=== PATIENT | female | born 1955 | race Caucasian/White ===

== ENCOUNTER 2023-03-16 15:34 | Outpatient (OUT) | payer BC, SELFPAY ==
--- NOTE | 2023-03-16 | MM_ITS ---
Patient: JESS BACON Exam Date: 03/16/2023 : 1955 Gender:F Ordering : MRS. MELODY SHEA . Admission #: [id number] Family : Order #: [id number] CLICK HERE TO VIEW EXAM RADIOLOGY REPORT PROCEDURE: MM TOMOSYNTHESIS SCREENING BI COMPARISON: MG MAMM SCREEN QUEENIE W CAD, 06/06/2019. MG MAMM SCREEN QUEENIE W CAD, 01/04/2018. MG MAMM QUEENIE SCRN W CAD DIG, 07/02/2009. MG MAMM QUEENIE SCRN W CAD DIG, 04/07/2004. INDICATIONS: Screening mamm Calculator Name NCI Breast Cancer Risk Assessment Tool 5 Year Breast Cancer Risk 2.50% Lifetime Breast Cancer Risk 8.50% Personal Breast Cancer No Personal Ovarian Cancer No Treatments None Family Cancers None LOCATION: [facility] BREAST COMPOSITION: Extremely dense, which lowers the sensitivity of mammography. FINDINGS: DIAGNOSTIC CATEGORY 1--NEGATIVE. RIGHT BREAST: No significant suspicious finding. No significant change has occurred. LEFT BREAST: No significant suspicious finding. No significant change has occurred. RECOMMENDATIONS: ROUTINE MAMMOGRAM AND CLINICAL EVALUATION IN 12 MONTHS. PLEASE NOTE: A NORMAL MAMMOGRAM DOES NOT EXCLUDE THE POSSIBILITY OF BREAST CANCER. A CLINICALLY SUSPICIOUS PALPABLE LUMP SHOULD BE BIOPSIED. Dictated by: Ludin Aleman M.D. on 03/17/2023 at 12:59 Approved by: Ludin Aleman M.D. on 03/17/2023 at 13:01
== END 2023-03-16 15:35 | disposition home or self-care (01) ==
LOC: MAMMO 15:39
PROVIDERS: PCP Nurse Practitioner; Visit Provider Nurse Practitioner
DX: Z12.31 Encounter for screening mammogram for malignant neoplasm of breast (principal)
CPT/HCPCS: 77063; 77067

== ENCOUNTER 2023-05-07 09:55 | Outpatient (OUT) | payer MEDICARE, SELFPAY ==
--- NOTE | 2023-05-07 10:04 | XR_ITS ---
The [address] [address] Patient Name: JESS BACON MRN: [id number] date: 1955 Sex: F Assigned Patient Location: [facility] Current Patient Location: [facility] Accession/Order Number: [id number] Exam Date: 05/07/2023 10:10 Report Date: 05/07/2023 11:11 At the request of: MELODY SHEA Procedure: XR DEXA axial skeleton DEXA bone density study CLINICAL: 67 years Female. Evaluate bone mineral density. The bone density study was assessed by dual-energy x-ray absorptiometry. Areas examined in AP projection. The test results are expressed in T-Score, which is used for diagnosis for osteoporosis, and reflects the standard deviations from the mean peak bone mineral density in young adults. Additional information regarding the Z-Score reflects the standard deviations from the mean peak bone mineral density for age- and gender-matched subjects. Lumbar Spine (L1-L4): BMD (gm/cm2): 0.911 T-Score: -2.2 Left Hip (total): BMD (gm/cm2): 0.766 T-Score: -1.9 Left Hip (Neck): BMD (gm/cm2): 0.685 T-Score: -2.5 Right Hip (Total): BMD (gm/cm2): 0.749 T-Score: -2.1 Right Hip (Neck): BMD (gm/cm2): 0.700 T-Score: -2.4 XR/XR DEXA axial skeleton IMPRESSION: 1. Bone mineral density by WHO criteria: Osteoporosis. Fracture risk high. REFERENCE: In postmenopausal women and males 50 or over, comparison of the measured bone mineral density with the average value in young normal subjects (the T-Score) has been found to be useful in assessing fracture risk. Fracture risk approximately doubles for each 1.0 standard deviation (SD) that the individuals hip or spine bone mineral density is below the average value of young normal subjects. The World Health Organization (WHO) has provided the following definitions: 1. Normal: T-Score within one standard deviation of young adult mean value (T-Score at or above -1.0). 2. Osteopenia (low bone mass): T-Score more than one standard deviation below the young adult mean but less than 2.5 standard deviations below the young adult mean (T-Score between -1.0 and -2.5). 3. Osteoporosis: T-Score at or more than 2.5 standard deviations below the young adult mean (T-Score at or less than -2.5). 4. Severe Osteoporosis (established osteoporosis): T-Score more than 2.5 standard deviations below young adult and one or more fragility fracture (T-Score less than -2.5 plus fragility fractures). Electronically authenticated by: ALEJANDRO ELMON Date: 05/07/2023 11:11
== END 2023-05-07 09:56 | disposition home or self-care (01) ==
LOC: RAD 09:55
PROVIDERS: PCP Nurse Practitioner; Visit Provider Nurse Practitioner
DX: E28.39 Other primary ovarian failure (principal); M81.0 Age-related osteoporosis without current pathological fracture
CPT/HCPCS: 77080

== ENCOUNTER 2024-03-25 10:15 | Emergency (ER) | payer OTHER, BC, SELFPAY ==
[2024-03-25] VITALS (60 sets, daily range): BP systolic 100–135; BP diastolic 65–81; PULSE 62–96; TEMP 37; O2SAT 91–100; BMI 28.3
--- NOTE | 2024-03-25 10:33 | ECG_ITS ---
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
--- NOTE | 2024-03-25 10:42 | ED_ITS ---
HPI - Abdominal Pain General Chief Complaint: Abdominal Pain Stated Complaint: ABDOMINAL PAIN, DIARRHEA, VOMITING Time Seen by Provider: 03/25/24 10:28 Source: patient Limitations: no limitations History of Present Illness HPI narrative: The patient is coming to us with a 3 days history of generalized abdominal cramping associated with diarrhea, also nausea and vomiting, she mentioned that it all started when she started vomiting, she mentioned that she did not eat or drink anything since because of the nausea The patient denies any blood in stool or blood in vomiting She denies any chest pain sweating , although she did have some subjective fever at home Related Data Home Medications ?Medication ?Instructions ?Recorded ?Confirmed oxybutynin chloride 10 mg 10 mg PO DAILY 03/25/24 03/25/24 tablet,extended release 24 hr Allergies Allergy/AdvReac Type Severity Reaction Status Date / Time No Known Drug Allergies Allergy Verified 03/25/24 10:18 Review of Systems ROS Status of ROS 10 or more systems reviewed and unremark able except as noted in history and below Exam Narrative Exam Narrative: Nurses notes and vital signs reviewed and patient is not hypoxic. General: Well-appearing and in no apparent distress. Skin: Warm, dry, no pallor noted. No rash. Head: Normocephalic, atraumatic. Neck: Supple, non-tender. Eye: Pupils are equal, round and EOMI. No scleral icterus. Ears, Nose, Mouth, and Throat: TM are clear, no nasal mucosal hypertrophy. Oral mucosa is moist, no posterior oropharynx erythema, uvula is mid-line Cardiovascular: Regular Rate and Rhythm without murmur, gallop or rub. Respiratory: No accessory muscle use or respiratory distress. Lungs are clear to auscultation, no wheezing, rales or rhonchi Chest Wall: no tenderness Back: No midline thoracic or lumbar vertebral tenderness. No CVA tenderness Musculoskeletal: normal ROM, no calf or popliteal tenderness, no lower ex tremity edema/swelling GI: Abdomen is soft, non-distended. Normal bowel sounds. No masses appreciated. Epigastric discomfort mild, no rebound, guarding, or rigidity noted. Neurological: A&O x4. No cranial nerve dysfunction observed. No truncal ataxia. Moves all extremities. Sensation intact. Psychiatric: Cooperative and interactive. Normal mood and affect. Constitutional Vital Signs, click to edit/add: Last Vital Signs Temp 98.6 F 03/25/24 10:18 Pulse 70 03/25/24 19:00 Resp 25 H 03/25/24 19:00 BP 130/71 03/25/24 14:41 Pulse Ox 99 03/25/24 19:00 O2 Del Method Room Air 03/25/24 12:33 Course Vital Signs Vital signs: Vital Signs Temperature 98.6 F 03/25/24 10:18 Pulse Rate 88 03/25/24 10:18 Respiratory Rate 18 03/25/24 10:18 Blood Pressure 135/78 03/25/24 10:18 Pulse Oximetry 98 03/25/24 10:18 Temperature 98.6 F 03/25/24 10:18 Pulse Rate 70 03/25/24 19:00 Respiratory Rate 25 H 03/25/24 19:00 Blood Pressure 130/71 03/25/24 14:41 Pulse Oximetry 99 03/25/24 19:00 Oxygen Delivery Method Room Air 03/25/24 12:33 MDM - Abdominal Pain MDM Narrative Medical decision making narrative: The patient EKG in the ER showing sinus rhythm with a heart rate of [address] elevation but there is multiple T wave inversion that are nonspecific in multiple leads The patient T wave inversion Was in lead to 3 and aVF as well as V4 V5 and V6 The patient CBC and chemistry showed no acute significant pathology except for mild leukocytosis and she also had a troponin that is around 6000 The patient had no chest pain at any time her nausea responded to Zofran in the ER The patient had a CAT scan without contrast showing no acute pathology The patient was provided with aspirin 324 mg p.o. The patient case was discussed with in cardiology service plan initia lly was to admit the patient to our facility but I spoke with the hospitalist and called and Dr. Rutherford expressed that the right now the patient preferably will be better to be transferred to cardiology equipped facility and Dr. Stiles agree Patient was accepted by Dr. Cancino awaiting to be transferred Lab Data Labs: Lab Results 03/25/24 03/25/24 03/25/24 Range/Units 10:30 11:30 14:07 WBC 12.6 H (4.0-11.0) 10^3/uL RBC 5.46 H (4.20-5.40) 10^6/uL Hgb 15.8 (12.0-16.0) g/dL Hct 48.8 H (36.0-48.0) % MCV 89.4 (81.0-99.0) fL MCH 28.9 (26.7-34.0) pg MCHC 32.4 (29.9-35.2) g/dL RDW 13.8 (11.0-15.0) % Plt Count 273 (150-450) 10^3/uL MPV 9.7 (9.5-13.5) fL Neut % (Auto) 75.5 H (43.0-75.0) % Lymph % (Auto) 16.6 L (20.5-60.0) % [place] % (Auto) 6.2 (1.7-12.0) % Eos % (Auto) 1.2 (0.9-7.0) % Baso % (Auto) 0.3 (0.2-2.0) % Neut # (Auto) 9.5 H (1.4-6.5) 10^3/uL Lymph # (Auto) 2.1 (1.2-3.8) 10^3/uL [place] # (Auto) 0.8 (0.3-0.8) 10^3/uL Eos # (Auto) 0.2 (0.0-0.7) 10^3/uL Baso # (Auto) 0.0 (0.0-0.1) 10^3/uL Abs Immat Gran (auto) 0.03 (0.00-0.03) 10^3/uL Imm/Tot Granulo (auto) 0.2 (0.0-0.5) % Sodium 140 (136-145) mmol/L Potassium 3.3 L (3.5-5.1) mmol/L Chloride 104 (98-107) mmol/L Carbon Dioxide 28.6 (21.0-32.0) mmol/L Anion Gap 10.7 BUN 12.0 (7.0-18.0) mg/dL Creatinine 0.84 (0.55-1.02) mg/dL Est GFR ( Amer) >60 (>=60) Est GFR (Non-Af Amer) >60 (>=60) BUN/Creatinine Ratio 14.3 Glucose 115 H (74-106) mg/dL Calcium 9.1 (8.5-10.1) mg/dL Magnesium 2.0 (1.8-2.4) mg/dL Total Bilirubin 0.8 (0.2-1.0) mg/dL AST 50 H (15-37) U/L ALT 34 (14-59) U/L Alkaline Phosphatase 49 (46-116) U/L Troponin I High Sens 6445.3 H* 5862.4 H* 5673.2 H* (4.0-51.3) pg/mL Total Protein 7.2 (6.4-8.2) g/dL Albumin 3.7 (3.4-5.0) g/dL Globulin 3.5 g/dL Albumin/Globulin Ratio 1.1 Lipase 34.0 (16.0-77.0) U/L Discharge Plan Discharge Chief Complaint: Abdominal Pain Clinical Impression: Non-ST elevation AL (NSTEMI), Intractable nausea and vomiting Time of Disposition Decision: 14:34 Prescriptions / Home Meds: No Action oxybutynin chloride 10 mg tablet extended release 24hr 10 mg PO DAILY Print Language: Guyanese Referrals: MELODY SHEA [Primary Care Provider] - 1 week
[2024-03-25 10:43] LABS: Basophils Percent Auto 0.3 % (0.2-2.0); Eosinophils Absolute Auto 0.2 10^3/uL (0.0-0.7); Eosinophils Percent Auto 1.2 % (0.9-7.0); Hematocrit 48.8 % (36.0-48.0); Hemoglobin 15.8 g/dL (12.0-16.0); Immature Granulocytes Abs Auto 0.03 10^3/uL (0.00-0.03); Immature Granulocytes Pct Auto 0.2 % (0.0-0.5); Lymphocytes Absolute Auto 2.1 10^3/uL (1.2-3.8); Lymphocytes Percent Auto 16.6 % (20.5-60.0); Mean Corpuscular HGB Conc 32.4 g/dL (29.9-35.2); Mean Corpuscular Hemoglobin 28.9 pg (26.7-34.0); Mean Corpuscular Volume 89.4 fL (81.0-99.0); Mean Platelet Volume 9.7 fL (9.5-13.5); Monocytes Absolute Auto 0.8 10^3/uL (0.3-0.8); Monocytes Percent Auto 6.2 % (1.7-12.0); Neutrophils Absolute Auto 9.5 10^3/uL (1.4-6.5); Neutrophils Percent Auto 75.5 % (43.0-75.0); Platelet Count 273 10^3/uL (150-450); Red Blood Count 5.46 10^6/uL (4.20-5.40); Red Cell Distribution Width 13.8 % (11.0-15.0); White Blood Count 12.6 10^3/uL (4.0-11.0)
[2024-03-25] MEDS: FAMOTIDINE/PF 20 MG/2 ML VIAL IV (10:44)
[2024-03-25] MEDS: ONDANSETRON PF 4 MG/2 ML VIAL IV (10:44)
[2024-03-25] MEDS: 0.9 % SODIUM CHLORIDE 1,000 ML 1000 ML IV (10:44)
[2024-03-25] MEDS: KETOROLAC TROMETHAMINE 30 MG/ML VIAL 15 MG IVP (10:44)
[2024-03-25 10:56] LABS: Alanine Aminotransferase 34 U/L (14-59); Albumin Globulin Ratio 1.1; Albumin Level 3.7 g/dL (3.4-5.0); Alkaline Phosphatase 49 U/L (46-116); Anion Gap 10.7; Aspartate Amino Transferase 50 U/L (15-37); BUN Creatinine Ratio 14.3; Bilirubin Total 0.8 mg/dL (0.2-1.0); Calcium 9.1 mg/dL (8.5-10.1); Carbon Dioxide 28.6 mmol/L (21.0-32.0); Chloride 104 mmol/L (98-107); Estimated GFR (African America >60 (>=60); Estimated GFR (Non-African Ame >60 (>=60); Globulin 3.5 g/dL; Glucose 115 mg/dL (74-106); Potassium 3.3 mmol/L (3.5-5.1); Sodium 140 mmol/L (136-145); Total Protein 7.2 g/dL (6.4-8.2)
[2024-03-25 10:59] LABS: Troponin I High Sensitivity 6445.3 pg/mL (4.0-51.3)
--- NOTE | 2024-03-25 11:24 | XR_ITS ---
The [address] [address] Patient Name: JESS BACON MRN: [id number] date: 1955 Sex: F Assigned Patient Location: ER Current Patient Location: ER Accession/Order Number: [id number] Exam Date: 03/25/2024 11:50 Report Date: 03/25/2024 12:17 At the request of: ELINOR RODRIGUEZ Procedure: XR chest 1V EXAM: XR chest 1V HISTORY: . pain epigastric COMPARISON: None. TECHNIQUE: Single view of the chest FINDINGS: Heart and vascularity are unremarkable. Lungs are free of focal infiltrates. EKG leads overlie the chest. XR/XR chest 1V IMPRESSION: No acute heart or lung disease identified. Electronically authenticated by: ISA SUTTON Date: 03/25/2024 12:17
[2024-03-25 11:55] LABS: Troponin I High Sensitivity 5862.4 pg/mL (4.0-51.3)
--- NOTE | 2024-03-25 12:52 | CT_ITS ---
[place] [id number] Patient Name: JESS BACON MRN: [id number] date: 1955 Sex: F Assigned Patient Location: ER Current Patient Location: ER Accession/Order Number: [id number] Exam Date: 03/25/2024 13:00 Report Date: 03/25/2024 14:13 At the request of: ELINOR RODRIGUEZ Procedure: CT abdomen pelvis wo con EXAMINATION: CT abdomen pelvis wo con, 03/25/2024 1:00 PM EDT HISTORY: abd pain COMPARISON: 05/04/2020 TECHNIQUE: CT scan of the abdomen and pelvis was performed without IV contrast. CT dose reduction technique was used, including Automated Exposure Control. FINDINGS: LOWER CHEST: The visualized lungs are clear. LIVER: Unremarkable. GALLBLADDER AND BILIARY SYSTEM: Status post cholecystectomy. The common bile duct measures up to 8 mm. No significant intrahepatic biliary ductal dilatation. SPLEEN: Unremarkable. PANCREAS: Unremarkable. ADRENAL GLANDS: Unremarkable. KIDNEYS AND URETERS: No nephrolithiasis or hydronephrosis. Bilateral parapelvic cysts noted. There is a fat-containing lesion in the lower pole the right kidney measuring 6 mm compatible with an angiomyolipoma. BLADDER: Unremarkable. GASTROINTESTINAL TRACT: Sigmoid diverticulosis without evidence of diverticulitis. No evidence of bowel obstruction. Status post appendectomy. VASCULATURE: The abdominal aorta is normal in caliber. RETROPERITONEUM: No lymphadenopathy. PERITONEUM/MESENTERY: No abdominal ascites. No free air. PELVIS: Small amount of free fluid in the pelvis. No lymphadenopathy. BODY WALL: Tiny fat-containing umbilical hernia. BONES: No acute abnormality. CT/CT abdomen pelvis wo con IMPRESSION: 1. No acute process in the abdomen or pelvis. 2. Small amount of free fluid in the pelvis. 3. Sigmoid diverticulosis without evidence of diverticulitis. Electronically authenticated by: TIFFANIE MARI Date: 03/25/2024 14:13
[2024-03-25] MEDS: ASPIRIN 81 MG TAB.CHEW 324 MG PO (12:55)
[2024-03-25 14:30] LABS: Troponin I High Sensitivity 5673.2 pg/mL (4.0-51.3)
--- NOTE | 2024-03-25 14:45 | ECG_ITS ---
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
== END 2024-03-25 20:42 | disposition short-term general hospital (02) ==
PROVIDERS: Emergency Provider Emergency Medicine; PCP Nurse Practitioner
DX: I21.4 Non-ST elevation (NSTEMI) myocardial infarction (principal); R11.2 Nausea with vomiting, unspecified
CPT/HCPCS: 36415; 71045; 74176; 80053; 83690; 83735; 84484; 85025; 93005; 96361; 96374; 96375; 99285; J1885; J2405

== ENCOUNTER 2024-05-25 14:53 | Outpatient (OUT) | payer OTHER, BC, SELFPAY ==
--- NOTE | 2024-05-25 | XR_ITS ---
The [address] [address] Patient Name: JESS BACON MRN: [id number] date: 1955 Sex: F Assigned Patient Location: Current Patient Location: Accession/Order Number: [id number] Exam Date: 05/25/2024 14:56 Report Date: 05/26/2024 12:51 At the request of: IRA DUMONT Procedure: XR foot RT min 3V PROCEDURE: XR foot RT min 3V COMPARISON: None. HISTORY: RIGHT FOOT PAIN FINDINGS: BONES:No acute fracture or dislocation. Mild enthesopathic spurring of the calcaneus at the Achilles and plantar insertions. Mild to moderate degenerative change first metatarsal-phalangeal joint SOFT TISSUES:Negative. No visible soft tissue swelling. EFFUSION:None visible. OTHER: Negative. XR/XR foot RT min 3V IMPRESSION: Degenerative changes Electronically authenticated by: ISA RIOS Date: 05/26/2024 12:51
== END 2024-05-25 14:54 | disposition home or self-care (01) ==
LOC: EC 14:55
PROVIDERS: PCP Nurse Practitioner; Visit Provider Physician Assistant
DX: M79.671 Pain in right foot (principal)
CPT/HCPCS: 73630

== ENCOUNTER 2024-05-31 11:50 | Outpatient (OUT) | payer OTHER, BC, SELFPAY ==
--- NOTE | 2024-05-31 12:00 | XR_ITS ---
The [place] [id number] Patient Name: JESS BACON MRN: [id number] date: 1955 Sex: F Assigned Patient Location: [facility] Current Patient Location: Accession/Order Number: [id number] Exam Date: 05/31/2024 12:03 Report Date: 06/02/2024 06:23 At the request of: MELODY SHEA Procedure: XR hip RT min 2V PROCEDURE: XR hip RT min 2V HISTORY: Fall, Severe Right Low Back Pain, Right Hip Pain COMPARISON: None. FINDINGS: BONES:No fracture, acute abnormality, or significant arthropathy. SOFT TISSUES:No visible soft tissue swelling. EFFUSION:None visible. OTHER: Negative. XR/XR hip RT min 2V IMPRESSION: 1. No acute bone abnormality or significant degenerative joint disease. Electronically authenticated by: JOSE FRANCISCO MURCIA Date: 06/02/2024 06:23
--- OUTSIDE RECORDS SUMMARY | 2024-05-31 12:12 | XMS_ITS | CCD ---
Author Organization [facility] Care Team Providers Care Lifeguard Name Role Phone ABIOLA, DR GINA Berg Primary Care Unavailable PAY, DR ROBLES Admitting Unavailable PAY, DR ROBLES Attending Unavailable IVETTE RICHMOND Consulting Unavailable Millie Gonzalez Primary Care Physician [phone] LAUREANO AMARAL Referring Unavailable LAUREANO AMARAL Attending Unavailable LAUREANO AMARAL Referring Unavailable LARISSA SUTTON Attending Unavailable LARISSA SUTTON Referring Unavailable CANCINO, MAXIMINO CHUL Referring Unavailable MARY GARCIA Referring Unavailabl e CANCINO, MAXIMINO CHUL Referring Unavailable HORANI, SUDHIR Admitting Unavailable HOLGUIN, GISELA Attending Unavailable DIAB, VANNA Referring Unavailable ALGHOTHLEXI MOHAMAD Attending Unavailable MARY GARCIA Referring Unavailabl e MARY GARCIA Referring Unavailabl e CARLOS العراقي Attending Provider MD Luisito Roth Primary Care Provider Zoila العراقي Attending Unavailable Zoila لاعراقي Admitting Unavailable Luisito Roth Primary Care Unavailable Millie Gonzalez Attending Unavailable Luisito Roth Attending Unavailable CarlosMillie Attending Unavailable CarlosMillie Attending Unavailable CarlosMillie Attending Unavailable CarlosMillie Attending Unavailable CarlosMillie Attending Unavailable Luisito Roth Admitting Unavailable PHILLIP NUNEZ Attending Unavailable CarlosMillie Attending Unavailable CarlosMillie Attending Unavailable CarlosMillie Attending Unavailable CarlosMillie Attending Unavailable CarlosMillie Attending Unavailable CarlosMillie Attending Unavailable Allergies Allergy Classification Reported Allergen(s) Allergy Type Date of Onset Reaction(s) Facility (1 source) No Known Medication Allergies; Translations: [No Known Medication Allergies] Propensity to adverse reactions (disorder) [facility] Repository Medications Current Medications Medication Drug Class(es) Dates Sig (Normalized) Sig (Original) aspirin 81 mg delayed release oral tablet (1 source) Platelet Aggregation Inhibitor, Nonsteroidal Anti-inflammatory Drug Start: 4 take 81 mg by mouth once daily Aspirin Active 81 MG PO Daily May 27, 2024 12:00am azithromycin 500 mg oral tablet (1 source) Macrolide Antimicrobial Start: 4 End: 4 take 1 tablet by mouth once daily Zithromax 500 mg oral tablet 500 mg = 1 tab(s), Oral, Daily, X 5 day(s), # 5 tab(s), Refills(s) 0, Pharmacy: [id number], 158, cm, 10/29/23 13:27:00 EST, Height/Length Dosing, 53, kg, 10/29/23 13:27:00 EST, Weight Dosing Start Date: 10/29/23 Stop Date: 11/03/23 Status: Ordered Cholecalciferol (1 source) Vitamin D Start: 1 take 100 ug by mouth once daily Cholecalciferol (Vitamin D3) Active 100 MCG PO Daily January 20, 2021 12:00am Compression stockings (1 source) Start: 3 Compression stockings Compression stockings, See Instructions, 1 EA, 0, wear stocking when on your feet > 8 hours per day, Supply Start Date: 06/30/23 Status: Ordered lidocaine 0.05 mg/mg medicated patch (1 source) Antiarrhythmic, Amide Local Anesthetic Start: 4 apply 1 dose topically once daily Lidocaine Active 1 PATCH TOPICAL Daily 20 06May 27, 2024 12:00am leave on most painful area for up to 12 hrs meloxicam 15 mg oral tablet (1 source) Nonsteroidal Anti-inflammatory Drug Start: 4 Meloxicam Active MG PO May 27, 2024 12:00am methylPREDNISolone (2 sources) Corticosteroid Start: 4 Methylprednisolone Active MG PO May 27, 2024 12:00am Start: 10-25-2023 End: 02-01-2024 take 1 tablet by mouth once Methylprednisolone (Medrol (Marco Antonio)) 4 mg tablets,dose pack Discontinued 0 PO per package directions October 25, 2023 1:00am February 01, 2024 9:33am PO PER PKG DIR for 6 days 24 hr oxybutynin chloride 10 mg extended release oral tablet (1 source) Cholinergic Muscarinic Antagonist Start: 05-27-2024 Oxybutynin Chloride Active MG PO May 27, 2024 12:00am Vitamin D3 1999 intl units oral Tab (1 source) Start: 11-30-2022 take 1 tablet by mouth once daily Vitamin D3 2000 intl units oral Tab 50 mcg, Oral, Daily, tab(s), Refills(s) 0 Start Date: 11/30/22 Status: Ordered Completed/Discontinued Medications Medication Drug Class(es) Dates Sig (Normalized) Sig (Original) amoxicillin 500 mg oral capsule (1 source) Penicillin-class Antibacterial Start: 02-01-2024 End: 05-27-2024 take 500 mg by mouth twice daily Amoxicillin Discontinued 500 MG PO Twice daily 25 06February 01, 2024 12:00am May 27, 2024 2:06pm benzonatate 200 mg oral capsule (1 source) Non-narcotic Antitussive Start: 10-25-2023 End: 02-01-2024 Benzonatate Discontinued 200 MG PO 2-3 TIMES PER DAY October 25, 2023 1:00am February 01, 2024 9:33am cephalexin 500 mg oral capsule (1 source) Cephalosporin Antibacterial Start: 10-25-2023 End: 02-01-2024 Cephalexin Discontinued MG PO October 25, 2023 1:00am February 01, 2024 9:33am escitalopram 5 mg oral tablet (3 sources) Serotonin Reuptake Inhibitor Start: 02-01-2024 End: 05-27-2024 take 5 mg by mouth once daily Escitalopram Oxalate Discontinued 5 MG PO Daily February 01, 2024 9:37am May 27, 2024 2:07pm Start: 10-25-2023 End: 02-01-2024 Escitalopram Oxalate Discont inued MG PO October 25, 2023 1:00am February 01, 2024 9:37am Start: 05-25-2023 take 1 tablet by phillip once daily escitalopram 5 mg oral tablet 5 mg = 1 tab(s), Oral, Daily, # 90 tab(s), Refills(s) 3, Pharmacy: [id number], 157, cm, 05/25/23 15:27:00 EDT, Height/Length Dosing, 55.1, kg, 05/25/23 15:27:00 EDT, Weight Dosing Start Date: 05/25/23 Status: Ordered Problems Problem Classification Problem Date Documented Date Episodic/Chronic Acute bronchitis (2 sources) Acute bronchitis; Translations: [Acute bronchitis, unspecified] Onset: 10-29-2023 Episodic Acute myocardial infarction (2 sources) Non-ST elevation (NSTEMI) myocardial infarction; Translations: [Non-ST elevation (NSTEMI) myocardial infarction] Onset: 03-25-2024 Chronic Anxiety disorders (3 sources) Anxiety disorder; Translations: [Anxiety disorder, unspecified] Onset: 03-25-2024 11-27-2022 Chronic Chronic obstructive pulmonary disease and bronchiectasis (1 source) Bronchitis; Translations: [Bronchitis, not specified as acute or chronic] 02-01-2024 Episodic E Codes: Fall (2 sources) Fall; Translations: [Unspecified fall, initial encounter] Onset: 05-27-2024 05-27-2024 Episodic Immunizations and screening for infectious disease (1 source) Contact with and (suspected) exposure to other viral communicable diseases; Translations: [Contact with or exposure to other viral diseases] 02-01-2024 Episodic Mycoses (1 source) Onychomycosis 11-27-2022 Episodic Noninfectious gastroenteritis (2 sources) Noninfective gastroenteritis and colitis, unspecified; Translations: [Noninfective gastroenteritis and colitis, unspecified] Onset: 03-25-2024 Episodic Nutritional deficiencies (1 source) Vitamin D deficiency; Translations: [Vitamin D deficiency, unspecified] 02-01-2024 Chronic Other circulatory disease (4 sources) Hemorrhage, not elsewhere classified; Translations: [HEMORRHAGE NOT ELSEWHERE CLASSIFIED] Onset: 07-17-2022 Episodic Other connective tissue disease (1 source) Dupuytren's contracture 11-27-2022 Episodic Other connective tissue disease (1 source) Triggering of digit 09-30-2023 Episodic Other nervous system disorders (1 source) 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 Chronic Other nervous system disorders (1 source) Neuropathy of lower limb 06-30-2023 Chronic Other non-traumatic joint disorders (1 source) Pain in elbow 06-30-2023 Episodic Other screening for suspected conditions (not mental disorders or infectious disease) (3 sources) Abnormal result of other cardiovascular function study; Translations: [Patient encounter status] Onset: 03-25-2024 Episodic Other skin disorders (1 source) Ingrowing great toenail 09-30-2023 Episodic Other upper respiratory infections (4 sources) Acute frontal sinusitis, unspecified; Translations: [Acute frontal sinusitis] Onset: 10-29-2023 Episodic Otitis media and related conditions (1 source) Acute bilateral otitis media ; Translations: [Otitis media, unspecified, bilateral] 02-01-2024 Episodic Residual codes; unclassified (2 sources) Other specified postprocedural states; Translations: [Other specified postprocedural states] Onset: 03-25-2024 Episodic Spondylosis; intervertebral disc disorders; other back problems (2 sources) Lumbosacral spondylosis; Translations: [Spondylosis] 11-27-2022 Chronic Spondylosis; intervertebral disc disorders; other back problems (2 sources) Low back pain; Translations: [Low back pain] 05-27-2024 Episodic Syncope (1 source) Syncope 11-27-2022 Episodic Unclassified (2 sources) Patient encounter status 03-03-2023 Results Test Name Value Interpretation Reference Range Facil ity Ambulatory Visit Summaryon 0 05-29-2024 Ambulatory Visit Summary Ambulatory Visit Summary JESS BACON Sola :1955 Visit Date:05/29/2024 Ambulatory Visit Instructions Your Diagnosis BMI 21.0-21.9, adult Nonsmoker Your Care Team Attending Physician - Millie Florentino Primary Care Physician - Millie Florentino This Is Your Medications List Misc Prescription (Compression stockings) aspirin cholecalciferol (Vitamin D3 2000 intl units oral Tab) meloxicam (meloxicam 15 mg Tab) oxybutynin (oxybutynin 10 mg ER Tab) Procedures Performed Appendectomy, Cholecystectomy, Colonoscopy, D (dilation) and C (curettage) of uterus, Partial hysterectomy. Discharge Vitals Temperature (Temporal Artery) 36.5 ?C Heart Rate (Peripheral) 62 Respiratory Rate 16 Blood Pressure 130/72 Height 158 cm Height 62 in Weight 52.5 kg Weight 115.5 lb BMI 21.03 What to do next Scheduled Follow-Up Appointments 2023 2:30 PM EDT With: Where: [address] [address]- 2023 3:00 PM EDT With: Millie Florentino Where: [address] [address]- Medications What How Much When Why Instructions Unchanged aspirin 81 Milligram By Mouth Every day Unchanged cholecalciferol (Vitamin D3 2000 intl units oral Tab) 50 Microgram By Mouth Every day Unchanged meloxicam (meloxicam 15 mg Tab) See instructions Take 1 tablet by mouth once daily Unchanged Misc Prescription (Compression stockings) See instructions BMI 22.0-22.9, adult Non-smoker wear stocking when on your feet > 8 hours per day Unchanged oxybutynin (oxybutynin 10 mg ER Tab) See instructions Take 1 tablet by mouth once daily Allergies No Known Medication Allergies Problems Ongoing - Any problem that you are currently receiving treatment for. Acute bronchitis Acute frontal sinusitis Anxiety disorder Breast cancer screening by mammogram Cerumen impaction Dupuytrens contracture Fluid level behind tympanic membrane of both ears Foot pain, right Gastritis History of non-ST elevation myocardial infarction (NSTEMI) Hospital discharge follow-up Ingrown right big toenail Lower extremity neuropathy Onychomycosis Osteoarthritis of lumbosacral spine Radiculopathy Right elbow pain Sore throat Spondylosis Syncope Trigger ring finger of right hand Wellness examination Historical - Any problem that you are no longer receiving treatment for. NSTEMI (non-ST elevated myocardial infarction) Patient Survey You may receive a survey via text or e-mail asking about your office visit. Please share your experience with us by completing your survey. We appreciate your feedback and thank you for choosing us for your care. Normal [facility] Family Medicine Office/Clini c Noteon 05-29-2024 Family Medicine Office/Clinic Note Family Medicine Office/Clinic Note Chief Complaint Pain following fall HPI Staff Pt presents today after a fall on Wednesday Onset: Wednesday Location:above Rt hip/Rt side Characteristics:_deni es bruising Aggravated by: walking, sitting, standing Relieved by: Tylenol History of Present Illness pt had a fall 2 days and landed on corner of coffee table. went to urgent care. x rays were negative Review of Systems PHQ Score Initial Depression Screen Score: 0 SCORE Physical Exam Vitals & Measurements T: 36.5 ?C(Temporal Artery) HR: 62(Peripheral) RR: 16 BP: 130/72 SpO2: 98% HT: 62 in HT: 158 cm WT: 52.5 kg WT: 115.5 lb BMI: 21.03 General: alert, no acute distress ENMT: oral mucosa moist, no pharyngeal erythema or exudate Cardiovascular: regular rate and rhythm, normal peripheral perfusion Respiratory: Lungs CTA, respirations non labored Extremities: no deformity, no trauma Neurological: oriented x 4, LOC appropriate for age, CN II-XII intact, motor strength equal & normal bilaterally, speech normal tenderness and bruising of right lower back Assessment/Plan 1. History of recent fall (Z91.81: History of falling) pt was trying to clean ceiling fan and fell and landed on corner of coffee table. Ordered: tramadol, 50 mg = 1 tab(s), Oral, q12hr, PRN for pain, # 30 tab(s), Refills(s) 0, Pharmacy: [facility], 158, cm, 05/29/24 13:41:00 EDT, Height/Length Dosing, 52.5, kg, 05/29/24 13:41:00 EDT, Weight Dosing 2. Right low back pain (M54.50: Low back pain, unspecified) pt fell and landed on right lower back Ordered: tramadol, 50 mg = 1 tab(s), Oral, q12hr, PRN for pain, # 30 tab(s), Refills(s) 0, Pharmacy: [facility], 158, cm, 05/29/24 13:41:00 EDT, Height/Length Dosing, 52.5, kg, 05/29/24 13:41:00 EDT, Weight Dosing 3. BMI 21.0-21.9, adult (Z68.21: Body mass index [BMI] 21.0-21.9, adult) BMI education Ordered: tramadol, 50 mg = 1 tab(s), Oral, q12hr, PRN for pain, # 30 tab(s), Refills(s) 0, Pharmacy: [facility], 158, cm, 05/29/24 13:41:00 EDT, Height/Length Dosing, 52.5, kg, 05/29/24 13:41:00 EDT, Weight Dosing Body Mass Index (BMI) documented 3008F Current tobacco non-user 1036F Depression Screening Negative 3352F Discharge medications reconciled with current medications in outpatient record 1111F Medication list documented in medical record 1159F Patient screen for fall risk: no falls in last year or 1 fall with no injury in last year 1101F Review of all meds by a prescribing practitioner or clinical pharmacist documented in EHR 1160F 4. Nonsmoker (Z78.9: Other specified health status) continue not smoking Ordered: tramadol, 50 mg = 1 tab(s), Oral, q12hr, PRN for pain, # 30 tab(s), Refills(s) 0, Pharmacy: [facility], 158, cm, 05/29/24 13:41:00 EDT, Height/Length Dosing, 52.5, kg, 05/29/24 13:41:00 EDT, Weight Dosing Follow-up No qualifying data available Problem List/Past Medical History Ongoing Acute bronchitis Acute frontal sinusitis Anxiety disorder Breast cancer screening by mammogram Cerumen impaction Dupuytrens contracture Fluid level behind tympanic membrane of both ears Foot pain, right Gastritis History of non-ST elevation myocardial infarction (NSTEMI) History of recent fall Hospital discharge follow-up Ingrown right big toenail Lower extremity neuropathy Onychomycosis Osteoarthritis of lumbosacral spine Radiculopathy Right elbow pain Right low back pain Sore throat Spondylosis Syncope Trigger ring finger of right hand Wellness examination Historical NSTEMI (non-ST elevated myocardial infarction) Procedure/Surgical History Appendectomy, Cholecystectomy, Colonoscopy, D (dilation) and C (curettage) of uterus, Partial hysterectomy. Medications aspirin, 81 mg, Oral, Daily Compression stockings, See Instructions meloxicam 15 mg Tab, See Instructions oxybutynin 10 mg ER Tab, See Instructions, 3 refills traMADOL 50 mg Tab, 50 mg= 1 tab(s), Oral, q12hr, PRN Vitamin D3 2000 intl units oral Tab, 50 mcg, Oral, Daily Allergies No Known Medication Allergies Social History Alcohol - Denies Alcohol Use, 11/30/2022 Household alcohol concerns: No., 04/23/2023 Substance Abuse - Denies Substance Abuse, 11/30/2022 Household substance abuse concerns: No., 11/30/2022 Tobacco - Denies Tobacco Use, 11/30/2022 Never (less than 100 in lifetime) Tobacco Use:. Never Smokeless Tobacco Use:. Cigarettes, Household tobacco concerns: No. Yes, 05/29/2024 Family History Emphysema: Father. Schizoaffective disorder: Mother. Immunizations Vaccine Date Status Comments influenza virus vaccine, inactivated - Not Given Patient Refuses SARS-CoV-2 mRNA (tozinameran 5y-11y) vac - Not Given Patient Refuses Normal [facility] Comment on above: Result Comment: Elec tronically Signed By: Carlos BARRON, Millie Gallagher\.br\Date and Time Signed: 05/29/24 14:13 EDT Provider Letteron 05-29-2024 Provider Letter Provider Letter May 29, 2024 JESS [address]ON [address] [place] [address] : 1955 To Whom It May Concern, Please excuse above patient from work due to medical Date of Illness: From: _ 05-29-24 To: _ 05-30-24 May Return to Work On: 05-31-24 Restrictions: _ Comments: _ Sincerely, Normal [facility] XR lumbar spine min 4V*on XR lumbar spine min 4V* [facility] [address] [place] [id number] XRay Report Signed Patient: Jess Bacon MR#: [id number] 6 : 1955 Acct:[id number] Age/Sex: 68 / F ADM Date: 05/27/24 Loc: XDUCLY Room: Type: [facility] Attending Dr: 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 Pain mid lumbar. COMPARISON: None FINDINGS: Bones are grossly demineralized limiting evaluation for fracture. Vertebral body heights appear maintained. Scattered endplate and facet joint degenerative changes with mild disc space narrowing L5-S1. SI joints demonstrate degenerative change. XR/XR lumbar spine min 4V* IMPRESSION: DEGENERATIVE CHANGES INVOLVING THE LUMBAR SPINE WITHOUT DEFINITIVE ACUTE BONY PROCESS. Impression dictated by: Eleuterio Marinelli Jr., D.O.05/27/2024 2:47 PM Dictation Location: [facility] Transcribed By: [facility] 05/27/24 1447 Dictated By: Eleuterio Marinelli Jr, DO 05/27/24 1446 Signed By: 05/27/24 1447 Normal [facility] Ambulatory Visit Summaryon 0 05-12-2024 Ambulatory Visit Summary Ambulatory Visit Summary JESS BACON :1955 Visit Date:05/12/2024 Ambulatory Visit Instructions Your Diagnosis Foot pain, right Non-smoker BMI 20.0-20.9, adult Your Care Team Attending Physician - Millie Florentino Primary Care Physician - Millie Florentino This Is Your Medications List Misc Prescription (Compression stockings) aspirin carbamide peroxide otic (Debrox) cholecalciferol (Vitamin D3 2000 intl units oral Tab) meloxicam (meloxicam 15 mg Tab) methylPREDNISolone (Medrol 4 mg Tab) oxybutynin (oxybutynin 10 mg ER Tab) polyethylene glycol 3350 (MiraLax) Procedures Performed Appendectomy, Cholecystectomy, Colonoscopy, D (dilation) and C (curettage) of uterus, Partial hysterectomy. Discharge Vitals Temperature (Temporal Artery) 36.5 ?C Heart Rate (Peripheral) 70 Respiratory Rate 16 Blood Pressure 110/68 Height 158.0 cm Height 62 in Weight 52.3 kg Weight 115.06 lb BMI 20.95 What to do next Scheduled Follow-Up Appointments 2023 2:30 PM EDT With: Where: [address] [address] 2023 3:00 PM EDT With: Millie Florentino Where: [address] [address]- Someone Will Contact You Regarding These Appointments [facility] External Ambulatory Referral, Podiatry, Dr. NairKy, 05/12/24 10:37:00 EDT, Foot pain, right Non-smoker BMI 20.0-20.9, adult Medications What How Much When Why Instructions New meloxicam (meloxicam 15 mg Tab) 1 Tablets By Mouth Every day Foot pain, right Non-smoker BMI 20.0-20.9, adult Pickup at [facility] 142 New methylPREDNISolone (Medrol 4 mg Tab) 1 Packets By Mouth As Directed Foot pain, right Non-smoker BMI 20.0-20.9, adult Duration: 6 Days as directed on package labeling Pickup at [facility] 142 Unchanged aspirin 81 Milligram By Mouth Every day Unchanged carbamide peroxide otic (Debrox) See instructions 5 drop(s) Unchanged cholecalciferol (Vitamin D3 2000 intl units oral Tab) 50 Microgram By Mouth Every day Unchanged Misc Prescription (Compression stockings) See instructions BMI 22.0-22.9, adult Non-smoker wear stocking when on your feet > 8 hours per day Unchanged oxybutynin (oxybutynin 10 mg ER Tab) See instructions Take 1 tablet by mouth once daily Unchanged polyethylene glycol 3350 (MiraLax) 17 Gram By Mouth Every day Pharmacy Information [facility]: [address] [place], [place] [id number] [phone] Allergies No Known Medication Allergies Problems Ongoing - Any problem that you are currently receiving treatment for. Acute bronchitis Acute frontal sinusitis Anxiety disorder Breast cancer screening by mammogram Cerumen impaction Dupuytrens contracture Fluid level behind tympanic membrane of both ears Foot pain, right Gastritis History of non-ST elevation myocardial infarction (NSTEMI) Hospital discharge follow-up Ingrown right big toenail Lower extremity neuropathy Onychomycosis Osteoarthritis of lumbosacral spine Radiculopathy Right elbow pain Sore throat Spondylosis Syncope Trigger ring finger of right hand Wellness examination Historical - Any problem that you are no longer receiving treatment for. NSTEMI (non-ST elevated myocardial infarction) Patient Survey You may receive a survey via text or e-mail asking about your office visit. Please share your experience with us by completing your survey. We appreciate your feedback and thank you for choosing us for your care. Normal [facility] Family Medicine Office/Clini c Noteon 05-12-2024 Family Medicine Office/Clinic Note Family Medicine Office/Clinic Note HPI Staff Jess is a 68 year old female presenting with Onset: started a April just getting worse Location: right foot Duration: Characteristics:_ swelling Aggravated by: walking on it, and stand all day at work Relieved by: Aspecream helped a little bit Timing:best in the morning Associated Symptoms:_ no History of Present Illness pt presents for foot pain on bottom of foot. denies injury Review of Systems PHQ Score Initial Depression Screen Score: 0 SCORE Physical Exam Vitals & Measurements T: 36.5 ?C(Temporal Artery) HR: 70(Peripheral) RR: 16 BP: 110/68 SpO2: 99% HT: 62 in HT: 158.0 cm WT: 52.3 kg WT: 115.06 lb BMI: 20.95 General: alert, no acute distress ENMT: oral mucosa moist, no pharyngeal erythema or exudate Cardiovascular: regular rate and rhythm, normal peripheral perfusion Respiratory: Lungs CTA, respirations non labored Extremities: no deformity, no trauma Neurological: oriented x 4, LOC appropriate for age, CN II-XII intact, motor strength equal & normal bilaterally, speech normal tenderness along ball of foot Assessment/Plan 1. Foot pain, right (M79.671: Pain in right foot) pt presents today c/o right foot pain at ball of foot. pain started the beginning of April. but is worsening. especially when she is on her feet all day at work. will send referral to Dr. Schultz for further evaluation. medrol dose pack and meloxicam sent to pharmacy. RTC as needed Ordered: meloxicam, 15 mg = 1 tab(s), Oral, Daily, # 30 tab(s), Refills(s) 0, Pharmacy: [facility], 158, cm, 05/12/24 10:25:00 EDT, Height/Length Dosing, 52.3, kg, 05/12/24 10:25:00 EDT, Weight Dosing methylPREDNISolone, = 1 packet(s), Oral, As Directed, as directed on package labeling, X 6 day(s), # 21 tab(s), Refills(s) 0, Pharmacy: [facility], 158, cm, 05/12/24 10:25:00 EDT, Height/Length Dosing, 52.3, kg, 05/12/24 10:25:00 EDT, Weight Dosing [facility] External Ambulatory Referral 2. Non-smoker (Z78.9: Other specified health status) continue not smoking Ordered: meloxicam, 15 mg = 1 tab(s), Oral, Daily, # 30 tab(s), Refills(s) 0, Pharmacy: [facility], 158, cm, 05/12/24 10:25:00 EDT, Height/Length Dosing, 52.3, kg, 05/12/24 10:25:00 EDT, Weight Dosing methylPREDNISolone, = 1 packet(s), Oral, As Directed, as directed on package labeling, X 6 day(s), # 21 tab(s), Refills(s) 0, Pharmacy: [facility], 158, cm, 05/12/24 10:25:00 EDT, Height/Length Dosing, 52.3, kg, 05/12/24 10:25:00 EDT, Weight Dosing Body Mass Index (BMI) documented 3008F Current tobacco non-user 1036F Depression Screening Negative 3352F [facility] External Ambulatory Referral Influenza immunization status assessed 1030F Medication list documented in medical record 1159F Most recent diastolic blood pressure <80 mm Hg 3078F Patient screen for fall risk: no falls in last year or 1 fall with no injury in last year 1101F Review of all meds by a prescribing practitioner or clinical pharmacist documented in EHR 1160F Systolic BP <130 mm Hg (Most Recent) 3074F 3. BMI 20.0-20.9, adult (Z68.20: Body mass index [BMI] 20.0-20.9, adult) BMI education given Ordered: meloxicam, 15 mg = 1 tab(s), Oral, Daily, # 30 tab(s), Refills(s) 0, Pharmacy: [facility], 158, cm, 05/12/24 10:25:00 EDT, Height/Length Dosing, 52.3, kg, 05/12/24 10:25:00 EDT, Weight Dosing methylPREDNISolone, = 1 packet(s), Oral, As Directed, as directed on package labeling, X 6 day(s), # 21 tab(s), Refills(s) 0, Pharmacy: [facility], 158, cm, 05/12/24 10:25:00 EDT, Height/Length Dosing, 52.3, kg, 05/12/24 10:25:00 EDT, Weight Dosing Body Mass Index (BMI) documented 3008F Current tobacco non-user 1036F Depression Screening Negative 3352F [facility] External Ambulatory Referral Influenza immunization status assessed 1030F Medication list documented in medical record 1159F Most recent diastolic blood pressure <80 mm Hg 3078F Patient screen for fall risk: no falls in last year or 1 fall with no injury in last year 1101F Review of all meds by a prescribing practitioner or clinical pharmacist documented in EHR 1160F Systolic BP <130 mm Hg (Most Recent) 3074F Follow-up No qualifying data available Problem List/Past Medical History Ongoing Acute bronchitis Acute frontal sinusitis Anxiety disorder Breast cancer screening by mammogram Cerumen impaction Dupuytrens contracture Fluid level behind tympanic membrane of both ears Foot pain, right Gastritis History of non-ST elevation myocardial infarction (NSTEMI) Hospital discharge follow-up Ingrown right big toenail Lower extremity neuropathy Onychomycosis Osteoarthritis of lumbosacral spine Radiculopathy Right elbow pain Sore throat Spondylosis Syncope Trigger ring finger of right hand Wellness examination Historical NSTEMI (non-ST elevated myocardial infarction) Procedure/Surgical History Appendectomy, Cholecystecto (more content not included)... Normal [facility] Comment on above: Result Comment: Elec tronically Signed By: Millie Florentino\.br\Date and Time Signed: 05/12/24 10:43 EDT Follow-Upon 04-21-2024 Follow-Up [id number] Jess Bacon 1955 F Date Provider Department Center 04/21/2024 [id number] POLO CARD [facility] No family history on file Level of Service:32396 IN OFFICE/OUTPATIENT ESTABLISHED LOW MDM 20 MIN Reason for Visit and Comments: Follow-up [457952] - [facility] Follow up Concerns: No further cardiac concerns/symptoms. Normal [facility] Population Health 04-13-20 [facility] Population Health Case Information Case Priority: None Programs: -- Referral Source: Talent Buyer Referral Reason: Care coordination Case Type: Transition Care Management Risk Score: -- Case Status: Enrolled (March 31, 2024) Date Assigned: March 31, 2024 Assigned By: Michael Murray Date Enrolled: March 31, 2024 Assigned Primary Personnel: Michael Murray Assigned Secondary Personnel: -- Case Physician: Luisito Roth MD Problems Ongoing Acute bronchitis Acute frontal sinusitis Anxiety disorder Breast cancer screening by mammogram Cerumen impaction Dupuytrens contracture Fluid level behind tympanic membrane of both ears Gastritis Hospital discharge follow-up Ingrown right big toenail Lower extremity neuropathy NSTEMI (non-ST elevated myocardial infarction) Onychomycosis Osteoarthritis of lumbosacral spine Radiculopathy Right elbow pain Sore throat Spondylosis Syncope Trigger finger of right hand Trigger ring finger of right hand Wellness examination Historical No qualifying data Procedure/Surgical History Appendectomy, Cholecystectomy, Colonoscopy, D (dilation) and C (curettage) of uterus, Partial hysterectomy. Home Medications aspirin, 81 mg, Oral, Daily Compression stockings, See Instructions Debrox, See Instructions MiraLax, 17 gm, Oral, Daily oxybutynin 10 mg ER Tab, See Instructions Vitamin D3 2000 intl units oral Tab, 50 mcg, Oral, Daily Allergies No Known Medication Allergies Social History Alcohol - Denies Alcohol Use, 11/30/2022 Household alcohol concerns: No., 04/23/2023 Substance Abuse - Denies Substance Abuse, 11/30/2022 Household substance abuse concerns: No., 11/30/2022 Tobacco - Denies Tobacco Use, 11/30/2022 Never (less than 100 in lifetime) Tobacco Use:. Never Smokeless Tobacco Use:. Household tobacco concerns: No., 04/06/2024 Family History Emphysema: Father. Schizoaffective disorder: Mother. Screenings and Assessments 03/31/24 09:55:00 Result Name Value Comment Phone Call Monitoring Consent Agreed to continue call Phone Verification Patient Information Full name, street address and date of verified CM Program Enrollment Provides verbal consent for enrollment Goals and Interventions Care Plan Progress Note TCM#2- Spoke with patient states she is 'good.' Patient states 'I'm' having no problems.' Patient denies CP, SOB, lightheadedness/dizzi ness. Patient is sleeping good. States she is eating and drinking good. Denies any bowel issues. Patient notes oxybutynin is working because she has not had any bladder spams. She is requesting a refills on RX with refills (CN to propose to PCP upon return). Patient just filled RX but has been having to call monthly for refill. Patient has cardio follow up tomorrow at [facility] with [facility]. Patient denies any further questions or concerns. Communication Events Date: April 13, 2024 Method: Phone call Type: Outbound Duration (min): 4 Outcome: Case discussion Contact Type: educational technology coordinator Contact Name: Michael Murray Notes: TCM#2- see tcm note. Created By: Michael Murray Date: March 31, 2024 Method: Phone call Type: Outbound Duration (min): 15 Outcome: Case discussion Contact Type: educational technology coordinator Contact Name: Michael Murray Notes: TCM#1- see tcm note. Created By: iMchael Murray [facility] Ambulatory Visit Summaryon 0 04-06-2024 Ambulatory Visit Summary Ambulatory Visit Summary JESS BACON :1955 Visit Date:04/06/2024 Ambulatory Visit Instructions Your Diagnosis Hospital discharge follow-up Gastritis NSTEMI (non-ST elevated myocardial infarction) Nonsmoker Your Care Team Attending Physician - Luisito Roth MD Primary Care Physician - Millie Florentino This Is Your Medications List Contact prescribing physician if questions or concerns Misc Prescription (Compression stockings) aspirin carbamide peroxide otic (Debrox) cholecalciferol (Vitamin D3 2000 intl units oral Tab) oxybutynin (oxybutynin 10 mg ER Tab) polyethylene glycol 3350 (MiraLax) Procedures Performed Appendectomy, Cholecystectomy, Colonoscopy, D (dilation) and C (curettage) of uterus, Partial hysterectomy. Discharge Vitals Temperature (Temporal Artery) 37.7 ?C Heart Rate (Peripheral) 74 Respiratory Rate 16 Blood Pressure 120/78 Height 158 cm Height 62 in Weight 54.1 kg Weight 119.02 lb BMI 21.67 What to do next Scheduled Follow-Up Appointments Wednesday 3:00 PM EDT Where: [address] [address]23 1:00 PM EDT Where: [address] [address]- Medications What How Much When Why Instructions Unchanged aspirin 81 Milligram By Mouth Every day Contact prescribing physician if questions or concerns Unchanged carbamide peroxide otic (Debrox) See instructions 5 drop(s) Contact prescribing physician if questions or concerns Unchanged cholecalciferol (Vitamin D3 2000 intl units oral Tab) 50 Microgram By Mouth Every day Contact prescribing physician if questions or concerns Unchanged Misc Prescription (Compression stockings) See instructions BMI 22.0-22.9, adult Non-smoker wear stocking when on your feet > 8 hours per day Contact prescribing physician if questions or concerns Unchanged oxybutynin (oxybutynin 10 mg ER Tab) 1 Tablets By Mouth Every day Contact prescribing physician if questions or concerns Unchanged polyethylene glycol 3350 (MiraLax) 17 Gram By Mouth Every day Contact prescribing physician if questions or concerns Allergies No Known Medication Allergies Problems Ongoing - Any problem that you are currently receiving treatment for. Acute bronchitis Acute frontal sinusitis Anxiety disorder Breast cancer screening by mammogram Cerumen impaction Dupuytrens contracture Fluid level behind tympanic membrane of both ears Gastritis Hospital discharge follow-up Ingrown right big toenail Lower extremity neuropathy NSTEMI (non-ST elevated myocardial infarction) Onychomycosis Osteoarthritis of lumbosacral spine Radiculopathy Right elbow pain Sore throat Spondylosis Syncope Trigger finger of right hand Trigger ring finger of right hand Wellness examination Patient Survey You may receive a survey via text or e-mail asking about your office visit. Please share your experience with us by completing your survey. We appreciate your feedback and thank you for choosing us for your care. Education Materials Gastritis, Adult Gastritis is inflammation of the stomach. There are two kinds of gastritis: ? Acute gastritis. This kind develops suddenly. ? Chronic gastritis. This kind is much more common. It develops slowly and lasts for a long time. Gastritis happens when the lining of the stomach becomes weak or gets damaged. Without treatment, gastritis can lead to stomach bleeding and ulcers. What are the causes? This condition may be caused by: ? An infection. ? Drinking too much alcohol. ? Certain medicines. These include steroids, antibiotics, and some vhnq-ryz-onkzgzq medicines, such as aspirin or ibuprofen. ? Having too much acid in the stomach. ? Having a disease of the stomach. Other causes may include: ? An allergic reaction. ? Some cancer treatments (radiation). ? Smoking cigarettes or the use of products that contain nicotine or tobacco. In some cases, the cause of this condition is not known. What increases the risk? ? Having a disease of the intestines. ? Having a disease in which the body's immune system attacks the body (autoimmune disease), such as Crohn's disease. ? Using aspirin or ibuprofen and other NSAIDs to treat other conditions, such as heart disease or chronic pain. ? Stress. What are the signs or symptoms? Symptoms of this condition include: ? Pain or a burning sensation in the upper abdomen. ? Nausea. ? Vomiting. ? An uncomfortable feeling of fullness after eating. ? Weight loss. ? Bad breath. ? Blood in your vomit or stool (feces). In some cases, there are no symptoms. How is this diagnosed? This condition may be diagnosed based on your medical histor (more content not included)... Normal [facility] Family Medicine Office/Clini c Noteon 04-06-2024 Family Medicine Office/Clinic Note Family Medicine Office/Clinic Note HPI Staff Jess is a 68 year old female presenting for [facility] hospital follow up Patient of Millie Gonzalez, no open hours on Millie's schedule and she had to have this f/u Brought log of bp readings with her TCM: Hospital: [facility] Admission date: 03/25/24 Discharge date: 03/30/24 Symptoms the patient presented with: abd pain, N&V, diarrhea Dx non ST PA, type II demand ischemia, GE, overactive bladder Current concerns: feeling okay no concerns. Discharge paperwork shows metoprolol but never got a rx for it History of Present Illness Here for hospital follow up. - ER for N/V and Gastritis - Found to have an NSTEMI type 2. - Improved and discharged home. Review of Systems PHQ Score Initial Depression Screen Score: 1 SCORE Physical Exam Vitals & Measurements T: 37.7 ?C(Temporal Artery) HR: 74(Peripheral) RR: 16 BP: 120/78 SpO2: 97% HT: 62 in HT: 158 cm WT: 54.1 kg WT: 119.02 lb BMI: 21.67 General: alert, no acute distress ENMT: oral mucosa moist, Cardiovascular: regular rate and rhythm, normal peripheral perfusion Respiratory: Lungs CTA, respirations non labored Extremities: no deformity, no trauma Neurological: oriented x 4, LOC appropriate for age, CN II-XII intact, motor strength equal & normal bilaterally, speech normal Abdomen: Soft, Nontender, Non-distended, + BS Assessment/Plan 1. Hospital discharge follow-up (Z09: Encounter for follow-up examination after completed treatment for conditions other than malignant neoplasm) Review TCM. Discharge summary reviewed. No issues at this time. Patient follows up with cardiology next week. Ordered: Body Mass Index (BMI) documented 3008F Current tobacco non-user 1036F Depression Screening Negative 3352F Most recent diastolic blood pressure <80 mm Hg 3078F Patient screen for fall risk: no falls in last year or 1 fall with no injury in last year 1101F Systolic BP <130 mm Hg (Most Recent) 3074F 2. Gastritis (K29.70: Gastritis, unspecified, without bleeding) Resolved at this time. Ordered: Body Mass Index (BMI) documented 3008F Current tobacco non-user 1036F Depression Screening Negative 3352F Most recent diastolic blood pressure <80 mm Hg 3078F Patient screen for fall risk: no falls in last year or 1 fall with no injury in last year 1101F Systolic BP <130 mm Hg (Most Recent) 3074F 3. NSTEMI (non-ST elevated myocardial infarction) (I21.4: Non-ST elevation (NSTEMI) myocardial infarction) Will hold beta-raoul at this time given an NSTEMI type II. Patient is a follow-up with cardiology. No chest pain at this time. Recommend stress test. Ordered: Body Mass Index (BMI) documented 3008F Current tobacco non-user 1036F Depression Screening Negative 3352F Most recent diastolic blood pressure <80 mm Hg 3078F Patient screen for fall risk: no falls in last year or 1 fall with no injury in last year 1101F Systolic BP <130 mm Hg (Most Recent) 3074F 4. Nonsmoker (Z78.9: Other specified health status) Please continue not to smoke. Ordered: Body Mass Index (BMI) documented 3008F Current tobacco non-user 1036F Depression Screening Negative 3352F Most recent diastolic blood pressure <80 mm Hg 3078F Patient screen for fall risk: no falls in last year or 1 fall with no injury in last year 1101F Systolic BP <130 mm Hg (Most Recent) 3074F Follow-up No qualifying data available Patient Education Gastritis, Adult Problem List/Past Medical History Ongoing Acute bronchitis Acute frontal sinusitis Anxiety disorder Breast cancer screening by mammogram Cerumen impaction Dupuytrens contracture Fluid level behind tympanic membrane of both ears Gastritis Hospital discharge follow-up Ingrown right big toenail Lower extremity neuropathy NSTEMI (non-ST elevated myocardial infarction) Onychomycosis Osteoarthritis of lumbosacral spine Radiculopathy Right elbow pain Sore throat Spondylosis Syncope Trigger finger of right hand Trigger ring finger of right hand Wellness examination Historical No qualifying data Procedure/Surgical History Appendectomy, Cholecystectomy, Colonoscopy, D (dilation) and C (curettage) of uterus, Partial hysterectomy. Medications aspirin, 81 mg, Oral, Daily Compression stockings, See Instructions Debrox, See Instructions MiraLax, 17 gm, Oral, Daily oxybutynin 10 mg ER Tab, 10 mg= 1 tab(s), Oral, Daily Vitamin D3 2000 intl units oral Tab, 50 mcg, Oral, Daily Allergies No Known Medication Allergies Social History Alcohol - Denies Alcohol Use, 11/30/2022 Household alcohol concerns: No., 04/23/2023 Substance Abuse - Denies Substance Abuse, 11/30/2022 Household substance abuse concerns: No., 11/30/2022 Tobacco - Denies Tobacco Use, 11/30/2022 Never (less than 100 in lifetime) Tobacco Use:. Never Smokeless Tobacco Use:. Household tobacco concerns: No., 04/06/2024 Family History Emphysema: Father. Schizoaffective disorder (more content not included)... Normal [facility] Comment on above: Result Comment: Elec tronically Signed By: Luisito Roth MD\.br\Date and Time Signed: 04/06/24 14:53 EDT 36on 04-04-2024 36 Janitor And Cleaner spoke with patient regarding a [facility] hospital follow up appointment for abd pain and nausea and vomiting. Patient stated she would like to follow up with her PCP. Normal [facility] 36on 03-31-2024 36 Post Discharge Call Good morning, I am Geovanna Ram RN a lead nurse from [facility]. I am calling you to follow up on your stay with us and make sure all of your questions have been answered. You will be receiving a survey either electronic or via mail and we always aim to receive 9???s and 10???s. If there is any reason you feel as though you cannot give us these scores please indicate that now. Patient did not answer- left message at 1132 on 03/31/2024 Patient Name Jess Bacon Date 03/31/24 [facility] Population [facility] 03-31-20 [facility] Case Information Case Priority: None Programs: -- Referral Source: Talent Buyer Referral Reason: Care coordination Case Type: Transition Care Management Risk Score: -- Case Status: Enrolled (March 31, 2024) Date Assigned: March 31, 2024 Assigned By: Michael Murray Date Enrolled: March 31, 2024 Assigned Primary Personnel: Michael Murray Assigned Secondary Personnel: -- Case Physician: Luiisto Roth MD Problems Ongoing Acute bronchitis Acute frontal sinusitis Anxiety disorder Breast cancer screening by mammogram Cerumen impaction Dupuytrens contracture Fluid level behind tympanic membrane of both ears Ingrown right big toenail Lower extremity neuropathy Onychomycosis Osteoarthritis of lumbosacral spine Radiculopathy Right elbow pain Sore throat Spondylosis Syncope Trigger finger of right hand Trigger ring finger of right hand Wellness examination Historical No qualifying data Procedure/Surgical History Appendectomy, Cholecystectomy, Colonoscopy, D (dilation) and C (curettage) of uterus, Partial hysterectomy. Home Medications aspirin, 81 mg, Oral, Daily Compression stockings, See Instructions Debrox, See Instructions MiraLax, 17 gm, Oral, Daily oxybutynin 10 mg ER Tab, 10 mg= 1 tab(s), Oral, Daily Vitamin D3 2000 intl units oral Tab, 50 mcg, Oral, Daily Allergies No Known Medication Allergies Social History Alcohol - Denies Alcohol Use, 11/30/2022 Household alcohol concerns: No., 04/23/2023 Substance Abuse - Denies Substance Abuse, 11/30/2022 Household substance abuse concerns: No., 11/30/2022 Tobacco - Denies Tobacco Use, 11/30/2022 Never (less than 100 in lifetime) Tobacco Use:. Never Smokeless Tobacco Use:. Household tobacco concerns: No., 03/17/2024 Family History Emphysema: Father. Schizoaffective disorder: Mother. Screenings and Assessments 03/31/24 09:55:00 Result Name Value Comment Phone Call Monitoring Consent Agreed to continue call Phone Verification Patient Information Full name, street address and date of verified CM Program Enrollment Provides verbal consent for enrollment Goals and Interventions Care Plan Progress Note Admit Date: [facility] Date of Discharge: 03/30/24 Follow-up appointment scheduled? yes, Dr. Roth [facility] 04/06/24 at 1500 Did you understand your discharge instructions? yes Are you able to follow them? yes Did you receive new medications? per pt was instructed to take ASA 81 mg QD OTC Have you filled the Rx's? n/a Are you taking them as prescribed? yes Are you having difficulty eating or swallowing your pills? no Are you having any stomach upset, diarrhea or constipation? upset, 'just feels like I have to poop' How are you sleeping? good Are you having any pain? no Do you have everything you need at home to care for yourself? yes Do you have Home Health? no Called patient for initial Transitional Care Management Program call. Readmission risk is unavailable. Reviewed d/c instructions and dx of NSTEMI, type II demand ischemia, gastroenteritis, overactive bladder. Patient was transferred from [facility] to [facility] on 03/25/24, she presented with abdominal cramping, elevated trops. Patient had echo and stress test preformed 03/27-03/28 followed by heart cath on 03/29/24. Patient reports she was instructed to take ASA 81 mg daily, no other medication changes were made. Medications reconciled with patient list, EHR, and d/c summary. Reviewed purpose and side effects of ASA with patient. Patient states she is feeling 'good.' Patient denies any lightheadedness/dizzi ness. Denies any CP or SOB. Patient reports left radial access site has some bruising. Denies any pain, discomfort, or lump to LRA site. Patient denies any N/V. Reports stomach is 'upset, feels like I have to poop.' Patient had BM this am, 'mushy.' Patient states she is eating well and drinking plenty of fluids. We discussed trying a bland diet for the next week or so and avoiding foods like whole grain, nuts, seeds, raw fruits. Patient denies any urinary issues. States she has been taking oxybutynin for a few weeks now and it seems to be working, no spasms reported. Patient returns to work on Wednesday04/03/24. 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 Patient of Ronald Gonzalez scheduled for TCM follow up with Dr. Roth d/t scheduling conflicts. 04/06/24 at 1500 and to bring medications, cardio f/u 04/14/24, Dr. Polo [facility]. CN explained TCM program and gave CN contact number. Communication Events Date: March 31, 2024 Method: Phone call Type: Outbound Duration (min): 15 Outcome: Case discussion Contact Type: educational technology coordinator Contact Name: Michael Murray Notes: TCM#1- see tcm note. Created By: Michael Murray [facility] Telephoneon 03-31-2024 Telephone [phone] Jess Bacon 1955 F Date Provider Department Center 03/31/2024 1600-GEOVANNA RAM [facility] No family history on file Reason for Visit and Comments: Hospital Follow-up [832] Normal [facility] 30on 03-30-2024 30 The patient is Moderately Stable - Low risk of patient condition declining or worsening The patient's goals for the shift include discharge The clinical goals for the shift include stable vs Problem: Neurosensory - Adult Goal: Absence of seizures Outcome: Progressing Flowsheets (Taken 03/30/2024 0805) Absence of seizures: Monitor for seizure activity. If seizure occurs, document type and location of movements and any associated apnea If seizure occurs, turn head to side and suction secretions as needed Administer anticonvulsants as ordered Support airway/breathing, administer oxygen as needed Problem: Neurosensory - Adult Goal: Achieves stable or improved neurological status Outcome: Progressing Flowsheets (Taken 03/30/2024804) Achieves stable or improved neurological status: Assess for and report changes in neurological status Initiate measures to prevent increased intracranial pressure Monitor temperature, glucose, and sodium. Initiate appropriate interventions as ordered Maintain blood pressure and fluid volume within ordered parameters to optimize cerebral perfusion and minimize risk of hemorrhage Goal: Absence of seizures Outcome: Progressing Flowsheets (Taken 03/30/2024804) Absence of seizures: Monitor for seizure activity. If seizure occurs, document type and location of movements and any associated apnea If seizure occurs, turn head to side and suction secretions as needed Administer anticonvulsants as ordered Support airway/breathing, administer oxygen as needed Goal: Remains free of injury related to seizures activity Outcome: Progressing Flowsheets (Taken 03/30/2024804) Remains free of injury related to seizure activity: Maintain airway, patient safety and administer oxygen as ordered Monitor patient for seizure activity, document and report duration and description of seizure to Licensed Independent Practitioner If seizure occurs, turn patient to side and suction secretions as needed Seizure pads on all 4 side rails Instruct patient/family to notify RN of any seizure activity Instruct patient/family to call for assistance with activity based on assessment Reorient patient post seizure Goal: Achieves maximal functionality and self care Outcome: Progressing Flowsheets (Taken 03/30/2024804) Achieves maximal functionality and self care: Monitor swallowing and airway patency with patient fatigue and changes in neurological status Encourage and assist patient to increase activity and self care with guidance from physical therapy/occupational therapy Encourage visually impaired, hearing impaired and aphasic patients to use assistive/communicati on devices Problem: Neurosensory - Adult Goal: Remains free of injury related to seizures activity Outcome: Progressing Flowsheets (Taken 03/30/2024804) Remains free of injury related to seizure activity: Maintain airway, patient safety and administer oxygen as ordered Monitor patient for seizure activity, document and report duration and description of seizure to Licensed Independent Practitioner If seizure occurs, turn patient to side and suction secretions as needed Seizure pads on all 4 side rails Instruct patient/family to notify RN of any seizure activity Instruct patient/family to call for assistance with activity based on assessment Reorient patient post seizure Problem: Neurosensory - Adult Goal: Achieves maximal functionality and self care Outcome: Progressing Flowsheets (Taken 03/30/2024804) Achieves maximal functionality and self care: Monitor swallowing and airway patency with patient fatigue and changes in neurological status Encourage and assist patient to increase activity and self care with guidance from physical therapy/occupational therapy Encourage visually impaired, hearing impaired and aphasic patients to use assistive/communicati on devices Problem: Respiratory - Adult Goal: Achieves optimal ventilation and oxygenation Outcome: Progressing Flowsheets (Taken 03/30/2024804) Achieves optimal ventilation and oxygenation: Assess for changes in respiratory status Assess for changes in mentation and behavior Position to facilitate oxygenation and minimize respiratory effort Initiate smoking cessation protocol as indicated Oxygen supplementation based on oxygen saturation or arterial blood gases Encourage broncho-pulmonary hygiene including cough, deep breathe, incentive spirometry Assess the need for suctioning and aspirate as needed Assess and instruct to report shortness of breath or any respiratory difficulty Respiratory therapy support as indicated Problem: Cardiovascular - Adult Goal: Maintains optimal cardiac output and hemodynamic stability Outcome: Progressing Flowsheets (Taken 03/30/2024804) Maintains optimal cardiac output and hemodynamic stability: Monitor blood pressure and heart rate Monitor urine output and notify Licensed In (more content not included)... Normal [facility] CBCon 03-30-2024 Erythrocyte distribution width (RBC) [Ratio] 13.7 % Normal 11.5-15.0 [facility] Comment on above: Performed By: #### L [id number] ####[facility] ([facility] [place] [address] ERYTHROCYTE MEAN CORPUSCULAR HEMOGLOBIN CONCENTRATION (G/DL) BY AUTOMATED 33.0 g/dL Normal 32.0-35.0 [facility] Comment on above: Performed By: #### L [id number] ####[facility] ([employer])[address] [place] [address] Hematocrit (Bld) [Volume fraction] 42.4 % Normal 36.0-48.0 [facility] Comment on above: Performed By: #### L [id number] ####[facility] ([employer])[address] [place] [address] Hemoglobin (Bld) [Mass/Vol] 14.0 g/dL Normal 12.0-15.0 [facility] Comment on above: Performed By: #### L [id number] ####[facility] ([facility] [place] [id number] MCH (RBC) [Entitic mass] 28.6 pg Normal 27.0-33.0 [facility] Comment on above: Performed By: #### L [id number] ####[facility] ([facility] [place] [id number] MCV (RBC) [Entitic vol] 86.7 fL Normal 82.0-98.0 [facility] Comment on above: Performed By: #### L [id number] ####[facility] ([facility] [place] [id number] PLATELETS (10*3/UL) IN BLOOD AUTOMATED COUNT 188 10*3/uL Normal 150-400 [facility] Comment on above: Performed By: #### L [id number] ####[facility] ([facility] [place] [id number] RBC (Bld) [#/Vol] 4.89 10*6/uL Normal 3.80-5.00 [facility] Comment on above: Performed By: #### L [id number] ####[facility] ([facility])[address] [place] [id number] WBC (Bld) [#/Vol] 6.22 10*3/uL Normal 4.00-10.60 [facility] Comment on above: Performed By: #### L [id number] ####[facility] ([facility])[address] [place] [address] COMPREHENSIVE METABOLIC PANE Mynor 03-30-2024 Albumin [Mass/Vol] 3.8 g/dL Normal 3.5-5.7 [facility] Comment on above: Performed By: #### L [id number] ####[facility] ([facility])[address] [place] [id number] ALP [Catalytic activity/Vol] 36 U/L Normal 34-104 [facility] Comment on above: Performed By: #### L [id number] ####[facility] ([facility])[address] [place] [address] ALT [Catalytic activity/Vol] 45 U/L Normal 7-52 [facility] Comment on above: Performed By: #### L [id number] ####[facility] ([facility])[address] [place] [address] Anion gap [Moles/Vol] 9 mmol/L Normal 7-20 [facility] Comment on above: Performed By: #### L [id number] ####[facility] ([facility] [place] [address] AST [Catalytic activity/Vol] 49 U/L High 13-39 [facility] Comment on above: Performed By: #### L [id number] ####[facility] ([facility] [place] [address] Bilirubin [Mass/Vol] 0.6 mg/dL Normal 0.3-1.0 [facility] Comment on above: Performed By: #### L [id number] ####[facility] ([facility])[address] [place] [address] Calcium [Mass/Vol] 9.0 mg/dL Normal 8.6-10.3 [facility] Comment on above: Performed By: #### L [id number] ####[facility] ([facility])[address] [place] [address] Chloride [Moles/Vol] 103 mmol/L Normal 98-107 [facility] Comment on above: Performed By: #### L [id number] ####[facility] ([facility])[address] [place] [address] CO2 [Moles/Vol] 30 mmol/L Normal 21-31 [facility] Comment on above: Performed By: #### L [id number] ####[facility] ([facility])[address] [place] [address] Creatinine [Mass/Vol] 0.65 mg/dL Normal 0.60-1.20 [facility] Comment on above: Performed By: #### L [id number] ####[facility] ([facility] [place] [address] GLOMERULAR FILTRATION RATE ML/MIN/1.73 SQ M.PREDICTED 95.8 mL/min/1.73m*2 Normal >60.0 [facility] Comment on above: Result Comment: The [facility]???s estimated glomerular filtration rate (eGFR) will no longer include consideration of race in its calculation. The National Kidney Foundation???s eGFR Task Force developed new recommendations for the estimation of the glomerular filtration rate in the [place] They recommend immediate implementation of the new equation refit without the race variable in all laboratories because the calculation does not include race. In addition to not including race in the calculation and reporting, it included diversity in its development, and has acceptable performance characteristics and potential consequences that do not disproportionately affect any one group of individuals. Performed By: #### L [id number] ####[facility] ([facility] [place] [address] Glucose [Mass/Vol] 91 mg/dL Normal 70-100 [facility] Comment on above: Performed By: #### L [id number] ####[facility] ([facility] [place] [address] Potassium [Moles/Vol] 4.3 mmol/L Normal 3.5-5.1 [facility] Comment on above: Performed By: #### L [id number] ####[facility] ([facility] [place] [address] Protein [Mass/Vol] 6.1 g/dL Normal 6.0-8.3 [facility] Comment on above: Performed By: #### L [id number] ####[facility] ([facility] [place] [address] Sodium [Moles/Vol] 138 mmol/L Normal 136-145 [facility] Comment on above: Performed By: #### L [id number] ####[facility] ([facility] [place] [address] Urea nitrogen [Mass/Vol] 18 mg/dL Normal 03-30 [facility] Comment on above: Performed By: #### L [id number] ####[facility] ([facility])[address] [place] [address] UREA NITROGEN/CREATINI NE (MASS RATIO) IN SER/PLAS 27.[address] [facility] Comment on above: Performed By: #### L [id number] ####[facility] ([facility])[address] [place] [address] 30on 03-29-2024 30 Problem: Pain - Adul t Goal: Verbalizes/displays adequate comfort level or baseline comfort level Outcome: Progressing Flowsheets (Taken 03/29/20242326) Verbalizes/displays adequate comfort level or baseline comfort level: Encourage patient to monitor pain and request assistance Assess pain using appropriate pain scale Administer analgesics based on type and severity of pain and evaluate response Implement non-pharmacological measures as appropriate and evaluate response Consider cultural and social influences on pain and pain management Notify Licensed Independent Practitioner if interventions unsuccessful or patient reports new pain Problem: Safety - Adult Goal: Free from fall injury Outcome: Progressing Flowsheets (Taken 03/29/20242326) Free from fall injury: Assess patient frequently for physical needs Identify cognitive and physical deficits and behaviors that affect risk of falls [place] fall precautions as indicated by assessment Educate patient/family on patient safety, including physical limitations Instruct patient to call for assistance with activity based on assessment Modify environment to reduce risk of injury Consider OT/PT consult to assist with strengthening/mobilit y Problem: Discharge Planning Goal: Discharge to home or other facility with appropriate resources Outcome: Progressing Flowsheets (Taken 03/29/20242326) Discharge to home or other facility with appropriate resources: Arrange for needed discharge resources and transportation as appropriate Arrange for interpreters to assist at discharge as needed Identify barriers to discharge with patient and caregiver Identify discharge learning needs (meds, wound care, etc) Refer to discharge planning if patient needs post-hospital services based on physician order or complex needs related to functional status, cognitive ability or social support system Problem: Chronic Conditions and Co-morbidities Goal: Patient's chronic conditions and co-morbidity symptoms are monitored and maintained or improved Outcome: Progressing Flowsheets (Taken 03/29/20242326) Care Plan - Patient's Chronic Conditions and Co-Morbidity Symptoms are Monitored and Maintained or Improved: Monitor and assess patient's chronic conditions and comorbid symptoms for stability, deterioration, or improvement Collaborate with multidisciplinary team to address chronic and comorbid conditions and prevent exacerbation or deterioration Update acute care plan with appropriate goals if chronic or comorbid symptoms are exacerbated and prevent overall improvement and discharge Normal [facility] 30 Daily Case Managemen t Update Multidisciplinary rounds have been completed. Barriers to Discharge: Pending clinical course and improvement in clinical condition. Patient underwent cardiac catheterization today; pending results and Cardiology recommendations. Discharge plan is home when medically ready. Diet: Dietary Orders (From admission, onward) Start Ordered 03/29/24 1603 Regular Diet Heart Healthy/HTN, CABG,Stroke, (2gNA, low fat, low cholesterol) Diet effective now Question Answer Comment Room Service? Yes Fat restriction: Heart Healthy/HTN, CABG,Stroke, (2gNA, low fat, low cholesterol) 03/29/24 1602 Physician Expected Discharge Date: 03/30/2024 Discharge Delays: PT Six Click Score: 24 OT Six Click Score: 24 PT Recommendations: Home OT Recommendations: Home New Consults: Normal [facility] 30 The patient is Moderately Stable - Low risk of patient condition declining or worsening The patient's goals for the shift include comfort/rest The clinical goals for the shift include stable vital signs Problem: Neurosensory - Adult Goal: Achieves stable or improved neurological status Outcome: Progressing Flowsheets (Taken 03/29/2024 075) Achieves stable or improved neurological status: Assess for and report changes in neurological status Maintain blood pressure and fluid volume within ordered parameters to optimize cerebral perfusion and minimize risk of hemorrhage Initiate measures to prevent increased intracranial pressure Monitor temperature, glucose, and sodium. Initiate appropriate interventions as ordered Goal: Absence of seizures Outcome: Progressing Flowsheets (Taken 03/29/2024 075) Absence of seizures: Monitor for seizure activity. If seizure occurs, document type and location of movements and any associated apnea If seizure occurs, turn head to side and suction secretions as needed Administer anticonvulsants as ordered Support airway/breathing, administer oxygen as needed Goal: Remains free of injury related to seizures activity Outcome: Progressing Flowsheets (Taken 03/29/2024 075) Remains free of injury related to seizure activity: Maintain airway, patient safety and administer oxygen as ordered Monitor patient for seizure activity, document and report duration and description of seizure to Licensed Independent Practitioner If seizure occurs, turn patient to side and suction secretions as needed Reorient patient post seizure Seizure pads on all 4 side rails Instruct patient/family to call for assistance with activity based on assessment Instruct patient/family to notify RN of any seizure activity Goal: Achieves maximal functionality and self care Outcome: Progressing Flowsheets (Taken 03/29/2024753) Achieves maximal functionality and self care: Monitor swallowing and airway patency with patient fatigue and changes in neurological status Encourage and assist patient to increase activity and self care with guidance from physical therapy/occupational therapy Encourage visually impaired, hearing impaired and aphasic patients to use assistive/communicati on devices Problem: Respiratory - Adult Goal: Achieves optimal ventilation and oxygenation Outcome: Progressing Flowsheets (Taken 03/29/2024753) Achieves optimal ventilation and oxygenation: Assess for changes in respiratory status Assess for changes in mentation and behavior Position to facilitate oxygenation and minimize respiratory effort Oxygen supplementation based on oxygen saturation or arterial blood gases Initiate smoking cessation protocol as indicated Assess the need for suctioning and aspirate as needed Assess and instruct to report shortness of breath or any respiratory difficulty Respiratory therapy support as indicated Encourage broncho-pulmonary hygiene including cough, deep breathe, incentive spirometry Problem: Cardiovascular - Adult Goal: Maintains optimal cardiac output and hemodynamic stability Outcome: Progressing Flowsheets (Taken 03/29/2024753) Maintains optimal cardiac output and hemodynamic stability: Monitor blood pressure and heart rate Monitor urine output and notify Licensed Independent Practitioner for values outside of normal range Assess for signs of decreased cardiac output Administer fluid and/or volume expanders as ordered Administer vasoactive medications as ordered Goal: Absence of cardiac dysrhythmias or at baseline Outcome: Progressing Flowsheets (Taken 03/29/2024753) Absence of cardiac dysrhythmias or at baseline: Monitor cardiac rate and rhythm Assess for signs of decreased cardiac output Administer antiarrhythmia medication and electrolyte replacement as ordered Problem: Skin/Tissue Integrity - Adult Goal: Skin integrity remains intact Outcome: Progressing Flowsheets (Taken 03/29/2024753) Skin integrity remains intact: Monitor for areas of redness and/or skin breakdown Assess vascular access sites hourly Change oxygen saturation probe site as needed If on nasal continuous positive airway pressure, respiratory therapy assesses nares and determine need for appliance change or resting period as needed Goal: Incisions, wounds, or drain sites healing without S/S of infection Outcome: Progressing Flowsheets (Taken 03/29/2024753) Incisions, wounds, or drain sites healing without sign and symptoms of infection: TWICE DAILY: Assess and document skin integrity Goal: Oral mucous membranes remain intact Outcome: Progressing Flowsheets (Taken 03/29/2024753) Oral mucous membranes remain intact: Assess oral mucosa and hygiene practices Implement preventative oral hygiene regimen Implement oral medicated treatments as ordered Problem: Musculoskeletal - Adult Goal: Return mobility to safest level of function Outc (more content not included)... Normal [facility] CBCon 03-29-2024 Erythrocyte distribution width (RBC) [Ratio] 13.6 % Normal 11.5-15.0 [facility] Comment on above: Performed By: #### L [id number] ####[facility] ([facility] [place] [address] ERYTHROCYTE MEAN CORPUSCULAR HEMOGLOBIN CONCENTRATION (G/DL) BY AUTOMATED 32.5 g/dL Normal 32.0-35.0 [facility] Comment on above: Performed By: #### L [id number] ####[facility] ([facility])[address] [place] [address] Hematocrit (Bld) [Volume fraction] 42.8 % Normal 36.0-48.0 [facility] Comment on above: Performed By: #### L [id number] ####[facility] ([facility])[address] [place] [address] Hemoglobin (Bld) [Mass/Vol] 13.9 g/dL Normal 12.0-15.0 [facility] Comment on above: Performed By: #### L [id number] ####[facility] ([facility])[address] [place] [address] MCH (RBC) [Entitic mass] 29.0 pg Normal 27.0-33.0 [facility] Comment on above: Performed By: #### L [id number] ####[facility] ([facility])[address] [place] [address] MCV (RBC) [Entitic vol] 89.4 fL Normal 82.0-98.0 [facility] Comment on above: Performed By: #### L [id number] ####[facility] ([facility] [place] [address] PLATELETS (10*3/UL) IN BLOOD AUTOMATED COUNT 182 10*3/uL Normal 150-400 [facility] Comment on above: Performed By: #### L [id number] ####[facility] ([facility] [place] [address] RBC (Bld) [#/Vol] 4.79 10*6/uL Normal 3.80-5.00 [facility] Comment on above: Performed By: #### L [id number] ####[facility] ([facility] [place] [address] WBC (Bld) [#/Vol] 5.41 10*3/uL Normal 4.00-10.60 [facility] Comment on above: Performed By: #### L [id number] ####[facility] ([facility] [place] [address] COMPREHENSIVE METABOLIC PANE Mynor 03-29-2024 Albumin [Mass/Vol] 3.7 g/dL Normal 3.5-5.7 [facility] Comment on above: Performed By: #### L [id number] ####[facility] ([facility] [place] [address] ALP [Catalytic activity/Vol] 34 U/L Normal 34-104 [facility] Comment on above: Performed By: #### L [id number] ####[facility] ([facility] [place] [address] ALT [Catalytic activity/Vol] 24 U/L Normal 7-52 [facility] Comment on above: Performed By: #### L [id number] ####[facility] ([facility] [place] [address] Anion gap [Moles/Vol] 10 mmol/L Normal 7-20 [facility] Comment on above: Performed By: #### L [id number] ####[facility] ([facility] [place] [address] AST [Catalytic activity/Vol] 31 U/L Normal 13-39 [facility] Comment on above: Performed By: #### L [id number] ####[facility] ([facility] [place] [address] Bilirubin [Mass/Vol] 0.7 mg/dL Normal 0.3-1.0 [facility] Comment on above: Performed By: #### L [id number] ####[facility] ([facility] [place] [address] Calcium [Mass/Vol] 9.1 mg/dL Normal 8.6-10.3 [facility] Comment on above: Performed By: #### L [id number] ####[facility] ([facility] [place] [address] Chloride [Moles/Vol] 105 mmol/L Normal 98-107 [facility] Comment on above: Performed By: #### L [id number] ####[facility] ([facility] [place] [address] CO2 [Moles/Vol] 30 mmol/L Normal 21-31 [facility] Comment on above: Performed By: #### L [id number] ####[facility] ([facility] [place] [address] Creatinine [Mass/Vol] 0.76 mg/dL Normal 0.60-1.20 [facility] Comment on above: Performed By: #### L [id number] ####[facility] ([facility] [place] [address] GLOMERULAR FILTRATION RATE ML/MIN/1.73 SQ M.PREDICTED 85.3 mL/min/1.73m*2 Normal >60.0 [facility] Comment on above: Result Comment: The [facility]???s estimated glomerular filtration rate (eGFR) will no longer include consideration of race in its calculation. The National Kidney Foundation???s eGFR Task Force developed new recommendations for the estimation of the glomerular filtration rate in the [place] They recommend immediate implementation of the new equation refit without the race variable in all laboratories because the calculation does not include race. In addition to not including race in the calculation and reporting, it included diversity in its development, and has acceptable performance characteristics and potential consequences that do not disproportionately affect any one group of individuals. Performed By: #### L [id number] ####[facility] ([facility] [place] [address] Glucose [Mass/Vol] 100 mg/dL Normal 70-[facility] [facility] Comment on above: Performed By: #### L [id number] ####[facility] ([facility] [place] [address] Potassium [Moles/Vol] 4.8 mmol/L Normal 3.5-5.1 [facility] Comment on above: Performed By: #### L [id number] ####[facility] ([facility] [place] [address] Protein [Mass/Vol] 6.0 g/dL Normal 6.0-8.3 [facility] Comment on above: Performed By: #### L [id number] ####[facility] ([facility] [place] [address] Sodium [Moles/Vol] 140 mmol/L Normal 136-145 [facility] Comment on above: Performed By: #### L [id number] ####[facility] ([facility] [place] [address] Urea nitrogen [Mass/Vol] 16 mg/dL Normal 7-25 [facility] Comment on above: Performed By: #### L [id number] ####[facility] ([facility] [place] [address] UREA NITROGEN/CREATINI NE (MASS RATIO) IN SER/PLAS 21.[address] [facility] Comment on above: Performed By: #### L [id number] ####[facility] ([facility] [place] [address] HPon 03-29-2024 HP H&P reviewed. The patient was examined and there are no changes to the H&P. Jess Bacon is a 68 y.o. female with no known past medical history, no medications at home presented to the hospital due to elevated troponin the patient initially went to [facility] due to symptoms of abdominal pain, nausea vomiting diarrhea up to 8 times a day, watery consistency, referred to [facility] for NSTEMI. Lexiscan Myocardial Perfusion Stress Tests is positive at the inferolateral section. Patient will undergo diagnostic CORS. [facility] 30on 03-28-2024 30 The patient is Moderately Stable - Low risk of patient condition declining or worsening The patient's goals for the shift include comfort, rest The clinical goals for the shift include stable vitals, comfort [facility] 30 Daily Case Managemen t Update Multidisciplinary rounds have been completed. Barriers to Discharge: Pending clinical course and improvement in clinical condition. Patient underwent stress test and needs a cardiac catheterization per Recommendations. Discharge plan is home when medically ready. Diet: Dietary Orders (From admission, onward) Start Ordered 03/29/24 0001 Diet NPO Diet effective midnight Comments: No exceptions Question: Reason for NPO: Answer: Operation/Procedure 03/28/24 1329 03/28/24 1337 Regular Diet Heart Healthy/HTN, CABG,Stroke, (2gNA, low fat, low cholesterol) Diet effective now Question Answer Comment Room Service? Yes Fat restriction: Heart Healthy/HTN, CABG,Stroke, (2gNA, low fat, low cholesterol) 03/28/24 1336 Physician Expected Discharge Date: 03/29/2024 Discharge Delays: PT Six Click Score: 24 OT Six Click Score: 24 PT Recommendations: Home OT Recommendations: Home New Consults: [facility] 30 The patient is Moderately Stable - Low risk of patient condition declining or worsening The patient's goals for the shift include stress test The clinical goals for the shift include stable vss Problem: Neurosensory - Adult Goal: Achieves stable or improved neurological status Outcome: Progressing Flowsheets (Taken 03/28/2024 0747) Achieves stable or improved neurological status: Assess for and report changes in neurological status Initiate measures to prevent increased intracranial pressure Maintain blood pressure and fluid volume within ordered parameters to optimize cerebral perfusion and minimize risk of hemorrhage Monitor temperature, glucose, and sodium. Initiate appropriate interventions as ordered Problem: Neurosensory - Adult Goal: Absence of seizures Outcome: Progressing Flowsheets (Taken 03/28/2024746) Absence of seizures: Monitor for seizure activity. If seizure occurs, document type and location of movements and any associated apnea If seizure occurs, turn head to side and suction secretions as needed Administer anticonvulsants as ordered Support airway/breathing, administer oxygen as needed Problem: Neurosensory - Adult Goal: Remains free of injury related to seizures activity Outcome: Progressing Flowsheets (Taken 03/28/2024746) Remains free of injury related to seizure activity: Maintain airway, patient safety and administer oxygen as ordered Monitor patient for seizure activity, document and report duration and description of seizure to Licensed Independent Practitioner If seizure occurs, turn patient to side and suction secretions as needed Reorient patient post seizure Seizure pads on all 4 side rails Instruct patient/family to notify RN of any seizure activity Instruct patient/family to call for assistance with activity based on assessment Problem: Neurosensory - Adult Goal: Achieves maximal functionality and self care Outcome: Progressing Flowsheets (Taken 03/28/2024746) Achieves maximal functionality and self care: Monitor swallowing and airway patency with patient fatigue and changes in neurological status Encourage and assist patient to increase activity and self care with guidance from physical therapy/occupational therapy Encourage visually impaired, hearing impaired and aphasic patients to use assistive/communicati on devices Problem: Respiratory - Adult Goal: Achieves optimal ventilation and oxygenation Outcome: Progressing Flowsheets (Taken 03/28/2024746) Achieves optimal ventilation and oxygenation: Assess for changes in respiratory status Assess for changes in mentation and behavior Position to facilitate oxygenation and minimize respiratory effort Oxygen supplementation based on oxygen saturation or arterial blood gases Initiate smoking cessation protocol as indicated Encourage broncho-pulmonary hygiene including cough, deep breathe, incentive spirometry Assess the need for suctioning and aspirate as needed Assess and instruct to report shortness of breath or any respiratory difficulty Respiratory therapy support as indicated Normal [facility] CBCon 03-28-2024 Erythrocyte distribution width (RBC) [Ratio] 13.7 % Normal 11.5-15.0 [facility] Comment on above: Performed By: #### L [id number] ####[facility] ([facility])[address] [place] [address] ERYTHROCYTE MEAN CORPUSCULAR HEMOGLOBIN CONCENTRATION (G/DL) BY AUTOMATED 32.3 g/dL Normal 32.0-35.0 [facility] Comment on above: Performed By: #### L [id number] ####[facility] ([facility] [place] [id number] Hematocrit (Bld) [Volume fraction] 40.3 % Normal 36.0-48.0 [facility] Comment on above: Performed By: #### L [id number] ####[facility] ([facility] [place] [id number] Hemoglobin (Bld) [Mass/Vol] 13.0 g/dL Normal 12.0-15.0 [facility] Comment on above: Performed By: #### L [id number] ####[facility] ([facility] [place] [id number] MCH (RBC) [Entitic mass] 28.8 pg Normal 27.0-33.0 [facility] Comment on above: Performed By: #### L [id number] ####[facility] ([facility] [place] [id number] MCV (RBC) [Entitic vol] 89.2 fL Normal 82.0-98.0 [facility] Comment on above: Performed By: #### L [id number] ####[facility] ([facility] [place] [id number] PLATELETS (10*3/UL) IN BLOOD AUTOMATED COUNT 179 10*3/uL Normal 150-400 [facility] Comment on above: Performed By: #### L [id number] ####[facility] ([facility] [place] [id number] RBC (Bld) [#/Vol] 4.52 10*6/uL Normal 3.80-5.00 [facility] Comment on above: Performed By: #### L [id number] ####[facility] ([facility] [place] [id number] WBC (Bld) [#/Vol] 6.25 10*3/uL Normal 4.00-10.60 [facility] Comment on above: Performed By: #### L [id number] ####[facility] ([facility])[address] [place] [address] COMPREHENSIVE METABOLIC PANE Mynor 03-28-2024 Albumin [Mass/Vol] 3.5 g/dL Normal 3.5-5.7 [facility] Comment on above: Performed By: #### L [id number] ####[facility] [place] [address] ALP [Catalytic activity/Vol] 32 U/L Low 34-104 [facility] Comment on above: Performed By: #### L [id number] ####[facility] [place] [address] ALT [Catalytic activity/Vol] 13 U/L Normal 7-52 [facility] Comment on above: Performed By: #### L [id number] ####[facility] [place] [address] Anion gap [Moles/Vol] 9 mmol/L Normal 7-20 [facility] Comment on above: Performed By: #### L [id number] ####[facility] [place] [address] AST [Catalytic activity/Vol] 16 U/L Normal 13-39 [facility] Comment on above: Performed By: #### L [id number] ####[facility] [place] [address] Bilirubin [Mass/Vol] 0.6 mg/dL Normal 0.3-1.0 [facility] Comment on above: Performed By: #### L [id number] ####[facility] [place] [address] Calcium [Mass/Vol] 8.7 mg/dL Normal 8.6-10.3 [facility] Comment on above: Performed By: #### L [id number] ####[facility] ([facility])[address] [place] [address] Chloride [Moles/Vol] 106 mmol/L Normal 98-107 [facility] Comment on above: Performed By: #### L [id number] ####[facility])[address] [place] [address] CO2 [Moles/Vol] 29 mmol/L Normal 21-31 [facility] Comment on above: Performed By: #### L [id number] ####[facility] [place] [address] Creatinine [Mass/Vol] 0.71 mg/dL Normal 0.60-1.20 [facility] Comment on above: Performed By: #### L [id number] ####[facility] [place] [address] GLOMERULAR FILTRATION RATE ML/MIN/1.73 SQ M.PREDICTED 92.6 mL/min/1.73m*2 Normal >60.0 [facility] Comment on above: Result Comment: The [facility]???s estimated glomerular filtration rate (eGFR) will no longer include consideration of race in its calculation. The National Kidney Foundation???s eGFR Task Force developed new recommendations for the estimation of the glomerular filtration rate in the [place] They recommend immediate implementation of the new equation refit without the race variable in all laboratories because the calculation does not include race. In addition to not including race in the calculation and reporting, it included diversity in its development, and has acceptable performance characteristics and potential consequences that do not disproportionately affect any one group of individuals. Performed By: #### L [id number] ####[facility] [place] [address] Glucose [Mass/Vol] 92 mg/dL Normal 70-100 [facility] Comment on above: Performed By: #### L [id number] ####[facility] [place] [address] Potassium [Moles/Vol] 4.3 mmol/L Normal 3.5-5.1 [facility] Comment on above: Performed By: #### L [id number] ####[facility] ([facility])[address] [place] [address] Protein [Mass/Vol] 5.6 g/dL Low 6.0-8.3 [facility] Comment on above: Performed By: #### L [id number] ####[facility] ([facility] [place] [address] Sodium [Moles/Vol] 140 mmol/L Normal 136-145 [facility] Comment on above: Performed By: #### L [id number] ####[facility] ([facility] [place] [address] Urea nitrogen [Mass/Vol] 17 mg/dL Normal 7-25 [facility] Comment on above: Performed By: #### L [id number] ####[facility] ([facility] [place] [address] UREA NITROGEN/CREATINI NE (MASS RATIO) IN SER/PLAS 23.[address] [facility] Comment on above: Performed By: #### L [id number] ####[facility] ([facility] [place] [address] Prep for Procedureon 024 Prep for Procedure [id number] Jess Bacon 1955 F Date Provider Department Center 03/28/2024 [facility] No family history on file Normal [facility] TROPONIN Ion 03-28-2024 Troponin I.cardiac [Mass/Vol] 0.62 ng/mL Critically high 0.00-0.04 [facility] Comment on above: Result Comment: M-IN EVIOUS CRITICAL RESULT Previous result verified on 03/28/2024 0018 on specimen/case [id number] called with component Troponin I for procedure Troponin I with value 0.99 ng/mL. Performed By: #### L [id number] ####[facility] ([facility] [place] [address] 30on 03-27-2024 30 Daily Case Managemen t Update Multidisciplinary rounds have been completed. Barriers to Discharge et per Progress Note/s: Original DA from [facility] on 03-25 for NSTEMI. Hep gtt. TTE today et Stress Test tomorrow. PT OT recs Home. From Home. Diet: Dietary Orders (From admission, onward) Start Ordered 03/27/24 0001 Diet NPO Diet effective midnight Comments: Sips with medications Question: Reason for NPO: Answer: Operation/Procedure 03/26/24 1323 Physician Expected Discharge Date: 03/28/2024 Discharge Delays: PT Six Click Score: 24 OT Six Click Score: PT Recommendations: OT Recommendations: New Consults: Therapy Orders (From admission, onward) Start Ordered 03/27/24 1500 PT eval and treat Until therapy completed Question: Reason for PT? Answer: discharge recommendations 03/26/24 1654 03/26/24 1655 OT eval and treat Until therapy completed Question: Reason for OT? Answer: discharge recommendations 03/26/[address] [facility] 30 The patient is Moderately Stable - Low risk of patient condition declining or worsening The patient's goals for the shift include complete testing The clinical goals for the shift include vss Over the shift, the patient did not make progress toward the following goals. Barriers to progression include . Recommendations to address these barriers include . Normal [facility] ANTI-XA (HEPARIN LEVEL)on HEPARIN UNFRACTIONATED (U/ML) IN PPP BY CHROMOGENIC METHOD 0.37 IU/mL Normal 0.3-0.7 [facility] Comment on above: Order Comment: Check anti-Xa level every 6 hours while on heparin infusion, or per protocol. Result Comment: Cassi roxaban and Apixaban will interfere with the anti Xa assay used to monitor UFH and LMWH. Performed By: #### L [id number] #### [facility] ([facility] [address] [place] [address] CBCon 03-27-2024 Erythrocyte distribution width (RBC) [Ratio] 13.7 % Normal 11.5-15.0 [facility] Comment on above: Performed By: #### L [id number] #### [facility] ([facility] [address] [place] [address] ERYTHROCYTE MEAN CORPUSCULAR HEMOGLOBIN CONCENTRATION (G/DL) BY AUTOMATED 32.4 g/dL Normal 32.0-35.0 [facility] Comment on above: Performed By: #### L [id number] #### [facility] ([facility] [address] [place] [id number] Hematocrit (Bld) [Volume fraction] 41.0 % Normal 36.0-48.0 [facility] Comment on above: Performed By: #### L [id number] #### [facility] ([facility] [address] [place] [id number] Hemoglobin (Bld) [Mass/Vol] 13.3 g/dL Normal 12.0-15.0 [facility] Comment on above: Performed By: #### L [id number] #### [facility] ([facility] [address] [place] [id number] MCH (RBC) [Entitic mass] 28.5 pg Normal 27.0-33.0 [facility] Comment on above: Performed By: #### L [id number] #### [facility] ([facility] [address] [place] [id number] MCV (RBC) [Entitic vol] 88.0 fL Normal 82.0-98.0 [facility] Comment on above: Performed By: #### L [id number] #### [facility] ([facility] [address] [place] [id number] PLATELETS (10*3/UL) IN BLOOD AUTOMATED COUNT 182 10*3/uL Normal 150-400 [facility] Comment on above: Performed By: #### L [id number] #### [facility] ([facility] [address] [place] [id number] RBC (Bld) [#/Vol] 4.66 10*6/uL Normal 3.80-5.00 [facility] Comment on above: Performed By: #### L [id number] #### [facility] ([facility] [address] [place] [id number] WBC (Bld) [#/Vol] 5.82 10*3/uL Normal 4.00-10.60 [facility] Comment on above: Performed By: #### L [id number] #### [facility] ([facility]) [address] [place] [address] COMPREHENSIVE METABOLIC PANE Mynor 03-27-2024 Albumin [Mass/Vol] 3.4 g/dL Low 3.5-5.7 [facility] Comment on above: Performed By: #### L [id number] #### [facility] [address] [place] [address] ALP [Catalytic activity/Vol] 33 U/L Low 34-104 [facility] Comment on above: Performed By: #### L [id number] #### [facility] [address] [place] [address] ALT [Catalytic activity/Vol] 13 U/L Normal 7-52 [facility] Comment on above: Performed By: #### L [id number] #### [facility] [address] [place] [address] Anion gap [Moles/Vol] 11 mmol/L Normal 7-20 [facility] Comment on above: Performed By: #### L [id number] #### [facility] [address] [place] [address] AST [Catalytic activity/Vol] 18 U/L Normal 13-39 [facility] Comment on above: Performed By: #### L [id number] #### [facility] [address] [place] [address] Bilirubin [Mass/Vol] 0.4 mg/dL Normal 0.3-1.0 [facility] Comment on above: Performed By: #### L [id number] #### [facility] [address] [place] [address] Calcium [Mass/Vol] 8.6 mg/dL Normal 8.6-10.3 [facility] Comment on above: Performed By: #### L [id number] #### [facility] [address] [place] [address] Chloride [Moles/Vol] 107 mmol/L Normal 98-107 [facility] Comment on above: Performed By: #### L [id number] #### [facility] ([facility] [address] [place] [address] CO2 [Moles/Vol] 28 mmol/L Normal 21-31 [facility] Comment on above: Performed By: #### L [id number] #### [facility] ([facility] [address] [place] [address] Creatinine [Mass/Vol] 0.69 mg/dL Normal 0.60-1.20 [facility] Comment on above: Performed By: #### L [id number] #### [facility] ([facility] [address] [place] [address] GLOMERULAR FILTRATION RATE ML/MIN/1.73 SQ M.PREDICTED 94.5 mL/min/1.73m*2 Normal >60.0 [facility] Comment on above: Result Comment: The [facility]???s estimated glomerular filtration rate (eGFR) will no longer include consideration of race in its calculation. The National Kidney Foundation???s eGFR Task Force developed new recommendations for the estimation of the glomerular filtration rate in the [place] They recommend immediate implementation of the new equation refit without the race variable in all laboratories because the calculation does not include race. In addition to not including race in the calculation and reporting, it included diversity in its development, and has acceptable performance characteristics and potential consequences that do not disproportionately affect any one group of individuals. Performed By: #### L [id number] #### [facility] ([facility] [address] [place] [address] Glucose [Mass/Vol] 92 mg/dL Normal 70-100 [facility] Comment on above: Performed By: #### L [id number] #### [facility] ([facility] [address] [facility] [place] [address] Potassium [Moles/Vol] 4.2 mmol/L Normal 3.5-5.1 [facility] Comment on above: Performed By: #### L [id number] #### [facility] ([facility] [address] [place] [address] Protein [Mass/Vol] 5.4 g/dL Low 6.0-8.3 [facility] Comment on above: Performed By: #### L [id number] #### [facility] [address] [facility] [place] [address] Sodium [Moles/Vol] 142 mmol/L Normal 136-145 [facility] Comment on above: Performed By: #### L [id number] #### [facility] [address] [facility] [place] [address] Urea nitrogen [Mass/Vol] 16 mg/dL Normal 7-25 [facility] Comment on above: Performed By: #### L [id number] #### [facility] [address] [place] [address] UREA NITROGEN/CREATINI NE (MASS RATIO) IN SER/PLAS 23.[address] [facility] Comment on above: Performed By: #### L [id number] #### [facility] [address] [place] [address] CONSULTon 03-27-2024 CONSULT - Attestation signed by Dejan Lewis MD at 03/31/2024 8:59 AM The patient was discharged home before I was able to see her. She will be followed up in the GI clinic as an outpatient. Initial Gastroenterology/Hepa tology Consultation Note IDENTIFYING DATA PATIENT: Jess Bacon ADMIT DATE: 03/25/2024 TIME OF EVALUATION: 03/27/2024 2:35 PM Reason for Consult: Postprandial abdominal pain Admitting Physician: Maximino Cancino MD HISTORY OF PRESENT ILLNESS Jess Bacon is a 68 y.o. female with no significant PMHx. She initially presented to [facility] with abdominal pain, nausea/vomiting, and diarrhea, found to be dehydrated and resuscitated with IV fluids. Patient subsequently was found to have elevated troponin, therefore was transferred to [facility] due to concern for NSTEMI. GI was consulted for postprandial abdominal pain with nausea. Patient states that starting last she began to experience nausea with non-bloody emesis and multiple episodes of loose, watery stools. Following this, she began to have postprandial periumbilical abdominal pain as well without notable triggers. Patient states that since hospital presentation, her symptoms have resolved. She is tolerating a regular diet without nausea, vomiting, abdominal pain. Bowel movements are becoming less frequent and more formed. Denies unintentional weight loss, heartburn, regurgitation, dysphagia, melena, hematochezia. Denies smoking and EtOH use. No prior EGD. GI HISTORY SUMMARY TABLE Last EGD Last colonoscopy Primary GI physician PAST MEDICAL, SURGICAL, FAMILY, and SOCIAL HISTORY Past Medical History: History reviewed. No pertinent past medical history. Past Surgical History: History reviewed. No pertinent surgical history. Family History: No family history on file. Social History: Social History Tobacco Use Smoking status: Never Smokeless tobacco: Never Allergies: No Known Allergies MEDICATIONS Home Medications: Prior to Admission medications Medication Sig Start Date End Date Taking? Authorizing Provider oxybutynin XL (Ditropan-XL) 10 mg 24 hr tablet Take 10 mg by mouth in the morning. 02/10/24 Yes Historical Provider, carbamide peroxide (Debrox) 6.5 % otic solution Administer 5 drops into each ear in the morning. Historical Provider, cholecalciferol, vitamin D3, (Vitamin D3) 50 mcg (2,000 unit) capsule Take 3 capsules by mouth in the morning. Historical Provider, Current Medications: aspirin, 81 mg, oral, Daily atorvastatin, 40 mg, oral, Nightly oxybutynin XL, 10 mg, oral, Daily pantoprazole, 40 mg, oral, Daily sulfur hexafluoride microsphr, 2 mL, intravenous, Once in imaging PRNs: acetaminophen, 650 mg, q6h PRN hydrOXYzine pamoate, 25 mg, TID PRN melatonin, 5 mg, Nightly PRN ondansetron ODT, 4 mg, q8h PRN Or ondansetron, 4 mg, q6h PRN sennosides-docusate sodium, 1 tablet, Daily PRN REVIEW OF SYSTEMS See HPI, otherwise ROS negative as below CONSTITUTIONAL: negative HEENT: negative RESPIRATORY: negative CARDIOVASCULAR: negative GASTROINTESTINAL: as in HPI GENITOURINARY: negative INTEGUMENT/BREAST: negative HEMATOLOGIC/LYMPHATIC : negative ALLERGIC/IMMUNOLOGIC: negative ENDOCRINE: negative MUSCULOSKELETAL: negative NEUROLOGICAL: negative BEHAVIOR/PSYCH: negative OBJECTIVE DATA Vitals: BP 108/58 (BP Location: Right arm, Patient Position: Lying) Pulse 67 Temp 36.8 ???C (98.2 ???F) (Temporal) Resp 13 Ht 1.549 m (5' 1 ) Wt 53.3 kg (117 lb 6.4 oz) SpO2 96% BMI 22.18 kg/m??? GEN: Alert and oriented x3, NAD CV: Regular rate and rhythm PULM: Breathing comfortably ABD: Soft, non-tender, non-distended NEURO: Moves all visualized extremities spontaneously LABS AND IMAGING CBC: Results from last 7 days Lab Units 03/27/24 0535 03/26/24 0511 03/25/24 2311 WBC AUTO 10*3/uL 5.82 7.11 8.24 RBC AUTO 10*6/uL 4.66 4.66 4.86 HEMOGLOBIN g/dL 13.3 13.5 14.2 HEMATOCRIT % 41.0 40.8 44.6 MCV fL 88.0 87.6 91.8 RDW % 13.7 13.8 13.8 PLATELETS AUTO 10*3/uL 182 179 201 PT/INR Results from last 7 days Lab Units 03/25/24 2311 PROTIME Seconds 14.3 INR 1.11* BMP: Results from last 7 days Lab Units 03/27/24 0535 03/25/24 2311 SODIUM mmol/L 142 139 POTASSIUM mmol/L 4.2 3.8 CHLORIDE mmol/L 107 107 BUN mg/dL 16 12 CREATININE mg/dL 0.69 0.68 EGFR mL/min/1.73m*2 94.5 94.8 GLUCOSE mg/dL 92 105* LFTs: Results from last 7 days Lab Units 03/27/24 0535 03/25/24 2311 BILIRUBIN TOTAL mg/dL 0.4 0.8 BILIRUBIN DIRECT mg/dL -- 0.1 ALK PHOS U/L 33* 35 AST U/L 18 32 ALT U/L 13 21 ALBUMIN g/dL 3.4* 3.8 TOTAL PROTEIN g/dL 5.4* 6.1 B12/Folate/Iron studies: No results found for: [id number] , FOLATE , IRON , TIBC , UIBC , IRON (more content not included)... Normal [facility] TROPONIN Ion 03-27-2024 Troponin I.cardiac [Mass/Vol] 0.99 ng/mL Critically high 0.00-0.04 [facility] Comment on above: Result Comment: M-IN EVIOUS CRITICAL RESULT Previous result verified on 03/27/2024 1708 on specimen/case [id number] called with component Troponin I for procedure Troponin I with value 0.83 ng/mL. Performed By: #### L [id number] ####[facility] ([facility] [place] [address] Troponin I.cardiac [Mass/Vol] 0.83 ng/mL Critically high 0.00-0.04 [facility] Comment on above: Result Comment: M-IN EVIOUS CRITICAL RESULT Previous result verified on 03/27/2024 0148 on specimen/case [id number] called with component Troponin I for procedure Troponin I with value 2.59 ng/mL. Performed By: #### L [id number] #### [facility] ([facility]) [address] [place] [address] Troponin I.cardiac [Mass/Vol] 2.59 ng/mL Critically high 0.00-0.04 [facility] Comment on above: Result Comment: M-IN EVIOUS CRITICAL RESULT Previous result verified on 03/26/2024 1931 on specimen/case [id number] called with component Troponin I for procedure Troponin I with value 2.44 ng/mL. Performed By: #### L [id number] #### [facility] ([facility] [address] [place] [address] 30on 03-26-2024 30 The patient is Moderately Stable - Low risk of patient condition declining or worsening The patient's goals for the shift include feel better The clinical goals for the shift include stable vitals Over the shift, the patient did not make progress toward the following goals. Barriers to progression include . Recommendations to address these barriers include . Normal [facility] 30 The patient is Moderately Stable - Low risk of patient condition declining or worsening The patient's goals for the shift include comfort The clinical goals for the shift include stable vitals Normal [facility] ANTI-XA (HEPARIN LEVEL)on HEPARIN UNFRACTIONATED (U/ML) IN PPP BY CHROMOGENIC METHOD 0.52 IU/mL Normal 0.3-0.7 [facility] Comment on above: Order Comment: Check anti-Xa level every 6 hours while on heparin infusion, or per protocol. Result Comment: [place] roxaban and Apixaban will interfere with the anti Xa assay used to monitor UFH and LMWH. Performed By: #### L [id number] #### [facility] ([facility] [address] [place] [address] HEPARIN UNFRACTIONATED (U/ML) IN PPP BY CHROMOGENIC METHOD 0.65 IU/mL Normal 0.3-0.7 [facility] Comment on above: Order Comment: Check anti-Xa level every 6 hours while on heparin infusion, or per protocol. Result Comment: [place] roxaban and Apixaban will interfere with the anti Xa assay used to monitor UFH and LMWH. Performed By: #### L [id number] #### [facility] [address] [place] [address] HEPARIN UNFRACTIONATED (U/ML) IN PPP BY CHROMOGENIC METHOD 0.80 IU/mL High 0.3-0.7 [facility] Comment on above: Order Comment: Check anti-Xa level every 6 hours while on heparin infusion, or per protocol. Result Comment: [place] roxaban and Apixaban will interfere with the anti Xa assay used to monitor UFH and LMWH. Performed By: #### L [id number] #### [facility] ([facility] [address] [place] [address] CBCon 03-26-2024 Erythrocyte distribution width (RBC) [Ratio] 13.8 % Normal 11.5-15.0 [facility] Comment on above: Performed By: #### L [id number] #### [facility] ([facility] [address] [place] [address] ERYTHROCYTE MEAN CORPUSCULAR HEMOGLOBIN CONCENTRATION (G/DL) BY AUTOMATED 33.1 g/dL Normal 32.0-35.0 [facility] Comment on above: Performed By: #### L [id number] #### [facility] ([facility] [address] [place] [address] Hematocrit (Bld) [Volume fraction] 40.8 % Normal 36.0-48.0 [facility] Comment on above: Performed By: #### L [id number] #### [facility] ([facility] [address] [place] [address] Hemoglobin (Bld) [Mass/Vol] 13.5 g/dL Normal 12.0-15.0 [facility] Comment on above: Performed By: #### L [id number] #### [facility] ([facility] [address] [place] [address] MCH (RBC) [Entitic mass] 29.0 pg Normal 27.0-33.0 [facility] Comment on above: Performed By: #### L [id number] #### [facility] ([facility] [address] [place] [address] MCV (RBC) [Entitic vol] 87.6 fL Normal 82.0-98.0 [facility] Comment on above: Performed By: #### L [id number] #### [facility] ([facility] [address] [place] [address] PLATELETS (10*3/UL) IN BLOOD AUTOMATED COUNT 179 10*3/uL Normal 150-400 [facility] Comment on above: Performed By: #### L [id number] #### [facility] ([facility] [address] [place] [address] RBC (Bld) [#/Vol] 4.66 10*6/uL Normal 3.80-5.00 [facility] Comment on above: Performed By: #### L [id number] #### [facility] ([facility] [address] [place] [address] WBC (Bld) [#/Vol] 7.11 10*3/uL Normal 4.00-10.60 [facility] Comment on above: Performed By: #### L [id number] #### [facility] ([facility] [address] [place] [address] CONSULTon 03-26-2024 CONSULT - Attestation signed by Anderson Stiles MD at 03/27/2024 10:42 AM By using the attestations below, the signing clinician agrees that I have read and verify that the documentation has been personally reviewed by me and ensure that the documentation accurately reflects the encounter. GC: I personally saw this patient on the day of the encounter, performed the solares portion(s) of the service and participated in the management and confirm the resident's documentation. Please note there may be an additional personal documentation from me. Pt has RF and inlight of elevated troponin, can offer non invasive CAD eval. Cardiology Consult Note Reason for Consult: NSTEMI, known pt HPI: Jess Bacon is a 68 y.o. female with no known past medical history, no medications at home presented to the hospital due to elevated troponin the patient initially went to [facility] due to symptoms of abdominal pain, nausea vomiting diarrhea up to 8 times a day, watery consistency, she was dehydrated treated with IV fluids, troponin was checked found to be elevated so she was transferred here to rule out NSTEMI patient denies any chest pain shortness of breath orthopnea PND's no history of diabetes or hypertension no history of premature coronary artery disease today she is chest pain-free she still has mid abdominal pain with tenderness, EKG showed no acute ST wave changes concerning for acute coronary syndrome Cardiology ROS: negative except for the above Past Medical History She has no past medical history on file. Surgical History She has no past surgical history on file. Social History She reports that she has never smoked. She has never used smokeless tobacco. No history on file for alcohol use and drug use. Family History No family history on file. Allergies Patient has no known allergies. Medications Medications Prior to Admission Medication Sig Dispense Refill Last Dose oxybutynin XL (Ditropan-XL) 10 mg 24 hr tablet Take 10 mg by mouth in the morning. carbamide peroxide (Debrox) 6.5 % otic solution Administer 5 drops into each ear in the morning. cholecalciferol, vitamin D3, (Vitamin D3) 50 mcg (2,000 unit) capsule Take 3 capsules by mouth in the morning. Last Recorded Vitals Patient Vitals for the past 24 hrs: BP Temp Temp src Pulse Resp SpO2 Height Weight 03/26/24 1200 106/67 37 ???C (98.6 ???F) [facility] 73 17 100 % -- -- 03/26/24 0800 103/51 36.9 ???C (98.4 ???F) [facility] 68 14 97 % -- -- 03/26/24 0400 111/72 -- -- 62 13 97 % -- -- 03/26/24 0017 116/53 -- -- 66 19 100 % -- -- 03/25/24 2200 -- -- -- -- -- -- 1.549 m (5' 1 ) 52.8 kg (116 lb 6.4 oz) 03/25/24 2145 117/61 36.1 ???C (96.9 ???F) Temporal 65 13 100 % -- -- Physical Examination: GENERAL: AOx3, in no acute distress. HEAD: Atraumatic, normocephalic. EYES: AMY, EOMI. NECK: No JVD present. CARDIAC: RRR. No murmur, rubs, or gallops. RESPIRATORY: CTAB, no increased effort of breathing. ABDOMEN: Soft, nontender, nondistended. EXTREMITIES: No lower extremity edema, peripheral pulses are 2+ bilaterally. NEURO: No focal deficits Relevant Lab Results @LABRESULTS@ Encounter Date: 03/25/24 ECG 12 lead Result Value Ventricular Rate 67 Atrial Rate 67 IN Interval 142 QRS DURATION 70 QT Interval 448 QTC CALCULATION(BAZETT) 473 P [place] 83 R-[place] -5 T Wave [place] -22 Impression Normal sinus rhythm Possible Inferior infarct (cited on or before 25-MAR-2024) Abnormal ECG When compared with ECG of 25-MAR-2024 23:28, (unconfirmed) Nonspecific T wave abnormality has replaced inverted T waves in Inferior lead Nonspecific T wave abnormality has replaced inverted T waves in Lateral Lab Results Component Value Date TROPONINI 3.34 (HH) 03/26/2024 No echocardiogram results found for the past 12 months No nuclear medicine results found for the past 12 months Relevant Imaging Results ECG 12 lead Normal sinus rhythm Possible Inferior infarct (cited on or before 25-MAR-2024) Abnormal ECG When compared with ECG of 25-MAR-2024 23:28, (unconfirmed) Nonspecific T wave abnormality has replaced inverted T waves in Inferior lead Nonspecific T wave abnormality has replaced inverted T waves in Lateral Assessment: elevated troponin peak at 3.5, most likely in the setting of demand ischemia cannot rule out type I NSTEMI volume depletion/dehydration in the setting of suspected gastroenteritis Plan: continue aspirin, atorvastatin and heparin for presumed coronary artery disease plan for echocardiogram treadmill exercise stress test tomorrow cardiology will follow along Sudhir Gayle MD [employer] [facility] - PGY4 [facility] Normal [facility] HEMOGLOBIN A1Con 03-26-2024 Glucose [Mass/Vol] 123 mg/dL Normal [facility] Comment on above: Performed By: #### L [id number] #### [facility] ([facility]) [address] [place] [address] HbA1c (Bld) [Mass fraction] 5.9 % Normal 4.0-6.0 [facility] Comment on above: Performed By: #### L [id number] #### [facility] ([facility]) [address] [place] [address] HPon 03-26-2024 HP - Attestation signed by Anderson Stiles MD at 03/27/2024 10:42 AM By using the attestations below, the signing clinician agrees that I have read and verify that the documentation has been personally reviewed by me and ensure that the documentation accurately reflects the encounter. GC: I personally saw this patient on the day of the encounter, performed the solares portion(s) of the service and participated in the management and confirm the resident's documentation. Please note there may be an additional personal documentation from me. Pt has RF and inlight of elevated troponin, can offer non invasive CAD eval. Cardiology Consult Note Reason for Consult: NSTEMI, known pt HPI: Jess Bacno is a 68 y.o. female with no known past medical history, no medications at home presented to the hospital due to elevated troponin the patient initially went to [facility] due to symptoms of abdominal pain, nausea vomiting diarrhea up to 8 times a day, watery consistency, she was dehydrated treated with IV fluids, troponin was checked found to be elevated so she was transferred here to rule out NSTEMI patient denies any chest pain shortness of breath orthopnea PND's no history of diabetes or hypertension no history of premature coronary artery disease today she is chest pain-free she still has mid abdominal pain with tenderness, EKG showed no acute ST wave changes concerning for acute coronary syndrome Cardiology ROS: negative except for the above Past Medical History She has no past medical history on file. Surgical History She has no past surgical history on file. Social History She reports that she has never smoked. She has never used smokeless tobacco. No history on file for alcohol use and drug use. Family History No family history on file. Allergies Patient has no known allergies. Medications Medications Prior to Admission Medication Sig Dispense Refill Last Dose oxybutynin XL (Ditropan-XL) 10 mg 24 hr tablet Take 10 mg by mouth in the morning. carbamide peroxide (Debrox) 6.5 % otic solution Administer 5 drops into each ear in the morning. cholecalciferol, vitamin D3, (Vitamin D3) 50 mcg (2,000 unit) capsule Take 3 capsules by mouth in the morning. Last Recorded Vitals Patient Vitals for the past 24 hrs: BP Temp Temp src Pulse Resp SpO2 Height Weight 03/26/24 1200 106/67 37 ???C (98.6 ???F) Temporal 73 17 100 % -- -- 03/26/24 0800 103/51 36.9 ???C (98.4 ???F) Temporal 68 14 97 % -- -- 03/26/24 0400 111/72 -- -- 62 13 97 % -- -- 03/26/24 0017 116/53 -- -- 66 19 100 % -- -- 03/25/24 2200 -- -- -- -- -- -- 1.549 m (5' 1 ) 52.8 kg (116 lb 6.4 oz) 03/25/24 2145 117/61 36.1 ???C (96.9 ???F) Temporal 65 13 100 % -- -- Physical Examination: GENERAL: AOx3, in no acute distress. HEAD: Atraumatic, normocephalic. EYES: AMY, EOMI. NECK: No JVD present. CARDIAC: RRR. No murmur, rubs, or gallops. RESPIRATORY: CTAB, no increased effort of breathing. ABDOMEN: Soft, nontender, nondistended. EXTREMITIES: No lower extremity edema, peripheral pulses are 2+ bilaterally. NEURO: No focal deficits Relevant Lab Results @LABRESULTS@ Encounter Date: 03/25/24 ECG 12 lead Result Value Ventricular Rate 67 Atrial Rate 67 IN Interval 142 QRS DURATION 70 QT Interval 448 QTC CALCULATION(BAZETT) 473 P [place] 83 R-[place] -5 T Wave [place] -22 Impression Normal sinus rhythm Possible Inferior infarct (cited on or before 25-MAR-2024) Abnormal ECG When compared with ECG of 25-MAR-2024 23:28, (unconfirmed) Nonspecific T wave abnormality has replaced inverted T waves in Inferior lead Nonspecific T wave abnormality has replaced inverted T waves in Lateral Lab Results Component Value Date TROPONINI 3.34 (HH) 03/26/2024 No echocardiogram results found for the past 12 months No nuclear medicine results found for the past 12 months Relevant Imaging Results ECG 12 lead Normal sinus rhythm Possible Inferior infarct (cited on or before 25-MAR-2024) Abnormal ECG When compared with ECG of 25-MAR-2024 23:28, (unconfirmed) Nonspecific T wave abnormality has replaced inverted T waves in Inferior lead Nonspecific T wave abnormality has replaced inverted T waves in Lateral Assessment: elevated troponin peak at 3.5, most likely in the setting of demand ischemia cannot rule out type I NSTEMI volume depletion/dehydration in the setting of suspected gastroenteritis Plan: continue aspirin, atorvastatin and heparin for presumed coronary artery disease plan for echocardiogram treadmill exercise stress test tomorrow cardiology will follow along Sudhir Gayle MD [employer] - PGY4 [facility] Normal [facility] LIPID PANELon 03-26-2024 CHOL/HDL 4.0 mg/dL Normal [facility] Comment on above: Performed By: #### L [id number] ####[facility] ([employer])[address] [place] [address] Cholesterol [Mass/Vol] 135 mg/dL Normal 120-200 [facility] Comment on above: Performed By: #### L [id number] ####[facility] ([employer])[address] [place] [address] Magnesium [Mass/Vol] 55 mg/dL Normal 40-149 [facility] Comment on above: Result Comment: TRIG LYCERIDE REFERENCE RANGE: 20 YEARS AND OLDER CARDIOVASCULAR RISK LESS THAN 150 mg/dL LOW RISK 150 TO 199 mg/dL BORDERLINE RISK 200 mg/dL AND GREATER HIGH RISK Performed By: #### L [id number] ####[facility] ([facility] [place] [address] Magnesium [Mass/Vol] 90 mg/dL Normal 0-160 [facility] Comment on above: Performed By: #### L [id number] ####[facility] ([facility] [place] [address] Magnesium [Mass/Vol] 34 mg/dL Normal 23-92 [facility] Comment on above: Performed By: #### L [id number] ####[facility] ([facility] [place] [address] NON HDL CHOL. (LDL+VLDL) [address] [facility] Comment on above: Performed By: #### L [id number] ####[facility] ([facility] [place] [address] TOTAL VLDL-C 11 mg/dL Normal 0-40 [facility] Comment on above: Performed By: #### L [id number] ####[facility] ([facility] [place] [address] TROPONIN Ion 03-26-2024 Troponin I.cardiac [Mass/Vol] 2.44 ng/mL Critically high 0.00-0.04 [facility] Comment on above: Result Comment: M-IN EVIOUS CRITICAL RESULT Previous result verified on 03/26/202451 on specimen/case [id number] called with component Troponin I for procedure Troponin I with value 2.77 ng/mL. Performed By: #### L [id number] #### [facility] ([facility] [address] [place] [address] Troponin I.cardiac [Mass/Vol] 2.07 ng/mL Critically high 0.00-0.04 [facility] Comment on above: Result Comment: M-IN EVIOUS CRITICAL RESULT Previous result verified on 03/26/202451 on specimen/case [id number] called with component Troponin I for procedure Troponin I with value 2.77 ng/mL. Performed By: #### L [id number] ####[facility] ([facility] [place] [address] Troponin I.cardiac [Mass/Vol] 3.34 ng/mL Critically high 0.00-0.04 [facility] Comment on above: Result Comment: M-IN EVIOUS CRITICAL RESULT Previous result verified on 03/26/2024 0052 on specimen/case 24H- called with component Troponin I for procedure Troponin I with value 2.77 ng/mL. Performed By: #### L [id number] #### [facility] ([facility] [address] [place] [address] URINALYSISon 03-26-2024 BILIRUBIN, TOTAL PRESENCE IN URINE Negative Normal Negative [facility] Comment on above: Performed By: #### L [id number] #### [facility] ([facility] [address] [place] [address] Clarity (U) Slightly Cloudy Abnormal Clear [facility] Comment on above: Performed By: #### L [id number] #### [facility] ([facility] [address] [place] [address] Color (U) Yellow Normal Yellow [facility] Comment on above: Performed By: #### L [id number] #### [facility] ([facility] [address] [place] [address] Glucose (U) [Mass/Vol] Negative Normal Negative [facility] Comment on above: Performed By: #### L [id number] #### [facility] ([facility] [address] [place] [address] HEMOGLOBIN PRESENCE IN URINE Negative Normal Negative [facility] Comment on above: Performed By: #### L [id number] #### [facility] [facility] ([facility] [address] [facility] [address] Ketones Ql (U) 20 mg/dL Abnormal Negative [facility] Comment on above: Performed By: #### L [id number] #### [facility] ([facility])) [address] [place] [address] LEUKOCYTE ESTERASE PRESENCE IN URINE BY TEST STRIP Large Abnormal Negative [facility] Comment on above: Performed By: #### L [id number] #### [facility] ([facility]) [address] [place] [address] NITRITE PRESENCE IN URINE Negative Normal Negative [facility] Comment on above: Performed By: #### L [id number] #### [facility] [address] [place] [address] pH (U) 5.0 [pH] Normal 5.0-8.0 [facility] Comment on above: Performed By: #### L [id number] #### [facility] [address] [place] [address] Protein (U) [Mass/Vol] Negative Normal Negative [facility] Comment on above: Performed By: #### L [id number] #### [facility] [address] [place] [address] Specific gravity (U) [Rel density] 1.025 High 1.015-1.020 [facility] Comment on above: Performed By: #### L [id number] #### [facility] ([facility]) [address] [place] [address] URINALYSIS MICROSCOPICon CASTS IN URINE Normal [facility] Comment on above: Performed By: #### L [id number] #### [facility] [address] [place] [address] CRYSTALS IN URINE Normal [facility] Comment on above: Performed By: #### L [id number] #### [facility] [address] [place] [address] MUCUS (#/HPF) IN URINE SEDIMENT Moderate Abnormal None Seen, Occasional, Few [facility] Comment on above: Performed By: #### L [id number] #### [facility] [address] [place] [address] RBC (#/HPF) IN URINE SEDIMENT 0-[address] [facility] Comment on above: Performed By: #### L [id number] #### [facility] ([facility] [address] [place] [address] SQUAMOUS EPITHELIAL CELLS (#/HPF) IN URINE SEDIMENT Many Abnormal None Seen, Occasional [facility] Comment on above: Performed By: #### L [id number] #### [facility] ([facility])) [address] [place] [address] WBC (LEUKOCYTE) (#/HPF) IN URINE SEDIMENT 21-[address] [facility] Comment on above: Performed By: #### L [id number] #### [facility] ([facility])) [address] [place] [address] APTTon 03-25-2024 ACTIVATED PARTIAL THROMBOPLASTIN TIME IN PPP BY COAGULATION ASSAY 24.4 Seconds Low 25.0-35.0 [facility] Comment on above: Order Comment: Basel ine aPTT before initiating heparin infusion. Result Comment: Clin ical significance of the APTT is questionable in the presence of heparin. Performed By: #### L [id number] ####[facility] ([facility]))[address] [address] B-TYPE NATRIURETIC PEPTIDEon 03-25-2024 Natriuretic peptide B (Bld) [Mass/Vol] 267 pg/mL High 0-100 [facility] Comment on above: Performed By: #### L [id number] ####[facility] ([facility]))[address] [place] [address] BASIC METABOLIC PANELon 03-07 Anion gap [Moles/Vol] 12 mmol/L Normal 7-20 [facility] Comment on above: Performed By: #### L [id number] ####[facility] ([facility]))[address] [address] Calcium [Mass/Vol] 8.6 mg/dL Normal 8.6-10.3 [facility] Comment on above: Performed By: #### L [id number] ####[facility] ([facility]))[address] [place] [address] Chloride [Moles/Vol] 107 mmol/L Normal 98-107 [facility] Comment on above: Performed By: #### L [id number] ####[facility] ([facility])[address] [place] [address] CO2 [Moles/Vol] 24 mmol/L Normal 21-31 [facility] Comment on above: Performed By: #### L [id number] ####[facility] ([facility])[address] [place] [address] Creatinine [Mass/Vol] 0.68 mg/dL Normal 0.60-1.20 [facility] Comment on above: Performed By: #### L [id number] ####[facility] ([facility])[address] [place] [address] GLOMERULAR FILTRATION RATE ML/MIN/1.73 SQ M.PREDICTED 94.8 mL/min/1.73m*2 Normal >60.0 [facility] Comment on above: Result Comment: The [facility]???s estimated glomerular filtration rate (eGFR) will no longer include consideration of race in its calculation. The National Kidney Foundation???s eGFR Task Force developed new recommendations for the estimation of the glomerular filtration rate in the [place] They recommend immediate implementation of the new equation refit without the race variable in all laboratories because the calculation does not include race. In addition to not including race in the calculation and reporting, it included diversity in its development, and has acceptable performance characteristics and potential consequences that do not disproportionately affect any one group of individuals. Performed By: #### L [id number] ####[facility] ([facility])[address] [place] [address] Glucose [Mass/Vol] 105 mg/dL High 70-100 [facility] Comment on above: Performed By: #### L [id number] ####[facility] ([facility])[address] [place] [address] Potassium [Moles/Vol] 3.8 mmol/L Normal 3.5-5.1 [facility] Comment on above: Performed By: #### L [id number] ####[facility] ([facility])[address] [place] [address] Sodium [Moles/Vol] 139 mmol/L Normal 136-145 [facility] Comment on above: Performed By: #### L [id number] ####[facility] ([facility]))[address] [place] [address] Urea nitrogen [Mass/Vol] 12 mg/dL Normal 7-25 [facility] Comment on above: Performed By: #### L [id number] ####[facility] ([facility]))[address] [place] [address] UREA NITROGEN/CREATINI NE (MASS RATIO) IN SER/PLAS 17.[address] [facility] Comment on above: Performed By: #### L [id number] ####[facility] ([facility]))[address] [place] [address] CBC WITH AUTO DIFFERENTIALon 03-25-2024 Basophils (Bld) [#/Vol] 0.05 10*3/uL Normal 0.00-0.20 [facility] Comment on above: Performed By: #### L [id number] ####[facility] ([facility]))[address] [place] [address] Basophils/100 WBC (Bld) 0.6 % Normal 0.0-1.0 [facility] Comment on above: Performed By: #### L [id number] ####[facility] ([facility]))[address] [place] [address] Eosinophils (Bld) [#/Vol] 0.15 10*3/uL Normal 0.00-0.50 [facility] Comment on above: Performed By: #### L [id number] ####[facility] ([facility]))[address] [place] [address] Eosinophils/100 WBC (Bld) 1.8 % Normal 0.0-6.0 [facility] Comment on above: Performed By: #### L [id number] ####[facility] ([facility]))[address] [place] [address] Erythrocyte distribution width (RBC) [Ratio] 13.8 % Normal 11.5-15.0 [facility] Comment on above: Performed By: #### L [id number] ####[facility] ([facility])[address] [place] [address] ERYTHROCYTE MEAN CORPUSCULAR HEMOGLOBIN CONCENTRATION (G/DL) BY AUTOMATED 31.8 g/dL Low 32.0-35.0 [facility] Comment on above: Performed By: #### L [id number] ####[facility] ([facility])[address] [place] [address] Hematocrit (Bld) [Volume fraction] 44.6 % Normal 36.0-48.0 [facility] Comment on above: Performed By: #### L [id number] ####[facility] ([facility])[address] [place] [address] Hemoglobin (Bld) [Mass/Vol] 14.2 g/dL Normal 12.0-15.0 [facility] Comment on above: Performed By: #### L [id number] ####[facility] ([facility])[address] [place] [address] Immature granulocytes (Bld) [#/Vol] 0.03 10*3/uL Normal 0.00-0.20 [facility] Comment on above: Performed By: #### L [id number] ####[facility] ([facility])[address] [place] [address] Immature granulocytes/100 WBC (Bld) 0.4 % Normal 0.0-1.0 [facility] Comment on above: Performed By: #### L [id number] ####[facility] ([facility])[address] [place] [address] Lymphocytes (Bld) [#/Vol] 1.52 10*3/uL Normal 1.20-4.00 [facility] Comment on above: Performed By: #### L [id number] ####[facility] ([facility])[address] [place] [address] Lymphocytes/100 WBC (Bld) 18.4 % Low 20.0-45.0 [facility] Comment on above: Performed By: #### L [id number] ####[facility] ([facility])[address] [place] [address] MCH (RBC) [Entitic mass] 29.2 pg Normal 27.0-33.0 [facility] Comment on above: Performed By: #### L [id number] ####[facility] ([facility])[address] [place] [address] MCV (RBC) [Entitic vol] 91.8 fL Normal 82.0-98.0 [facility] Comment on above: Performed By: #### L [id number] ####[facility] ([facility])[address] [place] [address] Monocytes (Bld) [#/Vol] 0.58 10*3/uL Normal 0.10-1.00 [facility] Comment on above: Performed By: #### L [id number] ####[facility] ([facility])[address] [place] [address] Monocytes/100 WBC (Bld) 7.0 % Normal 5.0-12.0 [facility] Comment on above: Performed By: #### L [id number] ####[facility] ([facility])[address] [place] [address] Neutrophils (Bld) [#/Vol] 5.91 10*3/uL Normal 1.60-7.60 [facility] Comment on above: Performed By: #### L [id number] ####[facility] ([facility])[address] [place] [address] Neutrophils/100 WBC (Bld) 71.8 % Normal 40.0-72.0 [facility] Comment on above: Performed By: #### L [id number] ####[facility] ([facility])[address] [place] [address] NRBC (PER 100 WBCS) BY AUTOMATED COUNT 0.0 % Normal 0 [facility] Comment on above: Performed By: #### L [id number] ####[facility] (BEAKER)[address] [place] [address] PLATELETS (10*3/UL) IN BLOOD AUTOMATED COUNT 201 10*3/uL Normal 150-400 [facility] Comment on above: Performed By: #### L [id number] ####[facility] ([facility]))[address] [place] [address] RBC (Bld) [#/Vol] 4.86 10*6/uL Normal 3.80-5.00 [facility] Comment on above: Performed By: #### L [id number] ####[facility] ([facility]))[address] [place] [address] WBC (Bld) [#/Vol] 8.24 10*3/uL Normal 4.00-10.60 [facility] Comment on above: Performed By: #### L [id number] ####[facility] ([facility]))[address] [place] [address] HEPATIC FUNCTION PANELon Albumin [Mass/Vol] 3.8 g/dL Normal 3.5-5.7 [facility] Comment on above: Performed By: #### L [id number] #### [facility] ([facility])) [address] [place] [address] ALP [Catalytic activity/Vol] 35 U/L Normal 34-104 [facility] Comment on above: Performed By: #### L [id number] #### [facility] ([facility])) [address] [place] [address] ALT [Catalytic activity/Vol] 21 U/L Normal 7-52 [facility] Comment on above: Performed By: #### L [id number] #### [facility] ([facility])) [address] [place] [address] AST [Catalytic activity/Vol] 32 U/L Normal 13-39 [facility] Comment on above: Performed By: #### L [id number] #### [facility] ([facility])) [address] [place] [address] Bilirubin [Mass/Vol] 0.8 mg/dL Normal 0.3-1.0 [facility] Comment on above: Performed By: #### L [id number] #### [facility] ([facility])) [address] [place] [address] Magnesium [Mass/Vol] 0.1 mg/dL Normal 0-0.2 [facility] Comment on above: Performed By: #### L [id number] #### [facility] ([facility])) [address] [place] [address] Protein [Mass/Vol] 6.1 g/dL Normal 6.0-8.3 [facility] Comment on above: Performed By: #### L [id number] #### [facility] ([facility])) [address] [place] [address] MAGNESIUMon 03-25-2024 Magnesium [Mass/Vol] 2.0 mg/dL Normal 1.9-2.7 [facility] Comment on above: Performed By: #### L [id number] ####[facility] ([facility]))[address] [address] PHOSPHORUSon 03-25-2024 Magnesium [Mass/Vol] 3.1 mg/dL Normal 2.5-5.0 [facility] Comment on above: Performed By: #### L [id number] ####[facility] ([facility]))[address] [place] [address] PROTIME-INRon 03-25-2024 INR IN PPP BY COAGULATION ASSAY 1.11 High 0.90-1.10 [facility] Comment on above: Result Comment: ACCC P RECOMMENDED INR FOR WARFARIN THERAPY CONDITION INR PROPHYLAXIS OF VENOUS THROMBOSIS 2-3 (HIGH-RISK SURGERY) TREATMENT OF VENOUS THROMBOSIS 2-3 TREATMENT OF PULMONARY EMBOLISM 2-3 PREVENTION OF SYSTEMIC EMBOLISM: 2-3 ACUTE MYOCARDIAL INFARCTION TISSUE HEART VALVES VALVULAR HEART DISEASE ATRIAL FIBRILLATION RECURRENT SYSTEMIC EMBOLISM MECHANICAL HEART VALVE 2.5-3.5 FROM: ORAL ANTICOAGULANTS. MECHANISM OF ACTION, CLINICAL EFFECTIVENESS, AND OPTIMAL THERAPEUTIC RANGE. CHEST 1995;108:231S-246S. Performed By: #### L [id number] ####[facility] ([facility]))[address] [place] [address] PROTHROMBIN TIME (PT) IN PPP BY COAGULATION ASSAY 14.3 Seconds Normal 12.3-14.8 [facility] Comment on above: Performed By: #### L [id number] ####[facility] ([facility]))[address] [place] [address] TROPONIN Ion 03-25-2024 Troponin I.cardiac [Mass/Vol] 2.77 ng/mL Critically high 0.00-0.04 [facility] Comment on above: Result Comment: SANDY MARTINEZ INITIAL CRITICAL HIGH; RESPUN AND RETESTED Performed By: #### L [id number] #### [facility] ([facility])) [address] [place] [address] Family Medicine Office/Clini c Noteon 03-17-2024 Family Medicine Office/Clinic Note Family Medicine Office/Clinic Note HPI Staff Jess is a 68 year old presenting with right ear pain RADHA 02/08/24 fluid tympanic membrane gave Kenalog onset: 1 month ago Fevers: no Sinus congestion: yes Sneezing: yes Ear pain: no Ear itching, popping, fullness, ringing, muffled hearing: fullness left ear Ear drainage: no Swollen nodes: Sore throat: no Ear pain worse with chewing: no Itching: no Difficulty hearing: unable to hear out of left ear Pt states she took Sudafed and Zyrtec for only 10 days she said she felt better while taking it. History of Present Illness pt presents today her right ear is blocked can not hear out of it Review of Systems PHQ Score Initial Depression Screen Score: 0 SCORE Physical Exam Vitals & Measurements T: 37.5 ?C(Tympanic) HR: 72(Peripheral) RR: 16 BP: 120/62 SpO2: 96% HT: 62 in HT: 158.0 cm WT: 54.6 kg WT: 120.12 lb BMI: 21.87 General: alert, no acute distress ENMT: oral mucosa moist, no pharyngeal erythema or exudate Cardiovascular: regular rate and rhythm, normal peripheral perfusion Respiratory: Lungs CTA, respirations non labored Extremities: no deformity, no trauma Neurological: oriented x 4, LOC appropriate for age, CN II-XII intact, motor strength equal & normal bilaterally, speech normal Assessment/Plan 1. Cerumen impaction (H61.20: Impacted cerumen, unspecified ear) QUEENIE ear canals are impacted with was. pt to use debrox drops and return for ear irrigation. 2. BMI 21.0-21.9, adult (Z68.21: Body mass index [BMI] 21.0-21.9, adult) ZBMI education given 3. Non-smoker (Z78.9: Other specified health status) continue not smoking Follow-up No qualifying data available Problem List/Past Medical History Ongoing Acute bronchitis Acute frontal sinusitis Anxiety disorder Breast cancer screening by mammogram Cerumen impaction Dupuytrens contracture Fluid level behind tympanic membrane of both ears Ingrown right big toenail Lower extremity neuropathy Onychomycosis Osteoarthritis of lumbosacral spine Radiculopathy Right elbow pain Sore throat Spondylosis Syncope Trigger finger of right hand Trigger ring finger of right hand Wellness examination Historical No qualifying data Procedure/Surgical History Appendectomy, Cholecystectomy, Colonoscopy, D (dilation) and C (curettage) of uterus, Partial hysterectomy. Medications Compression stockings, See Instructions escitalopram 5 mg oral tablet, 5 mg= 1 tab(s), Oral, Daily, 3 refills oxybutynin 10 mg ER Tab, 10 mg= 1 tab(s), Oral, Daily Vitamin D3 2000 intl units oral Tab, 50 mcg, Oral, Daily Allergies No Known Medication Allergies Social History Alcohol - Denies Alcohol Use, 11/30/2022 Household alcohol concerns: No., 04/23/2023 Substance Abuse - Denies Substance Abuse, 11/30/2022 Household substance abuse concerns: No., 11/30/2022 Tobacco - Denies Tobacco Use, 11/30/2022 Never (less than 100 in lifetime) Tobacco Use:. Never Smokeless Tobacco Use:. Household tobacco concerns: No., 03/17/2024 Family History Emphysema: Father. Schizoaffective disorder: Mother. Immunizations Vaccine Date Status Comments influenza virus vaccine, inactivated - Not Given Patient Refuses SARS-CoV-2 mRNA (tozinameran 5y-11y) vac - Not Given Patient Refuses Normal [facility] Comment on above: Result Comment: Elec tronically Signed By: Millie Florentino\.br\Date and Time Signed: 03/17/24 15:22 EDT Cons[place] 02-09-2024 Consent [id number] [id number] Normal [facility] Ambulatory Visit Summaryon 0 02-08-2024 Ambulatory Visit Summary ARLEEN, JESS Selby :1955 Visit Date:02/08/2024 Ambulatory Visit Instructions Your Diagnosis Fluid level behind tympanic membrane of both ears BMI 22.0-22.9, adult Non-smoker Your Care Team Attending Physician - Millie Florentino Primary Care Physician - Millie Florentino This Is Your Medications List Misc Prescription (Compression stockings) amoxicillin (amoxicillin 500 mg Cap) cholecalciferol (Vitamin D3 2000 intl units oral Tab) escitalopram (escitalopram 5 mg oral tablet) Procedures Performed Appendectomy, Cholecystectomy, Colonoscopy, D (dilation) and C (curettage) of uterus, Partial hysterectomy. Discharge Vitals Temperature (Tympanic) 36.4 ?C Heart Rate (Peripheral) 86 Respiratory Rate 18 Blood Pressure 126/62 Height 158.0 cm Height 62 in Weight 56.1 kg Weight 123.42 lb BMI 22.47 What to do next Scheduled Follow-Up Appointments 2023 1:00 PM EDT Where: [facility] [place] Normal [facility] Family Medicine Office/Clini c Noteon 02-08-2024 Family Medicine Office/Clinic Note HPI Staff Jess is a 68 year old female presenting for Pt went to urgent care in [place] 01/31 started on Amoxcillin Onset: 9 days Sinus congestion: yes Sneezing: yes Ear pain: no Ear itching, popping, fullness, ringing, muffled hearing: right ear plugged Ear drainage: no Swollen nodes: no Sore throat: no Ear pain worse with chewing: Itching: no Post nasal drainage: yes c Dry cough: yes Difficulty hearing: yes out of right ear History of Present Illness pt presents today with c/o right ear being plugged up. Review of Systems PHQ Score Initial Depression Screen Score: 0 SCORE Physical Exam Vitals & Measurements T: 36.4 ?C(Tympanic) HR: 86(Peripheral) RR: 18 BP: 126/62 SpO2: 96% HT: 62 in HT: 158.0 cm WT: 56.1 kg WT: 123.42 lb BMI: 22.47 General: alert, no acute distress ENMT: oral mucosa moist, no pharyngeal erythema or exudate, QUEENIE TM full of clear fluid Cardiovascular: regular rate and rhythm, normal peripheral perfusion Respiratory: Lungs CTA, respirations non labored Extremities: no deformity, no trauma Neurological: oriented x 4, LOC appropriate for age, CN II-XII intact, motor strength equal & normal bilaterally, speech normal Assessment/Plan 1. Fluid level behind tympanic membrane of both ears (H65.93: Unspecified nonsuppurative otitis media, bilateral) QUEENIE TM full of clear fluid, will give her 40 of kenalog in office today. pt encouraged to get sudafed or take zyrtec as well for 2 weeks. all questoins answered. RTC as needed 2. BMI 22.0-22.9, adult (Z68.22: Body mass index [BMI] 22.0-22.9, adult) BMI education complete 3. Non-smoker (Z78.9: Other specified health status) continue not smoking Follow-up No qualifying data available Problem List/Past Medical History Ongoing Acute bronchitis Acute frontal sinusitis Anxiety disorder Breast cancer screening by mammogram Dupuytrens contracture Fluid level behind tympanic membrane of both ears Ingrown right big toenail Lower extremity neuropathy Onychomycosis Osteoarthritis of lumbosacral spine Radiculopathy Right elbow pain Sore throat Spondylosis Syncope Trigger finger of right hand Trigger ring finger of right hand Wellness examination Historical No qualifying data Procedure/Surgical History Appendectomy, Cholecystectomy, Colonoscopy, D (dilation) and C (curettage) of uterus, Partial hysterectomy. Medications amoxicillin 500 mg Cap, 500 mg= 1 cap(s), Oral Compression stockings, See Instructions escitalopram 5 mg oral tablet, 5 mg= 1 tab(s), Oral, Daily, 3 refills Vitamin D3 2000 intl units oral Tab, 50 mcg, Oral, Daily Allergies No Known Medication Allergies Social History Alcohol - Denies Alcohol Use, 11/30/2022 Household alcohol concerns: No., 04/23/2023 Substance Abuse - Denies Substance Abuse, 11/30/2022 Household substance abuse concerns: No., 11/30/2022 Tobacco - Denies Tobacco Use, 11/30/2022 Never (less than 100 in lifetime) Tobacco Use:. Never Smokeless Tobacco Use:. Household tobacco concerns: No., 02/08/2024 Family History Emphysema: Father. Schizoaffective disorder: Mother. Immunizations Vaccine Date Status Comments influenza virus vaccine, inactivated - Not Given Patient Refuses SARS-CoV-2 mRNA (tozinameran 5y-11y) vac - Not Given Patient Refuses Normal [facility] Comment on above: Result Comment: Elec tronically Signed By: Millie Florentino\.br\Date and Time Signed: 02/08/24 15:31 EDT Consultation Noteon 02-01-20 Consultation Note [id number]. [id number] [facility] Formson 02-01-2024 Forms [id number] .00TIFF [facility] Physician Referralon 024 Physician Referral [id number] .[id number] [facility] Ambulatory Visit Summaryon 0 12-17-2023 Ambulatory Visit Summary ARLEENJESS KAISER Sola :1955 Visit Date:12/17/2023 Ambulatory Visit Instructions Your Diagnosis Trigger finger of right hand Body mass index [BMI] 22.0-22.9, adult Your Care Team Attending Physician - Millie Florentino Primary Care Physician - Millie Florentino This Is Your Medications List Misc Prescription (Compression stockings) cholecalciferol (Vitamin D3 2000 intl units oral Tab) escitalopram (escitalopram 5 mg oral tablet) Procedures Performed Appendectomy, Cholecystectomy, Colonoscopy, D (dilation) and C (curettage) of uterus, Partial hysterectomy. Discharge Vitals Heart Rate (Peripheral) 68 Blood Pressure 142/68 Height 158 cm Height 62 in Weight 55.9 kg Weight 122.98 lb BMI 22.39 What to do next Scheduled Follow-Up Appointments 2023 1:00 PM EDT Where: [facility] [place] Normal [facility] Medicine Office/Clini c Noteon 12-17-2023 Family Medicine Office/Clinic Note Chief Complaint finger on right hand tucking under hand HPI Staff Patient presents for right hand issues. Fingers going under hand. Patient previously has had a trigger finger on left hand and feels the one on the right is the same thing. History of Present Illness pt presents today for trigger finger of right ring finger Review of Systems PHQ Score Initial Depression Screen Score: 0 SCORE Physical Exam Vitals & Measurements HR: 68(Peripheral) BP: 142/68 SpO2: 98% HT: 62 in HT: 158 cm WT: 55.9 kg WT: 122.98 lb BMI: 22.39 General: alert, no acute distress ENMT: oral mucosa moist, no pharyngeal erythema or exudate Cardiovascular: regular rate and rhythm, normal peripheral perfusion Respiratory: Lungs CTA, respirations non labored Extremities: no deformity, no trauma Neurological: oriented x 4, LOC appropriate for age, CN II-XII intact, motor strength equal & normal bilaterally, speech normal Assessment/Plan 1. Trigger finger of right hand (M65.30: Trigger finger, unspecified finger) pt c/o worsening trigger finger of right ring finger. she previously had same finger on left on surgically fixed in [place]. but she does not want to go back to [place]. will refer to Dr. Dickerson in [place]. RTC 3 months. note provided to work no more than 8 hours per day and no vibrating tools Ordered: [facility] External Ambulatory Referral Body mass index [BMI] 22.0-22.9, adult (Z68.22: Body mass index [BMI] 22.0-22.9, adult) BMI education complete Ordered: Body Mass Index (BMI) documented 3008F Current tobacco non-user 1036F Depression Screening Negative 3352F Medication list documented in medical record 1159F Patient screen for fall risk: no falls in last year or 1 fall with no injury in last year 1101F Follow-up No qualifying data available Problem List/Past Medical History Ongoing Acute bronchitis Acute frontal sinusitis Anxiety disorder Breast cancer screening by mammogram Dupuytrens contracture Ingrown right big toenail Lower extremity neuropathy Onychomycosis Osteoarthritis of lumbosacral spine Radiculopathy Right elbow pain Sore throat Spondylosis Syncope Trigger finger of right hand Trigger ring finger of right hand Wellness examination Historical No qualifying data Procedure/Surgical History Appendectomy, Cholecystectomy, Colonoscopy, D (dilation) and C (curettage) of uterus, Partial hysterectomy. Medications Compression stockings, See Instructions escitalopram 5 mg oral tablet, 5 mg= 1 tab(s), Oral, Daily, 3 refills Vitamin D3 2000 intl units oral Tab, 50 mcg, Oral, Daily Allergies No Known Medication Allergies Social History Alcohol - Denies Alcohol Use, 11/30/2022 Household alcohol concerns: No., 04/23/2023 Substance Abuse - Denies Substance Abuse, 11/30/2022 Household substance abuse concerns: No., 11/30/2022 Tobacco - Denies Tobacco Use, 11/30/2022 Never (less than 100 in lifetime) Tobacco Use:. Never Smokeless Tobacco Use:. Household tobacco concerns: No., 12/17/2023 Family History Emphysema: Father. Schizoaffective disorder: Mother. Immunizations Vaccine Date Status Comments influenza virus vaccine, inactivated - Not Given Patient Refuses SARS-CoV-2 mRNA (domitila 5y-11y) vac - Not Given Patient Refuses Normal [facility] Comment on above: Result Comment: Elec tronically Signed By: Millie Florentino\.br\Date and Time Signed: 12/17/23 15:12 EDT Provider Letteron 12-17-2023 Provider Letter December 17, 2023 JESS BACON [address] [place] [id number] : 1955 To Whom It May Concern, Jess may work no more than 8 hours per day. Please continue to not use vibrating hand tools. This will continue through December, January, and February 2024. If you have any questions please do not hesitate to contact my office. Date of Illness: From: December 2023 To: February 2024 Sincerely, JAH Jon [facility] [address] [address] [facility] Consultation Noteon 11-10-19 Consultation Note [id number] .[id number] [facility] Family Medicine Office/Clini c Noteon 10-31-2023 Family Medicine Office/Clinic Note Chief Complaint diagnosed with bronchitis 10/25- not feeling better HPI Staff 67 year old female presents with bronchitis that is worsening, pain in ribs when coughing was seen at [facility] 10/25 and was diagnosed with bronchitis was given steroids- has 2 more days but does not feel any better History of Present Illness Reviewed and agree with above documented HPI by medical claims specialist. Portions of this record may have been created with voice recognition artificial intelligence software, specifically Reble, Moolta and or Still[employer]ure. Substitutions may have occurred due to the inherent limitations of voice recognition and artificial intelligence software. Patient is a 67-year-old female who presents to convenient care, for sinus congestion, sore throat, and a nonproductive cough. Patient states symptom has been going on for over 2-1/2 weeks, states this past Wednesday she was seen at an urgent care in [facility], states she was diagnosed with bronchitis was given steroids and Medrol Dosepak, states she been taking them, past 2 days still not feeling better she continues with sinus congestion, now she is having sinus headache, the cough continues to be nonproductive, constant not worsening at night, states she has a history of sinus infections, it has been a while since her last episode of bronchitis, states she does not smoke, vape, or has a history of asthma or pneumonia. Patient states she been eating and drinking, has her sense of taste and smell intact, some discomfort swallowing, states she is not concerned about being exposed to COVID-19 or influenza. Patient denies any worsening headache, dizziness, nausea or vomiting, difficulty swallowing, productive cough or any cough, chest pain, dyspnea exertion, or weakness. Review of Systems PHQ Score Initial Depression Screen Score: 0 SCORE Physical Exam Vitals & Measurements T: 36.6 ?C(Oral) HR: 77(Peripheral) BP: 120/80 SpO2: 96% HT: 62 in HT: 158 cm WT: 53 kg WT: 116.6 lb BMI: 21.23 General: Well developed, well nourished, in no acute distress. Patient does appear ill but not septic. No respiratory disorders noted. Patient answers questions appropriately and in complete sentences, follows commands appropriately. Facial droop, slurred speech, difficulty swallowing is noted. Head: Normocephalic/atrauma tic. Bilateral frontal sinus tenderness and pressure with palpation. No maxillary sinus tenderness. No facial swelling or cellulitis. Eyes: Pupils equal, round, and reactive to light. Conjunctivae and sclerae normal, Ears: Bilateral TMs are bulging without any signs otitis media otitis externa. Hearing is intact. Nose: No deformity, discharge, inflammation, or lesions Mouth: Mucous membranes moist. Normal oropharynx, and posterior pharynx with erythema and without exudates or lesions. No trismus. No difficulty swallowing. Neck: Neck supple. No masses or palpable cervical nodes. Trachea midline. Lungs: Normal respiratory effort and clear to auscultation throughout, no wheezing, rales, crackles, rhonchi, or decreased breath sounds. Cardio: regular rate and rhythm, no murmur. No chest wall tenderness. Abdomen: Soft, nondistended, nontender, normal bowel sounds in all 4 quadrants. No pain with deep palpation, left or right CVA tenderness, suprapubic pain, or lumbar back pain. Extremity: Patient is able to move all 4 extremities equally without pain or weakness. Neurologic: Grossly normal Skin: No rashes, ulcerations, or suspicious lesions Lymph Nodes: no lad Mental Status: alert, active Assessment/Plan Patient prefer no swabs, breathing treatment, chest imaging done at this time. 67-year-old female presents to [facility] care, for acute frontal sinusitis and acute bronchitis, history of sinus infections and bronchitis, close to 3 weeks ago, has been taking tynr-jfs-vtszpha medication without any relief, did appear ill but not septic, no respiratory distress or difficulty swallowing is noted. He was given a prescription of Zithromax, prefer no prescription for cough or prednisone at this time. Patient was instructed take rfrr-dgn-snvdncv ibuprofen Tylenol as needed for body aches, fevers, headaches. Drink plenty water stay hydrated. Given a work excuse note. Follow-up with primary care provider. 1. Acute frontal sinusitis (J01.10: Acute frontal sinusitis, unspecified) See above 2. Acute bronchitis (J20.9: Acute bronchitis, unspecified) See above Follow-up With When Contact Information Carlos BARRON, Millie Gallagher, JO, MED Additional Instructions: Patient Education Acute Bronchitis, Adult, Dnww-qa-Bmef Sinus Infection, Adult, Jpqs-ae-Djac Problem List/Past Medical History Ongoing Acute bronchitis Acute frontal sinusitis Anxiety disorder Breast cancer screening by mammogram Dupuytrens contracture Ingrown right big toenail Lower extremity neuropathy Onychomycosis Osteoarthritis of lumbosacral spine Radiculopathy Right elbow pain Sore t (more content not included)... Normal [facility] Comment on above: Result Comment: Elec tronically Signed By: MAYRA YU, PHILLIP\.br\Date and Time Signed: 10/31/23 14:12 EST Patient Educationon 10-31-19 Patient Education Infectious Disease Sinus Infection, Adult A sinus infection is soreness and swelling (inflammation) of your sinuses. Sinuses are hollow spaces in the bones around your face. They are located: ? Around your eyes. ? In the middle of your forehead. ? Behind your nose. ? In your cheekbones. Your sinuses and nasal passages are lined with a fluid called mucus. Mucus drains out of your sinuses. Swelling can trap mucus in your sinuses. This lets germs (bacteria, virus, or fungus) grow, which leads to infection. Most of the time, this condition is caused by a virus. What are the causes? ? Allergies. ? Asthma. ? Germs. ? Things that block your nose or sinuses. ? Growths in the nose (nasal polyps). ? Chemicals or irritants in the air. ? A fungus. This is rare. What increases the risk? ? Having a weak body defense system (immune system). ? Doing a lot of swimming or diving. ? Using nasal sprays too much. ? Smoking. What are the signs or symptoms? The main symptoms of this condition are pain and a feeling of pressure around the sinuses. Other symptoms include: ? Stuffy nose (congestion). This may make it hard to breathe through your nose. ? Runny nose (drainage). ? Soreness, swelling, and warmth in the sinuses. ? A cough that may get worse at night. ? Being unable to smell and taste. ? Mucus that collects in the throat or the back of the nose (postnasal drip). This may cause a sore throat or bad breath. ? Being very tired (fatigued). ? A fever. How is this diagnosed? ? Your symptoms. ? Your medical history. ? A physical exam. ? Tests to find out if your condition is short-term (acute) or long-term (chronic). Your doctor may: ? Check your nose for growths (polyps). ? Check your sinuses using a tool that has a light on one end (endoscope). ? Check for allergies or germs. ? Do imaging tests, such as an MRI or CT scan. How is this treated? Treatment for this condition depends on the cause and whether it is short-term or long-term. ? If caused by a virus, your symptoms should go away on their own within 10 days. You may be given medicines to relieve symptoms. They include: ? Medicines that shrink swollen tissue in the nose. ? A spray that treats swelling of the nostrils. ? Rinses that help get rid of thick mucus in your nose (nasal saline washes). ? Medicines that treat allergies (antihistamines). ? Szod-quz-usoqtpy pain relievers. ? If caused by bacteria, your doctor may wait to see if you will get better without treatment. You may be given antibiotic medicine if you have: ? A very bad infection. ? A weak body defense system. ? If caused by growths in the nose, surgery may be needed. Follow these instructions at home: Medicines ? Take, use, or apply hwrz-mjk-wtywwbu and prescription medicines only as told by your doctor. These may include nasal sprays. ? If you were prescribed an antibiotic medicine, take it as told by your doctor. Do not stop taking it even if you start to feel better. Hydrate and humidify ? Drink enough water to keep your pee (urine) pale yellow. ? Use a cool mist humidifier to keep the humidity level in your home above 50%. ? Breathe in steam for 10?15 minutes, 3?4 times a day, or as told by your doctor. You can do this in the bathroom while a hot shower is running. ? Try not to spend time in cool or dry air. Rest ? Rest as much as you can. ? Sleep with your head raised (elevated). ? Make sure you get enough sleep each night. General instructions ? Put a warm, moist washcloth on your face 3?4 times a day, or as often as told by your doctor. ? Use nasal saline washes as often as told by your doctor. ? Wash your hands often with soap and water. If you cannot use soap and water, use hand cigarette carton sealer. ? Do not smoke. Avoid being around people who are smoking (secondhand smoke). ? Keep all follow-up visits. Contact a doctor if: ? You have a fever. ? Your symptoms get worse. ? Your symptoms do not get better within 10 days. Get help right away if: ? You have a very bad headache. ? You cannot stop vomiting. ? You have very bad pain or swelling around your face or eyes. ? You have trouble seeing. ? You feel confused. ? Your neck is stiff. ? You have trouble breathing. These symptoms may be an emergency. Get help right away. Call 911. ? Do not wait to see if the symptoms will go away. ? Do not drive yourself to the hospital. Summary ? A sinus infection is swelling of your sinuses. Sinuses are hollow spaces in the bones around your face. ? This condition is caused by tissues in your nose that become inflamed or swollen. This traps germs. These can lead to infection. ? If you were prescribed an antibiotic medicine, take it as told by your doctor. Do not stop taking it even if you start to feel better. ? Keep all follow-up visits (more content not included)... Normal [facility] Patient Letter FTon 2023 Patient Letter [facility] [address] [place] [address] October 29, 2023 JESS BACON [address] [place] [id number] : 1955 Please excuse JESS BACON from work . Date and/or Time of Absence: From: 10/29/23 May return to work on: 11/01/23 Restrictions: None Comments: Please excuse due to an acute illness. Provider Signature: Phillip Nunez PA-C [address] [place] [address] [place] [address] [facility] Ambulatory Visit Summaryon 0 09-30-2023 Ambulatory Visit Summary JERAMIE BACONOMI Sola :1955 Visit Date:09/30/2023 Ambulatory Visit Instructions Your Diagnosis Trigger ring finger of right hand Ingrown right big toenail BMI 22.0-22.9, adult Non-smoker Your Care Team Attending Physician - Millie Florentino Primary Care Physician - Millie Florentino This Is Your Medications List Misc Prescription (Compression stockings) cholecalciferol (Vitamin D3 2000 intl units oral Tab) escitalopram (escitalopram 5 mg oral tablet) meloxicam (meloxicam 7.5 mg Tab) methylPREDNISolone (Medrol 4 mg Tab) polyethylene glycol 3350 (ClearLax) Procedures Performed Appendectomy, Cholecystectomy, Colonoscopy, D (dilation) and C (curettage) of uterus, Partial hysterectomy. Discharge Vitals Heart Rate (Peripheral) 68 Respiratory Rate 18 Blood Pressure 116/74 Height 158.0 cm Height 62 in Weight 55.1 kg Weight 121.22 lb BMI 22.07 What to do next Scheduled Follow-Up Appointments 2023 1:00 PM EDT Where: [facility] Family Medicine [place] Normal [facility] Family Medicine Office/Clini c Noteon 09-30-2023 Family Medicine Office/Clinic Note HPI Staff Jess is a 67 year old female presenting for 3 month follow up Pain characteristics: Pain location: Right elbow with Radiculopathy ([facility] 06/30/23 Medrol dose pack ordered) Intensity: 0 pt states right elbow pain has went away Onset: 1 month Right hand ring finger is becoming tight and finger is staying down and she will pull it back up. States is is slowly getting worse. pt has had this happen to her left hand ring finger and had surgery. pt states she does have Raynaud's and was told she probably shouldn't of had the surgery. Pt doesn't have to have surgery on finger. Pt states stopped taking Escitalopram 2 weeks ago History of Present Illness pt presents today for follow up on right elbow pain. elbow is better. but she has trigger finger of right ring finger. and has an ingrown toenail on right big toe. Review of Systems PHQ Score Initial Depression Screen Score: 0 SCORE ROS - Provider Constitutional: no fever, no chills, no sweats, no fatigue Respiratory: no shortness of breath, no cough, no orthopnea, no wheezing. Cardiovascular: no chest pain, no palpitations, no edema. Neurologic: no headache, no dizziness, no numbness, no weakness. trigger finger pain right ring finger, right big toe nail ingrown Physical Exam Vitals & Measurements HR: 68(Peripheral) RR: 18 BP: 116/74 SpO2: 99% HT: 62 in HT: 158.0 cm WT: 55.1 kg WT: 121.22 lb BMI: 22.07 General: alert, no acute distress ENMT: oral mucosa moist, no pharyngeal erythema or exudate Cardiovascular: regular rate and rhythm, normal peripheral perfusion Respiratory: Lungs CTA, respirations non labored Extremities: no deformity, no trauma Neurological: oriented x 4, LOC appropriate for age, CN II-XII intact, motor strength equal & normal bilaterally, speech normal trigger finger right ring finger, right big toenail ingrown. not infected Assessment/Plan 1. Trigger ring finger of right hand (M65.341: Trigger finger, right ring finger) right trigger finger of ring finger. pt had surgery on left ring finger for the same thing and is no interested in referral to ortho. will order meloxicam and medrol dose pack. all questions answered. Note provided for work for not using vibrating tools. RTC as needed Ordered: meloxicam, 7.5 mg = 1 tab(s), Oral, Daily, # 30 tab(s), Refills(s) 0, Pharmacy: [facility], 158, cm, 09/30/23 11:26:00 EST, Height/Length Dosing, 55.1, kg, 09/30/23 11:26:00 EST, Weight Dosing methylPREDNISolone, = 1 packet(s), Oral, As Directed, as directed on package labeling, X 6 day(s), # 21 tab(s), Refills(s) 0, Pharmacy: [facility] 1429, 158, cm, 09/30/23 11:26:00 EST, Height/Length Dosing, 55.1, kg, 09/30/23 11:26:00 EST, Weight Dosing 2. Ingrown right big toenail (L60.0: Ingrowing nail) right big toe nail ingrown. will refer to Dr. Schultz Ordered: [facility] External Ambulatory Referral 3. BMI 22.0-22.9, adult (Z68.22: Body mass index [BMI] 22.0-22.9, adult) BMI education complete Ordered: meloxicam, 7.5 mg = 1 tab(s), Oral, Daily, # 30 tab(s), Refills(s) 0, Pharmacy: [facility] 1429, 158, cm, 09/30/23 11:26:00 EST, Height/Length Dosing, 55.1, kg, 09/30/23 11:26:00 EST, Weight Dosing methylPREDNISolone, = 1 packet(s), Oral, As Directed, as directed on package labeling, X 6 day(s), # 21 tab(s), Refills(s) 0, Pharmacy: [facility] 1429, 158, cm, 09/30/23 11:26:00 EST, Height/Length Dosing, 55.1, kg, 09/30/23 11:26:00 EST, Weight Dosing 4. Non-smoker (Z78.9: Other specified health status) continue not smoking Ordered: meloxicam, 7.5 mg = 1 tab(s), Oral, Daily, # 30 tab(s), Refills(s) 0, Pharmacy: [facility] 1429, 158, cm, 09/30/23 11:26:00 EST, Height/Length Dosing, 55.1, kg, 09/30/23 11:26:00 EST, Weight Dosing methylPREDNISolone, = 1 packet(s), Oral, As Directed, as directed on package labeling, X 6 day(s), # 21 tab(s), Refills(s) 0, Pharmacy: [facility] 1429, 158, cm, 09/30/23 11:26:00 EST, Height/Length Dosing, 55.1, kg, 09/30/23 11:26:00 EST, Weight Dosing Orders: escitalopram, 10 mg = 1 tab(s), Oral, Daily, X 90 day(s), # 90 tab(s), Refills(s) 3, Pharmacy: [facility] #[id number], 157, cm, 04/23/23 13:50:00 EDT, Height/Length Dosing, 53.2, kg, 04/23/23 13:50:00 EDT, Weight Dosing Follow-up No qualifying data available Problem List/Past Medical History Ongoing Anxiety disorder Breast cancer screening by mammogram Dupuytrens contracture Ingrown right big toenail Lower extremity neuropathy Onychomycosis Osteoarthritis of lumbosacral spine Radiculopathy Right elbow pain Sore throat Spondylosis Syncope Trigger ring finger of right hand Wellness examination Historical No qualifying data Procedure/Surgical History Appendectomy, Cholecystectomy, Colonoscopy, D (dilation) and C (curettage) of uterus, Partial hysterectomy. Medications ClearLax Compression stockings, See Instructions escitalopram 5 mg oral tablet, 5 mg= 1 tab(s), Oral, Daily, 3 refills, Not (more content not included)... Normal [facility] Comment on above: Result Comment: Elec tronically Signed By: Millie Florentino\.br\Date and Time Signed: 09/30/23 11:46 EST Physician Referralon 024 Physician Referral [id number] .[id number] [facility] Provider Letteron 09-30-2023 Provider Letter September 30, 2023 JESS BACON [address] [place] [id number] : 1955 To Whom It May Concern, Jess may work 3 days a week, 8 hour days per week. Please continue to not use vibrating hand tools. This will continue through September, October, and November 2023. If you have any questions please do not hesitate to contact my office. Date of Illness: From: _ September 2023 To: _November 2023 May Return to Work On: Restrictions: _ See Above Comments: _ Sincerely, [address] [address] [facility] Ambulatory Visit Summaryon 1 Ambulatory Visit Summary JESS BACON :1955 Visit Date:06/30/2023 Ambulatory Visit Instructions Your Diagnosis BMI 22.0-22.9, adult Non-smoker Your Care Team Attending Physician - Millie Florentino Primary Care Physician - Millie Florentino This Is Your Medications List Misc Prescription (Compression stockings) cholecalciferol (Vitamin D3 2000 intl units oral Tab) escitalopram (escitalopram 10 mg Tab) escitalopram (escitalopram 5 mg oral tablet) polyethylene glycol 3350 (ClearLax) Procedures Performed Appendectomy, Cholecystectomy, Colonoscopy, D (dilation) and C (curettage) of uterus, Partial hysterectomy. Discharge Vitals Heart Rate (Peripheral) 68 Respiratory Rate 18 Blood Pressure 116/84 Height 158 cm Height 62 in Weight 55.7 kg Weight 122.54 lb BMI 22.31 What to do next Scheduled Follow-Up Appointments Wednesday 3:20 PM EST With: Millie Florentino Where: [place] [phone] \.br\ Medications\.br\ What How Much When Why Instructions\.br\ New Misc Prescription (Compression stockings) See instructions BMI 22.0-22.9, adult Non-smoker wear stocking when on your feet > 8 hours per day Printed Prescription\.br\ Unchanged cholecalciferol (Vitamin D3 2000 intl units oral Tab) 50 Microgram By Mouth Every day\.br\ Unchanged escitalopram (escitalopram 10 mg Tab) 1 Tablets By Mouth Every day Anxiety disorder BMI 21.0-21.9, adult Duration: 90 Days\.br\ Unchanged escitalopram (escitalopram 5 mg oral tablet) 1 Tablets By Mouth Every day Anxiety disorder Sore throat Non-smoker BMI 21.0-21.9, adult\.br\ Unchanged polyethylene glycol 3350 (ClearLax)\.br\ Allergies\.br\ No Known Medication Allergies\.br\ Problems\.br\ Ongoing - Any problem that you are currently receiving treatment for.\.br\ Anxiety disorder\.br\ Breast cancer screening by mammogram\.br\ Dupuytrens contracture\.br\ Onychomycosis\.br\ Osteoarthritis of lumbosacral spine\.br\ Radiculopathy\.br\ Sore throat\.br\ Spondylosis\.br\ Syncope\.br\ Wellness examination\.br\ Patient Survey\.br\ You may receive a survey via text or e-mail asking about your office visit. Please share your experience with us by completing your survey. We appreciate your feedback and thank you for choosing us for your care.\.br\ \.br\ [facility] Family Medicine Office/Clini c Noteon 06-30-2023 Family Medicine Office/Clinic Note HPI Staff Jess is a 67 year old female presenting for visit Pt is on an 8 hour work restriction and work is switching to 12 hours shifts and needs clearance. Pt states she needs clearance to be able to work the 12 hours shifts or she was told that she needs to find a new job. she would like to discuss if working the 12 hours is a good idea if so she does want it to state she can't operate vibrating tools Onset: 1 month right elbow has been bothering her hurts worse when over using arm. History of Present Illness pt presents today to discuss going back to working 12 hour shifts. also having right elbow pain Review of Systems PHQ Score Initial Depression Screen Score: 0 ROS - Provider Constitutional: no fever, no chills, no sweats, no fatigue Respiratory: no shortness of breath, no cough, no orthopnea, no wheezing. Cardiovascular: no chest pain, no palpitations, no edema. Neurologic: no headache, no dizziness, no numbness, no weakness. leg pain, back pain, right elbow pain Physical Exam Vitals & Measurements HR: 68(Peripheral) RR: 18 BP: 116/84 SpO2: 96% HT: 62 in HT: 158 cm WT: 55.7 kg WT: 122.54 lb BMI: 22.31 General: alert, no acute distress ENMT: oral mucosa moist, no pharyngeal erythema or exudate Cardiovascular: regular rate and rhythm, normal peripheral perfusion Respiratory: Lungs CTA, respirations non labored Extremities: no deformity, no trauma Neurological: oriented x 4, LOC appropriate for age, CN II-XII intact, motor strength equal & normal bilaterally, speech normal Assessment/Plan 1. Right elbow pain (M25.521: Pain in right elbow) pt c/o right elbow pain for a few weeks. will send medrol dose pack. RTC 3 months 2. Radiculopathy (M54.10: Radiculopathy, site unspecified) pt continues having back and lower leg pain. order for compression stockings provided pt to wear them when working 3. Lower extremity neuropathy (G57.90: Unspecified mononeuropathy of unspecified lower limb) pt has lower leg pain especially after being on her feet for too long. pt is being forced to work 12 hour shift. note provided to allow her to work 12 hours as long as the 12 hour shifts are not back to back. she also should not use vibrating equipment. 4. BMI 22.0-22.9, adult (Z68.22: Body mass index [BMI] 22.0-22.9, adult) BMI eduction complete Ordered: methylPREDNISolone, = 1 packet(s), Oral, As Directed, as directed on package labeling, X 6 day(s), # 21 tab(s), Refills(s) 0 Misc Prescription, Compression stockings, See Instructions, 1 EA, 0, wear stocking when on your feet > 8 hours per day, Supply 5. Non-smoker (Z78.9: Other specified health status) continue not smoking Ordered: methylPREDNISolone, = 1 packet(s), Oral, As Directed, as directed on package labeling, X 6 day(s), # 21 tab(s), Refills(s) 0 Misc Prescription, Compression stockings, See Instructions, 1 EA, 0, wear stocking when on your feet > 8 hours per day, Supply Follow-up No qualifying data available Problem List/Past Medical History Ongoing Anxiety disorder Breast cancer screening by mammogram Dupuytrens contracture Lower extremity neuropathy Onychomycosis Osteoarthritis of lumbosacral spine Radiculopathy Right elbow pain Sore throat Spondylosis Syncope Wellness examination Historical No qualifying data Procedure/Surgical History Appendectomy, Cholecystectomy, Colonoscopy, D (dilation) and C (curettage) of uterus, Partial hysterectomy. Medications ClearLax Compression stockings, See Instructions escitalopram 10 mg Tab, 10 mg= 1 tab(s), Oral, Daily, 3 refills escitalopram 5 mg oral tablet, 5 mg= 1 tab(s), Oral, Daily, 3 refills Medrol 4 mg Tab, 1 packet(s), Oral, As Directed Vitamin D3 2000 intl units oral Tab, 50 mcg, Oral, Daily Allergies No Known Medication Allergies Social History Alcohol - Denies Alcohol Use, 11/30/2022 Household alcohol concerns: No., 04/23/2023 Substance Abuse - Denies Substance Abuse, 11/30/2022 Household substance abuse concerns: No., 11/30/2022 Tobacco - Denies Tobacco Use, 11/30/2022 Never (less than 100 in lifetime) Tobacco Use:. Never Smokeless Tobacco Use:. Household tobacco concerns: No., 06/30/2023 Family History Emphysema: Father. Schizoaffective disorder: Mother. Immunizations Vaccine Date Status Comments influenza virus vaccine, inactivated - Not Given Patient Refuses SARS-CoV-2 mRNA (tocandyeran 5y-11y) vac - Not Given Patient Refuses [facility] Comment on above: Result Comment: Elec tronically Signed By: Millie Florentino\.br\Date and Time Signed: 06/30/23 15:13 EDT Provider Letteron 06-30-2023 Provider Letter [address] [place] [id number] June 30, 2023 JESS BACON [address] [place] [id number] : 1955 To Whom It May Concern, Jess may work two 12 hour shifts per week. As long as the 12 hour shifts are not back to back. Please continue to not use vibrating hand tools. This will continue through June, July, and August. If you have any questions please do not hesitate to let me know. Sincerely, JAH Houser [facility] Vital Signs Date Time Vital Sign Value Performing Clinician Facility 05-27-2024 14:05-0400 Body height 156.21 cm MD Luisito Roth Work Phone: [facility] 05-27-2024 14:05-0400 Body mass index (BMI) [Ratio] 21.4 kg/m2 MD Luisito Roth Work Phone: [facility] 05-27-2024 14:05-0400 Body temperature 98.2 [degF] MD Luisito Roth Work Phone: [facility] 05-27-2024 14:05-0400 Body weight 52.16 kg MD Luisito Roth Work Phone: [facility] 05-27-2024 14:05-0400 Diastolic blood pressure 69 mm[Hg] MD Luisito Roth Work Phone: [facility] 05-27-2024 14:05-0400 Heart rate 56 /min MD Luisito Roth Work Phone: [facility] 05-27-2024 14:05-0400 SaO2% (BldA) [Mass fraction] 98 % MD Luisito Roth Work Phone: [facility] 05-27-2024 14:05-0400 Systolic blood pressure 128 mm[Hg] MD Luisito Roth Work Phone: [facility] 10-29-2023 13:26-0500 Blood Pressure Location PHILLIP LLANESTIZ [facility] 10-29-2023 13:26-0500 Body temperature 97.88 [degF] PHILLIP NUNEZ [facility] 10-29-2023 13:26-0500 Diastolic blood pressure 80 mm[Hg] PHILLIP NUNEZ [facility] 10-29-2023 13:26-0500 Heart rate 77 /min PHILLIP NUNEZ [facility] 10-29-2023 13:26-0500 SaO2% (BldA) [Mass fraction] 96 % [place] NUN[facility] 10-29-2023 13:26-0500 Systolic blood pressure 120 mm[Hg] PHILLIP NUNEZ [facility] Encounters Encounter Date Encounter Type Care Provider Facility Start: 06-01-2024 ambulatory Millie L Carlos Facility: [facility] [place] Start: 05-29-2024 End: 05-29-2024 ambulatory Millie L Carlos Facility:[facility] [place] Start: 05-27-2024 End: 05-27-2024 ambulatory MD Luisito Roth Work Phone: [facility] Work Phone: Start: 05-27-2024 End: 05-27-2024 Patient encounter procedure MD Luisito Roth Work Phone: [facility] Work Phone: Start: 05-12-2024 End: 05-12-2024 ambulatory Millie L Acrlos Facility:[facility] [place] Start: 04-21-2024 End: 04-21-2024 ambulatory [facility] Start: 04-19-2024 End: 04-19-2024 ambulatory Millie L Carlos Facility:[facility] [place] Start: 04-12-2024 End: 04-12-2024 ambulatory Imllie L Carlos Facility:[facility] [place] Start: 04-06-2024 End: 04-06-2024 ambulatory Luisito Roth Facility:[facility] [place] Start: 03-31-2024 End: 05-01-2024 ambulatory Luisito Roth Facility:CD:[id number] Start: 03-29-2024 ambulatory Millie L Carlos Facility: [facility] [place] Start: 03-28-2024 Evaluation and management of inpatient [facility] Start: 03-27-2024 Evaluation and management of inpatient MARY GARCIA [facility] Start: 03-26-2024 Evaluation and management of inpatient [facility] Start: 03-25-2024 Evaluation and management of inpatient MARY GARCIA [facility] Start: 03-25-2024 End: 03-30-2024 Evaluation and management of inpatient SUDHIR CHRISTINE [facility] Start: 03-17-2024 End: 03-17-2024 ambulatory Millie L Carlos Facility:[facility] [place] Start: 02-08-2024 End: 02-08-2024 ambulatory Millie L Carlos Facility:[facility] [place] Start: 01-20-2024 End: 01-20-2024 ambulatory LARISSA A LESLEY Not Available Start: 12-31-2023 End: 12-31-2023 ambulatory LAUREANO AMARAL Not Available Start: 12-17-2023 End: 12-17-2023 ambulatory Millie L Carlos Facility:[facility] [place] Start: 10-29-2023 End: 10-29-2023 ambulatory PHILLIP NUNEZ Facility: [facility] Start: 10-29-2023 End: 10-29-2023 Patient encounter procedure PHILLIP NUNEZ [facility] Start: 09-30-2023 End: 09-30-2023 ambulatory Millie L Carlos Facility:[facility] [place] Start: 06-30-2023 End: 06-30-2023 ambulatory Millie L Carlos Facility:[facility] [place] Start: 07-17-2022 End: 07-17-[address] GINA CULVER Facility:[facility] Procedures Date Procedure Procedure Detail Performing Clinician Start: 05-27-2024 X-ray of lumbar spin e, four or more views MD Luisito Roth Work Phone: Start: 04-21-2024 Follow-up visit Follow-up CRIS POLO Appendectomy PHILLIP NUNEZ Cholecystectomy PHILLIP LYMAN Colonoscopy PHILLIP NUNEZ Comment on above: 01/24 normal repeat 5 years no polyps Dilation and curetta ge of uterus PHILLIP NUNEZ Partial hysterectomy VIMAL NUNEZ Plan of Treatment Date Care Activity Detail Author Patient Education Low back pain in adults [facility] Work Phone: Immunizations Immunization Date Immunization Notes Care Provider Ginette marques NEGATED: Highlighted row has not occurred!11-30-2022 influenza virus vaccine, unspecified formulation PHILLIP NUNEZ [facility] NEGATED: Highlighted row has not occurred!11-30-2022 SARS-CoV-2 mRNA (tozinameran 5y-11y) vaccine PHILLIP NUNEZ [facility] Payers Date Payer Category Payer Self-pay [id number] 2024 Unknown [id number] 2023 Unknown [id number] 2023 Unknown [id number] 1959 Unknown [id number] 1955 Unknown [id number] 2.16.84 0.1.668199.3.579.2.593 1955 Unknown [id number] 2.16.84 0.1.043640.3.579.2.9 1955 Unknown [id number] 2.16.84 0.1.154554.3.579.2.1259 1955 Unknown [id number] 2.16.84 0.1.330315.3.579.2.1259 1955 Unknown [id number] 2.16.84 0.1.284683.3.579.2.1259 1955 Unknown [id number] 2.16.8 40.1.810696.3.579.2.727 1955 Unknown [id number] 2.16.8 40.1.653955.3.579.2.727 1955 Unknown [id number] 2.16.8 40.1.527588.3.579.2.727 1955 Unknown [id number] 2.16.8 40.1.384343.3.579.2.727 1955 Unknown [id number] 2.16.8 40.1.161026.3.579.2.727 1955 Unknown [id number] 2.16.8 40.1.640626.3.579.2.72 1955 Unknown [id number] 2.16.8 40.1.079977.3.579.2.72 1955 Unknown [id number] 2.16.8 40.1.968483.3.579.2.727 1955 Unknown [id number] 2.16.8 40.1.047788.3.579.2.727 1955 Unknown [id number] 2.16.8 40.1.643632.3.579.2.72 1955 Unknown [id number] 2.16.8 40.1.143108.3.579.2.727 1955 Unknown [id number] 2.16.8 40.1.891371.3.579.2.727 1955 Unknown [id number] 2.16.8 40.1.165173.3.579.2.727 1955 Unknown [id number] 2.16.8 40.1.838788.3.579.2.727 Medicare Medicare [id number] 17c [id number] Unknown [id number] 2.16.8 40.1.012967.3.579.2.531 Social History Date Type Detail Facility Start: 09-01-2018 End: 10-29-2023 Tobacco smoking status Never smoked tobacco (finding) [facility] Tobacco smoking status Never [facility] Sex Assigned At Female [facility] Start: 1955 Sex Assigned At Female F [facility] Functional Status Date Assessment Result Facility 10-29-2023 Functional Status N/A [facility] Clinical Notes 03-25-2024 to 04-21-2024 Note Date & Type Note Facility 04-21-2024 Note Cardiology Follow Up Progress Note Chief Complaint: Follow-up ([facility] Follow up/Concerns: No further cardiac concerns/symptoms. ) HPI: Jess Bacon is a 68 y.o. female who with a past medical history including overactive bladder, anxiety, vitamin D deficiency, and recent NSTEMI who presents to [place] for post hospitalization follow up. Patient was transferred to [facility] from outside hospital after presenting with complaints of abdominal pain, nausea, vomiting, and diarrhea x 8 times per day. She was found to be dehydrated, and fluid resuscitation was performed. Her troponin was found to be elevated, show she was transferred for further evaluation/management. [facility], patient was found to have a significantly elevated troponin. She underwent coronary angiography, and her coronary arteries were without significant coronary artery disease. NSTEMI was thought to be secondary to acute illness, hypovolemia. She presents today for follow-up. She denies any cardiac complaints or concerns. She denies any chest pain. She denies any shortness of breath. She denies any lower extremity edema, orthopnea, or paroxysmal nocturnal dyspnea. Again, she adamantly denies any current or previous history of chest pain. Demonstrated normal EF with no regional wall motion abnormality. Cardiology ROS: 10 point ROS is performed and is negative unless otherwise specified in HPI. Medications Current Outpatient Medications on File Prior to Visit Medication Sig Dispense Refill cholecalciferol, vitamin D3, (Vitamin D3) 50 mcg (2,000 unit) capsule Take 3 capsules by mouth in the morning. oxybutynin XL (Ditropan-XL) 10 mg 24 hr tablet Take 10 mg by mouth in the morning. No current facility-administered medications on file prior to visit. Allergies Patient has no known allergies. Physical Exam VITAL SIGNS: BP 115/63 (BP Location: Left arm, Patient Position: Sitting, BP Cuff Size: Adult) Pulse 78 Resp 16 Ht 1.549 m (5' 1 ) Wt 52.6 kg (116 lb) SpO2 98% BMI 21.92 kg/m??? Constitutional: Well developed, Well nourished, No acute distress, Non-toxic appearance. HENT: Normocephalic, Atraumatic, Bilateral external ears have normal appearance, Nose appears normal, nares are patent. Eyes: PERRLA, EOMI, Conjunctiva normal, No discharge. Neck: Normal range of motion, No tenderness, Supple, No stridor. No cervical lymphadenopathy noted. Cardiovascular: Normal heart rate, Normal rhythm, No murmurs, No rubs, No gallops. Thorax & Lungs: Normal breath sounds, No respiratory distress, No wheezing, No chest tenderness to palpation. Abdomen: Bowel sounds normal, Soft, Nontender, No masses, No pulsatile masses. Skin: Warm, Dry, No erythema, No rash. Back: No tenderness, No CVA tenderness. Extremities: Intact distal pulses, No edema, No tenderness, No cyanosis, No clubbing. Musculoskeletal: Grossly normal strength in extremities Neurologic: Alert & oriented x 3, no gross focal neurological deficits Psychiatric: Affect normal, Judgment normal, Mood normal. EKG results: Encounter Date: 03/25/24 ECG 12 lead Result Value Ventricular Rate 67 Atrial Rate 67 IN Interval 142 QRS DURATION 70 QT Interval 448 QTC CALCULATION(BAZETT) 473 P [place] 83 R-[place] -5 T Wave [place] -22 Impression Normal sinus rhythm Possible Inferior infarct (cited on or before 25-MAR-2024) Abnormal ECG When compared with ECG of 25-MAR-2024 23:28, (unconfirmed) Nonspecific T wave abnormality has replaced inverted T waves in Inferior lead Nonspecific T wave abnormality has replaced inverted T waves in Lateral Confirmed by Anderson Stiles ([id number]) on 03/26/2024 5:36:54 PM Echo results: Complete Echo (TTE) w/wo Imaging Agent, Strain, 3D, Bubble Study Result Date: 03/27/2024 1 1 [facility] Heart Station [address] [place], [place] [id number] (fax) Echocardiogram-[facility] Name: JESS BACON Study Date: 03/27/2024 07:59 AM B/P: 109 mmHg/66 mmHg HR: Date of : 1955 Location: [facility] Height: 61 in. Age: 68 year(s) Patient Room: 3140 Weight: 117 lb. Gender: Female Patient Status: InPt BSA: 1.5 m2 Indication: Non-STEMI, elevated troponins Examination: Echocardiogram (Complete), Lumason Contrast Image Quality: Fair Patient Consent: Procedure explained to patient Exam Details Contrast: I.V. dose of Lumason Conclusions Left Ventricle: The left ventricle is normal size. Global left ventricular systolic function is at lower limits of normal. The EF is 55 % visually. Left ventricular wall thickness is normal. No regional wall motion abnormality. Normal diastolic function. Right Ventricle: The right ventricle is normal in size. Normal right ventricular systolic function. Doppler studies suggest normal right sided pressures. Left Atrium: The left atrium is normal in size. Overall Conclusions: Due to suboptima (more content not included)... [facility] 04-19-2024 Note Nurse Consultation [place]te Reason for Visit Here for ear wash, left ear cleared of the impacted wax, patient said she could hear better after the cleaning. Right ear remained clear from last week Medications aspirin, 81 mg, Oral, Daily Compression stockings, See Instructions Debrox, See Instructions MiraLax, 17 gm, Oral, Daily oxybutynin 10 mg ER Tab, See Instructions, 3 refills Vitamin D3 2000 intl units oral Tab, 50 mcg, Oral, Daily Allergies No Known Medication Allergies Immunizations Vaccine Date Status Comments influenza virus vaccine, inactivated - Not Given Patient Refuses SARS-CoV-2 mRNA (toreginon 5y-11y) vac - Not Given Patient Refuses [facility] 04-12-2024 Note Nurse Consultation N ote Reason for Visit Here for earwash, been using drops to soften the wax, couldn't get cerumen out of either ear, left ear can see through just some wax in the canal and right ear wax too far back and wouldn't move out Advised patient to continue with the drops and come back next week to try again Medications aspirin, 81 mg, Oral, Daily Compression stockings, See Instructions Debrox, See Instructions MiraLax, 17 gm, Oral, Daily oxybutynin 10 mg ER Tab, See Instructions Vitamin D3 2000 intl units oral Tab, 50 mcg, Oral, Daily Allergies No Known Medication Allergies Immunizations Vaccine Date Status Comments influenza virus vaccine, inactivated - Not Given Patient Refuses SARS-CoV-2 mRNA (domitila 5y-11y) vac - Not Given Patient Refuses [facility] 04-06-2024 Note Patient Education Infectious Disease Gastritis, Adult Gastritis is inflammation of the stomach. There are two kinds of gastritis: ? Acute gastritis. This kind develops suddenly. ? Chronic gastritis. This kind is much more common. It develops slowly and lasts for a long time. Gastritis happens when the lining of the stomach becomes weak or gets damaged. Without treatment, gastritis can lead to stomach bleeding and ulcers. What are the causes? This condition may be caused by: ? An infection. ? Drinking too much alcohol. ? Certain medicines. These include steroids, antibiotics, and some dnnm-mzi-wcglksb medicines, such as aspirin or ibuprofen. ? Having too much acid in the stomach. ? Having a disease of the stomach. Other causes may include: ? An allergic reaction. ? Some cancer treatments (radiation). ? Smoking cigarettes or the use of products that contain nicotine or tobacco. In some cases, the cause of this condition is not known. What increases the risk? ? Having a disease of the intestines. ? Having a disease in which the body's immune system attacks the body (autoimmune disease), such as Crohn's disease. ? Using aspirin or ibuprofen and other NSAIDs to treat other conditions, such as heart disease or chronic pain. ? Stress. What are the signs or symptoms? Symptoms of this condition include: ? Pain or a burning sensation in the upper abdomen. ? Nausea. ? Vomiting. ? An uncomfortable feeling of fullness after eating. ? Weight loss. ? Bad breath. ? Blood in your vomit or stool (feces). In some cases, there are no symptoms. How is this diagnosed? This condition may be diagnosed based on your medical history, a physical exam, and tests. Tests may include: ? Your medical history and a description of your symptoms. ? A physical exam. ? Tests. These can include: ? Blood tests. ? Stool tests. ? A test in which a thin, flexible instrument with a light and a camera is passed down the esophagus and into the stomach (upper endoscopy). ? A test in which a tissue sample is removed to look at it under a microscope (biopsy). How is this treated? This condition may be treated with medicines. The medicines that are used vary depending on the cause of the gastritis. ? If the condition is caused by a bacterial infection, you may be given antibiotic medicines. ? If the condition is caused by too much acid in the stomach, you may be given medicines called H2 blockers, proton pump inhibitors, or antacids. Treatment may also involve stopping the use of certain medicines such as aspirin or ibuprofen and other NSAIDs. Follow these instructions at home: Medicines ? Take nbjd-zks-qceinmv and prescription medicines only as told by your health care provider. ? If you were prescribed an antibiotic medicine, take it as told by your health care provider. Do not stop taking the antibiotic even if you start to feel better. Alcohol use ? Do not drink alcohol if: ? Your health care provider tells you not to drink. ? You are , may be , or are planning to become . ? If you drink alcohol: ? Limit your use to: ? 0?1 drink a day for women. ? 0?2 drinks a day for men. ? Know how much alcohol is in your drink. In the [place] one drink equals one 12 oz bottle of beer (355 mL), one 5 oz glass of wine (148 mL), or one 1? oz glass of hard liquor (44 mL). General instructions ? Eat small, frequent meals instead of large meals. ? Avoid foods and drinks that make your symptoms worse. ? Talk with your health care provider about ways to manage stress, such as getting regular exercise or practicing deep breathing, meditation, or yoga. ? Do not use any products that contain nicotine or tobacco. These products include cigarettes, chewing tobacco, and vaping devices, such as e-cigarettes. If you need help quitting, ask your health care provider. ? Drink enough fluid to keep your urine pale yellow. ? Keep all follow-up visits. This is important. Contact a health care provider if: ? Your symptoms get worse. ? Your abdominal pain gets worse. ? Your symptoms return after treatment. ? You have a fever. Get help right away if: ? You vomit blood or a substance that looks like coffee grounds. ? You have black or dark red stools. ? You are unable to keep fluids down. These symptoms may represent a serious problem that is an emergency. Do not wait to see if the symptoms will go away. Get medical help right away. Call your local emergency services (911 in the [place] Do not drive yourself to the hospital. Summary ? Gastritis is inflammation of the lining of the stomach that can occur suddenly (acute) or develop slowly over time (chronic). ? This condition is diagnosed with a medical history, a physical exam, or tests. ? This condition may be treated with medicines to treat infection or medicines to reduce the amount (more content not included)... [facility] 03-30-2024 Note Hospital Medicine Discharge Summary Final Discharge Diagnosis: NSTEMI (non-ST elevated myocardial infarction) (CMS/[facility]) Type II demand ischemia Gastroenteritis Overactive bladder Admission Diagnosis: NSTEMI (non-ST elevated myocardial infarction) (CMS/HCC) [I21.4] Hospital course: Patient is a 68-year-old female with overactive bladder, anxiety, vitamin D deficiency, presented from [facility] with abdominal pain, nausea/vomiting and diarrhea, she was found to be dehydrated and started on IV fluids. She was subsequently found to have elevated troponin, therefore she was transferred to [facility] due to concern for NSTEMI. EKG on admission showed normal sinus rhythm, concern for inferior infarct. Peak troponin at 3.5. GI evaluated the patient and recommended no urgent intervention. TTE performed on 03/27/2024 showed EF 55%, no wall motion abnormalities, normal right-sided pressures. Stress test performed on 03/28/2024 showed basal inferior, basal inferolateral, mid inferior, mid inferolateral, apical inferior and apical lateral wall segments show moderate reduction in the myocardium. Coronary angiogram was performed on 03/29/2024, which showed relatively normal coronary arteries. 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 Cardiology recommended starting metoprolol for myocardial bridging. Patient's blood pressure and heart rate is borderline. She is recommended to follow-up with cardiology and PCP regarding starting metoprolol on outpatient basis. On The day of discharge, patient was ambulating well. She was eating regular diet without any complaints. Left wrist cardiac catheterization access site without any infection or hematoma. Dear Dr. Gonzalez, [employer], Jess is advised to follow up with you within 1-2 weeks. Follow-up with: Cardiologyand PCP Scheduled appointments: Future Appointments Date Time Provider Department Center 04/14/2024 3:40 PM Cris Polo MD CARD [facility] Your medication list CONTINUE taking these medications Instructions Last Dose Given Next Dose Due carbamide peroxide 6.5 % otic solution Commonly known as: Debrox oxybutynin XL 10 mg 24 hr tablet Commonly known as: Ditropan-XL Vitamin D3 50 mcg (2,000 unit) capsule Generic drug: cholecalciferol (vitamin D3) Jess has No Known Allergies. Disposition: Home or Self Care () Discharge Condition: Good Code Status: Full Code Diagnostic Results Hematology: Results from last 7 days Lab Units 03/30/24 0510 03/29/24 0547 03/26/24 0511 03/25/24 2311 WBC AUTO 10*3/uL 6.22 5.41 < > 8.24 HEMOGLOBIN g/dL 14.0 13.9 < > 14.2 HEMATOCRIT % 42.4 42.8 < > 44.6 MCV fL 86.7 89.4 < > 91.8 PLATELETS AUTO 10*3/uL 188 182 < > 201 INR -- -- -- 1.11* < > = values in this interval not displayed. Chemistry: Results from last 7 days Lab Units 03/30/24 0510 03/29/24 0546 03/28/24 0458 03/27/24 0535 03/25/24 2311 SODIUM mmol/L 138 140 140 < > 139 POTASSIUM mmol/L 4.3 4.8 4.3 < > 3.8 CHLORIDE mmol/L 103 105 106 < > 107 CO2 mmol/L 30 30 29 < > 24 BUN mg/dL 18 16 17 < > 12 CREATININE mg/dL 0.65 0.76 0.71 < > 0.68 GLUCOSE mg/dL 91 100 92 < > 105* MAGNESIUM mg/dL -- -- -- -- 2.0 CALCIUM mg/dL 9.0 9.1 8.7 < > 8.6 PHOSPHORUS mg/dL -- -- -- -- 3.1 < > = values in this interval not displayed. Results from last 7 days Lab Units 03/30/24 0510 03/29/24 0546 03/28/24 0458 03/27/24 0535 03/25/24 2311 AST U/L 49* 31 16 < > 32 ALT U/L 45 24 13 < > 21 ALK PHOS U/L 36 34 32* < > 35 BILIRUBIN TOTAL mg/dL 0.6 0.7 0.6 < > 0.8 BILIRUBIN DIRECT mg/dL -- -- -- -- 0.1 < > = values in this interval not displayed. Test Results Pending At Discharge: Diet at the time of discharge: regular diet Nutrition Screen Activity: Patient currently has no discharge activity orders Objective Blood pressure 127/59, pulse 83, temperature 35.7 ???C (96.3 ???F), temperature source Temporal, resp. rate 18, height 1.549 m (5' 1 ), weight 53.1 kg (117 lb 1 oz), SpO2 98 %. General: Alert and oriented x3. Cardiology: Normal rate, regular rhythm. Lungs: Clear to auscultation, no wheezes, rales or rhonchi, symmetric air entry. Abdomen: Soft, non tender, non distended. Total time for discharge - review of data, exam, discussion with providers and care-team, med-rec and orders, arranging follow up, counseling of patient and/or family and documentation was 33 minutes. Signed Gisela Holguin MD [facility] Medicine 03/30/2024 2:[address] [facility] 03-30-2024 Note [facility] CARDIOLOGY INPAT IENT PROGRESS NOTE Reason for follow up: elevated troponin Subjective HPI: Jess Bacon is a 68 y.o. female with no known past medical history, no medications at home presented to the hospital due to elevated troponin the patient initially went to [facility] due to symptoms of abdominal pain, nausea vomiting diarrhea up to 8 times a day, watery consistency, she was dehydrated treated with IV fluids, troponin was checked found to be elevated so she was transferred here to rule out NSTEMI patient denies any chest pain shortness of breath orthopnea PND's no history of diabetes or hypertension no history of premature coronary artery disease today she is chest pain-free she still has mid abdominal pain with tenderness, EKG showed no acute ST wave changes concerning for acute coronary syndrome. Underwent cardiac catheterization on 03/29/24, normal cors, mild myocardial bridging. Interval: Patient without concerns today. Denies issues overnight. Her SBP has been 80s-90s this morning. She is receiving IV fluids per primary team. She denies dizziness, LH, cp, sob. Reports her baseline SBP is low 100s. Angiogram site to left radial without complications. Tele: SR [id number] ALLERGIES No Known Allergies CURRENT MEDS aminophylline, 50 mg, intravenous, Once aspirin, 81 mg, oral, Daily atorvastatin, 40 mg, oral, Nightly heparin (porcine), 5,000 Units, subcutaneous, BID kit prep Tc 99m-sestamibi no.1, 10 millicurie, intravenous, Once in imaging kit prep Tc 99m-sestamibi no.1, 30 millicurie, intravenous, Once in imaging metoprolol succinate XL, 12.5 mg, oral, Daily oxybutynin XL, 10 mg, oral, Daily pantoprazole, 40 mg, oral, Daily regadenoson, 0.4 mg, intravenous, Once sulfur hexafluoride microsphr, 2 mL, intravenous, Once in imaging sodium chloride, 80 mL/hr, Last Rate: 80 mL/hr (03/30/24 0602) PRN medications: acetaminophen, hydrOXYzine pamoate, melatonin, ondansetron ODT OR ondansetron, sennosides-docusate sodium Objective Patient Vitals for the past 24 hrs: BP Temp Temp src Pulse Resp SpO2 Weight 03/30/24 0524 -- -- -- -- -- -- 53.1 kg (117 lb 1 oz) 03/30/24 0409 -- 36.2 ???C (97.2 ???F) Temporal -- -- -- -- 03/30/24 0400 (!) 97/46 -- -- 54 11 97 % -- 03/30/24 0000 104/51 -- -- 57 12 96 % -- 03/29/24 2100 (!) 101/41 -- -- 69 23 96 % -- 03/29/241999 (!) 102/49 -- -- 61 13 97 % -- 03/29/241944 -- 37.4 ???C (99.3 ???F) Temporal -- -- -- -- 03/29/24 1814 99/67 36.8 ???C (98.3 ???F) Temporal 70 14 100 % -- 03/29/24 1730 97/68 36.8 ???C (98.3 ???F) Temporal 71 14 100 % -- 03/29/24 1700 110/51 36.8 ???C (98.2 ???F) Temporal 69 14 98 % -- 03/29/24 1630 89/59 36.5 ???C (97.7 ???F) Temporal 70 14 99 % -- 03/29/24 1620 93/70 36.8 ???C (98.2 ???F) Temporal 66 14 97 % -- 03/29/24 1600 109/55 36.8 ???C (98.2 ???F) Temporal 64 15 97 % -- 03/29/24 1547 138/88 36.7 ???C (98.1 ???F) Temporal 65 18 98 % -- 03/29/24 1530 123/67 36.7 ???C (98.1 ???F) Temporal 71 16 97 % -- 03/29/24 1513 106/61 -- -- 72 14 96 % -- 03/29/24 1428 -- -- -- -- -- 99 % -- 03/29/24 1427 113/61 -- -- 79 14 99 % -- 03/29/24 1156 (!) 120/41 37.3 ???C (99.2 ???F) Temporal 84 21 95 % -- 03/29/24 1100 (!) 104/49 37.3 ???C (99.1 ???F) Temporal 66 17 -- -- BP (!) 97/46 Pulse 54 Temp 36.2 ???C (97.2 ???F) (Temporal) Resp 11 Ht 1.549 m (5' 1 ) Wt 53.1 kg (117 lb 1 oz) SpO2 97% BMI 22.12 kg/m??? Wt Readings from Last 3 Encounters: 03/30/24 53.1 kg (117 lb 1 oz) General: Awake, alert, appropriate mood/affect, NAD Eyes: anicteric sclera. Non-injected conjunctiva. Neck: No elevated JVP. Pulm: Breath sounds clear to ascultation bilaterally with no wheeze, crackles or rhonchi Cards: HRRR, NL S1, S2. No S3 or S4 gallop. Murmur: none Abd: Soft, Nontender, physiologic bowel sounds are present Extr: Lower extremity edema: none. DP pulses present bilaterally Skin: warm, dry, well perfused Left radial artery access site: dressing removed, site clean, dry, no hematoma, no drainage, no erythema. Radial pulse +2, bandaid applied over site. Neuro: A&Ox3, No gross deficits Lab Results Component Value Date NA 138 03/30/2024 K 4.3 03/30/2024 CL 103 03/30/2024 ANIONGAP 9 03/30/2024 BUN 18 03/30/2024 CREATININE 0.65 03/30/2024 CALCIUM 9.0 03/30/2024 MG 2.0 03/25/2024 PHOS 3.1 03/25/2024 Lab Results Component Value Date BILITOT 0.6 03/30/2024 BILIDIR 0.1 03/25/2024 ALKPHOS 36 03/30/2024 AST 49 (H) 03/30/2024 ALT 45 03/30/2024 PROT 6.1 03/30/2024 ALBUMIN 3.8 03/30/2024 Lab Results Component Value Date CHOLESTEROL 135 03/26/2024 TRIGLYCERIDES 55 03/26/2024 HDL 34 03/26/2024 LDL CALC 90 03/26/2024 Lab Results Component Value Date BNP 267 (H) 03/25/2024 No results found for: THYROID , TSH , FREE T4 No results found for: DIGOXIN LVL Lab Results Component Value Date HGBA1C 5.9 03/26/2024 Lab Results Component Value Date WBC 6.22 03/07 (more content not included)... [facility] 03-29-2024 Note Patient: Jess yin Procedure Information Date/Time: 03/29/241123 Procedure: Coronary angiography - with cors Location: [facility] [facility] / [facility] VASCULAR LAB (Cath) Providers: Bebo Yee MD Clinical information reviewed: Tobacco Allergies Meds Problems Med Hx Surg Hx Fam Hx Soc Hx Physical Exam Airway Mallampati: II TM distance: >3 FB Neck ROM: full Cardiovascular Rhythm: regular Rate: normal Dental Pulmonary Breath sounds clear to auscultation Abdominal Abdomen: soft Bowel sounds: normal Anesthesia Plan ASA 3 other (Conscious sedation) Anesthetic plan and risks discussed with patient. Use of blood products discussed with patient who consented to blood products. Plan discussed with attending. Additional Equipment Requests [facility] 03-29-2024 Note Hospital Medicine Daily Progress Note - 03/29/2024 11:31 AM; Room: [id number]- Admission: 03/25/2024 9:23 PM; Length of stay: 4 days THE HOSPITALIST TEAM PREFERS TO USE [employer] CHAT FOR COMMUNICATION 7AM-7PM. IF I DO NOT RESPOND WITHIN 15 MINUTES, PLEASE PAGE ME/CALL THROUGH THE [facility]. FROM 7PM-7AM, PLEASE PAGE [phone](COVR) Code Status: Full Code Barriers to Discharge: Cardiac catheterization Expected Discharge Date: 03/25/2024 Discharge Destination: home Overview Patient is seen for evaluation and management of gastroenteritis, elevated troponin. Patient is a 68-year-old female with overactive bladder, anxiety, vitamin D deficiency, presented from [facility] with abdominal pain, nausea/vomiting and diarrhea, she was found to be dehydrated and started on IV fluids. She was subsequently found to have elevated troponin, therefore she was transferred to [facility] due to concern for NSTEMI. Peak troponin at 3.5. GI evaluated the patient and recommended no urgent intervention. TTE performed on 03/27/2024 showed EF 55%, no wall motion abnormalities, normal right-sided pressures. Stress test performed on 03/28/2024 showed basal inferior, basal inferolateral, mid inferior, mid inferolateral, apical inferior and apical lateral wall segments show moderate reduction in the myocardium. Subjective Patient was seen and examined at bedside this morning. She was alert awake and oriented. Patient denied any chest pain, chest discomfort, abdominal pain, shortness of breath. She is currently n.p.o. for cardiac cath later today. Physical Exam Visit Vitals BP (!) 104/49 (BP Location: Left arm, Patient Position: Sitting) Pulse 66 Temp 37.3 ???C (99.1 ???F) (Temporal) Resp 17 Intake/Output Summary (Last 24 hours) at 03/29/2024 1131 Last data filed at 03/29/2024 0600 Gross per 24 hour Intake -- Output 500 ml Net -500 ml Physical Exam Constitutional: Appearance: Normal appearance. HENT: Head: Normocephalic. Mouth/Throat: Mouth: Mucous membranes are moist. Cardiovascular: Rate and Rhythm: Normal rate and regular rhythm. Pulses: Normal pulses. Heart sounds: Normal heart sounds. Pulmonary: Effort: Pulmonary effort is normal. Breath sounds: Normal breath sounds. Abdominal: General: Abdomen is flat. Palpations: Abdomen is soft. Skin: General: Skin is warm. Neurological: General: No focal deficit present. Mental Status: She is alert. Estimated body mass index is 21.73 kg/m??? as calculated from the following: Height as of this encounter: 1.549 m (5' 1 ). Weight as of this encounter: 52.2 kg (115 lb). Active Inpatient Problems Principal Problem: NSTEMI (non-ST elevated myocardial infarction) (CMS/HCC) Active Problems: Gastroenteritis Anxiety Abnormal stress test Assessment and Plan Patient is a 68-year-old female with overactive bladder, anxiety, vitamin D deficiency, presented from [facility] with abdominal pain, nausea/vomiting and diarrhea, she was found to be dehydrated and started on IV fluids. She was subsequently found to have elevated troponin, therefore she was transferred to [facility] due to concern for NSTEMI. Peak troponin at 3.5. NSTEMI Peak troponin at 3.5 Continue aspirin, statin. Stress test indicative of ischemia, although it could not be completed due to patient experiencing leg pain. Plan for cardiac catheterization today. Gastroenteritis (resolved) Overactive bladder Resume oxybutynin VTE Prophylaxis: Heparin subcutaneous Scheduled Meds aminophylline, 50 mg, intravenous, Once aspirin, 81 mg, oral, Daily atorvastatin, 40 mg, oral, Nightly heparin (porcine), 5,000 Units, subcutaneous, BID kit prep Tc 99m-sestamibi no.1, 10 millicurie, intravenous, Once in imaging kit prep Tc 99m-sestamibi no.1, 30 millicurie, intravenous, Once in imaging oxybutynin XL, 10 mg, oral, Daily pantoprazole, 40 mg, oral, Daily regadenoson, 0.4 mg, intravenous, Once sulfur hexafluoride microsphr, 2 mL, intravenous, Once in imaging Pertinent Investigations Hematology: Results from last 7 days Lab Units 03/29/24 0547 03/28/24 0458 03/26/24 0511 03/25/24 2311 WBC AUTO 10*3/uL 5.41 6.25 < > 8.24 HEMOGLOBIN g/dL 13.9 13.0 < > 14.2 HEMATOCRIT % 42.8 40.3 < > 44.6 MCV fL 89.4 89.2 < > 91.8 PLATELETS AUTO 10*3/uL 182 179 < > 201 INR -- -- -- 1.11* < > = values in this interval not displayed. Chemistry: Results from last 7 days Lab Units 03/29/24 0546 03/28/24 0458 03/27/24 0535 03/25/24 2311 SODIUM mmol/L 140 140 142 139 POTASSIUM mmol/L 4.8 4.3 4.2 3.8 CHLORIDE mmol/L 105 106 107 107 CO2 mmol/L 30 29 28 24 BUN mg/dL 16 17 16 12 CREATININE mg/dL 0.76 0.71 0.69 0.68 GLUCOSE mg/dL 100 92 92 105* MAGNESIUM mg/dL -- -- -- 2.0 CALCIUM mg/dL 9.1 8.7 8.6 8.6 PHOSPHORUS mg/dL -- -- -- 3.1 Results from last 7 days Lab Units 03/29/24 0546 03/28/24 0458 03/27/24 0535 03/25/24 2311 AST U/L 31 (more content not included)... [facility] 03-29-2024 Note [facility] CARDIOLOGY INPAT IENT PROGRESS NOTE Reason for follow up: elevated troponin Subjective HPI: Jess Bacon is a 68 y.o. female with no known past medical history, no medications at home presented to the hospital due to elevated troponin the patient initially went to [facility] due to symptoms of abdominal pain, nausea vomiting diarrhea up to 8 times a day, watery consistency, she was dehydrated treated with IV fluids, troponin was checked found to be elevated so she was transferred here to rule out NSTEMI patient denies any chest pain shortness of breath orthopnea PND's no history of diabetes or hypertension no history of premature coronary artery disease today she is chest pain-free she still has mid abdominal pain with tenderness, EKG showed no acute ST wave changes concerning for acute coronary syndrome Interval: Patient in NAD, on room air. Denies questions or concerns regarding procedure today. Denies cp, sob, palpitations, dizziness, LH, N/V/D. Tele: SR [id number] ALLERGIES No Known Allergies CURRENT MEDS aminophylline, 50 mg, intravenous, Once aspirin, 81 mg, oral, Daily atorvastatin, 40 mg, oral, Nightly heparin (porcine), 5,000 Units, subcutaneous, BID kit prep Tc 99m-sestamibi no.1, 10 millicurie, intravenous, Once in imaging kit prep Tc 99m-sestamibi no.1, 30 millicurie, intravenous, Once in imaging oxybutynin XL, 10 mg, oral, Daily pantoprazole, 40 mg, oral, Daily regadenoson, 0.4 mg, intravenous, Once sulfur hexafluoride microsphr, 2 mL, intravenous, Once in imaging PRN medications: acetaminophen, hydrOXYzine pamoate, melatonin, ondansetron ODT OR ondansetron, sennosides-docusate sodium Objective Patient Vitals for the past 24 hrs: BP Temp Temp src Pulse Resp SpO2 Weight 03/29/24 1100 (!) 104/49 37.3 ???C (99.1 ???F) Temporal 66 17 -- -- 03/29/24 0800 106/59 36.9 ???C (98.5 ???F) Temporal 59 14 -- -- 03/29/24 0754 107/54 36.8 ???C (98.2 ???F) Temporal 67 16 98 % -- 03/29/24 0500 -- -- -- -- -- -- 52.2 kg (115 lb) 03/29/24 0400 93/50 36.7 ???C (98 ???F) Temporal 56 12 99 % -- 03/29/24 0000 (!) 100/48 37 ???C (98.6 ???F) Temporal 64 14 96 % -- 03/28/24 1940 110/57 37.1 ???C (98.7 ???F) Temporal 73 19 98 % -- 03/28/24 1605 121/64 -- Temporal 76 21 99 % -- 03/28/24 1344 125/56 37.3 ???C (99.1 ???F) Temporal 84 18 97 % -- BP (!) 104/49 (BP Location: Left arm, Patient Position: Sitting) Pulse 66 Temp 37.3 ???C (99.1 ???F) (Temporal) Resp 17 Ht 1.549 m (5' 1 ) Wt 52.2 kg (115 lb) SpO2 98% BMI 21.73 kg/m??? Wt Readings from Last 3 Encounters: 03/29/24 52.2 kg (115 lb) General: Awake, alert, appropriate mood/affect, NAD Eyes: anicteric sclera. Non-injected conjunctiva. Neck: No elevated JVP. Pulm: Breath sounds clear to ascultation bilaterally with no wheeze, crackles or rhonchi Cards: HRRR, NL S1, S2. No S3 or S4 gallop. Murmur: none Abd: Soft, Nontender, physiologic bowel sounds are present Extr: Lower extremity edema: none. DP pulses present bilaterally Skin: warm, dry, well perfused Neuro: A&Ox3, No gross deficits Lab Results Component Value Date NA 140 03/29/2024 K 4.8 03/29/2024 CL 105 03/29/2024 ANIONGAP 10 03/29/2024 BUN 16 03/29/2024 CREATININE 0.76 03/29/2024 CALCIUM 9.1 03/29/2024 MG 2.0 03/25/2024 PHOS 3.1 03/25/2024 Lab Results Component Value Date BILITOT 0.7 03/29/2024 BILIDIR 0.1 03/25/2024 ALKPHOS 34 03/29/2024 AST 31 03/29/2024 ALT 24 03/29/2024 PROT 6.0 03/29/2024 ALBUMIN 3.7 03/29/2024 Lab Results Component Value Date CHOLESTEROL 135 03/26/2024 TRIGLYCERIDES 55 03/26/2024 HDL 34 03/26/2024 LDL CALC 90 03/26/2024 Lab Results Component Value Date BNP 267 (H) 03/25/2024 No results found for: THYROID , TSH , FREE T4 No results found for: DIGOXIN LVL Lab Results Component Value Date HGBA1C 5.9 03/26/2024 Lab Results Component Value Date WBC 5.41 03/29/2024 RBC 4.79 03/29/2024 HGB 13.9 03/29/2024 HCT 42.8 03/29/2024 MCV 89.4 03/29/2024 MCH 29.0 03/29/2024 MCHC 32.5 03/29/2024 RDW 13.6 03/29/2024 NEUTOPHILPCT 71.8 03/25/2024 LYMPHOPCT 18.4 (L) 03/25/2024 MONOPCT 7.0 03/25/2024 EOSPCT 1.8 03/25/2024 BASOPCT 0.6 03/25/2024 NEUTROABS 5.91 03/25/2024 LYMPHSABS 1.52 03/25/2024 MONOSABS 0.58 03/25/2024 EOSABS 0.15 03/25/2024 BASOSABS 0.05 03/25/2024 PLT 182 03/29/2024 NRBC 0.0 03/25/2024 No X-ray results found for the past 24 hours CV Testing: Treadmill Stress MPI 03/28/24: Conclusions Negative treadmill EKG stress test for ischemia, The Colindres Score 5.5 consistent with low risk estimates an annual cardiovascular mortality of 0% and a five year survival of 95% Using the Colindres Score there is a low probability of any angiographic coronary disease, Positive perfusion stress test for ischemia, Abnormal myocardial perfusion with soft tissue artifact, inferolateral reversible perfusion defect abnormalities consistent with ischemia, TID ind (more content not included)... [facility] 03-28-2024 Note Hospital Medicine Daily Progress Note - 03/28/2024 1:37 PM; Room: [address] [place] [address] Admission: 03/25/2024 9:23 PM; Length of stay: 3 days THE HOSPITALIST TEAM PREFERS TO USE [employer] CHAT FOR COMMUNICATION 7AM-7PM. IF I DO NOT RESPOND WITHIN 15 MINUTES, PLEASE PAGE ME/CALL THROUGH THE [facility]. FROM 7PM-7AM, PLEASE PAGE [phone](COVR) Code Status: Full Code Barriers to Discharge: Cardiac catheterization Expected Discharge Date: 03/29/2024 Discharge Destination: home Overview Patient is seen for evaluation and management of gastroenteritis, elevated troponin. Patient is a 68-year-old female with overactive bladder, anxiety, vitamin D deficiency, presented from [facility] with abdominal pain, nausea/vomiting and diarrhea, she was found to be dehydrated and started on IV fluids. She was subsequently found to have elevated troponin, therefore she was transferred to [facility] due to concern for NSTEMI. Peak troponin at 3.5. GI evaluated the patient and recommended no urgent intervention. TTE performed on 03/27/2024 showed EF 55%, no wall motion abnormalities, normal right-sided pressures. Stress test performed on 03/28/2024 showed basal inferior, basal inferolateral, mid inferior, mid inferolateral, apical inferior and apical lateral wall segments show moderate reduction in the myocardium. Subjective Patient was seen and examined at bedside this morning. He was alert awake and oriented. She denied any active complaints. She stated her diarrhea has resolved, denies any chest pain. Physical Exam Visit Vitals BP (!) 107/48 (BP Location: Right arm, Patient Position: Lying) Pulse 72 Temp 36.7 ???C (98.1 ???F) (Temporal) Resp 17 Intake/Output Summary (Last 24 hours) at 03/28/2024 1337 Last data filed at 03/28/2024 0747 Gross per 24 hour Intake 387.63 ml Output 700 ml Net -312.37 ml Physical Exam Constitutional: Appearance: Normal appearance. HENT: Head: Normocephalic and atraumatic. Mouth/Throat: Mouth: Mucous membranes are moist. Cardiovascular: Rate and Rhythm: Normal rate and regular rhythm. Pulses: Normal pulses. Heart sounds: Normal heart sounds. Pulmonary: Effort: Pulmonary effort is normal. Breath sounds: Normal breath sounds. Abdominal: General: Abdomen is flat. Palpations: Abdomen is soft. Musculoskeletal: Comments: Right arm peripheral IV Skin: General: Skin is warm. Neurological: General: No focal deficit present. Mental Status: She is alert and oriented to person, place, and time. Estimated body mass index is 21.99 kg/m??? as calculated from the following: Height as of this encounter: 1.549 m (5' 1 ). Weight as of this encounter: 52.8 kg (116 lb 6.4 oz). Active Inpatient Problems Principal Problem: NSTEMI (non-ST elevated myocardial infarction) (CMS/HCC) Active Problems: Gastroenteritis Anxiety Assessment and Plan Patient is a 68-year-old female with overactive bladder, anxiety, vitamin D deficiency, presented from [facility] with abdominal pain, nausea/vomiting and diarrhea, she was found to be dehydrated and started on IV fluids. She was subsequently found to have elevated troponin, therefore she was transferred to [facility] due to concern for NSTEMI. Peak troponin at 3.5. NSTEMI Peak troponin at 3.5 Continue aspirin, statin. Stress test indicative of ischemia, although it could not be completed due to patient experiencing leg pain. Plan for cardiac catheterization 03/25/2024 Gastroenteritis (resolved) Overactive bladder Resume oxybutynin VTE Prophylaxis: Heparin subcutaneous Scheduled Meds aminophylline, 50 mg, intravenous, Once aspirin, 81 mg, oral, Daily atorvastatin, 40 mg, oral, Nightly kit prep Tc 99m-sestamibi no.1, 10 millicurie, intravenous, Once in imaging kit prep Tc 99m-sestamibi no.1, 30 millicurie, intravenous, Once in imaging oxybutynin XL, 10 mg, oral, Daily pantoprazole, 40 mg, oral, Daily regadenoson, 0.4 mg, intravenous, Once sulfur hexafluoride microsphr, 2 mL, intravenous, Once in imaging Pertinent Investigations Hematology: Results from last 7 days Lab Units 03/28/2445703/27/2435 03/26/24 0511 03/25/24 2311 WBC AUTO 10*3/uL 6.25 5.82 < > 8.24 HEMOGLOBIN g/dL 13.0 13.3 < > 14.2 HEMATOCRIT % 40.3 41.0 < > 44.6 MCV fL 89.2 88.0 < > 91.8 PLATELETS AUTO 10*3/uL 179 182 < > 201 INR -- -- -- 1.11* < > = values in this interval not displayed. Chemistry: Results from last 7 days Lab Units 03/28/2445703/27/24 0535 03/25/24 2311 SODIUM mmol/L 140 142 139 POTASSIUM mmol/L 4.3 4.2 3.8 CHLORIDE mmol/L 106 107 107 CO2 mmol/L 29 28 24 BUN mg/dL 17 16 12 CREATININE mg/dL 0.71 0.69 0.68 GLUCOSE mg/dL 92 92 105* MAGNESIUM mg/dL -- -- 2.0 CALCIUM mg/dL 8.7 8.6 8.6 PHOSPHORUS mg/dL -- -- 3.1 Results from last 7 days Lab Units 03/28/24458 03/22/24 0535 03/25/24 2311 AST U/L 16 18 32 ALT U/L 13 13 21 ALK PHOS U/L 32* 33* 35 BILIRUBI (more content not included)... [facility] 03-28-2024 Note [facility] CARDIOLOGY INPAT IENT PROGRESS NOTE Reason for follow up: elevated troponin Subjective HPI: Jess Bacon is a 68 y.o. female with no known past medical history, no medications at home presented to the hospital due to elevated troponin the patient initially went to [facility] due to symptoms of abdominal pain, nausea vomiting diarrhea up to 8 times a day, watery consistency, she was dehydrated treated with IV fluids, troponin was checked found to be elevated so she was transferred here to rule out NSTEMI patient denies any chest pain shortness of breath orthopnea PND's no history of diabetes or hypertension no history of premature coronary artery disease today she is chest pain-free she still has mid abdominal pain with tenderness, EKG showed no acute ST wave changes concerning for acute coronary syndrome Interval: Patient in NAD, examined at bedside after stress test this morning, results pending. Patient denies CP, SOB, dizziness or light headedness, edema. She denies any further GI symptoms including diarrhea, abdominal pain, nausea or vomiting. Denies fevers or chills. Tele: 56-86 ALLERGIES No Known Allergies CURRENT MEDS aminophylline, 50 mg, intravenous, Once aspirin, 81 mg, oral, Daily atorvastatin, 40 mg, oral, Nightly kit prep Tc 99m-sestamibi no.1, 10 millicurie, intravenous, Once in imaging kit prep Tc 99m-sestamibi no.1, 30 millicurie, intravenous, Once in imaging oxybutynin XL, 10 mg, oral, Daily pantoprazole, 40 mg, oral, Daily regadenoson, 0.4 mg, intravenous, Once sulfur hexafluoride microsphr, 2 mL, intravenous, Once in imaging PRN medications: acetaminophen, hydrOXYzine pamoate, melatonin, ondansetron ODT OR ondansetron, sennosides-docusate sodium Objective Patient Vitals for the past 24 hrs: BP Temp Temp src Pulse Resp SpO2 Weight 03/28/24 0747 (!) 107/48 36.7 ???C (98.1 ???F) Temporal 72 17 98 % -- 03/28/24 0502 -- -- -- -- -- -- 52.8 kg (116 lb 6.4 oz) 03/28/24 0400 (!) 117/47 -- -- 64 11 98 % -- 03/28/24 0000 112/52 -- -- 62 13 97 % -- 03/27/242022 100/50 37.4 ???C (99.3 ???F) Temporal 70 22 98 % -- 03/27/24 1600 108/53 37.6 ???C (99.7 ???F) Temporal 65 17 98 % -- 03/27/24 1140 108/58 36.8 ???C (98.2 ???F) Temporal 67 13 -- -- 03/27/24 0929 (!) 100/48 -- -- 64 -- -- -- BP (!) 107/48 (BP Location: Right arm, Patient Position: Lying) Pulse 72 Temp 36.7 ???C (98.1 ???F) (Temporal) Resp 17 Ht 1.549 m (5' 1 ) Wt 52.8 kg (116 lb 6.4 oz) SpO2 98% BMI 21.99 kg/m??? Wt Readings from Last 3 Encounters: 03/28/24 52.8 kg (116 lb 6.4 oz) General: Awake, alert, appropriate mood/affect, NAD Eyes: anicteric sclera. Non-injected conjunctiva. Neck: No elevated JVP. Pulm: Breath sounds clear to ascultation bilaterally with no wheeze, crackles or rhonchi Cards: HRRR, NL S1, S2. No S3 or S4 gallop. Murmur: none Abd: Soft, Nontender, physiologic bowel sounds are present Extr: Lower extremity edema: none. DP pulses present bilaterally Skin: warm, dry, well perfused Neuro: A&Ox3, No gross deficits Lab Results Component Value Date NA 140 03/28/2024 K 4.3 03/28/2024 CL 106 03/28/2024 ANIONGAP 9 03/28/2024 BUN 17 03/28/2024 CREATININE 0.71 03/28/2024 CALCIUM 8.7 03/28/2024 MG 2.0 03/25/2024 PHOS 3.1 03/25/2024 Lab Results Component Value Date BILITOT 0.6 03/28/2024 BILIDIR 0.1 03/25/2024 ALKPHOS 32 (L) 03/28/2024 AST 16 03/28/2024 ALT 13 03/28/2024 PROT 5.6 (L) 03/28/2024 ALBUMIN 3.5 03/28/2024 Lab Results Component Value Date CHOLESTEROL 135 03/26/2024 TRIGLYCERIDES 55 03/26/2024 HDL 34 03/26/2024 LDL CALC 90 03/26/2024 Lab Results Component Value Date BNP 267 (H) 03/25/2024 No results found for: THYROID , TSH , FREE T4 No results found for: DIGOXIN LVL Lab Results Component Value Date HGBA1C 5.9 03/26/2024 Lab Results Component Value Date WBC 6.25 03/28/2024 RBC 4.52 03/28/2024 HGB 13.0 03/28/2024 HCT 40.3 03/28/2024 MCV 89.2 03/28/2024 MCH 28.8 03/28/2024 MCHC 32.3 03/28/2024 RDW 13.7 03/28/2024 NEUTOPHILPCT 71.8 03/25/2024 LYMPHOPCT 18.4 (L) 03/25/2024 MONOPCT 7.0 03/25/2024 EOSPCT 1.8 03/25/2024 BASOPCT 0.6 03/25/2024 NEUTROABS 5.91 03/25/2024 LYMPHSABS 1.52 03/25/2024 MONOSABS 0.58 03/25/2024 EOSABS 0.15 03/25/2024 BASOSABS 0.05 03/25/2024 PLT 179 03/28/2024 NRBC 0.0 03/25/2024 No X-ray results found for the past 24 hours CV Testing: Treadmill Stress MPI 03/28/24: Conclusions Negative treadmill EKG stress test for ischemia, The Colindres Score 5.5 consistent with low risk estimates an annual cardiovascular mortality of 0% and a five year survival of 95% Using the Colindres Score there is a low probability of any angiographic coronary disease, Positive perfusion stress test for ischemia, Abnormal myocardial perfusion with soft tissue artifact, inferolateral reversible perfusion defect abnormalities consistent with ischemia, TID index score (more content not included)... [facility] 03-27-2024 Note Attestation signed by Melonie Cole MD at 03/27/2024 6:06 PM (Updated) I personally saw and examined the patient on the same date of service as resident/fellow Dr Ayala. I discussed the findings and therapeutic plan with the resident/fellow Dr Ayala. I agree with the documentation, except for any edits/updates below. Teaching Physician's Revisions: None In summary the patient feels better today, no further abdominal pain. She denies any chest pain all along. Her echo today showed normal left ventricle systolic function without wall motion abnormalities. The cardiac enzyme elevation could be related to demand ischemia. However we will obtain stress nuclear test tomorrow to rule out this possibility. Continue aspirin and atorvastatin. She was not placed on beta-raoul due to low blood pressure. Melonie Cole MD, [facility] Cardiology Progress Note Subjective Subjective: Jess Baocn is a 68 y.o. female who presented with diarrhea and cardilogy is seeing for elevated tropon in the absence of any cardiac symptoms. Seen today, denied chest pain, palpitations, dizziness, lightheadedness, syncope or shortness of breath. Objective Objective: Patient Vitals for the past 24 hrs: BP Temp Temp src Pulse Resp SpO2 Weight 07/22/24 1600 108/53 -- -- 65 17 98 % -- 03/27/24 1140 108/58 36.8 ???C (98.2 ???F) Temporal 67 13 -- -- 03/27/24 0929 (!) 100/48 -- -- 64 -- -- -- 03/27/24 0805 172/60 36.9 ???C (98.4 ???F) Temporal 87 20 -- -- 03/27/24 0620 -- -- -- -- -- -- 53.3 kg (117 lb 6.4 oz) 03/27/24 0400 109/66 -- -- 65 12 96 % -- 03/27/24 0000 94/53 -- -- 64 12 96 % -- 03/26/24 2100 -- 37.3 ???C (99.1 ???F) Temporal -- -- -- -- 03/26/24 2000 99/56 -- -- 68 (!) 31 96 % -- 03/26/24 1615 90/70 37 ???C (98.6 ???F) Temporal 69 18 100 % -- Physical Examination: GENERAL: AOx3, in no acute distress. NECK: No JVD present. CARDIAC: RRR. No murmur, rubs, or gallops. RESPIRATORY: CTAB, no increased effort of breathing. ABDOMEN: Soft, nontender, nondistended. EXTREMITIES: No lower extremity edema, peripheral pulses are 2+ bilaterally. Relevant Lab Results Encounter Date: 03/25/24 ECG 12 lead Result Value Ventricular Rate 67 Atrial Rate 67 IN Interval 142 QRS DURATION 70 QT Interval 448 QTC CALCULATION(BAZETT) 473 P [place] 83 R-[place]banks -5 T Wave [place] -22 Impression Normal sinus rhythm Possible Inferior infarct (cited on or before 25-MAR-2024) Abnormal ECG When compared with ECG of 25-MAR-2024 23:28, (unconfirmed) Nonspecific T wave abnormality has replaced inverted T waves in Inferior lead Nonspecific T wave abnormality has replaced inverted T waves in Lateral Confirmed by Anderson Stiles ([id number]) on 03/26/2024 5:36:54 PM Lab Results Component Value Date TROPONINI 2.59 (HH) 03/27/2024 Complete Echo (TTE) w/wo Imaging Agent, Strain, 3D, Bubble Study Result Date: 03/27/2024 1 1 [facility] Heart Station [address] [place] [address] [phone] (fax) Echocardiogram-[facility] Name: JESS BACON Study Date: 03/27/2024 07:59 AM B/P: 109 mmHg/66 mmHg HR: Date of : 1955 Location: [facility] Height: 61 in. Age: 68 year(s) Patient Room: 3140 Weight: 117 lb. Gender: Female Patient Status: InPt BSA: 1.5 m2 Indication: Non-STEMI, elevated troponins Examination: Echocardiogram (Complete), Lumason Contrast Image Quality: Fair Patient Consent: Procedure explained to patient Exam Details Contrast: I.V. dose of Lumason Conclusions Left Ventricle: The left ventricle is normal size. Global left ventricular systolic function is at lower limits of normal. The EF is 55 % visually. Left ventricular wall thickness is normal. No regional wall motion abnormality. Normal diastolic function. Right Ventricle: The right ventricle is normal in size. Normal right ventricular systolic function. Doppler studies suggest normal right sided pressures. Left Atrium: The left atrium is normal in size. Overall Conclusions: Due to suboptimal imaging Lumason contrast was administered for opacification and better delineation of endocardial borders. No significant valvular abnormalities Measurements Left Ventricle Label Value Normal Value LVOTd 1.7 cm (18cm - 20cm) LVOT VTI 20 cm (18cm - 22cm) LVOT PGmax 3 mmHg LVEF visual 55 % LVDd, 2D 4.44 cm (3.9cm - 5.3cm) LVDs, 2D 3.61 cm (2.1cm - 4cm) IVSd, 2D 0.84 cm (0.6cm - 1.1cm) LVPWd, 2D 0.83 cm (0.6cm - 0.9cm) LV Mass, 2D ASE 117.55 g LV Mass Index, 2D ASE 78.4 g/m?? (44g/m?? - 88.4g/m??) RWT, MM 0.37 (0 - 0.42) LVSVI, 2D 23.3 ml/m2 LVOT PGmean 2 mmHg LVSV_LVOT 45 ml Right Ventricle Label Value Normal Value RVDd, 2D 3.31 cm (1.9cm - 3.8cm) TAPSE 2 cm Left Atrium Label Value Normal Value LA Volume, BP 20 ml (22ml - 52ml) (more content not included)... [facility] 03-27-2024 Note 03/27/24 1517 Admission Assessment Questions Verify insurance with patient Yes ([employer]. Medicare A B. [employer].) Do you understand medical disease or what brought you into the hospital? Yes Who is your current PCP? Millie Gonzalez Can I schedule a follow up appointment for you at the time of discharge? No Do you understand why you are taking your current medications? Yes Are you taking your medications as prescribed? Yes Did patient provide teach back? Yes Pharmacy Bedside Delivery Status Not Interested ([facility] in [facility].) Does the patient have a supervisor case loading assigned to them through their insurance? No Living Arrangement (Current/Prior to Hospitalization) Private residence (2 story house w/ 3 steps. Lives with daughter and her family. And they are able to help at discharge as needed.) Does the patient have history of HHC or SNF? No Assistive Device Not applicable Patient's goal for discharge Home no needs Was patient reminded that goal for discharge is 11am? Yes Does the patient have transportation at discharge? Yes Type of Residence Private residence Is PT/OT appropriate? No Is PT/OT ordered? No Is SW consult appropriate? No Is SW consult ordered? No Do you understand the benefits of MyChart? Yes Were you able to send link and activate MyChart? Yes From Home with plans to return Home no needs. [facility] 03-27-2024 Note Hospital Medicine Daily Progress Note - 03/27/2024 1:27 PM; Room: [address] [place] [address] Admission: 03/25/2024 9:23 PM; Length of stay: 2 days THE HOSPITALIST TEAM PREFERS TO USE [employer] CHAT FOR COMMUNICATION 7AM-7PM. IF I DO NOT RESPOND WITHIN 15 MINUTES, PLEASE PAGE ME/CALL THROUGH THE [employer]. FROM 7PM-7AM, PLEASE PAGE [phone](COVR) Code Status: Full Code Barriers to Discharge: stress test, GI eval Expected Discharge Date: 03/27 or 03/28 Discharge Destination: home Overview Patient is seen for evaluation and management of gastroenteritis. Subjective Patient seen and examined in the morning. She is doing well today. Diarrhea has resolved and patient has not had any chest pain since admission. Cardiology is planning for stress test tomorrow. Physical Exam Visit Vitals BP 108/58 (BP Location: Right arm, Patient Position: Lying) Pulse 67 Temp 36.8 ???C (98.2 ???F) (Temporal) Resp 13 Intake/Output Summary (Last 24 hours) at 03/27/2024 1327 Last data filed at 03/27/2024 1200 Gross per 24 hour Intake 412.91 ml Output 600 ml Net -187.09 ml Physical Exam Vitals reviewed. Constitutional: General: She is not in acute distress. Appearance: She is not ill-appearing or toxic-appearing. HENT: Head: Normocephalic and atraumatic. Mouth/Throat: Mouth: Mucous membranes are moist. Eyes: General: No scleral icterus. Extraocular Movements: Extraocular movements intact. Pupils: Pupils are equal, round, and reactive to light. Cardiovascular: Rate and Rhythm: Normal rate and regular rhythm. Pulmonary: Effort: Pulmonary effort is normal. No respiratory distress. Breath sounds: No stridor. Abdominal: General: There is no distension. Palpations: Abdomen is soft. There is no mass. Skin: Findings: No rash. Neurological: Mental Status: She is alert. Mental status is at baseline. Cranial Nerves: No cranial nerve deficit. Psychiatric: Mood and Affect: Mood normal. Behavior: Behavior normal. Thought Content: Thought content normal. Judgment: Judgment normal. Estimated body mass index is 22.18 kg/m??? as calculated from the following: Height as of this encounter: 1.549 m (5' 1 ). Weight as of this encounter: 53.3 kg (117 lb 6.4 oz). Active Inpatient Problems Principal Problem: NSTEMI (non-ST elevated myocardial infarction) (CMS/HCC) Active Problems: Gastroenteritis Anxiety Assessment and Plan Gastroenteritis - resolved - States that it started about 4 days ago - No sick contacts - She was having up to 8 bowel movements at the peak of the gastroenteritis - States that today, she had about 1 loose bowel movement, but not diarrhea - Tolerating PO intake well Elevated troponin, either NSTEMI type I vs Demand ischemia - Has denied chest pain - Troponin has peaked at 3 - Currently on heparin drip - Cardiology planning stress test tomorrow Postprandial pain, either peptic ulcer disease vs chronic mesenteric ischemia - Notes significant abdominal pain following eating - Concerning for peptic ulcer disease vs chronic mesenteric ischemia - Currently on protonix - GI consulted, appreciate recommendations Overactive bladder - Oxybutynin has been resumed Qtc prolongation - Qtc 473 upon presentation - Avoid QT prolonging agent VTE Prophylaxis: Heparin drip Scheduled Meds aspirin, 81 mg, oral, Daily atorvastatin, 40 mg, oral, Nightly oxybutynin XL, 10 mg, oral, Daily pantoprazole, 40 mg, oral, Daily sulfur hexafluoride microsphr, 2 mL, intravenous, Once in imaging Pertinent Investigations Hematology: Results from last 7 days Lab Units 03/27/24 0535 03/26/24 0511 03/25/24 2311 WBC AUTO 10*3/uL 5.82 7.11 8.24 HEMOGLOBIN g/dL 13.3 13.5 14.2 HEMATOCRIT % 41.0 40.8 44.6 MCV fL 88.0 87.6 91.8 PLATELETS AUTO 10*3/uL 182 179 201 INR -- -- 1.11* Chemistry: Results from last 7 days Lab Units 03/27/24 0535 03/25/24 2311 SODIUM mmol/L 142 139 POTASSIUM mmol/L 4.2 3.8 CHLORIDE mmol/L 107 107 CO2 mmol/L 28 24 BUN mg/dL 16 12 CREATININE mg/dL 0.69 0.68 GLUCOSE mg/dL 92 105* MAGNESIUM mg/dL -- 2.0 CALCIUM mg/dL 8.6 8.6 PHOSPHORUS mg/dL -- 3.1 Results from last 7 days Lab Units 03/27/24 0535 03/25/24 2311 AST U/L 18 32 ALT U/L 13 21 ALK PHOS U/L 33* 35 BILIRUBIN TOTAL mg/dL 0.4 0.8 BILIRUBIN DIRECT mg/dL -- 0.1 Historical Values: (Includes values prior to this admission) Lab Results Component Value Date HDL 34 03/26/2024 LDL 101 03/26/2024 No results found for: [id number] , IRON , TIBC , C3 , C4 , SHAREE , CANCA , ASO , PSA , CEA , CA125 , CA199 , AFP , CA153 Imaging ECG 12 lead Normal sinus rhythm Possible Inferior infarct (cited on or before 25-MAR-2024) Abnormal ECG When compared with ECG of 25-MAR-2024 23:28, (unconfirmed) Nonspecific T wave abnormality has replaced inverted T waves in Inferior lead Nonspecific T wave abnormality has replaced inverted T waves in (more content not included)... [facility] 03-27-2024 Note Physical Therapy Physical Therapy Evaluation Patient Name: Jess Bacon : 1955 Today's Date: 03/27/2024 Patient is a 68 y/o female who presented to OSH with nausea/vomiting/diarrhea x2 days. Found to have elevated troponin and transferred to [facility] for further cardiac evaluation. Troponin currently 2.59. Peaked at 3.5, trended down and now trending back up from 2.07 over the past 18 hours. Patient is independent for all mobility without further skilled acute PT needs. PT to sign off. Discharge: Home General Subjective: Rn approved PT session and OOB activity. Patient standing in room upon arrival, agreeable to assessment. Upon completion, patient left in the restroom with call light aleida mon, student RN present. PT Diagnosis: Baseline functional mobility Patient Active Problem List Diagnosis NSTEMI (non-ST elevated myocardial infarction) (CMS/HCC) Gastroenteritis Anxiety History reviewed. No pertinent past medical history. History reviewed. No pertinent surgical history. Precautions Precautions Medical Precautions: telemetry, IV Pain Pain Assessment Pain Assessment: No/denies pain Pain Score: 0 - No pain Cognition Cognition Overall Cognitive Status: Within Functional Limits Arousal/Alertness: Appropriate responses to stimuli Orientation Level: Oriented X4 Following Commands: Follows all commands and directions without difficulty General Assessment General Assessment Hearing: Infact Hand Dominance: Left Home Living Home Living Type of Home: House Lives With: Daughter (Lives with daughter and son in law) Home Adaptive Equipment: Crutches, Walker rolling Home Layout: One level Home Access: Stairs to enter without rails Entrance Stairs-Rails: Right Entrance Stairs-Number of Steps: 3 Bathroom Shower/Tub: Tub/shower unit Prior Level of Function Prior Function Level of [place]: Independent with ADLs and functional transfers, Independent with homemaking with ambulation Prior Functional Mobility: Independent without device ADL Assistance: Independent Homemaking Assistance: Independent Vision Basic Assessment Vision - Basic Assessment Current Vision: No visual deficits Activity Tolerance Activity Tolerance Endurance: Stage III General Assessments Activity Tolerance Endurance: Stage III Sensation Light Touch: No apparent deficits Coordination Movements are Fluid and Coordinated: Yes Postural Control Postural Control: Within Functional Limits Static Sitting Balance Static Sitting-Balance Support: (Not assessed) Static Standing Balance Static Standing-Balance Support: Right upper extremity supported (Managing IV pole) Static Standing-Level of Assistance: Independent Dynamic Standing Balance Dynamic Standing-Balance Support: Right upper extremity supported (Managing IV pole) Dynamic Standing Balance-Level of Assistance: Independent Functional Assessments Bed Mobility Bed Mobility: No (Not visualized this session - patient reports independent without need for assistance) Transfers Transfer: Yes Transfer 1 Technique 1: Sit to stand, Stand to sit (From EOB) Transfer Device 1: none Transfer Level of Assistance 1: Independent Ambulation Ambulation: Yes Ambulation 1 Surface 1: Level tile Device 1: No device Assistance 1: Independent Quality of Gait 1: No significant deviations noted - managing IV pole throughout Comments/Distance (ft) 1: 35 ft around her room - deferred further ambulation into the hallway Extremity Assessments RUE Assessment RUE Assessment: Within Functional Limits LUE Assessment LUE Assessment: Within Functional Limits RLE Assessment RLE Assessment: Within Functional Limits (Based on functional observation) LLE Assessment LLE Assessment: Within Functional Limits (Based on functional observation) Therapeutic Exercise Outcome Assessments 6 Clicks (Mobility) Help from another person turning from your back to your side while in a flat bed without using bedrails: None Help from another person moving from lying on your back to sitting on the side of a flat bed without using bedrails: None Help from another person moving to and from a bed to a chair (including a wheelchair): None Help from another person standing up from a chair using your arms (e.g. wheelchair or bedside chair): None Help from another person to walk in hospital room: None Help from another person climbing 3-5 steps with a railing: None Mobility 6 Clicks T-Score: 24 Assessment/Plan PT Assessment PT Assessment: Patient is a 68 y/o female who presents at her baselinle level of function, independent for all mobility without skilled PT needs. PT to sign off. Evaluation/Treatment Tolerance: Patient tolerated treatment well Plan PT Plan: No skilled PT No Skilled PT: At baseline function PT Frequency: One time visit PT Discharge Recommendations: Ho (more content not included)... [facility] 03-27-2024 Note Occupational Therapy Occupational Therapy Evaluation Patient Name: Jess Bacon : 1955 Today's Date: 03/27/2024 Time In: 1026 Time Out: 1031 Jess Bacon is an 68 y.o. female who came from home with past medical history of overactive bladder, anxiety and vitamin D deficiency presented to [facility] as a transfer from [facility] for NSTEMI. General Subjective: friendly and cooperative, reports indep in room without issues Patient Active Problem List Diagnosis NSTEMI (non-ST elevated myocardial infarction) (CMS/HCC) Gastroenteritis Anxiety History reviewed. No pertinent past medical history. History reviewed. No pertinent surgical history. 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) Prior Functional Mobility: Independent without device Prior IADLs IADL History Homemaking Responsibilities: Yes Dynamic Standing Balance Dynamic Standing Balance Dynamic Standing Balance-Level of Assistance: Independent ADL ADL LE Dressing Assistance: Independent Transfers Transfers Transfer: (standing sink side upon arrival completing morning adls with nsg student , indep adl transfers) Objective General Assessments Activity Tolerance Endurance: Stage III Vision - Basic Assessment Current Vision: No visual deficits Sensation Light Touch: No apparent deficits Coordination Movements are Fluid and Coordinated: Yes Extremity Assessments RUE Assessment RUE Assessment: (reports no issues with UB / MMT deferred) Outcome Assessments AM-PAC 6 Clicks Putting on and taking off regular lower body clothing?: None (Independent) Bathing(Including washing,rinsing,drying)?: None (Independent) Toileting, which includes using the toilet,bedpan,or urinal?: None (Independent) Putting on and taking off regular upper body clothing?: None (Independent) Taking care of personal grooming such as brushing teeth?: None (Independent) Eating meals?: None (Independent) Total Score OT [facility]: 24 Assessment/Plan Plan OT Plan: No skilled OT No Skilled OT: At baseline function OT Discharge Recommendations: Home OT - Discharge Recommendations Placed: Yes OT Goals Multi-Disciplinary Problems (from Occupational Therapy) Active Problems Not on file [facility] 03-26-2024 Note Hospital Medicine Daily Progress Note - 03/26/2024 4:53 PM; Room: [address] [place] [address] Admission: 03/25/2024 9:23 PM; Length of stay: 1 days THE HOSPITALIST TEAM PREFERS TO USE [employer] CHAT FOR COMMUNICATION 7AM-7PM. IF I DO NOT RESPOND WITHIN 15 MINUTES, PLEASE PAGE ME/CALL THROUGH THE [employer] [facility]. FROM 7PM-7AM, PLEASE PAGE [phone](COVR) Code Status: Full Code Barriers to Discharge: stress test, GI eval Expected Discharge Date: 03/27 or 03/28 Discharge Destination: home Overview Patient is seen for evaluation and management of gastroenteritis. Subjective Patient seen and examined in the morning. She was doing well this morning. She did not have any chest pain since admission. However, troponin has peaked in 3s and it's trending down at this time. Physical Exam Visit Vitals BP 90/70 (BP Location: Right arm, Patient Position: Lying) Pulse 69 Temp 37 ???C (98.6 ???F) (Temporal) Resp 18 Intake/Output Summary (Last 24 hours) at 03/26/2024 1653 Last data filed at 03/26/2024 1651 Gross per 24 hour Intake 722.51 ml Output -- Net 722.51 ml Physical Exam Vitals reviewed. Constitutional: General: She is not in acute distress. Appearance: She is not ill-appearing or toxic-appearing. HENT: Head: Normocephalic and atraumatic. Mouth/Throat: Mouth: Mucous membranes are moist. Eyes: General: No scleral icterus. Extraocular Movements: Extraocular movements intact. Pupils: Pupils are equal, round, and reactive to light. Cardiovascular: Rate and Rhythm: Normal rate and regular rhythm. Pulmonary: Effort: Pulmonary effort is normal. No respiratory distress. Breath sounds: No stridor. Abdominal: General: There is no distension. Palpations: Abdomen is soft. There is no mass. Skin: Findings: No rash. Neurological: Mental Status: She is alert. Cranial Nerves: No cranial nerve deficit. Psychiatric: Mood and Affect: Mood normal. Behavior: Behavior normal. Thought Content: Thought content normal. Judgment: Judgment normal. Estimated body mass index is 21.99 kg/m??? as calculated from the following: Height as of this encounter: 1.549 m (5' 1 ). Weight as of this encounter: 52.8 kg (116 lb 6.4 oz). Active Inpatient Problems Principal Problem: NSTEMI (non-ST elevated myocardial infarction) ([facility]) Active Problems: Gastroenteritis Anxiety Assessment and Plan Gastroenteritis - improving - States that it started about 4 days ago - No sick contacts - She was having up to 8 bowel movements at the peak of the gastroenteritis - States that today, she had about 1 loose bowel movement, but not diarrhea Elevated troponin, either NSTEMI type I vs Demand ischemia - Has denied chest pain - Troponin has peaked at 3 - Currently on heparin drip - Cardiology planning stress test during this hospital stay Overactive bladder - Oxybutynin has been resumed VTE Prophylaxis: Heparin drip Scheduled Meds aspirin, 81 mg, oral, Daily atorvastatin, 40 mg, oral, Nightly oxybutynin XL, 10 mg, oral, Daily pantoprazole, 40 mg, oral, Daily heparin, 0-28 Units/kg/hr, Last Rate: 14 Units/kg/hr (03/26/24 1651) Pertinent Investigations Hematology: Results from last 7 days Lab Units 03/26/24 0511 03/25/24 2311 WBC AUTO 10*3/uL 7.11 8.24 HEMOGLOBIN g/dL 13.5 14.2 HEMATOCRIT % 40.8 44.6 MCV fL 87.6 91.8 PLATELETS AUTO 10*3/uL 179 201 INR -- 1.11* Chemistry: Results from last 7 days Lab Units 03/25/24 2311 SODIUM mmol/L 139 POTASSIUM mmol/L 3.8 CHLORIDE mmol/L 107 CO2 mmol/L 24 BUN mg/dL 12 CREATININE mg/dL 0.68 GLUCOSE mg/dL 105* MAGNESIUM mg/dL 2.0 CALCIUM mg/dL 8.6 PHOSPHORUS mg/dL 3.1 Results from last 7 days Lab Units 03/25/24 2311 AST U/L 32 ALT U/L 21 ALK PHOS U/L 35 BILIRUBIN TOTAL mg/dL 0.8 BILIRUBIN DIRECT mg/dL 0.1 Historical Values: (Includes values prior to this admission) Lab Results Component Value Date HDL 34 03/26/2024 LDL 101 03/26/2024 No results found for: [id number] , IRON , TIBC , C3 , C4 , SHAREE , CANCA , ASO , PSA , CEA , CA125 , CA199 , AFP , CA153 Imaging ECG 12 lead Normal sinus rhythm Possible Inferior infarct (cited on or before 25-MAR-2024) Abnormal ECG When compared with ECG of 25-MAR-2024 23:28, (unconfirmed) Nonspecific T wave abnormality has replaced inverted T waves in Inferior lead Nonspecific T wave abnormality has replaced inverted T waves in Lateral Discharge Planning Signed Maximino Cancino MD [facility] 03/26/2024 4:[address] [facility] 03-25-2024 Note Hospital Medicine History and Physical 03/25/2024 10:58 PM THE HOSPITALIST TEAM PREFERS TO USE [employer] FOR COMMUNICATION 7AM-7PM. IF I DO NOT RESPOND WITHIN 15 MINUTES, PLEASE PAGE ME/CALL THROUGH THE [facility]. FROM 7PM-7AM, PLEASE PAGE [phone](COVR) Chief Complaint No chief complaint on file. History of Present Illness Jess Bacon is an 68 y.o. female who came from home with past medical history of overactive bladder, anxiety and vitamin D deficiency presented to [facility] as a transfer from [facility] for NSTEMI. Patient reports that for the last 2 days she has been having diarrhea, nausea and vomiting. No sick contacts. She also had fever 2 days ago but nothing since. No blood in the stool. She also has some abdominal discomfort. She felt lightheaded and sick so she went to ER for evaluation. Patient CT of the abdomen came back negative for any acute changes. Patient's troponin came back significantly elevated and she had ST depression on EKG. They trended troponins and they were still elevated so cardiology team at [facility] was called and they wanted patient to be transferred forNSTEMI treatment to [facility]. Patient denies chest pain or increased shortness of breath. No history of heart problems. She states that she was once admitted for chest pain years ago but her stress test came back negative. She denies alcohol use. No fevers or chills. No dysuria. No other complaints. Review of System and Physical Exam Temp: [36.1 ???C (96.9 ???F)] 36.1 ???C (96.9 ???F) Heart Rate: [65] 65 Resp: [13] 13 BP: (117)/(61) 117/61 Physical Exam Constitutional: General: She is not in acute distress. Appearance: Normal appearance. HENT: Head: Normocephalic and atraumatic. Eyes: Conjunctiva/sclera: Conjunctivae normal. Cardiovascular: Rate and Rhythm: Normal rate and regular rhythm. Heart sounds: No murmur heard. No friction rub. No gallop. Pulmonary: Effort: Pulmonary effort is normal. No respiratory distress. Breath sounds: Normal breath sounds. No wheezing, rhonchi or rales. Abdominal: General: Abdomen is flat. There is no distension. Palpations: Abdomen is soft. Tenderness: There is abdominal tenderness (periumbilical). There is no guarding or rebound. Musculoskeletal: General: No swelling or deformity. Right lower leg: No edema. Left lower leg: No edema. Skin: General: Skin is warm and dry. Findings: No rash. Neurological: General: No focal deficit present. Mental Status: She is alert and oriented to person, place, and time. Psychiatric: Mood and Affect: Mood normal. Behavior: Behavior normal. Thought Content: Thought content normal. Judgment: Judgment normal. Review of Systems as mentioned in HPI Problem List Patient Active Problem List Diagnosis Date Noted NSTEMI (non-ST elevated myocardial infarction) ([facility]) 03/25/2024 Gastroenteritis 03/25/2024 Anxiety 03/25/2024 Assessment and Plan NSTEMI Gastroenteritis Anxiety Plan: Patient is admitted to stepdown telemetry bed. Cardiology consult. Will trend troponins. EKG, chest x-ray. Will start heparin drip. Echo tomorrow. Symptomatic treatment for gastroenteritis Labs are ordered Protonix 40 mg p.o. daily for GI prophylaxis Patient will be kept n.p.o. in case she will need procedure tomorrow Patient's home medications were resumed EPC cuffs VTE Prophylaxis: IV heparin ----- Focus of this inpatient stay will remain on problems that need acute care setting for care. We will review available studies and will order additional labs, imaging and other studies as appropriate. As needed medicines are ordered as appropriate. VTE Prophylaxis will be ordered as appropriate. Please see above for management plan for individual hospital problems. Home medications are reviewed and will be continued as appropriate. Patient will be continued to be followed during this hospital stay by a member of [facility]. Past Medical History History reviewed. No pertinent past medical history. Past Surgical History History reviewed. No pertinent surgical history. Social History Social History Socioeconomic History Marital status: Spouse name: Not on file Number of children: Not on file Years of education: Not on file Highest education level: Not on file Occupational History Not on file Tobacco Use Smoking status: Never Smokeless tobacco: Never Substance and Sexual Activity Alcohol use: Not on file Drug use: Not on file Sexual activity: Not on file Other Topics Concern Not on file Social History Narrative Not on file Social Determinants of Health Financial Resource Strain: Low Risk (03/25/2024) Overall Financial Resource Strain (CARDIA) Difficulty of Paying Living Expenses: Not hard at all Food Insecurity: No Food Insecurity (03/25/2024) Hunger Vital Sign Worried About Running Out of Food in the Last Year: Never true Ran Out o (more content not included)... [facility] Evaluation + Plan note Future Appointments Appointment Date:04/27/2024 01:00:00 PM Scheduled Provider: Location:[facility] Appointment Type: Medicare Wellness Subsequent [facility] Evaluation note Diagnosis Onset Date Low back pain acute [facility] Work Phone: Hospital course Narrative No data available for this section [facility] Hospital Discharge instructions No data available for this section [facility] Progress note No data available for this section [facility] Summary Purpose Family History No Family History Records Found Relationship Condition Age at Onset Recorded Date/T teresa father Pulmonary emphysema Unknown father Unknown mother Unknown Dementia Unknown Hypertension Unknown Advance Directives No Advanced Directives Records Found Advance Directive Response Recorded Date/ Time Advance Directives No January 08, 2021 4:12pm Chief Complaint and Reason for Visit Chief Complaint fell on table while cleaning ceiling fan W19.XXXA - Unspecified fall, initial encounter Reason for Visit Low back pain Additional Source Comments INFORMATION SOURCE (unrecogn ized section and content) DATE CREATED AUTHOR 07/21/2022 [facility] DATE CREATED AUTHOR AUTHOR'S ORGANIZ ATION 01/23/2024 [facility] EPIC DATE CREATED AUTHOR AUTHOR'S ORGANIZ ATION 05/02/2024 [facility] DATE CREATED AUTHOR AUTHOR'S ORGANIZ ATION 05/29/2024 [facility] DATE CREATED AUTHOR AUTHOR'S ORGANIZ ATION 05/31/2024 [facility] Patient Care team informatio n (unrecognized section and content) Team Status: Active Member Role Status Dates Luisito Roth MD Primary Care Provider Active Team Status: Inactive Member Role Status Dates Luisito Roth MD Primary Care Provider Active Start: May 27, 2024 End: May 27, 2024 Zoila العراقي APRN Attending Provider Active S tart: May 27, 2024 End: May 27, 2024 Team Status: Inactive Member Role Status Dates Zoila العراقي APRN Attending Provider Active S tart: May 27, 2024 End: May 27, 2024 Luisito Roth MD Primary Care Provider Active Start: May 27, 2024 End: May 27, 2024 Goals (unrecognized section and content) Goals may be documented in a n alternate section FOR RECORDS PERTAINING TO PATIENTS WHO ARE OR HAVE BEEN ENROLLED IN A CHEMICAL DEPENDENCY/SUBSTANCEABUSE PROGRAM, SOME INFORMATION MAY BE OMITTED. This clinical summary was aggregated from multiple sources. Caution should be exercised in using it in the provision of clinical care. This summary normalizes information from multiple sources, and as a consequence, information in this document may materially change the coding, format and clinical context of patient data. In addition, data may be omitted in some cases. CLINICAL DECISIONS SHOULD BE BASED ON THE PRIMARY CLINICAL RECORDS. [facility] provides no warranty or guarantee of the accuracy or completeness of information in this document.
== END 2024-05-31 11:51 | disposition home or self-care (01) ==
LOC: RAD 11:55
PROVIDERS: PCP Nurse Practitioner; Visit Provider Nurse Practitioner
DX: M54.50 Low back pain, unspecified (principal); M25.551 Pain in right hip
CPT/HCPCS: 73502

== ENCOUNTER 2024-06-07 08:56 | Outpatient (OUT) | payer BC, OTHER, SELFPAY ==
--- NOTE | 2024-06-07 08:58 | MM_ITS ---
Patient Name: JESS BACON MR#: [id number] : 1955 Exam Date: 06/07/2024 Ordering Doctor: MELODY SHEA . RADIOLOGY REPORT PROCEDURE: MM TOMOSYNTHESIS SCREENING BI COMPARISON: MG MAMM SCREEN [facility] W CAD, 06/06/2019. MM TOMOSYNTHESIS SCREENING BI, 03/16/2023. INDICATIONS: Screening for malignant neoplasm Calculator Name NCI Breast Cancer Risk Assessment Tool 5 Year Breast Cancer Risk 2.50% Lifetime Breast Cancer Risk 8.20% Personal Breast Cancer No Personal Ovarian Cancer No Treatments None Family Cancers None LOCATION: [facility] BREAST COMPOSITION: The breasts are extremely dense, which lowers the sensitivity of mammography. FINDINGS: DIAGNOSTIC CATEGORY 2--BENIGN FINDING. NO CHANGE FROM COMPARISON. Scattered benign-appearing calcifications are present. Scattered benign-appearing lymph nodes are present. RIGHT BREAST: No significant suspicious finding. LEFT BREAST: No significant suspicious finding. RECOMMENDATIONS: ROUTINE MAMMOGRAM AND CLINICAL EVALUATION IN 12 MONTHS. PLEASE NOTE: A NORMAL MAMMOGRAM DOES NOT EXCLUDE THE POSSIBILITY OF BREAST CANCER. A CLINICALLY SUSPICIOUS PALPABLE LUMP SHOULD BE BIOPSIED. Dictated by: Doug Lozano MD on 06/07/2024 at 10:33 Approved by: Doug Lozano MD on 06/07/2024 at 10:36
--- OUTSIDE RECORDS SUMMARY | 2024-06-07 09:20 | XMS_ITS | CCD ---
Author Organization [facility] Care Team Providers Care Medical Scientific Liaison Name Role Phone ABIOLA, DR GINA Berg Primary Care Unavailable PAY, DR ROBLES Admitting Unavailable PAY, DR ROBLES Attending Unavailable IVETTE RICHMOND Consulting Unavailable Millie Gonzalez Primary Care Physician [phone] LAUREANO AMARAL Referring Unavailable LAUREANO AMARAL Attending [...] Provider MD Luisito Roth Primary Care Provider [phone] Millie Gonzalez Attending Unavailable Luisito Roth Attending Unavailable CarlosMillie Attending Unavailable CarlosMillie Attending Unavailable CarlosMillie Attending Unavailable CarlosMillie Attending Unavailable CarlosMillie Attending Unavailable Luisito Roth Admitting Unavailable PHILLIP NUNEZ Attending Unavailable CarlosMillie Attending Unavailable CarlosMillie Attending Unavailable CarlosMillie Attending Unavailable Carlos Millie L Attending Unavailable Carlos Millie L Attending Unavailable CarlosMillie Attending Unavailable Zoila العراقي Attending Unavailable Zoila العراقي Admitting Unavailable Luisito Roth Primary Care Unavailable Allergies Allergy Classification Reported Allergen(s) Allergy Type Date of Onset Reaction(s) Facility (1 source) No Known Medication Allergies; Translations: [No Known Medication Allergies] Propensity to adverse reactions (disorder) [facility] Repository Medications Current Medications Medication Drug Class(es) [...] day(s), # 5 tab(s), Refills(s) 0, Pharmacy: [facility] #[id number], 158, cm, 10/29/23 13:27:00 EST, Height/Length Dosing, [...] Daily, # 90 tab(s), Refills(s) 3, Pharmacy: [facility], 157, cm, 05/25/23 15:27:00 EDT, [...] or chronic] 02-01-2024 Episodic E Codes: Fall (1 source) Fall; Translations: [Unspecified fall, initial encounter] 05-27-2024 Episodic Immunizations and screening for infectious [...] Unclassified (2 sources) Patient encounter status 03-03-2023 Unclassified (1 source) Low back pain, unspecified; Translations: [Low back pain, unspecified] Onset: 05-27-2024 Results Test Name Value Interpretation Reference Range Facil ity Ambulatory Visit Summaryon 0 05-29-2024 Ambulatory Visit Summary Ambulatory Visit Summary JESS BACON :1955 Visit Date:05/29/2024 Ambulatory Visit Instructions Your [...] Appointments 2023 2:30 PM EDT With: Where: [address] [address]- 2023 3:00 PM EDT With: Millie Florentino Where: [address] [address]- Medications What How Much When Why Instructions [...] for choosing us for your care. Normal [facility] Medicine Office/Clini c Noteon 05-29-2024 Family Medicine [...] pain, # 30 tab(s), Refills(s) 0, Pharmacy: [facility], 158, cm, 05/29/24 13:41:00 EDT, Height/Length Dosing, 52.5, kg, 05/29/24 13:41:00 EDT, Weight Dosing 2. Right low back pain (M54.50: Low back pain, unspecified) pt fell and landed on right lower back Ordered: tramadol, 50 mg = 1 tab(s), Oral, q12hr, PRN for pain, # 30 tab(s), Refills(s) 0, Pharmacy: [facility], 158, cm, 05/29/24 13:41:00 EDT, Height/Length Dosing, 52.5, kg, 05/29/24 13:41:00 EDT, Weight Dosing 3. BMI 21.0-21.9, adult (Z68.21: Body mass index [BMI] 21.0-21.9, adult) BMI education Ordered: tramadol, 50 mg = 1 tab(s), Oral, q12hr, PRN for pain, # 30 tab(s), Refills(s) 0, Pharmacy: [facility], 158, cm, 05/29/24 13:41:00 EDT, Height/Length [...] pain, # 30 tab(s), Refills(s) 0, Pharmacy: [facility], 158, cm, 05/29/24 13:41:00 EDT, Height/Length [...] vac - Not Given Patient Refuses Normal [facility] Comment on above: Result Comment: Elec tronically Signed By: Millie Florentino\.br\Date and Time Signed: 05/29/24 14:13 EDT Provider Letteron 05-29-2024 Provider Letter Provider Letter May 29, 2024 [address]ESS [address]ON [address] [place] [id number] : 1955 To Whom It May Concern, Please excuse above patient from work due to medical Date of Illness: From: 05-29-24 To: 05-30-24 May Return to Work On: 05-31-24 Restrictions: _ Comments: _ Sincerely, Normal [facility] XR lumbar spine min 4V*on XR lumbar spine min 4V* [facility] Main [address] [address] XRay Report Signed Patient: Jess Bacon MR#: [id number] : 1955 Acct:[id number] Age/Sex: 68 / F ADM Date: 05/27/24 Loc: XDUCLY [facility]: Zoila العراقي APRN Copies to: Zoila العراقي APRN Ordering Provider: [...] PROCESS. Impression dictated by: Eleuterio Marinelli Jr., D.OShona05/27/2024 2:47 PM Dictation Location: [place] [address] Transcribed By: [facility] 05/27/24 1447 Dictated By: Eleuterio Marinelli Jr, DO 05/27/24 1446 Signed By: 05/27/24 1447 Normal [facility] Ambulatory Visit Summaryon 0 05-12-2024 Ambulatory Visit Summary Ambulatory Visit Summary JESS BACON Sola :1955 Visit Date:05/12/2024 Ambulatory Visit Instructions Your [...] Appointments 2023 2:30 PM EDT With: Where: [address] [address]- 2023 3:00 PM EDT With: Millie Florentino Where: [address] [address]- Someone Will Contact You Regarding These Appointments [facility] External [facility] 10:37:00 EDT, Foot pain, right Non-smoker BMI 20.0-20.9, adult Medications What How Much When Why Instructions New meloxicam (meloxicam 15 mg Tab) 1 Tablets By Mouth Every day Foot pain, right Non-smoker BMI 20.0-20.9, adult Pickup at [facility] 142 New methylPREDNISolone (Medrol 4 mg Tab) 1 Packets By Mouth As Directed Foot pain, right Non-smoker BMI 20.0-20.9, adult Duration: 6 Days as directed on package labeling Pickup at [facility] 142 Unchanged aspirin 81 Milligram By Mouth [...] Gram By Mouth Every day Pharmacy Information [facility]: [address] [place], [place] [id number] [phone] Allergies No Known Medication Allergies Problems Ongoing [...] choosing us for your care. Normal [facility] Family Medicine Office/Clini c Noteon 05-12-2024 Family [...] Daily, # 30 tab(s), Refills(s) 0, Pharmacy: [facility], 158, cm, 05/12/24 10:25:00 EDT, Height/Length Dosing, 52.3, kg, 05/12/24 10:25:00 EDT, Weight Dosing methylPREDNISolone, = 1 packet(s), Oral, As Directed, as directed on package labeling, X 6 day(s), # 21 tab(s), Refills(s) 0, Pharmacy: [facility], 158, cm, 05/12/24 10:25:00 EDT, Height/Length Dosing, 52.3, kg, 05/12/24 10:25:00 EDT, Weight Dosing [facility] External Ambulatory Referral 2. Non-smoker (Z78.9: Other specified health status) continue not smoking Ordered: meloxicam, 15 mg = 1 tab(s), Oral, Daily, # 30 tab(s), Refills(s) 0, Pharmacy: [facility] 1429, 158, cm, 05/12/24 10:25:00 EDT, Height/Length Dosing, 52.3, kg, 05/12/24 10:25:00 EDT, Weight Dosing methylPREDNISolone, = 1 packet(s), Oral, As Directed, as directed on package labeling, X 6 day(s), # 21 tab(s), Refills(s) 0, Pharmacy: [facility] 1429, 158, cm, 05/12/24 10:25:00 EDT, Height/Length Dosing, 52.3, kg, 05/12/24 10:25:00 EDT, Weight Dosing Body Mass Index (BMI) documented 3008F Current tobacco non-user 1036F Depression Screening Negative 3352F [facility] External Ambulatory Referral Influenza immunization status assessed [...] Daily, # 30 tab(s), Refills(s) 0, Pharmacy: [facility], 158, cm, 05/12/24 10:25:00 EDT, Height/Length Dosing, 52.3, kg, 05/12/24 10:25:00 EDT, Weight Dosing methylPREDNISolone, = 1 packet(s), Oral, As Directed, as directed on package labeling, X 6 day(s), # 21 tab(s), Refills(s) 0, Pharmacy: [facility], 158, cm, 05/12/24 10:25:00 EDT, Height/Length Dosing, 52.3, kg, 05/12/24 10:25:00 EDT, Weight Dosing Body Mass Index (BMI) documented 3008F Current tobacco non-user 1036F Depression Screening Negative 3352F [facility] External Ambulatory Referral Influenza immunization status assessed [...] Appendectomy, Cholecystecto (more content not included)... Normal [facility] Comment on above: Result Comment: Elec tronically Signed By: Millie Florentino\.br\Date and Time Signed: 05/12/24 10:43 EDT Follow-Upon 04-21-2024 Follow-Up [id number] Jess Bacon 1955 F Date Provider Department Center 04/21/2024 3848-[facility]IS [facility] No family history on file Level of Service:46695 MO OFFICE/OUTPATIENT ESTABLISHED LOW MDM 20 MIN Reason for Visit and Comments: Follow-up [937266] - [facility] Follow up Concerns: No further cardiac concerns/symptoms. [facility] 04-13-20 [facility] Case Information Case Priority: None Programs: -- Referral Source: Ink Blender Referral Reason: Care coordination Case Type: Transition Care Management Risk Score: -- Case Status: Enrolled (March 31, 2024) Date Assigned: March 31, 2024 Assigned By: Michael Murray Date Enrolled: March 31, 2024 Assigned Primary Personnel: Michael Murray Assigned Secondary Personnel: -- Case Physician: Luisito Roth MD Ongoing Acute bronchitis Acute frontal sinusitis Anxiety [...] Patient has cardio follow up tomorrow at [facility] with [facility]. Patient denies any further questions or concerns. Communication Events Date: April 13, 2024 Method: Phone call Type: Outbound Duration (min): 4 Outcome: Case discussion Contact Type: online marketing coordinator Contact Name: Michael Murray Notes: TCM#2- see tcm note. Created By: Michael Murray Date: March 31, 2024 Method: Phone call Type: Outbound Duration (min): 15 Outcome: Case discussion Contact Type: online marketing coordinator Contact Name: Michael Murray Notes: TCM#1- see tcm note. Created By: Michael Murray [facility] Ambulatory Visit Summaryon 0 04-06-2024 Ambulatory Visit Summary Ambulatory Visit Summary JESS BACON :1955 Visit Date:04/06/2024 Ambulatory Visit Instructions Your Diagnosis Hospital discharge follow-up Gastritis NSTEMI (non-ST elevated myocardial infarction) Nonsmoker Your Care Team Attending Physician - Gonzalez MACIAS, Luisito Candelaria Primary Care Physician - Millie Florentino This [...] Follow-Up Appointments Wednesday 3:00 PM EDT Where: [address] [phone]- 2023 1:00 PM EDT Where: [address] [address]- Medications What How Much When Why Instructions [...] medicines. These include steroids, antibiotics, and some ongb-bbv-jxekgpi medicines, such as aspirin or ibuprofen. ? [...] medical histor (more content not included)... Normal [facility] Family Medicine Office/Clini c Noteon 04-06-2024 Family Medicine Office/Clinic Note Family Medicine Office/Clinic Note HPI Staff Jess is a 68 year old female presenting for [facility] hospital follow up Patient of Millie Gonzalez, no open hours on Millie's schedule and she had to have this f/u Brought log of bp readings with her TCM: Hospital: [facility] Admission date: 03/25/24 Discharge date: 03/30/24 Symptoms the patient presented with: abd pain, N&V, diarrhea Dx non ST NC, type II demand ischemia, GE, overactive bladder [...] Schizoaffective disorder (more content not included)... Normal [facility] Comment on above: Result Comment: Elec troadileneally Signed By: Luisito Roth MD\.br\Date and Time Signed: 04/06/24 14:53 EDT 36on 04-04-2024 36 Operations Director spoke with patient regarding a [facility] hospital follow up appointment for abd pain and nausea and vomiting. Patient stated she would like to follow up with her PCP. Normal [facility] 36on 03-31-2024 36 Post Discharge Call Good morning, I am Geovanna Ram RN a lead nurse from [facility]. I am calling you to follow up [...] 03/31/2024 Patient Name Jess Bacon Date 03/31/24 [facility] 03-31-20 [facility] Case Information Case Priority: None Programs: -- Referral Source: Ink Blender Referral Reason: Care coordination Case Type: Transition [...] Interventions Care Plan Progress Note Admit Date: [facility] Date of Discharge: 03/30/24 Follow-up appointment scheduled? yes, Dr. Roth [facility] 04/06/24 at 1500 Did you understand your [...] gastroenteritis, overactive bladder. Patient was transferred from [facility] to [facility] on 03/25/24, she presented with abdominal cramping, [...] returns to work on Wednesday04/03/24. 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 Patient of Ronald Gonzalez scheduled for TCM follow up with Dr. Roth d/t scheduling conflicts. 04/06/24 at 1500 and to bring medications, cardio f/u 04/14/24, Dr. Polo [facility]. CN explained TCM program and gave CN contact number. Communication Events Date: March 31, 2024 Method: Phone call Type: Outbound Duration (min): 15 Outcome: Case discussion Contact Type: online marketing coordinator Contact Name: Michael Murray Notes: TCM#1- see tcm note. Created By: Michael Murray [facility] Telephoneon 03-31-2024 Telephone [phone] Jess Bacon 1955 F Date Provider Department Center 03/31/2024 1600-GEOVANNA RAM [facility] No family history on file Reason for Visit and Comments: Hospital Follow-up [832] [facility] 30on 03-30-2024 30 The patient is Moderately [...] Licensed In (more content not included)... Normal [facility] CBCon 03-30-2024 Erythrocyte distribution width (RBC) [Ratio] 13.7 % Normal 11.5-15.0 [facility] Comment on above: Performed By: #### L [id number] ####[facility] (BEAKER)[address] [place] [address] ERYTHROCYTE MEAN CORPUSCULAR HEMOGLOBIN CONCENTRATION (G/DL) BY AUTOMATED 33.0 g/dL Normal 32.0-35.0 [facility] Comment on above: Performed By: #### L [id number] ####[facility] (BEAKER)[address] [place] [address] Hematocrit (Bld) [Volume fraction] 42.4 % Normal 36.0-48.0 [facility] Comment on above: Performed By: #### L [id number] ####[facility] ([facility]ER)[address] [place] [address] Hemoglobin (Bld) [Mass/Vol] 14.0 g/dL Normal 12.0-15.0 [facility] Comment on above: Performed By: #### L [id number] ####[facility] [place] [address] MCH (RBC) [Entitic mass] 28.6 pg Normal 27.0-33.0 [facility] Comment on above: Performed By: #### L [id number] ####[facility] ([facility] [place] [address] MCV (RBC) [Entitic vol] 86.7 fL Normal 82.0-98.0 [facility] Comment on above: Performed By: #### L [id number] ####[facility] ([facility] [place] [address] PLATELETS (10*3/UL) IN BLOOD AUTOMATED COUNT 188 10*3/uL Normal 150-400 [facility] Comment on above: Performed By: #### L [id number] ####[facility] ([facility])[address] [place] [address] RBC (Bld) [#/Vol] 4.89 10*6/uL Normal 3.80-5.00 [facility] Comment on above: Performed By: #### L [id number] ####[facility] ([facility] [place] [address] WBC (Bld) [#/Vol] 6.22 10*3/uL Normal 4.00-10.60 [facility] Comment on above: Performed By: #### L [id number] ####[facility] ([facility])[address] [place] [address] COMPREHENSIVE METABOLIC PANE Mynor 03-30-2024 Albumin [Mass/Vol] 3.8 g/dL Normal 3.5-5.7 [facility] Comment on above: Performed By: #### L [id number] ####[facility] ([facility])[address] [place] [address] ALP [Catalytic activity/Vol] 36 U/L Normal 34-104 [facility] Comment on above: Performed By: #### L [id number] ####[facility] ([facility]ER)[address] [place] [address] ALT [Catalytic activity/Vol] 45 U/L Normal 7-52 [facility] Comment on above: Performed By: #### L [id number] ####[facility] ([facility] [place] [address] Anion gap [Moles/Vol] 9 mmol/L Normal 7-20 [facility] Comment on above: Performed By: #### L [id number] ####[facility] ([facility])[address] [place] [address] AST [Catalytic activity/Vol] 49 U/L High 13-39 [facility] Comment on above: Performed By: #### L [id number] ####[facility] ([facility])[address] [place] [address] Bilirubin [Mass/Vol] 0.6 mg/dL Normal 0.3-1.0 [facility] Comment on above: Performed By: #### L [id number] ####[facility] ([facility])[address] [place] [address] Calcium [Mass/Vol] 9.0 mg/dL Normal 8.6-10.3 [facility] Comment on above: Performed By: #### L [id number] ####[facility] ([facility] [place] [address] Chloride [Moles/Vol] 103 mmol/L Normal 98-107 [facility] Comment on above: Performed By: #### L [id number] ####[facility] ([facility]ER)[address] [place] [address] CO2 [Moles/Vol] 30 mmol/L Normal 21-31 [facility] Comment on above: Performed By: #### L [id number] ####[facility] ([facility]AKER)[address] [place] [address] Creatinine [Mass/Vol] 0.65 mg/dL Normal 0.60-1.20 [facility] Comment on above: Performed By: #### L [id number] ####[facility] ([facility])[address] [place] [address] GLOMERULAR FILTRATION RATE ML/MIN/1.73 SQ M.PREDICTED 95.8 mL/min/1.73m*2 Normal >[address] [facility] Comment on above: Result Comment: The [facility]???s estimated glomerular filtration rate (eGFR) will [...] of individuals. Performed By: #### L [id number] ####[facility] ([facility])[address] [place] [address] Glucose [Mass/Vol] 91 mg/dL Normal 70-100 [facility] Comment on above: Performed By: #### L [id number] ####[facility] ([facility])[address] [place] [address] Potassium [Moles/Vol] 4.3 mmol/L Normal 3.5-5.1 [facility] Comment on above: Performed By: #### L [id number] ####[facility] ([facility])[address] [place] [address] Protein [Mass/Vol] 6.1 g/dL Normal 6.0-8.3 [facility] Comment on above: Performed By: #### L [id number] ####[facility] ([facility])[address] [place] [address] Sodium [Moles/Vol] 138 mmol/L Normal 136-145 [facility] Comment on above: Performed By: #### L [id number] ####[facility] ([facility])[address] [place] [address] Urea nitrogen [Mass/Vol] 18 mg/dL Normal 03-30 [facility] Comment on above: Performed By: #### L [id number] ####[facility] ([facility])[address] [place] [address] UREA NITROGEN/CREATINI NE (MASS RATIO) IN SER/PLAS 27.7 Normal [facility] Comment on above: Performed By: #### L [id number] ####[facility] ([facility])[address] [place] [address] 30on 03-29-2024 30 Problem: Pain - Adul [...] and behaviors that affect risk of falls [place] fall precautions as indicated by assessment Educate [...] maintained or improved Outcome: Progressing Flowsheets (Taken 03/29/2024 7177) Care Plan - Patient's Chronic Conditions and [...] and prevent overall improvement and discharge Normal [facility] 30 Daily Case Managemen t Update [...] Home OT Recommendations: Home New Consults: Normal [facility] 30 The patient is Moderately Stable - Low risk of patient condition declining or worsening The patient's goals for the shift include comfort/rest The clinical goals for the shift include stable vital signs Problem: Neurosensory - Adult Goal: Achieves stable or improved neurological status Outcome: Progressing Flowsheets (Taken 03/29/2024 0754) Achieves stable or improved neurological status: Assess [...] function Outc (more content not included)... Normal [facility] CBCon 03-29-2024 Erythrocyte distribution width (RBC) [Ratio] 13.6 % Normal 11.5-15.0 [facility] Comment on above: Performed By: #### L [id number] ####[facility] ([facility])[address] [place] [address] ERYTHROCYTE MEAN CORPUSCULAR HEMOGLOBIN CONCENTRATION (G/DL) BY AUTOMATED 32.5 g/dL Normal 32.0-35.0 [facility] Comment on above: Performed By: #### L [id number] ####[facility] ([facility])[address] [place] [address] Hematocrit (Bld) [Volume fraction] 42.8 % Normal 36.0-48.0 [facility] Comment on above: Performed By: #### L [id number] ####[facility] ([facility])[address] [place] [address] Hemoglobin (Bld) [Mass/Vol] 13.9 g/dL Normal 12.0-15.0 [facility] Comment on above: Performed By: #### L [id number] ####[facility] ([facility])[address] [place] [address] MCH (RBC) [Entitic mass] 29.0 pg Normal 27.0-33.0 [facility] Comment on above: Performed By: #### L [id number] ####[facility] ([facility])[address] [place] [address] MCV (RBC) [Entitic vol] 89.4 fL Normal 82.0-98.0 [facility] Comment on above: Performed By: #### L [id number] ####[facility] ([facility])[address] [place] [address] PLATELETS (10*3/UL) IN BLOOD AUTOMATED COUNT 182 10*3/uL Normal 150-400 [facility] Comment on above: Performed By: #### L [id number] ####[facility] ([facility])[address] [place] [address] RBC (Bld) [#/Vol] 4.79 10*6/uL Normal 3.80-5.00 [facility] Comment on above: Performed By: #### L [id number] ####[facility] ([facility])[address] [place] [address] WBC (Bld) [#/Vol] 5.41 10*3/uL Normal 4.00-10.60 [facility] Comment on above: Performed By: #### L [id number] ####[facility] ([facility])[address] [place] [address] COMPREHENSIVE METABOLIC PANE Mynor 03-29-2024 Albumin [Mass/Vol] 3.7 g/dL Normal 3.5-5.7 [facility] Comment on above: Performed By: #### L [id number] ####[facility] ([facility])[address] [place] [address] ALP [Catalytic activity/Vol] 34 U/L Normal 34-104 [facility] Comment on above: Performed By: #### L [id number] ####[facility] [place] [address] ALT [Catalytic activity/Vol] 24 U/L Normal 7-52 [facility] Comment on above: Performed By: #### L [id number] ####[facility] ([facility])[address] [place] [address] Anion gap [Moles/Vol] 10 mmol/L Normal 7-20 [facility] Comment on above: Performed By: #### L [id number] ####[facility] ([facility]ER)[address] [place] [address] AST [Catalytic activity/Vol] 31 U/L Normal 13-39 [facility] Comment on above: Performed By: #### L [id number] ####[facility] ([facility]ER)[address] [place] [address] Bilirubin [Mass/Vol] 0.7 mg/dL Normal 0.3-1.0 [facility] Comment on above: Performed By: #### L [id number] ####[facility] ([facility])[address] [place] [address] Calcium [Mass/Vol] 9.1 mg/dL Normal 8.6-10.3 [facility] Comment on above: Performed By: #### L [id number] ####[facility] ([facility])[address] [place] [address] Chloride [Moles/Vol] 105 mmol/L Normal 98-107 [facility] Comment on above: Performed By: #### L [id number] ####[facility] ([facility])[address] [place] [address] CO2 [Moles/Vol] 30 mmol/L Normal 21-31 [facility] Comment on above: Performed By: #### L [id number] ####[facility] ([facility])[address] [place] [address] Creatinine [Mass/Vol] 0.76 mg/dL Normal 0.60-1.20 [facility] Comment on above: Performed By: #### L [id number] ####[facility] ([facility])[address] [place] [address] GLOMERULAR FILTRATION RATE ML/MIN/1.73 SQ M.PREDICTED 85.3 mL/min/1.73m*2 Normal >60.[address] [facility] Comment on above: Result Comment: The [facility]???s estimated glomerular filtration rate (eGFR) will [...] of individuals. Performed By: #### L [id number] ####[facility] ([facility])[address] [place] [address] Glucose [Mass/Vol] 100 mg/dL Normal 70-100 [facility] Comment on above: Performed By: #### L [id number] ####[facility] ([facility])[address] [place] [address] Potassium [Moles/Vol] 4.8 mmol/L Normal 3.5-5.1 [facility] Comment on above: Performed By: #### L [id number] ####[facility] ([facility])[address] [place] [address] Protein [Mass/Vol] 6.0 g/dL Normal 6.0-8.3 [facility] Comment on above: Performed By: #### L [id number] ####[facility] ([facility])[address] [place] [address] Sodium [Moles/Vol] 140 mmol/L Normal 136-145 [facility] Comment on above: Performed By: #### L [id number] ####[facility] ([facility])[address] [place] [address] Urea nitrogen [Mass/Vol] 16 mg/dL Normal 7-25 [facility] Comment on above: Performed By: #### L [id number] ####[facility] ([facility])[address] [place] [address] UREA NITROGEN/CREATINI NE (MASS RATIO) IN SER/PLAS 21.1 Normal [facility] Comment on above: Performed By: #### L [id number] ####[facility] ([facility])[address] [place] [address] HPon 03-29-2024 HP H&P reviewed. The patient was examined and there are no changes to the H&P. Jess Bacon is a 68 y.o. female with no known past medical history, no medications at home presented to the hospital due to elevated troponin the patient initially went to [facility] due to symptoms of abdominal pain, nausea vomiting diarrhea up to 8 times a day, watery consistency, referred to [facility] for NSTEMI. Lexiscan Myocardial Perfusion Stress Tests is positive at the inferolateral section. Patient will undergo diagnostic CORS. [facility] 30on 03-28-2024 30 The patient is Moderately Stable - Low risk of patient condition declining or worsening The patient's goals for the shift include comfort, rest The clinical goals for the shift include stable vitals, comfort [facility] 30 Daily Case Managemen t Update Multidisciplinary [...] Recommendations: Home OT Recommendations: Home New Consults: [facility] 30 The patient is Moderately Stable - [...] difficulty Respiratory therapy support as indicated Normal [facility] CBCon 03-28-2024 Erythrocyte distribution width (RBC) [Ratio] 13.7 % Normal 11.5-15.0 [facility] Comment on above: Performed By: #### L [id number] ####[facility] ([facility])[address] [place] [address] ERYTHROCYTE MEAN CORPUSCULAR HEMOGLOBIN CONCENTRATION (G/DL) BY AUTOMATED 32.3 g/dL Normal 32.0-35.0 [facility] Comment on above: Performed By: #### L [id number] ####[facility] ([facility])[address] [place] [address] Hematocrit (Bld) [Volume fraction] 40.3 % Normal 36.0-48.0 [facility] Comment on above: Performed By: #### L [id number] ####[facility] ([facility])[address] [place] [address] Hemoglobin (Bld) [Mass/Vol] 13.0 g/dL Normal 12.0-15.0 [facility] Comment on above: Performed By: #### L [id number] ####[facility] ([facility])[address] [place] [address] MCH (RBC) [Entitic mass] 28.8 pg Normal 27.0-33.0 [facility] Comment on above: Performed By: #### L [id number] ####[facility] ([facility])[address] [place] [address] MCV (RBC) [Entitic vol] 89.2 fL Normal 82.0-98.0 [facility] Comment on above: Performed By: #### L [id number] ####[facility] ([facility])[address] [place] [address] PLATELETS (10*3/UL) IN BLOOD AUTOMATED COUNT 179 10*3/uL Normal 150-400 [facility] Comment on above: Performed By: #### L [id number] ####[facility] ([facility])[address] [place] [address] RBC (Bld) [#/Vol] 4.52 10*6/uL Normal 3.80-5.00 [facility] Comment on above: Performed By: #### L [id number] ####[facility] [place] [address] WBC (Bld) [#/Vol] 6.25 10*3/uL Normal 4.00-10.60 [facility] Comment on above: Performed By: #### L [id number] ####[facility] ([facility])[address] [place] [address] COMPREHENSIVE METABOLIC PANE Mynor 03-28-2024 Albumin [Mass/Vol] 3.5 g/dL Normal 3.5-5.7 [facility] Comment on above: Performed By: #### L [id number] ####[facility] [place] [address] ALP [Catalytic activity/Vol] 32 U/L Low 34-104 [facility] Comment on above: Performed By: #### L [id number] ####[facility] ([facility])[address] [place] [address] ALT [Catalytic activity/Vol] 13 U/L Normal 7-52 [facility] Comment on above: Performed By: #### L [id number] ####[facility] ([facility])[address] [place] [address] Anion gap [Moles/Vol] 9 mmol/L Normal 7-20 [facility] Comment on above: Performed By: #### L [id number] ####[facility] ([facility] [place] [address] AST [Catalytic activity/Vol] 16 U/L Normal 13-39 [facility] Comment on above: Performed By: #### L [id number] ####[facility] ([facility])[address] [place] [address] Bilirubin [Mass/Vol] 0.6 mg/dL Normal 0.3-1.0 [facility] Comment on above: Performed By: #### L [id number] ####[facility] ([facility] [place] [address] Calcium [Mass/Vol] 8.7 mg/dL Normal 8.6-10.3 [facility] Comment on above: Performed By: #### L [id number] ####[facility] ([facility])[address] [place] [address] Chloride [Moles/Vol] 106 mmol/L Normal 98-107 [facility] Comment on above: Performed By: #### L [id number] ####[facility] ([facility])[address] [place] [address] CO2 [Moles/Vol] 29 mmol/L Normal 21-31 [facility] Comment on above: Performed By: #### L [id number] ####[facility] ([facility])[address] [place] [address] Creatinine [Mass/Vol] 0.71 mg/dL Normal 0.60-1.20 [facility] Comment on above: Performed By: #### L [id number] ####[facility] ([facility])[address] [place] [address] GLOMERULAR FILTRATION RATE ML/MIN/1.73 SQ M.PREDICTED 92.6 mL/min/1.73m*2 Normal >60.[address] [facility] Comment on above: Result Comment: The [facility]???s estimated glomerular filtration rate (eGFR) will [...] of individuals. Performed By: #### L [id number] ####[facility] ([facility] [place] [address] Glucose [Mass/Vol] 92 mg/dL Normal 70-100 [facility] Comment on above: Performed By: #### L [id number] ####[facility] ([facility])[address] [place] [address] Potassium [Moles/Vol] 4.3 mmol/L Normal 3.5-5.1 [facility] Comment on above: Performed By: #### L [id number] ####[facility] ([facility])[address] [place] [address] Protein [Mass/Vol] 5.6 g/dL Low 6.0-8.3 [facility] Comment on above: Performed By: #### L [id number] ####[facility] ([facility])[address] [place] [address] Sodium [Moles/Vol] 140 mmol/L Normal 136-145 [facility] Comment on above: Performed By: #### L [id number] ####[facility] ([facility])[address] [place] [address] Urea nitrogen [Mass/Vol] 17 mg/dL Normal - [facility] Comment on above: Performed By: #### L [id number] ####[facility] ([facility])[address] [place] [address] UREA NITROGEN/CREATINI NE (MASS RATIO) IN SER/PLAS 23.9 Normal [facility] Comment on above: Performed By: #### L [id number] ####[facility] ([facility])[address] [place] [address] Prep for Procedureon 024 Prep for Procedure [id number] Jess Bacon 1955 F Date Provider Department Center 03/28/2024 [facility] No family history on file Normal [facility] TROPONIN Ion 03-28-2024 Troponin I.cardiac [Mass/Vol] 0.62 ng/mL Critically high 0.00-0.04 [facility] Comment on above: Result Comment: M-MO EVIOUS CRITICAL RESULT Previous result verified on 03/28/2024 0018 on specimen/case [id number] called with component Troponin I for procedure Troponin I with value 0.99 ng/mL. Performed By: #### L [id number] ####[facility] ([facility])[address] [place] [address] 30on 03-27-2024 30 Daily Case Managemen t Update Multidisciplinary rounds have been completed. Barriers to Discharge et per Progress Note/s: Original DA from [facility] on 7-20 for NSTEMI. Hep gtt. TTE today et [...] OT? Answer: discharge recommendations 03/26/24 1654 Normal [facility] 30 The patient is Moderately Stable - Low risk of patient condition declining or worsening The patient's goals for the shift include complete testing The clinical goals for the shift include vss Over the shift, the patient did not make progress toward the following goals. Barriers to progression include . Recommendations to address these barriers include . Normal [facility] ANTI-XA (HEPARIN LEVEL)on HEPARIN UNFRACTIONATED (U/ML) IN PPP BY CHROMOGENIC METHOD 0.37 IU/mL Normal 0.3-0.7 [facility] Comment on above: Order Comment: Check anti-Xa level every 6 hours while on heparin infusion, or per protocol. Result Comment: [place] roxaban and Apixaban will interfere with the anti Xa assay used to monitor UFH and LMWH. Performed By: #### L [id number] #### [facility] ([facility]) [address] [place] [address] CBCon 03-27-2024 Erythrocyte distribution width (RBC) [Ratio] 13.7 % Normal 11.5-15.0 [facility] Comment on above: Performed By: #### L [id number] #### [facility] ([facility]) [address] [place] [address] ERYTHROCYTE MEAN CORPUSCULAR HEMOGLOBIN CONCENTRATION (G/DL) BY AUTOMATED 32.4 g/dL Normal 32.0-35.0 [facility] Comment on above: Performed By: #### L [id number] #### [facility] ([facility]) [address] [place] [address] Hematocrit (Bld) [Volume fraction] 41.0 % Normal 36.0-48.0 [facility] Comment on above: Performed By: #### L [id number] #### [facility] ([facility]) [address] [place] [address] Hemoglobin (Bld) [Mass/Vol] 13.3 g/dL Normal 12.0-15.0 [facility] Comment on above: Performed By: #### L [id number] #### [facility] ([facility]) [address] [place] [address] MCH (RBC) [Entitic mass] 28.5 pg Normal 27.0-33.0 [facility] Comment on above: Performed By: #### L [id number] #### [facility] ([facility]) [address] [place] [address] MCV (RBC) [Entitic vol] 88.0 fL Normal 82.0-98.0 [facility] Comment on above: Performed By: #### L [id number] #### [facility] ([facility]) [address] [place] [address] PLATELETS (10*3/UL) IN BLOOD AUTOMATED COUNT 182 10*3/uL Normal 150-400 [facility] Comment on above: Performed By: #### L [id number] #### [facility] ([facility]) [address] [place] [address] RBC (Bld) [#/Vol] 4.66 10*6/uL Normal 3.80-5.00 [facility] Comment on above: Performed By: #### L [id number] #### [facility] ([facility]) [address] [place] [address] WBC (Bld) [#/Vol] 5.82 10*3/uL Normal 4.00-10.60 [facility] Comment on above: Performed By: #### L [id number] #### [facility] ([facility]) [address] [place] [address] COMPREHENSIVE METABOLIC PANE Mynor 03-27-2024 Albumin [Mass/Vol] 3.4 g/dL Low 3.5-5.7 [facility] Comment on above: Performed By: #### L [id number] #### [facility] ([facility]) [address] [place] [address] ALP [Catalytic activity/Vol] 33 U/L Low 34-104 [facility] Comment on above: Performed By: #### L [id number] #### [facility] ([facility]) [address] [place] [address] ALT [Catalytic activity/Vol] 13 U/L Normal 7-52 [facility] Comment on above: Performed By: #### L [id number] #### [facility] ([facility]) [address] [place] [address] Anion gap [Moles/Vol] 11 mmol/L Normal 7-20 [facility] Comment on above: Performed By: #### L [id number] #### [facility] ([facility]) [address] [place] [address] AST [Catalytic activity/Vol] 18 U/L Normal 13-39 [facility] Comment on above: Performed By: #### L [id number] #### [facility] ([facility]) [address] [place] [address] Bilirubin [Mass/Vol] 0.4 mg/dL Normal 0.3-1.0 [facility] Comment on above: Performed By: #### L [id number] #### [facility] ([facility]) [address] [place] [address] Calcium [Mass/Vol] 8.6 mg/dL Normal 8.6-10.3 [facility] Comment on above: Performed By: #### L [id number] #### [facility] ([facility]) [address] [place] [address] Chloride [Moles/Vol] 107 mmol/L Normal 98-107 [facility] Comment on above: Performed By: #### L [id number] #### [facility] ([facility]) [address] [place] [address] CO2 [Moles/Vol] 28 mmol/L Normal 21-31 [facility] Comment on above: Performed By: #### L [id number] #### [facility] ([facility]) [address] [place] [address] Creatinine [Mass/Vol] 0.69 mg/dL Normal 0.60-1.20 [facility] Comment on above: Performed By: #### L [id number] #### [facility] ([facility]) [address] [place] [address] GLOMERULAR FILTRATION RATE ML/MIN/1.73 SQ M.PREDICTED 94.5 mL/min/1.73m*2 Normal >60.[address] [facility] Comment on above: Result Comment: The [facility]???s estimated glomerular filtration rate (eGFR) will [...] individuals. Performed By: #### L [id number] #### [facility] ([facility]) [address] [place] [address] Glucose [Mass/Vol] 92 mg/dL Normal 70-100 [facility] Comment on above: Performed By: #### L [id number] #### [facility] ([facility]) [address] [place] [address] Potassium [Moles/Vol] 4.2 mmol/L Normal 3.5-5.1 [facility] Comment on above: Performed By: #### L [id number] #### [facility] ([facility]) [address] [place] [address] Protein [Mass/Vol] 5.4 g/dL Low 6.0-8.3 [facility] Comment on above: Performed By: #### L [id number] #### [facility] ([facility]) [address] [place] [address] Sodium [Moles/Vol] 142 mmol/L Normal 136-145 [facility] Comment on above: Performed By: #### L [id number] #### [facility] ([facility]) [address] [place] [address] Urea nitrogen [Mass/Vol] 16 mg/dL Normal 7-25 [facility] Comment on above: Performed By: #### L [id number] #### [facility] ([facility]) [address] [place] [address] UREA NITROGEN/CREATINI NE (MASS RATIO) IN SER/PLAS 23.2 Normal [facility] Comment on above: Performed By: #### L [id number] #### [facility] ([facility]) [address] [place] [address] CONSULTon 03-27-2024 CONSULT - Attestation signed by [...] no significant PMHx. She initially presented to [facility] with abdominal pain, nausea/vomiting, and diarrhea, found to be dehydrated and resuscitated with IV fluids. Patient subsequently was found to have elevated troponin, therefore was transferred to [facility] due to concern for NSTEMI. GI was [...] 6.1 B12/Folate/Iron studies: No results found for: [id number] , FOLATE , IRON , TIBC , UIBC , IRON (more content not included)... Normal [facility] TROPONIN Ion 03-27-2024 Troponin I.cardiac [Mass/Vol] 0.99 ng/mL Critically high 0.00-0.04 [facility] Comment on above: Result Comment: M-MO EVIOUS CRITICAL RESULT Previous result verified on 03/27/2024 1708 on specimen/case [id number] called with component Troponin I for procedure Troponin I with value 0.83 ng/mL. Performed By: #### L [id number] ####[facility] ([facility])[address] [place] [address] Troponin I.cardiac [Mass/Vol] 0.83 ng/mL Critically high 0.00-0.04 [facility] Comment on above: Result Comment: M-MO EVIOUS CRITICAL RESULT Previous result verified on 03/27/2024 0148 on specimen/case [id number] called with component Troponin I for procedure Troponin I with value 2.59 ng/mL. Performed By: #### L [id number] #### [facility] ([facility]) [address] [place] [address] Troponin I.cardiac [Mass/Vol] 2.59 ng/mL Critically high 0.00-0.04 [facility] Comment on above: Result Comment: M-MO EVIOUS CRITICAL RESULT Previous result verified on 03/26/2024 1931 on specimen/case [id number] called with component Troponin I for procedure Troponin I with value 2.44 ng/mL. Performed By: #### L [id number] #### [facility] ([facility]) [address] [place] [address] 30on 03-26-2024 30 The patient is Moderately Stable - Low risk of patient condition declining or worsening The patient's goals for the shift include feel better The clinical goals for the shift include stable vitals Over the shift, the patient did not make progress toward the following goals. Barriers to progression include . Recommendations to address these barriers include . Normal [facility] 30 The patient is Moderately Stable - Low risk of patient condition declining or worsening The patient's goals for the shift include comfort The clinical goals for the shift include stable vitals Normal [facility] ANTI-XA (HEPARIN LEVEL)on HEPARIN UNFRACTIONATED (U/ML) IN PPP BY CHROMOGENIC METHOD 0.52 IU/mL Normal 0.3-0.7 [facility] Comment on above: Order Comment: Check anti-Xa level every 6 hours while on heparin infusion, or per protocol. Result Comment: [place] roxaban and Apixaban will interfere with the anti Xa assay used to monitor UFH and LMWH. Performed By: #### L [id number] #### [facility] ([facility]) [address] [place] [address] HEPARIN UNFRACTIONATED (U/ML) IN PPP BY CHROMOGENIC METHOD 0.65 IU/mL Normal 0.3-0.7 [facility] Comment on above: Order Comment: Check anti-Xa level every 6 hours while on heparin infusion, or per protocol. Result Comment: Cassi roxaban and Apixaban will interfere with the anti Xa assay used to monitor UFH and LMWH. Performed By: #### L [id number] #### [facility] ([facility]) [address] [place] [address] HEPARIN UNFRACTIONATED (U/ML) IN PPP BY CHROMOGENIC METHOD 0.80 IU/mL High 0.3-0.7 [facility] Comment on above: Order Comment: Check anti-Xa level every 6 hours while on heparin infusion, or per protocol. Result Comment: Cassi roxaban and Apixaban will interfere with the anti Xa assay used to monitor UFH and LMWH. Performed By: #### L [id number] #### [facility] ([facility]) [address] [place] [address] CBCon 03-26-2024 Erythrocyte distribution width (RBC) [Ratio] 13.8 % Normal 11.5-15.0 [facility] Comment on above: Performed By: #### L [id number] #### [facility] ([facility]) [address] [place] [address] ERYTHROCYTE MEAN CORPUSCULAR HEMOGLOBIN CONCENTRATION (G/DL) BY AUTOMATED 33.1 g/dL Normal 32.0-35.0 [facility] Comment on above: Performed By: #### L [id number] #### [facility] ([facility]) [address] [address] Hematocrit (Bld) [Volume fraction] 40.8 % Normal 36.0-48.0 [facility] Comment on above: Performed By: #### L [id number] #### [facility] ([facility]) [address] [place] [address] Hemoglobin (Bld) [Mass/Vol] 13.5 g/dL Normal 12.0-15.0 [facility] Comment on above: Performed By: #### L [id number] #### [facility] ([facility]) [address] [place] [address] MCH (RBC) [Entitic mass] 29.0 pg Normal 27.0-33.0 [facility] Comment on above: Performed By: #### L [id number] #### [facility] ([facility]) [address] [place] [address] MCV (RBC) [Entitic vol] 87.6 fL Normal 82.0-98.0 [facility] Comment on above: Performed By: #### L [id number] #### [facility] ([facility]) [address] [address] PLATELETS (10*3/UL) IN BLOOD AUTOMATED COUNT 179 10*3/uL Normal 150-400 [facility] Comment on above: Performed By: #### L [id number] #### [facility] ([facility]) [address] [place] [address] RBC (Bld) [#/Vol] 4.66 10*6/uL Normal 3.80-5.00 [facility] Comment on above: Performed By: #### L [id number] #### [facility] ([facility]) [address] [place] [address] WBC (Bld) [#/Vol] 7.11 10*3/uL Normal 4.00-10.60 [facility] Comment on above: Performed By: #### L [id number] #### [facility] ([facility]) [address] [place] [address] CONSULTon 03-26-2024 CONSULT - Attestation signed by [...] elevated troponin the patient initially went to [facility] due to symptoms of abdominal pain, nausea [...] ) 52.8 kg (116 lb 6.4 oz) 03/25/245 117/61 36.1 ???C (96.9 ???F) Temporal 65 [...] Value Ventricular Rate 67 Atrial Rate 67 MO Interval 142 QRS DURATION 70 QT Interval 448 QTC CALCULATION(BAZETT) 473 P [facility] 83 R-[facility] [facility] -5 T Wave [facility] -22 Impression Normal sinus rhythm Possible Inferior [...] cardiology will follow along Sudhir Gayle MD [employer] Se[employer] Manager - PGY4 [place] [facility] Normal [facility] HEMOGLOBIN A1Con 03-26-2024 Glucose [Mass/Vol] 123 mg/dL Normal [facility] Comment on above: Performed By: #### L [id number] #### [facility] ([facility]) [address] [place] [address] HbA1c (Bld) [Mass fraction] 5.9 % Normal 4.0-6.0 [facility] Comment on above: Performed By: #### L [id number] #### [facility] ([facility]AKER) [address] [place] [address] HPon 03-26-2024 HP - Attestation signed by [...] elevated troponin the patient initially went to [facility] due to symptoms of abdominal pain, nausea [...] Value Ventricular Rate 67 Atrial Rate 67 MO Interval 142 QRS DURATION 70 QT Interval 448 QTC CALCULATION(BAZETT) 473 P [facility] [facility] 83 R-[facility] [facility] -5 T Wave [facility] -22 Impression Normal sinus rhythm Possible Inferior [...] cardiology will follow along Sudhir Gayle MD [employer] Se[employer] Manager - PGY4 [facility] Normal [facility] LIPID PANELon 03-26-2024 CHOL/HDL 4.0 mg/dL Normal [facility] Comment on above: Performed By: #### L [id number] ####[facility] ([facility]ER)[address] [place] [address] Cholesterol [Mass/Vol] 135 mg/dL Normal 120-200 [facility] Comment on above: Performed By: #### L [id number] ####[facility] ([facility]ER)[address] [place] [address] Magnesium [Mass/Vol] 55 mg/dL Normal 40-149 [facility] Comment on above: Result Comment: TRIG LYCERIDE REFERENCE RANGE: 20 YEARS AND OLDER CARDIOVASCULAR RISK LESS THAN 150 mg/dL LOW RISK 150 TO 199 mg/dL BORDERLINE RISK 200 mg/dL AND GREATER HIGH RISK Performed By: #### L [id number] ####[facility] ([facility])[address] [place] [address] Magnesium [Mass/Vol] 90 mg/dL Normal 0-160 [facility] Comment on above: Performed By: #### L [id number] ####[facility] ([facility])[address] [place] [address] Magnesium [Mass/Vol] 34 mg/dL Normal 23-92 [facility] Comment on above: Performed By: #### L [id number] ####[facility] ([facility])[address] [place] [address] NON HDL CHOL. (LDL+VLDL) 101 Normal [facility] Comment on above: Performed By: #### L [id number] ####[facility] ([facility])[address] [place] [address] TOTAL VLDL-C 11 mg/dL Normal 0-[address] [facility] Comment on above: Performed By: #### L [id number] ####[facility] ([facility])[address] [place] [address] TROPONIN Ion 03-26-2024 Troponin I.cardiac [Mass/Vol] 2.44 ng/mL Critically high 0.00-0.04 [facility] Comment on above: Result Comment: M-MO EVIOUS CRITICAL RESULT Previous result verified on 03/26/202451 on specimen/case 24H called with component Troponin I for procedure Troponin I with value 2.77 ng/mL. Performed By: #### L [id number] #### [facility] ([facility]) [address] [place] [address] Troponin I.cardiac [Mass/Vol] 2.07 ng/mL Critically high 0.00-0.04 [facility] Comment on above: Result Comment: M-MO EVIOUS CRITICAL RESULT Previous result verified on 03/26/202451 on specimen/case 24H called with component Troponin I for procedure Troponin I with value 2.77 ng/mL. Performed By: #### L [id number] ####[facility] ([facility]ER)[address] [place] [address] Troponin I.cardiac [Mass/Vol] 3.34 ng/mL Critically high 0.00-0.04 [facility] Comment on above: Result Comment: M-MO EVIOUS CRITICAL RESULT Previous result verified on 03/26/2024 0052 on specimen/case 24H- called with component Troponin I for procedure Troponin I with value 2.77 ng/mL. Performed By: #### L [id number] #### [facility] ([facility]) [address] [place] [address] URINALYSISon 03-26-2024 BILIRUBIN, TOTAL PRESENCE IN URINE Negative Normal Negative [facility] Comment on above: Performed By: #### L [id number] #### [facility] ([facility]) [address] [place] [address] Clarity (U) Slightly Cloudy Abnormal Clear [facility] Comment on above: Performed By: #### L [id number] #### [facility] [address] [place] [address] Color (U) Yellow Normal Yellow [facility] Comment on above: Performed By: #### L [id number] #### [facility] ([facility] [address] [place] [address] Glucose (U) [Mass/Vol] Negative Normal Negative [facility] Comment on above: Performed By: #### L [id number] #### [facility] ([facility]) [address] [place] [address] HEMOGLOBIN PRESENCE IN URINE Negative Normal Negative [facility] Comment on above: Performed By: #### L [id number] #### [facility] ([facility]ER) [address] [place] [address] Ketones Ql (U) 20 mg/dL Abnormal Negative [facility] Comment on above: Performed By: #### L [id number] #### [facility] ([facility]ER) [address] [place] [address] LEUKOCYTE ESTERASE PRESENCE IN URINE BY TEST STRIP Large Abnormal Negative [facility] Comment on above: Performed By: #### L [id number] #### [facility] ([facility]) [address] [place] [address] NITRITE PRESENCE IN URINE Negative Normal Negative [facility] Comment on above: Performed By: #### L [id number] #### [facility] ([facility]) [address] [place] [address] pH (U) 5.0 [pH] Normal 5.0-8.0 [facility] Comment on above: Performed By: #### L [id number] #### [facility] ([facility]) [address] [place] [address] Protein (U) [Mass/Vol] Negative Normal Negative [facility] Comment on above: Performed By: #### L [id number] #### [facility] ([facility]) [address] [place] [address] Specific gravity (U) [Rel density] 1.025 High 1.015-1.020 [facility] Comment on above: Performed By: #### L [id number] #### [facility] ([facility]) [address] [place] [address] URINALYSIS MICROSCOPICon CASTS IN URINE Normal [facility] Comment on above: Performed By: #### L [id number] #### [facility] ([facility]) [address] [place] [address] CRYSTALS IN URINE Normal [facility] Comment on above: Performed By: #### L [id number] #### [facility] ([facility]) [address] [place] [address] MUCUS (#/HPF) IN URINE SEDIMENT Moderate Abnormal None Seen, Occasional, Few [facility] Comment on above: Performed By: #### L [id number] #### [facility] ([facility]) [address] [place] [address] RBC (#/HPF) IN URINE SEDIMENT 0-2 Abnormal None Seen [facility] Comment on above: Performed By: #### L [id number] #### [facility] ([facility]) [address] [place] [address] SQUAMOUS EPITHELIAL CELLS (#/HPF) IN URINE SEDIMENT Many Abnormal None Seen, Occasional [facility] Comment on above: Performed By: #### L [id number] #### [facility] ([facility]) [address] [place] [address] WBC (LEUKOCYTE) (#/HPF) IN URINE SEDIMENT 21-50 Abnormal None Seen [facility] Comment on above: Performed By: #### L [id number] #### [facility] ([facility]) [address] [place] [address] APTTon 03-25-2024 ACTIVATED PARTIAL THROMBOPLASTIN TIME IN PPP BY COAGULATION ASSAY 24.4 Seconds Low 25.0-35.0 [facility] Comment on above: Order Comment: Basel ine aPTT before initiating heparin infusion. Result Comment: Clin ical significance of the APTT is questionable in the presence of heparin. Performed By: #### L [id number] ####[facility] ([facility])[address] [place] [address] B-TYPE NATRIURETIC PEPTIDEon 03-25-2024 Natriuretic peptide B (Bld) [Mass/Vol] 267 pg/mL High 0-100 [facility] Comment on above: Performed By: #### L [id number] ####[facility] ([facility])[address] [place] [address] BASIC METABOLIC PANELon -2 0 Anion gap [Moles/Vol] 12 mmol/L Normal 7-20 [facility] Comment on above: Performed By: #### L [id number] ####[facility] ([facility])[address] [place] [address] Calcium [Mass/Vol] 8.6 mg/dL Normal 8.6-10.3 [facility] Comment on above: Performed By: #### L [id number] ####[facility] ([facility])[address] [place] [address] Chloride [Moles/Vol] 107 mmol/L Normal 98-107 [facility] Comment on above: Performed By: #### L [id number] ####[facility] ([facility]NA [facility]IE)[address] [place] [address] CO2 [Moles/Vol] 24 mmol/L Normal 21-31 [facility] Comment on above: Performed By: #### L [id number] ####[facility] [place] [address] Creatinine [Mass/Vol] 0.68 mg/dL Normal 0.60-1.20 [facility] Comment on above: Performed By: #### L [id number] ####[facility] ([facility])[address] [place] [address] GLOMERULAR FILTRATION RATE ML/MIN/1.73 SQ M.PREDICTED 94.8 mL/min/1.73m*2 Normal >60.[address] [facility] Comment on above: Result Comment: The [facility]???s estimated glomerular filtration rate (eGFR) will [...] of individuals. Performed By: #### L [id number] ####[facility] (BEAKER)[address] [place] [address] Glucose [Mass/Vol] 105 mg/dL High 70-100 [facility] Comment on above: Performed By: #### L [id number] ####[facility] ([facility])[address] [place] [address] Potassium [Moles/Vol] 3.8 mmol/L Normal 3.5-5.1 [facility] Comment on above: Performed By: #### L [id number] ####[facility] ([facility])[address] [place] [address] Sodium [Moles/Vol] 139 mmol/L Normal 136-145 [facility] Comment on above: Performed By: #### L [id number] ####[facility] ([facility])[address] [place] [address] Urea nitrogen [Mass/Vol] 12 mg/dL Normal 7-25 [facility] Comment on above: Performed By: #### L [id number] ####[facility] ([facility])[address] [place] [address] UREA NITROGEN/CREATINI NE (MASS RATIO) IN SER/PLAS 17.6 Normal [facility] Comment on above: Performed By: #### L [id number] ####[facility] ([facility])[address] [place] [address] CBC WITH AUTO DIFFERENTIALon 03-25-2024 Basophils (Bld) [#/Vol] 0.05 10*3/uL Normal 0.00-0.20 [facility] Comment on above: Performed By: #### L [id number] ####[facility] ([facility])[address] [place] [address] Basophils/100 WBC (Bld) 0.6 % Normal 0.0-1.0 [facility] Comment on above: Performed By: #### L [id number] ####[facility] ([facility])[address] [place] [address] Eosinophils (Bld) [#/Vol] 0.15 10*3/uL Normal 0.00-0.50 [facility] Comment on above: Performed By: #### L [id number] ####[facility] ([facility])[address] [place] [address] Eosinophils/100 WBC (Bld) 1.8 % Normal 0.0-6.0 [facility] Comment on above: Performed By: #### L [id number] ####[facility] ([facility])[address] [place] [address] Erythrocyte distribution width (RBC) [Ratio] 13.8 % Normal 11.5-15.0 [facility] Comment on above: Performed By: #### L [id number] ####[facility] (BEAKER)[address] [place] [address] ERYTHROCYTE MEAN CORPUSCULAR HEMOGLOBIN CONCENTRATION (G/DL) BY AUTOMATED 31.8 g/dL Low 32.0-35.0 [facility] Comment on above: Performed By: #### L [id number] ####[facility] ([facility] [place] [address] Hematocrit (Bld) [Volume fraction] 44.6 % Normal 36.0-48.0 [facility] Comment on above: Performed By: #### L [id number] ####[facility] ([facility]AKER)[address] [place] [address] Hemoglobin (Bld) [Mass/Vol] 14.2 g/dL Normal 12.0-15.0 [facility] Comment on above: Performed By: #### L [id number] ####[facility] ([facility]ER)[address] [place] [address] Immature granulocytes (Bld) [#/Vol] 0.03 10*3/uL Normal 0.00-0.20 [facility] Comment on above: Performed By: #### L [id number] ####[facility] ([facility]ER)[address] [place] [address] Immature granulocytes/100 WBC (Bld) 0.4 % Normal 0.0-1.0 [facility] Comment on above: Performed By: #### L [id number] ####[facility] ([facility]ER)[address] [place] [address] Lymphocytes (Bld) [#/Vol] 1.52 10*3/uL Normal 1.20-4.00 [facility] Comment on above: Performed By: #### L [id number] ####[facility] (BE[facility]ER)[address] [place] [address] Lymphocytes/100 WBC (Bld) 18.4 % Low 20.0-45.0 [facility] Comment on above: Performed By: #### L [id number] ####[facility] [place] [address] MCH (RBC) [Entitic mass] 29.2 pg Normal 27.0-33.0 [facility] Comment on above: Performed By: #### L [id number] ####[facility] ([facility])[address] [place] [address] MCV (RBC) [Entitic vol] 91.8 fL Normal 82.0-98.0 [facility] Comment on above: Performed By: #### L [id number] ####[facility] ([facility])[address] [place] [address] Monocytes (Bld) [#/Vol] 0.58 10*3/uL Normal 0.10-1.00 [facility] Comment on above: Performed By: #### L [id number] ####[facility] ([facility])[address] [place] [address] Monocytes/100 WBC (Bld) 7.0 % Normal 5.0-12.0 [facility] Comment on above: Performed By: #### L [id number] ####[facility] ([facility])[address] [place] [address] Neutrophils (Bld) [#/Vol] 5.91 10*3/uL Normal 1.60-7.60 [facility] Comment on above: Performed By: #### L [id number] ####[facility] ([facility]ER)[address] [place] [address] Neutrophils/100 WBC (Bld) 71.8 % Normal 40.0-72.0 [facility] Comment on above: Performed By: #### L [id number] ####[facility] ([facility]ER)[address] [place] [address] NRBC (PER 100 WBCS) BY AUTOMATED COUNT 0.0 % Normal 0 [facility] Comment on above: Performed By: #### L [id number] ####[facility] ([facility])[address] [place] [address] PLATELETS (10*3/UL) IN BLOOD AUTOMATED COUNT 201 10*3/uL Normal 150-400 [facility] Comment on above: Performed By: #### L [id number] ####[facility] ([facility])[address] [place] [address] RBC (Bld) [#/Vol] 4.86 10*6/uL Normal 3.80-5.00 [facility] Comment on above: Performed By: #### L [id number] ####[facility] ([facility])[address] [place] [address] WBC (Bld) [#/Vol] 8.24 10*3/uL Normal 4.00-10.60 [facility] Comment on above: Performed By: #### L [id number] ####[facility] ([facility])[address] [place] [address] HEPATIC FUNCTION PANELon Albumin [Mass/Vol] 3.8 g/dL Normal 3.5-5.7 [facility] Comment on above: Performed By: #### L [id number] #### [facility] ([facility]) [address] [place] [address] ALP [Catalytic activity/Vol] 35 U/L Normal 34-104 [facility] Comment on above: Performed By: #### L [id number] #### [facility] ([facility]) [address] [place] [address] ALT [Catalytic activity/Vol] 21 U/L Normal 7-52 [facility] Comment on above: Performed By: #### L [id number] #### [facility] ([facility]) [address] [place] [address] AST [Catalytic activity/Vol] 32 U/L Normal 13-39 [facility] Comment on above: Performed By: #### L [id number] #### [facility] ([facility]) [address] [place] [address] Bilirubin [Mass/Vol] 0.8 mg/dL Normal 0.3-1.0 [facility] Comment on above: Performed By: #### L [id number] #### [facility] ([facility]) [address] [place] [address] Magnesium [Mass/Vol] 0.1 mg/dL Normal 0-0.2 [facility] Comment on above: Performed By: #### L [id number] #### [facility] ([facility]) [address] [place] [address] Protein [Mass/Vol] 6.1 g/dL Normal 6.0-8.3 [facility] Comment on above: Performed By: #### L [id number] #### [facility] ([facility]) [address] [place] [address] MAGNESIUMon 03-25-2024 Magnesium [Mass/Vol] 2.0 mg/dL Normal 1.9-2.7 [facility] Comment on above: Performed By: #### L [id number] ####[facility] ([facility])[address] [place] [address] PHOSPHORUSon 03-25-2024 Magnesium [Mass/Vol] 3.1 mg/dL Normal 2.5-5.0 [facility] Comment on above: Performed By: #### L [id number] ####[facility] ([facility])[address] [place] [address] PROTIME-INRon 03-25-2024 INR IN PPP BY COAGULATION ASSAY 1.11 High 0.90-1.10 [facility] Comment on above: Result Comment: ACCC [...] CHEST 1995;108:231S-246S. Performed By: #### L [id number] ####[facility] ([facility])[address] [place] [address] PROTHROMBIN TIME (PT) IN PPP BY COAGULATION ASSAY 14.3 Seconds Normal 12.3-14.8 [facility] Comment on above: Performed By: #### L [id number] ####[facility] ([facility])[address] [place] [address] TROPONIN Ion 03-25-2024 Troponin I.cardiac [Mass/Vol] 2.77 ng/mL Critically high 0.00-0.04 [facility] Comment on above: Result Comment: SANDY MARTINEZ INITIAL CRITICAL HIGH; RESPUN AND RETESTED Performed By: #### L [id number] #### [facility] ([facility]) [address] [place] [address] Family Medicine Office/Clini c Noteon 03-17-2024 Family [...] vac - Not Given Patient Refuses Normal [facility] Comment on above: Result Comment: Elec tronically Signed By: Millie Florentino\.br\Date and Time Signed: 03/17/24 15:22 EDT Consenton 02-09-2024 Consent [id number] .00TIFF Normal [facility] Ambulatory Visit Summaryon 0 02-08-2024 Ambulatory Visit Summary JERAMEI BACONOMI [place]ola :1955 Visit Date:02/08/2024 Ambulatory Visit Instructions Your [...] Follow-Up Appointments 2023 1:00 PM EDT Where: [facility] Family Medicine [place] Normal [facility] Family Medicine Office/Clini c Noteon 02-08-2024 Family Medicine Office/Clinic Note HPI Staff Jess is a 68 year old female presenting for Pt went to urgent care in [place] 01/31 started on Amoxcillin Onset: 9 days [...] vac - Not Given Patient Refuses Normal [facility] Comment on above: Result Comment: Elec tronically Signed By: Millie Florentino\.br\Date and Time Signed: 02/08/24 15:31 EDT Consultation Noteon 02-01-20 Consultation Note [id number]. 00TIFF [facility] Formson 02-01-2024 Forms [id number] .00TIFF [facility] Physician Referralon 024 Physician Referral [id number] .00TIFF [facility] Ambulatory Visit Summaryon 0 12-17-2023 Ambulatory Visit Summary JESS BACON :1955 Visit Date:12/17/2023 Ambulatory Visit Instructions Your [...] Follow-Up Appointments 2023 1:00 PM EDT Where: [facility] Medicine [place] Normal [facility] Medicine Office/Clini c Noteon 12-17-2023 Family Medicine [...] does not want to go back to [place]. will refer to Dr. Dickerson in [place]. RTC 3 months. note provided to work no more than 8 hours per day and no vibrating tools Ordered: [facility] External Ambulatory Referral Body mass index [BMI] [...] - Not Given Patient Refuses SARS-CoV-2 mRNA (francisco javiereran 5y-11y) vac - Not Given Patient Refuses Normal [facility] Comment on above: Result Comment: Elec tronically Signed By: Millie Florentino\.br\Date and Time Signed: 12/17/23 15:12 EDT Provider Letteron 12-17-2023 Provider Letter December 17, 2023 JESS BACON [address] [place] [id number] : 1955 To Whom It May Concern, Jess may work no more than 8 hours per day. Please continue to not use vibrating hand tools. This will continue through December, January, and February 2024. If you have any questions please do not hesitate to contact my office. Date of Illness: From: December 2023 To: February 2024 Sincerely, [facility] [place] [id number] [facility] Consultation Noteon 11-10-19 Consultation Note [id number] .00TIFF [facility] Family Medicine Office/Clini c Noteon 10-31-2023 Family Medicine Office/Clinic Note Chief Complaint diagnosed with bronchitis 10/25- not feeling better HPI Staff 67 year old female presents with bronchitis that is worsening, pain in ribs when coughing was seen at [facility] 10/25 and was diagnosed with bronchitis was given steroids- has 2 more days but does not feel any better History of Present Illness Reviewed and agree with above documented HPI by medical doctor md. Portions of this record may have been created with voice recognition artificial intelligence software, specifically [employer], [employer] and or [employer]. Substitutions may have occurred due to the inherent limitations of voice recognition and artificial intelligence software. Patient is a 67-year-old female who presents to convenient care, for sinus congestion, sore throat, and a nonproductive cough. Patient states symptom has been going on for over 2-1/2 weeks, states this past Wednesday she was seen at an urgent care in [facility], states she was diagnosed with bronchitis [...] at this time. 67-year-old female presents to [facility], for acute frontal sinusitis and acute bronchitis, history of sinus infections and bronchitis, close to 3 weeks ago, has been taking lfdg-snt-kiajyka medication without any relief, did appear ill but not septic, no respiratory distress or difficulty swallowing is noted. He was given a prescription of Zithromax, prefer no prescription for cough or prednisone at this time. Patient was instructed take kfox-vxm-jjscmpx ibuprofen Tylenol as needed for body aches, fevers, headaches. Drink plenty water stay hydrated. Given a work excuse note. Follow-up with primary care provider. 1. Acute frontal sinusitis (J01.10: Acute frontal sinusitis, unspecified) See above 2. Acute bronchitis (J20.9: Acute bronchitis, unspecified) See above Follow-up With When Contact Information Carlos BARRON, Millie Gallagher, JO, MED Additional Instructions: Patient Education Acute Bronchitis, Adult, Ugvg-am-Cjpd Sinus Infection, Adult, Qfne-dv-Owlg Problem List/Past Medical History Ongoing Acute bronchitis Acute frontal sinusitis Anxiety disorder Breast cancer screening by mammogram Dupuytrens contracture Ingrown right big toenail Lower extremity neuropathy Onychomycosis Osteoarthritis of lumbosacral spine Radiculopathy Right elbow pain Sore t (more content not included)... Normal [facility] Comment on above: Result Comment: [...] ? Medicines that treat allergies (antihistamines). ? Tpeo-jwg-calpgds pain relievers. ? If caused by bacteria, your doctor may wait to see if you will get better without treatment. You may be given antibiotic medicine if you have: ? A very bad infection. ? A weak body defense system. ? If caused by growths in the nose, surgery may be needed. Follow these instructions at home: Medicines ? Take, use, or apply pegn-wjk-hseoikl and prescription medicines only as told by [...] cannot use soap and water, use hand front office specialist. ? Do not smoke. Avoid being around [...] follow-up visits (more content not included)... Normal [facility] Patient Letter FTon 2023 Patient Letter [facility] [address] [place] [address] October 29, 2023 JESS BACON [address] [place] [phone] : 1955 Please excuse JESS BACON from work . Date and/or Time of Absence: From: 10/29/23 May return to work on: 11/01/23 Restrictions: None Comments: Please excuse due to an acute illness. Provider Signature: Phillip Nunez PA-C [address] [place] [address] [facility] Ambulatory Visit Summaryon 0 09-30-2023 Ambulatory Visit Summary JESS BACON :1955 Visit Date:09/30/2023 Ambulatory Visit Instructions Your [...] Follow-Up Appointments 2023 1:00 PM EDT Where: [facility] [place] Normal [facility] Family Medicine Office/Clini c Noteon 09-30-2023 Family Medicine Office/Clinic Note HPI Staff Jess is a 67 year old female presenting for 3 month follow up Pain characteristics: Pain location: Right elbow with Radiculopathy ([facility] 06/30/23 Medrol dose pack ordered) Intensity: 0 [...] Daily, # 30 tab(s), Refills(s) 0, Pharmacy: [facility], 158, cm, 09/30/23 11:26:00 EST, Height/Length Dosing, 55.1, kg, 09/30/23 11:26:00 EST, Weight Dosing methylPREDNISolone, = 1 packet(s), Oral, As Directed, as directed on package labeling, X 6 day(s), # 21 tab(s), Refills(s) 0, Pharmacy: [facility], 158, cm, 09/30/23 11:26:00 EST, Height/Length Dosing, 55.1, kg, 09/30/23 11:26:00 EST, Weight Dosing 2. Ingrown right big toenail (L60.0: Ingrowing nail) right big toe nail ingrown. will refer to Dr. Schultz Ordered: [facility] External Ambulatory Referral 3. BMI 22.0-22.9, adult (Z68.22: Body mass index [BMI] 22.0-22.9, adult) BMI education complete Ordered: meloxicam, 7.5 mg = 1 tab(s), Oral, Daily, # 30 tab(s), Refills(s) 0, Pharmacy: [facility], 158, cm, 09/30/23 11:26:00 EST, Height/Length Dosing, 55.1, kg, 09/30/23 11:26:00 EST, Weight Dosing methylPREDNISolone, = 1 packet(s), Oral, As Directed, as directed on package labeling, X 6 day(s), # 21 tab(s), Refills(s) 0, Pharmacy: [facility], 158, cm, 09/30/23 11:26:00 EST, Height/Length Dosing, 55.1, kg, 09/30/23 11:26:00 EST, Weight Dosing 4. Non-smoker (Z78.9: Other specified health status) continue not smoking Ordered: meloxicam, 7.5 mg = 1 tab(s), Oral, Daily, # 30 tab(s), Refills(s) 0, Pharmacy: [facility], 158, cm, 09/30/23 11:26:00 EST, Height/Length Dosing, 55.1, kg, 09/30/23 11:26:00 EST, Weight Dosing methylPREDNISolone, = 1 packet(s), Oral, As Directed, as directed on package labeling, X 6 day(s), # 21 tab(s), Refills(s) 0, Pharmacy: [facility], 158, cm, 09/30/23 11:26:00 EST, Height/Length Dosing, 55.1, kg, 09/30/23 11:26:00 EST, Weight Dosing Orders: escitalopram, 10 mg = 1 tab(s), Oral, Daily, X 90 day(s), # 90 tab(s), Refills(s) 3, Pharmacy: [id number], 157, cm, 04/23/23 13:50:00 EDT, Height/Length Dosing, [...] refills, Not (more content not included)... Normal [facility] Comment on above: Result Comment: Elec tronically Signed By: Millie Florentino\.br\Date and Time Signed: 09/30/23 11:46 EST Physician Referralon 024 Physician Referral [id number] [id number] [facility] Provider Letteron 09-30-2023 Provider Letter September 30, 2023 JESS BACON [address] [place] [phone] : 1955 To Whom It May Concern, [...] Restrictions: _ See Above Comments: _ Sincerely, [address] [address] [facility] Ambulatory Visit Summaryon 1 Ambulatory Visit Summary [...] 3:20 PM EST With: Millie Florentino Where: [address] [address]- \.br\ Medications\.br\ What How Much When Why [...] for choosing us for your care.\.br\ \.br\ [facility] Family Medicine Office/Clini c Noteon 06-30-2023 Family [...] 5y-11y) vac - Not Given Patient Refuses [facility] Comment on above: Result Comment: Elec tronically Signed By: Millie Florentino\.br\Date and Time Signed: 06/30/23 15:13 EDT Provider Letteron 06-30-2023 Provider Letter [address] [place] [id number] June 30, 2023 JESS BACON [address] [place] [phone] : 1955 To Whom It May Concern, Jess may work two 12 hour shifts per week. As long as the 12 hour shifts are not back to back. Please continue to not use vibrating hand tools. This will continue through June, July, and August. If you have any questions please do not hesitate to let me know. Sincerely, JAH Houser [facility] Vital Signs Date Time Vital Sign Value Performing Clinician Facility 05-27-2024 14:05-0400 Body height 156.21 cm MD Luisito Roth Work Phone: [facility] 05-27-2024 14:05-0400 Body mass index (BMI) [Ratio] 21.4 kg/m2 MD Luisito Roth Work Phone: [facility] 05-27-2024 14:05-0400 Body temperature 98.2 [degF] MD Luisito Roth Work Phone: [facility] 05-27-2024 14:05-0400 Body weight 52.16 kg MD Luisito Roth Work Phone: [facility] 05-27-2024 14:05-0400 Diastolic blood pressure 69 mm[Hg] MD Luisito Roth Work Phone: [facility] 05-27-2024 14:05-0400 Heart rate 56 /min MD Luisito Roth Work Phone: [facility] 05-27-2024 14:05-0400 SaO2% (BldA) [Mass fraction] 98 % MD Luisito Roth Work Phone: [facility] 05-27-2024 14:05-0400 Systolic blood pressure 128 mm[Hg] MD Luisito Roth Work Phone: [facility] 10-29-2023 13:26-0500 Blood Pressure Location PHILLIP NUNEZ [facility] 10-29-2023 13:26-0500 Body temperature 97.88 [degF] PHILLIP NUNEZ [facility] 10-29-2023 13:26-0500 Diastolic blood pressure 80 mm[Hg] PHILLIP NUNEZ [facility] 10-29-2023 13:26-0500 Heart rate 77 /min GOODWIN NUNEZ [facility] 10-29-2023 13:26-0500 SaO2% (BldA) [Mass fraction] 96 % PHILLIP NUNEZ [facility] 10-29-2023 13:050 Systolic blood pressure 120 mm[Hg] PHILLIP NUNEZ [facility] Encounters Encounter Date Encounter Type Care Provider Facility Start: 06-01-2024 ambulatory Millie L Carlos Facility: [facility] Start: 05-29-2024 End: 05-29-2024 ambulatory Millie L Carlos Facility:[facility] Start: 05-27-2024 End: 05-27-2024 ambulatory MD Luisito Roth Work Phone: [facility] Work Phone: Start: 05-27-2024 End: 05-27-2024 Patient encounter procedure MD Luisito Roth Work Phone: [facility] Work Phone: Start: 05-12-2024 End: 05-12-2024 ambulatory Millie L Carlos Facility:[facility] [place] Start: 04-21-2024 End: 04-21-2024 [facility] Start: 04-19-2024 End: 04-19-2024 ambulatory Millie L Carlos Facility:[facility] [place] Start: 04-12-2024 End: 04-12-2024 ambulatory Millie L Carlos Facility: [facility] Start: 04-06-2024 End: 04-06-2024 ambulatory Luisito Roth Facility: [facility] Start: 03-31-2024 End: 05-01-2024 ambulatory Luisito Roth Facility:CD:[id number] Start: 03-29-2024 ambulatory Millie L Carlos Facility: [facility] Start: 03-28-2024 Evaluation and management of inpatient MAXIMINO CANCINO [facility] Start: 03-27-2024 Evaluation and management of inpatient MARY GARCIA [facility] Start: 03-26-2024 Evaluation and management of inpatient MAXIMINO CANCINO [facility] Start: 03-25-2024 Evaluation and management of inpatient MARY GARCIA [facility] Start: 03-25-2024 End: 03-30-2024 Evaluation and management of inpatient SUDHIR CHRISTINE [facility] Start: 03-17-2024 End: 03-17-2024 ambulatory Millie L Carlos Facility:[facility] Start: 02-08-2024 End: 02-08-2024 ambulatory Millie L Carlos Facility:[facility] Start: 01-20-2024 End: 01-20-2024 ambulatory LARISSA SUTTON Not Available Start: 12-31-2023 End: 12-31-2023 ambulatory LAUREANO AMARAL Not Available Start: 12-17-2023 End: 12-17-2023 ambulatory Millie L Carlos Facility:[facility] [place] Start: 10-29-2023 End: 10-29-2023 ambulatory PHILLIP NUNEZ Facility: [facility] Start: 10-29-2023 End: 10-29-2023 Patient encounter procedure PHILLIP NUNEZ [facility] Start: 09-30-2023 End: 09-30-2023 ambulatory Millie L Carlos Facility: [facility] Start: 06-30-2023 End: 06-30-2023 ambulatory Millie L Carlos Facility:[facility] [place] Start: 07-17-2022 End: 07-17-[address] [...] Patient Education Low back pain in adults [facility] Work Phone: Immunizations Immunization Date Immunization Notes Care Provider Fa cility NEGATED: Highlighted row has not occurred!11-30-2022 influenza virus vaccine, unspecified formulation PHILLIP NUNEZ [facility] NEGATED: Highlighted row has not occurred!11-30-2022 SARS-CoV-2 mRNA (tozinameran 5y-11y) vaccine PHILLIP NUNEZ [facility] Payers Date Payer Category Payer Self-pay [id number] 2024 Unknown [id number] 2023 Unknown [id number] 2023 Unknown [id number] 1959 Unknown [id number] 1955 Unknown [id number] 2.16.84 0.1.756842.3.579.2.593 1955 Unknown [id number] 2.16.84 0.1.566652.3.579.2.1259 1955 Unknown [id number] 2.16.84 0.1.171089.3.579.2.1259 1955 Unknown [id number] 2.16.84 0.1.280497.3.579.2.1259 1955 Unknown [id number] 2.16.84 0.1.389111.3.579.2.1259 1955 Unknown [id number] 2.16.8 40.1.159080.3.579.2.727 1955 Unknown [id number] 2.16.8 40.1.182824.3.579.2.727 1955 Unknown [id number] 2.16.8 40.1.609729.3.579.2.727 1955 Unknown [id number] 2.16.8 40.1.903330.3.579.2.727 1955 Unknown [id number] 2.16.8 40.1.312035.3.579.2.727 1955 Unknown [id number] 2.16.8 40.1.221940.3.579.2.727 1955 Unknown [id number] 2.16.8 40.1.533525.3.579.2.72 1955 Unknown [id number] 2.16.8 40.1.441438.3.579.2.727 1955 Unknown [id number] 2.16.8 40.1.399593.3.579.2.727 1955 Unknown [id number] 2.16.8 40.1.946778.3.579.2.727 1955 Unknown [id number] 2.16.8 40.1.834565.3.579.2.727 1955 Unknown [id number] 2.16.8 40.1.233204.3.579.2.727 1955 Unknown [id number] 2.16.8 40.1.737299.3.579.2.727 1955 Unknown [id number] 2.16.8 40.1.211014.3.579.2.727 Medicare Medicare [id number] [id number] Unknown [id number] 2.16.8 40.1.134770.3.579.2.531 Social History Date Type Detail Facility Start: 09-01-2018 End: 10-29-2023 Tobacco smoking status Never smoked tobacco (finding) [facility] Tobacco smoking status Never [facility] Sex Assigned At Female [facility] Start: 1955 Sex Assigned At Female F [facility] Functional Status Date Assessment Result Facility 10-29-2023 Functional Status N/A [facility] Clinical Notes 03-25-2024 to 04-21-2024 Note Date & Type Note Facility 04-21-2024 Note Cardiology Follow Up Progress Note Chief Complaint: Follow-up ([facility] Follow up/Concerns: No further cardiac concerns/symptoms. ) HPI: Jess Bacon is a 68 y.o. female who with a past medical history including overactive bladder, anxiety, vitamin D deficiency, and recent NSTEMI who presents to [facility] for post hospitalization follow up. Patient was transferred to [facility] from outside hospital after presenting with complaints of abdominal pain, nausea, vomiting, and diarrhea x 8 times per day. She was found to be dehydrated, and fluid resuscitation was performed. Her troponin was found to be elevated, show she was transferred for further evaluation/management. [facility], patient was found to have a [...] Value Ventricular Rate 67 Atrial Rate 67 MO Interval 142 QRS DURATION 70 QT Interval 448 QTC CALCULATION(BAZETT) 473 P [facility] 83 R-[facility] -5 T Wave [facility] -22 Impression Normal sinus rhythm Possible Inferior [...] Bubble Study Result Date: 03/27/2024 1 1 [facility] [address] [place] [address] [phone] (fax) Echocardiogram-[facility] Name: JESS BACON Study Date: 03/27/2024 07:59 AM B/P: 109 mmHg/66 mmHg HR: Date of : 1955 Location: [facility] Height: 61 in. Age: 68 year(s) Patient [...] Due to suboptima (more content not included)... [facility] 04-19-2024 Note Nurse Consultation N ote [...] 5y-11y) vac - Not Given Patient Refuses [facility] 04-12-2024 Note Nurse Consultation N ote Reason [...] - Not Given Patient Refuses SARS-CoV-2 mRNA (lawsonflaviacelestegwyn 5y-11y) vac - Not Given Patient Refuses [facility] 04-06-2024 Note Patient Education Infectious Disease Gastritis, [...] medicines. These include steroids, antibiotics, and some wavp-qpy-qcmvkgt medicines, such as aspirin or ibuprofen. ? [...] these instructions at home: Medicines ? Take kwij-iov-efeyarn and prescription medicines only as told by [...] reduce the amount (more content not included)... [facility] 03-30-2024 Note Hospital Medicine Discharge Summary Final Discharge Diagnosis: NSTEMI (non-ST elevated myocardial infarction) ([facility]) Type II demand ischemia Gastroenteritis Overactive bladder Admission Diagnosis: NSTEMI (non-ST elevated myocardial infarction) ([facility]) [I21.4] Hospital course: Patient is a 68-year-old female with overactive bladder, anxiety, vitamin D deficiency, presented from [facility] with abdominal pain, nausea/vomiting and diarrhea, she was found to be dehydrated and started on IV fluids. She was subsequently found to have elevated troponin, therefore she was transferred to [facility] due to concern for NSTEMI. EKG on [...] any infection or hematoma. Dear Dr. Gonzalez, [employer], Jess is advised to follow up with you within 1-2 weeks. Follow-up with: Cardiologyand PCP Scheduled appointments: Future Appointments Date Time Provider Department Center 04/14/2024 3:40 PM Cris Polo MD [facility] Your medication list CONTINUE taking [...] from last 7 days Lab Units 03/30/24 0503/29/24 0547 03/26/24 0503/25/24 2311 WBC AUTO 10*3/uL 6.22 5.41 < > 8.24 HEMOGLOBIN g/dL 14.0 13.9 < > 14.2 HEMATOCRIT % 42.4 42.8 < > 44.6 MCV fL 86.7 89.4 < > 91.8 PLATELETS AUTO 10*3/uL 188 182 < > 201 INR -- -- -- 1.11* < > = values in this interval not displayed. Chemistry: Results from last 7 days Lab Units 03/30/24 0503/29/24 0546 03/28/24 04503/27/24 0503/25/24 2311 SODIUM mmol/L 138 140 140 < [...] days Lab Units 03/30/24 0510 03/29/24 0546 03/28/2445703/27/24 0535 03/25/24 2311 AST U/L 49* 31 [...] was 33 minutes. Signed Gisela Holguin MD [facility] Medicine 03/30/2024 2:02 PM [facility] 03-30-2024 Note [facility] CARDIOLOGY INPAT IENT PROGRESS NOTE Reason for follow up: elevated troponin Subjective HPI: Jess Bacon is a 68 y.o. female with no known past medical history, no medications at home presented to the hospital due to elevated troponin the patient initially went to [facility] due to symptoms of abdominal pain, nausea [...] 03/30/24 0409 -- 36.2 ???C (97.2 ???F) [facility] -- -- -- -- 03/30/24 0400 (!) 97/46 -- -- 54 11 97 % -- 03/30/24 0000 104/51 -- -- 57 12 96 % -- 03/29/242099 (!) 101/41 -- -- 69 23 96 % -- 03/29/241999 (!) 102/49 -- -- 61 13 97 % -- 03/29/241944 -- 37.4 ???C (99.3 ???F) [facility] -- -- -- -- 03/29/24 181 99/67 36.8 ???C (98.3 ???F) Temporal 70 [...] WBC 6.22 03/07 (more content not included)... [facility] 03-29-2024 Note Patient: Jess yin Procedure Information Date/Time: 03/29/241123 Procedure: Coronary angiography - with cors Location: [facility] MANIFEST/ORDER ORGANIZER PRINT ORDERS 2 BIPLANE / [facility] (Cath) Providers: Bebo Yee MD [...] Plan discussed with attending. Additional Equipment Requests [facility] 03-29-2024 Note Hospital Medicine Daily Progress Note - 03/29/2024 11:31 AM; Room: [address] [place] [address] Admission: 03/25/2024 9:23 PM; Length of stay: 4 days THE HOSPITALIST TEAM PREFERS TO USE [employer] CHAT FOR COMMUNICATION 7AM-7PM. IF I DO NOT RESPOND WITHIN 15 MINUTES, PLEASE PAGE ME/CALL THROUGH THE CHANGE CONTROL ANALYST. FROM 7PM-7AM, PLEASE PAGE [phone](COVR) Code Status: Full Code Barriers to Discharge: Cardiac catheterization Expected Discharge Date: 03/25/2024 Discharge Destination: home Overview Patient is seen for evaluation and management of gastroenteritis, elevated troponin. Patient is a 68-year-old female with overactive bladder, anxiety, vitamin D deficiency, presented from [facility] with abdominal pain, nausea/vomiting and diarrhea, she was found to be dehydrated and started on IV fluids. She was subsequently found to have elevated troponin, therefore she was transferred to [facility] due to concern for NSTEMI. Peak troponin [...] Principal Problem: NSTEMI (non-ST elevated myocardial infarction) ([facility]) Active Problems: Gastroenteritis Anxiety Abnormal stress test Assessment and Plan Patient is a 68-year-old female with overactive bladder, anxiety, vitamin D deficiency, presented from [facility] with abdominal pain, nausea/vomiting and diarrhea, she was found to be dehydrated and started on IV fluids. She was subsequently found to have elevated troponin, therefore she was transferred to [facility] due to concern for NSTEMI. Peak troponin [...] AST U/L 31 (more content not included)... [facility] 03-29-2024 Note [facility] CARDIOLOGY INPAT IENT PROGRESS NOTE Reason for follow up: elevated troponin Subjective HPI: Jess Bacon is a 68 y.o. female with no known past medical history, no medications at home presented to the hospital due to elevated troponin the patient initially went to [facility] due to symptoms of abdominal pain, nausea [...] ischemia, TID ind (more content not included)... [facility] 03-28-2024 Note Hospital Medicine Daily Progress Note - 03/28/2024 1:37 PM; Room: [address] [place] [address] Admission: 03/25/2024 9:23 PM; Length of stay: 3 days THE HOSPITALIST TEAM PREFERS TO USE [employer] CHAT FOR COMMUNICATION 7AM-7PM. IF I DO NOT RESPOND WITHIN 15 MINUTES, PLEASE PAGE ME/CALL THROUGH THE CHANGE CONTROL ANALYST. FROM 7PM-7AM, PLEASE PAGE [phone](COVR) Code Status: Full Code Barriers to Discharge: Cardiac catheterization Expected Discharge Date: 03/29/2024 Discharge Destination: home Overview Patient is seen for evaluation and management of gastroenteritis, elevated troponin. Patient is a 68-year-old female with overactive bladder, anxiety, vitamin D deficiency, presented from [facility] with abdominal pain, nausea/vomiting and diarrhea, she was found to be dehydrated and started on IV fluids. She was subsequently found to have elevated troponin, therefore she was transferred to [facility] due to concern for NSTEMI. Peak troponin [...] Principal Problem: NSTEMI (non-ST elevated myocardial infarction) ([facility]) Active Problems: Gastroenteritis Anxiety Assessment and Plan Patient is a 68-year-old female with overactive bladder, anxiety, vitamin D deficiency, presented from [facility] with abdominal pain, nausea/vomiting and diarrhea, she was found to be dehydrated and started on IV fluids. She was subsequently found to have elevated troponin, therefore she was transferred to [facility] due to concern for NSTEMI. Peak troponin [...] Results from last 7 days Lab Units 03/28/24 0458 03/27/24 0535 03/26/24 0511 03/25/24 2311 WBC [...] Results from last 7 days Lab Units 03/28/24 0458 03/27/24 0535 03/25/24 2311 SODIUM mmol/L 140 142 139 POTASSIUM mmol/L 4.3 4.2 3.8 CHLORIDE mmol/L 106 107 107 CO2 mmol/L 29 28 24 BUN mg/dL 17 16 12 CREATININE mg/dL 0.71 0.69 0.68 GLUCOSE mg/dL 92 92 105* MAGNESIUM mg/dL -- -- 2.0 CALCIUM mg/dL 8.7 8.6 8.6 PHOSPHORUS mg/dL -- -- 3.1 Results from last 7 days Lab Units 03/28/24 0458 03/27/24 0535 03/25/24 2311 AST U/L 16 18 32 ALT U/L 13 13 21 ALK PHOS U/L 32* 33* 35 BILIRUBI (more content not included)... [facility] 03-28-2024 Note [facility] CARDIOLOGY INPAT IENT PROGRESS NOTE Reason for follow up: elevated troponin Subjective HPI: Jess Bacon is a 68 y.o. female with no known past medical history, no medications at home presented to the hospital due to elevated troponin the patient initially went to [facility] due to symptoms of abdominal pain, nausea [...] TID index score (more content not included)... [facility] 03-27-2024 Note Attestation signed by Melonie [...] to low blood pressure. Melonie Cole MD, [facility] Cardiology Progress Note Subjective Subjective: Jess Bacon is a 68 y.o. female who presented with diarrhea and cardilogy is seeing for elevated tropon in the absence of any cardiac symptoms. Seen today, denied chest pain, palpitations, dizziness, lightheadedness, syncope or shortness of breath. Objective Objective: Patient Vitals for the past 24 hrs: BP Temp Temp src Pulse Resp SpO2 Weight 03/27/24 1600 108/53 -- -- 65 17 98 [...] Value Ventricular Rate 67 Atrial Rate 67 MO Interval 142 QRS DURATION 70 QT Interval 448 QTC CALCULATION(BAZETT) 473 P [facility] 83 R-[facility] -5 T Wave [facility] -22 Impression Normal sinus rhythm Possible Inferior [...] Bubble Study Result Date: 03/27/2024 1 1 [facility] [address] [place] [address] [phone] (fax) Echocardiogram-[facility] Name: JESS BACON Study Date: 03/27/2024 07:59 AM B/P: 109 mmHg/66 mmHg HR: Date of : 1955 Location: [facility] Height: 61 in. Age: 68 year(s) Patient [...] (22ml - 52ml) (more content not included)... [facility] 03-27-2024 Note 03/27/24 1537 Admission Assessment Questions Verify insurance with patient Yes (Fredis ARIAS. Medicare A B. Assmbly.) Do you understand medical disease or what [...] Bedside Delivery Status Not Interested (Sal in [facility].) Does the patient have a therapeutic case manager assigned to them through their insurance? No [...] with plans to return Home no needs. [facility] 03-27-2024 Note Hospital Medicine Daily Progress Note - 03/27/2024 1:27 PM; Room: [address] [place] [address] Admission: 03/25/2024 9:23 PM; Length of stay: 2 days THE HOSPITALIST TEAM PREFERS TO USE [employer] FOR COMMUNICATION 7AM-7PM. IF I DO NOT RESPOND WITHIN 15 MINUTES, PLEASE PAGE ME/CALL THROUGH THE CHANGE CONTROL ANALYST. FROM 7PM-7AM, PLEASE PAGE [phone](COVR) Code Status: Full Code Barriers to Discharge: [...] LDL 101 03/26/2024 No results found for: [id number] , IRON , TIBC , C3 , [...] T waves in (more content not included)... [facility] 03-27-2024 Note Physical Therapy Physical Therapy Evaluation Patient Name: Jess Bacon : 1955 Today's Date: 03/27/2024 Patient is a 68 y/o female who presented to OSH with nausea/vomiting/diarrhea x2 days. Found to have elevated troponin and transferred to [facility] for further cardiac evaluation. Troponin currently 2.59. [...] Level of Function Prior Function Level of [place]: Independent with ADLs and functional transfers, Independent [...] Discharge Recommendations: Ho (more content not included)... [facility] 03-27-2024 Note Occupational Therapy Occupational Therapy Evaluation Patient Name: Jess Bacon : 1955 Today's Date: 03/27/2024 Time In: 1026 Time Out: 1031 Jess Bacon is an 68 y.o. female who came from home with past medical history of overactive bladder, anxiety and vitamin D deficiency presented to [facility] as a transfer from [facility] for NSTEMI. 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) Prior Functional Mobility: Independent without device Prior [...] Eating meals?: None (Independent) Total Score OT [facility]: 24 Assessment/Plan Plan OT Plan: No skilled OT No Skilled OT: At baseline function OT Discharge Recommendations: Home OT - Discharge Recommendations Placed: Yes OT Goals Multi-Disciplinary Problems (from Occupational Therapy) Active Problems Not on file [facility] 03-26-2024 Note Hospital Medicine Daily Progress Note - 03/26/2024 4:53 PM; Room: [address] [place] [address] Admission: 03/25/2024 9:23 PM; Length of stay: 1 days THE HOSPITALIST TEAM PREFERS TO USE [employer] FOR COMMUNICATION 7AM-7PM. IF I DO NOT RESPOND WITHIN 15 MINUTES, PLEASE PAGE ME/CALL THROUGH THE CHANGE CONTROL ANALYST. FROM 7PM-7AM, PLEASE PAGE [phone](COVR) Code Status: Full Code Barriers to Discharge: [...] Principal Problem: NSTEMI (non-ST elevated myocardial infarction) ([facility]) Active Problems: Gastroenteritis Anxiety Assessment and Plan [...] LDL 101 03/26/2024 No results found for: [id number] , IRON , TIBC , C3 , [...] Lateral Discharge Planning Signed Maximino Cancino MD [facility] Medicine 03/26/2024 4:53 PM [facility] 03-25-2024 Note Hospital Medicine History and Physical 03/25/2024 10:58 PM THE HOSPITALIST TEAM PREFERS TO USE [employer] FOR COMMUNICATION 7AM-7PM. IF I DO NOT RESPOND WITHIN 15 MINUTES, PLEASE PAGE ME/CALL THROUGH THE CHANGE CONTROL ANALYST. FROM 7PM-7AM, PLEASE PAGE [phone](COVR) Chief Complaint No chief complaint on file. History of Present Illness Jess Bacon is an 68 y.o. female who came from home with past medical history of overactive bladder, anxiety and vitamin D deficiency presented to [facility] as a transfer from [facility] for NSTEMI. Patient reports that for [...] were still elevated so cardiology team at [facility] was called and they wanted patient to be transferred forNSTEMI treatment to [facility]. Patient denies chest pain or increased shortness [...] Date Noted NSTEMI (non-ST elevated myocardial infarction) ([facility]) 03/25/2024 Gastroenteritis 03/25/2024 Anxiety 03/25/2024 Assessment and [...] this hospital stay by a member of [facility]. Past Medical History History reviewed. No [...] Ran Out o (more content not included)... [facility] Evaluation + Plan note Future Appointments Appointment Date:04/27/2024 01:00:00 PM Scheduled Provider: Location:[facility] Appointment Type: Medicare Wellness Subsequent [facility] Evaluation note Diagnosis Onset Date Low back pain acute [facility] Work Phone: Hospital course Narrative No data available for this section [facility] Hospital Discharge instructions No data available for this section [facility] Progress note No data available for this section [facility] Summary Purpose Family History No [...] DATE CREATED AUTHOR AUTHOR'S ORGANIZ ATION 01/23/2024 [facility] EPIC DATE CREATED AUTHOR AUTHOR'S ORGANIZ ATION 05/02/2024 [facility] DATE CREATED AUTHOR AUTHOR'S ORGANIZ ATION 05/31/2024 [facility] DATE CREATED AUTHOR AUTHOR'S ORGANIZ ATION 06/04/2024 [facility] Patient Care team informatio n (unrecognized section [...] BE BASED ON THE PRIMARY CLINICAL RECORDS. [facility] [employer] [facility]. provides no warranty or guarantee of the accuracy or completeness of information in this document.
== END 2024-06-07 08:57 | disposition home or self-care (01) ==
LOC: MAMMO 08:56
PROVIDERS: PCP Nurse Practitioner; Visit Provider Nurse Practitioner
DX: Z12.31 Encounter for screening mammogram for malignant neoplasm of breast (principal)
CPT/HCPCS: 77063; 77067

== ENCOUNTER 2024-08-08 07:24 | Outpatient (OUT) | payer BC, OTHER, SELFPAY ==
--- OUTSIDE RECORDS SUMMARY | 2024-08-08 07:31 | XMS_ITS | CCD ---
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 Name Role Phone DR GINA CULVER Primary Care Unavailable PAY, DR ROBLES Admitting Unavailable PAY, DR ROBLES Attending Unavailable IVETTE RICHMOND Consulting Unavailable Millie Gonzalez Primary Care Physician [phone] LAUREANO AMARAL Referring Unavailable LAUREANO AMARAL Attending Unavailable LAUREANO AMARAL Referring Unavailable LARISSA SUTTON Attending Unavailable LARISSA SUTTON Referring Unavailable CANCINO, MAXIMINO CHUL Referring Unavailable ZHUKIVSBELLA FRANKLANA M Referring Unavailabl e CANCINO, MAXIMINO CHUL Referring Unavailable HORANI, SUDHIR Admitting Unavailable HOLGUIN, GISELA Attending Unavailable DIAB, VANNA Referring Unavailable ALGHOTHOLY ELLIOTTAMAD Attending Unavailable ZHUMATILDA GOYALITLANA M Referring Unavailabl e ZHUJAY JAY MARY M Referring Unavailabl e CARLOS العراقي Attending Provider MD Luisito Roth Primary Care Provider Zoila العراقي Attending Unavailable Zoila العراقي Admitting Unavailable Luisito Roth Primary Care Unavailable Millie Gonzalez Attending Unavailable CarlosMillie Attending Unavailable CarlosMillie Attending Unavailable CarlosMillie Attending Unavailable Luisito Roth Admitting Unavailable NUNEZPHILLIP LYMAN Attending Unavailable Addy VELA Attending Unavailable CarlosMillie Attending Unavailable CarlosMillie Attending Unavailable Luisito Roth Attending Unavailable CarlosMillie Attending Unavailable Carlos, Millie Gallagher Attending Unavailable Carlos, Millie Gallagher Attending Unavailable Carlos, Millie L Attending Unavailable Carlos, Millie Gallagher Attending Unavailable Carlos, Millie Gallagher Attending Unavailable CarlosMillie Attending Unavailable Allergies Allergy Classification Reported Allergen(s) Allergy Type Date of Onset Reaction(s) Facility (1 source) No Known Medication Allergies; Translations: [No Known Medication Allergies] Propensity to adverse reactions (disorder) [facility] Repository Medications Current Medications Medication Drug Class(es) Dates Sig (Normalized) Sig (Original) aspirin 81 mg delayed release oral tablet (2 sources) Platelet Aggregation Inhibitor, Nonsteroidal Anti-inflammatory Drug Start: 05-27-2024 take 81 mg by mouth once daily Aspirin Active 81 MG PO Daily May 27, 2024 12:00am Start: 03-31-2024 take 81 mg by mouth once daily aspirin 81 mg, Oral, Daily, Refills(s) 0 Start Date: 03/31/24 Status: Ordered azithromycin 500 mg oral tablet (1 source) Macrolide Antimicrobial Start: 10-29-2023 End: 11-03-2023 take 1 tablet by mouth once daily Zithromax 500 mg oral tablet 500 mg = 1 tab(s), Oral, Daily, X 5 day(s), # 5 tab(s), Refills(s) 0, [id number], 158, cm, 10/29/23 13:27:00 EST, Height/Length Dosing, 53, kg, 10/29/23 13:27:00 EST, Weight Dosing Start Date: 10/29/23 Stop Date: 11/03/23 Status: Ordered Cholecalciferol (1 source) Vitamin D Start: 01-20-2021 take 100 ug by mouth once daily Cholecalciferol (Vitamin D3) Active 100 MCG PO Daily January 20, 2021 12:00am Compression stockings (2 sources) Start: 06-30-2023 Compression stockings Compression stockings, See Instructions, 1 EA, 0, wear stocking when on your feet > 8 hours per day, Supply Start Date: 06/30/23 Status: Ordered escitalopram 5 mg oral tablet (4 sources) Serotonin Reuptake Inhibitor Start: 07-12-2024 take 1 tablet by mouth once daily escitalopram 5 mg oral tablet See Instructions, Take 1 tablet by mouth once daily, # 90 tab(s), Refills(s) 0, Pharmacy: [id number], 158, cm, 06/06/24 14:02:00 EDT, Height/Length Dosing, 51.4, kg, 06/06/24 14:02:00 EDT, Weight Dosing Start Date: 07/12/24 Status: Ordered Start: 02-01-2024 End: 05-27-2024 take 5 mg by mouth once daily Escitalopram Oxalate Dis continued 5 MG PO Daily February 01, 2024 9:37am May 27, 2024 2:07pm Start: 10-25-2023 End: 02-01-2024 Escitalopram Oxalate Discont inued MG PO October 25, 2023 1:00am February 01, 2024 9:37am Start: 05-25-2023 take 1 tablet by phillip th once daily escitalopram 5 mg oral tablet 5 mg = 1 tab(s), Oral, Daily, # 90 tab(s), Refills(s) 3, Pharmacy: [id number], 157, cm, 05/25/23 15:27:00 EDT, Height/Length Dosing, 55.1, kg, 05/25/23 15:27:00 EDT, Weight Dosing Start Date: 05/25/23 Status: Ordered lidocaine 0.05 mg/mg medicated patch (1 source) Antiarrhythmic, Amide Local Anesthetic Start: 05-27-2024 apply 1 dose topically once daily Lidocaine Active 1 PATCH TOPICAL Daily 15 May 27, 2024 12:00am leave on most painful area for up to 12 hrs meloxicam 15 mg oral tablet (2 sources) Nonsteroidal Anti-inflammatory Drug Start: 07-11-2024 take 1 tablet by mouth once daily meloxicam 15 mg Tab See Instructions, Take 1 tablet by mouth once daily, # 30 tab(s), Refills(s) 0, Pharmacy: [facility], 158, cm, 06/06/24 14:02:00 EDT, Height/Length Dosing, 51.4, kg, 06/06/24 14:02:00 EDT, Weight Dosing Start Date: 07/11/24 Status: Ordered Start: 05-27-2024 Meloxicam Acti ve MG PO May 27, 2024 12:00am methylPREDNISolone (2 sources) Corticosteroid Start: 05-27-2024 Methylpredniso lone Active MG PO May 27, 2024 12:00am Start: 10-25-2023 End: 02-01-2024 take 1 tablet by mouth once Methylprednisolone (Medrol (Marco Antonio)) 4 mg tablets,dose pack Discontinued 0 PO per package directions October 25, 2023 1:00am February 01, 2024 9:33am PO PER PKG DIR for 6 days 24 hr oxybutynin chloride 10 mg extended release oral tablet (2 sources) Cholinergic Muscarinic Antagonist Start: 05-27-2024 Oxybutynin Chloride Active MG PO May 27, 2024 12:00am Start: 04-17-2024 take 1 tablet by phillip th once daily oxybutynin 10 mg ER Tab See Instructions, Take 1 tablet by mouth once daily, # 90 tab(s), Refills(s) 3, Pharmacy: [id number], 158, cm, 04/06/24 14:41:00 EDT, Height/Length Dosing, 54.1, kg, 04/06/24 14:41:00 EDT, Weight Dosing Start Date: 04/17/24 Status: Ordered Vitamin D3 2000 intl units oral Tab (2 sources) Start: 11-30-2022 take 1 tablet by mouth [...] 25, 2023 1:00am February 01, 2024 9:33am Problems Problem Classification Problem Date Documented Date Episodic/Chronic Acute bronchitis (3 sources) Acute bronchitis; Translations: [Acute bronchitis, unspecified] Onset: 10-29-2023 Episodic Acute myocardial infarction (3 sources) Non-ST elevation (NSTEMI) myocardial infarction; Translations: [Myocardial infarction] Onset: 03-25-2024 Chronic Anxiety disorders (4 sources) Anxiety disorder; Translations: [Anxiety disorder, unspecified] Onset: 03-25-2024 11-27-2022 Chronic Chronic obstructive pulmonary disease and bronchiectasis (1 source) Bronchitis; Translations: [Bronchitis, not specified as acute or chronic] 02-01-2024 Episodic Coronary atherosclerosis and other heart disease (1 source) History of non-ST segment elevation myocardial infarction 05-11-2024 Chronic Comment on above: Noted in [facility] page 4 , added per outpatient CDI policy. E Codes: Fall (1 source) Fall; Translations: [Unspecified fall, initial encounter] 05-27-2024 Episodic Gastritis and duodenitis (1 source) Gastritis 04-06-2024 Episodic Immunizations and screening for infectious disease (1 source) Contact with and (suspected) exposure to other viral communicable diseases; Translations: [Contact with or exposure to other viral diseases] 02-01-2024 Episodic Mycoses (2 sources) Onychomycosis 11-27-2022 Episodic Noninfectious gastroenteritis (2 sources) Noninfective gastroenteritis and colitis, unspecified; Translations: [Noninfective gastroenteritis and colitis, unspecified] Onset: 03-25-2024 Episodic Nutritional deficiencies (1 source) Vitamin D deficiency; Translations: [Vitamin D deficiency, unspecified] 02-01-2024 Chronic Other aftercare (1 source) Post-discharge follow-up 07-17-2024 Episodic Other and unspecified benign neoplasm (3 sources) History of polyp of colon; Translations: [Personal history of adenomatous and serrated colon polyps] Onset: 07-19-2024 Episodic Other circulatory disease (4 sources) Hemorrhage, not elsewhere classified; Translations: [HEMORRHAGE NOT ELSEWHERE CLASSIFIED] Onset: 07-17-2022 Episodic Other connective tissue disease (2 sources) Dupuytren's contracture 11-27-2022 Episodic Other connective tissue disease (2 sources) Triggering of digit 09-30-2023 Episodic Other connective tissue disease (1 source) Foot pain 05-12-2024 Episodic Other ear and sense organ disorders (1 source) Impacted cerumen 03-17-2024 Episodic Other injuries and conditions due to external causes (1 source) History of fall 05-29-2024 Episodic Other nervous system disorders (2 sources) 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 Chronic Other nervous system disorders (2 sources) Neuropathy of lower limb 06-30-2023 Chronic Other non-traumatic joint disorders (2 sources) Pain in elbow 06-30-2023 Episodic Other screening for suspected conditions (not mental disorders or infectious disease) (3 sources) Abnormal result of other cardiovascular function study; Translations: [Patient encounter status] Onset: 03-25-2024 Episodic Other skin disorders (2 sources) Ingrowing great toenail 09-30-2023 Episodic Other upper respiratory infections (6 sources) Acute frontal sinusitis, unspecified; Translations: [Acute frontal sinusitis] Onset: 10-29-2023 Episodic Otitis media and related conditions (2 sources) Acute bilateral otitis media ; Translations: [Otitis media, unspecified, bilateral] 02-01-2024 Episodic Residual codes; unclassified (2 sources) Other specified postprocedural states; Translations: [Other specified postprocedural states] Onset: 03-25-2024 Episodic Spondylosis; intervertebral disc disorders; other back problems (4 sources) Lumbosacral spondylosis; Translations: [Spondylosis] 11-27-2022 Chronic Spondylosis; intervertebral disc disorders; other back problems (4 sources) Low back pain; Translations: [Low back pain] 05-27-2024 Episodic Syncope (2 sources) Syncope 11-27-2022 Episodic Unclassified (4 sources) Patient encounter status 03-03-2023 Unclassified (1 source) Low back pain, unspecified; Translations: [Low back pain, unspecified] Onset: 05-27-2024 Unclassified (1 source) Body mass index 20-24 - normal 06-01-2024 Results Test Name Value Interpretation Reference Range Facility Ambulatory Visit Summaryon 1 09-18-2023 Ambulatory Visit Summary Ambulatory Visit Summary ARLEENJESS :1955 Visit Date:07/19/2024 Ambulatory Visit Instructions Your Diagnosis Personal history of adenomatous and serrated colon polyps Your Care Team Attending Physician - LISA MACIAS, Addy Koch Primary Care Physician - Millie Florentino This Is Your Medications List Contact prescribing physician if questions or concerns Misc Prescription (Compression stockings) aspirin cholecalciferol (Vitamin D3 2000 intl units oral Tab) escitalopram (escitalopram 5 mg oral tablet) meloxicam (meloxicam 15 mg Tab) oxybutynin (oxybutynin 10 mg ER Tab) Procedures Performed Colonoscopy (12/2017), Abdominal hysterectomy, Appendectomy, Cardiac catheterization, Cholecystectomy, Colonoscopy, D (dilation) and C (curettage) of uterus, Release of trigger finger, Release of trigger thumb. Discharge Vitals Heart Rate (Peripheral) 72 Respiratory Rate 16 Blood Pressure 122/58 Height 158 cm Height 62 in Weight 51 kg Weight 112.436 lb BMI 20.43 What to do next Scheduled Follow-Up Appointments Wednesday 2:30 PM EDT Where: [address] [address]- Medications What How Much When Why Instructions Unchanged aspirin 81 Milligram By Mouth Every day Contact prescribing physician if questions or concerns Unchanged cholecalciferol (Vitamin D3 2000 intl units oral Tab) 50 Microgram By Mouth Every day Contact prescribing physician if questions or concerns Unchanged escitalopram (escitalopram 5 mg oral tablet) See instructions Take 1 tablet by mouth once daily Contact prescribing physician if questions or concerns Unchanged meloxicam (meloxicam 15 mg Tab) See instructions Take 1 tablet by mouth once daily Contact prescribing physician if questions or concerns Unchanged Misc Prescription (Compression stockings) See instructions BMI 22.0-22.9, adult Non-smoker wear stocking when on your feet > 8 hours per day Contact prescribing physician if questions or concerns Unchanged oxybutynin (oxybutynin 10 mg ER Tab) See instructions Take 1 tablet by mouth once daily Contact prescribing physician if questions or concerns Allergies No Known Allergies No Known Medication Allergies Problems Ongoing - Any problem that you are currently receiving treatment for. Acute bronchitis Acute frontal sinusitis Anxiety disorder BMI 20.0-20.9, adult Breast cancer screening by mammogram Cerumen impaction Dupuytrens contracture Fluid level behind tympanic membrane of both ears Foot pain, right Gastritis History of non-ST elevation myocardial infarction (NSTEMI) History of recent fall Ingrown right big toenail Lower extremity neuropathy Onychomycosis Osteoarthritis of lumbosacral spine Pain in lower back Personal history of adenomatous and serrated colon polyps Personal history of colon polyps, unspecified Radiculopathy Right elbow pain Right low back pain Spondylosis Syncope Trigger ring finger of right hand Wellness examination Historical - Any problem that you are no longer receiving treatment for. Hospital discharge follow-up NSTEMI (non-ST elevated myocardial infarction) Sore throat Patient Survey You may receive a survey via text or e-mail asking about your office visit. Please share your experience with us by completing your survey. We appreciate your feedback and thank you for choosing us for your care. Normal [facility] Ambulatory Visit Summaryon 1 Ambulatory Visit Summary Ambulatory Visit Summary JESS BACON :1955 Visit Date:06/06/2024 Ambulatory Visit Instructions Your Diagnosis History of recent fall Pain in lower back BMI 20.0-20.9, adult Breast cancer screening by mammogram Your Care Team Attending Physician - Millie Florentino Primary Care Physician - Millie Florentino This Is Your Medications List Misc Prescription (Compression stockings) aspirin cholecalciferol (Vitamin D3 2000 intl units oral Tab) meloxicam (meloxicam 15 mg Tab) oxybutynin (oxybutynin 10 mg ER Tab) tramadol (traMADOL 50 mg Tab) Procedures Performed Appendectomy, Cholecystectomy, Colonoscopy, D (dilation) and C (curettage) of uterus, Partial hysterectomy. Discharge Vitals Temperature (Oral) 38.0 ?C Heart Rate (Peripheral) 68 Respiratory Rate 20 Blood Pressure 122/68 Height 158.0 cm Height 62 in Weight 51.40 kg Weight 113.08 lb BMI 20.59 What to do next Scheduled Follow-Up Appointments Wednesday 2:30 PM EDT Where: [facility] [address] [address]- Medications What How Much When [...] 1 tablet by mouth once daily Unchanged tramadol (traMADOL 50 mg Tab) 1 Tablets By Mouth Every 12 hours as needed for for pain History of recent fall Right low back pain BMI 21.0-21.9, adult Nonsmoker Allergies No Known Medication Allergies Problems Ongoing - Any problem that you are currently receiving treatment for. Acute bronchitis Acute frontal sinusitis Anxiety disorder BMI 20.0-20.9, adult Breast cancer screening by mammogram Cerumen impaction Colon cancer screening Dupuytrens contracture Fluid level behind tympanic membrane of both ears Foot pain, right Gastritis History of non-ST elevation myocardial infarction (NSTEMI) History of recent fall Hospital discharge follow-up Ingrown right big toenail Lower extremity neuropathy Onychomycosis Osteoarthritis of lumbosacral spine Pain in lower back Radiculopathy Right elbow pain Right low back [...] choosing us for your care. Normal [facility] Family Medicine Office/Clini c Noteon 06-06-2024 Family Medicine Office/Clinic Note Family Medicine Office/Clinic Note HPI Staff Jess is a 68 year old female presenting with needing clearance to go back to work [employer]- waiting for MRI - Has not called for them to schedule them Message in chart from consult with Dr Vela in [place] yesterday- Still has to call back History of Present Illness pt presents today to follow up on back pain due to injury. Review of Systems PHQ Score Initial Depression Screen Score: 0 SCORE Physical Exam Vitals & Measurements T: 38.0 ?C(Oral) HR: 68(Peripheral) RR: 20 BP: 122/68 SpO2: 96% HT: 62 in HT: 158.0 cm WT: 51.40 kg WT: 113.08 lb BMI: 20.59 General: alert, no acute distress ENMT: oral mucosa moist, no pharyngeal erythema or exudate Cardiovascular: regular rate and rhythm, normal peripheral perfusion Respiratory: Lungs CTA, respirations non labored Extremities: no deformity, no trauma Neurological: oriented x 4, LOC appropriate for age, CN II-XII intact, motor strength equal & normal bilaterally, speech normal Assessment/Plan 1. History of recent fall (Z91.81: History of falling) Patient had a fall on 05/29/24 when cleaning her ceiling fan. she fell and hit her lower back on corner of table. pt was very uncomfortable with pain at her last visit. today she is feeling much better. will give her a note to return to work on . 2. Pain in lower back (M54.50: Low back pain, unspecified) pt never heard back from hospital for MRI. since she is feeling better. she is going to call them and tell them she does not want it. will return to work 3. BMI 20.0-20.9, adult (Z68.20: Body mass index [BMI] 20.0-20.9, adult) BMI education 4. Breast cancer screening by mammogram (Z12.31: Encounter for screening mammogram for malignant neoplasm of breast) order for [facility] provided and faxed Follow-up No qualifying data available Problem List/Past Medical History Ongoing Acute bronchitis Acute frontal sinusitis Anxiety disorder BMI 20.0-20.9, adult Breast cancer screening by mammogram Cerumen impaction Colon cancer screening Dupuytrens contracture Fluid level behind tympanic membrane of both ears Foot pain, right Gastritis History of non-ST elevation myocardial infarction (NSTEMI) History of recent fall Hospital discharge follow-up Ingrown right big toenail Lower extremity neuropathy Onychomycosis Osteoarthritis of lumbosacral spine Pain in lower back Radiculopathy Right elbow pain Right low back [...] Alcohol Use, 11/30/2022 Household alcohol concerns: No., 06/01/2024 Substance Abuse - Denies Substance Abuse, 11/30/2022 Household substance abuse concerns: No., 06/01/2024 Tobacco - Denies Tobacco Use, 11/30/2022 Never (less than 100 in lifetime) Tobacco Use:. Never Smokeless Tobacco Use:. Cigarettes, Household tobacco concerns: No. Yes, 06/06/2024 Family History Emphysema: Father. Schizoaffective disorder: Mother. Immunizations Vaccine Date Status Comments influenza virus vaccine, inactivated - Not Given Patient Refuses influenza virus vaccine, inactivated - Not Given Patient Refuses SARS-CoV-2 mRNA (tozinameran 5y-11y) vac - Not Given Patient Refuses Normal [facility] Comment on above: Result Comment: Elec tronically Signed By: Millie Florentino\.br\Date and Time Signed: 06/06/24 14:24 EDT Provider Letteron 06-06-2024 Provider Letter Provider Letter [address] [place] [address] June 06, [address] [address] : 1955 To Whom It May Concern, Please excuse above patient from work due to injury. Date of Illness: From: 05/29/2024 To: 06/07/2024 May Return to Work On:06/08/2024 Restrictions: No vibrating hand tools Sincerely, JAH Jon [facility] Provider Letter Provider Letter [address] [place] [address] June 06, [address] [address] : 1955 To Whom It May Concern, Please excuse above patient from work due to injury. Date of Illness: From: 05/29/2024 To: 06/07/2024 May Return to Work On:06/08/2024 Restrictions: none Sincerely, JAH Jon Normal [facility] Ambulatory Visit Summaryon 0 06-02-2024 Ambulatory Visit Summary Ambulatory Visit Summary JESS BACON :1955 Visit Date:06/01/2024 Ambulatory Visit Instructions Your Diagnosis Encounter for subsequent annual wellness visit in Medicare patient Breast cancer screening by mammogram Immunization refused Anxiety disorder History of recent fall Osteoarthritis of lumbosacral spine Advanced directives, counseling/discussion Your Care Team Attending Physician - Millie Florentino Primary Care Physician - Millie Florentino This Is Your Medications List Misc Prescription (Compression stockings) aspirin cholecalciferol (Vitamin D3 2000 intl units oral Tab) meloxicam (meloxicam 15 mg Tab) oxybutynin (oxybutynin 10 mg ER Tab) tramadol (traMADOL 50 mg Tab) Procedures Performed Appendectomy, Cholecystectomy, Colonoscopy, D (dilation) and C (curettage) of uterus, Partial hysterectomy. Discharge Vitals Heart Rate (Peripheral) 94 Respiratory Rate 14 Blood Pressure 138/60 Height 158 cm Height 62 in Weight 50.7 kg Weight 111.54 lb BMI 20.31 What to do next Scheduled Follow-Up Appointments Wednesday 2:30 PM EDT Where: [place] [id number]- You Need to Complete the Following MA Mamm Screen w/CAD if perf and 3D Dimitri, 06/01/24, Routine, Order for Future Visit, Transport Mode: Ambulatory, Reason: Screening, No, Breast cancer screening by mammogram, pp_set_radiology_subsp ecialty, [facility] Medications What How Much When Why Instructions [...] 1 tablet by mouth once daily Unchanged tramadol (traMADOL 50 mg Tab) 1 Tablets By Mouth Every 12 hours as needed for for pain History of recent fall Right low back pain BMI 21.0-21.9, adult Nonsmoker Medications and Immunizations Administered Not Given influenza virus vaccine, inactivated, Patient Refuses Allergies No Known Medication Allergies Problems Ongoing - Any problem that you are currently receiving treatment for. Acute bronchitis Acute frontal sinusitis Anxiety disorder BMI 20.0-20.9, adult Breast cancer screening by mammogram Cerumen impaction Colon cancer screening Dupuytrens contracture Fluid level behind tympanic membrane [...] choosing us for your care. Education Materials Chronic Back Pain Chronic back pain is back pain that lasts longer than 3 months. The cause of your back pain may not be known. Some common causes include: ? Wear and tear (degenerative disease) of the bones, disks, or tissues that connect bones to each other (ligaments) in your back. ? Inflammation and stiffness in your back (arthritis). If you have chronic back pain, you may have times when the pain is more intense (flare-ups). You can also learn to manage the pain with home care. Follow these instructions at home: Watch for any changes in your symptoms. Take these actions to help with your pain: Managing pain and stiffness ? If told, put ice on the painful area. You may be told to apply ice for the first 24?48 hours after a flare-up starts. ? Put ice in a plastic bag. ? Place a towel between your skin and the bag. ? Leave the ice on for 20 minutes, 2?3 times per day. ? If told, apply heat to the affected area as often as told by your health care provider. Use the heat source that your provider recommends, such as a moist heat pack or a heating pad. ? Place a towel between your skin and the heat source. ? Leave the heat on for 20?30 minutes. ? If your skin turns bright red, remove the ice or heat right away to prevent skin damage. The risk of damage is higher if you cannot feel pain, heat, or cold. ? Try soaking i (more content not included)... [facility] Family Medicine Office/Clini c Noteon 06-02-2024 Family Medicine Office/Clinic Note Family Medicine Office/Clinic Note HPI Staff Jess is a 68 year old female presents today for colonoscopy & mammogram order. Order sent for mammogram to [facility] by Lydia Colonoscopy ? [facility] if they do this? History of Present Illness pt presents today for low back pain Physical Exam General: alert, no acute distress ENMT: oral mucosa moist, no pharyngeal erythema or exudate Cardiovascular: regular rate and rhythm, normal peripheral perfusion Respiratory: Lungs CTA, respirations non labored Extremities: no deformity, no trauma Neurological: oriented x 4, LOC appropriate for age, CN II-XII intact, motor strength equal & normal bilaterally, speech normal Assessment/Plan 1. Colon cancer screening (Z12.11: Encounter for screening for malignant neoplasm of colon) pt would like to have it done at [facility]. referral placed for Dr. Vela to do at [facility] Ordered: E&M of Est. Patient Straight Fwd 10-19 Min [id number] [facility] Internal Ambulatory Referral 2. Right low back pain (M54.50: Low back pain, unspecified) completed FMLA paperwork. pain is somewhat improving. waiting for MRI Ordered: E&M of Est. Patient Straight Fwd 10-19 Min [id number] Orders: 1125F Pain severity quantified; pain present Advance Care Planning discussed and documented 1123F Annual alcohol misuse screening, 15 min G0442 Annual Depression Screening 15 min G0444 Body Mass Index (BMI) documented 3008F Central Dual-energy X-Ray Absorptiometry (DXA) results documented 3095F Colorectal CA screening results documented and reviewed 3017F Current tobacco non-user 1036F Depression Screening Negative 3352F Fall Risk Screen 2 or more w/injury 1100F Functional status assessed 1170F Influenza immunization status assessed 1030F MA Mamm Screen w/CAD if perf and 3D Dimitri Medicare Subsequent Visit G0439 Medication list documented in medical record 1159F Pharmacologic therapy (other than vitamins/minerals) for osteoporosis prescribed 4005F Pneumococcus immunization status assessed 1022F Review of all meds by a prescribing practitioner or clinical pharmacist documented in EHR 1160F Screening mammography documented and reviewed 3014F Follow-up No qualifying data available Problem List/Past Medical History Ongoing Acute bronchitis Acute frontal sinusitis Anxiety disorder BMI 20.0-20.9, adult Breast cancer screening by mammogram Cerumen impaction Colon cancer screening Dupuytrens contracture Fluid level behind tympanic membrane [...] Alcohol Use, 11/30/2022 Household alcohol concerns: No., 06/01/2024 Substance Abuse - Denies Substance Abuse, 11/30/2022 Household substance abuse concerns: No., 06/01/2024 Tobacco - Denies Tobacco Use, 11/30/2022 Never (less than 100 in lifetime) Tobacco Use:. Never Smokeless Tobacco Use:. Cigarettes, Household tobacco concerns: No. Yes, 06/01/2024 Family History Emphysema: Father. Schizoaffective disorder: Mother. Immunizations Vaccine Date Status Comments influenza virus vaccine, inactivated - Not Given Patient Refuses influenza virus vaccine, inactivated - Not Given Patient Refuses SARS-CoV-2 mRNA (domitila 5y-11y) vac - Not Given Patient Refuses Normal [facility] Comment on above: Result Comment: Elec tronically Signed By: Millie Florentino.asaf\Date and Time Signed: 06/02/24 10:05 EDT Family Medicine Office/Clinic Note Family Medicine Office/Clinic Note Chief Complaint Subsequen Medicare Wellness Review of Systems PHQ Score Initial Depression Screen Score: 0 SCORE Physical Exam Vitals & Measurements HR: 94(Peripheral) RR: 14 BP: 138/60 SpO2: 98% HT: 158 cm HT: 62 in WT: 50.7 kg WT: 111.54 lb BMI: 20.31 Assessment/Plan 1. Encounter for subsequent annual wellness visit in Medicare patient (Z00.00: Encounter for general adult medical examination without abnormal findings) The patient was given a customized and personalized print out of all the current AHRQ USPSTF?s recommendations for preventative services and all current CDC recommended immunizations, relevant risk recommendations and the following patient brochures were given. Reviewed Medicare Prevention Services checklist. CDC-Falls Prevention and home safety screening reviewed. Patient admits to one fall in last 12 months, voices no worry about falling. Exhibits problems with sitting, standing and ambulation, due to pain from fall. See #5. Patient aware with keeping walk way area free of clutter to prevent tripping and/or falling. [place] Advance Directives reviewed. Documents provided to patient, encouraged to bring in for scanning into chart once complete. Patient denies any problems with ADL?s and Instrumental ADL?s. Cognitive screening completed with memory and clock face drawing. No deficits noted. Patient recited 3/3 memory words. Immunization record reviewed, discussed Shingrix vaccine with educational handout and availability. 0 COVID vaccines have been administered. Allergies and medications reviewed and up to date. No concerns with taking medication as prescribed. Reviewed OTC medications, medication list up to date. Blood tests were reviewed: Patient will discuss with pcp. No concerns with bowel/ bladder. Colonoscopy last completed 05/07/2023 with repeat in 5 years. Reviewed pain symptoms : chronic back, rates pain as a 5 out of 10, see #5 and #6. Reviewed all outside providers that patient follows. Last visit summary notes available in chart and/or have been requested. Patient declines any signs or symptoms of depression at this time. 8 minutes spent with screening and documentation. PHQ2 screening score 0. Patient denies alcohol use. Audit score 0. Follow up scheduled with PCP, today after wellness visit. AWV has been scheduled, 06/04/2025 Medicare provides yearly screening for alcohol and depression concerns. This is completed during our Medicare wellness visit for those who do not have a current diagnosis of depression or concerns with alcohol use. I spent a total of 17 minutes on this date of service which included preparing to see the patient, face to face patient care, completing clinical documentation, obtaining and/or reviewing separately obtained history, counseling and educating the patient with handouts. Explanations were provided with reviewing questionnaires. AUDIT risk assessment screening completed, risk score 0 with patient denying concerns with use. Completed PHQ-2 risk assessment for depression with risk score 0, negative findings. Patient has been reminded to notify the provider if there would be a change or concerns with symptoms with fear, unable to sleep, worrying too much or feeling down and/or sad with lost of interest with daily activities. Will continue to monitor with screening yearly during Medicare wellness visits. 2. Breast cancer screening by mammogram (Z12.31: Encounter for screening mammogram for malignant neoplasm of breast) Recommended mammogram screening discussed with patient during today's Medicare Wellness visit. Patient reminded with the importance of continued Breast Self-Awareness at home. Easy to read demonstration on how to perform a self breast exam: What to look for and feel for was reviewed and provided to patient. Mammogram ordered and has been faxed to the [facility] per patient request, hospital will call to schedule. Pt has been advised no deodorant, sprays or lotions. 3. Immunization refused (Z28.21: Immunization not carried out because of patient refusal) Patient declines yearly recommend influenza vaccine. Discussed increased risk factors vs benefits, reviewed importance to follow up and discuss with PCP 4. Anxiety disorder (F41.9: Anxiety disorder, unspecified) Patient reports anxiety is well controlled. GAD7 screening score: 0. Will continue to follow pcp with any concerns. 5. History of recent fall (Z91.81: History of falling) Fall Risk Assessment reviewed with a score of 40. Patient admits to a bad fall when standing on kitchen table. Plan of care reviewed with patient: Upon standing up, do not start ambulating quickly and be aware of feeling dizzy which could increase fall risk. Patient to be aware of surroundings at all times. Make sure proper lighting is on, do not ambulate at night in the dark. Remove area rugs that are in walkway to prevent tripping. Always use caution with stairs, check banister railing for sturdiness. (more content not included)... Normal [facility] Comment on above: Result Comment: Elec tronically Signed By: Millie Florentino\.br\Date and Time Signed: 06/02/24 09:25 EDT\.br\Electronically Co-Signed By: Lydia Rodrigues\.br\Date and Time Co-Signed: 06/01/24 15:44 EDT Ambulatory Visit Summaryon 0 05-29-2024 Ambulatory Visit [...] Appointments 2023 2:30 PM EDT With: Where: [address] [address]- 2023 3:00 PM EDT With: Millie Florentino Where: [address] [address]- Medications What How Much When [...] for choosing us for your care. Normal [facility] Family Medicine Office/Clini c Noteon 05-29-2024 Family Medicine Office/Clinic Note Family Medicine Office/Clinic Note Chief Complaint Pain following fall HPI Staff Pt presents today after a fall on Wednesday Onset: Wednesday Location:above Rt hip/Rt side Characteristics:_denie s bruising Aggravated by: walking, sitting, standing Relieved [...] pain, # 30 tab(s), Refills(s) 0, Pharmacy: [facility], 158, cm, 05/29/24 13:41:00 EDT, Height/Length Dosing, 52.5, kg, 05/29/24 13:41:00 EDT, Weight Dosing 2. Right low back pain (M54.50: Low back pain, unspecified) pt fell and landed on right lower back Ordered: tramadol, 50 mg = 1 tab(s), Oral, q12hr, PRN for pain, # 30 tab(s), Refills(s) 0, Pharmacy: [facility], 158, cm, 05/29/24 13:41:00 EDT, Height/Length Dosing, 52.5, kg, 05/29/24 13:41:00 EDT, Weight Dosing 3. BMI 21.0-21.9, adult (Z68.21: Body mass index [BMI] 21.0-21.9, adult) BMI education Ordered: tramadol, 50 mg = 1 tab(s), Oral, q12hr, PRN for pain, # 30 tab(s), Refills(s) 0, Pharmacy: [facility], 158, cm, 05/29/24 13:41:00 EDT, Height/Length [...] pain, # 30 tab(s), Refills(s) 0, Pharmacy: [facility], 158, cm, 05/29/24 13:41:00 EDT, Height/Length [...] vac - Not Given Patient Refuses Normal [facility] Comment on above: Result Comment: Elec tronically Signed By: Millie Florentino.asaf\Date and Time Signed: 05/29/24 14:13 EDT Provider Letteron 05-29-2024 Provider Letter Provider Letter May 29, 20[address] [place] [id number] : 1955 To Whom It May Concern, Please excuse above patient from work due to medical Date of Illness: From: _ 05-29-24 To: _ 05-30-24 May Return to Work On: 05-31-24 Restrictions: _ Comments: _ Sincerely, Normal [facility] XR lumbar spine min 4V*on XR lumbar spine min 4V* [facility] [place] [address] [place] [address] XRay Report Signed Patient: Jess Bacon MR#: [id number] 6 : 1955 Acct:[id number] Age/Sex: 68 / F ADM Date: 05/27/24 Loc: XDUCLY Room: Type: [facility] Attending Dr: Zoila العراقي APRN Copies to: Zoila العراقي APRN Ordering Provider: Zoila العارقي APRN Date of Service: 05/27/24 XR/XR lumbar [...] Marinelli Jr., D.O.05/27/2024 2:47 PM Dictation Location: RADIO-PC-15 Transcribed By: ALTHEA 05/27/24 1447 Dictated By: Eleuterio Marinelli Jr, DO 05/27/24 1446 Signed By: 05/27/24 1447 Normal [facility] Ambulatory Visit Summaryon 0 05-12-2024 [...] Appointments 2023 2:30 PM EDT With: Where: [address] [address]- 2023 3:00 PM EDT With: Millie Florentino Where: [address] [address]- Someone Will Contact You Regarding These Appointments [facility] [place] Ambulatory Referral, Podiatry, Dr. Trimble, 05/12/24 10:37:00 EDT, Foot pain, right Non-smoker BMI 20.0-20.9, adult Medications What How Much When Why Instructions New meloxicam (meloxicam 15 mg Tab) 1 Tablets By Mouth Every day Foot pain, right Non-smoker BMI 20.0-20.9, adult Pickup at [facility] New methylPREDNISolone (Medrol 4 mg Tab) 1 Packets By Mouth As Directed Foot pain, right Non-smoker BMI 20.0-20.9, adult Duration: 6 Days as directed on package labeling Pickup at [facility] Unchanged aspirin 81 Milligram By Mouth Every [...] Gram By Mouth Every day Pharmacy Information [facility]: [address] [place], [place] [id number] [phone] Allergies No Known Medication Allergies Problems Ongoing [...] you for choosing us for your care. [facility] Family Medicine Office/Clini c Noteon 05-12-2024 [...] Daily, # 30 tab(s), Refills(s) 0, Pharmacy: [facility], 158, cm, 05/12/24 10:25:00 EDT, Height/Length Dosing, 52.3, kg, 05/12/24 10:25:00 EDT, Weight Dosing methylPREDNISolone, = 1 packet(s), Oral, As Directed, as directed on package labeling, X 6 day(s), # 21 tab(s), Refills(s) 0, Pharmacy: [facility], 158, cm, 05/12/24 10:25:00 EDT, Height/Length Dosing, 52.3, kg, 05/12/24 10:25:00 EDT, Weight Dosing [facility] External Ambulatory Referral 2. Non-smoker (Z78.9: Other specified health status) continue not smoking Ordered: meloxicam, 15 mg = 1 tab(s), Oral, Daily, # 30 tab(s), Refills(s) 0, Pharmacy: [facility], 158, cm, 05/12/24 10:25:00 EDT, Height/Length Dosing, 52.3, kg, 05/12/24 10:25:00 EDT, Weight Dosing methylPREDNISolone, = 1 packet(s), Oral, As Directed, as directed on package labeling, X 6 day(s), # 21 tab(s), Refills(s) 0, Pharmacy: [facility], 158, cm, 05/12/24 10:25:00 EDT, Height/Length Dosing, 52.3, kg, 05/12/24 10:25:00 EDT, Weight Dosing Body Mass Index (BMI) documented 3008F Current tobacco non-user 1036F Depression Screening Negative 3352F [facility] Ambulatory Referral Influenza immunization status assessed [...] Daily, # 30 tab(s), Refills(s) 0, Pharmacy: [facility], 158, cm, 05/12/24 10:25:00 EDT, Height/Length Dosing, 52.3, kg, 05/12/24 10:25:00 EDT, Weight Dosing methylPREDNISolone, = 1 packet(s), Oral, As Directed, as directed on package labeling, X 6 day(s), # 21 tab(s), Refills(s) 0, Pharmacy: [facility], 158, cm, 05/12/24 10:25:00 EDT, Height/Length Dosing, 52.3, kg, 05/12/24 10:25:00 EDT, Weight Dosing Body Mass Index (BMI) documented 3008F Current tobacco non-user 1036F Depression Screening Negative 3352F [facility] External Ambulatory Referral Influenza immunization status assessed [...] Appendectomy, Cholecystecto (more content not included)... Normal [facility] Comment on above: Result Comment: Elec tronically Signed By: Millie Florentino\.br\Date and Time Signed: 05/12/24 10:43 EDT Follow-Upon 04-21-2024 Follow-Up [id number] Mary Bacon P 1955 F Date Provider Department Center 04/21/2024 3848-CRIS POLO CARD [facility] No family history on file Level of Service:92174 DC OFFICE/OUTPATIENT ESTABLISHED LOW MDM 20 MIN Reason for Visit and Comments: Follow-up [494899] - [facility] Follow up Concerns: No further cardiac concerns/symptoms. Normal [facility] Population Healthon 04-13-20 Population Health Population Health Case Information Case Priority: None Programs: -- Referral Source: Electrical Panel Builder Referral Reason: Care coordination Case Type: Transition [...] having no problems.' Patient denies CP, SOB, lightheadedness/dizzin ess. Patient is sleeping good. States she is [...] Patient has cardio follow up tomorrow at [facility] with [facility]. Patient denies any further questions or concerns. Communication Events Date: April 13, 2024 Method: Phone call Type: Outbound Duration (min): 4 Outcome: Case discussion Contact Type: data entry coordinator Contact Name: Mihcael Murary Notes: TCM#2- see tcm note. Created By: Michael Murray Date: March 31, 2024 Method: Phone call Type: Outbound Duration (min): 15 Outcome: Case discussion Contact Type: data entry coordinator Contact Name: Michael Murray Notes: TCM#1- see tcm note. Created By: Michael Murray [facility] Ambulatory Visit Summaryon 0 04-06-2024 Ambulatory [...] Follow-Up Appointments Wednesday 3:00 PM EDT Where: [address] [address]- 2023 1:00 PM EDT Where: [address] [address]- Medications What How Much When Why Instructions [...] medicines. These include steroids, antibiotics, and some zbyn-csq-zjrjmxf medicines, such as aspirin or ibuprofen. ? [...] medical histor (more content not included)... Normal [facility] Family Medicine Office/Clini c Noteon 04-06-2024 Family Medicine Office/Clinic Note Family Medicine Office/Clinic Note HPI Staff Jess is a 68 year old female presenting for TCM hospital follow up Patient of Millie Gonzalez, no open hours on Millie's schedule and she had to have this f/u Brought log of bp readings with her TCM: Hospital: [facility] Admission date: 03/25/24 Discharge date: 03/30/24 Symptoms the patient presented with: abd pain, N&V, diarrhea Dx non ST SD, type II demand ischemia, GE, overactive bladder [...] Schizoaffective disorder (more content not included)... Normal [facility] Comment on above: Result Comment: Elec skyeally Signed By: Gonzalez MACIAS, Luisito Candelaria\.asaf\Date and Time Signed: 04/06/24 14:53 EDT 3604-04-2024 36 Education Professional spoke with patient regarding a [facility] hospital follow up appointment for abd pain and nausea and vomiting. Patient stated she would like to follow up with her PCP. Normal [facility] 03-31-2024 36 Post Discharge Call Good morning, I am Geovanna Ram, RN a lead nurse from [facility]. I am calling you to [...] 03/31/2024 Patient Name Jess Bacon Date 03/31/24 [facility] 03-31-20 [facility] Case Information Case Priority: None Programs: -- Referral Source: Electrical Panel Builder Referral Reason: Care coordination Case Type: Transition Care Management Risk Score: -- Case Status: Enrolled (March 31, 2024) Date Assigned: March 31, 2024 Assigned By: Michael Murray Date Enrolled: March 31, 2024 Assigned Primary Personnel: Michael Murray Assigned Secondary Personnel: -- Case Physician: Gonzalez MACIAS, Luisito Candelaria Problems Ongoing Acute bronchitis Acute frontal sinusitis [...] Interventions Care Plan Progress Note Admit Date: [facility] Date of Discharge: 03/30/24 Follow-up appointment scheduled? yes, [facility]. Roth [facility] 04/06/24 at 1500 Did you understand your [...] gastroenteritis, overactive bladder. Patient was transferred from [facility] to [facility] on 03/25/24, she presented with abdominal cramping, [...] she is feeling 'good.' Patient denies any lightheadedness/dizzin ess. Denies any CP or SOB. Patient reports [...] returns to work on Wednesday04/03/24. 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 Patient of Ronald Carlos scheduled for TCM follow up with Dr. oRth d/t scheduling conflicts. 04/06/24 at 1500 and to bring medications, cardio f/u 04/14/24, Dr. Polo [facility]. CN explained TCM program and gave CN contact number. Communication Events Date: March 31, 2024 Method: Phone call Type: Outbound Duration (min): 15 Outcome: Case discussion Contact Type: data entry coordinator Contact Name: Michael Murray Notes: TCM#1- see tcm note. Created By: Michael Murray [facility] Telephoneon 03-31-2024 Telephone [phone] Mary Bacon az 1955 F Date Provider Department Center 03/31/2024 Tammie-GEOVANNA RAM [facility] No family history on file Reason for Visit and Comments: Hospital Follow-up [832] Normal [facility] 30on 03-30-2024 30 The patient is Moderately [...] hearing impaired and aphasic patients to use assistive/communicatio n devices Problem: Neurosensory - Adult Goal: Remains [...] hearing impaired and aphasic patients to use assistive/communicatio n devices Problem: Respiratory - Adult Goal: Achieves [...] and hemodynamic stability Outcome: Progressing Flowsheets (Taken 03/30/2024 0805) Maintains optimal cardiac output and hemodynamic stability: Monitor blood pressure and heart rate Monitor urine output and notify Licensed In (more content not included)... Normal [facility] CBCon 03-30-2024 Erythrocyte distribution width (RBC) [Ratio] 13.7 % Normal 11.5-15.0 [facility] Comment on above: Performed By: #### L [id number] ####[facility] ([facility])[address] [facility] [place] [address] ERYTHROCYTE MEAN CORPUSCULAR HEMOGLOBIN CONCENTRATION (G/DL) BY AUTOMATED 33.0 g/dL Normal 32.0-35.0 [facility] Comment on above: Performed By: #### L [id number] ####[facility] (BEAKER)[address] [facility] [place] [address] Hematocrit (Bld) [Volume fraction] 42.4 % Normal 36.0-48.0 [facility] Comment on above: Performed By: #### L [id number] ####[facility] (BEAKER)[address] [facility] [place] [address] Hemoglobin (Bld) [Mass/Vol] 14.0 g/dL Normal 12.0-15.0 [facility] Comment on above: Performed By: #### L [id number] ####[facility] (BEAKER)[address] [facility] [place] [address] MCH (RBC) [Entitic mass] 28.6 pg Normal 27.0-33.0 [facility] Comment on above: Performed By: #### L [id number] ####[facility] (BEAKER)[address] [place] [address] MCV (RBC) [Entitic vol] 86.7 fL Normal 82.0-98.0 [facility] Comment on above: Performed By: #### L [id number] ####[facility] ([facility] [place] [address] PLATELETS (10*3/UL) IN BLOOD AUTOMATED COUNT 188 10*3/uL Normal 150-400 [facility] Comment on above: Performed By: #### L [id number] ####[facility] ([facility])[address] [place] [address] RBC (Bld) [#/Vol] 4.89 10*6/uL Normal 3.80-5.00 [facility] Comment on above: Performed By: #### L [id number] ####[facility] ([facility])[address] [place] [address] WBC (Bld) [#/Vol] 6.22 10*3/uL Normal 4.00-10.60 [facility] Comment on above: Performed By: #### L [id number] ####[facility] ([facility])[address] [place] [address] COMPREHENSIVE METABOLIC PANE Mynor 03-30-2024 Albumin [Mass/Vol] 3.8 g/dL Normal 3.5-5.7 [facility] Comment on above: Performed By: #### L [id number] ####[facility] ([facility])[address] [place] [address] ALP [Catalytic activity/Vol] 36 U/L Normal 34-104 [facility] Comment on above: Performed By: #### L [id number] ####[facility] ([facility] [place] [address] ALT [Catalytic activity/Vol] 45 U/L Normal 7-52 [facility] Comment on above: Performed By: #### L [id number] ####[facility] [place] [address] Anion gap [Moles/Vol] 9 mmol/L Normal 7-20 [facility] Comment on above: Performed By: #### L [id number] ####[facility] (BEAKER)[address] [place] [address] AST [Catalytic activity/Vol] 49 U/L High 13-39 [facility] Comment on above: Performed By: #### L [id number] ####[facility] (BEAKER)[address] [place] [address] Bilirubin [Mass/Vol] 0.6 mg/dL Normal 0.3-1.0 [facility] Comment on above: Performed By: #### L [id number] ####[facility] (BEAKER)[address] [place] [address] Calcium [Mass/Vol] 9.0 mg/dL Normal 8.6-10.3 [facility] Comment on above: Performed By: #### L [id number] ####[facility] ([facility] [place] [address] Chloride [Moles/Vol] 103 mmol/L Normal 98-107 [facility] [facility] Comment on above: Performed By: #### L [id number] ####[facility] ([facility] [place] [address] CO2 [Moles/Vol] 30 mmol/L Normal 21-31 [facility] Comment on above: Performed By: #### L [id number] ####[facility] ([facility] [place] [address] Creatinine [Mass/Vol] 0.65 mg/dL Normal 0.60-1.20 [facility] Comment on above: Performed By: #### L [id number] ####[facility] ([facility] [place] [address] GLOMERULAR FILTRATION RATE ML/MIN/1.73 SQ M.PREDICTED 95.8 mL/min/1.73m*2 Normal >60.0 [facility] Comment on above: Result Comment: The [facility]???s estimated glomerular filtration rate (eGFR) will no [...] L [id number] ####[facility] ([facility])[address] [place] [address] Glucose [Mass/Vol] 91 mg/dL Normal 70-100 [facility] Comment on above: Performed By: #### L [id number] ####[facility] ([facility])[address] [place] [address] Potassium [Moles/Vol] 4.3 mmol/L Normal 3.5-5.1 [facility] Comment on above: Performed By: #### L [id number] ####[facility] ([facility])[address] [place] [address] Protein [Mass/Vol] 6.1 g/dL Normal 6.0-8.3 [facility] Comment on above: Performed By: #### L [id number] ####[facility] ([facility])[address] [place] [address] Sodium [Moles/Vol] 138 mmol/L Normal 136-145 [facility] Comment on above: Performed By: #### L [id number] ####[facility] ([facility] [place] [address] Urea nitrogen [Mass/Vol] 18 mg/dL Normal 7-25 [facility] Comment on above: Performed By: #### L [id number] ####[facility] ([facility] [place] [address] UREA NITROGEN/CREATININE (MASS RATIO) IN SER/PLAS 27.7 Normal [facility] Comment on above: Performed By: #### L [id number] ####[facility] ([facility])[address] [place] [address] 30on 03-29-2024 30 Problem: Pain - Adul [...] and behaviors that affect risk of falls [place] fall precautions as indicated by assessment Educate patient/family on patient safety, including physical limitations Instruct patient to call for assistance with activity based on assessment Modify environment to reduce risk of injury Consider OT/PT consult to assist with strengthening/mobility Problem: Discharge Planning Goal: Discharge to home [...] and prevent overall improvement and discharge Normal [facility] 30 Daily Case Managemen t Update Multidisciplinary [...] Home OT Recommendations: Home New Consults: Normal [facility] 30 The patient is Moderately Stable - Low risk of patient condition declining or worsening The patient's goals for the shift include comfort/rest The clinical goals for the shift include stable vital signs Problem: Neurosensory - Adult Goal: Achieves stable or improved neurological status Outcome: Progressing Flowsheets (Taken 03/29/2024753) Achieves stable or improved neurological status: Assess for and report changes in neurological status Maintain blood pressure and fluid volume within ordered parameters to optimize cerebral perfusion and minimize risk of hemorrhage Initiate measures to prevent increased intracranial pressure Monitor temperature, glucose, and sodium. Initiate appropriate interventions as ordered Goal: Absence of seizures Outcome: Progressing Flowsheets (Taken 03/29/2024753) Absence of seizures: Monitor for seizure activity. If seizure occurs, document type and location of movements and any associated apnea If seizure occurs, turn head to side and suction secretions as needed Administer anticonvulsants as ordered Support airway/breathing, administer oxygen as needed Goal: Remains free of injury related to seizures activity Outcome: Progressing Flowsheets (Taken 03/29/2024753) Remains free of injury related to seizure [...] hearing impaired and aphasic patients to use assistive/communicatio n devices Problem: Respiratory - Adult Goal: Achieves [...] function Outc (more content not included)... Normal [facility] CBCon 03-29-2024 Erythrocyte distribution width (RBC) [Ratio] 13.6 % Normal 11.5-15.0 [facility] Comment on above: Performed By: #### L [id number] ####[facility] (BE[facility]ER)[address] [place] [address] ERYTHROCYTE MEAN CORPUSCULAR HEMOGLOBIN CONCENTRATION (G/DL) BY AUTOMATED 32.5 g/dL Normal 32.0-35.0 [facility] Comment on above: Performed By: #### L [id number] ####[facility] ([facility] [place] [address] Hematocrit (Bld) [Volume fraction] 42.8 % Normal 36.0-48.0 [facility] Comment on above: Performed By: #### L [id number] ####[facility] ([facility] [place] [address] Hemoglobin (Bld) [Mass/Vol] 13.9 g/dL Normal 12.0-15.0 [facility] Comment on above: Performed By: #### L [id number] ####[facility] ([facility] [place] [address] MCH (RBC) [Entitic mass] 29.0 pg Normal 27.0-33.0 [facility] Comment on above: Performed By: #### L [id number] ####[facility] ([facility])[address] [place] [address] MCV (RBC) [Entitic vol] 89.4 fL Normal 82.0-98.0 [facility] Comment on above: Performed By: #### L [id number] ####[facility] ([facility] [place] [address] PLATELETS (10*3/UL) IN BLOOD AUTOMATED COUNT 182 10*3/uL Normal 150-400 [facility] Comment on above: Performed By: #### L [id number] ####[facility] (BE[facility]ER)[address] [place] [address] RBC (Bld) [#/Vol] 4.79 10*6/uL Normal 3.80-5.00 [facility] Comment on above: Performed By: #### L [id number] ####[facility] ([facility])[address] [place] [address] WBC (Bld) [#/Vol] 5.41 10*3/uL Normal 4.00-10.60 [facility] Comment on above: Performed By: #### L [id number] ####[facility] ([facility]ER)[address] [place] [address] COMPREHENSIVE METABOLIC PANE Mynor 03-29-2024 Albumin [Mass/Vol] 3.7 g/dL Normal 3.5-5.7 [facility] Comment on above: Performed By: #### L [id number] ####[facility] ([facility] [place] [address] ALP [Catalytic activity/Vol] 34 U/L Normal 34-104 [facility] Comment on above: Performed By: #### L [id number] ####[facility] ([facility]ER)[address] [place] [address] ALT [Catalytic activity/Vol] 24 U/L Normal 7-52 [facility] Comment on above: Performed By: #### L [id number] ####[facility] ([facility])[address] [place] [address] Anion gap [Moles/Vol] 10 mmol/L Normal 7-20 [facility] Comment on above: Performed By: #### L [id number] ####[facility] ([facility])[address] [place] [address] AST [Catalytic activity/Vol] 31 U/L Normal 13-39 [facility] Comment on above: Performed By: #### L [id number] ####[facility] ([facility] [place] [address] Bilirubin [Mass/Vol] 0.7 mg/dL Normal 0.3-1.0 [facility] Comment on above: Performed By: #### L [id number] ####[facility] ([facility])[address] [place] [address] Calcium [Mass/Vol] 9.1 mg/dL Normal 8.6-10.3 [facility] Comment on above: Performed By: #### L [id number] ####[facility] ([facility])[address] [place] [address] Chloride [Moles/Vol] 105 mmol/L Normal 98-107 [facility] Comment on above: Performed By: #### L [id number] ####[facility] ([facility])[address] [place] [address] CO2 [Moles/Vol] 30 mmol/L Normal 21-31 [facility] Comment on above: Performed By: #### L [id number] ####[facility] ([facility])[address] [address] Creatinine [Mass/Vol] 0.76 mg/dL Normal 0.60-1.20 [facility] Comment on above: Performed By: #### L [id number] ####[facility] ([facility])[address] [address] GLOMERULAR FILTRATION RATE ML/MIN/1.73 SQ M.PREDICTED 85.3 mL/min/1.73m*2 Normal >60.0 [facility] Comment on above: Result Comment: The [facility]???s estimated glomerular filtration rate (eGFR) will no [...] L [id number] ####[facility] ([facility])[address] [place] [address] Glucose [Mass/Vol] 100 mg/dL Normal 70-100 [facility] Comment on above: Performed By: #### L [id number] ####[facility] ([facility]ER)[address] [place] [address] Potassium [Moles/Vol] 4.8 mmol/L Normal 3.5-5.1 [facility] Comment on above: Performed By: #### L [id number] ####[facility] ([facility]ER)[address] [place] [address] Protein [Mass/Vol] 6.0 g/dL Normal 6.0-8.3 [facility] Comment on above: Performed By: #### L [id number] ####[facility] ([facility]ER)[address] [place] [address] Sodium [Moles/Vol] 140 mmol/L Normal 136-145 [facility] Comment on above: Performed By: #### L [id number] ####[facility] ([facility]ER)[address] [place] [address] Urea nitrogen [Mass/Vol] 16 mg/dL Normal 7-25 [facility] Comment on above: Performed By: #### L [id number] ####[facility] ([facility] [place] [address] UREA NITROGEN/CREATININE (MASS RATIO) IN SER/PLAS 21.1 Normal [facility] Comment on above: Performed By: #### L [id number] ####[facility] ([facility] [place] [address] HPon 03-29-2024 HP H&P reviewed. The patient was examined and there are no changes to the H&P. Jess Bacon is a 68 y.o. female with no known past medical history, no medications at home presented to the hospital due to elevated troponin the patient initially went to [facility] due to symptoms of abdominal pain, nausea vomiting diarrhea up to 8 times a day, watery consistency, referred to [facility] for NSTEMI. Lexiscan Myocardial Perfusion Stress Tests is positive at the inferolateral section. Patient will undergo diagnostic CORS. Normal [facility] 30on 03-28-2024 30 The patient is Moderately Stable - Low risk of patient condition declining or worsening The patient's goals for the shift include comfort, rest The clinical goals for the shift include stable vitals, comfort Normal [facility] 30 Daily Case Managemen t Update Multidisciplinary [...] Home OT Recommendations: Home New Consults: Normal [facility] 30 The patient is Moderately Stable - Low risk of patient condition declining or worsening The patient's goals for the shift include stress test The clinical goals for the shift include stable vss Problem: Neurosensory - Adult Goal: Achieves stable or improved neurological status Outcome: Progressing Flowsheets (Taken 03/28/2024746) Achieves stable or improved neurological status: Assess [...] hearing impaired and aphasic patients to use assistive/communicatio n devices Problem: Respiratory - Adult Goal: Achieves [...] difficulty Respiratory therapy support as indicated Normal [facility] CBCon 03-28-2024 Erythrocyte distribution width (RBC) [Ratio] 13.7 % Normal 11.5-15.0 [facility] Comment on above: Performed By: #### L [id number] ####[facility] ([facility]ER)[address] [place] [address] ERYTHROCYTE MEAN CORPUSCULAR HEMOGLOBIN CONCENTRATION (G/DL) BY AUTOMATED 32.3 g/dL Normal 32.0-35.0 [facility] Comment on above: Performed By: #### L [id number] ####[facility] ([facility]ER)[address] [place] [address] Hematocrit (Bld) [Volume fraction] 40.3 % Normal 36.0-48.0 [facility] Comment on above: Performed By: #### L [id number] ####[facility] ([facility]ER)[address] [place] [address] Hemoglobin (Bld) [Mass/Vol] 13.0 g/dL Normal 12.0-15.0 [facility] Comment on above: Performed By: #### L [id number] ####[facility] ([facility] [place] [address] MCH (RBC) [Entitic mass] 28.8 pg Normal 27.0-33.0 [facility] Comment on above: Performed By: #### L [id number] ####[facility] ([facility] [place] [address] MCV (RBC) [Entitic vol] 89.2 fL Normal 82.0-98.0 [facility] Comment on above: Performed By: #### L [id number] ####[facility] ([facility])[address] [place] [address] PLATELETS (10*3/UL) IN BLOOD AUTOMATED COUNT 179 10*3/uL Normal 150-400 [facility] Comment on above: Performed By: #### L [id number] ####[facility] ([facility])[address] [place] [address] RBC (Bld) [#/Vol] 4.52 10*6/uL Normal 3.80-5.00 [facility] Comment on above: Performed By: #### L [id number] ####[facility] ([facility])[address] [address] WBC (Bld) [#/Vol] 6.25 10*3/uL Normal 4.00-10.60 [facility] Comment on above: Performed By: #### L [id number] ####[facility] ([facility] [place] [address] COMPREHENSIVE METABOLIC PANE Mynor 03-28-2024 Albumin [Mass/Vol] 3.5 g/dL Normal 3.5-5.7 [facility] Comment on above: Performed By: #### L [id number] ####[facility] ([facility] [place] [address] ALP [Catalytic activity/Vol] 32 U/L Low 34-104 [facility] Comment on above: Performed By: #### L [id number] ####[facility] ([facility] [place] [address] ALT [Catalytic activity/Vol] 13 U/L Normal 7-52 [facility] Comment on above: Performed By: #### L [id number] ####[facility] ([facility] [place] [address] Anion gap [Moles/Vol] 9 mmol/L Normal 7-20 [facility] Comment on above: Performed By: #### L [id number] ####[facility] ([facility])[address] [place] [address] AST [Catalytic activity/Vol] 16 U/L Normal 13-39 [facility] Comment on above: Performed By: #### L [id number] ####[facility] ([facility])[address] [place] [address] Bilirubin [Mass/Vol] 0.6 mg/dL Normal 0.3-1.0 [facility] Comment on above: Performed By: #### L [id number] ####[facility] ([facility])[address] [place] [address] Calcium [Mass/Vol] 8.7 mg/dL Normal 8.6-10.3 [facility] Comment on above: Performed By: #### L [id number] ####[facility] ([facility])[address] [place] [address] Chloride [Moles/Vol] 106 mmol/L Normal 98-107 [facility] Comment on above: Performed By: #### L [id number] ####[facility] ([facility] [place] [address] CO2 [Moles/Vol] 29 mmol/L Normal 21-31 [facility] Comment on above: Performed By: #### L [id number] ####[facility] (BEAKER)[address] [place] [address] Creatinine [Mass/Vol] 0.71 mg/dL Normal 0.60-1.20 [facility] Comment on above: Performed By: #### L [id number] ####[facility] ([facility])[address] [facility] [place] [address] GLOMERULAR FILTRATION RATE ML/MIN/1.73 SQ M.PREDICTED 92.6 mL/min/1.73m*2 Normal >60.0 [facility] Comment on above: Result Comment: The [facility]???s estimated glomerular filtration rate (eGFR) will no [...] L [id number] ####[facility] ([facility])[address] [facility] [place] [address] Glucose [Mass/Vol] 92 mg/dL Normal 70-100 [facility] Comment on above: Performed By: #### L [id number] ####[facility] ([facility])[address] [facility] [place] [address] Potassium [Moles/Vol] 4.3 mmol/L Normal 3.5-5.1 [facility] Comment on above: Performed By: #### L [id number] ####[facility] ([facility])[address] [facility] [place] [address] Protein [Mass/Vol] 5.6 g/dL Low 6.0-8.3 [facility] Comment on above: Performed By: #### L [id number] ####[facility] ([facility])[address] [facility] [place] [address] Sodium [Moles/Vol] 140 mmol/L Normal 136-145 [facility] Comment on above: Performed By: #### L [id number] ####[facility] ([facility])[address] [facility] [place] [address] Urea nitrogen [Mass/Vol] 17 mg/dL Normal 7-25 [facility] Comment on above: Performed By: #### L [id number] ####[facility] ([facility])[address] [place] [address] UREA NITROGEN/CREATININE (MASS RATIO) IN SER/PLAS 23.9 Normal [facility] Comment on above: Performed By: #### L [id number] ####[facility] ([facility])[address] [place] [address] Prep for Procedureon 024 Prep for Procedure [id number] Mary Bacon mi 1955 F Date Provider Department Center 03/28/2024 [id number] Heart[facility] No family history on file Normal [facility] TROPONIN Ion 03-28-2024 Troponin I.cardiac [Mass/Vol] 0.62 ng/mL Critically high 0.00-0.04 [facility] Comment on above: Result Comment: M-DC EVIOUS CRITICAL RESULT Previous result verified on 03/28/2024 0018 on specimen/case [id number] called with component Troponin I for procedure Troponin I with value 0.99 ng/mL. Performed By: #### L [id number] ####[facility] ([facility])[address] [place] [address] 30on 03-27-2024 30 Daily Case Managemen t Update Multidisciplinary rounds have been completed. Barriers to Discharge et per Progress Note/s: Original DA from [facility] on 03-25 for NSTEMI. Hep gtt. [...] OT? Answer: discharge recommendations 03/26/24 1654 Normal [facility] 30 The patient is Moderately Stable - Low risk of patient condition declining or worsening The patient's goals for the shift include complete testing The clinical goals for the shift include vss Over the shift, the patient did not make progress toward the following goals. Barriers to progression include . Recommendations to address these barriers include . Normal [facility] ANTI-XA (HEPARIN LEVEL)on HEPARIN UNFRACTIONATED (U/ML) IN PPP BY CHROMOGENIC METHOD 0.37 IU/mL Normal 0.3-0.7 [facility] Comment on above: Order Comment: Check anti-Xa level every 6 hours while on heparin infusion, or per protocol. Result Comment: Wirt roxaban and Apixaban will interfere with the anti Xa assay used to monitor UFH and LMWH. Performed By: #### L [id number] #### [facility] (BEAKER) [address] [place] [address] CBCon 03-27-2024 Erythrocyte distribution width (RBC) [Ratio] 13.7 % Normal 11.5-15.0 [facility] Comment on above: Performed By: #### L [id number] #### [facility] (AKER) [address] [place] [address] ERYTHROCYTE MEAN CORPUSCULAR HEMOGLOBIN CONCENTRATION (G/DL) BY AUTOMATED 32.4 g/dL Normal 32.0-35.0 [facility] Comment on above: Performed By: #### L [id number] #### [facility] (BE[facility]ER) [address] [place] [address] Hematocrit (Bld) [Volume fraction] 41.0 % Normal 36.0-48.0 [facility] Comment on above: Performed By: #### L [id number] #### [facility] ([facility]ER) [address] [place] [address] Hemoglobin (Bld) [Mass/Vol] 13.3 g/dL Normal 12.0-15.0 [facility] Comment on above: Performed By: #### L [id number] #### [facility] [address] [place] [address] MCH (RBC) [Entitic mass] 28.5 pg Normal 27.0-33.0 [facility] Comment on above: Performed By: #### L [id number] #### [facility] ([facility]) [address] [place] [address] MCV (RBC) [Entitic vol] 88.0 fL Normal 82.0-98.0 [facility] Comment on above: Performed By: #### L [id number] #### [facility] ([facility]) [address] [place] [address] PLATELETS (10*3/UL) IN BLOOD AUTOMATED COUNT 182 10*3/uL Normal 150-400 [facility] Comment on above: Performed By: #### L [id number] #### [facility] ([facility]) [address] [place] [address] RBC (Bld) [#/Vol] 4.66 10*6/uL Normal 3.80-5.00 [facility] Comment on above: Performed By: #### L [id number] #### [facility] ([facility]) [address] [place] [address] WBC (Bld) [#/Vol] 5.82 10*3/uL Normal 4.00-10.60 [facility] Comment on above: Performed By: #### L [id number] #### [facility] ([facility]) [address] [place] [address] COMPREHENSIVE METABOLIC PANE Mynor 03-27-2024 Albumin [Mass/Vol] 3.4 g/dL Low 3.5-5.7 [facility] Comment on above: Performed By: #### L [id number] #### [facility] [address] [place] [address] ALP [Catalytic activity/Vol] 33 U/L Low 34-104 [facility] Comment on above: Performed By: #### L [id number] #### [facility] ([facility]) [address] [place] [address] ALT [Catalytic activity/Vol] 13 U/L Normal 7-52 [facility] Comment on above: Performed By: #### L [id number] #### [facility] ([facility]) [address] [place] [address] Anion gap [Moles/Vol] 11 mmol/L Normal 7-20 [facility] [facility] Comment on above: Performed By: #### L [id number] #### [facility] ([facility]) [address] [place] [address] AST [Catalytic activity/Vol] 18 U/L Normal 13-39 [facility] Comment on above: Performed By: #### L [id number] #### [facility] (BEAK[facility]) [address] [place] [address] Bilirubin [Mass/Vol] 0.4 mg/dL Normal 0.3-1.0 [facility] Comment on above: Performed By: #### L [id number] #### [facility] (BEAKER) [address] [place] [address] Calcium [Mass/Vol] 8.6 mg/dL Normal 8.6-10.3 [facility] Comment on above: Performed By: #### L [id number] #### [facility] ([facility]) [address] [place] [address] Chloride [Moles/Vol] 107 mmol/L Normal 98-107 [facility] Comment on above: Performed By: #### L [id number] #### [facility] ([facility]) [address] [place] [address] CO2 [Moles/Vol] 28 mmol/L Normal 21-31 [facility] Comment on above: Performed By: #### L [id number] #### [facility] ([facility]) [address] [place] [address] Creatinine [Mass/Vol] 0.69 mg/dL Normal 0.60-1.20 [facility] Comment on above: Performed By: #### L [id number] #### [facility] ([facility]) [address] [place] [address] GLOMERULAR FILTRATION RATE ML/MIN/1.73 SQ M.PREDICTED 94.5 mL/min/1.73m*2 Normal >60.0 [facility] Comment on above: Result Comment: The [facility]???s estimated glomerular filtration rate (eGFR) will no [...] [id number] #### [facility] ([facility]) [address] [place] [address] Glucose [Mass/Vol] 92 mg/dL Normal 70-100 [facility] Comment on above: Performed By: #### L [id number] #### [facility] ([facility]) [address] [place] [address] Potassium [Moles/Vol] 4.2 mmol/L Normal 3.5-5.1 [facility] Comment on above: Performed By: #### L [id number] #### [facility] ([facility]) [address] [place] [address] Protein [Mass/Vol] 5.4 g/dL Low 6.0-8.3 [facility] Comment on above: Performed By: #### L [id number] #### [facility] ([facility]) [address] [place] [address] Sodium [Moles/Vol] 142 mmol/L Normal 136-145 [facility] Comment on above: Performed By: #### L [id number] #### [facility] (BEAKER) [address] [place] [address] Urea nitrogen [Mass/Vol] 16 mg/dL Normal 7-25 [facility] Comment on above: Performed By: #### L [id number] #### [facility] (BEAKER) [address] [place] [address] UREA NITROGEN/CREATININE (MASS RATIO) IN SER/PLAS 23.2 Normal [facility] Comment on above: Performed By: #### L [id number] #### [facility] (BEAKER) [address] [place] [address] CONSULTon 03-27-2024 CONSULT -- Attestation signed by Dejan Lewis MD at 03/31/2024 8:59 AM The patient was discharged home before I was able to see her. She will be followed up in the GI clinic as an outpatient. Initial Gastroenterology/Hepat ology Consultation Note IDENTIFYING DATA PATIENT: Jess Bacon ADMIT DATE: 03/25/2024 TIME OF EVALUATION: 03/27/2024 2:35 PM Reason for Consult: Postprandial abdominal pain Admitting Physician: Maximino Cancino MD HISTORY OF PRESENT ILLNESS Jess Bacon is a 68 y.o. female with no significant PMHx. She initially presented to [facility] with abdominal pain, nausea/vomiting, and diarrhea, found to be dehydrated and resuscitated with IV fluids. Patient subsequently was found to have elevated troponin, therefore was transferred to [facility] due to concern for NSTEMI. GI was [...] as in HPI GENITOURINARY: negative INTEGUMENT/BREAST: negative HEMATOLOGIC/LYMPHATIC: negative ALLERGIC/IMMUNOLOGIC: negative ENDOCRINE: negative MUSCULOSKELETAL: negative [...] 6.1 B12/Folate/Iron studies: No results found for: [id number] , FOLATE , IRON , TIBC , UIBC , IRON (more content not included)... Normal [facility] TROPONIN Ion 03-27-2024 Troponin I.cardiac [Mass/Vol] 0.99 ng/mL Critically high 0.00-0.04 [facility] Comment on above: Result Comment: M-DC EVIOUS CRITICAL RESULT Previous result verified on 03/27/2024 1708 on specimen/case [id number] called with component Troponin I for procedure Troponin I with value 0.83 ng/mL. Performed By: #### L [id number] ####[facility] ([facility])[address] [place] [address] Troponin I.cardiac [Mass/Vol] 0.83 ng/mL Critically high 0.00-0.04 [facility] Comment on above: Result Comment: M-DC EVIOUS CRITICAL RESULT Previous result verified on 03/27/2024 0148 on specimen/case - called with component Troponin I for procedure Troponin I with value 2.59 ng/mL. Performed By: #### L [id number] #### [facility] ([facility]) [address] [place] [address] Troponin I.cardiac [Mass/Vol] 2.59 ng/mL Critically high 0.00-0.04 [facility] Comment on above: Result Comment: M-DC EVIOUS CRITICAL RESULT Previous result verified on 03/26/2024 1931 on specimen/case - called with component Troponin I for procedure Troponin I with value 2.44 ng/mL. Performed By: #### L [id number] #### [facility] ([facility]) [address] [place] [address] 30on 03-26-2024 30 The patient is Moderately Stable - Low risk of patient condition declining or worsening The patient's goals for the shift include feel better The clinical goals for the shift include stable vitals Over the shift, the patient did not make progress toward the following goals. Barriers to progression include . Recommendations to address these barriers include . Normal [facility] 30 The patient is Moderately Stable - Low risk of patient condition declining or worsening The patient's goals for the shift include comfort The clinical goals for the shift include stable vitals Normal [facility] ANTI-XA (HEPARIN LEVEL)on HEPARIN UNFRACTIONATED (U/ML) IN PPP BY CHROMOGENIC METHOD 0.52 IU/mL Normal 0.3-0.7 [facility] Comment on above: Order Comment: Check anti-Xa level every 6 hours while on heparin infusion, or per protocol. Result Comment: Cassi roxaban and Apixaban will interfere with the anti Xa assay used to monitor UFH and LMWH. Performed By: #### L [id number] #### [facility] ([facility]) [address] [place] [address] HEPARIN UNFRACTIONATED (U/ML) IN PPP BY CHROMOGENIC METHOD 0.65 IU/mL Normal 0.3-0.7 [facility] Comment on above: Order Comment: Check anti-Xa level every 6 hours while on heparin infusion, or per protocol. Result Comment: Wirt roxaban and Apixaban will interfere with the anti Xa assay used to monitor UFH and LMWH. Performed By: #### L [id number] #### [facility] ([facility]) [address] [place] [address] HEPARIN UNFRACTIONATED (U/ML) IN PPP BY CHROMOGENIC METHOD 0.80 IU/mL High 0.3-0.7 [facility] Comment on above: Order Comment: Check anti-Xa level every 6 hours while on heparin infusion, or per protocol. Result Comment: Wirt roxaban and Apixaban will interfere with the anti Xa assay used to monitor UFH and LMWH. Performed By: #### L [id number] #### [facility] [address] [place] [address] CBCon 03-26-2024 Erythrocyte distribution width (RBC) [Ratio] 13.8 % Normal 11.5-15.0 [facility] Comment on above: Performed By: #### L [id number] #### [facility] ([facility]) [address] [place] [address] ERYTHROCYTE MEAN CORPUSCULAR HEMOGLOBIN CONCENTRATION (G/DL) BY AUTOMATED 33.1 g/dL Normal 32.0-35.0 [facility] Comment on above: Performed By: #### L [id number] #### [facility] [address] [place] [address] Hematocrit (Bld) [Volume fraction] 40.8 % Normal 36.0-48.0 [facility] Comment on above: Performed By: #### L [id number] #### [facility] ([facility]) [address] [place] [address] Hemoglobin (Bld) [Mass/Vol] 13.5 g/dL Normal 12.0-15.0 [facility] Comment on above: Performed By: #### L [id number] #### [facility] ([facility]) [address] [place] [address] MCH (RBC) [Entitic mass] 29.0 pg Normal 27.0-33.0 [facility] Comment on above: Performed By: #### L [id number] #### [facility] ([facility]) [address] [place] [address] MCV (RBC) [Entitic vol] 87.6 fL Normal 82.0-98.0 [facility] Comment on above: Performed By: #### L [id number] #### [facility] ([facility]) [address] [place] [address] PLATELETS (10*3/UL) IN BLOOD AUTOMATED COUNT 179 10*3/uL Normal 150-400 [facility] Comment on above: Performed By: #### L [id number] #### [facility] ([facility]) [address] [place] [address] RBC (Bld) [#/Vol] 4.66 10*6/uL Normal 3.80-5.00 [facility] Comment on above: Performed By: #### L [id number] #### [facility] [address] [place] [address] WBC (Bld) [#/Vol] 7.11 10*3/uL Normal 4.00-10.60 [facility] Comment on above: Performed By: #### L [id number] #### [facility] ([facility]) [address] [place] [address] CONSULTon 03-26-2024 CONSULT -- Attestation signed by Anderson Stiles MD at [...] elevated troponin the patient initially went to [facility] due to symptoms of abdominal pain, [...] Value Ventricular Rate 67 Atrial Rate 67 DC Interval 142 QRS DURATION 70 QT Interval 448 QTC CALCULATION(BAZETT) 473 P [place] 83 R-[place] -5 T Wave [place] -22 Impression Normal sinus rhythm Possible Inferior infarct (cited on or before 25-MAR-2024) Abnormal ECG When compared with ECG of 25-MAR-2024 23:28, (unconfirmed) Nonspecific T wave abnormality has replaced inverted T waves in Inferior lead Nonspecific T wave abnormality has replaced inverted T waves in Lateral Lab Results Component Value Date TROPONINI 3.34 () 03/26/2024 No echocardiogram results found for the [...] cardiology will follow along Sudhir Gayle MD Photo Mask Processor - PGY4 [facility] Normal [facility] HEMOGLOBIN A1Con 03-26-2024 Glucose [Mass/Vol] 123 mg/dL Normal [facility] Comment on above: Performed By: #### L [id number] #### [facility] (BEAKER) [address] [place] [address] HbA1c (Bld) [Mass fraction] 5.9 % Normal 4.0-6.0 [facility] Comment on above: Performed By: #### L [id number] #### [facility] (BEAKER) [address] [place] [address] HPon 03-26-2024 HP -- Attestation signed by Anderson Stiles MD at [...] elevated troponin the patient initially went to [facility] due to symptoms of abdominal pain, [...] Value Ventricular Rate 67 Atrial Rate 67 DC Interval 142 QRS DURATION 70 QT Interval 448 QTC CALCULATION(BAZETT) 473 P [place] 83 R-[place] -5 T Wave [place] -22 Impression Normal sinus rhythm Possible Inferior [...] cardiology will follow along Sudhir Gayle MD Photo Mask Processor - PGY4 [facility] Normal [facility] LIPID PANELon 03-26-2024 CHOL/HDL 4.0 mg/dL Normal [facility] Comment on above: Performed By: #### L [id number] ####[facility] ([facility])[address] [facility] [place] [address] Cholesterol [Mass/Vol] 135 mg/dL Normal 120-200 [facility] Comment on above: Performed By: #### L [id number] ####[facility] ([facility])[address] [facility] [place] [address] Magnesium [Mass/Vol] 55 mg/dL Normal 40-149 [facility] Comment on above: Result Comment: TRIG LYCERIDE REFERENCE RANGE: 20 YEARS AND OLDER CARDIOVASCULAR RISK LESS THAN 150 mg/dL LOW RISK 150 TO 199 mg/dL BORDERLINE RISK 200 mg/dL AND GREATER HIGH RISK Performed By: #### L [id number] ####[facility] ([facility])[address] [place] [address] Magnesium [Mass/Vol] 90 mg/dL Normal 0-160 [facility] Comment on above: Performed By: #### L [id number] ####[facility] ([facility])[address] [facility] [place] [address] Magnesium [Mass/Vol] 34 mg/dL Normal 23-92 [facility] Comment on above: Performed By: #### L [id number] ####[facility] ([facility])[address] [place] [address] NON HDL CHOL. (LDL+VLDL) 101 Normal [facility] Comment on above: Performed By: #### L [id number] ####[facility] ([facility])[address] [place] [address] TOTAL VLDL-C 11 mg/dL Normal 0-40 [facility] Comment on above: Performed By: #### L [id number] ####[facility] ([facility])[address] [place] [address] TROPONIN Ion 03-26-2024 Troponin I.cardiac [Mass/Vol] 2.44 ng/mL Critically high 0.00-0.04 [facility] Comment on above: Result Comment: M-DC EVIOUS CRITICAL RESULT Previous result verified on 03/26/202451 on specimen/case 24H- called with component Troponin I for procedure Troponin I with value 2.77 ng/mL. Performed By: #### L [id number] #### [facility] ([facility]) [address] [place] [address] Troponin I.cardiac [Mass/Vol] 2.07 ng/mL Critically high 0.00-0.04 [facility] Comment on above: Result Comment: M-DC EVIOUS CRITICAL RESULT Previous result verified on 03/26/202451 on specimen/case 24H- called with component Troponin I for procedure Troponin I with value 2.77 ng/mL. Performed By: #### L [id number] ####[facility] ([facility])[address] [place] [address] Troponin I.cardiac [Mass/Vol] 3.34 ng/mL Critically high 0.00-0.04 [facility] Comment on above: Result Comment: M-DC EVIOUS CRITICAL RESULT Previous result verified on 03/26/202451 on specimen/case 24H- called with component Troponin I for procedure Troponin I with value 2.77 ng/mL. Performed By: #### L [id number] #### [facility] ([facility]) [address] [place] [address] URINALYSISon 03-26-2024 BILIRUBIN, TOTAL PRESENCE IN URINE Negative Normal Negative [facility] Comment on above: Performed By: #### L [id number] #### [facility] ([facility]) [address] [place] [address] Clarity (U) Slightly Cloudy Abnormal Clear [facility] Comment on above: Performed By: #### L [id number] #### [facility] ([facility]) [address] [place] [address] Color (U) Yellow Normal Yellow [facility] Comment on above: Performed By: #### L [id number] #### [facility] ([facility]) [address] [place] [address] Glucose (U) [Mass/Vol] Negative Normal Negative [facility] Comment on above: Performed By: #### L [id number] #### [facility] ([facility]) [address] [place] [address] HEMOGLOBIN PRESENCE IN URINE Negative Normal Negative [facility] Comment on above: Performed By: #### L [id number] #### [facility] ([facility]) [address] [place] [address] Ketones Ql (U) 20 mg/dL Abnormal Negative [facility] Comment on above: Performed By: #### L [id number] #### [facility] ([facility]) [address] [place] [address] LEUKOCYTE ESTERASE PRESENCE IN URINE BY TEST STRIP Large Abnormal Negative [facility] Comment on above: Performed By: #### L [id number] #### [facility] ([facility]) [address] [place] [address] NITRITE PRESENCE IN URINE Negative Normal Negative [facility] Comment on above: Performed By: #### L [id number] #### [facility] ([facility]) [address] [place] [address] pH (U) 5.0 [pH] Normal 5.0-8.0 [facility] Comment on above: Performed By: #### L [id number] #### [facility] ([facility]) [address] [place] [address] Protein (U) [Mass/Vol] Negative Normal Negative [facility] Comment on above: Performed By: #### L [id number] #### [facility] ([facility]) [address] [place] [address] Specific gravity (U) [Rel density] 1.025 High 1.015-1.020 [facility] Comment on above: Performed By: #### L [id number] #### [facility] ([facility]) [address] [place] [address] URINALYSIS MICROSCOPICon CASTS IN URINE Normal [facility] Comment on above: Performed By: #### L [id number] #### [facility] ([facility]) [address] [place] [address] CRYSTALS IN URINE Normal [facility] Comment on above: Performed By: #### L [id number] #### [facility] ([facility]) [address] [place] [address] MUCUS (#/HPF) IN URINE SEDIMENT Moderate Abnormal None Seen, Occasional, Few [facility] Comment on above: Performed By: #### L [id number] #### [facility] ([facility]) [address] [place] [address] RBC (#/HPF) IN URINE SEDIMENT 0-2 Abnormal None Seen [facility] Comment on above: Performed By: #### L [id number] #### [facility] ([facility]) [address] [place] [address] SQUAMOUS EPITHELIAL CELLS (#/HPF) IN URINE SEDIMENT Many Abnormal None Seen, Occasional [facility] Comment on above: Performed By: #### L [id number] #### [facility] [address] [place] [address] WBC (LEUKOCYTE) (#/HPF) IN URINE SEDIMENT 21-50 Abnormal None Seen [facility] Comment on above: Performed By: #### L [id number] #### [facility] ([facility]) [address] [place] [address] APTTon 03-25-2024 ACTIVATED PARTIAL THROMBOPLASTIN TIME IN PPP BY COAGULATION ASSAY 24.4 Seconds Low 25.0-35.0 [facility] Comment on above: Order Comment: Basel ine aPTT before initiating heparin infusion. Result Comment: Clin ical significance of the APTT is questionable in the presence of heparin. Performed By: #### L [id number] ####[facility] ([facility])[address] [place] [address] B-TYPE NATRIURETIC PEPTIDEon 03-25-2024 Natriuretic peptide B (Bld) [Mass/Vol] 267 pg/mL High 0-100 [facility] Comment on above: Performed By: #### L [id number] ####[facility] ([facility])[address] [place] [address] BASIC METABOLIC PANELon 03-07 Anion gap [Moles/Vol] 12 mmol/L Normal 7-20 [facility] Comment on above: Performed By: #### L [id number] ####[facility] ([facility])[address] [place] [address] Calcium [Mass/Vol] 8.6 mg/dL Normal 8.6-10.3 [facility] Comment on above: Performed By: #### L [id number] ####[facility] ([facility])[address] [place] [address] Chloride [Moles/Vol] 107 mmol/L Normal 98-107 [facility] Comment on above: Performed By: #### L [id number] ####[facility] ([facility])[address] [place] [address] CO2 [Moles/Vol] 24 mmol/L Normal 21-31 [facility] Comment on above: Performed By: #### L [id number] ####[facility] ([facility])[address] [place] [address] Creatinine [Mass/Vol] 0.68 mg/dL Normal 0.60-1.20 [facility] Comment on above: Performed By: #### L [id number] ####[facility] ([facility])[address] [place] [address] GLOMERULAR FILTRATION RATE ML/MIN/1.73 SQ M.PREDICTED 94.8 mL/min/1.73m*2 Normal >60.0 [facility] Comment on above: Result Comment: The [facility]???s estimated glomerular filtration rate (eGFR) will no [...] L [id number] ####[facility] ([facility])[address] [place] [address] Glucose [Mass/Vol] 105 mg/dL High 70-100 [facility] Comment on above: Performed By: #### L [id number] ####[facility] ([facility])[address] [place] [address] Potassium [Moles/Vol] 3.8 mmol/L Normal 3.5-5.1 [facility] Comment on above: Performed By: #### L [id number] ####[facility] ([facility])[address] [place] [address] Sodium [Moles/Vol] 139 mmol/L Normal 136-145 [facility] Comment on above: Performed By: #### L [id number] ####[facility] ([facility])[address] [place] [address] Urea nitrogen [Mass/Vol] 12 mg/dL Normal 7-25 [facility] Comment on above: Performed By: #### L [id number] ####[facility] [place] [address] UREA NITROGEN/CREATININE (MASS RATIO) IN SER/PLAS 17.6 Normal [facility] Comment on above: Performed By: #### L [id number] ####[facility] [place] [address] CBC WITH AUTO DIFFERENTIALon 03-25-2024 Basophils (Bld) [#/Vol] 0.05 10*3/uL Normal 0.00-0.20 [facility] Comment on above: Performed By: #### L [id number] ####[facility] ([facility])[address] [place] [address] Basophils/100 WBC (Bld) 0.6 % Normal 0.0-1.0 [facility] Comment on above: Performed By: #### L [id number] ####[facility] ([facility])[address] [place] [address] Eosinophils (Bld) [#/Vol] 0.15 10*3/uL Normal 0.00-0.50 [facility] Comment on above: Performed By: #### L [id number] ####[facility] ([facility])[address] [place] [address] Eosinophils/100 WBC (Bld) 1.8 % Normal 0.0-6.0 [facility] Comment on above: Performed By: #### L [id number] ####[facility] ([facility])[address] [place] [address] Erythrocyte distribution width (RBC) [Ratio] 13.8 % Normal 11.5-15.0 [facility] Comment on above: Performed By: #### L [id number] ####[facility] [place])[address] [place] [address] ERYTHROCYTE MEAN CORPUSCULAR HEMOGLOBIN CONCENTRATION (G/DL) BY AUTOMATED 31.8 g/dL Low 32.0-35.0 [facility] Comment on above: Performed By: #### L [id number] ####[facility] (BEAKER)[address] [place] [address] Hematocrit (Bld) [Volume fraction] 44.6 % Normal 36.0-48.0 [facility] Comment on above: Performed By: #### L [id number] ####[facility] (BEAKER)[address] [place] [address] Hemoglobin (Bld) [Mass/Vol] 14.2 g/dL Normal 12.0-15.0 [facility] Comment on above: Performed By: #### L [id number] ####[facility] (BEAKER)[address] [place] [address] Immature granulocytes (Bld) [#/Vol] 0.03 10*3/uL Normal 0.00-0.20 [facility] Comment on above: Performed By: #### L [id number] ####[facility] (BEAKER)[address] [place] [address] Immature granulocytes/100 WBC (Bld) 0.4 % Normal 0.0-1.0 [facility] Comment on above: Performed By: #### L [id number] ####[facility] (BEAKER)[address] [place] [address] Lymphocytes (Bld) [#/Vol] 1.52 10*3/uL Normal 1.20-4.00 [facility] Comment on above: Performed By: #### L [id number] ####[facility] (BEAKER)[address] [place] [address] Lymphocytes/100 WBC (Bld) 18.4 % Low 20.0-45.0 [facility] Comment on above: Performed By: #### L [id number] ####[facility] (BEAKER)[address] [place] [address] MCH (RBC) [Entitic mass] 29.2 pg Normal 27.0-33.0 [facility] Comment on above: Performed By: #### L [id number] ####[facility] (BEAKER)[address] [place] [address] MCV (RBC) [Entitic vol] 91.8 fL Normal 82.0-98.0 [facility] Comment on above: Performed By: #### L [id number] ####[facility] (BEAKER)[address] [place] [address] Monocytes (Bld) [#/Vol] 0.58 10*3/uL Normal 0.10-1.00 [facility] Comment on above: Performed By: #### L [id number] ####[facility] [place] [address] Monocytes/100 WBC (Bld) 7.0 % Normal 5.0-12.0 [facility] Comment on above: Performed By: #### L [id number] ####[facility] (BEAKER)[address] [place] [address] Neutrophils (Bld) [#/Vol] 5.91 10*3/uL Normal 1.60-7.60 [facility] Comment on above: Performed By: #### L [id number] ####[facility] (BEAKER)[address] [place] [address] Neutrophils/100 WBC (Bld) 71.8 % Normal 40.0-72.0 [facility] Comment on above: Performed By: #### L [id number] ####[facility] (BEAKER)[address] [place] [address] NRBC (PER 100 WBCS) BY AUTOMATED COUNT 0.0 % Normal 0 [facility] Comment on above: Performed By: #### L [id number] ####[facility] (BEAKER)[address] [place] [address] PLATELETS (10*3/UL) IN BLOOD AUTOMATED COUNT 201 10*3/uL Normal 150-400 [facility] Comment on above: Performed By: #### L [id number] ####[facility] (BEAKER)[address] [place] [address] RBC (Bld) [#/Vol] 4.86 10*6/uL Normal 3.80-5.00 [facility] Comment on above: Performed By: #### L [id number] ####[facility] ([facility])[address] [place] [address] WBC (Bld) [#/Vol] 8.24 10*3/uL Normal 4.00-10.60 [facility] Comment on above: Performed By: #### L [id number] ####[facility] ([facility])[address] [place] [address] HEPATIC FUNCTION PANELon Albumin [Mass/Vol] 3.8 g/dL Normal 3.5-5.7 [facility] Comment on above: Performed By: #### L [id number] #### [facility] ([facility]) [address] [place] [address] ALP [Catalytic activity/Vol] 35 U/L Normal 34-104 [facility] Comment on above: Performed By: #### L [id number] #### [facility] ([facility]) [address] [place] [address] ALT [Catalytic activity/Vol] 21 U/L Normal 7-52 [facility] Comment on above: Performed By: #### L [id number] #### [facility] ([facility]) [address] [place] [address] AST [Catalytic activity/Vol] 32 U/L Normal 13-39 [facility] Comment on above: Performed By: #### L [id number] #### [facility] ([facility]) [address] [place] [address] Bilirubin [Mass/Vol] 0.8 mg/dL Normal 0.3-1.0 [facility] Comment on above: Performed By: #### L [id number] #### [facility] ([facility]) [address] [place] [address] Magnesium [Mass/Vol] 0.1 mg/dL Normal 0-0.2 [facility] Comment on above: Performed By: #### L [id number] #### [facility] ([facility]) [address] [place] [address] Protein [Mass/Vol] 6.1 g/dL Normal 6.0-8.3 [facility] Comment on above: Performed By: #### L [id number] #### [facility] ([facility]) [address] [place] [address] MAGNESIUMon 03-25-2024 Magnesium [Mass/Vol] 2.0 mg/dL Normal 1.9-2.7 [facility] Comment on above: Performed By: #### L [id number] ####[facility] ([facility])[address] [facility] [place] [address] PHOSPHORUSon 03-25-2024 Magnesium [Mass/Vol] 3.1 mg/dL Normal 2.5-5.0 [facility] Comment on above: Performed By: #### L [id number] ####[facility] ([facility])[address] [place] [address] PROTIME-INRon 03-25-2024 INR IN PPP BY COAGULATION ASSAY 1.11 High 0.90-1.10 [facility] Comment on above: Result Comment: ACCC P [...] L [id number] ####[facility] ([facility])[address] [place] [address] PROTHROMBIN TIME (PT) IN PPP BY COAGULATION ASSAY 14.3 Seconds Normal 12.3-14.8 [facility] Comment on above: Performed By: #### L [id number] ####[facility] ([facility])[address] [place] [address] TROPONIN Ion 03-25-2024 Troponin I.cardiac [Mass/Vol] 2.77 ng/mL Critically high 0.00-0.04 [facility] Comment on above: Result Comment: M-TR OPONIN INITIAL CRITICAL HIGH; RESPUN AND RETESTED Performed By: #### L [id number] #### [facility] ([facility]) [address] [place] [address] Family Medicine Office/Clini c Noteon 03-17-2024 Family [...] Cerumen impaction (H61.20: Impacted cerumen, unspecified ear) DIMITRI ear canals are impacted with was. pt [...] vac - Not Given Patient Refuses Normal [facility] Comment on above: Result Comment: Elec tronically Signed By: Millie Florentino\.br\Date and Time Signed: 03/17/24 15:22 EDT Cons[place] 02-09-2024 Consent [id number]#1.0 0TIFF Normal [facility] Ambulatory Visit Summaryon 0 02-08-2024 Ambulatory Visit Summary JESS BACON :1955 Visit Date:02/08/2024 Ambulatory Visit Instructions Your [...] Follow-Up Appointments 2023 1:00 PM EDT Where: [facility] [place] Normal [facility] Family Medicine Office/Clini c Noteon 02-08-2024 Family Medicine Office/Clinic Note HPI Staff Jess is a 68 year old female presenting for Pt went to urgent care in [place] 01/31 started on Amoxcillin Onset: 9 days [...] mucosa moist, no pharyngeal erythema or exudate, DIMITRI TM full of clear fluid Cardiovascular: regular rate and rhythm, normal peripheral perfusion Respiratory: Lungs CTA, respirations non labored Extremities: no deformity, no trauma Neurological: oriented x 4, LOC appropriate for age, CN II-XII intact, motor strength equal & normal bilaterally, speech normal Assessment/Plan 1. Fluid level behind tympanic membrane of both ears (H65.93: Unspecified nonsuppurative otitis media, bilateral) DIMITRI TM full of clear fluid, will give [...] - Not Given Patient Refuses SARS-CoV-2 mRNA (toflavianameran 5y-11y) vac - Not Given Patient Refuses Normal [facility] Comment on above: Result Comment: Elec tronically Signed By: Millie Florentino\.br\Date and Time Signed: 02/08/24 15:31 EDT Consultation Noteon 02-01-20 Consultation Note [id number]#1.00 TIFF [facility] Formson 02-01-2024 Forms [id number]#1.0 0TIFF [facility] Physician Referralon 024 Physician Referral [id number]#1.0 0TIFF [facility] Ambulatory Visit Summaryon 0 12-17-2023 Ambulatory Visit Summary ARLEEN, JESS Selby :1955 Visit Date:12/17/2023 Ambulatory Visit Instructions Your [...] Appointments 2023 1:00 PM EDT Where: [facility] [place] Normal [facility] Family Medicine Office/Clini c Noteon 12-17-2023 Family Medicine [...] does not want to go back to [place]. will refer to Dr. Dickerson in [place]. RTC 3 months. note provided to work no more than 8 hours per day and no vibrating tools Ordered: [facility] External Ambulatory Referral Body mass index [BMI] [...] vac - Not Given Patient Refuses Normal [facility] Comment on above: Result Comment: Elec tronically Signed By: Millie Florentino\.br\Date and Time Signed: 12/17/23 15:12 EDT Provider Letteron 12-17-2023 Provider Letter December 17, [address] [place] [id number] : 1955 To Whom It May Concern, Jess may work no more than 8 hours per day. Please continue to not use vibrating hand tools. This will continue through December, January, and February 2024. If you have any questions please do not hesitate to contact my office. Date of Illness: From: December 2023 To: February 2024 Sincerely, JAH Jon [address] [address] [facility] Consultation Noteon 11-10-19 Consultation Note [id number]#1.0 0TIFF Lisy [facility] Family Medicine Office/Clini c Noteon 10-31-2023 Family Medicine Office/Clinic Note Chief Complaint diagnosed with bronchitis 10/25- not feeling better HPI Staff 67 year old female presents with bronchitis that is worsening, pain in ribs when coughing was seen at [facility] 10/25 and was diagnosed with bronchitis was given steroids- has 2 more days but does not feel any better History of Present Illness Reviewed and agree with above documented HPI by biomedical field service engineer. Portions of this record may have been created with voice recognition artificial intelligence software, specifically Superbly, Brandlive and or SpeedDate. Substitutions may have occurred due to the inherent limitations of voice recognition and artificial intelligence software. Patient is a 67-year-old female who presents to convenient care, for sinus congestion, sore throat, and a nonproductive cough. Patient states symptom has been going on for over 2-1/2 weeks, states this past Wednesday she was seen at an urgent care in [facility], states she was diagnosed with bronchitis [...] slurred speech, difficulty swallowing is noted. Head: Normocephalic/atraumat ic. Bilateral frontal sinus tenderness and pressure with [...] at this time. 67-year-old female presents to [facility], for acute frontal sinusitis and acute bronchitis, history of sinus infections and bronchitis, close to 3 weeks ago, has been taking jmmg-qul-vgvoklp medication without any relief, did appear ill but not septic, no respiratory distress or difficulty swallowing is noted. He was given a prescription of Zithromax, prefer no prescription for cough or prednisone at this time. Patient was instructed take bmxa-sme-ucmewun ibuprofen Tylenol as needed for body aches, fevers, headaches. Drink plenty water stay hydrated. Given a work excuse note. Follow-up with primary care provider. 1. Acute frontal sinusitis (J01.10: Acute frontal sinusitis, unspecified) See above 2. Acute bronchitis (J20.9: Acute bronchitis, unspecified) See above Follow-up With When Contact Information Carlos BARRON, Millie Gallagher, FAM, MED Additional Instructions: Patient Education Acute Bronchitis, Adult, Wzpd-dc-Czta Sinus Infection, Adult, Kjsp-id-Ifef Problem List/Past Medical History Ongoing Acute bronchitis Acute frontal sinusitis Anxiety disorder Breast cancer screening by mammogram Dupuytrens contracture Ingrown right big toenail Lower extremity neuropathy Onychomycosis Osteoarthritis of lumbosacral spine Radiculopathy Right elbow pain Sore t (more content not included)... Normal [facility] Comment on above: Result Comment: Elec tronically [...] ? Medicines that treat allergies (antihistamines). ? Ieod-ios-heujptb pain relievers. ? If caused by bacteria, your doctor may wait to see if you will get better without treatment. You may be given antibiotic medicine if you have: ? A very bad infection. ? A weak body defense system. ? If caused by growths in the nose, surgery may be needed. Follow these instructions at home: Medicines ? 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 ? Do not smoke. Avoid being around [...] follow-up visits (more content not included)... Normal [facility] Patient Letter FTon 2023 Patient Letter [facility] [address] [place] [address] October 29, 20[address]ESS BACON [address] [place] [id number] : 1955 Please excuse JESS BACON from work . Date and/or Time of Absence: From: 10/29/23 May return to work on: 11/01/23 Restrictions: None Comments: Please excuse due to an acute illness. Provider Signature: Phillip Nunez PA-C [address] [place] [address] [place] [address] Normal [facility] Ambulatory Visit Summaryon 0 09-30-2023 Ambulatory Visit Summary JESS BACON :1955 Visit Date:09/30/2023 Ambulatory Visit Instructions Your Diagnosis Trigger ring finger of right hand Ingrown right big toenail BMI 22.0-22.9, adult Non-smoker Your Care Team Attending Physician - Millie Florentino Primary Care Physician - Millie Florentino This Is Your Medications List [facility] [place] [place] Prescription (Compression stockings) cholecalciferol (Vitamin D3 2000 [...] Follow-Up Appointments 2023 1:00 PM EDT Where: [facility] [place] Normal [facility] Family Medicine Office/Clini c Noteon 09-30-2023 Family Medicine Office/Clinic Note HPI Staff Jess is a 67 year old female presenting for 3 month follow up Pain characteristics: Pain location: Right elbow with Radiculopathy ([facility] 06/30/23 Medrol dose pack ordered) Intensity: [...] Daily, # 30 tab(s), Refills(s) 0, Pharmacy: [facility], 158, cm, 09/30/23 11:26:00 EST, Height/Length Dosing, 55.1, kg, 09/30/23 11:26:00 EST, Weight Dosing methylPREDNISolone, = 1 packet(s), Oral, As Directed, as directed on package labeling, X 6 day(s), # 21 tab(s), Refills(s) 0, Pharmacy: [facility], 158, cm, 09/30/23 11:26:00 EST, Height/Length Dosing, 55.1, kg, 09/30/23 11:26:00 EST, Weight Dosing 2. Ingrown right big toenail (L60.0: Ingrowing nail) right big toe nail ingrown. will refer to Dr. Schultz Ordered: [facility] External Ambulatory Referral 3. BMI 22.0-22.9, adult (Z68.22: Body mass index [BMI] 22.0-22.9, adult) BMI education complete Ordered: meloxicam, 7.5 mg = 1 tab(s), Oral, Daily, # 30 tab(s), Refills(s) 0, Pharmacy: [facility], 158, cm, 09/30/23 11:26:00 EST, Height/Length Dosing, 55.1, kg, 09/30/23 11:26:00 EST, Weight Dosing methylPREDNISolone, = 1 packet(s), Oral, As Directed, as directed on package labeling, X 6 day(s), # 21 tab(s), Refills(s) 0, Pharmacy: [facility], 158, cm, 09/30/23 11:26:00 EST, Height/Length Dosing, 55.1, kg, 09/30/23 11:26:00 EST, Weight Dosing 4. Non-smoker (Z78.9: Other specified health status) continue not smoking Ordered: meloxicam, 7.5 mg = 1 tab(s), Oral, Daily, # 30 tab(s), Refills(s) 0, Pharmacy: [facility] 1429, 158, cm, 09/30/23 11:26:00 EST, Height/Length Dosing, 55.1, kg, 09/30/23 11:26:00 EST, Weight Dosing methylPREDNISolone, = 1 packet(s), Oral, As Directed, as directed on package labeling, X 6 day(s), # 21 tab(s), Refills(s) 0, Pharmacy: [facility] 1429, 158, cm, 09/30/23 11:26:00 EST, Height/Length Dosing, 55.1, kg, 09/30/23 11:26:00 EST, Weight Dosing Orders: escitalopram, 10 mg = 1 tab(s), Oral, Daily, X 90 day(s), # 90 tab(s), Refills(s) 3, Pharmacy: [id number], 157, cm, 04/23/23 13:50:00 EDT, Height/Length Dosing, [...] 3 refills, Not (more content not included)... [facility] Comment on above: Result Comment: Elec tronically Signed By: Carlos BARRON, Millie Gallagher\.br\Date and Time Signed: 09/30/23 11:46 EST Physician Referralon 024 Physician Referral [id number]#[id number] 0TIFF [facility] Provider Letteron 09-30-2023 Provider Letter September 30, 2023 JESS BACON [address] [place] [phone] : 1955 To Whom It May Concern, [...] Restrictions: _ See Above Comments: _ Sincerely, Family Medicine [address] [address] [facility] Vital Signs Date Time Vital Sign Value Performing Clinician Facility 07-19-2024 15:52-0500 Blood Pressure Location Addy VELA [facility] 07-19-2024 15:52-0500 Diastolic blood pressure 58 mm[Hg] Addy NAYAKL [facility] 07-19-2024 15:52-0500 Heart rate 72 /min Addy NAYAKL [facility] 07-19-2024 15:52-0500 Respiratory rate 16 /min Addy NAYAKL [facility] 07-19-2024 15:52-0500 Systolic blood pressure 122 mm[Hg] Addy NILL [facility] 05-27-2024 14:05-0400 Body height 156.21 cm MD Luisito Roth Work Phone: [facility] 05-27-2024 14:05-0400 Body mass index (BMI) [Ratio] 21.4 kg/m2 MD Luisito Roth Work Phone: [facility] 05-27-2024 14:05-0400 Body temperature 98.2 [degF] MD Luisito Roth Work Phone: [facility] 05-27-2024 14:05-0400 Body weight 52.16 kg MD Luisito Roth Work Phone: [facility] 05-27-2024 14:05-0400 Diastolic blood pressure 69 mm[Hg] MD Luisito Roth Work Phone: [facility] 05-27-2024 14:05-0400 Heart rate 56 /min MD Luisito Roth Work Phone: [facility] 05-27-2024 14:05-0400 SaO2% (BldA) [Mass fraction] 98 % MD Luisito Roth Work Phone: [facility] 05-27-2024 14:05-0400 Systolic blood pressure 128 mm[Hg] MD Luisito Roth Work Phone: [facility] 10-29-2023 13:26-0500 Blood Pressure Location [place] MAYRA [facility] 10-29-2023 13:26-0500 Body temperature 97.88 [degF] [place] [facility] 10-29-2023 13:26-0500 Diastolic blood pressure 80 mm[Hg] [place] [facility] 10-29-2023 13:26-0500 Heart rate 77 /min [facility] 10-29-2023 13:26-0500 SaO2% (BldA) [Mass fraction] 96 % [facility] 10-29-2023 13:26-0500 Systolic blood pressure 120 mm[Hg] [facility] Encounters Encounter Date Encounter Type Care Provider Facility Start: 07-19-2024 End: 07-19-2024 ambulatory Addy VELA Facility:[facility] Start: 07-19-2024 End: 07-19-2024 Patient encounter procedure Addy VELA [facility] [place] Start: 06-06-2024 End: 06-06-2024 ambulatory Millie L Carlos Facility:[facility] Start: 06-01-2024 End: 06-01-2024 ambulatory Millie L Carlos Facility:[facility] Start: 05-29-2024 End: 05-29-2024 ambulatory Millie L Carlos Facility:[facility] [place] Start: 05-27-2024 End: 05-27-2024 ambulatory MD Luisito Roth Work Phone: [facility] Work Phone: Start: 05-27-2024 End: 05-27-2024 Patient encounter procedure MD Luisito Roth Work Phone: [facility] Work Phone: Start: 05-12-2024 End: 05-12-2024 ambulatory Millie L Carlos Facility: [facility] [place] Start: 04-21-2024 End: 04-21-2024 [facility] Start: 04-19-2024 End: 04-19-2024 ambulatory Millie L Carlos Facility: [facility] [place] Start: 04-12-2024 End: 04-12-2024 ambulatory Millie L Carlos Facility: [facility] Start: 04-06-2024 End: 04-06-2024 ambulatory Luisito Roth Facility:[facility] [place] Start: 03-31-2024 End: 05-01-2024 ambulatory Luisito Roth Facility:[id number] Start: 03-29-2024 ambulatory Millie L Carlos Facility: [facility] Start: 03-28-2024 Evaluation and management of inpatient [facility] Start: 03-27-2024 Evaluation and management of inpatient MARY Sykes [facility] Start: 03-26-2024 Evaluation and management of inpatient [facility] Start: 03-25-2024 Evaluation and management of inpatient MARY Sykes [facility] Start: 03-25-2024 End: 03-30-2024 Evaluation and management of inpatient SUDHIR CHRISTINE [facility] Start: 03-17-2024 End: 03-17-2024 ambulatory Millie L Carlos Facility: [facility] Start: 02-08-2024 End: 02-08-2024 ambulatory Millie L Carlos Facility: [facility] Start: 01-20-2024 End: 01-20-2024 ambulatory LARISSA SUTTON Not Available Start: 12-31-2023 End: 12-31-2023 ambulatory LAUREANO AMARAL Not Available Start: 12-17-2023 End: 12-17-2023 ambulatory Millie L Carlos Facility:[facility] Start: 10-29-2023 End: 10-29-2023 ambulatory PHILLIP LLANESTIZ Facility:[facility] Start: 10-29-2023 End: 10-29-2023 Patient encounter procedure PHILLIP NUNEZ [facility] Start: 09-30-2023 End: 09-30-2023 ambulatory Millie Gonzalez Facility:[facility] Start: 07-17-2022 End: 07-17-[address] GINA CULVER Facility:[facility] Procedures Date Procedure Procedure Detail Performing Clinician Start: 05-27-2024 X-ray of lumbar spin e, four or more views MD Luisito Roth Work Phone: Start: 04-21-2024 Follow-up visit Follow-up CRIS POLO Start: 12-05-2017 Colonoscopy Addy ZAVALA Abdominal hysterectomy Fredo el NILL Appendectomy PHILLIP NUNEZ Cardiac catheterization Rc ael NILL Cholecystectomy PHILLIP OR TIZ Colonoscopy PHILLIP NUNEZ Comment on above: 01/24 normal repeat 5 years no polyps Dilation and curetta ge of uterus PHILLIP NUNEZ Partial hysterectomy VIMAL CO NUNEZ Release of trigger finger Mi chael NILL Release of trigger thumb Charlie hael NILL Plan of Treatment Date Care Activity Detail Author Start: 06-04-2025 ambulatory Ambulatory Facility:[facility] Patient Education Low back pain in adults [facility] Work Phone: Immunizations Immunization Date Immunization Notes Care Provider Fa cility NEGATED: Highlighted row has not occurred!06-01-2024 influenza virus vaccine, unspecified formulation Addy VELA [facility] [facility] NEGATED: Highlighted row has not occurred!11-30-2022 influenza virus vaccine, unspecified formulation PHILLIP NUNEZ [facility] NEGATED: Highlighted row has not occurred!11-30-2022 SARS-CoV-2 mRNA (tozinameran 5y-11y) vaccine PHILLIP NUNEZ [facility] Payers Date Payer Category Payer Self-pay [id number] 2024 Unknown [id number] 2023 Unknown [id number] 1959 Unknown [id number] 1955 Unknown [id number] 2.16.84 0.1.066305.3.579.2.593 1955 Unknown [id number] 2.16.84 0.1.511489.3.579.2.1259 1955 Unknown [id number] 2.16.84 0.1.196681.3.579.2.1259 1955 Unknown [id number] 2.16.84 0.1.730918.3.579.2.1259 1955 Unknown [id number] 2.16.84 0.1.386182.3.579.2.1259 1955 Unknown [id number] 2.16.8 40.1.288888.3.579.2.727 1955 Unknown [id number] 2.16.8 40.1.524914.3.579.2.727 1955 Unknown [id number] 2.16.8 40.1.686362.3.579.2.727 1955 Unknown [id number] 2.16.8 40.1.449954.3.579.2.727 1955 Unknown [id number] 2.16.8 40.1.037084.3.579.2.727 1955 Unknown [id number] 2.16.8 40.1.411922.3.579.2.72 1955 Unknown [id number] 2.16.8 40.1.515127.3.579.2.72 1955 Unknown [id number] 2.16.8 40.1.232535.3.579.2.72 1955 Unknown [id number] 2.16.8 40.1.710763.3.579.2. 1955 Unknown [id number] 2.16.8 40.1.624441.3.579.2.727 1955 Unknown [id number] 2.16.8 40.1.659526.3.579.2.72 1955 Unknown [id number] 2.16.8 40.1.780676.3.579.2.727 1955 Unknown [id number] 2.16.8 40.1.689241.3.579.2.72 1955 Unknown [id number] 2.16.8 40.1.882014.3.579.2.727 1955 Unknown [id number] 2.16.8 40.1.222989.3.579.2.727 1955 Unknown [id number] 2.16.8 40.1.969543.3.579.2.727 Medicare Medicare [id number] 17c [id number] Unknown [id number] 2.16.8 40.1.587751.3.579.2.531 Social History Date Type Detail Facility Start: 10-29-2023 End: 07-19-2024 Tobacco smoking status Never smoked tobacco (finding) [facility] Comment on above: denies use. [facility] status [facility] Comment on above: denies use. Sex Assigned At Female [facility] Start: 1955 Sex Assigned At Female [facility] Functional Status Date Assessment Result Facility 07-19-2024 Functional Status N/A [facility] 10-29-2023 Functional Status N/A [facility] Clinical Notes 03-25-2024 to 07-19-2024 Radiology Note Date & Type Note Facility 07-19-2024 Note General Surgery Offi ce/Clinic Note Chief Complaint consultation for colonoscopy HPI Staff 68 year old female presents on consultation from Millie Gonzalez for surveillance colonoscopy. Last colonoscopy completed 12/2017 with tubular adenoma. Denies abdominal or rectal pain. No rectal bleeding or change in bowel habits. Denies nausea or vomiting. No unexplained weight loss. No known family history of colon cancer. History of Present Illness 68 yo female with h/o arthritis, radiculopathy, anxiety, spondylosis, referred for surveillance colonoscopy; last colonoscopy 2017 with removal of small tubular adenoma from transverse colon; denies change in bms or blood in stools, no abd complaints; abdominal operations significant for cholecystectomy, hysterectomy and appendectomy; patient on baby asa and Meloxicam daily, no tobacco use; no fmhx of GI malignancy or IBD. Review of Systems PHQ Score Initial Depression Screen Score: 0 SCORE ROS - Provider Constitutional: no fever, no sweats, no weight loss. Eyes: yes glasses, no blurred vision, no visual loss. ENMT: no dentures, no hoarseness, no swallowing difficulties, no hearing loss, no ear infection(s), no nose bleeds. Cardiovascular: normal blood pressure, no chest pain, regular heartbeat, no heart murmur. Respiratory: no shortness of breath, no cough, no asthma, no wheezing. Gastrointestinal: no nausea, no vomiting, no diarrhea, no constipation, no blood in stool, no change in bowel habits, no abdominal pain, no hepatitis. Genitourinary: no kidney stones, no urine infection, no dysuria. Musculoskeletal: no pain, no weakness. Skin: no changing moles, no rash, no skin lumps. Neurologic: no seizures, no epilepsy, no headache. Psychiatric: no emotional or psychiatric problem. Heme/Lymph: no bleeding problems, no anemia, no blood clots, no transfusions. Allergy/Immunologic: no swollen lymph nodes/glands, no IV drug abuse. Other: Additional ROS info: Except as noted in the above Review of Systems and in the History of Present Illness, all other systems have been reviewed and are negative or noncontributory. Physical Exam Vitals & Measurements HR: 72(Peripheral) RR: 16 BP: 122/58 HT: 62 in HT: 158 cm WT: 51 kg WT: 112.436 lb BMI: 20.43 HEENT: normal conjunctiva, sclera clear, no scleral icterus, EOM intact, PERRLA, oral mucosa moist without lesions. Neck: trachea midline, no mass, symmetric, no thyromegaly or nodules, no adenopathy Respiratory: lungs CTA, respirations non labored. Cardiovascular: regular rate and rhythm, no murmur, no pedal edema or varicosities. Gastrointestinal: soft, non distended, no tenderness, no masses, no palpable hernias, diastasis recti no, no hepatosplenomegaly; normal bs Lymphatic: no cervical adenopathy, no axillary adenopathy, no inguinal adenopathy. Musculoskeletal: normal gait, digits and nails without infection, nodes, cyanosis, clubbing. Skin: no rashes, no lesions, no ulcers, no subcutaneous nodules, induration. Psychiatric/Neuro: oriented to time, place, person, judgement normal, affect appropriate for age, insight intact, no focal deficits. Tests: review of old records completed , Discussed surgical options, risks, and possible complications with patient. Assessment/Plan 1. Personal history of adenomatous and serrated colon polyps (Z86.0101: Personal history of adenomatous and serrated colon polyps) plan colonoscopy under anesthesia, informed consent obtained. Follow-up No qualifying data available Problem List/Past Medical History Ongoing Acute bronchitis Acute frontal sinusitis Anxiety disorder BMI 20.0-20.9, adult Breast cancer screening by mammogram Cerumen impaction Dupuytrens contracture Fluid level behind tympanic membrane of both ears Foot pain, right Gastritis History of non-ST elevation myocardial infarction (NSTEMI) History of recent fall Ingrown right big toenail Lower extremity neuropathy Onychomycosis Osteoarthritis of lumbosacral spine Pain in lower back Personal history of adenomatous and serrated colon polyps Personal history of colon polyps, unspecified Radiculopathy Right elbow pain Right low back pain Spondylosis Syncope Trigger ring finger of right hand Wellness examination Historical Hospital discharge follow-up NSTEMI (non-ST elevated myocardial infarction) Sore throat Procedure/Surgical History Colonoscopy (12/2017), Abdominal hysterectomy, Appendectomy, Cardiac catheterization, Cholecystectomy, Colonoscopy, D (dilation) and C (curettage) of uterus, Release of trigger finger, Release of trigger thumb. Medications aspirin, 81 mg, Oral, Daily Compression stockings, See Instructions escitalopram 5 mg oral tablet, See Instructions meloxicam 15 mg Tab, See Instructions oxybutynin 10 mg ER Tab, See Instructions, 3 refills Vitamin D3 2000 intl units oral Tab, 50 mcg, Oral, Daily Allergies No Known Allergies No Known Medication Allergies Social (more content not included)... [facility] Comment on above: Result Comment: Elec tronically Signed By: LISA MACIAS, Addy Perrin.br\Date and Time Signed: 07/19/24 16:15 EST 06-01-2024 Note Patient Education Caregiving Fall Prevention in the Home, Adult Falls can cause injuries and can happen to people of all ages. There are many things you can do to make your home safer and to help prevent falls. What actions can I take to prevent falls? General information ? Use good lighting in all rooms. Make sure to: ? Replace any light bulbs that burn out. ? Turn on the lights in dark areas and use night-lights. ? Keep items that you use often in [id number] places. Lower the shelves around your home if needed. ? Move furniture so that there are clear paths around it. ? Do not use throw rugs or other things on the floor that can make you trip. ? If any of your floors are uneven, fix them. ? Add color or contrast paint or tape to clearly otilio and help you see: ? Grab bars or handrails. ? First and last steps of staircases. ? Where the edge of each step is. ? If you use a ladder or stepladder: ? Make sure that it is fully opened. Do not climb a closed ladder. ? Make sure the sides of the ladder are locked in place. ? Have someone hold the ladder while you use it. ? Know where your pets are as you move through your home. What can I do in the bathroom? ? Keep the floor dry. Clean up any water on the floor right away. ? Remove soap buildup in the bathtub or shower. Buildup makes bathtubs and showers slippery. ? Use non-skid mats or decals on the floor of the bathtub or shower. ? Attach bath mats securely with double-sided, non-slip rug tape. ? If you need to sit down in the shower, use a non-slip stool. ? Install grab bars by the toilet and in the bathtub and shower. Do not use towel bars as grab bars. What can I do in the bedroom? ? Make sure that you have a light by your bed that is easy to reach. ? Do not use any sheets or blankets on your bed that hang to the floor. ? Have a firm chair or bench with side arms that you can use for support when you get dressed. What can I do in the kitchen? ? Clean up any spills right away. ? If you need to reach something above you, use a step stool with a grab bar. ? Keep electrical cords out of the way. ? Do not use floor greek or wax that makes floors slippery. What can I do with my stairs? ? Do not leave anything on the stairs. ? Make sure that you have a light switch at the top and the bottom of the stairs. ? Make sure that there are handrails on both sides of the stairs. Fix handrails that are broken or loose. ? Install non-slip stair treads on all your stairs if they do not have carpet. ? Avoid having throw rugs at the top or bottom of the stairs. ? Choose a carpet that does not hide the edge of the steps on the stairs. Make sure that the carpet is firmly attached to the stairs. Fix carpet that is loose or worn. What can I do on the outside of my home? ? Use bright outdoor lighting. ? Fix the edges of walkways and driveways and fix any cracks. Clear paths of anything that can make you trip, such as tools or rocks. ? Add color or contrast paint or tape to clearly otilio and help you see anything that might make you trip as you walk through a door, such as a raised step or threshold. ? Trim any bushes or trees on paths to your home. ? Check to see if handrails are loose or broken and that both sides of all steps have handrails. Install guardrails along the edges of any raised decks and porches. ? Have leaves, snow, or ice cleared regularly. Use sand, salt, or ice melter on paths if you live where there is ice and snow during the winter. ? Clean up any spills in your garage right away. This includes grease or oil spills. What other actions can I take? ? Review your medicines with your doctor. Some medicines can cause dizziness or changes in blood pressure, which increase your risk of falling. ? Wear shoes that: ? Have a low heel. Do not wear high heels. ? Have rubber bottoms and are closed at the toe. ? Feel good on your feet and fit well. ? Use tools that help you move around if needed. These include: ? Canes. ? Walkers. ? Scooters. ? Crutches. ? Ask your doctor what else you can do to help prevent falls. This may include seeing a physical therapist to learn to do exercises to move better and get stronger. Where to find more information ? Centers for Disease Control and Prevention, [place]: cdc.gov ? National [place] on Aging: linda.nih.gov ? National [place] on Aging: linda.nih.gov Contact a doctor if: ? You are afraid of falling at home. ? You feel weak, drowsy, or dizzy at home. ? You fall at home. Get help right away if you: ? Lose consciousness or have trouble moving after a fall. ? Have a fall that causes a head injury. These symptoms may be an emergency. Get help right away. Call 911. ? Do not wait to see if the symptoms will go away. ? Do not drive yourself to the hospital. This information is not intended to replace advice given (more content not included)... [facility] 04-21-2024 Note Cardiology Follow Up Progress Note Chief Complaint: Follow-up ([facility] Follow up/Concerns: No further cardiac concerns/symptoms. ) HPI: Jess Selby Arleen is a 68 y.o. female who with a past medical history including overactive bladder, anxiety, vitamin D deficiency, and recent NSTEMI who presents to [facility] for post hospitalization follow up. Patient was transferred to [facility] from outside hospital after presenting with complaints of abdominal pain, nausea, vomiting, and diarrhea x 8 times per day. She was found to be dehydrated, and fluid resuscitation was performed. Her troponin was found to be elevated, show she was transferred for further evaluation/management. [facility], patient was found to have a significantly [...] Value Ventricular Rate 67 Atrial Rate 67 DC Interval 142 QRS DURATION 70 QT Interval 448 QTC CALCULATION(BAZETT) 473 P [place] 83 R-[place] -5 T Wave [place] -22 Impression Normal sinus rhythm Possible Inferior [...] Bubble Study Result Date: 03/27/2024 1 1 [facility] Heart Station [address] [place] [address] [phone] (fax) Echocardiogram-[facility] Name: JESS BACON Study Date: 03/27/2024 07:59 AM B/P: 109 mmHg/66 mmHg HR: Date of : 1955 Location: [facility] Height: 61 in. Age: 68 year(s) Patient [...] Due to suboptima (more content not included)... [facility] 04-19-2024 Note Nurse Consultation N ote Reason [...] 5y-11y) vac - Not Given Patient Refuses [facility] 04-12-2024 Note Nurse Consultation N [...] 5y-11y) vac - Not Given Patient Refuses [facility] 04-06-2024 Note Patient Education Infectious Disease [...] medicines. These include steroids, antibiotics, and some pjih-jwq-cwluleu medicines, such as aspirin or ibuprofen. ? [...] these instructions at home: Medicines ? Take nzbs-svw-crtwast and prescription medicines only as told by [...] reduce the amount (more content not included)... [facility] 03-30-2024 Note Hospital Medicine Discharge Summary Final Discharge Diagnosis: NSTEMI (non-ST elevated myocardial infarction) ([facility]) Type II demand ischemia Gastroenteritis Overactive bladder Admission Diagnosis: NSTEMI (non-ST elevated myocardial infarction) ([facility]) [I21.4] Hospital course: Patient is a 68-year-old female with overactive bladder, anxiety, vitamin D deficiency, presented from [facility] with abdominal pain, nausea/vomiting and diarrhea, she was found to be dehydrated and started on IV fluids. She was subsequently found to have elevated troponin, therefore she was transferred to [facility] due to concern for NSTEMI. EKG on [...] any infection or hematoma. Dear Dr. Gonzalez, [facility], Jess is advised to follow up with you within 1-2 weeks. Follow-up with: Cardiologyand PCP Scheduled appointments: Future Appointments Date Time Provider Department Center 04/14/2024 3:40 PM Cris Polo MD [facility] Hos Your medication list CONTINUE taking these medications [...] was 33 minutes. Signed Gisela Holguin MD [facility] Medicine 03/30/2024 2:02 PM [facility] 03-30-2024 Note [facility] CARDIOLOGY INPAT IENT PROGRESS NOTE Reason for follow up: elevated troponin Subjective HPI: Jess Bacon is a 68 y.o. female with no known past medical history, no medications at home presented to the hospital due to elevated troponin the patient initially went to [facility] due to symptoms of abdominal pain, [...] WBC 6.22 03/07 (more content not included)... [facility] 03-29-2024 Note Patient: Jess yin Procedure Information Date/Time: 03/29/241123 Procedure: Coronary angiography - with cors Location: [facility] FREIGHT INSPECTOR 2 BIPLANE / [facility] (Cath) Providers: Bebo Yee MD [...] Plan discussed with attending. Additional Equipment Requests [facility] 03-29-2024 Note Hospital Medicine Daily Progress Note - 03/29/2024 11:31 AM; Room: [facility]/3140- Admission: 03/25/2024 9:23 PM; Length of stay: 4 days THE HOSPITALIST TEAM PREFERS TO USE Astley Clarke FOR COMMUNICATION 7AM-7PM. IF I DO NOT RESPOND WITHIN 15 MINUTES, PLEASE PAGE ME/CALL THROUGH THE MODELING MANAGER. FROM 7PM-7AM, PLEASE PAGE [phone](COVR) Code Status: Full Code Barriers to Discharge: Cardiac catheterization Expected Discharge Date: 03/25/2024 Discharge Destination: home Overview Patient is seen for evaluation and management of gastroenteritis, elevated troponin. Patient is a 68-year-old female with overactive bladder, anxiety, vitamin D deficiency, presented from [facility] with abdominal pain, nausea/vomiting and diarrhea, she was found to be dehydrated and started on IV fluids. She was subsequently found to have elevated troponin, therefore she was transferred to [facility] due to concern for NSTEMI. Peak troponin [...] Problem: NSTEMI (non-ST elevated myocardial infarction) ([facility]) Active Problems: Gastroenteritis Anxiety Abnormal stress test Assessment and Plan Patient is a 68-year-old female with overactive bladder, anxiety, vitamin D deficiency, presented from [facility] with abdominal pain, nausea/vomiting and diarrhea, she was found to be dehydrated and started on IV fluids. She was subsequently found to have elevated troponin, therefore she was transferred to [facility] due to concern for NSTEMI. Peak troponin [...] AST U/L 31 (more content not included)... [facility] 03-29-2024 Note [facility] CARDIOLOGY INPAT IENT PROGRESS NOTE Reason for follow up: elevated troponin Subjective HPI: Jess Bacon is a 68 y.o. female with no known past medical history, no medications at home presented to the hospital due to elevated troponin the patient initially went to [facility] due to symptoms of abdominal pain, [...] sob, palpitations, dizziness, LH, N/V/D. Tele: SR ALLERGIES No Known Allergies CURRENT MEDS aminophylline, [...] ischemia, TID ind (more content not included)... [facility] 03-28-2024 Note Hospital Medicine Daily Progress Note - 03/28/2024 1:37 PM; Room: [address] [place] [address] Admission: 03/25/2024 9:23 PM; Length of stay: 3 days THE HOSPITALIST TEAM PREFERS TO USE [employer] FOR COMMUNICATION 7AM-7PM. IF I DO NOT RESPOND WITHIN 15 MINUTES, PLEASE PAGE ME/CALL THROUGH THE MODELING MANAGER. FROM 7PM-7AM, PLEASE PAGE [phone](COVR) Code Status: Full Code Barriers to Discharge: Cardiac catheterization Expected Discharge Date: 03/29/2024 Discharge Destination: home Overview Patient is seen for evaluation and management of gastroenteritis, elevated troponin. Patient is a 68-year-old female with overactive bladder, anxiety, vitamin D deficiency, presented from [facility] with abdominal pain, nausea/vomiting and diarrhea, she was found to be dehydrated and started on IV fluids. She was subsequently found to have elevated troponin, therefore she was transferred to [facility] due to concern for NSTEMI. Peak troponin [...] Principal Problem: NSTEMI (non-ST elevated myocardial infarction) ([facility]) Active Problems: Gastroenteritis Anxiety Assessment and Plan Patient is a 68-year-old female with overactive bladder, anxiety, vitamin D deficiency, presented from [facility] with abdominal pain, nausea/vomiting and diarrhea, she was found to be dehydrated and started on IV fluids. She was subsequently found to have elevated troponin, therefore she was transferred to [facility] due to concern for NSTEMI. Peak troponin [...] last 7 days Lab Units 03/28/2445703/27/24 0535 03/26/24 0511 03/25/24 2311 WBC AUTO [...] days Lab Units 03/28/2445703/27/24 0535 03/25/24 2311 AST U/L 16 18 32 ALT U/L 13 13 21 ALK PHOS U/L 32* 33* 35 BILIRUBI (more content not included)... [facility] 03-28-2024 Note [facility] CARDIOLOGY INPAT IENT PROGRESS NOTE Reason for follow up: elevated troponin Subjective HPI: Jess Bacon is a 68 y.o. female with no known past medical history, no medications at home presented to the hospital due to elevated troponin the patient initially went to [facility] due to symptoms of abdominal pain, [...] TID index score (more content not included)... [facility] 03-27-2024 Note Attestation signed by Melonie Cole [...] to low blood pressure. Melonie Cole MD, [facility] Cardiology Progress Note Subjective Subjective: [...] (99.1 ???F) Temporal -- -- -- -- 03/26/241999 99/56 -- -- 68 (!) 31 96 [...] Value Ventricular Rate 67 Atrial Rate 67 DC Interval 142 QRS DURATION 70 QT Interval 448 QTC CALCULATION(BAZETT) 473 P [place] 83 R-[place] -5 T Wave [place] -22 Impression Normal sinus rhythm Possible Inferior [...] Bubble Study Result Date: 03/27/2024 1 1 [facility] Heart Station [address] [place], [place] [phone] (fax) Echocardiogram-[facility] Name: JESS BACON Study Date: 03/27/2024 07:59 AM B/P: 109 mmHg/66 mmHg HR: Date of : 1955 Location: [facility] Height: 61 in. Age: 68 year(s) Patient [...] (22ml - 52ml) (more content not included)... [facility] 03-27-2024 Note 03/27/24 6607 Admission Assessment Questions Verify insurance with patient Yes (Fredis LAZARBS. Medicare A B. [email or web address].) Do you understand medical disease or what [...] Bedside Delivery Status Not Interested (Sal in [facility].) Does the patient have a case picker assigned to them through their insurance? No [...] with plans to return Home no needs. [facility] 03-27-2024 Note Hospital Medicine Daily Progress Note - 03/27/2024 1:27 PM; Room: [address] [place] [address] Admission: 03/25/2024 9:23 PM; Length of stay: 2 days THE HOSPITALIST TEAM PREFERS TO USE [employer] CH[employer] FOR COMMUNICATION 7AM-7PM. IF I DO NOT RESPOND WITHIN 15 MINUTES, PLEASE PAGE ME/CALL THROUGH THE MODELING MANAGER. FROM 7PM-7AM, PLEASE PAGE [phone](COVR) Code Status: Full Code Barriers to Discharge: [...] Problem: NSTEMI (non-ST elevated myocardial infarction) ([facility]) Active Problems: Gastroenteritis Anxiety Assessment and [...] LDL 101 03/26/2024 No results found for: [id number] , IRON , TIBC , C3 , [...] T waves in (more content not included)... [facility] 03-27-2024 Note Physical Therapy Physical Therapy Evaluation Patient Name: Jess Bacon : 1955 Today's Date: 03/27/2024 Patient is a 68 y/o female who presented to [facility] with nausea/vomiting/diarrhea x2 days. Found to have elevated troponin and transferred to [facility] for further cardiac evaluation. Troponin currently 2.59. [...] List Diagnosis NSTEMI (non-ST elevated myocardial infarction) ([facility]) Gastroenteritis Anxiety History reviewed. No pertinent past [...] Level of Function Prior Function Level of [place]: Independent with ADLs and functional transfers, Independent [...] Discharge Recommendations: Ho (more content not included)... [facility] 03-27-2024 Note Occupational Therapy Occupational Therapy Evaluation Patient Name: Jess Bacon : 1955 Today's Date: 03/27/2024 Time In: 1026 Time Out: 1031 Jess Bacon is an 68 y.o. female who came from home with past medical history of overactive bladder, anxiety and vitamin D deficiency presented to [facility] as a transfer from [facility] for NSTEMI. 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) Prior Functional Mobility: Independent without device Prior [...] Eating meals?: None (Independent) Total Score OT [facility]: 24 Assessment/Plan Plan OT Plan: No skilled OT No Skilled OT: At baseline function OT Discharge Recommendations: Home OT - Discharge Recommendations Placed: Yes OT Goals Multi-Disciplinary Problems (from Occupational Therapy) Active Problems Not on file [facility] 03-26-2024 Note Hospital Medicine Daily Progress Note - 03/26/2024 4:53 PM; Room: [address] [place] [address] Admission: 03/25/2024 9:23 PM; Length of stay: 1 days THE HOSPITALIST TEAM PREFERS TO USE [employer] FOR COMMUNICATION 7AM-7PM. IF I DO NOT RESPOND WITHIN 15 MINUTES, PLEASE PAGE ME/CALL THROUGH THE MODELING MANAGER. FROM 7PM-7AM, PLEASE PAGE [phone](COVR) Code Status: Full Code Barriers to Discharge: [...] Principal Problem: NSTEMI (non-ST elevated myocardial infarction) (CMS/[facility]) Active Problems: Gastroenteritis Anxiety Assessment and [...] LDL 101 03/26/2024 No results found for: [id number] , IRON , TIBC , C3 , [...] Lateral Discharge Planning Signed Maximino Cancino MD [facility] Medicine 03/26/2024 4:53 PM [facility] 03-25-2024 Note Hospital Medicine History and Physical 03/25/2024 10:58 PM THE HOSPITALIST TEAM PREFERS TO USE [employer] FOR COMMUNICATION 7AM-7PM. IF I DO NOT RESPOND WITHIN 15 MINUTES, PLEASE PAGE ME/CALL THROUGH THE MODELING MANAGER. FROM 7PM-7AM, PLEASE PAGE [phone](COVR) Chief Complaint No chief complaint on file. History of Present Illness Jess Bacon is an 68 y.o. female who came from home with past medical history of overactive bladder, anxiety and vitamin D deficiency presented to [facility] as a transfer from [facility] for NSTEMI. Patient reports that for [...] were still elevated so cardiology team at [facility] was called and they wanted patient to be transferred forNSTEMI treatment to [facility]. Patient denies chest pain or increased shortness [...] Noted NSTEMI (non-ST elevated myocardial infarction) ([facility]) 03/25/2024 Gastroenteritis 03/25/2024 Anxiety 03/25/2024 Assessment [...] this hospital stay by a member of [facility] Medicine. Past Medical History History [...] Ran Out o (more content not included)... [facility] Evaluation + Plan note Future Appointments Appointment Date:04/27/2024 01:00:00 PM Scheduled Provider: Location:[facility] Appointment Type:FM Medicare Wellness Subsequent [facility] Evaluation + Plan note Future Appointments Appointment Date:06/04/2025 02:30:00 PM Scheduled Provider: Location:[facility] Appointment Type:FM Medicare Wellness Subsequent Future Scheduled TestsMA Mamm Screen w/CAD if perf and 3D Dimitri 06/01/24 [facility] Evaluation note Diagnosis Onset Date Low back pain acute [facility] Work Phone: Hospital course Narrative No data available for this section [facility] Hospital Discharge instructions No data available for this section [facility] Care Progress note No data available for this section [facility] Summary Purpose Family History No [...] DATE CREATED AUTHOR AUTHOR'S ORGANIZ ATION 01/23/2024 [facility] EPIC DATE CREATED AUTHOR AUTHOR'S ORGANIZ ATION 05/02/2024 [facility] DATE CREATED AUTHOR AUTHOR'S ORGANIZ ATION 06/04/2024 [facility] DATE CREATED AUTHOR AUTHOR'S ORGANIZ ATION 07/22/2024 Madeline Apache [facility] Patient Care team informatio n (unrecognized [...] BE BASED ON THE PRIMARY CLINICAL RECORDS. [employer] [facility]. provides no warranty or guarantee of the accuracy or completeness of information in this document.
== END 2024-08-08 07:25 | disposition home or self-care (01) ==
LOC: PST 07:24
PROVIDERS: PCP Nurse Practitioner; Visit Provider Surgery
DX: Z01.818 Encounter for other preprocedural examination (principal); Z12.11 Encounter for screening for malignant neoplasm of colon

== ENCOUNTER 2024-09-19 14:45 | Outpatient (OUT) | payer OTHER, BC, SELFPAY ==
--- OUTSIDE RECORDS SUMMARY | 2024-09-19 15:05 | XMS_ITS | CCD ---
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 Name Role Phone ABIOLA, DR GINA Berg Primary Care Unavailable PAY, DR ROBLES Admitting Unavailable PAY, DR ROBLES Attending Unavailable IVETTE RICHMOND Consulting Unavailable Millie Gonzalez Primary Care Physician [phone] LAUREANO AMARAL Referring Unavailable LAUREANO AMARAL Attending Unavailable LAUREANO AMARAL Referring Unavailable LARISSA SUTTON Attending Unavailable LARISSA SUTTON Referring Unavailable CANCINO, MAXIMINO CHUL Referring Unavailable MARY GARCIA Referring Unavailabl e CANCINO, MAXIMINO CHUL Referring Unavailable HORANI, SUDHIR Admitting Unavailable HOLGUIN, GISELA Attending Unavailable DIAB, VANNA Referring Unavailable JAMIHOTHOLY ELLIOTTAMAD Attending Unavailable MARY GARCIA Referring Unavailabl e MARY GARCIA Referring Unavailabl e CARLOS العراقي Attending Provider [phone] MD Luisito Roth Primary Care Provider [phone] Zoila العراقي Attending Unavailable Zoila العراقي Admitting Unavailable Luisito Roth Primary Care Unavailable Millie Gonzalez Attending Unavailable CarlosMillie Attending Unavailable CarlosMillie avitia Attending Unavailable MD Luisito Roth. Admitting Unavailable PHILLIP NUNEZ Attending Unavailable Addy VELA Attending Unavailable CarlosMillie Attending Unavailable CarlosMillie Attending Unavailable CarlosMillie Attending Unavailable CarlosMillie Attending Unavailable CarlosMillie avitia Attending Unavailable CarlosMillie avitia Attending Unavailable MD Luisito Roth. Attending Unavailable CarlosMillie Attending Unavailable CarlosMillie Attending Unavailable CarlosMillie Attending Unavailable CarlosMillie Attending Unavailable Carlos, Millie L Attending Unavailable Allergies Allergy Classification Reported Allergen(s) Allergy Type Date of Onset Reaction(s) Facility (1 source) No Known Medication Allergies; Translations: [No Known Medication Allergies] Propensity to adverse reactions (disorder) [facility] Repository Medications Current Medications Medication [...] day(s), # 5 tab(s), Refills(s) 0, Pharmacy: [facility] #[id number], 158, cm, 10/29/23 13:27:00 EST, Height/Length Dosing, [...] daily, # 90 tab(s), Refills(s) 0, Pharmacy: [facility], 158, cm, 06/06/24 14:02:00 [...] Daily, # 90 tab(s), Refills(s) 3, Pharmacy: [facility], 157, cm, 05/25/23 15:27:00 [...] daily, # 30 tab(s), Refills(s) 0, Pharmacy: [facility], 158, cm, 06/06/24 14:02:00 [...] daily, # 90 tab(s), Refills(s) 3, Pharmacy: [facility], 158, cm, 04/06/24 14:41:00 EDT, Height/Length Dosing, 54.1, kg, 04/06/24 14:41:00 EDT, Weight Dosing Start Date: 04/17/24 Status: Ordered Vitamin D3 1999 intl units oral Tab (2 sources) Start: [...] 05-11-2024 Chronic Comment on above: Noted in [facility] page 4 , added per outpatient CDI [...] Test Name Value Interpretation Reference Range Facility Family Medicine Office/Clini c Noteon 08-31-2024 Family Medicine Office/Clinic Note Family Medicine Office/Clinic Note HPI Staff Jess is a 68 year old female presenting with head cold Symptoms started- Started on August 22 Headache- yes today this started Body aches- yes Earache- both ears Runny/stuffy nose- yes Problem with Smell- no Problem with Taste- no Sore throat- no, Cough- no Scratchy, tickle in throat- yes tickle in her throat Chest symptoms- no LEAHY- no Orthopnea- yes Lung Hx asthma, bronchitis, chest colds- no Fever/chills- no GI symptoms- no COVID exposure- no Remedies tried: Day quil, and Nyquil did not help at all History of Present Illness pt presents today with URI symptoms Review of Systems PHQ Score Initial Depression Screen Score: 0 SCORE Physical Exam Vitals & Measurements T: 36.7 ???C(Oral) HR: 74(Peripheral) RR: 18 BP: 116/68 SpO2: 97% HT: 62 in HT: 158.0 cm WT: 49.6 kg WT: 109.349 lb BMI: 19.87 General: alert, no acute distress ENMT: oral mucosa moist, no pharyngeal erythema or exudate Cardiovascular: regular rate and rhythm, normal peripheral perfusion Respiratory: Lungs CTA, respirations non labored Extremities: no deformity, no trauma Neurological: oriented x 4, LOC appropriate for age, CN II-XII intact, motor strength equal & normal bilaterally, speech normal Assessment/Plan 1. Non-smoker (Z78.9: Other specified health status) continue not smoking 2. BMI less than 19,adult (Z68.1: Body mass index [BMI] 19.9 or less, adult) BMI education 3. Sinusitis (J32.9: Chronic sinusitis, unspecified) pt c/o severe nasal and head congestion. flu and covid both negative in office today. will treat sinus infection. kenalog given in office today RTC as needed Ordered: fluticasone nasal, 2 spray(s), Nasal, Daily, 16 gram, Refill(s) 0, each nostril, [facility], 158, cm, 08/31/24 14:31:00 EST, Height/Length Dosing, 49.6, kg, 08/31/24 14:31:00 EST, Weight Dosing Influenza Type A&B POC 99173 Rapid COVID POC 13501 Orders: amoxicillin, 500 mg = 1 cap(s), Oral, TID, X 7 day(s), # 21 cap(s), Refills(s) 0, Pharmacy: [facility], 158, cm, 08/31/24 14:31:00 EST, Height/Length Dosing, 49.6, kg, 08/31/24 14:31:00 EST, Weight Dosing Follow-up No qualifying data available [...] Right elbow pain Right low back pain Sinusitis Spondylosis Syncope Trigger ring finger of right hand Wellness examination Historical Hospital discharge follow-up NSTEMI (non-ST elevated myocardial infarction) Sore throat Procedure/Surgical History Colonoscopy (12/2017), Abdominal hysterectomy, Appendectomy, Cardiac catheterization, Cholecystectomy, Colonoscopy, D (dilation) and C (curettage) of uterus, Release of trigger finger, Release of trigger thumb. Medications amoxicillin 500 mg Cap, 500 mg= 1 cap(s), Oral, TID aspirin, 81 mg, Oral, Daily Compression stockings, See Instructions escitalopram 5 mg oral tablet, See Instructions Flonase 0.05 mg/inh [place], 2 spray(s), Nasal, Daily meloxicam 15 mg Tab, See Instructions oxybutynin 10 mg ER Tab, See Instructions, 3 refills Vitamin D3 2000 intl units oral Tab, 50 mcg, Oral, Daily Allergies No Known Allergies No Known Medication Allergies Social History Alcohol - Denies Alcohol Use, 11/30/2022 Never., 07/16/2024 Substance Abuse - Denies Substance Abuse, 11/30/2022 Never., 07/16/2024 Tobacco - Denies Tobacco Use, 11/30/2022 Never (less than 100 in lifetime) Tobacco Use:. Never Smokeless Tobacco Use:., 08/31/2024 Family History Emphysema: Father. Schizoaffective disorder: Mother. Immunizations Vaccine Date Status Comments influenza virus vaccine, inactivated - Not Given Patient Refuses influenza virus vaccine, inactivated - Not Given Patient Refuses SARS-CoV-2 mRNA (alessandron 5y-11y) vac - Not Given Patient Refuses Lab Results Ambulatory Point of Care Results Influenza A POC: Negative (08/31/24 14:43:00) Influenza B POC: Negative (08/31/24 14:43:00) Rapid Covid POC: Negative (08/31/24 14:43:00) Normal [facility] Comment on above: Result Comment: Elec tronically Signed By: Millie Florentino\.br\Date and Time Signed: 08/31/24 14:46 EST Ambulatory Visit Summaryon 1 09-18-2023 Ambulatory Visit Summary Ambulatory Visit Summary JESS BACON :1955 Visit Date:07/19/2024 Ambulatory Visit Instructions Your [...] Follow-Up Appointments Wednesday 2:30 PM EDT Where: [address] [address]- Medications What How Much When [...] you for choosing us for your care. [facility] Ambulatory Visit Summaryon 1 Ambulatory Visit [...] Follow-Up Appointments Wednesday 2:30 PM EDT Where: [address] [address]- Medications What How Much When Why Instructions [...] choosing us for your care. Normal [facility] Family Medicine Office/Clini c Noteon 06-06-2024 Family Medicine Office/Clinic Note Family Medicine Office/Clinic Note HPI Staff Jess is a 68 year old female presenting with needing clearance to go back to work [employer]- waiting for MRI - Has not called for them to schedule them Message in chart from consult with Dr Vela in [place] or [place] yesterday- Still has to call back History [...] for malignant neoplasm of breast) order for [facility] provided and faxed Follow-up No qualifying data [...] vac - Not Given Patient Refuses Normal [facility] Comment on above: Result Comment: Elec tronically Signed By: Millie Florentino\.asaf\Date and Time Signed: 06/06/24 14:24 EDT Provider Letteron 06-06-2024 Provider Letter Provider Letter [address] [place] [address] June 06, 2024 JESS [address]ON [address] [place] [address] : 1955 To Whom It May Concern, Please excuse above patient from work due to injury. Date of Illness: From: 05/29/2024 To: 06/07/2024 May Return to Work On:06/08/2024 Restrictions: No vibrating hand tools Sincerely, JAH Jon [facility] Provider Letter Provider Letter [address] [place] [address] June 06, 2024 [place] [address] : 1955 To Whom It May Concern, Please excuse above patient from work due to injury. Date of Illness: From: 05/29/2024 To: 06/07/2024 May Return to Work On:06/08/2024 Restrictions: none Sincerely, JAH Jon [facility] Ambulatory Visit Summaryon 0 06-02-2024 Ambulatory Visit [...] Follow-Up Appointments Wednesday 2:30 PM EDT Where: [place] [address]- You Need to Complete the Following MA Mamm Screen w/CAD if perf and 3D Dimitri, 06/01/24, Routine, Order for Future Visit, Transport Mode: Ambulatory, Reason: Screening, No, Breast cancer screening by mammogram, pp_set_radiology_subsp ecialty, [facility] Medications What How Much When Why Instructions [...] i (more content not included)... Normal [facility] Family Medicine Office/Clini c Raiza 06-02-2024 Family Medicine Office/Clinic Note Family Medicine Office/Clinic Note HPI Staff Jess is a 68 year old female presents today for colonoscopy & mammogram order. Order sent for mammogram to [facility] by Lydia Colonoscopy ? [facility] if they do this? History of Present [...] would like to have it done at [facility]. referral placed for Dr. Vela to do at [facility] Ordered: E&M of Est. Patient Straight Fwd 10-[address] [facility] Internal Ambulatory Referral 2. Right low back pain (M54.50: Low back pain, unspecified) completed FMLA paperwork. pain is somewhat improving. waiting for MRI Ordered: E&M of Est. Patient Straight Fwd 10-19 Min [id number] Orders: 1125F Pain severity quantified; pain present [...] vac - Not Given Patient Refuses Normal [facility] Comment on above: Result Comment: Elec tronically Signed By: Millie Florentino\.br\Date and Time Signed: 06/02/24 10:05 EDT Family [...] of clutter to prevent tripping and/or falling. [place] Advance Directives reviewed. Documents provided to patient, [...] ordered and has been faxed to the [facility] per patient request, hospital will call [...] for sturdiness. (more content not included)... Normal [facility] Comment on above: Result Comment: Elec tronically Signed By: Millie Florentino\.br\Date and Time Signed: 06/02/24 09:25 EDT\.br\Electronically Co-Signed By: Lydia Rodrigues\.br\Date and Time Co-Signed: 06/01/24 15:44 EDT Ambulatory Visit Summaryon 0 05-29-2024 Ambulatory Visit Summary Ambulatory Visit Summary ARLEENJESS :1955 Visit Date:05/29/2024 Ambulatory Visit Instructions Your [...] Appointments 2023 2:30 PM EDT With: Where: [address] [address] 2023 3:00 PM EDT With: Millie Florentino Where: [address] [address]- Medications What How Much When Why Instructions [...] choosing us for your care. Normal [facility] Medicine Office/Clini c Noteon 05-29-2024 Family Medicine Office/Clinic Note Family Medicine Office/Clinic Note Chief Complaint Pain following fall HPI Staff Pt presents today after a fall on Wednesday Onset: Wednesday Location:above Rt hip/Rt side Characteristics:_densacha s bruising Aggravated by: walking, sitting, standing [...] pain, # 30 tab(s), Refills(s) 0, [facility], 158, cm, 05/29/24 13:41:00 EDT, Height/Length Dosing, 52.5, kg, 05/29/24 13:41:00 EDT, Weight Dosing 2. Right low back pain (M54.50: Low back pain, unspecified) pt fell and landed on right lower back Ordered: tramadol, 50 mg = 1 tab(s), Oral, q12hr, PRN for pain, # 30 tab(s), Refills(s) 0, Pharmacy: [facility], 158, cm, 05/29/24 13:41:00 EDT, Height/Length Dosing, 52.5, kg, 05/29/24 13:41:00 EDT, Weight Dosing 3. BMI 21.0-21.9, adult (Z68.21: Body mass index [BMI] 21.0-21.9, adult) BMI education Ordered: tramadol, 50 mg = 1 tab(s), Oral, q12hr, PRN for pain, # 30 tab(s), Refills(s) 0, Pharmacy: [facility], 158, cm, 05/29/24 13:41:00 EDT, Height/Length [...] pain, # 30 tab(s), Refills(s) 0, Pharmacy: [facility], 158, cm, 05/29/24 13:41:00 EDT, Height/Length [...] vac - Not Given Patient Refuses Normal [facility] Comment on above: Result Comment: Elec tronically Signed By: Millie Florentino\.br\Date and Time Signed: 05/29/24 14:13 EDT Provider Letteron 05-29-2024 Provider Letter Provider Letter May 29, 2024 [address] B[address]ON [address] [place] [id number] : 1955 To Whom It May Concern, Please excuse above patient from work due to medical Date of Illness: From: _ 05-29-24 To: 05-30-24 May Return to Work On: 05-31-24 Restrictions: _ Comments: _ Sincerely, Normal [facility] XR lumbar spine min 4V*on XR lumbar spine min 4V* [facility] [place] [address] [place] [address] XRay Report Signed Patient: Jess Bacon MR#: [id number] : 1955 Acct:[id number] Age/Sex: 68 / F ADM Date: 05/27/24 Loc: XDUCLY Room: Type: [facility] Attending Dr: Zoila العراقي APRN Copies [...] Marinelli Jr., D.O.05/27/2024 2:47 PM Dictation Location: [facility] Transcribed By: [facility] 05/27/24 1447 Dictated By: Eleuterio Marinelli Jr, DO 05/27/24 1446 Signed By: 05/27/24 1447 Normal [facility] Ambulatory Visit Summaryon 0 05-12-2024 Ambulatory Visit Summary Ambulatory Visit Summary ARLEENJESS :1955 Visit Date:05/12/2024 Ambulatory Visit Instructions Your [...] Appointments 2023 2:30 PM EDT With: Where: [address] [address] 2023 3:00 PM EDT With: Millie Florentino Where: [address] [address]- Someone Will Contact You Regarding These Appointments [facility] External Ambulatory Referral, [place], 05/12/24 10:37:00 EDT, Foot pain, right Non-smoker BMI 20.0-20.9, adult Medications What How Much When Why Instructions New meloxicam (meloxicam 15 mg Tab) 1 Tablets By Mouth Every day Foot pain, right Non-smoker BMI 20.0-20.9, adult Pickup at [facility] New methylPREDNISolone (Medrol 4 mg Tab) 1 Packets By Mouth As Directed Foot pain, right Non-smoker BMI 20.0-20.9, adult Duration: 6 Days as directed on package labeling Pickup at [facility] 142 Unchanged aspirin 81 Milligram By Mouth [...] Gram By Mouth Every day Pharmacy Information [facility]: [address] [place], [place] [id number] [phone] Allergies No Known Medication Allergies Problems Ongoing [...] choosing us for your care. Normal [facility] Family Medicine Office/Clini c Noteon 05-12-2024 Family [...] Daily, # 30 tab(s), Refills(s) 0, Pharmacy: [facility], 158, cm, 05/12/24 10:25:00 EDT, Height/Length Dosing, 52.3, kg, 05/12/24 10:25:00 EDT, Weight Dosing methylPREDNISolone, = 1 packet(s), Oral, As Directed, as directed on package labeling, X 6 day(s), # 21 tab(s), Refills(s) 0, Pharmacy: [facility], 158, cm, 05/12/24 10:25:00 EDT, Height/Length Dosing, 52.3, kg, 05/12/24 10:25:00 EDT, Weight Dosing [facility] External Ambulatory Referral 2. Non-smoker (Z78.9: Other specified health status) continue not smoking Ordered: meloxicam, 15 mg = 1 tab(s), Oral, Daily, # 30 tab(s), Refills(s) 0, Pharmacy: [facility], 158, cm, 05/12/24 10:25:00 EDT, Height/Length Dosing, 52.3, kg, 05/12/24 10:25:00 EDT, Weight Dosing methylPREDNISolone, = 1 packet(s), Oral, As Directed, as directed on package labeling, X 6 day(s), # 21 tab(s), Refills(s) 0, Pharmacy: [facility], 158, cm, 05/12/24 10:25:00 EDT, Height/Length Dosing, 52.3, kg, 05/12/24 10:25:00 EDT, Weight Dosing Body Mass Index (BMI) documented 3008F Current tobacco non-user 1036F Depression Screening Negative 3352F [facility] External Ambulatory Referral Influenza immunization status assessed [...] Daily, # 30 tab(s), Refills(s) 0, Pharmacy: [facility], 158, cm, 05/12/24 10:25:00 EDT, Height/Length Dosing, 52.3, kg, 05/12/24 10:25:00 EDT, Weight Dosing methylPREDNISolone, = 1 packet(s), Oral, As Directed, as directed on package labeling, X 6 day(s), # 21 tab(s), Refills(s) 0, Pharmacy: [facility], 158, cm, 05/12/24 10:25:00 EDT, Height/Length Dosing, 52.3, kg, 05/12/24 10:25:00 EDT, Weight Dosing Body Mass Index (BMI) documented 3008F Current tobacco non-user 1036F Depression Screening Negative 3352F [facility] External Ambulatory Referral Influenza immunization status assessed [...] Appendectomy, Cholecystecto (more content not included)... Normal [facility] Comment on above: Result Comment: Elec tronically Signed By: Millie Florentino\.asaf\Date and Time Signed: 05/12/24 10:43 EDT Follow-Upon 04-21-2024 Follow-Up [id number] Arleen,Nao syke Selby 1955 F Date Provider Department Center 04/21/2024 3848-JAMISHANACRIS [facility] No family history on file Level of Service:70399 CO OFFICE/OUTPATIENT ESTABLISHED LOW MDM 20 MIN Reason for Visit and Comments: Follow-up [531310] - [facility] Follow up Concerns: No further cardiac concerns/symptoms. Normal [facility] Population Health 04-13-20 [facility] Population Health Case Information Case Priority: None Programs: -- Referral Source: Tree Trimming Supervisor Referral Reason: Care coordination Case Type: Transition [...] Patient has cardio follow up tomorrow at [facility] with [facility]. Patient denies any further questions or concerns. Communication Events Date: April 13, 2024 Method: Phone call Type: Outbound Duration (min): 4 Outcome: Case discussion Contact Type: accreditation coordinator Contact Name: Michael Murray Notes: TCM#2- see tcm note. Created By: Michael Murray Date: March 31, 2024 Method: Phone call Type: Outbound Duration (min): 15 Outcome: Case discussion Contact Type: accreditation coordinator Contact Name: Michael Murray Notes: TCM#1- see tcm note. Created By: Michael Murray [facility] Ambulatory Visit Summaryon 0 04-06-2024 Ambulatory Visit Summary Ambulatory Visit Summary JESS BACON [place] :1955 Visit Date:04/06/2024 Ambulatory Visit Instructions Your [...] Follow-Up Appointments Wednesday 3:00 PM EDT Where: [address] [address] 2023 1:00 PM EDT Where: [address] [address]- Medications What How Much When Why Instructions [...] medicines. These include steroids, antibiotics, and some ixvr-jxz-wqanqyz medicines, such as aspirin or ibuprofen. ? [...] medical histor (more content not included)... Normal [facility] Family Medicine Office/Clini c Noteon 04-06-2024 Family Medicine Office/Clinic Note Family Medicine Office/Clinic Note HPI Staff Jess is a 68 year old female presenting for [facility] hospital follow up Patient of Millie Gonzalez, no open hours on Millie's schedule and she had to have this f/u Brought log of bp readings with her TCM: Hospital: [facility] & [facility] Admission date: 03/25/24 Discharge date: 03/30/24 Symptoms the patient presented with: abd pain, N&V, diarrhea Dx non ST [place], type II demand ischemia, GE, overactive bladder [...] Schizoaffective disorder (more content not included)... Normal [facility] Comment on above: Result Comment: Elec tronically Signed By: Luisito Roth MD\.br\Date and Time Signed: 04/06/24 14:53 EDT 36on 04-04-2024 36 Manager [employer] spoke with patient regarding a [facility] hospital follow up appointment for abd pain and nausea and vomiting. Patient stated she would like to follow up with her PCP. [facility] 03-31-2024 36 Post Discharge Call Good morning, I am Geovanna Ram RN a lead nurse from [facility]. I am calling you [...] 03/31/2024 Patient Name Jess Bacon Date 03/31/24 [facility] Population [facility] 03-31-20 [facility] Case Information Case Priority: None Programs: -- Referral Source: Tree Trimming Supervisor Referral Reason: Care coordination Case Type: Transition [...] 03/30/24 Follow-up appointment scheduled? yes, Dr. Roth [facility] 04/06/24 at 1500 Did you [...] gastroenteritis, overactive bladder. Patient was transferred from [facility] to [facility] on 03/25/24, she [...] returns to work on Wednesday04/03/24. 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 Patient of Ronald Gonzalez scheduled for TCM follow up with Dr. Roth d/t scheduling conflicts. 04/06/24 at 1500 and to bring medications, cardio f/u 04/14/24, Dr. Polo [facility]. CN explained TCM program and gave CN contact number. Communication Events Date: March 31, 2024 Method: Phone call Type: Outbound Duration (min): 15 Outcome: Case discussion Contact Type: accreditation coordinator Contact Name: Michael Murray Notes: TCM#1- see tcm note. Created By: Michael Murray [facility] Telephoneon 03-31-2024 Telephone [phone] Mary Bacon 1955 F Date Provider Department Center 03/31/2024 1600-GEOVANNA RAM [facility] No family history on file Reason for Visit and Comments: Hospital Follow-up [832] Normal [facility] 30on 03-30-2024 30 The patient is [...] Licensed In (more content not included)... Normal [facility] CBCon 03-30-2024 Erythrocyte distribution width (RBC) [Ratio] 13.7 % Normal 11.5-15.0 [facility] Comment on above: Performed By: #### L [id number] ####[facility] (Cute Attack[employer]ER)[address] [place] [address] ERYTHROCYTE MEAN CORPUSCULAR HEMOGLOBIN CONCENTRATION (G/DL) BY AUTOMATED 33.0 g/dL Normal 32.0-35.0 [facility] Comment on above: Performed By: #### L [id number] ####[facility] (BES[employer])[address] [place] [address] Hematocrit (Bld) [Volume fraction] 42.4 % Normal 36.0-48.0 [facility] Comment on above: Performed By: #### L [id number] ####[facility] ([facility] [place] [address] Hemoglobin (Bld) [Mass/Vol] 14.0 g/dL Normal 12.0-15.0 [facility] Comment on above: Performed By: #### L [id number] ####[facility] ([facility])[address] [place] [address] MCH (RBC) [Entitic mass] 28.6 pg Normal 27.0-33.0 [facility] Comment on above: Performed By: #### L [id number] ####[facility] ([facility])[address] [place] [address] MCV (RBC) [Entitic vol] 86.7 fL Normal 82.0-98.0 [facility] [facility] Comment on above: Performed By: #### L [id number] ####[facility] ([facility])[address] [place] [address] PLATELETS (10*3/UL) IN BLOOD AUTOMATED COUNT 188 10*3/uL Normal 150-400 [facility] Comment on above: Performed By: #### L [id number] ####[facility] ([facility])[address] [place] [address] RBC (Bld) [#/Vol] 4.89 10*6/uL Normal 3.80-5.00 [facility] Comment on above: Performed By: #### L [id number] ####[facility] ([facility])[address] [place] [address] WBC (Bld) [#/Vol] 6.22 10*3/uL Normal 4.00-10.60 [facility] Comment on above: Performed By: #### L [id number] ####[facility] (BE[facility])[address] [place] [address] COMPREHENSIVE METABOLIC PANE Mynor 03-30-2024 Albumin [Mass/Vol] 3.8 g/dL Normal 3.5-5.7 [facility] Comment on above: Performed By: #### L [id number] ####[facility] ([facility])[address] [place] [address] ALP [Catalytic activity/Vol] 36 U/L Normal 34-104 [facility] Comment on above: Performed By: #### L [id number] ####[facility] ([facility])[address] [place] [address] ALT [Catalytic activity/Vol] 45 U/L Normal 7-52 [facility] Comment on above: Performed By: #### L [id number] ####[facility] ([facility])[address] [place] [address] Anion gap [Moles/Vol] 9 mmol/L Normal 7-20 [facility] Comment on above: Performed By: #### L [id number] ####[facility] ([facility])[address] [place] [address] AST [Catalytic activity/Vol] 49 U/L High 13-39 [facility] Comment on above: Performed By: #### L [id number] ####[facility] ([facility])[address] [place] [address] Bilirubin [Mass/Vol] 0.6 mg/dL Normal 0.3-1.0 [facility] Comment on above: Performed By: #### L [id number] ####[facility] ([facility])[address] [place] [address] Calcium [Mass/Vol] 9.0 mg/dL Normal 8.6-10.3 [facility] Comment on above: Performed By: #### L [id number] ####[facility] ([facility])[address] [place] [address] Chloride [Moles/Vol] 103 mmol/L Normal 98-107 [facility] Comment on above: Performed By: #### L [id number] ####[facility] ([facility])[address] [place] [address] CO2 [Moles/Vol] 30 mmol/L Normal 21-31 [facility] Comment on above: Performed By: #### L [id number] ####[facility] ([facility])[address] [place] [address] Creatinine [Mass/Vol] 0.65 mg/dL Normal 0.60-1.20 [facility] Comment on above: Performed By: #### L [id number] ####[facility] ([facility])[address] [place] [address] GLOMERULAR FILTRATION RATE ML/MIN/1.73 SQ M.PREDICTED 95.8 mL/min/1.73m*2 Normal >60.0 [facility] Comment on above: Result Comment: The [facility]???s estimated glomerular filtration rate (eGFR) will [...] of individuals. Performed By: #### L [id number] ####[facility] ([facility])[address] [place] [address] Glucose [Mass/Vol] 91 mg/dL Normal 70-100 [facility] Comment on above: Performed By: #### L [id number] ####[facility] ([facility])[address] [place] [address] Potassium [Moles/Vol] 4.3 mmol/L Normal 3.5-5.1 [facility] Comment on above: Performed By: #### L [id number] ####[facility] ([facility])[address] [place] [address] Protein [Mass/Vol] 6.1 g/dL Normal 6.0-8.3 [facility] Comment on above: Performed By: #### L [id number] ####[facility] ([facility])[address] [place] [address] Sodium [Moles/Vol] 138 mmol/L Normal 136-145 [facility] Comment on above: Performed By: #### L [id number] ####[facility] ([facility])[address] [place] [address] Urea nitrogen [Mass/Vol] 18 mg/dL Normal 7-25 [facility] Comment on above: Performed By: #### L [id number] ####[facility] ([facility])[address] [place] [address] UREA NITROGEN/CREATININE (MASS RATIO) IN SER/PLAS 27.7 Normal [facility] Comment on above: Performed By: #### L [id number] ####[facility] ([facility])[address] [address] 30on 03-29-2024 30 Problem: Pain - Adul [...] and behaviors that affect risk of falls [place] fall precautions as indicated by assessment Educate [...] or improved Outcome: Progressing Flowsheets (Taken 03/29/2024 2327) Care Plan - Patient's Chronic Conditions and [...] and prevent overall improvement and discharge Normal [facility] 30 Daily Case Managemen t Update [...] Home OT Recommendations: Home New Consults: Normal [facility] 30 The patient is Moderately Stable [...] of seizures Outcome: Progressing Flowsheets (Taken 03/29/2024 0754) Absence of seizures: Monitor for seizure activity. [...] function Outc (more content not included)... Normal [facility] CBCon 03-29-2024 Erythrocyte distribution width (RBC) [Ratio] 13.6 % Normal 11.5-15.0 [facility] Comment on above: Performed By: #### L [id number] ####[facility] ([facility])[address] [place] [address] ERYTHROCYTE MEAN CORPUSCULAR HEMOGLOBIN CONCENTRATION (G/DL) BY AUTOMATED 32.5 g/dL Normal 32.0-35.0 [facility] Comment on above: Performed By: #### L [id number] ####[facility] ([facility])[address] [place] [address] Hematocrit (Bld) [Volume fraction] 42.8 % Normal 36.0-48.0 [facility] Comment on above: Performed By: #### L [id number] ####[facility] ([facility])[address] [place] [address] Hemoglobin (Bld) [Mass/Vol] 13.9 g/dL Normal 12.0-15.0 [facility] Comment on above: Performed By: #### L [id number] ####[facility] ([facility])[address] [place] [address] MCH (RBC) [Entitic mass] 29.0 pg Normal 27.0-33.0 [facility] Comment on above: Performed By: #### L [id number] ####[facility] ([facility])[address] [place] [address] MCV (RBC) [Entitic vol] 89.4 fL Normal 82.0-98.0 [facility] Comment on above: Performed By: #### L [id number] ####[facility] ([facility])[address] [place] [address] PLATELETS (10*3/UL) IN BLOOD AUTOMATED COUNT 182 10*3/uL Normal 150-400 [facility] Comment on above: Performed By: #### L [id number] ####[facility] ([facility])[address] [place] [address] RBC (Bld) [#/Vol] 4.79 10*6/uL Normal 3.80-5.00 [facility] Comment on above: Performed By: #### L [id number] ####[facility] ([facility])[address] [place] [address] WBC (Bld) [#/Vol] 5.41 10*3/uL Normal 4.00-10.60 [facility] Comment on above: Performed By: #### L [id number] ####[facility] ([facility])[address] [place] [address] COMPREHENSIVE METABOLIC PANE Mynor 03-29-2024 Albumin [Mass/Vol] 3.7 g/dL Normal 3.5-5.7 [facility] Comment on above: Performed By: #### L [id number] ####[facility] ([facility])[address] [place] [address] ALP [Catalytic activity/Vol] 34 U/L Normal 34-104 [facility] Comment on above: Performed By: #### L [id number] ####[facility] ([facility])[address] [place] [address] ALT [Catalytic activity/Vol] 24 U/L Normal 7-52 [facility] Comment on above: Performed By: #### L [id number] ####[facility] ([facility])[address] [place] [address] Anion gap [Moles/Vol] 10 mmol/L Normal 7-20 [facility] Comment on above: Performed By: #### L [id number] ####[facility] ([facility])[address] [place] [address] AST [Catalytic activity/Vol] 31 U/L Normal 13-39 [facility] Comment on above: Performed By: #### L [id number] ####[facility] ([facility])[address] [place] [address] Bilirubin [Mass/Vol] 0.7 mg/dL Normal 0.3-1.0 [facility] Comment on above: Performed By: #### L [id number] ####[facility] ([facility])[address] [place] [address] Calcium [Mass/Vol] 9.1 mg/dL Normal 8.6-10.3 [facility] Comment on above: Performed By: #### L [id number] ####[facility] ([facility])[address] [place] [address] Chloride [Moles/Vol] 105 mmol/L Normal 98-107 [facility] Comment on above: Performed By: #### L [id number] ####[facility] ([facility])[address] [place] [address] CO2 [Moles/Vol] 30 mmol/L Normal 21-31 [facility] Comment on above: Performed By: #### L [id number] ####[facility] ([facility])[address] [place] [address] Creatinine [Mass/Vol] 0.76 mg/dL Normal 0.60-1.20 [facility] Comment on above: Performed By: #### L [id number] ####[facility] ([facility])[address] [place] [address] GLOMERULAR FILTRATION RATE ML/MIN/1.73 SQ M.PREDICTED 85.3 mL/min/1.73m*2 Normal >60.0 [facility] Comment on above: Result Comment: The [facility]???s estimated glomerular filtration rate (eGFR) will [...] of individuals. Performed By: #### L [id number] ####[facility] ([facility])[address] [place] [address] Glucose [Mass/Vol] 100 mg/dL Normal 70-100 [facility] Comment on above: Performed By: #### L [id number] ####[facility] ([facility])[address] [place] [address] Potassium [Moles/Vol] 4.8 mmol/L Normal 3.5-5.1 [facility] Comment on above: Performed By: #### L [id number] ####[facility] ([facility])[address] [place] [address] Protein [Mass/Vol] 6.0 g/dL Normal 6.0-8.3 [facility] Comment on above: Performed By: #### L [id number] ####[facility] ([facility])[address] [place] [address] Sodium [Moles/Vol] 140 mmol/L Normal 136-145 [facility] Comment on above: Performed By: #### L [id number] ####[facility] ([facility])[address] [place] [address] Urea nitrogen [Mass/Vol] 16 mg/dL Normal 7-25 [facility] Comment on above: Performed By: #### L [id number] ####[facility] ([facility])[address] [place] [address] UREA NITROGEN/CREATININE (MASS RATIO) IN SER/PLAS 21.1 [facility] Comment on above: Performed By: #### L [id number] ####[facility] ([facility])[address] [place] [address] HPon 03-29-2024 HP H&P reviewed. The patient was examined and there are no changes to the H&P. Jess Bacon is a 68 y.o. female with no known past medical history, no medications at home presented to the hospital due to elevated troponin the patient initially went to [facility] due to symptoms of abdominal pain, nausea vomiting diarrhea up to 8 times a day, watery consistency, referred to [facility] for NSTEMI. Lexiscan Myocardial Perfusion Stress Tests is positive at the inferolateral section. Patient will undergo diagnostic CORS. [facility] 30on 03-28-2024 30 The patient is Moderately Stable - Low risk of patient condition declining or worsening The patient's goals for the shift include comfort, rest The clinical goals for the shift include stable vitals, comfort [facility] 30 Daily Case Managemen t Update [...] Recommendations: Home OT Recommendations: Home New Consults: [facility] 30 The patient is Moderately Stable [...] difficulty Respiratory therapy support as indicated Normal [facility] CBCon 03-28-2024 Erythrocyte distribution width (RBC) [Ratio] 13.7 % Normal 11.5-15.0 [facility] Comment on above: Performed By: #### L [id number] ####[facility] ([facility])[address] [place] [address] ERYTHROCYTE MEAN CORPUSCULAR HEMOGLOBIN CONCENTRATION (G/DL) BY AUTOMATED 32.3 g/dL Normal 32.0-35.0 [facility] Comment on above: Performed By: #### L [id number] ####[facility] ([facility])[address] [place] [address] Hematocrit (Bld) [Volume fraction] 40.3 % Normal 36.0-48.0 [facility] Comment on above: Performed By: #### L [id number] ####[facility] ([facility])[address] [place] [address] Hemoglobin (Bld) [Mass/Vol] 13.0 g/dL Normal 12.0-15.0 [facility] Comment on above: Performed By: #### L [id number] ####[facility] ([facility])[address] [place] [address] MCH (RBC) [Entitic mass] 28.8 pg Normal 27.0-33.0 [facility] Comment on above: Performed By: #### L [id number] ####[facility] ([facility])[address] [place] [address] MCV (RBC) [Entitic vol] 89.2 fL Normal 82.0-98.0 [facility] Comment on above: Performed By: #### L [id number] ####[facility] ([facility])[address] [place] [address] PLATELETS (10*3/UL) IN BLOOD AUTOMATED COUNT 179 10*3/uL Normal 150-400 [facility] Comment on above: Performed By: #### L [id number] ####[facility] ([facility])[address] [place] [address] RBC (Bld) [#/Vol] 4.52 10*6/uL Normal 3.80-5.00 [facility] Comment on above: Performed By: #### L [id number] ####[facility] ([facility])[address] [place] [address] WBC (Bld) [#/Vol] 6.25 10*3/uL Normal 4.00-10.60 [facility] Comment on above: Performed By: #### L [id number] ####[facility] ([facility])[address] [place] [address] COMPREHENSIVE METABOLIC PANE Mynor 03-28-2024 Albumin [Mass/Vol] 3.5 g/dL Normal 3.5-5.7 [facility] Comment on above: Performed By: #### L [id number] ####[facility] ([facility])[address] [place] [address] ALP [Catalytic activity/Vol] 32 U/L Low 34-104 [facility] Comment on above: Performed By: #### L [id number] ####[facility] ([facility])[address] [place] [address] ALT [Catalytic activity/Vol] 13 U/L Normal 7-52 [facility] Comment on above: Performed By: #### L [id number] ####[facility] ([facility])[address] [place] [address] Anion gap [Moles/Vol] 9 mmol/L Normal 7-20 [facility] Comment on above: Performed By: #### L [id number] ####[facility] ([facility])[address] [place] [address] AST [Catalytic activity/Vol] 16 U/L Normal 13-39 [facility] Comment on above: Performed By: #### L [id number] ####[facility] ([facility])[address] [place] [address] Bilirubin [Mass/Vol] 0.6 mg/dL Normal 0.3-1.0 [facility] Comment on above: Performed By: #### L [id number] ####[facility] ([facility])[address] [place] [address] Calcium [Mass/Vol] 8.7 mg/dL Normal 8.6-10.3 [facility] Comment on above: Performed By: #### L [id number] ####[facility] ([facility])[address] [place] [address] Chloride [Moles/Vol] 106 mmol/L Normal 98-107 [facility] Comment on above: Performed By: #### L [id number] ####[facility] ([facility])[address] [place] [address] CO2 [Moles/Vol] 29 mmol/L Normal 21-31 [facility] Comment on above: Performed By: #### L [id number] ####[facility] ([facility])[address] [place] [address] Creatinine [Mass/Vol] 0.71 mg/dL Normal 0.60-1.20 [facility] Comment on above: Performed By: #### L [id number] ####[facility] ([facility])[address] [place] [address] GLOMERULAR FILTRATION RATE ML/MIN/1.73 SQ M.PREDICTED 92.6 mL/min/1.73m*2 Normal >60.0 [facility] Comment on above: Result Comment: The [facility]???s estimated glomerular filtration rate (eGFR) will [...] of individuals. Performed By: #### L [id number] ####[facility] ([facility])[address] [place] [address] Glucose [Mass/Vol] 92 mg/dL Normal 70-100 [facility] Comment on above: Performed By: #### L [id number] ####[facility] ([facility])[address] [place] [address] Potassium [Moles/Vol] 4.3 mmol/L Normal 3.5-5.1 [facility] Comment on above: Performed By: #### L [id number] ####[facility] ([facility])[address] [place] [address] Protein [Mass/Vol] 5.6 g/dL Low 6.0-8.3 [facility] Comment on above: Performed By: #### L [id number] ####[facility] ([facility])[address] [place] [address] Sodium [Moles/Vol] 140 mmol/L Normal 136-145 [facility] Comment on above: Performed By: #### L [id number] ####[facility] ([facility])[address] [place] [address] Urea nitrogen [Mass/Vol] 17 mg/dL Normal 7-25 [facility] Comment on above: Performed By: #### L [id number] ####[facility] ([facility])[address] [place] [address] UREA NITROGEN/CREATININE (MASS RATIO) IN SER/PLAS 23.9 Normal [facility] Comment on above: Performed By: #### L [id number] ####[facility] ([facility])[address] [place] [address] Prep for Procedureon 024 Prep for Procedure [id number] Mary Bacon 1955 F Date Provider Department Center 03/28/2024 [facility] No family history on file Normal [facility] TROPONIN Ion 03-28-2024 Troponin I.cardiac [Mass/Vol] 0.62 ng/mL Critically high 0.00-0.04 [facility] Comment on above: Result Comment: M-CO EVIOUS CRITICAL RESULT Previous result verified on 03/28/2024 0018 on specimen/case [id number] called with component Troponin I for procedure Troponin I with value 0.99 ng/mL. Performed By: #### L [id number] ####[facility] ([facility])[address] [place] [address] 30on 03-27-2024 30 Daily Case Managemen t Update Multidisciplinary rounds have been completed. Barriers to Discharge et per Progress Note/s: Original DA from [facility] on 03-25 for NSTEMI. Hep gtt. [...] OT? Answer: discharge recommendations 03/26/24 1654 Normal [facility] 30 The patient is Moderately Stable - Low risk of patient condition declining or worsening The patient's goals for the shift include complete testing The clinical goals for the shift include vss Over the shift, the patient did not make progress toward the following goals. Barriers to progression include . Recommendations to address these barriers include . Normal [facility] ANTI-XA (HEPARIN LEVEL)on HEPARIN UNFRACTIONATED (U/ML) IN PPP BY CHROMOGENIC METHOD 0.37 IU/mL Normal 0.3-0.7 [facility] Comment on above: Order Comment: Check anti-Xa level every 6 hours while on heparin infusion, or per protocol. Result Comment: [place] roxaban and Apixaban will interfere with the anti Xa assay used to monitor UFH and LMWH. Performed By: #### L [id number] #### [facility] ([facility]) [address] [place] [address] CBCon 03-27-2024 Erythrocyte distribution width (RBC) [Ratio] 13.7 % Normal 11.5-15.0 [facility] Comment on above: Performed By: #### L [id number] #### [facility] ([facility]) [address] [place] [address] ERYTHROCYTE MEAN CORPUSCULAR HEMOGLOBIN CONCENTRATION (G/DL) BY AUTOMATED 32.4 g/dL Normal 32.0-35.0 [facility] Comment on above: Performed By: #### L [id number] #### [facility] ([facility]) [address] [place] [address] Hematocrit (Bld) [Volume fraction] 41.0 % Normal 36.0-48.0 [facility] Comment on above: Performed By: #### L [id number] #### [facility] ([facility]) [address] [place] [address] Hemoglobin (Bld) [Mass/Vol] 13.3 g/dL Normal 12.0-15.0 [facility] Comment on above: Performed By: #### L [id number] #### [facility] ([facility]) [address] [place] [address] MCH (RBC) [Entitic mass] 28.5 pg Normal 27.0-33.0 [facility] Comment on above: Performed By: #### L [id number] #### [facility] ([facility]) [address] [place] [address] MCV (RBC) [Entitic vol] 88.0 fL Normal 82.0-98.0 [facility] Comment on above: Performed By: #### L [id number] #### [facility] ([facility]) [address] [place] [address] PLATELETS (10*3/UL) IN BLOOD AUTOMATED COUNT 182 10*3/uL Normal 150-400 [facility] Comment on above: Performed By: #### L [id number] #### [facility] ([facility]) [address] [place] [address] RBC (Bld) [#/Vol] 4.66 10*6/uL Normal 3.80-5.00 [facility] Comment on above: Performed By: #### L [id number] #### [facility] ([facility]) [address] [place] [address] WBC (Bld) [#/Vol] 5.82 10*3/uL Normal 4.00-10.60 [facility] Comment on above: Performed By: #### L [id number] #### [facility] ([facility]) [address] [place] [address] COMPREHENSIVE METABOLIC PANE Mynor 03-27-2024 Albumin [Mass/Vol] 3.4 g/dL Low 3.5-5.7 [facility] Comment on above: Performed By: #### L [id number] #### [facility] ([facility]) [address] [place] [address] ALP [Catalytic activity/Vol] 33 U/L Low 34-104 [facility] Comment on above: Performed By: #### L [id number] #### [facility] ([facility]) [address] [place] [address] ALT [Catalytic activity/Vol] 13 U/L Normal 7-52 [facility] Comment on above: Performed By: #### L [id number] #### [facility] ([facility]) [address] [place] [address] Anion gap [Moles/Vol] 11 mmol/L Normal 7-20 [facility] Comment on above: Performed By: #### L [id number] #### [facility] ([facility]) [address] [place] [address] AST [Catalytic activity/Vol] 18 U/L Normal 13-39 [facility] Comment on above: Performed By: #### L [id number] #### [facility] ([facility]) [address] [place] [address] Bilirubin [Mass/Vol] 0.4 mg/dL Normal 0.3-1.0 [facility] Comment on above: Performed By: #### L [id number] #### [facility] ([facility] [address] [place] [address] Calcium [Mass/Vol] 8.6 mg/dL Normal 8.6-10.3 [facility] Comment on above: Performed By: #### L [id number] #### [facility] ([facility] [address] [place] [address] Chloride [Moles/Vol] 107 mmol/L Normal 98-107 [facility] Comment on above: Performed By: #### L [id number] #### [facility] ([facility]) [address] [place] [address] CO2 [Moles/Vol] 28 mmol/L Normal 21-31 [facility] Comment on above: Performed By: #### L [id number] #### [facility] ([facility]) [address] [place] [address] Creatinine [Mass/Vol] 0.69 mg/dL Normal 0.60-1.20 [facility] Comment on above: Performed By: #### L [id number] #### [facility] ([facility]) [address] [place] [address] GLOMERULAR FILTRATION RATE ML/MIN/1.73 SQ M.PREDICTED 94.5 mL/min/1.73m*2 Normal >60.0 [facility] Comment on above: Result Comment: The [facility]???s estimated glomerular filtration rate (eGFR) will [...] individuals. Performed By: #### L [id number] #### [facility] ([facility]) [address] [place] [address] Glucose [Mass/Vol] 92 mg/dL Normal 70-100 [facility] Comment on above: Performed By: #### L [id number] #### [facility] ([facility]) [address] [place] [address] Potassium [Moles/Vol] 4.2 mmol/L Normal 3.5-5.1 [facility] Comment on above: Performed By: #### L [id number] #### [facility] ([facility]) [address] [place] [address] Protein [Mass/Vol] 5.4 g/dL Low 6.0-8.3 [facility] Comment on above: Performed By: #### L [id number] #### [facility] ([facility]) [address] [place] [address] Sodium [Moles/Vol] 142 mmol/L Normal 136-145 [facility] Comment on above: Performed By: #### L [id number] #### [facility] ([facility]) [address] [place] [address] Urea nitrogen [Mass/Vol] 16 mg/dL Normal 7-25 [facility] Comment on above: Performed By: #### L [id number] #### [facility] ([facility]) [address] [place] [address] UREA NITROGEN/CREATININE (MASS RATIO) IN SER/PLAS 23.2 Normal [facility] Comment on above: Performed By: #### L [id number] #### [facility] ([facility]) [address] [place] [address] CONSULTon 03-27-2024 CONSULT -- Attestation signed by [...] PMHx. She initially presented to [facility] with abdominal pain, nausea/vomiting, and diarrhea, [...] 6.1 B12/Folate/Iron studies: No results found for: [id number] , FOLATE , IRON , TIBC , UIBC , IRON (more content not included)... Normal [facility] TROPONIN Ion 03-27-2024 Troponin I.cardiac [Mass/Vol] 0.99 ng/mL Critically high 0.00-0.04 [facility] Comment on above: Result Comment: M-CO EVIOUS CRITICAL RESULT Previous result verified on 03/27/2024 1708 on specimen/case [id number] called with component Troponin I for procedure Troponin I with value 0.83 ng/mL. Performed By: #### L [id number] ####[facility] ([facility])[address] [place] [address] Troponin I.cardiac [Mass/Vol] 0.83 ng/mL Critically high 0.00-0.04 [facility] Comment on above: Result Comment: M-CO EVIOUS CRITICAL RESULT Previous result verified on 03/27/2024 0148 on specimen/case [id number] called with component Troponin I for procedure Troponin I with value 2.59 ng/mL. Performed By: #### L [id number] #### [facility] ([facility]) [address] [place] [address] Troponin I.cardiac [Mass/Vol] 2.59 ng/mL Critically high 0.00-0.04 [facility] Comment on above: Result Comment: M-CO EVIOUS CRITICAL RESULT Previous result verified on 03/26/2024 1931 on specimen/case [id number] called with component Troponin I for procedure Troponin I with value 2.44 ng/mL. Performed By: #### L [id number] #### [facility] ([facility]) [address] [place] [address] 30on 03-26-2024 30 The patient is Moderately Stable - Low risk of patient condition declining or worsening The patient's goals for the shift include feel better The clinical goals for the shift include stable vitals Over the shift, the patient did not make progress toward the following goals. Barriers to progression include . Recommendations to address these barriers include . Normal [facility] 30 The patient is Moderately Stable - Low risk of patient condition declining or worsening The patient's goals for the shift include comfort The clinical goals for the shift include stable vitals Normal [facility] ANTI-XA (HEPARIN LEVEL)on HEPARIN UNFRACTIONATED (U/ML) IN PPP BY CHROMOGENIC METHOD 0.52 IU/mL Normal 0.3-0.7 [facility] Comment on above: Order Comment: Check anti-Xa level every 6 hours while on heparin infusion, or per protocol. Result Comment: [place]at[place] roxaban and Apixaban will interfere with the anti Xa assay used to monitor UFH and LMWH. Performed By: #### L [id number] #### [facility] ([facility]) [address] [place] [address] HEPARIN UNFRACTIONATED (U/ML) IN PPP BY CHROMOGENIC METHOD 0.65 IU/mL Normal 0.3-0.7 [facility] Comment on above: Order Comment: Check anti-Xa level every 6 hours while on heparin infusion, or per protocol. Result Comment: Cassi roxaban and Apixaban will interfere with the anti Xa assay used to monitor UFH and LMWH. Performed By: #### L [id number] #### [facility] ([facility]) [address] [place] [address] HEPARIN UNFRACTIONATED (U/ML) IN PPP BY CHROMOGENIC METHOD 0.80 IU/mL High 0.3-0.7 [facility] Comment on above: Order Comment: Check anti-Xa level every 6 hours while on heparin infusion, or per protocol. Result Comment: [place] roxaban and Apixaban will interfere with the anti Xa assay used to monitor UFH and LMWH. Performed By: #### L [id number] #### [facility] ([facility]) [address] [place] [address] CBCon 03-26-2024 Erythrocyte distribution width (RBC) [Ratio] 13.8 % Normal 11.5-15.0 [facility] Comment on above: Performed By: #### L [id number] #### [facility] ([facility]) [address] [place] [address] ERYTHROCYTE MEAN CORPUSCULAR HEMOGLOBIN CONCENTRATION (G/DL) BY AUTOMATED 33.1 g/dL Normal 32.0-35.0 [facility] Comment on above: Performed By: #### L [id number] #### [facility] ([facility]) [address] [place] [address] Hematocrit (Bld) [Volume fraction] 40.8 % Normal 36.0-48.0 [facility] Comment on above: Performed By: #### L [id number] #### [facility] ([facility]) [address] [place] [address] Hemoglobin (Bld) [Mass/Vol] 13.5 g/dL Normal 12.0-15.0 [facility] Comment on above: Performed By: #### L [id number] #### [facility] ([facility]) [address] [place] [address] MCH (RBC) [Entitic mass] 29.0 pg Normal 27.0-33.0 [facility] Comment on above: Performed By: #### L [id number] #### [facility] ([facility]) [address] [place] [address] MCV (RBC) [Entitic vol] 87.6 fL Normal 82.0-98.0 [facility] Comment on above: Performed By: #### L [id number] #### [facility] ([facility]) [address] [place] [address] PLATELETS (10*3/UL) IN BLOOD AUTOMATED COUNT 179 10*3/uL Normal 150-400 [facility] Comment on above: Performed By: #### L [id number] #### [facility] ([facility]) [address] [place] [address] RBC (Bld) [#/Vol] 4.66 10*6/uL Normal 3.80-5.00 [facility] Comment on above: Performed By: #### L [id number] #### [facility] ([facility]) [address] [place] [address] WBC (Bld) [#/Vol] 7.11 10*3/uL Normal 4.00-10.60 [facility] Comment on above: Performed By: #### L [id number] #### [facility] ([facility]) [address] [place] [address] CONSULTon 03-26-2024 CONSULT -- Attestation signed by [...] elevated troponin the patient initially went to [facility] due to symptoms of abdominal pain, [...] Value Ventricular Rate 67 Atrial Rate 67 CO Interval 142 QRS DURATION 70 QT Interval 448 QTC CALCULATION(BAZETT) 473 P [place] 83 R-[place]ak[place] -5 T Wave [place] -22 Impression Normal sinus rhythm Possible Inferior [...] cardiology will follow along Sudhir Gayle MD Casting Assistant - PGY4 [facility] Normal [facility] HEMOGLOBIN A1Con 03-26-2024 Glucose [Mass/Vol] 123 mg/dL [facility] Comment on above: Performed By: #### L [id number] #### [facility] ([facility]) [address] [place] [address] HbA1c (Bld) [Mass fraction] 5.9 % Normal 4.0-6.0 [facility] Comment on above: Performed By: #### L [id number] #### [facility] ([facility]) [address] [place] [address] HPon 03-26-2024 HP -- Attestation signed by [...] elevated troponin the patient initially went to [facility] due to symptoms of abdominal pain, [...] Value Ventricular Rate 67 Atrial Rate 67 CO Interval 142 QRS DURATION 70 QT Interval 448 QTC CALCULATION(BAZETT) 473 P [place] 83 R-[place] -5 T Wave [place] -22 Impression Normal sinus rhythm Possible Inferior [...] cardiology will follow along Sudhir Gayle MD Casting Assistant - PGY4 [facility] Normal [facility] LIPID PANELon 03-26-2024 CHOL/HDL 4.0 mg/dL Normal [facility] Comment on above: Performed By: #### L [id number] ####[facility] ([facility])[address] [place] [address] Cholesterol [Mass/Vol] 135 mg/dL Normal 120-200 [facility] Comment on above: Performed By: #### L [id number] ####[facility] ([facility])[address] [place] [address] Magnesium [Mass/Vol] 55 mg/dL Normal 40-149 [facility] Comment on above: Result Comment: TRIG LYCERIDE REFERENCE RANGE: 20 YEARS AND OLDER CARDIOVASCULAR RISK LESS THAN 150 mg/dL LOW RISK 150 TO 199 mg/dL BORDERLINE RISK 200 mg/dL AND GREATER HIGH RISK Performed By: #### L [id number] ####[facility] ([facility])[address] [facility] [address] Magnesium [Mass/Vol] 90 mg/dL Normal 0-160 [facility] Comment on above: Performed By: #### L [id number] ####[facility] ([facility])[address] [facility] [address] Magnesium [Mass/Vol] 34 mg/dL Normal 23-92 [facility] Comment on above: Performed By: #### L [id number] ####[facility] ([facility])[address] [place] [address] NON HDL CHOL. (LDL+VLDL) 101 Normal [facility] Comment on above: Performed By: #### L [id number] ####[facility] ([facility] [place] [address] TOTAL VLDL-C 11 mg/dL Normal 0-40 [facility] Comment on above: Performed By: #### L [id number] ####[facility] ([facility])[address] [place] [address] TROPONIN Ion 03-26-2024 Troponin I.cardiac [Mass/Vol] 2.44 ng/mL Critically high 0.00-0.04 [facility] Comment on above: Result Comment: M-CO EVIOUS CRITICAL RESULT Previous result verified on 03/26/2024 0052 on specimen/case 24H- called with component Troponin I for procedure Troponin I with value 2.77 ng/mL. Performed By: #### L [id number] #### [facility] ([facility]) [address] [place] [address] Troponin I.cardiac [Mass/Vol] 2.07 ng/mL Critically high 0.00-0.04 [facility] Comment on above: Result Comment: M-CO EVIOUS CRITICAL RESULT Previous result verified on 03/26/202451 on specimen/case 24H- called with component Troponin I for procedure Troponin I with value 2.77 ng/mL. Performed By: #### L [id number] ####[facility] ([facility])[address] [address] Troponin I.cardiac [Mass/Vol] 3.34 ng/mL Critically high 0.00-0.04 [facility] Comment on above: Result Comment: M-CO EVIOUS CRITICAL RESULT Previous result verified on 03/26/202451 on specimen/case 24H- called with component Troponin I for procedure Troponin I with value 2.77 ng/mL. Performed By: #### L [id number] #### [facility] ([facility]) [address] [place] [address] URINALYSISon 03-26-2024 BILIRUBIN, TOTAL PRESENCE IN URINE Negative Normal Negative [facility] Comment on above: Performed By: #### L [id number] #### [facility] ([facility]) [address] [place] [address] Clarity (U) Slightly Cloudy Abnormal Clear [facility] Comment on above: Performed By: #### L [id number] #### [facility] ([facility]) [address] [place] [address] Color (U) Yellow Normal Yellow [facility] Comment on above: Performed By: #### L [id number] #### [facility] ([facility]) [address] [facility] [address] Glucose (U) [Mass/Vol] Negative Normal Negative [facility] Comment on above: Performed By: #### L [id number] #### [facility] ([facility]) [address] [place] [address] HEMOGLOBIN PRESENCE IN URINE Negative Normal Negative [facility] Comment on above: Performed By: #### L [id number] #### [facility] ([facility]) [address] [place] [address] Ketones Ql (U) 20 mg/dL Abnormal Negative [facility] Comment on above: Performed By: #### L [id number] #### [facility] ([facility]) [address] [place] [address] LEUKOCYTE ESTERASE PRESENCE IN URINE BY TEST STRIP Large Abnormal Negative [facility] Comment on above: Performed By: #### L [id number] #### [facility] ([facility]) [address] [place] [address] NITRITE PRESENCE IN URINE Negative Normal Negative [facility] Comment on above: Performed By: #### L [id number] #### [facility] ([facility]) [address] [place] [address] pH (U) 5.0 [pH] Normal 5.0-8.0 [facility] Comment on above: Performed By: #### L [id number] #### [facility] ([facility]) [address] [place] [address] Protein (U) [Mass/Vol] Negative Normal Negative [facility] Comment on above: Performed By: #### L [id number] #### [facility] ([facility]) [address] [place] [address] Specific gravity (U) [Rel density] 1.025 High 1.015-1.020 [facility] Comment on above: Performed By: #### L [id number] #### [facility] ([facility]) [address] [place] [address] URINALYSIS MICROSCOPICon CASTS IN URINE Normal [facility] Comment on above: Performed By: #### L [id number] #### [facility] ([facility]) [address] [place] [address] CRYSTALS IN URINE Normal [facility] Comment on above: Performed By: #### L [id number] #### [facility] ([facility]) [address] [place] [address] MUCUS (#/HPF) IN URINE SEDIMENT Moderate Abnormal None Seen, Occasional, Few [facility] Comment on above: Performed By: #### L [id number] #### [facility] ([facility]) [address] [place] [address] RBC (#/HPF) IN URINE SEDIMENT 0-2 Abnormal None Seen [facility] Comment on above: Performed By: #### L [id number] #### [facility] ([facility]) [address] [place] [address] SQUAMOUS EPITHELIAL CELLS (#/HPF) IN URINE SEDIMENT Many Abnormal None Seen, Occasional [facility] Comment on above: Performed By: #### L [id number] #### [facility] ([facility]) [address] [place] [address] WBC (LEUKOCYTE) (#/HPF) IN URINE SEDIMENT 21-50 Abnormal None Seen [facility] Comment on above: Performed By: #### L [id number] #### [facility] ([facility]) [address] [place] [address] APTTon 03-25-2024 ACTIVATED PARTIAL THROMBOPLASTIN TIME IN PPP BY COAGULATION ASSAY 24.4 Seconds Low 25.0-35.0 [facility] Comment on above: Order Comment: Basel ine aPTT before initiating heparin infusion. Result Comment: Clin ical significance of the APTT is questionable in the presence of heparin. Performed By: #### L [id number] ####[facility] ([facility] [place] [address] B-TYPE NATRIURETIC PEPTIDEon 03-25-2024 Natriuretic peptide B (Bld) [Mass/Vol] 267 pg/mL High 0-100 [facility] Comment on above: Performed By: #### L [id number] ####[facility] ([facility])[address] [place] [address] BASIC METABOLIC PANELon - 0-2023 Anion gap [Moles/Vol] 12 mmol/L Normal 7-20 [facility] Comment on above: Performed By: #### L [id number] ####[facility] ([facility]AKER)[address] [place] [address] Calcium [Mass/Vol] 8.6 mg/dL Normal 8.6-10.3 [facility] Comment on above: Performed By: #### L [id number] ####[facility] ([facility]ER)[address] [place] [address] Chloride [Moles/Vol] 107 mmol/L Normal 98-107 [facility] Comment on above: Performed By: #### L [id number] ####[facility] ([facility]ER)[address] [place] [address] CO2 [Moles/Vol] 24 mmol/L Normal 21-31 [facility] Comment on above: Performed By: #### L [id number] ####[facility] ([facility])[address] [place] [address] Creatinine [Mass/Vol] 0.68 mg/dL Normal 0.60-1.20 [facility] Comment on above: Performed By: #### L [id number] ####[facility] ([facility] [place] [address] GLOMERULAR FILTRATION RATE ML/MIN/1.73 SQ M.PREDICTED 94.8 mL/min/1.73m*2 Normal >60.0 [facility] Comment on above: Result Comment: The [facility]???s estimated glomerular filtration rate (eGFR) will [...] of individuals. Performed By: #### L [id number] ####[facility] ([facility]ER)[address] [place] [address] Glucose [Mass/Vol] 105 mg/dL High 70-100 [facility] Comment on above: Performed By: #### L [id number] ####[facility] ([facility])[address] [place] [address] Potassium [Moles/Vol] 3.8 mmol/L Normal 3.5-5.1 [facility] Comment on above: Performed By: #### L [id number] ####[facility] ([facility])[address] [place] [address] Sodium [Moles/Vol] 139 mmol/L Normal 136-145 [facility] Comment on above: Performed By: #### L [id number] ####[facility] ([facility])[address] [place] [address] Urea nitrogen [Mass/Vol] 12 mg/dL Normal 7-25 [facility] Comment on above: Performed By: #### L [id number] ####[facility] ([facility] [facility] [place] [address] UREA NITROGEN/CREATININE (MASS RATIO) IN SER/PLAS 17.6 Normal [facility] Comment on above: Performed By: #### L [id number] ####[facility] ([facility])[address] [place] [address] CBC WITH AUTO DIFFERENTIALon 03-25-2024 Basophils (Bld) [#/Vol] 0.05 10*3/uL Normal 0.00-0.20 [facility] Comment on above: Performed By: #### L [id number] ####[facility] ([facility])[address] [place] [address] Basophils/100 WBC (Bld) 0.6 % Normal 0.0-1.0 [facility] Comment on above: Performed By: #### L [id number] ####[facility] ([facility])[address] [place] [address] Eosinophils (Bld) [#/Vol] 0.15 10*3/uL Normal 0.00-0.50 [facility] Comment on above: Performed By: #### L [id number] ####[facility] ([facility])[address] [place] [address] Eosinophils/100 WBC (Bld) 1.8 % Normal 0.0-6.0 [facility] Comment on above: Performed By: #### L [id number] ####[facility] ([facility])[address] [place] [address] Erythrocyte distribution width (RBC) [Ratio] 13.8 % Normal 11.5-15.0 [facility] Comment on above: Performed By: #### L [id number] ####[facility] ([facility])[address] [place] [address] ERYTHROCYTE MEAN CORPUSCULAR HEMOGLOBIN CONCENTRATION (G/DL) BY AUTOMATED 31.8 g/dL Low 32.0-35.0 [facility] Comment on above: Performed By: #### L [id number] ####[facility] [place] [address] Hematocrit (Bld) [Volume fraction] 44.6 % Normal 36.0-48.0 [facility] Comment on above: Performed By: #### L [id number] ####[facility] ([facility])[address] [place] [address] Hemoglobin (Bld) [Mass/Vol] 14.2 g/dL Normal 12.0-15.0 [facility] Comment on above: Performed By: #### L [id number] ####[facility] ([facility])[address] [place] [address] Immature granulocytes (Bld) [#/Vol] 0.03 10*3/uL Normal 0.00-0.20 [facility] Comment on above: Performed By: #### L [id number] ####[facility] ([facility])[address] [place] [address] Immature granulocytes/100 WBC (Bld) 0.4 % Normal 0.0-1.0 [facility] Comment on above: Performed By: #### L [id number] ####[facility] ([facility])[address] [place] [address] Lymphocytes (Bld) [#/Vol] 1.52 10*3/uL Normal 1.20-4.00 [facility] Comment on above: Performed By: #### L [id number] ####[facility] ([facility])[address] [place] [address] Lymphocytes/100 WBC (Bld) 18.4 % Low 20.0-45.0 [facility] Comment on above: Performed By: #### L [id number] ####[facility] ([facility])[address] [place] [address] MCH (RBC) [Entitic mass] 29.2 pg Normal 27.0-33.0 [facility] Comment on above: Performed By: #### L [id number] ####[facility] ([facility])[address] [place] [address] MCV (RBC) [Entitic vol] 91.8 fL Normal 82.0-98.0 [facility] Comment on above: Performed By: #### L [id number] ####[facility] ([facility])[address] [place] [address] Monocytes (Bld) [#/Vol] 0.58 10*3/uL Normal 0.10-1.00 [facility] Comment on above: Performed By: #### L [id number] ####[facility] ([facility])[address] [place] [address] Monocytes/100 WBC (Bld) 7.0 % Normal 5.0-12.0 [facility] Comment on above: Performed By: #### L [id number] ####[facility] ([facility])[address] [place] [address] Neutrophils (Bld) [#/Vol] 5.91 10*3/uL Normal 1.60-7.60 [facility] Comment on above: Performed By: #### L [id number] ####[facility] ([facility])[address] [place] [address] Neutrophils/100 WBC (Bld) 71.8 % Normal 40.0-72.0 [facility] Comment on above: Performed By: #### L [id number] ####[facility] ([facility])[address] [address] NRBC (PER 100 WBCS) BY AUTOMATED COUNT 0.0 % Normal 0 [facility] Comment on above: Performed By: #### L [id number] ####[facility] ([facility])[address] [address] PLATELETS (10*3/UL) IN BLOOD AUTOMATED COUNT 201 10*3/uL Normal 150-400 [facility] Comment on above: Performed By: #### L [id number] ####[facility] ([facility])[address] [place] [address] RBC (Bld) [#/Vol] 4.86 10*6/uL Normal 3.80-5.00 [facility] Comment on above: Performed By: #### L [id number] ####[facility] ([facility])[address] [address] WBC (Bld) [#/Vol] 8.24 10*3/uL Normal 4.00-10.60 [facility] Comment on above: Performed By: #### L [id number] ####[facility] ([facility])[address] [address] HEPATIC FUNCTION PANELon Albumin [Mass/Vol] 3.8 g/dL Normal 3.5-5.7 [facility] Comment on above: Performed By: #### L [id number] #### [facility] ([facility]) [address] [place] [address] ALP [Catalytic activity/Vol] 35 U/L Normal 34-104 [facility] Comment on above: Performed By: #### L [id number] #### [facility] ([facility]) [address] [place] [address] ALT [Catalytic activity/Vol] 21 U/L Normal 7-52 [facility] Comment on above: Performed By: #### L [id number] #### [facility] ([facility]) [address] [place] [address] AST [Catalytic activity/Vol] 32 U/L Normal 13-39 [facility] Comment on above: Performed By: #### L [id number] #### [facility] ([facility]) [address] [place] [address] Bilirubin [Mass/Vol] 0.8 mg/dL Normal 0.3-1.0 [facility] Comment on above: Performed By: #### L [id number] #### [facility] ([facility]) [address] [place] [address] Magnesium [Mass/Vol] 0.1 mg/dL Normal 0-0.2 [facility] Comment on above: Performed By: #### L [id number] #### [facility] ([facility]) [address] [place] [address] Protein [Mass/Vol] 6.1 g/dL Normal 6.0-8.3 [facility] Comment on above: Performed By: #### L [id number] #### [facility] ([facility]) [address] [place] [address] MAGNESIUMon 03-25-2024 Magnesium [Mass/Vol] 2.0 mg/dL Normal 1.9-2.7 [facility] Comment on above: Performed By: #### L [id number] ####[facility] ([facility])[address] [place] [address] PHOSPHORUSon 03-25-2024 Magnesium [Mass/Vol] 3.1 mg/dL Normal 2.5-5.0 [facility] Comment on above: Performed By: #### L [id number] ####[facility] ([facility])[address] [place] [address] PROTIME-INRon 03-25-2024 INR IN PPP BY COAGULATION ASSAY 1.11 High 0.90-1.10 [facility] Comment on above: Result Comment: ACCC [...] CHEST 1995;108:231S-246S. Performed By: #### L [id number] ####[facility] ([email or web address])[address] [place] [address] PROTHROMBIN TIME (PT) IN PPP BY COAGULATION ASSAY 14.3 Seconds Normal 12.3-14.8 [facility] Comment on above: Performed By: #### L [id number] ####[facility] ([email or web address])[address] [place] [address] TROPONIN Ion 03-25-2024 Troponin I.cardiac [Mass/Vol] 2.77 ng/mL Critically high 0.00-0.04 [facility] Comment on above: Result Comment: SANDY MARTINEZ INITIAL CRITICAL HIGH; RESPUN AND RETESTED Performed By: #### L [id number] #### [facility] ([facility]) [address] [place] [address] Family Medicine Office/Clini c Noteon 03-17-2024 Family [...] vac - Not Given Patient Refuses [facility] Comment on above: Result Comment: Elec tronically Signed By: Millie Florentino\.br\Date and Time Signed: 03/17/24 15:22 EDT Consenton 02-09-2024 Consent [id number]#1.0 0TIFF [facility] Ambulatory Visit Summaryon 0 02-08-2024 [...] Follow-Up Appointments 2023 1:00 PM EDT Where: [facility] [place] Normal [facility] Family Medicine Office/Clini c Noteon 02-08-2024 Family Medicine Office/Clinic Note HPI Staff Jess is a 68 year old female presenting for Pt went to urgent care in [place] 01/31 started on Amoxcillin Onset: 9 days [...] 5y-11y) vac - Not Given Patient Refuses [facility] Comment on above: Result Comment: Elec tronically Signed By: Millie Florentino\tyler\Date and Time Signed: 02/08/24 15:31 EDT Consultation Noteon 02-01-20 Consultation Note [id number]#1.00 TIFF [facility] Formson 02-01-2024 Forms [id number] 0TIFF [facility] Physician Referralon 024 Physician Referral [id number]#1.0 0TIFF Normal [facility] Ambulatory Visit Summaryon 0 12-17-2023 [...] Follow-Up Appointments 2023 1:00 PM EDT Where: [facility] [place] Normal [facility] Family Medicine Office/Clini c Noteon [...] does not want to go back to [place]. will refer to Dr. Dickerson in [place]. RTC 3 months. note provided to work no more than 8 hours per day and no vibrating tools Ordered: [facility] External Ambulatory Referral Body mass index [BMI] [...] - Not Given Patient Refuses Normal [facility] Comment on above: Result Comment: Elec tronically Signed By: Millie Florentino\.br\Date and Time Signed: 12/17/23 15:12 EDT Provider Letteron 12-17-2023 Provider Letter December 17, 2023 [address]ON [address] [place] [id number] : 1955 To Whom It May Concern, Jess may work no more than 8 hours per day. Please continue to not use vibrating hand tools. This will continue through December, January, and February 2024. If you have any questions please do not hesitate to contact my office. Date of Illness: From: December 2023 To: February 2024 Sincerely, [facility] [address] [address] [facility] Consultation Noteon 11-10-19 Consultation Note [id number]#1.0 0TIFF [facility] Family Medicine Office/Clini c Noteon 10-31-2023 Family Medicine Office/Clinic Note Chief Complaint diagnosed with bronchitis 10/25- not feeling better HPI Staff 67 year old female presents with bronchitis that is worsening, pain in ribs when coughing was seen at [facility] 10/25 and was diagnosed with bronchitis was given steroids- has 2 more days but does not feel any better History of Present Illness Reviewed and agree with above documented HPI by medical laboratory technicians. Portions of this record may have been created with voice recognition artificial intelligence software, specifically [employer], [employer] and or [employer]. Substitutions may have occurred due to the inherent limitations of voice recognition and artificial intelligence software. Patient is a 67-year-old female who presents to convenient care, for sinus congestion, sore throat, and a nonproductive cough. Patient states symptom has been going on for over 2-1/2 weeks, states this past Wednesday she was seen at an urgent care in [facility], states she was diagnosed with bronchitis was [...] at this time. 67-year-old female presents [facility] care, for acute frontal sinusitis and acute bronchitis, history of sinus infections and bronchitis, close to 3 weeks ago, has been taking zznz-jzx-jxnpidx medication without any relief, did appear ill but not septic, no respiratory distress or difficulty swallowing is noted. He was given a prescription of Zithromax, prefer no prescription for cough or prednisone at this time. Patient was instructed take rfqt-zok-rfkknfw ibuprofen Tylenol as needed for body aches, fevers, headaches. Drink plenty water stay hydrated. Given a work excuse note. Follow-up with primary care provider. 1. Acute frontal sinusitis (J01.10: Acute frontal sinusitis, unspecified) See above 2. Acute bronchitis (J20.9: Acute bronchitis, unspecified) See above Follow-up With When Contact Information Carlos BARRON, Millie Gallagher, JO, MED Additional Instructions: Patient Education Acute Bronchitis, Adult, Geaz-cg-Jqhl Sinus Infection, Adult, Fudw-ye-Okrm Problem List/Past Medical History Ongoing Acute bronchitis Acute frontal sinusitis Anxiety disorder Breast cancer screening by mammogram Dupuytrens contracture Ingrown right big toenail Lower extremity neuropathy Onychomycosis Osteoarthritis of lumbosacral spine Radiculopathy Right elbow pain Sore t (more content not included)... [facility] Comment on above: Result Comment: [...] ? Medicines that treat allergies (antihistamines). ? Rpnr-olu-tinjibs pain relievers. ? If caused by bacteria, your doctor may wait to see if you will get better without treatment. You may be given antibiotic medicine if you have: ? A very bad infection. ? A weak body defense system. ? If caused by growths in the nose, surgery may be needed. Follow these instructions at home: Medicines ? 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 ? Do not smoke. Avoid being around [...] follow-up visits (more content not included)... [facility] Patient Letter FTon [address] [facility] [address] [place] [address] October 29, 20[address]ESS [address]ON [address] [place] [id number] : 1955 Please excuse JESS BACON from work . Date and/or Time of Absence: From: 10/29/23 May return to work on: 11/01/23 Restrictions: None Comments: Please excuse due to an acute illness. Provider Signature: Phillip Nunez PA-C [address] [place] [address] [place] [address] [facility] Ambulatory Visit Summaryon 0 09-30-2023 Ambulatory Visit Summary JESS BACON :1955 Visit Date:09/30/2023 Ambulatory Visit Instructions Your Diagnosis Trigger ring finger of right hand Ingrown right big toenail BMI 22.0-22.9, adult Non-smoker Your Care Team Attending Physician - Millie Florentino Primary Care Physician - Millie Florentino This Is Your Medications List [facility] Prescription (Compression stockings) cholecalciferol (Vitamin D3 2000 [...] Follow-Up Appointments 2023 1:00 PM EDT Where: [facility] [place] Normal [facility] Medicine Office/Clini c Noteon 09-30-2023 Family Medicine Office/Clinic Note HPI Staff Jess is a 67 year old female presenting for 3 month follow up Pain characteristics: Pain location: Right elbow with Radiculopathy ([facility] 06/30/23 Medrol dose pack ordered) Intensity: 0 [...] Daily, # 30 tab(s), Refills(s) 0, Pharmacy: [facility] 14[facility], 158, cm, 09/30/23 11:26:00 EST, Height/Length Dosing, 55.1, kg, 09/30/23 11:26:00 EST, Weight Dosing methylPREDNISolone, = 1 packet(s), Oral, As Directed, as directed on package labeling, X 6 day(s), # 21 tab(s), Refills(s) 0, Pharmacy: [facility] 1429, 158, cm, 09/30/23 11:26:00 EST, Height/Length Dosing, 55.1, kg, 09/30/23 11:26:00 EST, Weight Dosing 2. Ingrown right big toenail (L60.0: Ingrowing nail) right big toe nail ingrown. will refer to Dr. Schultz Ordered: [facility] External Ambulatory Referral 3. BMI 22.0-22.9, adult (Z68.22: Body mass index [BMI] 22.0-22.9, adult) BMI education complete Ordered: meloxicam, 7.5 mg = 1 tab(s), Oral, Daily, # 30 tab(s), Refills(s) 0, Pharmacy: [facility]29, 158, cm, 09/30/23 11:26:00 EST, Height/Length Dosing, 55.1, kg, 09/30/23 11:26:00 EST, Weight Dosing methylPREDNISolone, = 1 packet(s), Oral, As Directed, as directed on package labeling, X 6 day(s), # 21 tab(s), Refills(s) 0, Pharmacy: [facility], 158, cm, 09/30/23 11:26:00 EST, Height/Length Dosing, 55.1, kg, 09/30/23 11:26:00 EST, Weight Dosing 4. Non-smoker (Z78.9: Other specified health status) continue not smoking Ordered: meloxicam, 7.5 mg = 1 tab(s), Oral, Daily, # 30 tab(s), Refills(s) 0, Pharmacy: [facility] 1429, 158, cm, 09/30/23 11:26:00 EST, Height/Length Dosing, 55.1, kg, 09/30/23 11:26:00 EST, Weight Dosing methylPREDNISolone, = 1 packet(s), Oral, As Directed, as directed on package labeling, X 6 day(s), # 21 tab(s), Refills(s) 0, Pharmacy: [facility] 1429, 158, cm, 09/30/23 11:26:00 EST, Height/Length Dosing, 55.1, kg, 09/30/23 11:26:00 EST, Weight Dosing Orders: escitalopram, 10 mg = 1 tab(s), Oral, Daily, X 90 day(s), # 90 tab(s), Refills(s) 3, Pharmacy: [id number], 157, cm, 04/23/23 13:50:00 EDT, Height/Length Dosing, [...] 3 refills, Not (more content not included)... [facility] Comment on above: Result Comment: Elec tronically Signed By: Millie Florentino\.br\Date and Time Signed: 09/30/23 11:46 EST Physician Referralon 024 Physician Referral [id number] 0TIFF [facility] Provider Letteron 09-30-2023 Provider Letter September 30, 2023 [place] [address] : 1955 To Whom It May Concern, [...] Restrictions: _ See Above Comments: _ Sincerely, [address] [address] [facility] Vital Signs Date Time Vital Sign Value Performing Clinician Facility 07-19-2024 15:52-0500 Blood Pressure Location Addy VELA [facility] 07-19-2024 15:52-0500 Diastolic blood pressure 58 mm[Hg] Addy VELA [facility] 07-19-2024 15:52-0500 Heart rate 72 /min Addy VELA [facility] 07-19-2024 15:52-0500 Respiratory rate 16 /min Addy VELA [facility] 07-19-2024 15:52-0500 Systolic blood pressure 122 mm[Hg] Addy VELA [facility] 05-27-2024 14:05-0400 Body height 156.21 cm MD Luisito Roth Work Phone: [facility] 05-27-2024 14:05-0400 Body mass index (BMI) [Ratio] 21.4 kg/m2 MD Luisito Roth Work Phone: [facility] 05-27-2024 14:05-0400 Body temperature 98.2 [degF] MD Luisito Roth Work Phone: [facility] 05-27-2024 14:05-0400 Body weight 52.16 kg MD Luisito Roth Work Phone: [facility] 05-27-2024 14:05-0400 Diastolic blood pressure 69 mm[Hg] MD Luisito Roth Work Phone: [facility] 05-27-2024 14:05-0400 Heart rate 56 /min MD Luisito Roth Work Phone: [facility] 05-27-2024 14:05-0400 SaO2% (BldA) [Mass fraction] 98 % MD Luisito Roth Work Phone: [facility] 05-27-2024 14:05-0400 Systolic blood pressure 128 mm[Hg] MD Luisito Roth Work Phone: [facility] 10-29-2023 13:26-0500 Blood Pressure Location PHILLIP NUNEZ [facility] 10-29-2023 13:26-0500 Body temperature 97.88 [degF] RUMFORD NUNEZ [facility] 10-29-2023 13:26-0500 Diastolic blood pressure 80 mm[Hg] RUMFORD NUNEZ [facility] 10-29-2023 13:26-0500 Heart rate 77 /min RUMFORD NUNEZ [facility] 10-29-2023 13:26-0500 SaO2% (BldA) [Mass fraction] 96 % [facility] 10-29-2023 13:26-0500 Systolic blood pressure 120 mm[Hg] [facility] Encounters Encounter Date Encounter Type Care Provider Facility Start: 08-31-2024 End: 08-31-2024 ambulatory Millie L Carlos Facility:[facility] [place] Start: 07-19-2024 End: 07-19-2024 ambulatory Addy VELA Facility: [place] Start: 07-19-2024 End: 07-19-2024 Patient encounter procedure Addy VELA [facility] [place] Start: 06-06-2024 End: 06-06-2024 ambulatory Millie L Carlos [facility] [place] Start: 06-01-2024 End: 06-01-2024 ambulatory Millie L Carlos Facility: [facility] [place] Start: 05-29-2024 End: 05-29-2024 ambulatory Millie L Carlos Facility:[facility] [place] Start: 05-27-2024 End: 05-27-2024 ambulatory MD Luisito Roth Work Phone: [facility] Work Phone: Start: 05-27-2024 End: 05-27-2024 Patient encounter procedure MD Luisito Roth Work Phone: [facility] Work Phone: Start: 05-12-2024 End: 05-12-2024 ambulatory Millie L Carlos Facility:[facility] [place] Start: 04-21-2024 End: 04-21-2024 ambulatory [facility] Start: 04-19-2024 End: 04-19-2024 ambulatory Millie L Carlos Facility:[facility] [place] Start: 04-12-2024 End: 04-12-2024 ambulatory Millie L Carlos [facility]: [facility] [place] Start: 04-06-2024 End: 04-06-2024 ambulatory MD Luisito Roth Facility: [facility] [place] Start: 03-31-2024 End: 05-01-2024 ambulatory MD Luisito Roth Facility:[id number] Start: 03-29-2024 ambulatory Millie L Carlos Facility: [facility] [place] Start: 03-28-2024 Evaluation and management of inpatient MAXIMINO CANCINO [facility] Start: 03-27-2024 [facility] Start: 03-26-2024 Evaluation and management of inpatient MAXIMINO CANCINO [facility] Start: 03-25-2024 [facility] Start: 03-25-2024 End: 03-30-2024 Evaluation and management of inpatient SUDHIR CHRISTINE [facility] Start: 03-17-2024 End: 03-17-2024 ambulatory Millie L Carlos Facility: [facility] [place] Start: 02-08-2024 End: 02-08-2024 ambulatory Millie L Carlos Facility:[facility] [place] Start: 01-20-2024 End: 01-20-2024 ambulatory LARISSA SUTTON Not Available Start: 12-31-2023 End: 12-31-2023 ambulatory LAUREANO AMARAL Not Available Start: 12-17-2023 End: 12-17-2023 ambulatory Millie L Carlos Facility:[facility] [place] Start: 10-29-2023 End: 10-29-2023 ambulatory PHILLIP NUNEZ Facility:[facility] Start: 10-29-2023 End: 10-29-2023 Patient encounter procedure PHILLIP NUNEZ [facility] Start: 09-30-2023 End: 09-30-2023 ambulatory Millie L Carlos Facility:[facility] [place] Start: 07-17-2022 End: 07-17-[address] GINA CULVER Facility:H1 Procedures Date Procedure Procedure Detail Performing Clinician Start: 05-27-2024 X-ray of lumbar spin e, four or more views MD Luisito Roth Work Phone: Start: 04-21-2024 Follow-up visit Follow-up CRIS POLO Start: 12-05-2017 Colonoscopy Addy ZAVALA Abdominal hysterectomy Fredo el NILL Appendectomy PHILLIP NUNEZ Cardiac catheterization Rc ael NILL Cholecystectomy PHILLIP LLANES [place] Colonoscopy PHILLIP LLANESTIZ Comment on above: 01/24 normal repeat 5 years no polyps Dilation and curetta ge of uterus PHILLIP NUNEZ Partial hysterectomy VIMAL LLANESTIZ Release of trigger finger Mi anand NILL Release of trigger thumb Charlie hanaren NILL Plan of Treatment Date Care Activity Detail Author Start: 06-04-2025 ambulatory Ambulatory Facility:[facility] Patient Education Low back pain in adults [facility] Work Phone: Immunizations Immunization Date Immunization Notes Care Provider Ginette marques NEGATED: Highlighted row has not occurred!06-01-2024 influenza virus vaccine, unspecified formulation Addy VELA [facility] NEGATED: Highlighted row has not occurred!11-30-2022 influenza virus vaccine, unspecified formulation PHILLIP NUNEZ [facility] NEGATED: Highlighted row has not occurred!11-30-2022 SARS-CoV-2 mRNA (tozinameran 5y-11y) vaccine PHILLIP NUNEZ [facility] Payers Date Payer Category Payer Self-pay [id number] 2024 Unknown [id number] 2023 Unknown [id number] 1959 Unknown [id number] 1955 Unknown [id number] 2.16.84 0.1.206062.3.579.2.593 1955 Unknown [id number] 2.16.84 0.1.013322.3.579.2.125 1955 Unknown [id number] 2.16.84 0.1.327926.3.579.2.1258 1955 Unknown [id number] 2.16.84 0.1.896086.3.579.2.125 1955 Unknown [id number] 2.16.84 0.1.029341.3.579.2.125 1955 Unknown [id number] 2.16.8 40.1.549586.3.579.2.72 1955 Unknown [id number] 2.16.8 40.1.640522.3.579.2. 1955 Unknown [id number] 2.16.8 40.1.708879.3.579.2. 1955 Unknown [id number] 2.16.8 40.1.402614.3.579.2. 1955 Unknown [id number] 2.16.8 40.1.706494.3.579.2. 1955 Unknown [id number] 2.16.8 40.1.321546.3.579.2.72 1955 Unknown [id number] 2.16.8 40.1.632214.3.579.2. 1955 Unknown [id number] 2.16.8 40.1.772882.3.579.2.72 1955 Unknown [id number] 2.16.8 40.1.928152.3.579.2. 1955 Unknown [id number] 2.16.8 40.1.826394.3.579.2.72 1955 Unknown [id number] 2.16.8 40.1.822426.3.579.2. 1955 Unknown [id number] 2.16.8 40.1.499359.3.579.2.727 1955 Unknown [id number] 2.16.8 40.1.337481.3.579.2.727 1955 Unknown [id number] 2.16.8 40.1.976221.3.579.2.727 1955 Unknown [id number] 2.16.8 40.1.576133.3.579.2.727 1955 Unknown [id number] 2.16.8 40.1.378172.3.579.2.727 1955 Unknown [id number] 2.16.8 40.1.163444.3.579.2.727 Medicare Medicare [id number] Unknown [id number] 2.16.8 40.1.355275.3.579.2.531 Social History Date Type Detail Facility Start: 10-29-2023 End: 07-19-2024 Tobacco smoking status Never smoked tobacco (finding) [facility] Comment on above: denies use. Tobacco smoking status Never [facility] Comment on above: denies use. Sex Assigned At Female [facility] Start: 1955 Sex Assigned At Female [facility] Functional Status Date Assessment Result Facility 07-19-2024 Functional Status N/A [facility] [place] 10-29-2023 Functional Status N/A [facility] Clinical Notes 03-25-2024 to 07-19-2024 [...] spondylosis, referred for surveillance colonoscopy; last colonoscopy 2018 with removal of small tubular adenoma from [...] Medication Allergies Social (more content not included)... [facility] Comment on above: Result Comment: Elec tronically Signed By: LISA MACIAS, Addy Julien\Date and Time Signed: 07/19/24 16:15 EST 06-01-2024 [...] Keep items that you use often in umgi-vp-cudxp places. Lower the shelves around your home [...] the way. ? Do not use floor cayman islander or wax that makes floors slippery. What [...] Control and Prevention, STEADI: cdc.gov ? National [place] on Aging: linda.nih.gov ? National [place] on Aging: linda.nih.gov Contact a doctor if: [...] replace advice given (more content not included)... [facility] 04-21-2024 Note Cardiology Follow Up Progress Note Chief Complaint: Follow-up ([facility] Follow up/Concerns: No further cardiac concerns/symptoms. ) HPI: Jess Bacon is a 68 y.o. female who with a past medical history including overactive bladder, anxiety, vitamin D deficiency, and recent NSTEMI who presents to [place] for post hospitalization follow up. Patient was transferred [facility] from outside hospital after presenting with complaints of abdominal pain, nausea, vomiting, and diarrhea x 8 times per day. She was found to be dehydrated, and fluid resuscitation was performed. Her troponin was found to be elevated, show she was transferred for further evaluation/management. [facility], patient was found to have a [...] Value Ventricular Rate 67 Atrial Rate 67 CO Interval 142 QRS DURATION 70 QT Interval 448 QTC CALCULATION(BAZETT) 473 P Lak[place] 83 R-Lakeland -5 T Wave Lak[place] -22 Impression Normal sinus rhythm Possible Inferior [...] Bubble Study Result Date: 03/27/2024 1 [facility] [address] [place] [address] [phone] (fax) Echocardiogram-[facility] Name: JESS BACON [...] Due to suboptima (more content not included)... [facility] 04-19-2024 Note Nurse Consultation N ote [...] - Not Given Patient Refuses SARS-CoV-2 mRNA (alessandron 5y-11y) vac - Not Given Patient Refuses [facility] 04-12-2024 Note Nurse Consultation N [...] 5y-11y) vac - Not Given Patient Refuses [facility] 04-06-2024 Note Patient Education Infectious [...] medicines. These include steroids, antibiotics, and some upxd-ffm-pqyagdp medicines, such as aspirin or ibuprofen. ? [...] these instructions at home: Medicines ? Take bsvb-ell-thygamn and prescription medicines only as told by [...] reduce the amount (more content not included)... [facility] 03-30-2024 Note Hospital Medicine Discharge Summary Final Discharge Diagnosis: NSTEMI (non-ST elevated myocardial infarction) ([facility]) Type II demand ischemia Gastroenteritis Overactive bladder Admission Diagnosis: NSTEMI (non-ST elevated myocardial infarction) ([facility]) [I21.4] Hospital course: Patient is a 68-year-old female with overactive bladder, anxiety, vitamin D deficiency, presented from [facility] with abdominal pain, nausea/vomiting and diarrhea, [...] any infection or hematoma. Dear Dr. Gonzalez, JAH, Jess is advised to follow up with you within 1-2 weeks. Follow-up with: Cardiologyand PCP Scheduled appointments: Future Appointments Date Time Provider Department Center 04/14/2024 3:40 PM Cris Polo MD [facility] Your medication list CONTINUE taking these [...] was 33 minutes. Signed Gisela Holguin MD [facility] 03/30/2024 2:02 PM [facility] 03-30-2024 Note [facility] CARDIOLOGY INPAT IENT PROGRESS NOTE Reason for follow up: elevated troponin Subjective HPI: Jess Bacon is a 68 y.o. female with no known past medical history, no medications at home presented to the hospital due to elevated troponin the patient initially went to [facility] due to symptoms of abdominal pain, [...] -- -- 69 23 96 % -- 03/29/24 2000 (!) 102/49 -- -- 61 13 97 % -- 03/29/24 1945 -- 37.4 ???C (99.3 ???F) Temporal -- [...] WBC 6.22 03/07 (more content not included)... [facility] 03-29-2024 Note Patient: Jess yin Procedure Information Date/Time: 03/29/241123 Procedure: Coronary angiography - with cors Location: [facility] PHOSPHORIC ACID OPERATOR 2 BIPLANE / [facility] (Cath) Providers: Bebo Yee MD [...] Plan discussed with attending. Additional Equipment Requests [facility] 03-29-2024 Note Hospital Medicine Daily Progress Note - 03/29/2024 11:31 AM; Room: [address] [place] [address] Admission: 03/25/2024 9:23 PM; Length of stay: 4 days THE HOSPITALIST TEAM PREFERS TO USE [employer] CHAT FOR COMMUNICATION 7AM-7PM. IF I DO NOT RESPOND WITHIN 15 MINUTES, PLEASE PAGE ME/CALL THROUGH THE SKIP LOADER. FROM 7PM-7AM, PLEASE PAGE [phone](COVR) Code Status: Full Code Barriers to Discharge: Cardiac catheterization Expected Discharge Date: 03/25/2024 Discharge Destination: home Overview Patient is seen for evaluation and management of gastroenteritis, elevated troponin. Patient is a 68-year-old female with overactive bladder, anxiety, vitamin D deficiency, presented from [facility] with abdominal pain, nausea/vomiting and diarrhea, [...] Principal Problem: NSTEMI (non-ST elevated myocardial infarction) ([facility]) Active Problems: Gastroenteritis Anxiety Abnormal stress test Assessment and Plan Patient is a 68-year-old female with overactive bladder, anxiety, vitamin D deficiency, presented from [facility] with abdominal pain, nausea/vomiting and diarrhea, [...] AST U/L 31 (more content not included)... [facility] 03-29-2024 Note [facility] CARDIOLOGY INPAT IENT PROGRESS NOTE Reason for follow up: elevated troponin Subjective HPI: Jess Bacon is a 68 y.o. female with no known past medical history, no medications at home presented to the hospital due to elevated troponin the patient initially went to [facility] due to symptoms of abdominal pain, [...] cp, sob, palpitations, dizziness, LH, N/V/D. Tele: 59 ALLERGIES No Known Allergies CURRENT MEDS aminophylline, [...] ischemia, TID ind (more content not included)... [facility] 03-28-2024 Note [facility] Medicine Daily Progress Note - 03/28/2024 1:37 PM; Room: [address] [place] [address] Admission: 03/25/2024 9:23 PM; Length of stay: 3 days THE HOSPITALIST TEAM PREFERS TO USE [employer] CHAT FOR COMMUNICATION 7AM-7PM. IF I DO NOT RESPOND WITHIN 15 MINUTES, PLEASE PAGE ME/CALL THROUGH THE SKIP LOADER. FROM 7PM-7AM, PLEASE PAGE [phone](COVR) Code Status: Full Code Barriers to Discharge: Cardiac catheterization Expected Discharge Date: 03/29/2024 Discharge Destination: home Overview Patient is seen for evaluation and management of gastroenteritis, elevated troponin. Patient is a 68-year-old female with overactive bladder, anxiety, vitamin D deficiency, presented from [facility] with abdominal pain, nausea/vomiting and diarrhea, [...] Principal Problem: NSTEMI (non-ST elevated myocardial infarction) ([facility]) Active Problems: Gastroenteritis Anxiety Assessment and Plan Patient is a 68-year-old female with overactive bladder, anxiety, vitamin D deficiency, presented from [facility] with abdominal pain, nausea/vomiting and diarrhea, [...] 33* 35 BILIRUBI (more content not included)... [facility] 03-28-2024 Note [facility] CARDIOLOGY INPAT IENT PROGRESS NOTE Reason for follow up: elevated troponin Subjective HPI: Jess Bacon is a 68 y.o. female with no known past medical history, no medications at home presented to the hospital due to elevated troponin the patient initially went to [facility] due to symptoms of abdominal pain, [...] -- -- 62 13 97 % -- 03/27/24 2023 100/50 37.4 ???C (99.3 ???F) Temporal 70 [...] TID index score (more content not included)... [facility] 03-27-2024 Note Attestation signed by Melonie [...] to low blood pressure. Melonie Cole MD, [facility] Cardiology Progress Note Subjective Subjective: Jess Bacon [...] 03/27/24 1140 108/58 36.8 ???C (98.2 ???F) [facility] 67 13 -- -- 03/27/24 0929 (!) 100/48 -- -- 64 -- -- -- 03/27/24 0805 172/60 36.9 ???C (98.4 ???F) [facility] 87 20 -- -- 03/27/24 0620 -- -- -- -- -- -- 53.3 kg (117 lb 6.4 oz) 03/27/24 0400 109/66 -- -- 65 12 96 % -- 03/27/24 0000 94/53 -- -- 64 12 96 % -- 03/26/24 2100 -- 37.3 ???C (99.1 ???F) [facility] -- -- -- -- 03/26/24 2000 99/56 -- -- 68 (!) 31 96 % -- 03/26/24 1615 90/70 37 ???C (98.6 ???F) [facility] 69 18 100 % -- Physical Examination: GENERAL: AOx3, in no acute distress. NECK: No JVD present. CARDIAC: RRR. No murmur, rubs, or gallops. RESPIRATORY: CTAB, no increased effort of breathing. ABDOMEN: Soft, nontender, nondistended. EXTREMITIES: No lower extremity edema, peripheral pulses are 2+ bilaterally. Relevant Lab Results Encounter Date: 07/20/24 ECG 12 lead Result Value Ventricular Rate 67 Atrial Rate 67 CO Interval 142 QRS DURATION 70 QT Interval 448 QTC CALCULATION(BAZETT) 473 P [place] 83 R-Lakeland -5 T Wave [place] -22 Impression Normal sinus rhythm Possible Inferior [...] Bubble Study Result Date: 03/27/2024 1 1 [facility] [address] [place] [address] [phone] (fax) Echocardiogram-[facility] Name: JESS BACON [...] (22ml - 52ml) (more content not included)... [facility] 03-27-2024 Note 03/27/24 5247 Admission Assessment Questions Verify insurance with patient Yes (Fredis LAZARBS. Medicare A B. [facility] [employer].) Do you understand medical disease or what [...] Bedside Delivery Status Not Interested (Sal in [facility].) Does the patient have a case [...] with plans to return Home no needs. [facility] 03-27-2024 Note Hospital Medicine Daily Progress Note - 03/27/2024 1:27 PM; Room: 3140/3140-01 Admission: 03/25/2024 9:23 PM; Length of stay: 2 days THE HOSPITALIST TEAM PREFERS TO USE [employer] CHAT FOR COMMUNICATION 7AM-7PM. IF I DO NOT RESPOND WITHIN 15 MINUTES, PLEASE PAGE ME/CALL THROUGH THE SKIP LOADER. FROM 7PM-7AM, PLEASE PAGE [phone](COVR) Code Status: Full Code Barriers to Discharge: [...] Principal Problem: NSTEMI (non-ST elevated myocardial infarction) ([facility]) Active Problems: Gastroenteritis Anxiety Assessment [...] LDL 101 03/26/2024 No results found for: [id number] , IRON , TIBC , C3 , [...] T waves in (more content not included)... [facility] 03-27-2024 Note Physical Therapy Physical Therapy [...] Level of Function Prior Function Level of Roosevelt: Independent with ADLs and functional transfers, Independent [...] 68 y/o female who presents at her baselin level of function, independent for all mobility without skilled PT needs. PT to sign off. Evaluation/Treatment Tolerance: Patient tolerated treatment well Plan PT Plan: No skilled PT No Skilled PT: At baseline function PT Frequency: One time visit PT Discharge Recommendations: Ho (more content not included)... [facility] 03-27-2024 Note Occupational Therapy Occupational Therapy Evaluation Patient Name: Jess Bacon : 1955 Today's Date: 03/27/2024 Time In: 1026 Time Out: 1031 Jess Bacon is an 68 y.o. female who came from home with past medical history of overactive bladder, anxiety and vitamin D deficiency presented to [facility] as a transfer from [facility] for NSTEMI. 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) Prior Functional Mobility: Independent without device Prior [...] Eating meals?: None (Independent) Total Score OT [facility]: 24 Assessment/Plan Plan OT Plan: No skilled OT No Skilled OT: At baseline function OT Discharge Recommendations: Home OT - Discharge Recommendations Placed: Yes OT Goals Multi-Disciplinary Problems (from Occupational Therapy) Active Problems Not on file [facility] 03-26-2024 Note Hospital Medicine Daily Progress Note - 03/26/2024 4:53 PM; Room: [address] [place] [address] Admission: 03/25/2024 9:23 PM; Length of stay: 1 days THE HOSPITALIST TEAM PREFERS TO USE [employer] CHAT FOR COMMUNICATION 7AM-7PM. IF I DO NOT RESPOND WITHIN 15 MINUTES, PLEASE PAGE ME/CALL THROUGH THE SKIP LOADER. FROM 7PM-7AM, PLEASE PAGE [phone](COVR) Code Status: Full Code Barriers to Discharge: [...] LDL 101 03/26/2024 No results found for: [id number] , IRON , TIBC , C3 , [...] Lateral Discharge Planning Signed Maximino Cancino MD Hospital Medicine 03/26/2024 4:53 PM [facility] 03-25-2024 Note Hospital Medicine History and Physical 03/25/2024 10:58 PM THE HOSPITALIST TEAM PREFERS TO USE [employer] CHAT FOR COMMUNICATION 7AM-7PM. IF I DO NOT RESPOND WITHIN 15 MINUTES, PLEASE PAGE ME/CALL THROUGH THE SKIP LOADER. FROM 7PM-7AM, PLEASE PAGE [phone](COVR) Chief Complaint No chief complaint on file. History of Present Illness Jess Bacon is an 68 y.o. female who came from home with past medical history of overactive bladder, anxiety and vitamin D deficiency presented to [facility] as a transfer from [facility] for NSTEMI. Patient reports that for [...] Date Noted NSTEMI (non-ST elevated myocardial infarction) ([facility]) 03/25/2024 Gastroenteritis 03/25/2024 Anxiety 03/25/2024 [...] this hospital stay by a member of [facility] Medicine. Past Medical History History reviewed. [...] Ran Out o (more content not included)... [facility] Evaluation + Plan note Future Appointments Appointment Date:04/27/2024 01:00:00 PM Scheduled Provider: Location:[facility] Appointment Type:FM Medicare Wellness Subsequent [facility] Evaluation + Plan note Future Appointments Appointment Date:06/04/2025 02:30:00 PM Scheduled Provider: Location:[facility] Appointment Type: Medicare Wellness Subsequent Future Scheduled TestsMA Mamm Screen w/CAD if perf and 3D Dimitri 06/01/24 [facility] [place] Evaluation note Diagnosis Onset Date Low back pain acute [facility] Work Phone: Hospital course Narrative No data available for this section [facility] Hospital Discharge instructions No data available for this section [facility] Progress note No data available for this section [facility] Summary Purpose Family [...] and content) DATE CREATED AUTHOR 07/21/2022 [facility] DATE CREATED AUTHOR AUTHOR'S ORGANIZ ATION 01/23/2024 [facility] EPIC DATE CREATED AUTHOR AUTHOR'S ORGANIZ ATION 05/02/2024 [facility] DATE CREATED AUTHOR AUTHOR'S ORGANIZ ATION 06/04/2024 [facility] DATE CREATED AUTHOR AUTHOR'S ORGANIZ ATION 09/01/2024 [facility] Patient Care team informatio n (unrecognized section [...] Status: Inactive Member Role Status Dates Zoila M Malcom , VISITOR SERVICES INFORMATION ASSISTANT Attending Provider Active S tart: May 27, [...] BE BASED ON THE PRIMARY CLINICAL RECORDS. [employer] provides no warranty or guarantee of the accuracy or completeness of information in this document.
== END 2024-09-19 14:46 | disposition home or self-care (01) ==
LOC: PST 14:45
PROVIDERS: PCP Nurse Practitioner; Visit Provider Surgery
DX: Z01.818 Encounter for other preprocedural examination (principal); Z86.0109 Personal history of other colon polyps; Z12.11 Encounter for screening for malignant neoplasm of colon

== ENCOUNTER 2024-09-27 08:14 | Day surgery (SDC) | payer OTHER, BC, SELFPAY ==
--- NOTE | 2024-09-27 | OP_ITS ---
OPERATION DATE: 09/27/2024 PREOPERATIVE DIAGNOSIS: Personal history of colon polyps. POSTOPERATIVE DIAGNOSIS: Severe sigmoid diverticulosis. PROCEDURE: Colonoscopy to cecum. SURGEON: Addy Lopes M.D. ANESTHESIA: Monitored anesthesia care. ESTIMATED BLOOD LOSS: Zero. INDICATIONS AND CONSENT: Patient is a 68-year-old female with personal history of colon polyps. Last colonoscopy was in 2018 with the removal of a small, 2 mm adenoma. Indications, risks, benefits, alternatives of proceeding with colonoscopy were explained extensively to the patient, including the risks of bleeding, colon perforation or anesthetic complications. All of her questions were answered. Informed consent was obtained. PROCEDURE: Patient brought to the operating room, placed in the left lateral decubitus position. Monitored anesthesia care was provided. Rectal exam was performed which showed no masses or blood. The scope was inserted into the anal canal. Under direct visualization was advanced. With the aid of abdominal compression, it was advanced to the cecum where cecal markings were clearly identified. There was noted to be a good prep. Upon withdrawal of the scope, mucosal surfaces were carefully examined. There were no mass lesions or inflammatory changes. Within the sigmoid colon, there was noted to be severe sigmoid diverticulosis without inflammatory changes or scarring. The scope was retroflexed in the anal canal. There was no significant hemorrhoidal disease. The scope was then withdrawn. Patient tolerated procedure well, was sent to recovery room in good condition. Follow up colonoscopy should be in 10 years. CC: JAH Jon
[2024-09-27 08:18] VITALS: BP 149/73; PULSE 80; TEMP 36.3; O2SAT 96; BMI 19.9
--- OUTSIDE RECORDS SUMMARY | 2024-09-27 08:24 | XMS_ITS | CCD ---
Author Organization [facility] Care Team Providers Care Monorail Car Operator Name Role Phone ABIOLA, DR GINA Berg Primary Care Unavailable PAY, DR ROBLES Admitting Unavailable PAY, DR ROBLES Attending Unavailable IVETTE RICHMOND Consulting Unavailable Millie Gonzalez Primary Care Physician LAUREANO AMARAL Referring Unavailable LAUREANO AMARAL Attending [...] Medication Allergies] Propensity to adverse reactions (disorder) [facility] Repository Medications Current Medications Medication Drug [...] day(s), # 5 tab(s), Refills(s) 0, Pharmacy: [facility][id number], 158, cm, 10/29/23 13:27:00 EST, Height/Length Dosing, [...] daily, # 90 tab(s), Refills(s) 0, Pharmacy: [facility], 158, cm, 06/06/24 14:02:00 [...] Daily, # 90 tab(s), Refills(s) 3, Pharmacy: [facility], 157, cm, 05/25/23 15:27:00 [...] daily, # 30 tab(s), Refills(s) 0, Pharmacy: [facility], 158, cm, 06/06/24 14:02:00 [...] daily, # 90 tab(s), Refills(s) 3, Pharmacy: [facility], 158, cm, 04/06/24 14:41:00 [...] 05-11-2024 Chronic Comment on above: Noted in [facility] page 4 , added per [...] Daily, 16 gram, Refill(s) 0, each nostril, [facility], 158, cm, 08/31/24 14:31:00 EST, Height/Length Dosing, 49.6, kg, 08/31/24 14:31:00 EST, Weight Dosing Influenza Type A&B POC 11156 Rapid COVID POC 65102 Orders: amoxicillin, 500 mg = 1 cap(s), Oral, TID, X 7 day(s), # 21 cap(s), Refills(s) 0, Pharmacy: [facility], 158, cm, 08/31/24 14:31:00 [...] oral tablet, See Instructions Flonase 0.05 mg/inh [place], 2 spray(s), Nasal, Daily meloxicam 15 mg [...] Rapid Covid POC: Negative (08/31/24 14:43:00) Normal [facility] Comment on above: Result Comment: Elec [...] Follow-Up Appointments Wednesday 2:30 PM EDT Where: [address] [address]- Medications What How Much When [...] you for choosing us for your care. [facility] Ambulatory Visit Summaryon 1 Ambulatory Visit Summary [...] Follow-Up Appointments Wednesday 2:30 PM EDT Where: [address] [address]- Medications What How Much When Why Instructions [...] choosing us for your care. Normal [facility] Family Medicine Office/Clini c Noteon 06-06-2024 Family Medicine Office/Clinic Note Family Medicine Office/Clinic Note HPI Staff Jess is a 68 year old female presenting with needing clearance to go back to work [employer]HA- waiting for MRI - Has not called for them to schedule them Message in chart from consult with Dr Vela in [place] or [place] yesterday- Still has to call back History [...] for malignant neoplasm of breast) order for [facility] provided and faxed Follow-up No qualifying data [...] vac - Not Given Patient Refuses Normal [facility] Comment on above: Result Comment: Elec tronically Signed By: Millie Florentino\.asaf\Date and Time Signed: 06/06/24 14:24 EDT Provider Letteron 06-06-2024 Provider Letter Provider Letter [address] [place] [address] June 06, 2024 JESS BACON [address] [place] [address] : 1955 To Whom It May Concern, Please excuse above patient from work due to injury. Date of Illness: From: 05/29/2024 To: 06/07/2024 May Return to Work On:06/08/2024 Restrictions: No vibrating hand tools Sincerely, JAH Jon [facility] Provider Letter Provider Letter [address] [place] [address] June 06, 2024 [place] [address] : 1955 To Whom It May Concern, Please excuse above patient from work due to injury. Date of Illness: From: 05/29/2024 To: 06/07/2024 May Return to Work On:06/08/2024 Restrictions: none Sincerely, JAH Jon [facility] Ambulatory Visit Summaryon 0 06-02-2024 Ambulatory Visit [...] Follow-Up Appointments Wednesday 2:30 PM EDT Where: [place] [address]- You Need to Complete the Following MA Mamm Screen w/CAD if perf and 3D Dimitri, 06/01/24, Routine, Order for Future Visit, Transport Mode: Ambulatory, Reason: Screening, No, Breast cancer screening by mammogram, pp_set_radiology_subsp ecialty, [facility] Medications What How Much When [...] i (more content not included)... Normal [facility] Family Medicine Office/Clini c Raiza 06-02-2024 Family Medicine Office/Clinic Note Family Medicine Office/Clinic Note HPI Staff Jess is a 68 year old female presents today for colonoscopy & mammogram order. Order sent for mammogram to [facility] by Lydia Colonoscopy ? [facility] if they do this? History of Present [...] would like to have it done at [facility]. referral placed for Dr. Vela to do at [facility] Ordered: E&M of Est. Patient Straight Fwd 10-19 Min [id number] [facility] Internal Ambulatory Referral 2. Right low back pain (M54.50: Low back pain, unspecified) completed FMLA paperwork. pain is somewhat improving. waiting for MRI Ordered: E&M of Est. Patient Straight Fwd 10-19 Min [id number] Orders: 1125F Pain severity quantified; pain present [...] vac - Not Given Patient Refuses Normal [facility] Comment on above: Result Comment: Elec [...] of clutter to prevent tripping and/or falling. [place] Advance Directives reviewed. Documents provided to patient, [...] ordered and has been faxed to the [facility] per patient request, hospital will call [...] for sturdiness. (more content not included)... Normal [facility] Comment on above: Result Comment: Elec [...] Appointments 2023 2:30 PM EDT With: Where: [address] [address] 2023 3:00 PM EDT With: Millie Florentino Where: [address] [address]- Medications What How Much When Why Instructions [...] choosing us for your care. Normal [facility] Medicine Office/Clini c Noteon 05-29-2024 [...] pain, # 30 tab(s), Refills(s) 0, Pharmacy: [facility] #[facility], 158, cm, 05/29/24 13:41:00 EDT, Height/Length Dosing, 52.5, kg, 05/29/24 13:41:00 EDT, Weight Dosing 2. Right low back pain (M54.50: Low back pain, unspecified) pt fell and landed on right lower back Ordered: tramadol, 50 mg = 1 tab(s), Oral, q12hr, PRN for pain, # 30 tab(s), Refills(s) 0, Pharmacy: [facility], 158, cm, 05/29/24 13:41:00 EDT, Height/Length Dosing, 52.5, kg, 05/29/24 13:41:00 EDT, Weight Dosing 3. BMI 21.0-21.9, adult (Z68.21: Body mass index [BMI] 21.0-21.9, adult) BMI education Ordered: tramadol, 50 mg = 1 tab(s), Oral, q12hr, PRN for pain, # 30 tab(s), Refills(s) 0, Pharmacy: [facility], 158, cm, 05/29/24 13:41:00 EDT, Height/Length [...] pain, # 30 tab(s), Refills(s) 0, Pharmacy: [facility], 158, cm, 05/29/24 13:41:00 EDT, Height/Length [...] vac - Not Given Patient Refuses Normal [facility] Comment on above: Result Comment: Elec tronically Signed By: Millie Florentino\.br\Date and Time Signed: 05/29/24 14:13 EDT Provider Letteron 05-29-2024 Provider Letter Provider Letter May 29, 20[address]ON [address] [place] [id number] : 1955 To Whom It May Concern, Please excuse above patient from work due to medical Date of Illness: From: _ 05-29-24 To: 05-30-24 May Return to Work On: 05-31-24 Restrictions: _ Comments: _ Sincerely, Normal [facility] XR lumbar spine min 4V*on XR lumbar spine min 4V* [facility] Main [employer] [address] [place] [address] XRay Report Signed Patient: Jess Bacon MR#: [id number] : 1955 Acct:[id number] Age/Sex: 68 / F ADM Date: 05/27/24 Loc: XDUCLY Room: Type: [facility] Attending Dr: Zoila العراقي APRN Copies to: [...] Marinelli Jr., D.O.05/27/2024 2:47 PM Dictation Location: [id number] Transcribed By: [facility] 05/27/24 1447 Dictated By: Eleuterio Marinelli Jr, DO 05/27/24 1446 Signed By: 05/27/24 1447 Normal [facility] Ambulatory Visit Summaryon 0 [...] Appointments 2023 2:30 PM EDT With: Where: [address] [address] 2023 3:00 PM EDT With: Millie Florentino Where: [address] [address]- Someone Will Contact You Regarding These Appointments [facility] External Ambulatory Referral, [place], 05/12/24 10:37:00 EDT, Foot pain, right Non-smoker BMI 20.0-20.9, adult Medications What How Much When Why Instructions New meloxicam (meloxicam 15 mg Tab) 1 Tablets By Mouth Every day Foot pain, right Non-smoker BMI 20.0-20.9, adult Pickup at [facility] 142 New methylPREDNISolone (Medrol 4 mg Tab) 1 Packets By Mouth As Directed Foot pain, right Non-smoker BMI 20.0-20.9, adult Duration: 6 Days as directed on package labeling Pickup at [facility] 142 Unchanged aspirin 81 Milligram By Mouth [...] Gram By Mouth Every day Pharmacy Information [facility]: [address] [place], [place] [phone] Allergies No Known Medication Allergies Problems Ongoing [...] choosing us for your care. Normal [facility] Family Medicine Office/Clini c Noteon 05-12-2024 [...] Daily, # 30 tab(s), Refills(s) 0, Pharmacy: [facility], 158, cm, 05/12/24 10:25:00 EDT, Height/Length Dosing, 52.3, kg, 05/12/24 10:25:00 EDT, Weight Dosing methylPREDNISolone, = 1 packet(s), Oral, As Directed, as directed on package labeling, X 6 day(s), # 21 tab(s), Refills(s) 0, Pharmacy: [facility], 158, cm, 05/12/24 10:25:00 EDT, Height/Length Dosing, 52.3, kg, 05/12/24 10:25:00 EDT, Weight Dosing [facility] External Ambulatory Referral 2. Non-smoker (Z78.9: Other specified health status) continue not smoking Ordered: meloxicam, 15 mg = 1 tab(s), Oral, Daily, # 30 tab(s), Refills(s) 0, Pharmacy: [facility], 158, cm, 05/12/24 10:25:00 EDT, Height/Length Dosing, 52.3, kg, 05/12/24 10:25:00 EDT, Weight Dosing methylPREDNISolone, = 1 packet(s), Oral, As Directed, as directed on package labeling, X 6 day(s), # 21 tab(s), Refills(s) 0, Pharmacy: [facility], 158, cm, 05/12/24 10:25:00 EDT, Height/Length Dosing, 52.3, kg, 05/12/24 10:25:00 EDT, Weight Dosing Body Mass Index (BMI) documented 3008F Current tobacco non-user 1036F Depression Screening Negative 3352F [facility] External Ambulatory Referral Influenza immunization status assessed [...] Daily, # 30 tab(s), Refills(s) 0, Pharmacy: [facility], 158, cm, 05/12/24 10:25:00 EDT, Height/Length Dosing, 52.3, kg, 05/12/24 10:25:00 EDT, Weight Dosing methylPREDNISolone, = 1 packet(s), Oral, As Directed, as directed on package labeling, X 6 day(s), # 21 tab(s), Refills(s) 0, Pharmacy: [facility], 158, cm, 05/12/24 10:25:00 EDT, Height/Length Dosing, 52.3, kg, 05/12/24 10:25:00 EDT, Weight Dosing Body Mass Index (BMI) documented 3008F Current tobacco non-user 1036F Depression Screening Negative 3352F [facility] External Ambulatory Referral Influenza immunization status assessed [...] Appendectomy, Cholecystecto (more content not included)... Normal [facility] Comment on above: Result Comment: Elec tronically Signed By: Millie Florentino\.asaf\Date and Time Signed: 05/12/24 10:43 EDT Follow-Upon 04-21-2024 Follow-Up [id number] Arleen,Nao skye Selby 1955 F Date Provider Department Center 04/21/2024 3848-JAMISHANACRIS [facility] No family history on file Level of Service:35978 [place] OFFICE/OUTPATIENT ESTABLISHED LOW MDM 20 MIN Reason for Visit and Comments: Follow-up [211564] - [facility] Follow up Concerns: No further cardiac concerns/symptoms. Normal [facility] Population Health 04-13-20 [facility] Population Health Case Information Case Priority: None Programs: -- Referral Source: Strap Making Machine Operator Referral Reason: Care coordination Case Type: Transition [...] Patient has cardio follow up tomorrow at [facility] with [facility]. Patient denies any further questions or concerns. Communication Events Date: April 13, 2024 Method: Phone call Type: Outbound Duration (min): 4 Outcome: Case discussion Contact Type: quality improvement coordinator Contact Name: Michael Murray Notes: TCM#2- see tcm note. Created By: Michael Murray Date: March 31, 2024 Method: Phone call Type: Outbound Duration (min): 15 Outcome: Case discussion Contact Type: quality improvement coordinator Contact Name: Michael Murray Notes: TCM#1- see tcm note. Created By: Michael Murray [facility] Ambulatory Visit Summaryon 0 04-06-2024 Ambulatory Visit [...] Follow-Up Appointments Wednesday 3:00 PM EDT Where: [address] [address] 2023 1:00 PM EDT Where: [address] [address]- Medications What How Much When Why Instructions [...] medicines. These include steroids, antibiotics, and some qtno-gtl-lhixbea medicines, such as aspirin or ibuprofen. ? [...] medical histor (more content not included)... Normal [facility] Family Medicine Office/Clini c Noteon 04-06-2024 Family Medicine Office/Clinic Note Family Medicine Office/Clinic Note HPI Staff Jess is a 68 year old female presenting for [facility] hospital follow up Patient of Millie Gonzalez, no open hours on Millie's schedule and she had to have this f/u Brought log of bp readings with her TCM: Hospital: [facility] & [facility] Admission date: 03/25/24 Discharge date: 03/30/24 Symptoms the patient presented with: abd pain, N&V, diarrhea Dx non ST NV, type II demand ischemia, GE, overactive bladder [...] Schizoaffective disorder (more content not included)... Normal [facility] Comment on above: Result Comment: Elec tronically Signed By: Luisito Roth MD\.br\Date and Time Signed: 04/06/24 14:53 EDT 36on 04-04-2024 36 Spiral Weaver spoke with patient regarding a [facility] hospital follow up appointment for abd pain and nausea and vomiting. Patient stated she would like to follow up with her PCP. [facility] 03-31-2024 36 Post Discharge Call Good morning, I am Geovanna Ram RN a lead nurse from [facility]. I am calling you to follow up [...] 03/31/2024 Patient Name Jess Bacon Date 03/31/24 [facility] Population [facility] 03-31-20 [facility] Case Information Case Priority: None Programs: -- Referral Source: Strap Making Machine Operator Referral Reason: Care coordination Case Type: Transition [...] Interventions Care Plan Progress Note Admit Date: [facility] Date of Discharge: 03/30/24 Follow-up appointment scheduled? yes, Dr. Roth [facility] 04/06/24 at 1500 Did you understand [...] gastroenteritis, overactive bladder. Patient was transferred from [facility] to [facility] on 03/25/24, she presented with [...] returns to work on Wednesday04/03/24. 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 Patient of Ronald Gonzalez scheduled for TCM follow up with Dr. Roth d/t scheduling conflicts. 04/06/24 at 1500 and to bring medications, cardio f/u 04/14/24, Dr. Polo [facility]. CN explained TCM program and gave CN contact number. Communication Events Date: March 31, 2024 Method: Phone call Type: Outbound Duration (min): 15 Outcome: Case discussion Contact Type: quality improvement coordinator Contact Name: Michael Murray Notes: TCM#1- see tcm note. Created By: Michael Murray [facility] Telephoneon 03-31-2024 Telephone [phone] Mary Bacon 1955 F Date Provider Department Center 03/31/2024 1600-GEOVANNA RAM [facility] No family history on file Reason for Visit and Comments: Hospital Follow-up [832] Normal [facility] 30on 03-30-2024 30 The patient is [...] Licensed In (more content not included)... Normal [facility] CBCon 03-30-2024 Erythrocyte distribution width (RBC) [Ratio] 13.7 % Normal 11.5-15.0 [facility] Comment on above: Performed By: #### L [id number] ####[facility] ([employer])[address] [place] [address] ERYTHROCYTE MEAN CORPUSCULAR HEMOGLOBIN CONCENTRATION (G/DL) BY AUTOMATED 33.0 g/dL Normal 32.0-35.0 [facility] Comment on above: Performed By: #### L [id number] ####[facility] ([employer])[address] [place] [address] Hematocrit (Bld) [Volume fraction] 42.4 % Normal 36.0-48.0 [facility] Comment on above: Performed By: #### L [id number] ####[facility] ([facility] [place] [address] Hemoglobin (Bld) [Mass/Vol] 14.0 g/dL Normal 12.0-15.0 [facility] Comment on above: Performed By: #### L [id number] ####[facility] ([facility])[address] [place] [address] MCH (RBC) [Entitic mass] 28.6 pg Normal 27.0-33.0 [facility] Comment on above: Performed By: #### L [id number] ####[facility] ([facility])[address] [place] [address] MCV (RBC) [Entitic vol] 86.7 fL Normal 82.0-98.0 [facility] Comment on above: Performed By: #### L [id number] ####[facility] ([facility])[address] [place] [address] PLATELETS (10*3/UL) IN BLOOD AUTOMATED COUNT 188 10*3/uL Normal 150-400 [facility] Comment on above: Performed By: #### L [id number] ####[facility] ([facility])[address] [place] [address] RBC (Bld) [#/Vol] 4.89 10*6/uL Normal 3.80-5.00 [facility] Comment on above: Performed By: #### L [id number] ####[facility] ([facility])[address] [place] [address] WBC (Bld) [#/Vol] 6.22 10*3/uL Normal 4.00-10.60 [facility] Comment on above: Performed By: #### L [id number] ####[facility] (BEAKER)[address] [place] [address] COMPREHENSIVE METABOLIC PANE Mynor 03-30-2024 Albumin [Mass/Vol] 3.8 g/dL Normal 3.5-5.7 [facility] Comment on above: Performed By: #### L [id number] ####[facility] ([facility])[address] [place] [address] ALP [Catalytic activity/Vol] 36 U/L Normal 34-104 [facility] Comment on above: Performed By: #### L [id number] ####[facility] ([facility])[address] [place] [address] ALT [Catalytic activity/Vol] 45 U/L Normal 7-52 [facility] Comment on above: Performed By: #### L [id number] ####[facility] ([facility])[address] [place] [address] Anion gap [Moles/Vol] 9 mmol/L Normal 7-20 [facility] Comment on above: Performed By: #### L [id number] ####[facility] ([facility])[address] [place] [address] AST [Catalytic activity/Vol] 49 U/L High 13-39 [facility] Comment on above: Performed By: #### L [id number] ####[facility] ([facility])[address] [place] [address] Bilirubin [Mass/Vol] 0.6 mg/dL Normal 0.3-1.0 [facility] Comment on above: Performed By: #### L [id number] ####[facility] ([facility])[address] [place] [address] Calcium [Mass/Vol] 9.0 mg/dL Normal 8.6-10.3 [facility] Comment on above: Performed By: #### L [id number] ####[facility] ([facility])[address] [place] [address] Chloride [Moles/Vol] 103 mmol/L Normal 98-107 [facility] Comment on above: Performed By: #### L [id number] ####[facility] ([facility])[address] [place] [address] CO2 [Moles/Vol] 30 mmol/L Normal 21-[address] [facility] Comment on above: Performed By: #### L [id number] ####[facility] ([facility])[address] [place] [address] Creatinine [Mass/Vol] 0.65 mg/dL Normal 0.60-1.20 [facility] Comment on above: Performed By: #### L [id number] ####[facility] ([facility])[address] [place] [address] GLOMERULAR FILTRATION RATE ML/MIN/1.73 SQ M.PREDICTED 95.8 mL/min/1.73m*2 Normal >60.0 [facility] Comment on above: Result Comment: The [facility]???s estimated glomerular filtration rate (eGFR) will no [...] of individuals. Performed By: #### L AB17 ####[facility] ([facility])[address] [place] [address] Glucose [Mass/Vol] 91 mg/dL Normal 70-100 [facility] Comment on above: Performed By: #### L [id number] ####[facility] ([facility])[address] [facility] [address] Potassium [Moles/Vol] 4.3 mmol/L Normal 3.5-5.1 [facility] Comment on above: Performed By: #### L [id number] ####[facility] ([facility])[address] [facility] [place] [address] Protein [Mass/Vol] 6.1 g/dL Normal 6.0-8.3 [facility] Comment on above: Performed By: #### L [id number] ####[facility] (BEAKER)[address] [place] [address] Sodium [Moles/Vol] 138 mmol/L Normal 136-145 [facility] Comment on above: Performed By: #### L [id number] ####[facility] (BEAKER)[address] [place] [address] Urea nitrogen [Mass/Vol] 18 mg/dL Normal 7-25 [facility] Comment on above: Performed By: #### L [id number] ####[facility] (BEAKER)[address] [place] [address] UREA NITROGEN/CREATININE (MASS RATIO) IN SER/PLAS 27.7 Normal [facility] Comment on above: Performed By: #### L [id number] ####[facility] (BEAKER)[address] [place] [address] 30on 03-29-2024 30 Problem: Pain - Adul [...] and behaviors that affect risk of falls [place] fall precautions as indicated by assessment Educate [...] and prevent overall improvement and discharge Normal [facility] 30 Daily Case Managemen t [...] Home OT Recommendations: Home New Consults: Normal [facility] 30 The patient is Moderately [...] function Outc (more content not included)... Normal [facility] CBCon 03-29-2024 Erythrocyte distribution width (RBC) [Ratio] 13.6 % Normal 11.5-15.0 [facility] Comment on above: Performed By: #### L [id number] ####[facility] (BEAK[facility])[address] [place] [address] ERYTHROCYTE MEAN CORPUSCULAR HEMOGLOBIN CONCENTRATION (G/DL) BY AUTOMATED 32.5 g/dL Normal 32.0-35.0 [facility] Comment on above: Performed By: #### L [id number] ####[facility] (BEAKER)[address] [place] [address] Hematocrit (Bld) [Volume fraction] 42.8 % Normal 36.0-48.0 [facility] Comment on above: Performed By: #### L [id number] ####[facility] (BEAKER)[address] [place] [address] Hemoglobin (Bld) [Mass/Vol] 13.9 g/dL Normal 12.0-15.0 [facility] Comment on above: Performed By: #### L [id number] ####[facility] (BEAKER)[address] [place] [address] MCH (RBC) [Entitic mass] 29.0 pg Normal 27.0-33.0 [facility] Comment on above: Performed By: #### L [id number] ####[facility] ([facility])[address] [place] [address] MCV (RBC) [Entitic vol] 89.4 fL Normal 82.0-98.0 [facility] Comment on above: Performed By: #### L [id number] ####[facility] ([facility])[address] [place] [address] PLATELETS (10*3/UL) IN BLOOD AUTOMATED COUNT 182 10*3/uL Normal 150-400 [facility] Comment on above: Performed By: #### L [id number] ####[facility] ([facility])[address] [place] [address] RBC (Bld) [#/Vol] 4.79 10*6/uL Normal 3.80-5.00 [facility] Comment on above: Performed By: #### L [id number] ####[facility] ([facility])[address] [place] [address] WBC (Bld) [#/Vol] 5.41 10*3/uL Normal 4.00-10.60 [facility] Comment on above: Performed By: #### L [id number] ####[facility] ([facility])[address] [place] [address] COMPREHENSIVE METABOLIC PANE Mynor 03-29-2024 Albumin [Mass/Vol] 3.7 g/dL Normal 3.5-5.7 [facility] Comment on above: Performed By: #### L [id number] ####[facility] ([facility])[address] [place] [address] ALP [Catalytic activity/Vol] 34 U/L Normal 34-104 [facility] Comment on above: Performed By: #### L [id number] ####[facility] ([facility])[address] [place] [address] ALT [Catalytic activity/Vol] 24 U/L Normal 7-52 [facility] Comment on above: Performed By: #### L [id number] ####[facility] ([facility])[address] [place] [address] Anion gap [Moles/Vol] 10 mmol/L Normal 7-20 [facility] Comment on above: Performed By: #### L [id number] ####[facility] ([facility])[address] [place] [address] AST [Catalytic activity/Vol] 31 U/L Normal 13-39 [facility] Comment on above: Performed By: #### L [id number] ####[facility] ([facility])[address] [place] [address] Bilirubin [Mass/Vol] 0.7 mg/dL Normal 0.3-1.0 [facility] Comment on above: Performed By: #### L [id number] ####[facility] ([facility])[address] [place] [address] Calcium [Mass/Vol] 9.1 mg/dL Normal 8.6-10.3 [facility] Comment on above: Performed By: #### L [id number] ####[facility] ([facility])[address] [place] [address] Chloride [Moles/Vol] 105 mmol/L Normal 98-107 [facility] Comment on above: Performed By: #### L [id number] ####[facility] ([facility])[address] [place] [address] CO2 [Moles/Vol] 30 mmol/L Normal 21-[address] [facility] Comment on above: Performed By: #### L [id number] ####[facility] ([facility])[address] [place] [address] Creatinine [Mass/Vol] 0.76 mg/dL Normal 0.60-1.20 [facility] Comment on above: Performed By: #### L [id number] ####[facility] ([facility])[address] [place] [address] GLOMERULAR FILTRATION RATE ML/MIN/1.73 SQ M.PREDICTED 85.3 mL/min/1.73m*2 Normal >60.0 [facility] Comment on above: Result Comment: [facility]???s estimated glomerular filtration rate (eGFR) will no [...] of individuals. Performed By: #### L [id number] ####[facility] ([facility])[address] [place] [address] Glucose [Mass/Vol] 100 mg/dL Normal 70-100 [facility] Comment on above: Performed By: #### L [id number] ####[facility] ([facility])[address] [place] [address] Potassium [Moles/Vol] 4.8 mmol/L Normal 3.5-5.1 [facility] Comment on above: Performed By: #### L [id number] ####[facility] ([facility])[address] [place] [address] Protein [Mass/Vol] 6.0 g/dL Normal 6.0-8.3 [facility] Comment on above: Performed By: #### L [id number] ####[facility] ([facility])[address] [place] [address] Sodium [Moles/Vol] 140 mmol/L Normal 136-145 [facility] Comment on above: Performed By: #### L [id number] ####[facility] ([facility])[address] [place] [address] Urea nitrogen [Mass/Vol] 16 mg/dL Normal 7-25 [facility] Comment on above: Performed By: #### L [id number] ####[facility] ([facility])[address] [place] [address] UREA NITROGEN/CREATININE (MASS RATIO) IN SER/PLAS 21.1 [facility] Comment on above: Performed By: #### L [id number] ####[facility] ([facility])[address] [place] [address] HPon 03-29-2024 HP H&P reviewed. The patient was examined and there are no changes to the H&P. Jess Bacon is a 68 y.o. female with no known past medical history, no medications at home presented to the hospital due to elevated troponin the patient initially went to [facility] due to symptoms of abdominal pain, nausea vomiting diarrhea up to 8 times a day, watery consistency, referred to [facility] for NSTEMI. Lexiscan Myocardial Perfusion Stress Tests is positive at the inferolateral section. Patient will undergo diagnostic CORS. [facility] 30on 03-28-2024 30 The patient is Moderately Stable - Low risk of patient condition declining or worsening The patient's goals for the shift include comfort, rest The clinical goals for the shift include stable vitals, comfort [facility] 30 Daily Case Managemen t Update [...] Recommendations: Home OT Recommendations: Home New Consults: [facility] 30 The patient is Moderately Stable [...] difficulty Respiratory therapy support as indicated Normal [facility] CBCon 03-28-2024 Erythrocyte distribution width (RBC) [Ratio] 13.7 % Normal 11.5-15.0 [facility] Comment on above: Performed By: #### L [id number] ####[facility] ([facility])[address] [place] [address] ERYTHROCYTE MEAN CORPUSCULAR HEMOGLOBIN CONCENTRATION (G/DL) BY AUTOMATED 32.3 g/dL Normal 32.0-35.0 [facility] Comment on above: Performed By: #### L [id number] ####[facility] ([facility])[address] [place] [address] Hematocrit (Bld) [Volume fraction] 40.3 % Normal 36.0-48.0 [facility] Comment on above: Performed By: #### L [id number] ####[facility] ([facility])[address] [place] [address] Hemoglobin (Bld) [Mass/Vol] 13.0 g/dL Normal 12.0-15.0 [facility] Comment on above: Performed By: #### L [id number] ####[facility] ([facility])[address] [place] [address] MCH (RBC) [Entitic mass] 28.8 pg Normal 27.0-33.0 [facility] Comment on above: Performed By: #### L [id number] ####[facility] ([facility])[address] [place] [address] MCV (RBC) [Entitic vol] 89.2 fL Normal 82.0-98.0 [facility] Comment on above: Performed By: #### L [id number] ####[facility] ([facility])[address] [place] [address] PLATELETS (10*3/UL) IN BLOOD AUTOMATED COUNT 179 10*3/uL Normal 150-400 [facility] Comment on above: Performed By: #### L [id number] ####[facility] ([facility])[address] [place] [address] RBC (Bld) [#/Vol] 4.52 10*6/uL Normal 3.80-5.00 [facility] Comment on above: Performed By: #### L [id number] ####[facility] ([facility])[address] [place] [address] WBC (Bld) [#/Vol] 6.25 10*3/uL Normal 4.00-10.60 [facility] Comment on above: Performed By: #### L [id number] ####[facility] ([facility])[address] [place] [address] COMPREHENSIVE METABOLIC PANE Mynor 03-28-2024 Albumin [Mass/Vol] 3.5 g/dL Normal 3.5-5.7 [facility] Comment on above: Performed By: #### L [id number] ####[facility] ([facility])[address] [place] [address] ALP [Catalytic activity/Vol] 32 U/L Low 34-104 [facility] Comment on above: Performed By: #### L [id number] ####[facility] ([facility])[address] [place] [address] ALT [Catalytic activity/Vol] 13 U/L Normal 7-52 [facility] Comment on above: Performed By: #### L [id number] ####[facility] ([facility])[address] [place] [address] Anion gap [Moles/Vol] 9 mmol/L Normal 7-20 [facility] Comment on above: Performed By: #### L [id number] ####[facility] ([facility])[address] [place] [address] AST [Catalytic activity/Vol] 16 U/L Normal 13-39 [facility] Comment on above: Performed By: #### L [id number] ####[facility] ([facility])[address] [place] [address] Bilirubin [Mass/Vol] 0.6 mg/dL Normal 0.3-1.0 [facility] Comment on above: Performed By: #### L [id number] ####[facility] ([facility])[address] [place] [address] Calcium [Mass/Vol] 8.7 mg/dL Normal 8.6-10.3 [facility] Comment on above: Performed By: #### L [id number] ####[facility] ([facility])[address] [place] [address] Chloride [Moles/Vol] 106 mmol/L Normal 98-107 [facility] Comment on above: Performed By: #### L [id number] ####[facility] ([facility])[address] [place] [address] CO2 [Moles/Vol] 29 mmol/L Normal 21-[address] [facility] Comment on above: Performed By: #### L [id number] ####[facility] ([facility])[address] [place] [address] Creatinine [Mass/Vol] 0.71 mg/dL Normal 0.60-1.20 [facility] Comment on above: Performed By: #### L [id number] ####[facility] ([facility])[address] [facility] [place] [address] GLOMERULAR FILTRATION RATE ML/MIN/1.73 SQ M.PREDICTED 92.6 mL/min/1.73m*2 Normal >60.0 [facility] Comment on above: Result Comment: The [facility]???s estimated glomerular filtration rate (eGFR) will no [...] of individuals. Performed By: #### L [id number] ####[facility] ([facility])[address] [place] [address] Glucose [Mass/Vol] 92 mg/dL Normal 70-100 [facility] Comment on above: Performed By: #### L [id number] ####[facility] ([facility])[address] [place] [address] Potassium [Moles/Vol] 4.3 mmol/L Normal 3.5-5.1 [facility] Comment on above: Performed By: #### L [id number] ####[facility] ([facility])[address] [place] [address] Protein [Mass/Vol] 5.6 g/dL Low 6.0-8.3 [facility] Comment on above: Performed By: #### L [id number] ####[facility] ([facility])[address] [place] [address] Sodium [Moles/Vol] 140 mmol/L Normal 136-145 [facility] Comment on above: Performed By: #### L [id number] ####[facility] ([facility])[address] [place] [address] Urea nitrogen [Mass/Vol] 17 mg/dL Normal 7-25 [facility] Comment on above: Performed By: #### L [id number] ####[facility] ([facility])[address] [place] [address] UREA NITROGEN/CREATININE (MASS RATIO) IN SER/PLAS 23.9 Normal [facility] Comment on above: Performed By: #### L [id number] ####[facility] ([facility])[address] [place] [address] Prep for Procedureon 024 Prep for Procedure [id number] Mary Bacon 1955 F Date Provider Department Center 03/28/2024 [facility] No family history on file Normal [facility] TROPONIN Ion 03-28-2024 Troponin I.cardiac [Mass/Vol] 0.62 ng/mL Critically high 0.00-0.04 [facility] Comment on above: Result Comment: M-IL EVIOUS CRITICAL RESULT Previous result verified on 03/28/2024 0018 on specimen/case [id number] called with component Troponin I for procedure Troponin I with value 0.99 ng/mL. Performed By: #### L [id number] ####[facility] ([facility])[address] [place] [address] 30on 03-27-2024 30 Daily Case Managemen t Update Multidisciplinary rounds have been completed. Barriers to Discharge et per Progress Note/s: Original DA from [facility] on 03-25 for NSTEMI. Hep gtt. [...] OT? Answer: discharge recommendations 03/26/24 1654 Normal [facility] 30 The patient is Moderately Stable - Low risk of patient condition declining or worsening The patient's goals for the shift include complete testing The clinical goals for the shift include vss Over the shift, the patient did not make progress toward the following goals. Barriers to progression include . Recommendations to address these barriers include . Normal [facility] ANTI-XA (HEPARIN LEVEL)on HEPARIN UNFRACTIONATED (U/ML) IN PPP BY CHROMOGENIC METHOD 0.37 IU/mL Normal 0.3-0.7 [facility] Comment on above: Order Comment: Check anti-Xa level every 6 hours while on heparin infusion, or per protocol. Result Comment: [place] roxaban and Apixaban will interfere with the anti Xa assay used to monitor UFH and LMWH. Performed By: #### L [id number] #### [facility] ([facility]) [address] [place] [address] CBCon 03-27-2024 Erythrocyte distribution width (RBC) [Ratio] 13.7 % Normal 11.5-15.0 [facility] Comment on above: Performed By: #### L [id number] #### [facility] ([facility]) [address] [place] [address] ERYTHROCYTE MEAN CORPUSCULAR HEMOGLOBIN CONCENTRATION (G/DL) BY AUTOMATED 32.4 g/dL Normal 32.0-35.0 [facility] Comment on above: Performed By: #### L [id number] #### [facility] ([facility]) [address] [place] [address] Hematocrit (Bld) [Volume fraction] 41.0 % Normal 36.0-48.0 [facility] Comment on above: Performed By: #### L [id number] #### [facility] ([facility]) [address] [place] [address] Hemoglobin (Bld) [Mass/Vol] 13.3 g/dL Normal 12.0-15.0 [facility] Comment on above: Performed By: #### L [id number] #### [facility] ([facility]) [address] [place] [address] MCH (RBC) [Entitic mass] 28.5 pg Normal 27.0-33.0 [facility] Comment on above: Performed By: #### L [id number] #### [facility] ([facility]) [address] [place] [address] MCV (RBC) [Entitic vol] 88.0 fL Normal 82.0-98.0 [facility] Comment on above: Performed By: #### L [id number] #### [facility] ([facility]) [address] [place] [address] PLATELETS (10*3/UL) IN BLOOD AUTOMATED COUNT 182 10*3/uL Normal 150-400 [facility] Comment on above: Performed By: #### L [id number] #### [facility] ([facility]) [address] [place] [address] RBC (Bld) [#/Vol] 4.66 10*6/uL Normal 3.80-5.00 [facility] Comment on above: Performed By: #### L [id number] #### [facility] ([facility]) [address] [place] [address] WBC (Bld) [#/Vol] 5.82 10*3/uL Normal 4.00-10.60 [facility] Comment on above: Performed By: #### L [id number] #### [facility] ([facility]) [address] [place] [address] COMPREHENSIVE METABOLIC PANE Mynor 03-27-2024 Albumin [Mass/Vol] 3.4 g/dL Low 3.5-5.7 [facility] Comment on above: Performed By: #### L [id number] #### [facility] ([facility]) [address] [place] [address] ALP [Catalytic activity/Vol] 33 U/L Low 34-104 [facility] Comment on above: Performed By: #### L [id number] #### [facility] ([facility]) [address] [place] [address] ALT [Catalytic activity/Vol] 13 U/L Normal 7-52 [facility] Comment on above: Performed By: #### L [id number] #### [facility] ([facility]) [address] [place] [address] Anion gap [Moles/Vol] 11 mmol/L Normal 7-20 [facility] Comment on above: Performed By: #### L [id number] #### [facility] ([facility]) [address] [place] [address] AST [Catalytic activity/Vol] 18 U/L Normal 13-39 [facility] Comment on above: Performed By: #### L [id number] #### [facility] ([facility]) [address] [place] [address] Bilirubin [Mass/Vol] 0.4 mg/dL Normal 0.3-1.0 [facility] Comment on above: Performed By: #### L [id number] #### [facility] ([facility]) [address] [place] [address] Calcium [Mass/Vol] 8.6 mg/dL Normal 8.6-10.3 [facility] Comment on above: Performed By: #### L [id number] #### [facility] ([facility]) [address] [place] [address] Chloride [Moles/Vol] 107 mmol/L Normal 98-107 [facility] Comment on above: Performed By: #### L [id number] #### [facility] ([facility]) [address] [place] [address] CO2 [Moles/Vol] 28 mmol/L Normal 21-[address] [facility] Comment on above: Performed By: #### L [id number] #### [facility] ([facility]) [address] [place] [address] Creatinine [Mass/Vol] 0.69 mg/dL Normal 0.60-1.20 [facility] Comment on above: Performed By: #### L [id number] #### [facility] ([facility]) [address] [place] [address] GLOMERULAR FILTRATION RATE ML/MIN/1.73 SQ M.PREDICTED 94.5 mL/min/1.73m*2 Normal >60.0 [facility] Comment on above: Result Comment: [facility]???s estimated glomerular filtration rate (eGFR) will no [...] individuals. Performed By: #### L [id number] #### [facility] ([facility]) [address] [place] [address] Glucose [Mass/Vol] 92 mg/dL Normal 70-100 [facility] Comment on above: Performed By: #### L [id number] #### [facility] ([facility]) [address] [place] [address] Potassium [Moles/Vol] 4.2 mmol/L Normal 3.5-5.1 [facility] Comment on above: Performed By: #### L [id number] #### [facility] ([facility]) [address] [place] [address] Protein [Mass/Vol] 5.4 g/dL Low 6.0-8.3 [facility] Comment on above: Performed By: #### L [id number] #### [facility] ([facility]) [address] [place] [address] Sodium [Moles/Vol] 142 mmol/L Normal 136-145 [facility] Comment on above: Performed By: #### L [id number] #### [facility] ([facility]) [address] [place] [address] Urea nitrogen [Mass/Vol] 16 mg/dL Normal 7-25 [facility] Comment on above: Performed By: #### L [id number] #### [facility] ([facility]) [address] [place] [address] UREA NITROGEN/CREATININE (MASS RATIO) IN SER/PLAS 23.2 Normal [facility] Comment on above: Performed By: #### L [id number] #### [facility] ([facility]) [address] [place] [address] CONSULTon 03-27-2024 CONSULT -- Attestation signed by [...] no significant PMHx. She initially presented to [facility] with abdominal pain, nausea/vomiting, and diarrhea, found to be dehydrated and resuscitated with IV fluids. Patient subsequently was found to have elevated troponin, therefore was transferred to [facility] due to concern for NSTEMI. [...] 6.1 B12/Folate/Iron studies: No results found for: [id number] , FOLATE , IRON , TIBC , UIBC , IRON (more content not included)... Normal [facility] TROPONIN Ion 03-27-2024 Troponin I.cardiac [Mass/Vol] 0.99 ng/mL Critically high 0.00-0.04 [facility] Comment on above: Result Comment: M-IL EVIOUS CRITICAL RESULT Previous result verified on 03/27/2024 1708 on specimen/case [id number] called with component Troponin I for procedure Troponin I with value 0.83 ng/mL. Performed By: #### L [id number] ####[facility] ([facility])[address] [place] [address] Troponin I.cardiac [Mass/Vol] 0.83 ng/mL Critically high 0.00-0.04 [facility] Comment on above: Result Comment: M-IL EVIOUS CRITICAL RESULT Previous result verified on 03/27/2024 0148 on specimen/case [id number] called with component Troponin I for procedure Troponin I with value 2.59 ng/mL. Performed By: #### L [id number] #### [facility] ([facility]) [address] [place] [address] Troponin I.cardiac [Mass/Vol] 2.59 ng/mL Critically high 0.00-0.04 [facility] Comment on above: Result Comment: M-IL EVIOUS CRITICAL RESULT Previous result verified on 03/26/2024 1931 on specimen/case [id number] called with component Troponin I for procedure Troponin I with value 2.44 ng/mL. Performed By: #### L [id number] #### [facility] ([facility]) [address] [place] [address] 30on 03-26-2024 30 The patient is Moderately Stable - Low risk of patient condition declining or worsening The patient's goals for the shift include feel better The clinical goals for the shift include stable vitals Over the shift, the patient did not make progress toward the following goals. Barriers to progression include . Recommendations to address these barriers include . Normal [facility] 30 The patient is Moderately Stable - Low risk of patient condition declining or worsening The patient's goals for the shift include comfort The clinical goals for the shift include stable vitals Normal [facility] ANTI-XA (HEPARIN LEVEL)on HEPARIN UNFRACTIONATED (U/ML) IN PPP BY CHROMOGENIC METHOD 0.52 IU/mL Normal 0.3-0.7 [facility] Comment on above: Order Comment: Check anti-Xa level every 6 hours while on heparin infusion, or per protocol. Result Comment: [place] roxaban and Apixaban will interfere with the anti Xa assay used to monitor UFH and LMWH. Performed By: #### L [id number] #### [facility] (BEAKER) [address] [place] [address] HEPARIN UNFRACTIONATED (U/ML) IN PPP BY CHROMOGENIC METHOD 0.65 IU/mL Normal 0.3-0.7 [facility] Comment on above: Order Comment: Check anti-Xa level every 6 hours while on heparin infusion, or per protocol. Result Comment: [place] roxaban and Apixaban will interfere with the anti Xa assay used to monitor UFH and LMWH. Performed By: #### L [id number] #### [facility] ([facility]) [address] [place] [address] HEPARIN UNFRACTIONATED (U/ML) IN PPP BY CHROMOGENIC METHOD 0.80 IU/mL High 0.3-0.7 [facility] Comment on above: Order Comment: Check anti-Xa level every 6 hours while on heparin infusion, or per protocol. Result Comment: [place] roxaban and Apixaban will interfere with the anti Xa assay used to monitor UFH and LMWH. Performed By: #### L [id number] #### [facility] ([facility]) [address] [place] [address] CBCon 03-26-2024 Erythrocyte distribution width (RBC) [Ratio] 13.8 % Normal 11.5-15.0 [facility] Comment on above: Performed By: #### L [id number] #### [facility] ([facility]) [address] [place] [address] ERYTHROCYTE MEAN CORPUSCULAR HEMOGLOBIN CONCENTRATION (G/DL) BY AUTOMATED 33.1 g/dL Normal 32.0-35.0 [facility] Comment on above: Performed By: #### L [id number] #### [facility] ([facility]) [address] [place] [address] Hematocrit (Bld) [Volume fraction] 40.8 % Normal 36.0-48.0 [facility] Comment on above: Performed By: #### L [id number] #### [facility] ([facility]) [address] [place] [address] Hemoglobin (Bld) [Mass/Vol] 13.5 g/dL Normal 12.0-15.0 [facility] Comment on above: Performed By: #### L [id number] #### [facility] ([facility]) [address] [place] [address] MCH (RBC) [Entitic mass] 29.0 pg Normal 27.0-33.0 [facility] Comment on above: Performed By: #### L [id number] #### [facility] ([facility]) [address] [place] [address] MCV (RBC) [Entitic vol] 87.6 fL Normal 82.0-98.0 [facility] Comment on above: Performed By: #### L [id number] #### [facility] ([facility]) [address] [place] [address] PLATELETS (10*3/UL) IN BLOOD AUTOMATED COUNT 179 10*3/uL Normal 150-400 [facility] Comment on above: Performed By: #### L [id number] #### [facility] ([facility]) [address] [place] [address] RBC (Bld) [#/Vol] 4.66 10*6/uL Normal 3.80-5.00 [facility] Comment on above: Performed By: #### L [id number] #### [facility] ([facility]) [address] [place] [address] WBC (Bld) [#/Vol] 7.11 10*3/uL Normal 4.00-10.60 [facility] Comment on above: Performed By: #### L [id number] #### [facility] ([facility]) [address] [place] [address] CONSULTon 03-26-2024 CONSULT -- Attestation signed by [...] elevated troponin the patient initially went to [facility] due to symptoms of abdominal [...] Value Ventricular Rate 67 Atrial Rate 67 IL Interval 142 QRS DURATION 70 QT Interval 448 QTC CALCULATION(BAZETT) 473 P Terrell 83 R-Terrell -5 T Wave Terrell -22 Impression Normal sinus rhythm Possible Inferior [...] cardiology will follow along Sudhir Gayle MD Management Architect - PGY4 [facility] Normal [facility] HEMOGLOBIN A1Con 03-26-2024 Glucose [Mass/Vol] 123 mg/dL Normal [facility] Comment on above: Performed By: #### L [id number] #### [facility] ([facility]AKER) [address] [place] [address] HbA1c (Bld) [Mass fraction] 5.9 % Normal 4.0-6.0 [facility] Comment on above: Performed By: #### L [id number] #### [facility] (AKER) [address] [place] [address] HPon 03-26-2024 HP -- Attestation signed by [...] elevated troponin the patient initially went to [facility] due to symptoms of abdominal [...] Value Ventricular Rate 67 Atrial Rate 67 IL Interval 142 QRS DURATION 70 QT Interval 448 QTC CALCULATION(BAZETT) 473 P Terrell 83 R-Terrell -5 T Wave Terrell -22 Impression Normal sinus rhythm Possible Inferior [...] cardiology will follow along Sudhir Gayle MD Management Architect - PGY4 [facility] Normal [facility] LIPID PANELon 03-26-2024 CHOL/HDL 4.0 mg/dL Normal [facility] Comment on above: Performed By: #### L [id number] ####[facility] ([facility]AKER)[address] [place] [address] Cholesterol [Mass/Vol] 135 mg/dL Normal 120-200 [facility] Comment on above: Performed By: #### L [id number] ####[facility] ([facility])[address] [place] [address] Magnesium [Mass/Vol] 55 mg/dL Normal 40-149 [facility] Comment on above: Result Comment: TRIG LYCERIDE REFERENCE RANGE: 20 YEARS AND OLDER CARDIOVASCULAR RISK LESS THAN 150 mg/dL LOW RISK 150 TO 199 mg/dL BORDERLINE RISK 200 mg/dL AND GREATER HIGH RISK Performed By: #### L [id number] ####[facility] ([facility])[address] [facility] [address] Magnesium [Mass/Vol] 90 mg/dL Normal 0-160 [facility] Comment on above: Performed By: #### L [id number] ####[facility] ([facility])[address] [facility] [address] Magnesium [Mass/Vol] 34 mg/dL Normal 23-92 [facility] Comment on above: Performed By: #### L [id number] ####[facility] ([facility])[address] [place] [address] NON HDL CHOL. (LDL+VLDL) 101 Normal [facility] Comment on above: Performed By: #### L [id number] ####[facility] ([facility])[address] [place] [address] TOTAL VLDL-C 11 mg/dL Normal 0-40 [facility] Comment on above: Performed By: #### L [id number] ####[facility] ([facility])[address] [facility] [place] [address] TROPONIN Ion 03-26-2024 Troponin I.cardiac [Mass/Vol] 2.44 ng/mL Critically high 0.00-0.04 [facility] Comment on above: Result Comment: M-IL EVIOUS CRITICAL RESULT Previous result verified on 03/26/2024 0052 on specimen/case 24H- called with component Troponin I for procedure Troponin I with value 2.77 ng/mL. Performed By: #### L [id number] #### [facility] ([facility]) [address] [place] [address] Troponin I.cardiac [Mass/Vol] 2.07 ng/mL Critically high 0.00-0.04 [facility] Comment on above: Result Comment: M-IL EVIOUS CRITICAL RESULT Previous result verified on 03/26/202451 on specimen/case 24H- called with component Troponin I for procedure Troponin I with value 2.77 ng/mL. Performed By: #### L [id number] ####[facility] ([facility])[address] [place] [address] Troponin I.cardiac [Mass/Vol] 3.34 ng/mL Critically high 0.00-0.04 [facility] Comment on above: Result Comment: M-IL EVIOUS CRITICAL RESULT Previous result verified on 03/26/202451 on specimen/case 24H- called with component Troponin I for procedure Troponin I with value 2.77 ng/mL. Performed By: #### L [id number] #### [facility] ([facility]) [address] [place] [address] URINALYSISon 03-26-2024 BILIRUBIN, TOTAL PRESENCE IN URINE Negative Normal Negative [facility] Comment on above: Performed By: #### L [id number] #### [facility] ([facility]) [address] [place] [address] Clarity (U) Slightly Cloudy Abnormal Clear [facility] Comment on above: Performed By: #### L [id number] #### [facility] ([facility]) [address] [place] [address] Color (U) Yellow Normal Yellow [facility] Comment on above: Performed By: #### L [id number] #### [facility] ([facility]) [address] [facility] [place] [address] Glucose (U) [Mass/Vol] Negative Normal Negative [facility] Comment on above: Performed By: #### L [id number] #### [facility] ([facility]) [address] [facility] [place] [address] HEMOGLOBIN PRESENCE IN URINE Negative Normal Negative [facility] Comment on above: Performed By: #### L [id number] #### [facility] ([facility]) [address] [place] [address] Ketones Ql (U) 20 mg/dL Abnormal Negative [facility] Comment on above: Performed By: #### L [id number] #### [facility] ([facility]) [address] [place] [address] LEUKOCYTE ESTERASE PRESENCE IN URINE BY TEST STRIP Large Abnormal Negative [facility] Comment on above: Performed By: #### L [id number] #### [facility] ([facility]) [address] [place] [address] NITRITE PRESENCE IN URINE Negative Normal Negative [facility] Comment on above: Performed By: #### L [id number] #### [facility] ([facility]) [address] [place] [address] pH (U) 5.0 [pH] Normal 5.0-8.0 [facility] Comment on above: Performed By: #### L [id number] #### [facility] ([facility]) [address] [place] [address] Protein (U) [Mass/Vol] Negative Normal Negative [facility] Comment on above: Performed By: #### L [id number] #### [facility] ([facility]) [address] [place] [address] Specific gravity (U) [Rel density] 1.025 High 1.015-1.020 [facility] Comment on above: Performed By: #### L [id number] #### [facility] ([facility]) [address] [place] [address] URINALYSIS MICROSCOPICon CASTS IN URINE Normal [facility] Comment on above: Performed By: #### L [id number] #### [facility] ([facility]) [address] [place] [address] CRYSTALS IN URINE Normal [facility] Comment on above: Performed By: #### L [id number] #### [facility] ([facility]) [address] [place] [address] MUCUS (#/HPF) IN URINE SEDIMENT Moderate Abnormal None Seen, Occasional, Few [facility] Comment on above: Performed By: #### L [id number] #### [facility] ([facility]) [address] [place] [address] RBC (#/HPF) IN URINE SEDIMENT 0-2 Abnormal None Seen [facility] Comment on above: Performed By: #### L [id number] #### [facility] ([facility]) [address] [place] [address] SQUAMOUS EPITHELIAL CELLS (#/HPF) IN URINE SEDIMENT Many Abnormal None Seen, Occasional [facility] Comment on above: Performed By: #### L [id number] #### [facility] ([facility]) [address] [place] [address] WBC (LEUKOCYTE) (#/HPF) IN URINE SEDIMENT 21-50 Abnormal None Seen [facility] Comment on above: Performed By: #### L [id number] #### [facility] ([facility]) [address] [place] [address] APTTon 03-25-2024 ACTIVATED PARTIAL THROMBOPLASTIN TIME IN PPP BY COAGULATION ASSAY 24.4 Seconds Low 25.0-35.0 [facility] Comment on above: Order Comment: Basel ine aPTT before initiating heparin infusion. Result Comment: Clin ical significance of the APTT is questionable in the presence of heparin. Performed By: #### L [id number] ####[facility] ([facility])[address] [facility] [place] [address] B-TYPE NATRIURETIC PEPTIDEon 03-25-2024 Natriuretic peptide B (Bld) [Mass/Vol] 267 pg/mL High 0-100 [facility] Comment on above: Performed By: #### L [id number] ####[facility] ([facility])[address] [place] [address] BASIC METABOLIC PANELon - 0-2023 Anion gap [Moles/Vol] 12 mmol/L Normal 7-20 [facility] Comment on above: Performed By: #### L [id number] ####[facility] (BEAKER)[address] [place] [address] Calcium [Mass/Vol] 8.6 mg/dL Normal 8.6-10.3 [facility] Comment on above: Performed By: #### L [id number] ####[facility] (BEAKER)[address] [place] [address] Chloride [Moles/Vol] 107 mmol/L Normal 98-107 [facility] Comment on above: Performed By: #### L [id number] ####[facility] (BEAKER)[address] [place] [address] CO2 [Moles/Vol] 24 mmol/L Normal 21-[address] [facility] Comment on above: Performed By: #### L [id number] ####[facility] ([facility])[address] [place] [address] Creatinine [Mass/Vol] 0.68 mg/dL Normal 0.60-1.20 [facility] Comment on above: Performed By: #### L [id number] ####[facility] ([facility])[address] [place] [address] GLOMERULAR FILTRATION RATE ML/MIN/1.73 SQ M.PREDICTED 94.8 mL/min/1.73m*2 Normal >60.0 [facility] Comment on above: Result Comment: [facility]???s estimated glomerular filtration rate (eGFR) will no [...] of individuals. Performed By: #### L [id number] ####[facility] (BEAKER)[address] [place] [address] Glucose [Mass/Vol] 105 mg/dL High 70-100 [facility] Comment on above: Performed By: #### L [id number] ####[facility] ([facility])[address] [place] [address] Potassium [Moles/Vol] 3.8 mmol/L Normal 3.5-5.1 [facility] Comment on above: Performed By: #### L [id number] ####[facility] ([facility])[address] [place] [address] Sodium [Moles/Vol] 139 mmol/L Normal 136-145 [facility] Comment on above: Performed By: #### L [id number] ####[facility] ([facility])[address] [place] [address] Urea nitrogen [Mass/Vol] 12 mg/dL Normal 7-25 [facility] Comment on above: Performed By: #### L [id number] ####[facility] ([facility])[address] [place] [address] UREA NITROGEN/CREATININE (MASS RATIO) IN SER/PLAS 17.6 Normal [facility] Comment on above: Performed By: #### L [id number] ####[facility] ([facility])[address] [place] [address] CBC WITH AUTO DIFFERENTIALon 03-25-2024 Basophils (Bld) [#/Vol] 0.05 10*3/uL Normal 0.00-0.20 [facility] Comment on above: Performed By: #### L [id number] ####[facility] ([facility])[address] [place] [address] Basophils/100 WBC (Bld) 0.6 % Normal 0.0-1.0 [facility] Comment on above: Performed By: #### L [id number] ####[facility] ([facility])[address] [place] [address] Eosinophils (Bld) [#/Vol] 0.15 10*3/uL Normal 0.00-0.50 [facility] Comment on above: Performed By: #### L [id number] ####[facility] (BEAKER)[address] [place] [address] Eosinophils/100 WBC (Bld) 1.8 % Normal 0.0-6.0 [facility] Comment on above: Performed By: #### L [id number] ####[facility] (BEAKER)[address] [place] [address] Erythrocyte distribution width (RBC) [Ratio] 13.8 % Normal 11.5-15.0 [facility] Comment on above: Performed By: #### L [id number] ####[facility] (BEAKER)[address] [place] [address] ERYTHROCYTE MEAN CORPUSCULAR HEMOGLOBIN CONCENTRATION (G/DL) BY AUTOMATED 31.8 g/dL Low 32.0-35.0 [facility] Comment on above: Performed By: #### L [id number] ####[facility] ([facility])[address] [place] [address] Hematocrit (Bld) [Volume fraction] 44.6 % Normal 36.0-48.0 [facility] Comment on above: Performed By: #### L [id number] ####[facility] (BEAKER)[address] [place] [address] Hemoglobin (Bld) [Mass/Vol] 14.2 g/dL Normal 12.0-15.0 [facility] Comment on above: Performed By: #### L [id number] ####[facility] (BEAKER)[address] [place] [address] Immature granulocytes (Bld) [#/Vol] 0.03 10*3/uL Normal 0.00-0.20 [facility] Comment on above: Performed By: #### L [id number] ####[facility] (BEAKER)[address] [place] [address] Immature granulocytes/100 WBC (Bld) 0.4 % Normal 0.0-1.0 [facility] Comment on above: Performed By: #### L [id number] ####[facility] (BEAKER)[address] [place] [address] Lymphocytes (Bld) [#/Vol] 1.52 10*3/uL Normal 1.20-4.00 [facility] Comment on above: Performed By: #### L [id number] ####[facility] (BEAKER)[address] [place] [address] Lymphocytes/100 WBC (Bld) 18.4 % Low 20.0-45.0 [facility] Comment on above: Performed By: #### L [id number] ####[facility] (BEAKER)[address] [place] [address] MCH (RBC) [Entitic mass] 29.2 pg Normal 27.0-33.0 [facility] Comment on above: Performed By: #### L [id number] ####[facility] (BEAKER)[address] [place] [address] MCV (RBC) [Entitic vol] 91.8 fL Normal 82.0-98.0 [facility] Comment on above: Performed By: #### L [id number] ####[facility] (BEAKER)[address] [place] [address] Monocytes (Bld) [#/Vol] 0.58 10*3/uL Normal 0.10-1.00 [facility] Comment on above: Performed By: #### L [id number] ####[facility] (BEAKER)[address] [place] [address] Monocytes/100 WBC (Bld) 7.0 % Normal 5.0-12.0 [facility] Comment on above: Performed By: #### L [id number] ####[facility] (BEAKER)[address] [place] [address] Neutrophils (Bld) [#/Vol] 5.91 10*3/uL Normal 1.60-7.60 [facility] Comment on above: Performed By: #### L [id number] ####[facility] (BEAKER)[address] [place] [address] Neutrophils/100 WBC (Bld) 71.8 % Normal 40.0-72.0 [facility] Comment on above: Performed By: #### L [id number] ####[facility] ([facility])[address] [place] [address] NRBC (PER 100 WBCS) BY AUTOMATED COUNT 0.0 % Normal 0 [facility] Comment on above: Performed By: #### L [id number] ####[facility] ([facility])[address] [place] [address] PLATELETS (10*3/UL) IN BLOOD AUTOMATED COUNT 201 10*3/uL Normal 150-400 [facility] Comment on above: Performed By: #### L [id number] ####[facility] ([facility])[address] [place] [address] RBC (Bld) [#/Vol] 4.86 10*6/uL Normal 3.80-5.00 [facility] Comment on above: Performed By: #### L [id number] ####[facility] ([facility])[address] [place] [address] WBC (Bld) [#/Vol] 8.24 10*3/uL Normal 4.00-10.60 [facility] Comment on above: Performed By: #### L [id number] ####[facility] ([facility])[address] [place] [address] HEPATIC FUNCTION PANELon Albumin [Mass/Vol] 3.8 g/dL Normal 3.5-5.7 [facility] Comment on above: Performed By: #### L [id number] #### [facility] ([facility]) [address] [place] [address] ALP [Catalytic activity/Vol] 35 U/L Normal 34-104 [facility] Comment on above: Performed By: #### L [id number] #### [facility] ([facility]) [address] [place] [address] ALT [Catalytic activity/Vol] 21 U/L Normal 7-52 [facility] Comment on above: Performed By: #### L [id number] #### [facility] ([facility]) [address] [place] [address] AST [Catalytic activity/Vol] 32 U/L Normal 13-39 [facility] Comment on above: Performed By: #### L [id number] #### [facility] ([facility]) [address] [place] [address] Bilirubin [Mass/Vol] 0.8 mg/dL Normal 0.3-1.0 [facility] Comment on above: Performed By: #### L [id number] #### [facility] ([facility]) [address] [place] [address] Magnesium [Mass/Vol] 0.1 mg/dL Normal 0-0.2 [facility] Comment on above: Performed By: #### L [id number] #### [facility] ([facility]) [address] [place] [address] Protein [Mass/Vol] 6.1 g/dL Normal 6.0-8.3 [facility] Comment on above: Performed By: #### L [id number] #### [facility] ([facility]) [address] [place] [address] MAGNESIUMon 03-25-2024 Magnesium [Mass/Vol] 2.0 mg/dL Normal 1.9-2.7 [facility] Comment on above: Performed By: #### L [id number] ####[facility] ([facility])[address] [place] [address] PHOSPHORUSon 03-25-2024 Magnesium [Mass/Vol] 3.1 mg/dL Normal 2.5-5.0 [facility] Comment on above: Performed By: #### L [id number] ####[facility] ([facility])[address] [place] [address] PROTIME-INRon 03-25-2024 INR IN PPP BY COAGULATION ASSAY 1.11 High 0.90-1.10 [facility] Comment on above: Result Comment: ACCC P [...] CHEST 1995;[id number]. Performed By: #### L [id number] ####[facility] ([facility])[address] [place] [address] PROTHROMBIN TIME (PT) IN PPP BY COAGULATION ASSAY 14.3 Seconds Normal 12.3-14.8 [facility] Comment on above: Performed By: #### L [id number] ####[facility] ([facility])[address] [place] [address] TROPONIN Ion 03-25-2024 Troponin I.cardiac [Mass/Vol] 2.77 ng/mL Critically high 0.00-0.04 [facility] Comment on above: Result Comment: SANDY MARTINEZ INITIAL CRITICAL HIGH; RESPUN AND RETESTED Performed By: #### L [id number] #### [facility] ([facility]) [address] [place] [address] Family Medicine Office/Clini c Noteon 03-17-2024 Family [...] vac - Not Given Patient Refuses Normal [facility] Comment on above: Result Comment: Elec tronically Signed By: Millie Florentino\.br\Date and Time Signed: 03/17/24 15:22 EDT Consenton 02-09-2024 Consent [id number]#[id number] [facility] Ambulatory Visit Summaryon 0 02-08-2024 Ambulatory [...] Follow-Up Appointments 2023 1:00 PM EDT Where: [facility] [place] [facility] Family Medicine Office/Clini c Noteon 02-08-2024 Family Medicine Office/Clinic Note HPI Staff Jess is a 68 year old female presenting for Pt went to urgent care in [place] 01/31 started on Amoxcillin Onset: 9 days [...] 5y-11y) vac - Not Given Patient Refuses [facility] Comment on above: Result Comment: Elec tronically Signed By: Millie Florentino\tyler\Date and Time Signed: 02/08/24 15:31 EDT Consultation Noteon 02-01-20 Consultation Note [id number]#1.00 TIFF [facility] Formson 02-01-2024 Forms [id number] 0TIFF [facility] Physician Referralon 024 Physician Referral [id number]#1.[address] [facility] Ambulatory Visit Summaryon 0 12-17-2023 Ambulatory [...] Follow-Up Appointments 2023 1:00 PM EDT Where: [facility] [place] [facility] Family Medicine Office/Clini c Noteon 12-17-2023 Family [...] does not want to go back to [place]. will refer to Dr. Dickerson in [place]. RTC 3 months. note provided to work no more than 8 hours per day and no vibrating tools Ordered: [facility] External Ambulatory Referral Body mass index [BMI] [...] - Not Given Patient Refuses Normal [facility] Comment on above: Result Comment: Elec tronically Signed By: Millie Florentino\.br\Date and Time Signed: 12/17/23 15:12 EDT Provider Letteron 12-17-2023 Provider Letter December 17, [address]ON [address] [place] [id number] : 1955 To Whom It May Concern, Jess may work no more than 8 hours per day. Please continue to not use vibrating hand tools. This will continue through December, January, and February 2024. If you have any questions please do not hesitate to contact my office. Date of Illness: From: December 2023 To: February 2024 Sincerely, JAH [facility] [address] [facility] Consultation Noteon 11-10-19 Consultation Note [id number] [facility] Family Medicine Office/Clini c Noteon 10-31-2023 Family Medicine Office/Clinic Note Chief Complaint diagnosed with bronchitis 10/25- not feeling better HPI Staff 67 year old female presents with bronchitis that is worsening, pain in ribs when coughing was seen at [facility] in [place] 10/25 and was diagnosed with bronchitis was given steroids- has 2 more days but does not feel any better History of Present Illness Reviewed and agree with above documented HPI by medical radiation therapist. Portions of this record may have been created with voice recognition artificial intelligence software, specifically Blinkiverse, PlanetEye and or SocialSign.in. Substitutions may have occurred due to the inherent limitations of voice recognition and artificial intelligence software. Patient is a 67-year-old female who presents to convenient care, for sinus congestion, sore throat, and a nonproductive cough. Patient states symptom has been going on for over 2-1/2 weeks, states this past Wednesday she was seen at an urgent care in [facility], states she was diagnosed with bronchitis [...] to 3 weeks ago, has been taking uyyk-xmy-hevxmzy medication without any relief, did appear ill but not septic, no respiratory distress or difficulty swallowing is noted. He was given a prescription of Zithromax, prefer no prescription for cough or prednisone at this time. Patient was instructed take mvmj-vwt-raalyek ibuprofen Tylenol as needed for body aches, fevers, headaches. Drink plenty water stay hydrated. Given a work excuse note. Follow-up with primary care provider. 1. Acute frontal sinusitis (J01.10: Acute frontal sinusitis, unspecified) See above 2. Acute bronchitis (J20.9: Acute bronchitis, unspecified) See above Follow-up With When Contact Information Carlos BARRON, Millie Gallagher, JO, MED Additional Instructions: Patient Education Acute Bronchitis, Adult, Smkt-qa-Nhyo Sinus Infection, Adult, Cjjo-lq-Elai Problem List/Past Medical History Ongoing Acute bronchitis Acute frontal sinusitis Anxiety disorder Breast cancer screening by mammogram Dupuytrens contracture Ingrown right big toenail Lower extremity neuropathy Onychomycosis Osteoarthritis of lumbosacral spine Radiculopathy Right elbow pain Sore t (more content not included)... Normal [facility] Comment on above: Result Comment: Elec [...] ? Medicines that treat allergies (antihistamines). ? Lsmo-tsx-vsdpudw pain relievers. ? If caused by bacteria, your doctor may wait to see if you will get better without treatment. You may be given antibiotic medicine if you have: ? A very bad infection. ? A weak body defense system. ? If caused by growths in the nose, surgery may be needed. Follow these instructions at home: Medicines ? 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 ? Do not smoke. Avoid being around [...] follow-up visits (more content not included)... Normal [facility] Patient Letter FTon 2023 Patient Letter [facility] [address] [place] [address] October 29, 20[address]ESS [address]ON [address] [place] [phone] : 1955 Please excuse JESS BACON from work . Date and/or Time of Absence: From: 10/29/23 May return to work on: 11/01/23 Restrictions: None Comments: Please excuse due to an acute illness. Provider Signature: Phillip Nunez PA-C [address] [place] [address] [place] [address] [facility] Ambulatory Visit Summaryon 0 09-30-2023 Ambulatory Visit Summary JESS BACON :1955 Visit Date:09/30/2023 Ambulatory Visit Instructions Your Diagnosis Trigger ring finger of right hand Ingrown right big toenail BMI 22.0-22.9, adult Non-smoker Your Care Team Attending Physician - Millie Florentino Primary Care Physician - Millie Florentino This Is Your Medications List [facility] Prescription (Compression stockings) cholecalciferol (Vitamin D3 2000 [...] Follow-Up Appointments 2023 1:00 PM EDT Where: [facility] [place] [facility] Medicine Office/Clini c Noteon 09-30-2023 Family Medicine Office/Clinic Note HPI Staff Jess is a 67 year old female presenting for 3 month follow up Pain characteristics: Pain location: Right elbow with Radiculopathy ([facility] 06/30/23 Medrol dose pack ordered) [...] Daily, # 30 tab(s), Refills(s) 0, Pharmacy: [facility] 1429, 158, cm, 09/30/23 11:26:00 EST, Height/Length Dosing, 55.1, kg, 09/30/23 11:26:00 EST, Weight Dosing methylPREDNISolone, = 1 packet(s), Oral, As Directed, as directed on package labeling, X 6 day(s), # 21 tab(s), Refills(s) 0, Pharmacy: [facility] 1429, 158, cm, 09/30/23 11:26:00 EST, Height/Length Dosing, 55.1, kg, 09/30/23 11:26:00 EST, Weight Dosing 2. Ingrown right big toenail (L60.0: Ingrowing nail) right big toe nail ingrown. will refer to Dr. Schultz Ordered: [facility] External Ambulatory Referral 3. BMI 22.0-22.9, adult (Z68.22: Body mass index [BMI] 22.0-22.9, adult) BMI education complete Ordered: meloxicam, 7.5 mg = 1 tab(s), Oral, Daily, # 30 tab(s), Refills(s) 0, Pharmacy: [facility] 1429, 158, cm, 09/30/23 11:26:00 EST, Height/Length Dosing, 55.1, kg, 09/30/23 11:26:00 EST, Weight Dosing methylPREDNISolone, = 1 packet(s), Oral, As Directed, as directed on package labeling, X 6 day(s), # 21 tab(s), Refills(s) 0, Pharmacy: [facility] 1429, 158, cm, 09/30/23 11:26:00 EST, Height/Length Dosing, 55.1, kg, 09/30/23 11:26:00 EST, Weight Dosing 4. Non-smoker (Z78.9: Other specified health status) continue not smoking Ordered: meloxicam, 7.5 mg = 1 tab(s), Oral, Daily, # 30 tab(s), Refills(s) 0, Pharmacy: [facility] 1429, 158, cm, 09/30/23 11:26:00 EST, Height/Length Dosing, 55.1, kg, 09/30/23 11:26:00 EST, Weight Dosing methylPREDNISolone, = 1 packet(s), Oral, As Directed, as directed on package labeling, X 6 day(s), # 21 tab(s), Refills(s) 0, Pharmacy: [facility] 1429, 158, cm, 09/30/23 11:26:00 EST, Height/Length Dosing, 55.1, kg, 09/30/23 11:26:00 EST, Weight Dosing Orders: escitalopram, 10 mg = 1 tab(s), Oral, Daily, X 90 day(s), # 90 tab(s), Refills(s) 3, Pharmacy: [id number], 157, cm, 04/23/23 13:50:00 EDT, Height/Length Dosing, [...] 3 refills, Not (more content not included)... [facility] Comment on above: Result Comment: Elec tronically Signed By: Millie Florentino\.br\Date and Time Signed: 09/30/23 11:46 EST Physician Referralon 024 Physician Referral [id number]#1.0 0TIFF [facility] Provider Letteron 09-30-2023 Provider Letter September 30, 2023 [place] [address] : 1955 To Whom It May Concern, [...] Restrictions: _ See Above Comments: _ Sincerely, [address] [address] [facility] Vital Signs Date Time Vital Sign Value Performing Clinician Facility 07-19-2024 15:52-0500 Blood Pressure Location Addy VELA [facility] 07-19-2024 15:52-0500 Diastolic blood pressure 58 mm[Hg] Addy VELA [facility] 07-19-2024 15:52-0500 Heart rate 72 /min Addy VELA [facility] 07-19-2024 15:52-0500 Respiratory rate 16 /min Addy VELA [facility] 07-19-2024 15:52-0500 Systolic blood pressure 122 mm[Hg] Addy VELA [facility] 05-27-2024 14:05-0400 Body height 156.21 cm MD Luisito Roth Work Phone: [facility] 05-27-2024 14:05-0400 Body mass index (BMI) [Ratio] 21.4 kg/m2 MD Luisito Roth Work Phone: [facility] 05-27-2024 14:05-0400 Body temperature 98.2 [degF] MD Luisito Roth Work Phone: [facility] 05-27-2024 14:05-0400 Body weight 52.16 kg MD Luisito Roth Work Phone: [facility] 05-27-2024 14:05-0400 Diastolic blood pressure 69 mm[Hg] MD Luisito Roth Work Phone: [facility] 05-27-2024 14:05-0400 Heart rate 56 /min MD Luisito Roth Work Phone: [facility] 05-27-2024 14:05-0400 SaO2% (BldA) [Mass fraction] 98 % MD Luisito Roth Work Phone: [facility] 05-27-2024 14:05-0400 Systolic blood pressure 128 mm[Hg] MD Luisito Roth Work Phone: [facility] 10-29-2023 13:26-0500 Blood Pressure Location PHILLIP NUNEZ [facility] 10-29-2023 13:26-0500 Body temperature 97.88 [degF] MARTIN NUNEZ [facility] 10-29-2023 13:26-0500 Diastolic blood pressure 80 mm[Hg] MARTIN NUNEZ [facility] 10-29-2023 13:26-0500 Heart rate 77 /min MARTIN NUNEZ [facility] 10-29-2023 13:26-0500 SaO2% (BldA) [Mass fraction] 96 % [facility] 10-29-2023 13:26-0500 Systolic blood pressure 120 mm[Hg] [facility] Encounters Encounter Date Encounter Type Care Provider Facility Start: 08-31-2024 End: 08-31-2024 ambulatory Millie L Carlos Facility:[facility] [place] Start: 07-19-2024 End: 07-19-2024 ambulatory Addy VELA Facility: [place] Start: 07-19-2024 End: 07-19-2024 Patient encounter procedure Addy VELA [facility] [place] Start: 06-06-2024 End: 06-06-2024 ambulatory Millie L Carlos [place] [facility] [place] Start: 06-01-2024 End: 06-01-2024 ambulatory Millie L Carlos Facility: [facility] [place] Start: 05-29-2024 End: 05-29-2024 ambulatory Millie L Carlos Facility:[facility] [place] Start: 05-27-2024 End: 05-27-2024 ambulatory MD Luisito Roth Work Phone: [facility] Work Phone: Start: 05-27-2024 End: 05-27-2024 Patient encounter procedure MD Luisito Roth Work Phone: [facility] Work Phone: Start: 05-12-2024 End: 05-12-2024 ambulatory Millie L Carlos Facility:[facility] [place] Start: 04-21-2024 End: 04-21-2024 ambulatory [facility] Start: 04-19-2024 End: 04-19-2024 ambulatory Millie L Carlos Facility:[facility] [place] Start: 04-12-2024 End: 04-12-2024 ambulatory Millie L Carlos [place]: [facility] [place] Start: 04-06-2024 End: 04-06-2024 ambulatory MD Luisito Roth Facility: [facility] [place] Start: 03-31-2024 End: 05-01-2024 ambulatory MD Luisito Roth Facility:CD:[id number] Start: 03-29-2024 ambulatory Millie L Carlos Facility: [facility] [place] Start: 03-28-2024 Evaluation and management of inpatient MAXIMINO CANCINO [facility] Start: 03-27-2024 [facility] management [facility] Start: 03-26-2024 Evaluation and management of inpatient MAXIMINO CANCINO [facility] Start: 03-25-2024 Evaluation and management of [facility] Start: 03-25-2024 End: 03-30-2024 Evaluation and management of inpatient SUDHIR CHRISTINE [facility] Start: 03-17-2024 End: 03-17-2024 ambulatory Millie L Carlos [place]: [facility] [place] Start: 02-08-2024 End: 02-08-2024 ambulatory Millie L Carlos Facility:[facility] [place] Start: 01-20-2024 End: 01-20-2024 ambulatory LARISSA SUTTON Not Available Start: 12-31-2023 End: 12-31-2023 ambulatory LAUREANO AMARAL Not Available Start: 12-17-2023 End: 12-17-2023 ambulatory Millie L Carlos Facility:[facility] [place] Start: 10-29-2023 End: 10-29-2023 ambulatory PHILLIP NUNEZ Facility:[facility] Start: 10-29-2023 End: 10-29-2023 Patient encounter procedure PHILLIP NUNEZ [facility] Start: 09-30-2023 End: 09-30-2023 ambulatory Millie L Carlos Facility:[facility] [place] Start: 07-17-2022 End: 07-17-[address] GINA [...] Activity Detail Author Start: 06-04-2025 ambulatory Ambulatory Facility:[facility] Patient Education Low back pain in adults [facility] Work Phone: Immunizations Immunization Date Immunization Notes Care Provider Ginette marques NEGATED: Highlighted row has not occurred!06-01-2024 influenza virus vaccine, unspecified formulation Addy VELA [facility] NEGATED: Highlighted row has not occurred!11-30-2022 influenza virus vaccine, unspecified formulation PHILLIP NUNEZ [facility] NEGATED: Highlighted row has not occurred!11-30-2022 SARS-CoV-2 mRNA (tozinameran 5y-11y) vaccine PHILLIP NUNEZ [facility] Payers Date Payer Category Payer Self-pay [id number] 2024 Unknown [id number] 2023 Unknown [id number] 1959 Unknown [id number] 1955 Unknown [id number] 2.16.84 0.1.730169.3.579.2.593 1955 Unknown [id number] 2.16.84 0.1.295250.3.579.2.125 1955 Unknown [id number] 2.16.84 0.1.300070.3.579.2.1258 1955 Unknown [id number] 2.16.84 0.1.506751.3.579.2.125 1955 Unknown [id number] 2.16.84 0.1.120508.3.579.2.125 1955 Unknown [id number] 2.16.8 40.1.474522.3.579.2.72 1955 Unknown [id number] 2.16.8 40.1.943814.3.579.2. 1955 Unknown [id number] 2.16.8 40.1.741563.3.579.2. 1955 Unknown [id number] 2.16.8 40.1.992086.3.579.2. 1955 Unknown [id number] 2.16.8 40.1.960054.3.579.2. 1955 Unknown [id number] 2.16.8 40.1.153836.3.579.2.72 1955 Unknown [id number] 2.16.8 40.1.911393.3.579.2. 1955 Unknown [id number] 2.16.8 40.1.871398.3.579.2.72 1955 Unknown [id number] 2.16.8 40.1.465259.3.579.2. 1955 Unknown [id number] 2.16.8 40.1.398150.3.579.2.72 1955 Unknown [id number] 2.16.8 40.1.526135.3.579.2. 1955 Unknown [id number] 2.16.8 40.1.204860.3.579.2.727 1955 Unknown [id number] 2.16.8 40.1.182837.3.579.2.727 1955 Unknown [id number] 2.16.8 40.1.709065.3.579.2.727 1955 Unknown [id number] 2.16.8 40.1.328985.3.579.2.727 1955 Unknown [id number] 2.16.8 40.1.030763.3.579.2.727 1955 Unknown [id number] 2.16.8 40.1.413790.3.579.2.727 Medicare Medicare [id number] 17c [id number] Unknown [id number] 2.16.8 40.1.993949.3.579.2.531 Social History Date Type Detail Facility Start: 10-29-2023 End: 07-19-2024 Tobacco smoking status Never smoked tobacco (finding) [facility] Comment on above: denies use. Tobacco smoking status Never [facility] Comment on above: denies use. Sex Assigned At Female [facility] Start: 1955 Sex Assigned At Female [facility] Functional Status Date Assessment Result Facility 07-19-2024 Functional Status N/A [facility] [place] 10-29-2023 Functional Status N/A [facility] Clinical Notes 03-25-2024 to 07-19-2024 [...] Medication Allergies Social (more content not included)... [facility] Comment on above: Result Comment: Elec [...] Keep items that you use often in xsid-fc-fhwwn places. Lower the shelves around your home [...] the way. ? Do not use floor swedish or wax that makes floors slippery. What [...] Control and Prevention, STEADI: cdc.gov ? National [place] on Aging: linda.nih.gov ? [employer] [place] [employer] Aging: linda.nih.gov Contact a doctor if: [...] replace advice given (more content not included)... [facility] 04-21-2024 Note Cardiology Follow Up Progress Note Chief Complaint: Follow-up ([facility] Follow up/Concerns: No further cardiac concerns/symptoms. ) HPI: Jess Bacon is a 68 y.o. female who with a past medical history including overactive bladder, anxiety, vitamin D deficiency, and recent NSTEMI who presents to [place] for post hospitalization follow up. Patient was transferred to [facility] from outside hospital after presenting with complaints of abdominal pain, nausea, vomiting, and diarrhea x 8 times per day. She was found to be dehydrated, and fluid resuscitation was performed. Her troponin was found to be elevated, show she was transferred for further evaluation/management. [facility], patient was found to have a significantly [...] Value Ventricular Rate 67 Atrial Rate 67 IL Interval 142 QRS DURATION 70 QT Interval 448 QTC CALCULATION(BAZETT) 473 P Terrell 83 R-Terrell -5 T Wave Terrell -22 Impression Normal sinus rhythm Possible Inferior [...] Bubble Study Result Date: 03/27/2024 1 1 [facility] Heart Station [address] [place] [address] [phone] (fax) Echocardiogram-[facility] Name: JESS BACON Study Date: 03/27/2024 07:59 AM B/P: 109 mmHg/66 mmHg HR: Date of : 1955 Location: [facility] Height: 61 in. Age: 68 [...] Due to suboptima (more content not included)... [facility] 04-19-2024 Note Nurse Consultation N ote Reason [...] 5y-11y) vac - Not Given Patient Refuses [facility] 04-06-2024 Note Patient Education Infectious Disease [...] medicines. These include steroids, antibiotics, and some edbo-ylv-dzajrbd medicines, such as aspirin or ibuprofen. ? [...] these instructions at home: Medicines ? Take eoml-jsw-thaevbc and prescription medicines only as told by [...] reduce the amount (more content not included)... [facility] 03-30-2024 Note Hospital Medicine Discharge Summary Final Discharge Diagnosis: NSTEMI (non-ST elevated myocardial infarction) ([facility]) Type II demand ischemia Gastroenteritis Overactive bladder Admission Diagnosis: NSTEMI (non-ST elevated myocardial infarction) ([facility]) [I21.4] Hospital course: Patient is a 68-year-old female with overactive bladder, anxiety, vitamin D deficiency, presented from [facility] with abdominal pain, nausea/vomiting and diarrhea, she was found to be dehydrated and started on IV fluids. She was subsequently found to have elevated troponin, therefore she was transferred to [facility] due to concern for NSTEMI. [...] [facility] 03/30/2024 2:02 PM [facility] 03-30-2024 Note [facility] CARDIOLOGY INPAT IENT PROGRESS NOTE Reason for follow up: elevated troponin Subjective HPI: Jess Bacon is a 68 y.o. female with no known past medical history, no medications at home presented to the hospital due to elevated troponin the patient initially went to [facility] due to symptoms of abdominal [...] WBC 6.22 03/07 (more content not included)... [facility] 03-29-2024 Note Patient: Jess yin Procedure Information Date/Time: 03/29/241123 Procedure: Coronary angiography - with cors Location: [facility] [address] / [facility] (Cath) Providers: Bebo Yee MD [...] Plan discussed with attending. Additional Equipment Requests [facility] 03-29-2024 Note Hospital Medicine Daily Progress Note - 03/29/2024 11:31 AM; Room: [address] [place] [address] Admission: 03/25/2024 9:23 PM; Length of stay: 4 days THE HOSPITALIST TEAM PREFERS TO USE [employer] CHAT FOR COMMUNICATION 7AM-7PM. IF I DO NOT RESPOND WITHIN 15 MINUTES, PLEASE PAGE ME/CALL THROUGH THE MAXILLOFACIAL SURGEON. FROM 7PM-7AM, PLEASE PAGE [phone](COVR) Code Status: Full Code Barriers to Discharge: Cardiac catheterization Expected Discharge Date: 03/25/2024 Discharge Destination: home Overview Patient is seen for evaluation and management of gastroenteritis, elevated troponin. Patient is a 68-year-old female with overactive bladder, anxiety, vitamin D deficiency, presented from [facility] with abdominal pain, nausea/vomiting and diarrhea, she was found to be dehydrated and started on IV fluids. She was subsequently found to have elevated troponin, therefore she was transferred to [facility] due to concern for NSTEMI. [...] bladder, anxiety, vitamin D deficiency, presented from [facility] with abdominal pain, nausea/vomiting and diarrhea, she was found to be dehydrated and started on IV fluids. She was subsequently found to have elevated troponin, therefore she was transferred to [facility] due to concern for NSTEMI. [...] AST U/L 31 (more content not included)... [facility] 03-29-2024 Note [facility] CARDIOLOGY INPAT IENT PROGRESS NOTE Reason for follow up: elevated troponin Subjective HPI: Jess Bacon is a 68 y.o. female with no known past medical history, no medications at home presented to the hospital due to elevated troponin the patient initially went to [facility] due to symptoms of abdominal [...] ischemia, TID ind (more content not included)... [facility] 03-28-2024 Note [facility] Medicine Daily Progress Note - 03/28/2024 1:37 PM; Room: [address] [place] [address] Admission: 03/25/2024 9:23 PM; Length of stay: 3 days THE HOSPITALIST TEAM PREFERS TO USE [employer] CHAT FOR COMMUNICATION 7AM-7PM. IF I DO NOT RESPOND WITHIN 15 MINUTES, PLEASE PAGE ME/CALL THROUGH THE MAXILLOFACIAL SURGEON. FROM 7PM-7AM, PLEASE PAGE [phone](COVR) Code Status: Full Code Barriers to Discharge: Cardiac catheterization Expected Discharge Date: 03/29/2024 Discharge Destination: home Overview Patient is seen for evaluation and management of gastroenteritis, elevated troponin. Patient is a 68-year-old female with overactive bladder, anxiety, vitamin D deficiency, presented from [facility] with abdominal pain, nausea/vomiting and diarrhea, she was found to be dehydrated and started on IV fluids. She was subsequently found to have elevated troponin, therefore she was transferred to [facility] due to concern for NSTEMI. [...] Principal Problem: NSTEMI (non-ST elevated myocardial infarction) ([facility]) Active Problems: Gastroenteritis Anxiety Assessment and Plan Patient is a 68-year-old female with overactive bladder, anxiety, vitamin D deficiency, presented from [facility] with abdominal pain, nausea/vomiting and diarrhea, she was found to be dehydrated and started on IV fluids. She was subsequently found to have elevated troponin, therefore she was transferred to [facility] due to concern for NSTEMI. [...] 33* 35 BILIRUBI (more content not included)... [facility] 03-28-2024 Note [facility] CARDIOLOGY INPAT IENT PROGRESS NOTE Reason for follow up: elevated troponin Subjective HPI: Jess Bacon is a 68 y.o. female with no known past medical history, no medications at home presented to the hospital due to elevated troponin the patient initially went to [facility] due to symptoms of abdominal [...] TID index score (more content not included)... [facility] 03-27-2024 Note Attestation signed by Melonie Cole [...] to low blood pressure. Melonie Cole MD, [facility] Cardiology Progress Note Subjective Subjective: Jess Bacon [...] 03/27/24 1140 108/58 36.8 ???C (98.2 ???F) [facility] 67 13 -- -- 03/27/24 0929 (!) 100/48 -- -- 64 -- -- -- 03/27/24 0805 172/60 36.9 ???C (98.4 ???F) [facility] 87 20 -- -- 03/27/24 0620 -- -- -- -- -- -- 53.3 kg (117 lb 6.4 oz) 03/27/24 0400 109/66 -- -- 65 12 96 % -- 03/27/24 0000 94/53 -- -- 64 12 96 % -- 03/26/24 2100 -- 37.3 ???C (99.1 ???F) [facility] -- -- -- -- 03/26/24 2000 99/56 -- -- 68 (!) 31 96 % -- 03/26/24 1615 90/70 37 ???C (98.6 ???F) [facility] 69 18 100 % -- Physical Examination: GENERAL: AOx3, in no acute distress. NECK: No JVD present. CARDIAC: RRR. No murmur, rubs, or gallops. RESPIRATORY: CTAB, no increased effort of breathing. ABDOMEN: Soft, nontender, nondistended. EXTREMITIES: No lower extremity edema, peripheral pulses are 2+ bilaterally. Relevant Lab Results Encounter Date: 07/20/24 ECG 12 lead Result Value Ventricular Rate 67 Atrial Rate 67 IL Interval 142 QRS DURATION 70 QT Interval 448 QTC CALCULATION(BAZETT) 473 P Terrell 83 R-Terrell -5 T Wave Terrell -22 Impression Normal sinus rhythm Possible Inferior [...] Bubble Study Result Date: 03/27/2024 1 1 [facility] Heart Station [address] [place] [address] [phone] (fax) Echocardiogram-[facility] Name: JESS BACON Study Date: 03/27/2024 07:59 AM B/P: 109 mmHg/66 mmHg HR: Date of : 1955 Location: [facility] Height: 61 in. Age: 68 [...] (22ml - 52ml) (more content not included)... [facility] 03-27-2024 Note 03/27/24 6287 Admission Assessment Questions Verify insurance with patient Yes (Fredis LAZARBS. Medicare A B. [facility] [employer].) Do you understand medical disease or what [...] Bedside Delivery Status Not Interested ([facility] in [facility].) Does the patient have a caser shoe parts assigned to them through their insurance? No [...] with plans to return Home no needs. [facility] 03-27-2024 Note Hospital Medicine Daily Progress Note - 03/27/2024 1:27 PM; Room: 3140/3140-01 Admission: 03/25/2024 9:23 PM; Length of stay: 2 days THE HOSPITALIST TEAM PREFERS TO USE [employer] CHAT FOR COMMUNICATION 7AM-7PM. IF I DO NOT RESPOND WITHIN 15 MINUTES, PLEASE PAGE ME/CALL THROUGH THE MAXILLOFACIAL SURGEON. FROM 7PM-7AM, PLEASE PAGE [phone](COVR) Code Status: Full Code Barriers to Discharge: [...] Principal Problem: NSTEMI (non-ST elevated myocardial infarction) ([facility]) [...] LDL 101 03/26/2024 No results found for: [id number] , IRON , TIBC , C3 , [...] T waves in (more content not included)... [facility] 03-27-2024 Note Physical Therapy Physical Therapy Evaluation Patient Name: Jess Bacon : 1955 Today's Date: 03/27/2024 Patient is a 68 y/o female who presented to [facility]SH with nausea/vomiting/diarrhea x2 days. Found to have elevated troponin and transferred to [facility] for further cardiac evaluation. Troponin [...] Level of Function Prior Function Level of Bosque: Independent with ADLs and functional transfers, Independent [...] Discharge Recommendations: Ho (more content not included)... [facility] 03-27-2024 Note Occupational Therapy Occupational Therapy Evaluation Patient Name: Jess Bacon : 1955 Today's Date: 03/27/2024 Time In: 1026 Time Out: 1031 Jess Bacon is an 68 y.o. female who came from home with past medical history of overactive bladder, anxiety and vitamin D deficiency presented to [facility] as a transfer from [facility] for NSTEMI. 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) Prior Functional Mobility: Independent without device Prior [...] Eating meals?: None (Independent) Total Score OT [facility]: 24 Assessment/Plan Plan OT Plan: No skilled OT No Skilled OT: At baseline function OT Discharge Recommendations: Home OT - Discharge Recommendations Placed: Yes OT Goals Multi-Disciplinary Problems (from Occupational Therapy) Active Problems Not on file [facility] 03-26-2024 Note Hospital Medicine Daily Progress Note - 03/26/2024 4:53 PM; Room: [address] [place] [address] Admission: 03/25/2024 9:23 PM; Length of stay: 1 days THE HOSPITALIST TEAM PREFERS TO USE [employer] CHAT FOR COMMUNICATION 7AM-7PM. IF I DO NOT RESPOND WITHIN 15 MINUTES, PLEASE PAGE ME/CALL THROUGH THE MAXILLOFACIAL SURGEON. FROM 7PM-7AM, PLEASE PAGE [phone](COVR) Code Status: Full Code Barriers to Discharge: [...] LDL 101 03/26/2024 No results found for: [id number] , IRON , TIBC , C3 , [...] Cancino MD Hospital Medicine 03/26/2024 4:53 PM [facility] 03-25-2024 Note Hospital Medicine History and Physical 03/25/2024 10:58 PM THE HOSPITALIST TEAM PREFERS TO USE [employer] CHAT FOR COMMUNICATION 7AM-7PM. IF I DO NOT RESPOND WITHIN 15 MINUTES, PLEASE PAGE ME/CALL THROUGH THE MAXILLOFACIAL SURGEON. FROM 7PM-7AM, PLEASE PAGE [phone](COVR) Chief Complaint No chief complaint on file. History of Present Illness Jess Bacon is an 68 y.o. female who came from home with past medical history of overactive bladder, anxiety and vitamin D deficiency presented to [facility] as a transfer from [facility] for NSTEMI. Patient reports that for [...] were still elevated so cardiology team at [facility] was called and they wanted patient to be transferred forNSTEMI treatment to [facility]. Patient denies chest pain or [...] Date Noted NSTEMI (non-ST elevated myocardial infarction) ([facility]) [...] this hospital stay by a member of [facility] Medicine. Past Medical History History [...] Ran Out o (more content not included)... [facility] Evaluation + Plan note Future Appointments Appointment Date:04/27/2024 01:00:00 PM Scheduled Provider: Location:[facility] Appointment Type:FM Medicare Wellness Subsequent [facility] Evaluation + Plan note Future Appointments Appointment Date:06/04/2025 02:30:00 PM Scheduled Provider: Location:[facility] Appointment Type: Medicare Wellness Subsequent Future Scheduled TestsMA Mamm Screen w/CAD if perf and 3D Dimitri 06/01/24 [facility] [place] Evaluation note Diagnosis Onset Date Low back pain acute [facility] Work Phone: Hospital course Narrative No data available for this section [facility] Hospital Discharge instructions No data available for this section [facility] Progress note No data available for this section [facility] Summary Purpose Family History [...] and content) DATE CREATED AUTHOR 07/21/2022 [facility] DATE CREATED AUTHOR AUTHOR'S ORGANIZ ATION 01/23/2024 [facility] EPIC DATE CREATED AUTHOR AUTHOR'S ORGANIZ ATION 05/02/2024 [facility] DATE CREATED AUTHOR AUTHOR'S ORGANIZ ATION 06/04/2024 [facility] DATE CREATED AUTHOR AUTHOR'S ORGANIZ ATION 09/01/2024 [facility] Patient Care team informatio n (unrecognized section and content) Team Status: Active Member Role Status Dates Luisiot Roth MD Primary Care Provider Active Team Status: Inactive Member Role Status Dates Luisito Roth MD Primary Care Provider Active Start: May 27, 2024 End: May 27, 2024 Zoila العراقي APRN Attending Provider Active S tart: May 27, 2024 End: May 27, 2024 Team Status: Inactive Member Role Status Dates Zoila M Malcom , PSYCHIATRIC TECH Attending Provider Active S tart: May 27, [...] BE BASED ON THE PRIMARY CLINICAL RECORDS. [employer] provides no warranty or guarantee of the accuracy or completeness of information in this document.
[2024-09-27] MEDS: 0.9 % SODIUM CHLORIDE 500 ML 50 ML IV (08:42)
[2024-09-27 10:00] VITALS: BP 136/69; PULSE 68; TEMP 36.5; O2SAT 100
[2024-09-27 10:15] VITALS: BP 135/59; PULSE 79; O2SAT 99
[2024-09-27 10:30] VITALS: BP 154/62; PULSE 61; O2SAT 100
== END 2024-09-27 10:40 | disposition home or self-care (01) ==
PROVIDERS: PCP Nurse Practitioner; Visit Provider Surgery
PROC: (CPT 00811; principal; 2024-09-27 09:15)
DX: K57.30 Diverticulosis of large intestine without perforation or abscess without bleeding (principal); Z86.0101 Personal history of adenomatous and serrated colon polyps; Z90.49 Acquired absence of other specified parts of digestive tract; Z90.710 Acquired absence of both cervix and uterus; I25.10 Atherosclerotic heart disease of native coronary artery without angina pectoris
CPT/HCPCS: 00811; 45378; J2704

== ENCOUNTER 2025-04-21 18:37 | Emergency (ER) | payer OTHER, SELFPAY ==
[2025-04-21 18:49] VITALS: BP 128/58; PULSE 72; TEMP 36.8; O2SAT 98; BMI 22.9
--- OUTSIDE RECORDS SUMMARY | 2025-04-21 18:57 | XMS_ITS | CCD ---
Author Organization [facility] Care Team Providers Care Inbound Sales Advisor Name Role Phone ABIOLA, DR GINA Berg Primary Care Unavailable PAY, DR ROBLES Admitting Unavailable PAY, DR ROBLES Attending Unavailable IVETTE RICHMOND Consulting Unavailable CarlosMillie avitia Primary Care Physician [phone] LAUREANO AMARAL Referring Unavailable LAUREANO AMARAL Attending Unavailable LAUREANO AMARAL Referring Unavailable LARISSA SUTTON Attending Unavailable LARISSA SUTTON Referring Unavailable MalcomCARLOS balderas Attending Provider [phone] MD Luisito Roth Primary Care Provider Zoila العراقي Attending Unavailable MalcomZoila Admitting Unavailable Luisito Roth Primary Care Unavailable AUGUST HAYES Attending Unavailable ALGHOTHANIDAVID Attending Unavailable Carlos, Millie Gallagher Admitting Unavailable Carlos, Millie Gallagher Attending Unavailable INGRIDLIZBETH Attending Unavailable Carlos, Millie Gallagher Attending Unavailable Carlos, Millie Gallagher Attending Unavailable Carlos, Millie Gallagher Attending Unavailable Carlos, Millie Gallagher Attending Unavailable Carlos, Millie Gallagher Attending Unavailable Carlos, Millie Gallagher Admitting Unavailable NILLAddy Attending Unavailable NILL, Addy Koch Attending Unavailable Carlos, Millie Gallagher Attending Unavailable Carlos, Millie Gallagher Attending Unavailable Carlos, Millie L Attending Unavailable Carlos, Millie L Attending Unavailable Carlos, Millie L Attending Unavailable Carlos, Millie L Attending Unavailable Carlos, Millie L Attending Unavailable Carlos, Millie L Attending Unavailable Carlos, Millie L Attending Unavailable Carlos, Millie L Attending Unavailable Allergies Allergy Classification Reported Allergen(s) Allergy Type Date of Onset Reaction(s) Facility (2 sources) No Known Medication Allergies; Translations: [No Known Medication Allergies] Propensity to adverse reactions (disorder) [facility] Repository Medications Current Medications Medication Drug [...] 5 tab(s), Refills(s) 0, [id number], 158, cm, 10/29/23 13:27:00 EST, Height/Length Dosing, [...] daily, # 90 tab(s), Refills(s) 0, Pharmacy: [facility], 158, cm, 06/06/24 14:02:00 [...] Daily, # 90 tab(s), Refills(s) 3, Pharmacy: [facility], 157, cm, 05/25/23 15:27:00 [...] daily, # 30 tab(s), Refills(s) 0, Pharmacy: [facility], 158, cm, 06/06/24 14:02:00 [...] daily, # 90 tab(s), Refills(s) 3, Pharmacy: [facility], 158, cm, 04/06/24 14:41:00 [...] 9:33am Problems Problem Classification Problem Date Documented Da te Episodic/Chronic Acute bronchitis (3 sources) Acute bronchitis; Translations: [Acute bronchitis, unspecified] Onset: 10-29-2023 Episodic Acute myocardial infarction (1 source) Myocardial infarction 05-11-2024 Chronic Anxiety disorders (2 sources) Anxiety disorder 11-27-2022 Chronic Cardiac and circulatory congenital anomalies (2 sources) Malformation of coronary vessels; Translations: [Malformation of coronary vessels] Onset: 04-09-2025 Chronic Chronic obstructive pulmonary disease and bronchiectasis (1 source) Bronchitis; Translations: [Bronchitis, not specified as acute or chronic] 02-01-2024 Episodic Coronary atherosclerosis and other heart disease (1 source) History of non-ST segment elevation myocardial infarction 05-11-2024 Chronic Comment on above: Noted in [facility] page 4 , added per outpatient CDI policy. Disorders of lipid metabolism (2 sources) Pure hypercholesterolemia , unspecified; Translations: [Pure hypercholesterolemia , unspecified] Onset: 04-09-2025 Chronic E Codes: Fall (1 source) Fall; Translations: [Unspecified fall, initial encounter] 05-27-2024 Episodic Gastritis and duodenitis (1 source) Gastritis 04-06-2024 Episodic Immunizations and screening for infectious disease (1 source) Contact with and (suspected) exposure to other viral communicable diseases; Translations: [Contact with or exposure to other viral diseases] 02-01-2024 Episodic Mycoses (2 sources) Onychomycosis 11-27-2022 Episodic Nutritional deficiencies (1 source) Vitamin D [...] conditions (not mental disorders or infectious disease) (1 source) Patient encounter status; Translations: [Encounter for screening for malignant neoplasm of colon] 08-18-2023 Episodic Other skin disorders (2 sources) Ingrowing great toenail 09-30-2023 Episodic Other upper respiratory infections (6 sources) Acute frontal sinusitis, unspecified; Translations: [Acute frontal sinusitis] Onset: 10-29-2023 Episodic Otitis media and related conditions (2 sources) Acute bilateral otitis media ; Translations: [Otitis media, unspecified, bilateral] 02-01-2024 Episodic Spondylosis; intervertebral disc disorders; other back [...] Test Name Value Interpretation Reference Range Facility Provider Letteron 04-12-2025 Provider Letter Provider Letter April 12, 2025 [place] BACON [address] [place] [id number] : 1955 To Whom It May Concern, Please excuse above patient from work. Date of Illness: From: 04/12/2025 To: 04/15/2025 May Return to Work On: 04/16/2025 Sincerely, [address] [address] [facility] Ambulatory Visit Summaryon 0 04-11-2025 Ambulatory Visit Summary Ambulatory Visit Summary [place] BACON :1955 Visit Date:04/11/2025 Ambulatory Visit Instructions Your Diagnosis Viral pharyngitis BMI 21.0-21.9, adult Nonsmoker Viral infection, unspecified Your Care Team Attending Physician - LIZBETH QUINTERO CNP Primary Care Physician - Millie Florentino This Is Your Medications List Contact prescribing physician if questions or concerns Misc Prescription (Compression stockings) aspirin cholecalciferol (Vitamin D3 2000 intl units oral Tab) escitalopram (escitalopram 5 mg oral tablet) meloxicam (meloxicam 15 mg Tab) omeprazole (omeprazole 40 mg Cap-DR) oxybutynin (oxybutynin 10 mg ER Tab) Procedures Performed Colonoscopy (09/27/2024), Colonoscopy (12/2017), Abdominal hysterectomy, Appendectomy, Cardiac catheterization, Cholecystectomy, Colonoscopy, D (dilation) and C (curettage) of uterus, Release of trigger finger, Release of trigger thumb. Discharge Vitals Temperature (Oral) 36.8 ???C Heart Rate (Peripheral) 64 Respiratory Rate 18 Blood Pressure 120/76 Height 158 cm Height 62 in Weight 52.9 kg Weight 116.624 lb BMI 21.19 What to do next Scheduled Follow-Up Appointments Wednesday 2:30 PM EDT Where: [place] [id number]- Medications What How Much When Why Instructions [...] prescribing physician if questions or concerns Unchanged omeprazole (omeprazole 40 mg Cap-DR) 1 Capsules By Mouth Every day Duration: 90 Days Contact prescribing physician if questions or concerns Unchanged oxybutynin (oxybutynin 10 mg ER Tab) 1 Tablets By Mouth Every day Contact prescribing physician if questions or concerns Allergies No Known Allergies No Known Medication Allergies Problems Ongoing - Any problem that you are currently receiving treatment for. Acute bronchitis Acute frontal sinusitis Anxiety disorder BMI 21.0-21.9, adult Breast cancer screening by mammogram Cerumen impaction Dupuytrens contracture Fluid level behind tympanic membrane of both ears Foot pain, right Gastritis History of non-ST elevation myocardial infarction (NSTEMI) History of recent fall Ingrown right big toenail Lower extremity neuropathy Lump of right breast Nonsmoker Onychomycosis Osteoarthritis of lumbosacral spine Pain in lower back Personal history of adenomatous and serrated colon polyps Personal history of colon polyps, unspecified Pre-employment examination Radiculopathy Right elbow pain Right low back pain Screening for hyperlipidemia Sigmoid diverticulosis Sinusitis Spondylosis Syncope Trigger ring finger of right hand Vitamin D deficiency Wellness examination Historical - Any problem that [...] choosing us for your care. Education Materials Pharyngitis Pharyngitis is a sore throat (pharynx). This is when there is redness, pain, and swelling in your throat. Most of the time, this condition gets better on its own. In some cases, you may need medicine. What are the causes? An infection from a virus. ??? An infection from bacteria. ??? Allergies. What increases the risk? Being 5???24 years old. ??? Being in crowded environments. These include: ? Daycares. ? Schools. ? Dormitories. ??? Living in a place with cold temperatures outside. ??? Having a weakened disease-fighting (immune) system. What are the signs or symptoms? Symptoms may vary depending on the cause. Common symptoms include: ??? Sore throat. ??? Tiredness (fatigue). ??? Low-grade fever. ??? Stuffy nose. ??? Cough. ??? Headache. Other symptoms may include: ??? Glands in the neck (lymph nodes) that are swollen. ??? Skin rashes. ??? Film on the throat or tonsils. This can b (more content not included)... Normal [facility] Family Medicine Office/Clini c Noteon 04-11-2025 Family Medicine Office/Clinic Note Family Medicine Office/Clinic Note Chief Complaint Sore Throat The patient presents with a sore throat. HPI Staff Pt presents today due to sore throat. Started yesterday. 7/10 pain. Has tried taking tylenol. No relief. Has not noticed any spots on throat. Grandson just got over foot and mouth disease. I have reviewed and verified the staff HPI to be accurate for this encounter. History of Present Illness 69-year-old female presenting with a sore throat. The sore throat began yesterday and is described as severe, with a pain level of 7 out of 10. The patient has attempted to alleviate the pain with acetaminophen, but it has not been effective. She reports no fever accompanying the sore throat. Her grandson recently recovered from hand, foot, and mouth disease, which is known to be viral and highly contagious. During the examination, the oropharynx was noted to be erythematous without tonsillar exudate or lesions, suggesting a viral etiology rather than bacterial. The patient was advised to gargle with salt water and use cough drops or chloraseptic spray for symptomatic relief. 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 However, her cholesterol level was previously recorded at 177 mg/dL, which is not considered high. Review of Systems - General: Denies fever - ENT: Reports sore throat with severe pain, denies tonsillar exudate - Cardiovascular: Denies chest pain Physical Exam Vitals & Measurements T: 36.8 ???C(Oral) HR: 64(Peripheral) RR: 18 BP: 120/76 SpO2: 97% HT: 158 cm HT: 62 in WT: 52.9 kg WT: 116.624 lb BMI: 21.19 General: alert, no acute distress ENMT: TM's clear, oral mucosa moist, yes pharyngeal erythema or exudate Cardiovascular: regular rate and rhythm, normal peripheral perfusion Respiratory: Lungs CTA, respirations non labored Extremities: no deformity, no trauma Neurological: oriented x 4, LOC appropriate for age speech normal Assessment/Plan 1. Viral pharyngitis (J02.9: Acute pharyngitis, unspecified) - Recommend symptomatic treatment with salt water gargles, cough drops, and chloraseptic spray. - Advise follow-up if symptoms worsen or if fever develops. 2. Viral infection, unspecified (B34.9) - Monitor symptoms and provide supportive care as needed. 3. BMI 21.0-21.9, adult (Z68.21: Body mass index [BMI] 21.0-21.9, adult) BMI 21.19 4. Nonsmoker (Z78.9: Other specified health status) Encouraged to continue as a non-smoker Reviewed cholesterol levels and consider lifestyle modifications if necessary. Follow-up No qualifying data available Patient Education Pharyngitis, [id number] Problem List/Past Medical History Ongoing Acute bronchitis Acute frontal sinusitis Anxiety disorder BMI 21.0-21.9, adult Breast cancer screening by mammogram Cerumen impaction Dupuytrens contracture Fluid level behind tympanic membrane of both ears Foot pain, right Gastritis History of non-ST elevation myocardial infarction (NSTEMI) History of recent fall Ingrown right big toenail Lower extremity neuropathy Lump of right breast Nonsmoker Onychomycosis Osteoarthritis of lumbosacral spine Pain in lower back Personal history of adenomatous and serrated colon polyps Personal history of colon polyps, unspecified Pre-employment examination Radiculopathy Right elbow pain Right low back pain Screening for hyperlipidemia Sigmoid diverticulosis Sinusitis Spondylosis Syncope Trigger ring finger of right hand Vitamin D deficiency Wellness examination Historical Hospital discharge follow-up NSTEMI (non-ST elevated myocardial infarction) Sore throat Procedure/Surgical History Colonoscopy (09/27/2024), Colonoscopy (12/2017), Abdominal hysterectomy, Appendectomy, Cardiac catheterization, Cholecystectomy, Colonoscopy, D (dilation) and C (curettage) of uterus, Release of trigger finger, Release of trigger thumb. Medications aspirin, 81 mg, Oral, Daily Compression stockings, See Instructions escitalopram 5 mg oral tablet, See Instructions meloxicam 15 mg Tab, See Instructions omeprazole 40 mg Cap-DR, 40 mg= 1 cap(s), Oral, Daily, 3 refills oxybutynin 10 mg ER Tab, 10 mg= 1 tab(s), Oral, Daily, [...] Never Smokeless Tobacco Use:. Household tobacco concerns: No. Yes, 04/11/2025 Family History Emphysema: Father. Schizoaffective disorder: Mother. Immunizations Vaccine Date Status Comments influenza virus vaccine, inactivated - Not Given Patient Refuses influenza virus vaccine, inactivated - Not Given Patient Refuses SA (more content not included)... Normal [facility] Comment on above: Result Comment: Elec tronically Signed By: LIZBETH QUINTERO CNP\.br\Date and Time Signed: 04/11/25 19:48 EDT Office Visiton 04-09-2025 Follow-up visit [id number] Mary Bacon 1955 F Date Provider Department Center 04/09/2025 AUGUST LOPEZ JOSEMANUEL Mcpherson [facility] Family History Family Status - Relation Status Age at Mother Father Level of Service:20988 ND OFFICE/OUTPATIENT ESTABLISHED LOW MDM 20 MIN Normal [facility] Ambulatory Visit Summaryon 0 03-23-2025 Ambulatory Visit Summary Ambulatory Visit Summary [place] BACON :1955 Visit Date:03/23/2025 Ambulatory Visit Instructions Your Diagnosis Wellness examination Your Care Team Attending Physician - Millie Florentino Primary Care Physician - Millie Florentino This Is Your Medications List Misc Prescription (Compression stockings) aspirin cholecalciferol (Vitamin D3 1999 intl units oral Tab) escitalopram (escitalopram 5 mg oral tablet) meloxicam (meloxicam 15 mg Tab) omeprazole (omeprazole 40 mg Cap-DR) oxybutynin (oxybutynin 10 mg ER Tab) Procedures Performed Colonoscopy (09/27/2024), Colonoscopy (12/2017), Abdominal hysterectomy, Appendectomy, Cardiac catheterization, Cholecystectomy, Colonoscopy, D (dilation) and C (curettage) of uterus, Release of trigger finger, Release of trigger thumb. What to do next Scheduled Follow-Up Appointments Wednesday 2:30 PM EDT Where: [address] [address]- Medications What How Much When Why Instructions Unchanged aspirin 81 Milligram By Mouth Every day Unchanged cholecalciferol (Vitamin D3 2000 intl units oral Tab) 50 Microgram By Mouth Every day Unchanged escitalopram (escitalopram 5 mg oral tablet) See instructions Take 1 tablet by mouth once daily Unchanged meloxicam (meloxicam 15 mg Tab) See instructions Take 1 tablet by mouth once daily Unchanged Misc Prescription (Compression stockings) See instructions BMI 22.0-22.9, adult Non-smoker wear stocking when on your feet > 8 hours per day Unchanged omeprazole (omeprazole 40 mg Cap-DR) 1 Capsules By Mouth Every day Duration: 90 Days Unchanged oxybutynin (oxybutynin 10 mg ER Tab) 1 Tablets By Mouth Every day Allergies No Known Allergies No Known Medication Allergies Problems Ongoing - Any problem that you are currently receiving treatment for. Acute bronchitis Acute frontal sinusitis Anxiety disorder BMI 20.0-20.9, adult BMI 21.0-21.9, adult Breast cancer screening by mammogram Cerumen impaction Dupuytrens contracture Fluid level behind tympanic membrane of both ears Foot pain, right Gastritis History of non-ST elevation myocardial infarction (NSTEMI) History of recent fall Ingrown right big toenail Lower extremity neuropathy Lump of right breast Onychomycosis Osteoarthritis of lumbosacral spine Pain in lower back Personal history of adenomatous and serrated colon polyps Personal history of colon polyps, unspecified Pre-employment examination Radiculopathy Right elbow pain Right low back pain Screening for hyperlipidemia Sigmoid diverticulosis Sinusitis Spondylosis Syncope Trigger ring finger of right hand Vitamin D deficiency Wellness examination Historical - Any problem that you are no longer receiving treatment for. Hospital discharge follow-up NSTEMI (non-ST elevated myocardial infarction) Sore throat Patient Survey You may receive a survey via text or e-mail asking about your office visit. Please share your experience with us by completing your survey. We appreciate your feedback and thank you for choosing us for your care. Patient Portal You may access all of your results and other medical record information on our secure patient portal. If you are not signed up for this yet, please contact [employer] at [phone] to get signed up today. Language Information Language assistance services are available as needed. Normal [facility] CBC w/ Auto Diffon 5 Basophil Absolute 0.1 E9/L Normal 0.0-0.2 [facility] Comment on above: Performed By: #### 2 [id number] #### [facility] [address] [place] [address] Basophils/100 WBC (Bld) 1.1 % Normal 0.0-2.0 [facility] Comment on above: Performed By: #### 2 [id number] #### [facility] [address] [place] [address] Eos Absolute 0.2 E9/L Normal 0.0-0.5 [facility] Comment on above: Performed By: #### 2 [id number] #### [facility] [address] [place] [address] Eosinophils/100 WBC (Bld) 4.0 % Normal 0.0-8.0 [facility] Comment on above: Performed By: #### 2 [id number] #### [facility] [address] [place] [address] Erythrocyte distribution width (RBC) [Ratio] 15.1 % High 10.9-14.2 [facility] Comment on above: Performed By: #### 2 [id number] #### [facility] [address] [place] [address] Hematocrit (Bld) [Volume fraction] 41.0 % Normal 34.0-46.0 [facility] Comment on above: Performed By: #### 2 [id number] #### [facility] [address] [place] [address] Hemoglobin (Bld) [Mass/Vol] 13.8 g/dL Normal 12.0-16.0 [facility] Comment on above: Performed By: #### 2 [id number] #### [facility] [address] [place] [address] Lymph Absolute 1.1 E9/L Normal 1.0-4.0 [facility] Comment on above: Performed By: #### 2 107158 #### [facility] [address] [place] [address] Lymphocytes/100 WBC (Bld) 18.6 % Normal 14.0-50.0 [facility] Comment on above: Performed By: #### 2 560197 #### [facility] [address] [place] [address] MCH (RBC) [Entitic mass] 29.1 pg Normal 27.0-34.0 [facility] Comment on above: Performed By: #### 2 545197 #### [facility] [address] [place] [address] MCHC (RBC) [Mass/Vol] 33.8 g/dL Normal 31.4-36.0 [facility] Comment on above: Performed By: #### 2 432211 #### [facility] [address] [place] [address] MCV (RBC) [Entitic vol] 86.3 fL Normal 80.0-100.0 [facility] Comment on above: Performed By: #### 2 267492 #### [facility] [address] [place] [address] Cotton Absolute 0.4 E9/L Normal 0.2-1.0 [facility] Comment on above: Performed By: #### 2 [id number] #### [facility] [address] [place] [address] Monocytes/100 WBC (Bld) 6.8 % Normal 4.0-14.0 [facility] Comment on above: Performed By: #### 2 909284 #### [facility] [address] [place] [address] Neutro Absolute 4.2 E9/L Normal 2.0-7.[address] [facility] Comment on above: Performed By: #### 2 956101 #### [facility] [address] [place] [address] Neutro Auto 69.5 % Normal 36.0-75.0 [facility] Comment on above: Performed By: #### 2 297473 #### [facility] [address] [place] [address] Platelet 211.0 E9/L Normal 150.0-500.0 [facility] Comment on above: Performed By: #### 2 810312 #### [facility] [address] [place] [address] Platelet mean volume (Bld) [Entitic vol] 7.8 fL Normal 6.4-10.8 [facility] Comment on above: Performed By: #### 2 878734 #### [facility] [address] [place] [address] RBC 4.8 E12/L Normal 4.3-5.9 [facility] Comment on above: Performed By: #### 2 790980 #### [facility] [address] [place] [address] WBC 6.1 E9/L Normal 4.0-11.0 [facility] Comment on above: Performed By: #### 2 164353 #### [facility] [address] [place] [address] CMPon 03-23-2025 Albumin [Mass/Vol] 4.1 g/dL Normal 3.3-5.0 [facility] Comment on above: Performed By: #### 2 [id number] #### [facility] [address] [place] [address] Albumin/Globulin [Mass ratio] 1.6 {ratio} Normal 1.1-2.2 [facility] Comment on above: Performed By: #### 2 806064 #### [facility] [address] [place] [address] Alk Phos 37 Int._Unit/L Normal 21-98 [facility] Comment on above: Performed By: #### 2 [id number] #### [facility] [address] [place] [address] ALT 22 Int._Unit/L Normal 6-46 [facility] Comment on above: Performed By: #### 2 810563 #### [facility] [address] [place] [address] Anion gap [Moles/Vol] 10 mmol/L Normal 6-16 [facility] Comment on above: Performed By: #### 2 778154 #### [facility] [address] [place] [address] AST 28 Int._Unit/L Normal 5-43 [facility] Comment on above: Performed By: #### 2 090938 #### [facility] [address] [place] [address] Bili Total 0.6 mg/dL Normal 0.0-1.1 [facility] Comment on above: Performed By: #### 2 089558 #### [facility] [address] [place] [address] BUN/Creat Ratio 36 No Units High 10-20 [facility] Comment on above: Performed By: #### 2 584009 #### [facility] [address] [place] [address] Calcium [Mass/Vol] 9.3 mg/dL Normal 8.9-11.1 [facility] Comment on above: Performed By: #### 2 458482 #### [facility] [address] [place] [address] Chloride [Moles/Vol] 107 mmol/L Normal 101-111 [facility] Comment on above: Performed By: #### 2 191774 #### [facility] [address] [place] [address] CO2 [Moles/Vol] 28 mmol/L Normal 21-[address] [facility] Comment on above: Performed By: #### 2 888216 #### [facility] [address] [place] [address] Creatinine [Mass/Vol] 0.7 mg/dL Normal 0.5-1.3 [facility] Comment on above: Performed By: #### 2 570407 #### [facility] [address] [place] [address] Globulin (S) [Mass/Vol] 2.5 g/dL Normal 1.4-4.0 [facility] Comment on above: Performed By: #### 2 523973 #### [facility] [address] [place] [address] Glucose [Mass/Vol] 73 mg/dL Normal 55-199 [facility] Comment on above: Performed By: #### 2 804099 #### [facility] [address] [place] [address] Potassium [Moles/Vol] 4.3 mmol/L Normal 3.5-5.3 [facility] Comment on above: Performed By: #### 2 725409 #### [facility] [address] [place] [address] Protein [Mass/Vol] 6.6 g/dL Normal 6.0-7.8 [facility] Comment on above: Performed By: #### 2 957026 #### [facility] [address] [place] [address] Sodium [Moles/Vol] 141 mmol/L Normal 135-145 [facility] Comment on above: Performed By: #### 2 817202 #### [facility] [address] [place] [address] Urea nitrogen [Mass/Vol] 25 mg/dL High 5-21 [facility] Comment on above: Performed By: #### 2 [id number] #### [facility] [address] [place] [address] Lipid Panelon 03-23-2025 Cholesterol [Mass/Vol] 177 mg/dL Normal 120-200 [facility] Comment on above: Performed By: #### 2 [id number] #### [facility] [address] [place] [address] Cholesterol in HDL [Mass/Vol] 51 mg/dL Invalid Interpretation Code [facility] Comment on above: Result Comment: '>= 60 LOW RISK' '<= 40 HIGH RISK' Performed By: #### 2 [id number] #### [facility] [address] [place] [address] Cholesterol in LDL [Mass/Vol] 118 mg/dL Normal <=129 [facility] Comment on above: Performed By: #### 2 [id number] #### [facility] [address] [place] [address] Cholesterol in VLDL [Mass/Vol] 14 mg/dL Normal 7-40 [facility] Comment on above: Performed By: #### 2 [id number] #### [facility] [address] [place] [address] Triglyceride [Mass/Vol] 70 mg/dL Normal <=149 [facility] Comment on above: Performed By: #### 2 [id number] #### [facility] [address] [place] [address] TSHon 03-23-2025 TSH Qn 1.14 m[IU]/L Normal 0.34-5.60 [facility] Comment on above: Performed By: #### 2 [id number] #### [facility] [address] [place] [address] Vitamin D 25 Hydroxyon 03-23 Vitamin D 25 Hydroxy 52.5 ng/mL Normal 30.0-100.0 [facility] Comment on above: Performed By: #### 5 [id number] #### [facility] [address] [place] [address] eGFRon 03-23-2025 eGFR 93 mL/min/1.73 m2 Normal >=59 [facility] Comment on above: Performed By: #### 1 [id number] #### [facility] [address] [place] [address] Provider Letteron 02-16-2025 Provider Letter Provider Letter February 16, 2025 [place] BACON [address] [place] [id number] : 1955 Dear [place] , We have been trying to reach you with no success. It is important that you return our call regarding your lab draw appointment on February 23, 2025 upon receiving this letter. Also, at the time of your call, please provide us with your current information. Thank you for your prompt attention to this matter. Sincerely, [address] [facility] Ambulatory Visit Summaryon 0 02-05-2025 Ambulatory Visit Summary Ambulatory Visit Summary [place] BACON :1955 Visit Date:02/05/2025 Ambulatory Visit Instructions Your Care Team Attending Physician - Millie Florentino Primary Care Physician - Millie Florentino This Is Your Medications List Misc Prescription (Compression stockings) aspirin cholecalciferol (Vitamin D3 2000 intl units oral Tab) escitalopram (escitalopram 5 mg oral tablet) meloxicam (meloxicam 15 mg Tab) omeprazole (omeprazole 40 mg Cap-DR) oxybutynin (oxybutynin 10 mg ER Tab) Procedures Performed Colonoscopy (09/27/2024), Colonoscopy (12/2017), Abdominal hysterectomy, Appendectomy, Cardiac catheterization, Cholecystectomy, Colonoscopy, D (dilation) and C (curettage) of uterus, Release of trigger finger, Release of trigger thumb. Discharge Vitals Heart Rate (Peripheral) 71 Respiratory Rate 16 Blood Pressure 122/62 Height 158 cm Height 62 in Weight 52.9 kg Weight 116.624 lb BMI 21.19 What to do next Scheduled Follow-Up Appointments Wednesday 9:20 AM EDT Where: [address] [address]- Wednesday 2:30 PM EDT Where: [address] [address]- Medications What How Much When Why Instructions Unchanged aspirin 81 Milligram By Mouth Every day Unchanged cholecalciferol (Vitamin D3 2000 intl units oral Tab) 50 Microgram By Mouth Every day Unchanged escitalopram (escitalopram 5 mg oral tablet) See instructions Take 1 tablet by mouth once daily Unchanged meloxicam (meloxicam 15 mg Tab) See instructions Take 1 tablet by mouth once daily Unchanged Misc Prescription (Compression stockings) See instructions BMI 22.0-22.9, adult Non-smoker wear stocking when on your feet > 8 hours per day Unchanged omeprazole (omeprazole 40 mg Cap-DR) 1 Capsules By Mouth Every day Duration: 90 Days Unchanged oxybutynin (oxybutynin 10 mg ER Tab) 1 Tablets By Mouth Every day Allergies No Known Allergies No Known Medication [...] Ingrown right big toenail Lower extremity neuropathy Lump of right breast Onychomycosis Osteoarthritis of lumbosacral spine Pain in lower back Personal history of adenomatous and serrated colon polyps Personal history of colon polyps, unspecified Pre-employment examination Radiculopathy Right elbow pain Right low back pain Screening for hyperlipidemia Sigmoid diverticulosis Sinusitis Spondylosis Syncope Trigger ring finger of right hand Vitamin D deficiency Wellness examination Historical - Any problem that [...] for choosing us for your care. Normal [facility] Family Medicine Office/Clini c Noteon 02-05-2025 Family Medicine Office/Clinic Note Family Medicine Office/Clinic Note HPI Staff complaints of _ pt here today presenting with cough and sore throat, post nasal drip from current sinus infection, pt stated tried NyQuil pt states the symptoms have beeing going on for a couple days Onset: 2-3 days Characteristics: sinus congestion, and cough and sore throat OTC tried: NyQuil History of Present Illness pt presents today for URI symptoms Review of Systems PHQ Score Initial Depression Screen Score: 0 SCORE Physical Exam Vitals & Measurements HR: 71(Peripheral) RR: 16 BP: 122/62 SpO2: 96% HT: 62 in HT: 158 cm WT: 116.624 lb WT: 52.9 kg BMI: 21.19 General: alert, no acute distress ENMT: oral mucosa moist, yes pharyngeal erythema or no exudate, sinus tenderness Cardiovascular: regular rate and rhythm, normal peripheral perfusion Respiratory: Lungs CTA, respirations non labored Extremities: no deformity, no trauma Neurological: oriented x 4, LOC appropriate for age, CN II-XII intact, motor strength equal & normal bilaterally, speech normal Assessment/Plan 1. Sinusitis (J32.9: Chronic sinusitis, unspecified) pt presents today with sinus symptoms. sinus tenderness and drainage noted on exam. ears look good. throat red but no exudate. will send in amoxicillin. if not feeling better by Wednesday she will call in for medrol dose pack. RTC as needed Ordered: amoxicillin, 500 mg = 1 cap(s), Oral, TID, X 7 day(s), # 21 cap(s), Refills(s) 0, Pharmacy: [facility], 158, cm, 02/05/25 14:07:00 EDT, Height/Length Dosing, 52.9, kg, 02/05/25 14:07:00 EDT, Weight Dosing 2. BMI 21.0-21.9, adult (Z68.21: Body mass index [BMI] 21.0-21.9, adult) BMI education Ordered: amoxicillin, 500 mg = 1 cap(s), Oral, TID, X 7 day(s), # 21 cap(s), Refills(s) 0, Pharmacy: [facility], 158, cm, 02/05/25 14:07:00 EDT, Height/Length Dosing, 52.9, kg, 02/05/25 14:07:00 EDT, Weight Dosing Follow-up No qualifying data available Problem List/Past Medical History Ongoing Acute bronchitis Acute frontal sinusitis Anxiety disorder BMI 20.0-20.9, adult BMI 21.0-21.9, adult Breast cancer screening by mammogram Cerumen impaction Dupuytrens contracture Fluid level behind tympanic membrane of both ears Foot pain, right Gastritis History of non-ST elevation myocardial infarction (NSTEMI) History of recent fall Ingrown right big toenail Lower extremity neuropathy Lump of right breast Onychomycosis Osteoarthritis of lumbosacral spine Pain in lower back Personal history of adenomatous and serrated colon polyps Personal history of colon polyps, unspecified Pre-employment examination Radiculopathy Right elbow pain Right low back pain Screening for hyperlipidemia Sigmoid diverticulosis Sinusitis Spondylosis Syncope Trigger ring finger of right hand Vitamin D deficiency Wellness examination Historical Hospital discharge follow-up NSTEMI (non-ST elevated myocardial infarction) Sore throat Procedure/Surgical History Colonoscopy (09/27/2024), Colonoscopy (12/2017), Abdominal hysterectomy, Appendectomy, Cardiac catheterization, Cholecystectomy, Colonoscopy, D (dilation) and C (curettage) of uterus, Release of trigger finger, Release of trigger thumb. Medications amoxicillin 500 mg Cap, 500 mg= 1 cap(s), Oral, TID aspirin, 81 mg, Oral, Daily Compression stockings, See Instructions escitalopram 5 mg oral tablet, See Instructions meloxicam 15 mg Tab, See Instructions omeprazole 40 mg Cap-DR, 40 mg= 1 cap(s), Oral, Daily, 3 refills oxybutynin 10 mg ER Tab, 10 mg= 1 tab(s), Oral, Daily, [...] - Not Given Patient Refuses Normal [facility] Comment on above: Result Comment: Elec tronically Signed By: Millie Florentino\.br\Date and Time Signed: 02/05/25 14:15 EDT Ambulatory Visit Summaryon 0 01-31-2025 Ambulatory Visit Summary Ambulatory Visit Summary [place] BAC[place] :1955 Visit Date:01/31/2025 Ambulatory Visit Instructions Your Diagnosis Pre-employment examination Screening for hyperlipidemia Vitamin D deficiency BMI 21.0-21.9, adult Non-smoker Your Care Team Attending Physician - Millie Florentino Primary Care Physician - Millie Florentino This Is Your Medications List Misc Prescription (Compression stockings) aspirin cholecalciferol (Vitamin D3 2000 intl units oral Tab) escitalopram (escitalopram 5 mg oral tablet) meloxicam (meloxicam 15 mg Tab) omeprazole (omeprazole 40 mg Cap-DR) oxybutynin (oxybutynin 10 mg ER Tab) Procedures Performed Colonoscopy (09/27/2024), Colonoscopy (12/2017), Abdominal hysterectomy, Appendectomy, Cardiac catheterization, Cholecystectomy, Colonoscopy, D (dilation) and C (curettage) of uterus, Release of trigger finger, Release of trigger thumb. Discharge Vitals Heart Rate (Peripheral) 64 Respiratory Rate 16 Blood Pressure 130/82 Height 158.0 cm Height 62 in Weight 53.65 kg Weight 118.278 lb BMI 21.49 What to do next Scheduled Follow-Up Appointments Wednesday 9:20 AM EDT Where: [address] [id number]- Wednesday 2:30 PM EDT Where: [address] [address]- Medications What How Much When Why Instructions Unchanged aspirin 81 Milligram By Mouth Every day Unchanged cholecalciferol (Vitamin D3 2000 intl units oral Tab) 50 Microgram By Mouth Every day Unchanged escitalopram (escitalopram 5 mg oral tablet) See instructions Take 1 tablet by mouth once daily Unchanged meloxicam (meloxicam 15 mg Tab) See instructions Take 1 tablet by mouth once daily Unchanged Misc Prescription (Compression stockings) See instructions BMI 22.0-22.9, adult Non-smoker wear stocking when on your feet > 8 hours per day Unchanged omeprazole (omeprazole 40 mg Cap-DR) 1 Capsules By Mouth Every day Unchanged oxybutynin (oxybutynin 10 mg ER Tab) See instructions Take 1 tablet by mouth once daily Allergies No Known Allergies No Known Medication [...] Ingrown right big toenail Lower extremity neuropathy Lump of right breast Onychomycosis Osteoarthritis of lumbosacral spine Pain in lower back Personal history of adenomatous and serrated colon polyps Personal history of colon polyps, unspecified Pre-employment examination Radiculopathy Right elbow pain Right low back pain Screening for hyperlipidemia Sigmoid diverticulosis Sinusitis Spondylosis Syncope Trigger ring finger of right hand Vitamin D deficiency Wellness examination Historical - Any problem that [...] for choosing us for your care. Normal 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 History of Present Illness pt presents today for pre employment physcial Review of Systems PHQ Score Initial Depression Screen Score: 0 SCORE Physical Exam Vitals & Measurements HR: 64(Peripheral) RR: 16 BP: 130/82 SpO2: 97% HT: 62 in HT: 158.0 cm WT: 118.278 lb WT: 53.65 kg BMI: 21.49 General: alert, no acute distress ENMT: oral mucosa moist, no pharyngeal erythema or exudate Cardiovascular: regular rate and rhythm, normal peripheral perfusion Respiratory: Lungs CTA, respirations non labored Extremities: no deformity, no trauma Neurological: oriented x 4, LOC appropriate for age, CN II-XII intact, motor strength equal & normal bilaterally, speech normal Assessment/Plan 1. Pre-employment examination (Z02.1: Encounter for pre-employment examination) pt presents today for pre employment physical. forms completed and scanned into chart. will order annual wellness labs. pt is not fasting and will return for nurse visit. is also scheduled for [facility]W later this year. all questions answered. RTC 6 months Ordered: CBC w/ Auto Diff Comprehensive Metabolic Panel Lipid Panel Thyroid Stimulating Hormone Vitamin D 25 Hydroxy 2. Screening for hyperlipidemia (Z13.220: Encounter for screening for lipoid disorders) lipid panel ordered Ordered: CBC w/ Auto Diff Comprehensive Metabolic Panel Lipid Panel Thyroid Stimulating Hormone Vitamin D 25 Hydroxy 3. Vitamin D deficiency (E55.9: Vitamin D deficiency, unspecified) will order vitamin D Ordered: CBC w/ Auto Diff Comprehensive Metabolic Panel Lipid Panel Thyroid Stimulating Hormone Vitamin D 25 Hydroxy 4. BMI 21.0-21.9, adult (Z68.21: Body mass index [BMI] 21.0-21.9, adult) BMI education Ordered: CBC w/ Auto Diff Comprehensive Metabolic Panel Lipid Panel Thyroid Stimulating Hormone Vitamin D 25 Hydroxy 5. Non-smoker (Z78.9: Other specified health status) continue not smoking Ordered: CBC w/ Auto Diff Comprehensive Metabolic Panel Lipid Panel Thyroid Stimulating Hormone Vitamin D 25 Hydroxy Orders: escitalopram, See Instructions, Take 1 tablet by mouth once daily, # 90 tab(s), Refills(s) 0, Pharmacy: [facility], 158, cm, 12/07/24 14:09:00 EDT, Height/Length Dosing, 51.9, kg, 12/07/24 14:09:00 EDT, Weight Dosing escitalopram, See Instructions, Take 1 tablet by mouth once daily, # 90 tab(s), Refills(s) 0, Pharmacy: [facility], 158, cm, 01/31/25 10:20:00 EDT, Height/Length Dosing, 53.6, kg, 01/31/25 10:20:00 EDT, Weight Dosing fluticasone nasal, 2 spray(s), Nasal, Daily, 16 gram, Refill(s) 0, each nostril, [facility], 158, cm, 08/31/24 14:31:00 EST, Height/Length Dosing, 49.6, kg, 08/31/24 14:31:00 EST, Weight Dosing omeprazole, 40 mg = 1 cap(s), Oral, Daily, X 90 day(s), # 90 cap(s), Refills(s) 3, Pharmacy: [facility], 158, cm, 01/31/25 10:20:00 EDT, Height/Length Dosing, 53.6, kg, 01/31/25 10:20:00 EDT, Weight Dosing omeprazole, 40 mg = 1 cap(s), Oral, Daily, # 90 cap(s), Refills(s) 0, Pharmacy: [facility], 158, cm, 12/07/24 14:09:00 EDT, Height/Length Dosing, 51.9, kg, 12/07/24 14:09:00 EDT, Weight Dosing oxybutynin, See Instructions, Take 1 tablet by mouth once daily, # 90 tab(s), Refills(s) 3, Pharmacy: [facility], 158, cm, 04/06/24 14:41:00 EDT, Height/Length Dosing, 54.1, kg, 04/06/24 14:41:00 EDT, Weight Dosing oxybutynin, 10 mg = 1 tab(s), Oral, Daily, # 90 tab(s), Refills(s) 3, Pharmacy: [facility], 158, cm, 01/31/25 10:20:00 EDT, Height/Length Dosing, 53.6, kg, 01/31/25 10:20:00 EDT, Weight Dosing Follow-up No qualifying data available Problem List/Past Medical History Ongoing Acute bronchitis Acute frontal sinusitis Anxiety disorder BMI 20.0-20.9, adult Breast cancer screening by mammogram Cerumen impaction Dupuytrens contracture Fluid level behind tympanic membrane of both ears Foot pain, right Gastritis History of non-ST elevation myocardial infarction (NSTEMI) History of recent fall Ingrown right big toenail Lower extremity neuropathy Lump of right breast Onychomycosis Osteoarthritis of lumbosacral spine Pain in lower back Personal history of adenomatous and serrated colon polyps Personal history of colon polyps, unspecified Pre-employment examination Radiculopathy Right elbow pain Right low back pain Screening for hyperlipidemia Sigmoid diverticulosis Sinusitis Spondylosis Syncope Trigger ring finger of right hand Vitamin D deficiency Wellness examination Historical Hospital discharge follow-up NSTEMI (non-ST elevated myocardial infarction) Sore throat Procedure/Surgical History Colonoscopy (09/27/2024), Colonoscopy (12/2017), Abdominal hysterectomy, Appendectomy, Cardiac catheterization, Cholecystectomy, Colonoscop (more content not included)... Normal [facility] Comment on above: Result Comment: Elec tronically Signed By: Millie Florentino\.br\Date and Time Signed: 01/31/25 10:47 EDT Family Medicine Office/Clini c Noteon 12-07-2024 Family Medicine Office/Clinic Note Family Medicine Office/Clinic Note HPI Staff [place] is a 68 year old female presenting for acute visit Onset: 1 day ago Location: Right breast Characteristics: lump Questions/Concerns: Having pain in right breast , denies any redness or warmth History of Present Illness pt c/o painful lump of right breast Review of Systems PHQ Score Initial Depression Screen Score: 0 SCORE Physical Exam Vitals & Measurements HR: 66(Peripheral) RR: 18 BP: 110/84 SpO2: 98% HT: 62 in HT: 158.0 cm WT: 114.42 lb WT: 51.9 kg BMI: 20.79 General: alert, no acute distress ENMT: oral mucosa moist, no pharyngeal erythema or exudate Cardiovascular: regular rate and rhythm, normal peripheral perfusion Respiratory: Lungs CTA, respirations non labored Extremities: no deformity, no trauma Neurological: oriented x 4, LOC appropriate for age, CN II-XII intact, motor strength equal & normal bilaterally, speech normal breast: right breast lump palpated small grape size rubbery moveable Assessment/Plan 1. Lump of right breast (N63.10: Unspecified lump in the right breast, unspecified quadrant) pt noticed a painful lump of right breast. lump the size of a small grape palpated at 6 oclock position below nipple. will order ultrasound for further evaluation. pt had normal mammogram in June. i feel it is fibrocystic tissue that is inflamed. pt admits to drinking a lot of caffeine. order faxed to [facility] 2. BMI 20.0-20.9, adult (Z68.20: Body mass index [BMI] 20.0-20.9, adult) BMI education 3. Non-smoker (Z78.9: Other specified health status) [...] Ingrown right big toenail Lower extremity neuropathy Lump of right breast Onychomycosis Osteoarthritis of lumbosacral spine Pain in lower back Personal history of adenomatous and serrated colon polyps Personal history of colon polyps, unspecified Radiculopathy Right elbow pain Right low back pain Sigmoid diverticulosis Sinusitis Spondylosis Syncope Trigger ring finger of right hand Wellness examination Historical Hospital discharge follow-up NSTEMI (non-ST elevated myocardial infarction) Sore throat Procedure/Surgical History Colonoscopy (09/27/2024), Colonoscopy (12/2017), Abdominal hysterectomy, Appendectomy, Cardiac catheterization, Cholecystectomy, Colonoscopy, D (dilation) and C (curettage) of uterus, Release of trigger finger, Release of trigger thumb. Medications aspirin, 81 mg, Oral, Daily Compression stockings, See Instructions escitalopram 5 mg oral tablet, See Instructions Flonase 0.05 mg/inh [place], 2 spray(s), Nasal, Daily meloxicam 15 mg [...] - Not Given Patient Refuses SARS-CoV-2 mRNA (tomilena 5y-11y) vac - Not Given Patient Refuses Normal [facility] Comment on above: Result Comment: Elec tronically Signed By: Millie Florentino\Date and Time Signed: 12/07/24 14:28 EDT Reminderson 09-28-2024 Reminders Reminders From: Arabella Herrera LPN To: N - Clinical; Sent: 09/28/2024 14:17:59 EST Show up: 08/27/2034 07:00:00 EST Subject: colonoscopy recall Due Date/Time: 09/27/2034 07:00:00 EST Reminder/Recall Patient due for screening colonoscopy 09/27/2034. [facility] Family Medicine Office/Clini c Noteon 08-31-2024 Family Medicine Office/Clinic Note Family Medicine Office/Clinic Note HPI Staff [place] is a 68 year old female presenting [...] Daily, 16 gram, Refill(s) 0, each nostril, [facility], 158, cm, 08/31/24 14:31:00 EST, Height/Length Dosing, 49.6, kg, 08/31/24 14:31:00 EST, Weight Dosing Influenza Type A&B POC 48464 Rapid COVID POC 09127 Orders: amoxicillin, 500 mg = 1 cap(s), Oral, TID, X 7 day(s), # 21 cap(s), Refills(s) 0, Pharmacy: [facility], 158, cm, 08/31/24 14:31:00 [...] oral tablet, See Instructions Flonase 0.05 mg/inh [place], 2 spray(s), Nasal, Daily meloxicam 15 mg [...] 14:43:00) Rapid Covid POC: Negative (08/31/24 14:43:00) [facility] Comment on above: Result Comment: Elec tronically Signed By: Millie Florentino\.br\Date and Time Signed: 08/31/24 14:46 EST Ambulatory Visit Summaryon 1 09-18-2023 Ambulatory Visit Summary Ambulatory Visit Summary [place] :1955 Visit Date:07/19/2024 Ambulatory Visit Instructions Your [...] Follow-Up Appointments Wednesday 2:30 PM EDT Where: [address] [address]- Medications What How Much When Why Instructions [...] for choosing us for your care. Normal [facility] Ambulatory Visit Summaryon 1 Ambulatory Visit Summary Ambulatory Visit Summary [place] BACON :1955 Visit Date:06/06/2024 Ambulatory Visit Instructions [...] Follow-Up Appointments Wednesday 2:30 PM EDT Where: [facility] [place] [id number]- Medications What How Much When Why Instructions [...] for choosing us for your care. Normal [facility] Family Medicine Office/Clini c Noteon 06-06-2024 Family Medicine Office/Clinic Note Family Medicine Office/Clinic Note HPI Staff [place] is a 68 year old female presenting with needing clearance to go back to work [employer]- waiting for MRI - Has not called for them to schedule them Message in chart from consult with Dr Vela in [place] or [place] yesterday- Still has to call back History [...] for malignant neoplasm of breast) order for [facility] provided and faxed Follow-up No qualifying [...] 5y-11y) vac - Not Given Patient Refuses [facility] Comment on above: Result Comment: Elec tronically Signed By: Millie Florentino\.br\Date and Time Signed: 06/06/24 14:24 EDT Provider Letteron 06-06-2024 Provider Letter Provider Letter [address] [place] [address] June 06, 2024 [facility] [address] [phone] : 1955 To Whom It May Concern, Please excuse above patient from work due to injury. Date of Illness: From: 05/29/2024 To: 06/07/2024 May Return to Work On:06/08/2024 Restrictions: No vibrating hand tools Sincerely, JAH Jon [facility] Provider Letter Provider Letter [address] [place] [address] June 06, 2024 [facility] [address] [place] [address] : 1955 To Whom It May Concern, Please excuse above patient from work due to injury. Date of Illness: From: 05/29/2024 To: 06/07/2024 May Return to Work On:06/08/2024 Restrictions: none Sincerely, JAH Jon [facility] Ambulatory Visit Summaryon 0 06-02-2024 Ambulatory Visit Summary Ambulatory Visit Summary [place] BAC[place] :1955 Visit Date:06/01/2024 Ambulatory Visit Instructions [...] Follow-Up Appointments Wednesday 2:30 PM EDT Where: [place] [id number]- You Need to Complete the Following [place] Mamm Screen w/CAD if perf and 3D Dimitri, 06/01/24, Routine, Order for Future Visit, Transport Mode: Ambulatory, Reason: Screening, No, Breast cancer screening by mammogram, [email or web address]_radiology_subspe tawana [facility] Medications What How Much When Why [...] i (more content not included)... Normal [facility] Medicine Office/Clini c Noteon 06-02-2024 Family Medicine Office/Clinic Note Family Medicine Office/Clinic Note HPI Staff [place] is a 68 year old female presents today for colonoscopy & mammogram order. Order sent for mammogram to [facility] by Lydia Colonoscopy ? [facility] if they do this? History of [...] would like to have it done at [facility]. referral placed for Dr. Vela to do at [facility] Ordered: E&M of Est. Patient Straight Fwd 10-19 Min [id number] [facility] [place] 2. Right low back pain (M54.50: Low back pain, unspecified) completed FMLA paperwork. pain is somewhat improving. waiting for MRI Ordered: E&M of Est. Patient Straight Fwd 10-19 Min [id number] Orders: [id number] Pain severity quantified; pain present [...] - Not Given Patient Refuses Normal [facility] Comment on above: Result Comment: Elec tronically Signed By: Carlos BARRON, Millie Gallahger\.br\Date and Time Signed: 06/02/24 10:05 EDT Family [...] of clutter to prevent tripping and/or falling. [place] Advance Directives reviewed. Documents provided to patient, [...] ordered and has been faxed to the [facility] per patient request, hospital will call to [...] sturdiness. (more content not included)... Normal [facility] Comment on above: Result Comment: Elec tronically Signed By: Millie Florentino\.br\Date and Time Signed: 06/02/24 09:25 EDT\.br\Electronically Co-Signed By: Lydia Rodrigues\.br\Date and Time Co-Signed: 06/01/24 15:44 EDT Ambulatory Visit Summaryon 0 05-29-2024 Ambulatory Visit Summary Ambulatory Visit Summary JERAMIE BACONOMI Sola :1955 Visit Date:05/29/2024 Ambulatory Visit Instructions [...] Appointments 2023 2:30 PM EDT With: Where: [address] [phone]- 2023 3:00 PM EDT With: Millie Florentino Where: [address] [address]- Medications What How Much When [...] for choosing us for your care. Normal [facility] Family Medicine Office/Clini c Noteon 05-29-2024 Family Medicine Office/Clinic Note Family Medicine Office/Clinic Note Chief Complaint Pain following fall HPI Staff Pt presents today after a fall on Wednesday Onset: Wednesday Location:above Rt hip/Rt side Characteristics:_denies bruising Aggravated by: walking, sitting, standing Relieved [...] pain, # 30 tab(s), Refills(s) 0, Pharmacy: [facility], 158, cm, 05/29/24 13:41:00 EDT, Height/Length Dosing, 52.5, kg, 05/29/24 13:41:00 EDT, Weight Dosing 2. Right low back pain (M54.50: Low back pain, unspecified) pt fell and landed on right lower back Ordered: tramadol, 50 mg = 1 tab(s), Oral, q12hr, PRN for pain, # 30 tab(s), Refills(s) 0, Pharmacy: [facility], 158, cm, 05/29/24 13:41:00 EDT, Height/Length Dosing, 52.5, kg, 05/29/24 13:41:00 EDT, Weight Dosing 3. BMI 21.0-21.9, adult (Z68.21: Body mass index [BMI] 21.0-21.9, adult) BMI education Ordered: tramadol, 50 mg = 1 tab(s), Oral, q12hr, PRN for pain, # 30 tab(s), Refills(s) 0, Pharmacy: [facility], 158, cm, 05/29/24 13:41:00 EDT, Height/Length [...] pain, # 30 tab(s), Refills(s) 0, Pharmacy: [facility], 158, cm, 05/29/24 13:41:00 EDT, Height/Length [...] - Not Given Patient Refuses Normal [facility] Comment on above: Result Comment: Elec tronically Signed By: Millie Florentino\.br\Date and Time Signed: 05/29/24 14:13 EDT Provider Letteron 05-29-2024 Provider Letter Provider Letter May 29, 2024 [place] [address] : 1955 To Whom It May Concern, Please excuse above patient from work due to medical Date of Illness: From: _ 05-29-24 To: _ 05-30-24 May Return to Work On: 05-31-24 Restrictions: _ Comments: _ Sincerely, Normal [facility] XR lumbar spine min 4V*on XR lumbar spine min 4V* [facility] Main [place] [address] [place] [id number] XRay Report Signed Patient: [place] Bacon MR#: [id number] 6 : 1955 Acct:[id number] Age/Sex: 68 / F ADM Date: 05/27/24 Loc: XDUCLY Room: Type: [facility] Attending Dr: Zoila العراقي APRN Copies [...] Marinelli Jr., D.O.05/27/2024 2:47 PM Dictation Location: [place] [address] Transcribed By: [facility] 05/27/24 1447 Dictated By: Eleuterio Marinelli Jr, DO 05/27/24 1446 Signed By: 05/27/24 1447 Normal [facility] Ambulatory Visit Summaryon 0 05-12-2024 Ambulatory Visit Summary Ambulatory Visit Summary FLORIDA BACON :1955 Visit Date:05/12/2024 Ambulatory Visit Instructions Your Diagnosis Foot pain, right Non-smoker BMI 20.0-20.9, adult Your Care Team Attending Physician - Millie Florentino Primary Care Physician - Millie Florentino This Is Your Medications List [facility] Prescription (Compression stockings) aspirin carbamide peroxide otic [...] Appointments 2023 2:30 PM EDT With: Where: [place] [id number]- 2023 3:00 PM EDT With: Millie Florentino Where: [address] [address]- Someone Will Contact You Regarding These Appointments [facility] [place] Ambulatory Referral, Podiatry, Dr. [address], 05/12/24 10:37:00 EDT, Foot pain, right Non-smoker BMI 20.0-20.9, adult Medications What How Much When Why Instructions New meloxicam (meloxicam 15 mg Tab) 1 Tablets By Mouth Every day Foot pain, right Non-smoker BMI 20.0-20.9, adult Pickup at [facility] 0[facility] New methylPREDNISolone (Medrol 4 mg Tab) 1 Packets By Mouth As Directed Foot pain, right Non-smoker BMI 20.0-20.9, adult Duration: 6 Days as directed on package labeling Pickup at [facility] 1429 Unchanged aspirin 81 Milligram By Mouth [...] Gram By Mouth Every day Pharmacy Information [facility]: [address] [place], [place] [id number] [phone] Allergies No Known Medication Allergies Problems Ongoing [...] choosing us for your care. Normal [facility] Family Medicine Office/Clini c Noteon 05-12-2024 Family Medicine Office/Clinic Note Family Medicine Office/Clinic Note HPI Staff [place] is a 68 year old female presenting [...] Daily, # 30 tab(s), Refills(s) 0, Pharmacy: [facility], 158, cm, 05/12/24 10:25:00 EDT, Height/Length Dosing, 52.3, kg, 05/12/24 10:25:00 EDT, Weight Dosing methylPREDNISolone, = 1 packet(s), Oral, As Directed, as directed on package labeling, X 6 day(s), # 21 tab(s), Refills(s) 0, Pharmacy: [facility], 158, cm, 05/12/24 10:25:00 EDT, Height/Length Dosing, 52.3, kg, 05/12/24 10:25:00 EDT, Weight Dosing [facility] [place] Ambulatory Referral 2. Non-smoker (Z78.9: Other specified health status) continue not smoking Ordered: meloxicam, 15 mg = 1 tab(s), Oral, Daily, # 30 tab(s), Refills(s) 0, Pharmacy: [facility], 158, cm, 05/12/24 10:25:00 EDT, Height/Length Dosing, 52.3, kg, 05/12/24 10:25:00 EDT, Weight Dosing methylPREDNISolone, = 1 packet(s), Oral, As Directed, as directed on package labeling, X 6 day(s), # 21 tab(s), Refills(s) 0, Pharmacy: [facility], 158, cm, 05/12/24 10:25:00 EDT, Height/Length Dosing, 52.3, kg, 05/12/24 10:25:00 EDT, Weight Dosing Body Mass Index (BMI) documented 3008F Current tobacco non-user 1036F Depression Screening Negative 3352F [facility] [place] Ambulatory Referral Influenza immunization [...] Daily, # 30 tab(s), Refills(s) 0, Pharmacy: [facility], 158, cm, 05/12/24 10:25:00 EDT, Height/Length Dosing, 52.3, kg, 05/12/24 10:25:00 EDT, Weight Dosing methylPREDNISolone, = 1 packet(s), Oral, As Directed, as directed on package labeling, X 6 day(s), # 21 tab(s), Refills(s) 0, Pharmacy: [facility], 158, cm, 05/12/24 10:25:00 EDT, Height/Length Dosing, 52.3, kg, 05/12/24 10:25:00 EDT, Weight Dosing Body Mass Index (BMI) documented 3008F Current tobacco non-user 1036F Depression Screening Negative 3352F [facility] [place] Ambulatory Referral Influenza immunization [...] Cholecystecto (more content not included)... Normal [facility] Comment on above: Result Comment: Elec tronically Signed By: Millie Florentino\.br\Date and Time Signed: 05/12/24 10:43 EDT Follow-Upon 04-21-2024 Follow-Up [id number] Mary Bacon 1955 F Date Provider Department Center 04/21/2024 3848-DAVID POLO [facility] [address] [facility] No family history on file Level of Service:04523 [place] OFFICE/OUTPATIENT ESTABLISHED LOW MDM 20 MIN Reason for Visit and Comments: Follow-up [577527] - [facility] Follow up Concerns: No further cardiac concerns/symptoms. Normal [facility] Vital Signs Date Time Vital Sign Value Performing Clinician Facility 07-19-2024 15:52-0500 Blood Pressure Location Addy VELA [facility] 07-19-2024 15:52-0500 Diastolic blood pressure 58 mm[Hg] Addy VELA [facility] 07-19-2024 15:52-0500 Heart rate 72 /min Addy VELA [facility] 07-19-2024 15:52-0500 Respiratory rate 16 /min Addy VELA [facility] [address] 07-19-2024 15:52-0500 Systolic blood pressure 122 mm[Hg] Addy VELA [facility] [address] 05-27-2024 14:05-0400 Body height 156.21 cm MD Luisito Roth Work Phone: [facility] 05-27-2024 14:05-0400 Body mass index (BMI) [Ratio] 21.4 kg/m2 MD Luisito Roth Work Phone: [facility] 05-27-2024 14:05-0400 Body temperature 98.2 [degF] MD Luisito Roth Work Phone: [facility] 05-27-2024 14:05-0400 Body weight 52.16 kg MD Luisito Roth Work Phone: [facility] 05-27-2024 14:05-0400 Diastolic blood pressure 69 mm[Hg] MD Luisito Roth Work Phone: [facility] 05-27-2024 14:05-0400 Heart rate 56 /min MD Luisito Roth Work Phone: [facility] 05-27-2024 14:05-0400 SaO2% (BldA) [Mass fraction] 98 % MD Luisito Roth Work Phone: [facility] 05-27-2024 14:05-0400 Systolic blood pressure 128 mm[Hg] MD Luisito Roth Work Phone: [facility] 10-29-2023 13:26-0500 Blood Pressure Location PHILLIP NUNEZ [facility] 10-29-2023 13:26-0500 Body temperature 97.88 [degF] PHILLIP NUNEZ [facility] 02-23-2024 13:26-0500 Diastolic blood pressure 80 mm[Hg] [place] [facility] 10-29-2023 13:26-0500 Heart rate 77 /min [facility] 10-29-2023 13:26-0500 SaO2% (BldA) [Mass fraction] 96 % [facility] 10-29-2023 13:26-0500 Systolic blood pressure 120 mm[Hg] [facility] Encounters Encounter Date Encounter Type Care Provider Facility Start: 06-04-2025 ambulatory Millie L Carlos Facility: [facility] Start: 04-11-2025 End: 04-11-2025 ambulatory LIZBETH QUINTERO Facility:[facility] Start: 04-09-2025 End: 04-09-2025 ambulatory [facility] Start: 03-23-2025 End: 03-23-2025 ambulatory Millie L Carlos Facility[place] Start: 03-08-2025 ambulatory Millie L Carlos Facility: [facility] [address] Start: 02-23-2025 ambulatory Millie L Carlos Facility: [facility] Start: 02-05-2025 End: 02-05-2025 ambulatory Millie L Carlos Facility:[facility] Start: 01-31-2025 End: 01-31-2025 ambulatory [facility] L [facility] Start: 12-07-2024 End: 12-07-2024 ambulatory Millie L Carlos Facility:[facility] Start: 09-27-2024 End: 09-27-2024 ambulatory Addy R NILL Facility:CD:[id number] Start: 08-31-2024 End: 08-31-2024 ambulatory Millie L Carlos Facility:[facility] Start: 07-19-2024 End: 07-19-2024 ambulatory Addy R NILL [place] Start: 07-19-2024 End: 07-19-2024 Patient encounter procedure Addy Koch LISA [facility] Start: 06-06-2024 End: 06-06-2024 ambulatory Millie L Carlos Facility:[facility] [address] Start: 06-01-2024 End: 06-01-2024 ambulatory Millie L Carlos Facility:[facility] [address] Start: 05-29-2024 End: 05-29-2024 ambulatory Millie L Carlos Facility:[facility] [address] Start: 05-27-2024 End: 05-27-2024 ambulatory MD Luisito Roth Work Phone: [facility] Work Phone: Start: 05-27-2024 End: 05-27-2024 Patient encounter procedure MD Luisito Roth Work Phone: [facility] Work Phone: Start: 05-12-2024 End: 05-12-2024 ambulatory Millie L Carlos Facility:[facility] [place] Start: 04-21-2024 End: 04-21-2024 ambulatory [facility] Start: 04-19-2024 End: 04-19-2024 ambulatory Millie L Carlos Facility:[facility] [place] Start: 01-20-2024 End: 01-20-2024 ambulatory LARISSA SUTTON Not Available Start: 12-31-2023 End: 12-31-2023 ambulatory LAUREANO AMARAL Not Available Start: 10-29-2023 End: 10-29-2023 Patient encounter procedure PHILLIP NUNEZ [facility] Start: 07-17-2022 End: 07-17-[address] GINA CULVER Facility:[facility] Procedures Date Procedure Procedure Detail Performing Clinician Start: 05-27-2024 X-ray of lumbar spin e, four or more views MD Luisito Roth Work Phone: Start: 04-21-2024 Follow-up visit Follow-up DAVID POLO Start: 12-05-2017 Colonoscopy Addy SHAH LL Abdominal hysterectomy Fredo el NILL Appendectomy PHILLIP NUNEZ Cardiac catheterization Rc ael NILL Cholecystectomy PHILLIP OR TIZ Colonoscopy PHILLIP NUNEZ Comment on above: 01/24 normal repeat 5 years no polyps Dilation and curetta ge of uterus PHILLIP NUNEZ Partial hysterectomy VIMAL QUINTERO NUNEZ Release of trigger finger Mi chael NILL Release of trigger thumb Charlie hael NILL Plan of Treatment Date Care Activity Detail Author Patient Education Low back pain in adults [facility] Work Phone: Immunizations Immunization Date Immunization Notes Care Provider Ginette marques NEGATED: Highlighted row has not occurred!06-01-2024 influenza virus vaccine, unspecified formulation Addy VELA [facility] NEGATED: Highlighted row has not occurred!11-30-2022 influenza virus vaccine, unspecified formulation PHILLIP NUNEZ [facility] NEGATED: Highlighted row has not occurred!11-30-2022 SARS-CoV-2 mRNA (tozinameran 5y-11y) vaccine PHILLIP NUNEZ [facility] Payers Date Payer Category Payer Self-pay [id number] 2024 Unknown [id number] 2023 Unknown [id number] 1959 Unknown [id number] 1955 Unknown [id number] 2.16.84 0.1.840336.3.579.2.593 1955 Unknown [id number] 2.16.84 0.1.134978.3.579.2.1258 1955 Unknown [id number] 2.16.84 0.1.285176.3.579.2.1259 1955 Unknown [id number] 2.16.84 0.1.218378.3.579.2.1258 1955 Unknown [id number] 2.16.84 0.1.329232.3.579.2.125 1955 Unknown [id number] 2.16.8 40.1.653227.3.579.2. 1955 Unknown [id number] 2.16.8 40.1.204296.3.579.2. 1955 Unknown [id number] 2.16.8 40.1.711722.3.579.2. 1955 Unknown [id number] 2.16.8 40.1.294146.3.579.2. 1955 Unknown [id number] 2.16.8 40.1.745223.3.579.2. 1955 Unknown [id number] 2.16.8 40.1.752825.3.579.2. 1955 Unknown [id number] 2.16.8 40.1.585650.3.579.2. 1955 Unknown [id number] 2.16.8 40.1.877175.3.579.2. 1955 Unknown [id number] 2.16.8 40.1.215013.3.579.2. 1955 Unknown [id number] 2.16.8 40.1.096636.3.579.2.72 1955 Unknown [id number] 2.16.8 40.1.959721.3.579.2.727 1955 Unknown [id number] 2.16.8 40.1.008568.3.579.2.727 1955 Unknown [id number] 2.16.8 40.1.531156.3.579.2.727 1955 Unknown [id number] 2.16.8 40.1.437001.3.579.2.727 1955 Unknown [id number] 2.16.8 40.1.968878.3.579.2.727 1955 Unknown [id number] 2.16.8 40.1.488684.3.579.2.727 1955 Unknown [id number] 2.16.8 40.1.818692.3.579.2.727 1955 Unknown [id number] 2.16.8 40.1.215131.3.579.2.727 Medicare Medicare [id number] Unknown [id number] 2.16.8 40.1.436167.3.579.2.531 Social History Date Type Detail Facility Start: 10-29-2023 End: 07-19-2024 Tobacco smoking status Never smoked tobacco (finding) [facility] Comment on above: denies use. Tobacco smoking status Never [facility] Comment on above: denies use. Sex Assigned At Female [facility] Start: 1955 Sex Assigned At Female [facility] Functional Status Date Assessment Result Facility 07-19-2024 Functional Status N/A [facility] [address] 10-29-2023 Functional Status N/A [facility] Clinical Notes 04-19-2024 to 04-11-2025 Radiology Note Date & Type Note Facility 04-11-2025 Note Patient Education Infectious Disease Pharyngitis Pharyngitis is a sore throat (pharynx). This is when there is redness, pain, and swelling in your throat. Most of the time, this condition gets better on its own. In some cases, you may need medicine. What are the causes? An infection from a virus. ??? An infection from bacteria. ??? Allergies. What increases the risk? Being 5?24 years old. ??? Being in crowded environments. These include: ? Daycares. ? Schools. ? Dormitories. ??? Living in a place with cold temperatures outside. ??? Having a weakened disease-fighting (immune) system. What are the signs or symptoms? Symptoms may vary depending on the cause. Common symptoms include: ??? Sore throat. ??? Tiredness (fatigue). ??? Low-grade fever. ??? Stuffy nose. ??? Cough. ??? Headache. Other symptoms may include: ??? Glands in the neck (lymph nodes) that are swollen. ??? Skin rashes. ??? Film on the throat or tonsils. This can be caused by an infection from bacteria. ??? Vomiting. ??? Red, itchy eyes. ??? Loss of appetite. ??? Joint pain and muscle aches. ??? Tonsils that are temporarily bigger than usual (enlarged). How is this treated? Many times, treatment is not needed. This condition usually gets better in 3?4 days without treatment. If the infection is caused by a bacteria, you may be need to take antibiotics. Follow these instructions at home: Medicines ??? Take [id number] and prescription medicines only as told by your doctor. ??? If you were prescribed an antibiotic medicine, take it as told by your doctor. Do not stop taking the antibiotic even if you start to feel better. ??? Use throat lozenges or sprays to soothe your throat as told by your doctor. ??? Children can get pharyngitis. Do not give your child aspirin. Managing pain To help with pain, try: ??? Sipping warm liquids, such as: ? Broth. ? Herbal tea. ? Warm water. ??? Eating or drinking cold or frozen liquids, such as frozen ice pops. ??? Rinsing your mouth (gargle) with a salt water mixture 3?4 times a day or as needed. ? To make salt water, dissolve ??1 tsp (3?6 g) of salt in 1 cup (237 mL) of warm water. ? Do not swallow this mixture. ??? Sucking on hard candy or throat lozenges. ??? Putting a cool-mist humidifier in your bedroom at night to moisten the air. ??? Sitting in the bathroom with the door closed for 5?10 minutes while you run hot water in the shower. General instructions ??? Do not smoke or use any products that contain nicotine or tobacco. If you need help quitting, ask your doctor. ??? Rest as told by your doctor. ??? Drink enough fluid to keep your pee (urine) pale yellow. How is this prevented? Wash your hands often for at least 20 seconds with soap and water. If soap and water are not available, use hand brake repair supervisor. ??? Do not touch your eyes, nose, or mouth with unwashed hands. Wash hands after touching these areas. ??? Do not share cups or eating utensils. ??? Avoid close contact with people who are sick. Contact a doctor if: ??? You have large, tender lumps in your neck. ??? You have a rash. ??? You cough up green, yellow-brown, or bloody spit. Get help right away if: ??? You have a stiff neck. ??? You drool or cannot swallow liquids. ??? You cannot drink or take medicines without vomiting. ??? You have very bad pain that does not go away with medicine. ??? You have problems breathing, and it is not from a stuffy nose. ??? You have new pain and swelling in your knees, ankles, wrists, or elbows. These symptoms may be an emergency. Get help right away. Call your local emergency services (911 in the [place] ??? Do not wait to see if the symptoms will go away. ??? Do not drive yourself to the hospital. Summary ??? Pharyngitis is a sore throat (pharynx). This is when there is redness, pain, and swelling in your throat. ??? Most of the time, pharyngitis gets better on its own. Sometimes, you may need medicine. ??? If you were prescribed an antibiotic medicine, take it as told by your doctor. Do not stop taking the antibiotic even if you start to feel better. This information is not intended to replace advice given to you by your health care provider. Make sure you discuss any questions you have with your health care provider. Document Revised: 11/19/2021 Document Reviewed: 11/19/2021 Audit Verify Patient Education ? [address] [facility] 04-09-2025 Note [place] Cardiology - [facility] Subjective [place] Bacon is a 69 y.o. year old female patient being seen for 1 year follow up. Patient states she is doing good. Patient denies chest pain, SOB, LEAHY, palpitations/racing heart, dizziness, fatigue, or leg swelling. Patient states she has no complaints. Patient Active Problem List Diagnosis NSTEMI (non-ST elevated myocardial infarction) (CMS/[facility]) Gastroenteritis Anxiety Abnormal stress test Acute bronchitis Acute frontal sinusitis Breast cancer screening by mammogram Screening for hyperlipidemia Cerumen impaction Dupuytrens contracture Fluid level behind tympanic membrane of both ears Hallux rigidus, right foot History of colonic polyps History of non-ST elevation myocardial infarction (NSTEMI) History of recent fall Hospital discharge follow-up Ingrown right big toenail Low back pain Lower extremity neuropathy Radiculopathy Lump of right breast Onychomycosis Osteoarthritis of lumbosacral spine Pain in right foot Right elbow pain Sigmoid diverticulosis Sinusitis Sore throat Spondylosis Syncope Vitamin D deficiency No family history on file. Social History Tobacco Use Smoking status: Never Smokeless tobacco: Never Substance Use Topics Alcohol use: Yes Comment: occasional Drug use: Never ELICIA Bartholomew is seen in follow-up. This is the first time I am meeting her. She used to follow-up with Dr. David Polo from our group. She has a history of type II NSTEMI in the setting of acute illness with nausea vomiting and diarrhea and dehydration. Coronary angiography showed no significant coronary artery disease. 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 today she reports that she has been doing really well. she denies chest pain, shortness of breath, palpitations, dizziness, syncope and leg edema. she has good exercise tolerance. There is no claudication. Review of Systems Constitutional: Negative. Objective Visit Vitals BP 127/64 (BP Location: Right arm, Patient Position: Sitting) Pulse 70 Ht 1.549 m (5' 1 ) Wt 53.1 kg (117 lb) SpO2 98% BMI 22.11 kg/m??? Smoking Status Never BSA 1.51 m??? Physical Exam Constitutional: Appearance: She is well-developed. She is not ill-appearing. HENT: Head: Normocephalic and atraumatic. Nose: Nose normal. Eyes: General: No scleral icterus. Pupils: Pupils are equal, round, and reactive to light. Neck: Thyroid: No thyromegaly. Vascular: No JVD. Cardiovascular: Rate and Rhythm: Normal rate and regular rhythm. Pulses: Radial pulses are 2+ on the right side and 2+ on the left side. Heart sounds: Normal heart sounds. No murmur heard. No friction rub. No gallop. Pulmonary: Effort: Pulmonary effort is normal. No respiratory distress. Breath sounds: Normal breath sounds. No wheezing or rales. Chest: Chest wall: No tenderness. Abdominal: General: Bowel sounds are normal. There is no distension. Palpations: Abdomen is soft. Tenderness: There is no abdominal tenderness. Musculoskeletal: General: No swelling. Cervical back: Neck supple. Skin: General: Skin is warm and dry. Neurological: General: No focal deficit present. Mental Status: She is alert and oriented to person, place, and time. Psychiatric: Mood and Affect: Mood normal. Behavior: Behavior is cooperative. Judgment: Judgment normal. Allergies No Known Allergies Medications Current Outpatient Medications: aspirin 81 mg EC tablet, Take 81 mg by mouth 1 (one) time., Disp: , Rfl: cholecalciferol, vitamin D3, (Vitamin D3) 50 mcg (2,000 unit) capsule, Take 3 capsules by mouth in the morning., Disp: , Rfl: escitalopram (Lexapro) 5 mg tablet, Take 5 mg by mouth in the morning., Disp: , Rfl: meloxicam (Mobic) 15 mg tablet, Take 15 mg by mouth in the morning., Disp: , Rfl: omeprazole (PriLOSEC) [address] capsule, Take 40 mg by mouth before breakfast., Disp: , Rfl: oxybutynin XL (Ditropan-XL) 10 mg 24 hr tablet, Take 10 mg by mouth in the morning., Disp: , Rfl: Recent Labs Blood testing 03/23/2025: Hemoglobin 13.8, platelets 211. BUN 25, Potassium 4.3, creatinine 0.7, LFTs normal, cholesterol 177, triglycerides 70, HDL 51, LDL 118. Imaging and other tests Cardiac catheterization 03/29/2024: Final Impression: 1) Coronary angiogram revealed relatively normal coronary arteries. No significant CAD noted. 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 Plan: 1) Beta-raoul as tolerated for myocardial bridging 2) in light of the relatively normal coronary arteries, her presentation is consistent with type II MS (supply/demand mismatch) in setting of acute medical illness Stress test 03/28/2024: Negative treadmill EKG stress test for ischemia, The Colindres Score 5.5 consistent with low risk estimates an annual cardiovascular mortality of 0% and a five year survival of 95% Using the Colindres Sco (more content not included)... [facility] 03-23-2025 Note Nurse Consultation N ote Reason for Visit Pt presents today for lab draw. Assessment/Plan 1. Wellness examination (Z00.00: Encounter for general adult medical examination without abnormal findings) Medications aspirin, 81 mg, Oral, Daily Compression stockings, See Instructions escitalopram 5 mg oral tablet, See Instructions meloxicam 15 mg Tab, See Instructions omeprazole 40 mg Cap-DR, 40 mg= 1 cap(s), Oral, Daily, 3 refills oxybutynin 10 mg ER Tab, 10 mg= 1 tab(s), Oral, Daily, 3 refills Vitamin D3 2000 intl units oral Tab, 50 mcg, Oral, Daily Allergies No Known Allergies No Known Medication Allergies Immunizations Vaccine Date Status Comments influenza virus vaccine, inactivated - Not Given Patient Refuses influenza virus vaccine, inactivated - Not Given Patient Refuses SARS-CoV-2 mRNA (domitila 5y-11y) vac - Not Given Patient Refuses [facility] 07-19-2024 Note General Surgery Offi ce/Clinic Note [...] Medication Allergies Social (more content not included)... [facility] Comment on above: Result Comment: Neville cheungally Signed By: LISA MACIAS, Addy Julien\Date and [...] Keep items that you use often in [id number] places. Lower the shelves around your home [...] the way. ? Do not use floor albanian or wax that makes floors slippery. What [...] Control and Prevention, STEADI: cdc.gov ? National [place] on Aging: linda.nih.gov ? National [place] on Aging: linda.nih.gov Contact a doctor if: [...] advice given (more content not included)... [facility] 04-21-2024 Note Cardiology Follow Up Progress Note Chief Complaint: Follow-up ([facility] Follow up/Concerns: No further cardiac concerns/symptoms. ) HPI: [place] Bacon is a 68 y.o. female who with a past medical history including overactive bladder, anxiety, vitamin D deficiency, and recent NSTEMI who presents to [place] for post hospitalization follow up. Patient was transferred to [facility] from outside hospital after presenting with complaints of abdominal pain, nausea, vomiting, and diarrhea x 8 times per day. She was found to be dehydrated, and fluid resuscitation was performed. Her troponin was found to be elevated, show she was transferred for further evaluation/management. [facility], patient was found to have a significantly [...] Value Ventricular Rate 67 Atrial Rate 67 ND Interval 142 QRS DURATION 70 QT Interval 448 QTC CALCULATION(BAZETT) 473 P Perry 83 R-Perry -5 T Wave Perry -22 Impression Normal sinus rhythm Possible Inferior [...] Bubble Study Result Date: 03/27/2024 1 1 [facility] Heart Station [address] [place] [address] [phone] (fax) Echocardiogram-[facility] Name: FLOR[place] BACON Study Date: 03/27/2024 07:59 AM B/P: 109 mmHg/66 mmHg HR: Date of : 1955 Location: [facility] Height: 61 in. Age: 68 year(s) [...] Due to suboptima (more content not included)... [facility] 04-19-2024 Note Nurse Consultation N ote Reason [...] vac - Not Given Patient Refuses [facility] Evaluation + Plan note Future Appointments Appointment Date:04/27/2024 01:00:00 PM Scheduled Provider: Location:[facility] Appointment Type: Medicare Wellness Subsequent [facility] Evaluation + Plan note Future Appointments Appointment Date:06/04/2025 02:30:00 PM Scheduled Provider: Location:[facility] Appointment Type: Medicare Wellness Subsequent Future Scheduled TestsMA Mamm Screen w/CAD if perf and 3D Dimitri 06/01/24 [facility] General Surgery [place] Evaluation note Diagnosis Onset Date Low back pain acute [facility] Work Phone: Hospital course Narrative No data available for this section [facility] Hospital Discharge instructions No data available for this section [facility] Progress note No data available for this section [facility] Summary Purpose Family History [...] DATE CREATED AUTHOR AUTHOR'S ORGANIZ ATION 01/23/2024 [facility] EPIC DATE CREATED AUTHOR AUTHOR'S ORGANIZ ATION 06/04/2024 [facility] DATE CREATED AUTHOR AUTHOR'S ORGANIZ ATION 03/27/2025 [facility] DATE CREATED AUTHOR AUTHOR'S ORGANIZ ATION 04/11/2025 [facility] DATE CREATED AUTHOR AUTHOR'S ORGANIZ ATION 04/13/2025 [facility] Patient Care team informatio n (unrecognized [...] BE BASED ON THE PRIMARY CLINICAL RECORDS. [employer] [facility]. provides no warranty or guarantee of the accuracy or completeness of information in this document.
--- NOTE | 2025-04-21 19:45 | ED.LOWEXI1 ---
HPI HPI - Extremity Injury (Lower) General Chief Complaint: Extremity Injury, Lower Stated Complaint: FELL ON RIGHT FOOT WHILE TANGLED WITH DOG Time Seen by Provider: 04/21/25 19:43 Source: patient Mode of arrival: Wheelchair History of Present Illness HPI Narrative: tripped by dog and fell injuring right ankle and foot. Brought to ER by her daughter. States she felt her ankle pop at the scene. also sustained abrasion right elbow Related Data Home Medications ?Medication ?Instructions ?Recorded ?Confirmed oxybutynin chloride 10 mg 10 mg PO DAILY 03/25/24 09/27/24 tablet,extended release 24 hr aspirin 81 mg tablet,delayed 81 mg PO DAILY 07/31/24 09/27/24 release (Enteric Coated Aspirin) cholecalciferol (vitamin D3) 50 50 mcg PO QDAY 07/31/24 09/27/24 mcg (2,000 unit) capsule (Vitamin D3) meloxicam 7.5 mg tablet 15 mg PO DAILY 07/31/24 09/27/24 Allergies Allergy/AdvReac Type Severity Reaction Status Date / Time No Known Drug Allergies Allergy Verified 08/07/24 15:02 Opioid HPI Opioid Management Most Recent Pain and Opioid Data: Last Pain Scale 0 03/25/24, 12:30 Review of Systems ROS Status of ROS 10 or more systems reviewed and unremarkable except as noted in history and below [facility] Medical History (Updated 04/21/25 @ 20:38 by Daniel Sosa MD) Sinus infection (~08/21/24) ?J32.9 - Chronic sinusitis, unspecified (ICD-10) Colonoscopy planned Wellness examination ?Z00.00 - Encounter for general adult medical examination without abnormal findings (ICD-10) Trigger finger, right ?M65.30 - Trigger finger, unspecified finger (ICD-10) Syncope ?R55 - Syncope and collapse (ICD-10) Spondylosis ?M47.9 - Spondylosis, unspecified (ICD-10) Right low back pain ?M54.50 - Low back pain, unspecified (ICD-10) Right elbow pain ?M25.521 - Pain in right elbow (ICD-10) Radiculopathy ?M54.10 - Radiculopathy, site unspecified (ICD-10) Colon polyps ?K63.5 - Polyp of colon (ICD-10) Personal history of adenomatous and serrated colon polyps ?Z86.0101 - Personal history of adenomatous and serrated colon polyps (ICD-10) Pain in lower back ?M54.50 - Low back pain, unspecified (ICD-10) Osteoarthritis of lumbosacral spine ?M47.817 - Spondylosis without myelopathy or radiculopathy, lumbosacral region (ICD-10) Onychomycosis ?B35.1 - Tinea unguium (ICD-10) Neuropathy, lower extremity ?G57.90 - Unspecified mononeuropathy of unspecified lower limb (ICD-10) Ingrowing nail, right great toe ?L60.0 - Ingrowing nail (ICD-10) History of fall ?Z91.81 - History of falling (ICD-10) History of non-ST elevation myocardial infarction (NSTEMI) ?I25.2 - Old myocardial infarction (ICD-10) Gastritis ?K29.70 - Gastritis, unspecified, without bleeding (ICD-10) Foot pain, right ?M79.671 - Pain in right foot (ICD-10) Fluid level behind tympanic membrane of both ears ?H65.93 - Unspecified nonsuppurative otitis media, bilateral (ICD-10) Dupuytrens contracture ?M72.0 - Palmar fascial fibromatosis [Dupuytren] (ICD-10) Cerumen impaction ?H61.20 - Impacted cerumen, unspecified ear (ICD-10) Screening mammogram for breast cancer ?Z12.31 - Encounter for screening mammogram for malignant neoplasm of breast (ICD-10) BMI 20.0-20.9, adult ?Z68.20 - Body mass index [BMI] 20.0-20.9, adult (ICD-10) Acute frontal sinusitis ?J01.10 - Acute frontal sinusitis, unspecified (ICD-10) Acute bronchiolitis ?J21.9 - Acute bronchiolitis, unspecified (ICD-10) Anxiety ?F41.9 - Anxiety disorder, unspecified (ICD-10) Surgical History (Updated 08/07/24 @ 15:08 by Cathryn Oconnell NP) H/O vein stripping ?Z98.890 - Other specified postprocedural states (ICD-10) H/O dilation and curettage ?Z98.890 - Other specified postprocedural states (ICD-10) Hx of cholecystectomy ?Z90.49 - Acquired absence of other specified parts of digestive tract (ICD-10) History of cardiac cath ?Z98.890 - Other specified postprocedural states (ICD-10) History of appendectomy ?Z90.49 - Acquired absence of other specified parts of digestive tract (ICD-10) H/O: hysterectomy ?Z90.710 - Acquired absence of both cervix and uterus (ICD-10) Family History (Updated 07/31/24 @ 08:41 by Lily Barakat) Father Emphysema of lung Mother Schizoaffective disorder Social History (Updated 08/07/24 @ 15:05 by Cathryn Oconnell NP) Within the past year, how often did you have a drink containing alcohol: never Within the past year, how often did you have six or more drinks on one occasion: never Score interpretation: A score less than 3 is consistent with normal alcohol consumption. 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 Highest level of school completed/degree received: high school graduate Little interest or pleasure in doing things: not at all Feeling down, depressed, or hopeless: not at all Exam Constitutional Vital Signs, click to edit/add: Last Vital Signs Temp 98.3 F 04/21/25 18:49 Pulse 72 04/21/25 18:49 Resp 18 04/21/25 18:49 BP 128/58 04/21/25 18:49 Pulse Ox 98 04/21/25 18:49 O2 Del Method Room Air 04/21/25 18:49 Common normals: no apparent distress, average body habitus, oriented x3, no limitations, healthy appearing, alert and well nourished [facility] Common normals: normocephalic and head/scalp atraumatic Eye Common normals: PERRL, EOMs intact bilaterally and conjunctivae normal Respiratory Common normals: normal respiratory effort, no retractions, no use of accessory muscles and clear to auscultation bilaterally Cardio Common normals: regular rate, regular rhythm, S1 normal heart sound and S2 normal heart sound Extremity Other: minor abrasion right dorsal elbow. No swelling and FROM without discomfort right ankle with mod swelling. faint bilat ecchymosis discoloration. No deformity of the ankle. no swelling of the foot. Foot is nontender Neuro Common normals: oriented x3, CN's II-XII intact bilaterally and moves all extremities Psych Appearance: grossly normal Course Vital Signs Vital signs: Vital Signs Temperature 98.3 F 04/21/25 18:49 Pulse Rate 72 04/21/25 18:49 Respiratory Rate 18 04/21/25 18:49 Blood Pressure 128/58 04/21/25 18:49 Pulse Oximetry 98 04/21/25 18:49 Oxygen Delivery Method Room Air 04/21/25 18:49 Temperature 98.3 F 04/21/25 18:49 Pulse Rate 72 04/21/25 18:49 Respiratory Rate 18 04/21/25 18:49 Blood Pressure 128/58 04/21/25 18:49 Pulse Oximetry 98 04/21/25 18:49 Oxygen Delivery Method Room Air 04/21/25 18:49 MDM - Extremity Injury (Lower) MDM Narrative Medical decision making narrative: patient presents after tripping over her dog and falling resulting in trimalleolar fracture of the right ankle [employer]. Ankle splinted and patient also provided crutches. Will have her follow up with orthopedics discussed with Dr Lal Orth[facility] and he will see the patient in the office. CT ordered after discussing with orthopedics which demonstrated displaced trimalleolar fracture and fx anterior aspect of the calcaneus Discharge Plan Discharge Chief Complaint: Extremity Injury, Lower Clinical Impression: Ankle fracture Patient Disposition: Home, Self-Care Prescriptions / Home Meds: No Action oxybutynin chloride 10 mg tablet extended release 24hr 10 mg PO DAILY aspirin [Enteric Coated Aspirin] 81 mg tablet,delayed release (DR/EC) 81 mg PO DAILY meloxicam 7.5 mg tablet 15 mg PO DAILY cholecalciferol (vitamin D3) [Vitamin D3] 50 mcg (2,000 unit) capsule 50 mcg PO QDAY Print Language: Gibraltarian Instructions: Ankle Fracture (ED) Additional Instructions: keep leg elevated. Follow up with orthopedics Dr Lal this upcoming week Referrals: MELODY SHEA [Primary Care Provider, BUSINESS TECHNOLOGY TEACHER] - 1 week Discharge Date/Time: 04/21/25 22:52 Procedures ED Procedure Instructions Procedures Procedures: bimalleolar right ankle fracture. Posterior splint placed using fiber glass material. Patient tolerated the procedure well. N/V post procedure WNL
--- NOTE | 2025-04-21 20:12 | PC.NURSE ---
Right ankle swollen and bruising noted, skin pink and warm and pulses present. Ice pack on.
[2025-04-21] MEDS: ACETAMINOPHEN 500 MG TABLET 1000 MG PO (22:38)
== END 2025-04-21 22:52 | disposition home or self-care (01) ==
PROVIDERS: Emergency Provider Internal Medicine; PCP Nurse Practitioner
DX: S82.851A Displaced trimalleolar fracture of right lower leg, initial encounter for closed fracture (principal); S92.024A Nondisplaced fracture of anterior process of right calcaneus, initial encounter for closed fracture; W18.31XA Fall on same level due to stepping on an object, initial encounter; S50.311A Abrasion of right elbow, initial encounter
CPT/HCPCS: 73610; 73630; 73700; 99284

== ENCOUNTER 2025-05-14 10:11 | Outpatient (OUT) | payer OTHER, SELFPAY ==
--- OUTSIDE RECORDS SUMMARY | 2024-05-25 10:40 | XMS_ITS ---
Author Organization The [facility] [place] Address [address] [place] [address] Care Team Providers Care Kitchenwhere Maker Name Role Phone Millie Molina Primary Care Provider Lizzie Ji Unavailable [phone] Allergies No Known Allergies Results Component Value Reference Range Notes XR Foot RT (3 views) * Reviewed date:09/04/2024 02:45:34 PM Interpretation: Performing Lab: Notes/Report: REASON FOR VISIT Referral rt foot pain Medications Medication SIG (Take, Route, Frequency, Duration) Notes Start Date End Date Status Vitamin D3 25 MCG (1000 UT) 2 capsule Or ally twice daily Active Meloxicam 7.5 MG TAKE 1 TABLET BY HAMMAD TH ONCE DAILY Oral for 30 Days Active Escitalopram Oxalate 5 MG TAKE 1 TABLET BY MOUTH ONCE DAILY Oral for 90 Days Active Social History Tobacco Use: Social History Observation Description Date Details (start date - stop date) Never Smoker NA - NA Tobacco Use/Smoking Question Answer Notes Patient is a nonsmoker Problems Problem Type SNOMED Code ICD Code Onset Dates Problem Status W/U Status Risk Notes Problem [id number] Hallux rigidus, right foot (M20.21) Active confirmed Vital Signs Temperature 98.2 degrees Fahrenheit 05/25/20 24 Heart Rate 72 /min 05/25/2024 Respiratory Rate 18 /min 05/25/2024 Height 62 in 05/25/2024 Weight 120 lbs 05/25/2024 BMI 21.95 kg/m2 05/25/2024 Oximetry 97 % 05/25/2024 Encounters Encounter Location Date Provider Diagnosis [facility] (PODIATRY) [address] [place] [address] [place] [address] 05/25/2024 Lizzie Cornejo Other enthesopathies, not elsewhere classified M77.8 ; Hallux rigidus, right foot M20.21 and Right foot pain M79.671 Assessments Encounter Date Diagnosis (ICD Code) Assessment Notes Treatment Notes Treatment Clinical Notes Section Notes 05/25/2024 Other enthesopathies, not elsewhere classified (ICD-10 - M77.8) (Capsuliutis right 2nd MPJ) The patient is a 68-year-old female who presents for evaluation of nontraumatic pain in the right foot. History, imaging, and physical examination are consistent with capsulitis of the right second MPJ secondary to hallux rigidus. I recommend stiff soled shoes. NSAIDs were prescribed. The patient was educated on calf stretches to offload the forefoot. She was also given instructions on strapping the second toe. Follow-up in 3 to 4 weeks, sooner if any issues arise. No additional x-rays are necessary at that time. 05/25/2024 Hallux rigidus, right foot (ICD-10 - M20.21) 05/25/2024 Right foot pain (ICD-10 - M79.671) Plan Of Treatment Treatment Notes Assessment Notes Other enthesopathies, not el sewhere classified (Capsuliutis right 2nd MPJ) The patient is a 68-year-old female who presents for evaluation of nontraumatic pain in the right foot. History, imaging, and physical examination are consistent with capsulitis of the right second MPJ secondary to hallux rigidus. I recommend stiff soled shoes. NSAIDs were prescribed. The patient was educated on calf stretches to offload the forefoot. She was also given instructions on strapping the second toe. Follow-up in 3 to 4 weeks, sooner if any issues arise. No additional x-rays are necessary at that time. Next Appt Details Follow Up: 4 Weeks, Reason: Progress Notes * Wiley DESOUZAB:1955 (68 yo F)Acc No.[id number]:05/25/2024 Follow Up Patient: Imelda JOHNSTONomi Provider: Mirtha Cornejo PA-C :1955 A ge:68 Y S ex:Female Date:05/25/2024 Address:[address] [place] [address] , [id number] Pcp:JAH Adam Check In:02:39 PM ESTCheck O ut:03:23 PM EST Subjective: * Chief Complaints: * R eferral rt foot pain * HPI: G eneral: Referral from PCP for right foot pain. Patient states pain is located across the ball of right foot. Pain started 2 months ago, without injury. Rates pain at it's worst 5/10, achy pain. PCP ordered meloxicam, which has been helpful. * ROS: G eneral/Constitutional: Chills d enies. F ever d enies. W eight gain?denies. W eight loss d enies. S kin: Skin Ulcers d enies. S kin lesion(s) d enies. ? C ardiovascular: Difficulty breathing on exertion d enies. L eg cramps?denies. E kenny d enies. C hest pain d enies. R espiratory: Difficulty breathing d enies. D yspnea d enies.?Cough d enies. G astrointestinal: Diarrhea d enies. N ausea d enies. V omiting?denies. M usculoskeletal: Bone/Joint Symptoms d enies. C horacio Pain d enies.?Leg cramps d enies. N eurologic: Numbness d enies. T ingling d enies . G ait abnormality d enies. ? H ematology: Anemia D enies. E asy bruising d enies. ? A ll Other Systems: Review of Systems (ROS) S ee HPI for details,All others negative except those mentioned in HPI. * Active Problem List M79.671 Right foot pain Modified On:05/25/2024W/U Status:confirmed M20.21 Hallux rigidus, righ t foot Modified On:05/25/2024W/U Status:confirmed * Medical History: * Surgical History: h ysterectomy 2001appendectomy 2015cholecystectomy 2011d&c 1999varicose veins 2012 * Hospitalization/Major Diagno stic Procedure: s ee above * Family History: N on-Contributory. * Social History: T obacco Use: T obacco Use/Smoking P atient is a n onsmoker * Medications: T akingEscitalopram Oxalate 5 MG Tablet TAKE 1 TABLET BY MOUTH ONCE DAILY Oral Meloxicam 7.5 MG Tablet TAKE 1 TABLET BY MOUTH ONCE DAILY Oral Vitamin D3 25 MCG (1000 UT) Capsule 2 capsule Orally twice daily Medication List reviewed and reconciled with the patientTaking Escitalopram Oxalate 5 MG Tablet TAKE 1 TABLET BY MOUTH ONCE DAILY Oral Taking Meloxicam 7.5 MG Tablet TAKE 1 TABLET BY MOUTH ONCE DAILY Oral Taking Vitamin D3 25 MCG (1000 UT) Capsule 2 capsule Orally twice daily Medication List reviewed and reconciled with the patient * Allergies: N .K.D.A.no[Allergies Verified] Objective: * Vitals: W t:120lbs, Ht: 62 in, Temp:98.2F, HR:72/min, RR:18/min, BMI:21.95Index, Pain scale:51-10, Oxygen sat %:97%, Ht-cm: 157.48 cm, Wt-k.43 kg. * Examination: P odiatry Examination: SKIN: s kin intact, n o sign of infection. MUSCULOSKELETAL: N o gross deformity of the right foot Pain with palpation of the second metatarsal head Pain with dorsal drawer of the second toe Stiffness noted with passive range of motion of the first MPJ. NEUROLOGICAL: L ight touch sensation is intact in all nerve distributions, Negative Tinel sign. VASCULAR: P alpable pedal pulses bilaterally, No swelling, No calf pain on squeeze. X -ray 3 view foot obtained in the office today and reviewed: No evidence of acute trauma or stress fracture. Advanced arthritic changes noted of the first MPJ with joint space narrowing and dorsal bone spur formation. Assessment: * Assessment: 1. O ther enthesopathies, not elsewhere classified - M77.8 (Primary) 2 . H allux rigidus, right foot - M20.21 3 . R ight foot pain - M79.671 Plan: * Treatment: 2. R ight foot pain I maging: XR Foot RT (3 views) * * Procedure Codes: * Follow Up: 4 Weeks * * Sign off status: Completed Visit Status: C HK (Check Out) true * Provider: Mirtha Cornejo PA-C Date: 0 05/25/2024 Generated for Bailey padron/Aki/Luz Marinasmitting on: 0 05/14/2025 10:13 AM EDT History and Physical Notes * HPI (History of Present Illness) Category Sub-Category Detail Notes Category Not es General Referral from P CP for right foot pain. Patient states pain is located across the ball of right foot. Pain started 2 months ago, without injury. Rates pain at it's worst 5/10, achy pain. PCP ordered meloxicam, which has been helpful. Examination Category Sub-Category Detail Notes Category Not es Podiatry Examination SKIN: skin intact, no sign of infection X-ray 3 view foot obtained in the office today and reviewed: No evidence of acute trauma or stress fracture. Advanced arthritic changes noted of the first MPJ with joint space narrowing and dorsal bone spur formation MUSCULOSKELETAL: No gross deformity o f the right foot Pain with palpation of the second metatarsal head Pain with dorsal drawer of the second toe Stiffness noted with passive range of motion of the first MPJ NEUROLOGICAL: Light touch sensatio n is intact in all nerve distributions, Negative Tinel sign VASCULAR: Palpable pedal pulse s bilaterally, No swelling, No calf pain on squeeze
--- OUTSIDE RECORDS SUMMARY | 2024-06-22 10:40 | XMS_ITS ---
Author Organization [facility] [place] Address [address] [place] [address] Care Team Providers Care Instructor Adjunct Surgical Technician Name Role Phone Millie Molina Primary Care Provider Lizzie Ji Unavailable [phone] Allergies No Known Allergies REASON FOR VISIT 4 week f/u Medications Medication SIG (Take, Route, Frequency, Duration) Notes Start Date End Date Status Aspirin 81 81 MG 1 tablet Orally Once a day 06/22/2024 Active oxyBUTYnin Chloride ER 10 MG 1 tablet Orally Once a day 06/22/2024 Active Escitalopram Oxalate 10 MG TAKE 1 TABLET BY MOUTH ONCE DAILY Oral for 90 days Active Meloxicam 15 MG TAKE 1 TABLET BY HAMMAD TH ONCE DAILY Oral for 30 days Active Vitamin D3 25 MCG (1000 UT) 2 capsule Or ally twice daily Active Social History Tobacco Use: Social History Observation Description Date Details (start date - stop date) Never Smoker NA - NA Tobacco Use/Smoking Question Answer Notes Patient is a nonsmoker Vital Signs Temperature 98 degrees Fahrenheit 06/22/2024 Heart Rate 68 /min 06/22/2024 Respiratory Rate 16 /min 06/22/2024 Height 62 in 06/22/2024 Weight 120 lbs 06/22/2024 BMI 21.95 kg/m2 06/22/2024 Oximetry 98 % 06/22/2024 Encounters Encounter Location Date Provider Diagnosis [facility] (PODIATRY) [address] [place] [address] [place] [address] 06/22/2024 Lizzie Cornejo Other enthesopathies, 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 The patient notes significant improvement in symptoms since switching to stiff soled shoes. She is no longer requiring toe strapping or NSAIDs. Follow-up as needed. 06/22/2024 Hallux rigidus, right foot (ICD-10 - M20.21) 06/22/2024 Pain in right toe(s) (ICD-10 - M79.674) Plan Of Treatment Treatment Notes Assessment Notes Other enthesopathies, not el sewhere classified The patient is a 68-year-old female who presents for reevaluation of capsulitis of the second metatarsal phalangeal joint secondary to hallux rigidus and hammertoe contracture. The patient notes significant improvement in symptoms since switching to stiff soled shoes. She is no longer requiring toe strapping or NSAIDs. Follow-up as needed. Next Appt Details Follow Up: prn, Reason: Progress Notes * Franki DESOUZAiDOB:1955 (68 yo F)Acc No.[id number]:06/22/2024 Follow Up Patient: [place] Provider: Mirtha Cornejo PA-C :1955 A ge:68 Y S ex:Female Date:06/22/2024 Address:[address] [place], [place] [id number] Pcp:JAH Adam Check In:02:34 PM ESTCheck O ut:03:43 PM EST Subjective: * Chief Complaints: * 4 week f/u * HPI: G eneral: Follow up right nontraumatic foot pain. States he got a new pair of stiff soled shoes and it has helped her. States she hasn't been doing home stretches due to was layed up for a little bit after a fall and injured her back. Denies pain today. * ROS: G eneral/Constitutional: Chills d enies. [...] Medical History: * Surgical History: h ysterectomy 2002appendectomy 2015cholecystectomy 2012d&c 1999varicose veins 2013 * Hospitalization/Major Diagno stic Procedure: s ee above * Family History: N o Family History documented.. * Social History: T obacco Use: T obacco Use/Smoking P atient is a n onsmoker * Medications: T akingAspirin 81(Aspirin) 81 MG Tablet Delayed Release 1 tablet Orally Once a day Escitalopram Oxalate 10 MG Tablet TAKE 1 TABLET BY MOUTH ONCE DAILY Oral Meloxicam 15 MG Tablet TAKE 1 TABLET BY MOUTH ONCE DAILY Oral oxyBUTYnin Chloride ER 10 MG Tablet Extended Release 24 Hour 1 tablet Orally Once a day Vitamin D3 25 MCG (1000 UT) Capsule 2 capsule Orally twice daily Medication List reviewed and reconciled with the patientTaking Aspirin 81(Aspirin) 81 MG Tablet Delayed Release 1 tablet Orally Once a day Taking Escitalopram Oxalate 10 MG Tablet TAKE 1 TABLET BY MOUTH ONCE DAILY Oral Taking Meloxicam 15 MG Tablet TAKE 1 TABLET BY MOUTH ONCE DAILY Oral Taking oxyBUTYnin Chloride ER 10 MG Tablet Extended Release 24 Hour 1 tablet Orally Once a day Taking Vitamin D3 25 MCG (1000 UT) Capsule 2 capsule Orally twice daily Medication List reviewed and reconciled with the patient * Allergies: N .K.D.A.no[Allergies Verified] Objective: * Vitals: W t:120lbs, Ht: 62 in, Temp:98F, HR:68/min, RR:16/min, BMI:21.95Index, Pain scale:01-10, Oxygen sat %:98%, Ht-cm: 157.48 cm, Wt-k.43 kg. * Examination: P odiatry Examination: SKIN: s kin intact, n o sign of infection. MUSCULOSKELETAL: N o pain on palpation, Range of motion of ankle and foot is within normal limits, Muscle strength is 5/5 in all planes. NEUROLOGICAL: L ight touch sensation is intact in all nerve distributions, Negative Tinel sign. VASCULAR: P alpable pedal pulses bilaterally, No swelling, No calf pain on squeeze. Assessment: * Assessment: 1. O ther enthesopathies, not elsewhere classified - M77.8 (Primary) 2 . H allux rigidus, right foot - M20.21 3 . P ain in right toe(s) - M79.674 Plan: * Treatment: * Procedure Codes: * Follow Up: p rn * * Sign off status: Completed Visit Status: C HK (Check Out) true * Provider: Mirtha Cornejo PA-C Date: 1 Generated for Bailey padron/Aki/Reeditting on: 0 05/14/2025 10:13 AM EDT History and Physical Notes * HPI (History of Present Illness) Category Sub-Category Detail Notes Category Not es General Follow up right nontraumatic foot pain. States he got a new pair of stiff soled shoes and it has helped her. States she hasn't been doing home stretches due to was layed up for a little bit after a fall and injured her back. Denies pain today Examination Category Sub-Category Detail Notes Category Not es Podiatry Examination SKIN: skin intact, no sign of infection MUSCULOSKELETAL: No pain on palpation , Range of motion of ankle and foot is within normal limits, Muscle strength is 5/5 in all planes NEUROLOGICAL: Light touch sensatio n is intact in all nerve distributions, Negative Tinel sign VASCULAR: Palpable pedal pulse s bilaterally, No swelling, No calf pain on squeeze
--- NOTE | 2025-05-14 | XR_ITS ---
The [address] [address] Patient Name: JESS BACON MRN: [id number] date: 1955 Sex: F Assigned Patient Location: [facility] Current Patient Location: [facility] Accession/Order Number: [id number] Exam Date: 05/14/2025 10:35 Report Date: 05/14/2025 10:42 At the request of: WALDO PICKARD DO Procedure: XR ankle RT min 3V RIGHT ANKLE - 3 views CLINICAL DATA: Follow-up trimalleolar fracture. COMPARISON: CT AND PLAIN FILMS 04/21/2025 AP, lateral and oblique views were obtained. A new lateral plate and multiple screws is seen along the distal fibula. There are 2 cannulated screws at the medial malleolus. A syndesmosis screw is also seen. The underlying fractures are in satisfactory alignment. There is no new fracture or dislocation. The talar dome is intact. Calcaneal spurs are seen. There is mild residual soft tissue swelling. XR/XR ankle RT min 3V IMPRESSION: MULTIPLE ANKLE FRACTURES STATUS POST INTERNAL FIXATION Impression dictated by: Tiffanie Wilson M.D. 05/14/2025 10:42 AM Dictation Location: [place] [address] Electronically authenticated by: [id number] Y Date: 05/14/2025 10:42
--- OUTSIDE RECORDS SUMMARY | 2025-05-14 10:13 | XMS_ITS | Clinical Summary ---
Author Organization [facility] Address [address] [place] [address] Care Team Providers Care Assistant Quality Manager Name Role Phone Millie Gonzalez ACROBATIC DANCER-C Primary Care Provider [phone] Allergies No known active allergies Medications oxybutynin XL (Ditropan-XL) 10 mg 24 hr tablet Take 10 mg by mouth in the morning. 02/10/2024 Active cholecalciferol , vitamin D3, (Vitamin D3) 50 mcg (2,000 unit) capsule Take 3 capsules by mouth in the morning. Active escitalopram (Lexapro) 5 mg tablet Take 5 mg by mouth in the morning. 01/31/2025 Active aspirin 81 mg EC tablet Take 81 mg by mouth 1 (one) time. 06/22/2024 Active meloxicam (Mobic) 15 mg tablet Take 15 mg by mouth in the morning. Active omeprazole (PriLOSEC) [address] capsule Take 40 mg by mouth before breakfast. 01/31/2025 01/27/20 26 Active Active Problems Problem Noted Date Diagnosed Date Acute bronchitis 04/09/2025 Acute frontal sinusitis 04/09/2025 Breast cancer screening by mammogram 04/09/2025 Screening for hyperlipidemia 04/09/2025 Cerumen impaction 04/09/2025 Dupuytrens contracture 04/09/2025 Fluid level behind tympanic membrane of both ear s 04/09/2025 Hallux rigidus, right foot 04/09/2025 History of colonic polyps 04/09/2025 History of non-ST elevation myocardial infarctio n (NSTEMI) 04/09/2025 Overview (04/09/2025): Noted in [facility] page 4, added per outpatient CDI policy. History of recent fall 04/09/2025 Hospital discharge follow-up 04/09/2025 Ingrown right big toenail 04/09/2025 Low back pain 04/09/2025 Lower extremity neuropathy 04/09/2025 Radiculopathy 04/09/2025 Lump of right breast 04/09/2025 Onychomycosis 04/09/2025 Osteoarthritis of lumbosacral spine 04/09/2025 Pain in right foot 04/09/2025 Right elbow pain 04/09/2025 Sigmoid diverticulosis 04/09/2025 Sinusitis 04/09/2025 Sore throat 04/09/2025 Spondylosis 04/09/2025 Syncope 04/09/2025 Vitamin D deficiency 04/09/2025 NSTEMI (non-ST elevated myocardial infarction) 0 03/25/2024 Gastroenteritis 03/25/2024 Anxiety 03/25/2024 Abnormal stress test 03/25/2024 Encounters Date Type Department Care Team Description 04/09/2025 11:00 AM EDT Office Visit [facility] [place] [address] [place] [address] Farhan Klein MD Myocardial bridge (Primary Dx); Pure hypercholesterolemia from Last 3 Months Family History Relation Name Status Comments Father Mother Social History Tobacco Use Types Packs/Day Years Used Date Smoking Tobacco: Never Smokeless Tobacco: Never Alcohol Use Standard Drinks/Week Comments Yes 0 (1 standard drink = 0.6 oz pur e alcohol) occasional [facility] Utilities Answer Date Recorded In the past 12 months has e electric, gas, oil, or water company threatened to shut off services in your home? No 03/25/2024 Humiliation, Afraid, Rape, and Kick questionnair e Answer Date Recorded Within the last year, have y ou been afraid of your partner or ex-partner? No 03/25/2024 Emotionally Abused Not on file 03/25/2024 Physically Abused Not on file 03/25/2024 Sexually Abused Not on file 03/25/2024 Overall Financial Resource Strain (CARDIA) Answe r Date Recorded How hard is it for you to pa y for the very basics like food, housing, medical care, and heating? Not hard at all 03/25/2024 Transportation Answer Date Recorded In the past 12 months, has l ack of transportation kept you from medical appointments or from getting medications? No 03/25/2024 Lack of Transportation (Non-Medical) Not on file 03/25/2024 Housing Stability Vital Sign Answer Migel e Recorded Unable to Pay for Housing in the Last Year Not o n file 03/25/2024 Number of Places Lived in the Last Year Not on f ile 03/25/2024 In the last 12 months, was t here a time when you did not have a steady place to sleep or slept in a alf (including now)? No 03/25/2024 Hunger Vital Sign Answer Date Recorded Within the past 12 months, y ou worried that your food would run out before you got the money to buy more. Never true 03/25/20 24 Ran Out of Food in the Last Year Not on file 03/25/2024 Comments Unknown Sex and Gender Information Value Date Recorded Sex Assigned at Female 04/04/2025 4:29 PM EDT Legal Sex Female 10:14 PM EDT Gender Identity Female 04/04/2025 4:29 PM EDT Sexual Orientation Heterosexual or Straight 03/08 4:29 PM EDT Last Filed Vital Signs Vital Sign Reading Time Taken Comments Blood Pressure 127/64 04/09/2025 11:18 AM EDT Pulse 70 04/09/2025 11:18 AM EDT Temperature 35.7 C (96.3 F) 03/30/2024 12:10 PM EDT Respiratory Rate 16 04/21/2024 2:47 PM EDT Oxygen Saturation 98% 04/09/2025 11:18 AM EDT Inhaled Oxygen Concentration - - Weight 53.1 kg (117 lb) 04/09/2025 11:18 AM EDT Height 154.9 cm (5' 1 ) 04/09/2025 11:18 AM EDT Body Mass Index 22.11 04/09/2025 11:18 AM EDT Plan of Treatment Health Maintenance Due Date Last Done Comments CT Colonography 1955 FIT-DNA 1955 FIT 1955 FOBT 1955 Medicare Annual Wellness (AWV) 1955 Sigmoidoscopy 1955 Depression Screening 1967 Pneumococcal Vaccine: 50+ Ye ars (1 of 2 - PCV) 12/17/1974 Adult Tetanus 12/17/1977 Mammogram 1995 Zoster Vaccines (1 of 2) 12/17/2005 Fall Risk Screening 12/17/2020 COVID-19 Vaccine (1 - 2023-2 5 season) 2025 Influenza Vaccine (#1) 2025 Colonoscopy 09/27/2034 09/27/2024 Colorectal Cancer Screening 09/27/2034 HIB Vaccines Aged Out No longer eligi ble based on patient's age to complete this topic HPV Vaccines Aged Out No longer eligi ble based on patient's age to complete this topic IPV Vaccines Aged Out No longer eligi ble based on patient's age to complete this topic Meningococcal B Vaccine Aged Out No l onger eligible based on patient's age to complete this topic Meningococcal Vaccine Aged Out No reta lewis eligible based on patient's age to complete this topic Rotavirus Vaccines Aged Out No longer eligible based on patient's age to complete this topic Insurance [employer] Advance Directives * Full Code (Latest Code Status on File) Date Activated Date Inactivated Comments 03/25/2024 10:58 PM 03/30/2024 2:19 PM Care Teams Assistant Quality Manager Relationship Specialty Start Date End Date Millie Gonzalez FNP-C [address] [place] [address] PCP - General Nurse Practitioner 03/26/24
--- OUTSIDE RECORDS SUMMARY | 2025-05-14 10:13 | XMS_ITS | Encounter Summary ---
Author Organization [facility] Address [address] [place] [address] Care Team Providers Care Circus Hand Name Role Phone Millie Gonzalez HAMMER FITTER Unavailable Encounter Details Date Type Department Care Team (Late st Contact Info) Description 02/04/2023 Abstract NOMJulianna Berg ADIS [address] [facility] [address] [place] [address] Roel Ludwig MD [address] [facility] [address] [place] [address] Social History Tobacco Use Types Packs/Day Years Used Date Smoking Tobacco: Never Assessed Comments Unknown Sex and Gender Information Value Date Recorded Sex Assigned at Not on file Legal Sex Female 6:45 PM EDT Gender Identity Not on file Sexual Orientation Not on file documented as of this encounter Plan of Treatment Not on file documented as of this encounter Visit Diagnoses Not on filedocumented in this encounter Care Teams Circus Hand Relationship Specialty Start Date End Date Millie Gonzalez NP [address] [place] [id number] Referring Physician Family Medicine 12/31/23 documented as of this encounter
--- OUTSIDE RECORDS SUMMARY | 2025-05-14 10:14 | XMS_ITS | Clinical Summary ---
Author Organization [facility] tem Address [id number] [address] [place] [address] Care Team Providers Care Contract Loader Name Role Phone Millie Gonzalez BOILER CLEANER-TRAY LINE WORKER Primary Care Provider [phone] Allergies No known active allergies Medications cholecalciferol, vitamin D3, 400 units tablet Take 400 Units by mouth daily. Active Active Problems No known active problems Family History Medical History Relation Name Comments Emphysema Father Hypertension Mother Relation Name Status Comments Father Mother Social History Tobacco Use Types Packs/Day Years Used Date Smoking Tobacco: Never Smokeless Tobacco: Never Tobacco Cessation:Counseling Given: Not Answered Alcohol Use Standard Drinks/Week Comments Never 0 (1 standard drink = 0.6 oz pur e alcohol) AUDIT-C Answer Date Recorded Q1: How often do you have a drink containing alc ohol? Never 03/12/2020 Average Number of Drinks Not on file 020 Frequency of Binge Drinking Not on file 03/2020 Childcare Answer Date Recorded Childcare Unknown 02/15/2019 Employment Answer Date Recorded Employment Unknown 02/15/2019 Hunger Screening Answer Date Recorded Within the past 12 months we worried whether our food would run out before we got money to buy more. Never True 03/19/2023 Within the past 12 months th e food we bought just didn't last and we didn't have money to get more. Never True 03/19/2023 Purpose - Life Answer Date Recorded Purpose and direction in life Unknown Comments No Sex and Gender Information Value Date Recorded Sex Assigned at Not on file Legal Sex Female 11:55 AM EDT Gender Identity Not on file Sexual Orientation Not on file Last Filed Vital Signs Vital Sign Reading Time Taken Comments Blood Pressure 118/68 03/19/2023 6:27 PM EDT Pulse 62 03/19/2023 6:27 PM EDT Temperature 36.8 C (98.3 F) 03/19/2023 2:08 PM EDT Respiratory Rate 16 03/19/2023 6:27 PM EDT Oxygen Saturation 99% 03/19/2023 6:27 PM EDT Inhaled Oxygen Concentration - - Weight 54.4 kg (120 lb) 03/19/2023 2:08 PM EDT Height 152.4 cm (5') 03/19/2023 2:08 PM EDT Body Mass Index 23.44 03/19/2023 2:08 PM EDT Plan of Treatment Health Maintenance Due Date Last Done Comments Depression Screening 1967 Tobacco Screening 1967 DTaP,Tdap and Td Vaccines (1 - Tdap) 12/17/1974 Zoster (Shingles) Vaccine (1 of 2) 12/17/2005 Fall Risk Screening 12/17/2020 Adult BMI Screening 03/19/2024 03/19/2023 Influenza Vaccine 05/07/2025 Medical Devices Not on file Insurance MEDICARE Care Teams Contract Loader Relationship Specialty Start Date End Date Millie Gonzalez, CARLOS-TRAY LINE WORKER [address] [place] [address] PCP - General Nurse Practitioner 03/19/23
--- OUTSIDE RECORDS SUMMARY | 2025-05-14 10:14 | XMS_ITS | Clinical Summary ---
Author Organization [facility] Address [address] [place] [address] Care Team Providers Care Small Stock Facer Name Role Phone Millie Gonzalez GUEST ROOM INSPECTOR Unavailable Allergies Active Allergy Reactions Criticality Noted Date Comments Morphine GI intolerance 12/31/2023 Medications escitalopram (Lexapro) 5 MG tablet TAKE 1 TABLET BY MOUTH ONCE DAILY Oral for 90 Days 05/25/2023 Active cholecalciferol (Vitamin D-3) 25 MCG (1000 UT) capsule 2 capsules Active meloxicam (Mobic) 7.5 MG tablet TAKE 1 TABLET BY MOUTH ONCE DAILY Oral for 30 Days Active Active Problems No known active problems Social History Tobacco Use Types Packs/Day Years Used Date Smoking Tobacco: Never Smokeless Tobacco: Never Tobacco Cessation:Counseling Given: Not Answered Alcohol Use Standard Drinks/Week Comments Never 0 (1 standard drink = 0.6 oz pur e alcohol) Comments Unknown Sex and Gender Information Value Date Recorded Sex Assigned at Not on file Legal Sex Female 6:45 PM EDT Gender Identity Not on file Sexual Orientation Not on file Last Filed Vital Signs Vital Sign Reading Time Taken Comments Blood Pressure 120/80 04/18/2019 12:00 PM EDT Pulse - - Temperature 36.4 C (97.6 F) 12/31/2023 10:55 AM EDT Respiratory Rate - - Oxygen Saturation - - Inhaled Oxygen Concentration - - Weight 56.2 kg (124 lb) 01/20/2024 3:10 PM EDT Height 154.9 cm (5' 1 ) 01/20/2024 3:10 PM EDT Body Mass Index 23.43 01/20/2024 3:10 PM EDT Plan of Treatment Not on file Insurance [facility] Care Teams Small Stock Facer Relationship Specialty Start Date End Date Millie Gonzalez NP [address] [place] [phone] Referring Physician Family Medicine 12/31/23
--- OUTSIDE RECORDS SUMMARY | 2025-05-14 10:18 | XMS_ITS | CCD ---
Author Organization [facility] CliniSyny Care Team Providers Care Keno Clerk Name Role Phone DR GINA CULVER Primary Care Unavailable PAY, DR ROBLES Admitting Unavailable PAY, DR ROBLES Attending Unavailable IVETTE RICHMOND Consulting Unavailable Carlos, Millie Gallagher Primary Care Physician LAUREANO AMARAL Referring Unavailable MUNIR, LAUREANO Jennings Attending Unavailable LAUREANO AMARAL Referring Unavailable BROWN, LARISSA Poole Attending Unavailable BROWN, LARISSA Poole Referring Unavailable Malcom, CARLOS Sykes Attending Provider [phone] MD Luisito Roth Primary Care Provider AUGUST HAYES Attending Unavailable ALGHOTHANIDAVID Attending Unavailable Carlos, Millie Gallagher Admitting Unavailable Carlos, Millie Gallagher Attending Unavailable INGRIDLIZBETH Attending Unavailable Carlos, Millie L Attending Unavailable Carlos, Millie L Attending Unavailable Carlos, Millie L Attending Unavailable Carlos, Millie L Attending Unavailable Carlos, Millie L Attending Unavailable Carlos, Millie Gallagher Admitting Unavailable NILL, Addy Koch Attending Unavailable NILL, Addy Koch Attending Unavailable Carlos, Millie L Attending Unavailable Carlos, Millie L Attending Unavailable Carlos, Millie L Attending Unavailable Carlos, Millie L Attending Unavailable Carlos, Millie L Attending Unavailable Carlos, Millie L Attending Unavailable Carlos, Millie L Attending Unavailable Carlos, Millie L Attending Unavailable Carlos, Millie L Attending Unavailable Carlos, Millie L Attending Unavailable Gonzalez MACIAS, Luisito Berg Primary Care Provider [phone] Franco Bradley DO Attending Provider [phone] Carlos LENS INSERTER-CMillie Primary Care Provider Franco Bradley DO Other Provider Franco Bradley Admitting Unavailable Carlos, Millie Ynes Primary Care Unavailable Franco Bradley Attending Unavailable Millie Gonzalez Primary Care Unavailable Franco Bradley Attending Unavailable Franco Bradley Admitting Unavailable Zoila العراقي Attending Unavailable Zoila العراقي Admitting Unavailable Luisito Roth Primary Care Unavailable Allergies Allergy Classification Reported Allergen(s) Allergy Type Date of Onset Reaction(s) Facility (2 sources) No Known Medication Allergies; Translations: [No Known Medication Allergies] Propensity to adverse reactions (disorder) [facility] Repository Medications Current Medications Medication Drug Class(es) Dates Sig (Normalized) Sig (Original) aspirin 81 mg delayed release oral tablet (5 sources) Platelet Aggregation Inhibitor, Nonsteroidal Anti-inflammatory Drug Start: 05-27-2024 take 1 tablet by mouth once daily Aspirin 81 mg tablet,delayed release (DR/EC) Active 81 MG PO Daily May 27, 2024 12:00am Complies with drug therapy Start: 03-31-2024 take 81 mg by mouth once daily aspirin 81 mg, Oral, Daily, Refills(s) 0 Start Date: 03/31/24 Status: Ordered azithromycin 500 mg oral tablet (1 source) Macrolide Antimicrobial Start: 10-29-2023 End: 11-03-2023 take 1 tablet by mouth once daily Zithromax 500 mg oral tablet 500 mg = 1 tab(s), Oral, Daily, X 5 day(s), # 5 tab(s), Refills(s) 0, Pharmacy: [id number], 158, cm, 10/29/23 13:27:00 EST, Height/Length Dosing, 53, kg, 10/29/23 13:27:00 EST, Weight Dosing Start Date: 10/29/23 Stop Date: 11/03/23 Status: Ordered Cholecalciferol (4 sources) Vitamin D Start: 01-20-2021 take 1 capsule by mouth once daily Cholecalciferol (Vitamin D3) 100 mcg (4,000 unit) Capsule Active 100 MCG PO Daily January 20, 2021 12:00am Complies with drug therapy Start: 01-20-2021 take 1 capsule by [facility] once daily Start: 01-20-2021 take 100 ug by mouth once daily Cholecalciferol (Vitamin D3) Active 100 MCG PO Daily January 20, 2021 12:00am Compression stockings (2 sources) Start: 06-30-2023 Compression stockings Compression stockings, See Instructions, 1 EA, 0, wear stocking when on your feet > 8 hours per day, Supply Start Date: 06/30/23 Status: Ordered escitalopram 5 mg oral tablet (13 sources) Serotonin Reuptake Inhibitor Start: 04-23-2025 take 1 tablet by mouth once daily in the morning Escitalopram Oxalate 5 mg tablet Active 5 MG PO Every morning April 23, 2025 12:00am Complies with drug therapy Start: 07-12-2024 take 1 tablet by phillip th once daily escitalopram 5 mg oral tablet See Instructions, Take 1 tablet by mouth once daily, # 90 tab(s), Refills(s) 0, Pharmacy: [id number], 158, cm, 06/06/24 14:02:00 EDT, Height/Length Dosing, 51.4, kg, 06/06/24 14:02:00 EDT, Weight Dosing Start Date: 07/12/24 Status: Ordered Start: 10-25-2023 End: 02-01-2024 Escitalopram Oxalate Discont inued MG PO October 25, 2023 1:00am February 01, 2024 9:37am Start: 05-25-2023 End: 05-27-2024 take 1 tablet by mouth once daily Escitalopram Oxalate 5 mg tablet Discontinued 5 MG PO Daily February 01, 2024 9:37am May 27, 2024 2:07pm Knee Scooter (1 source) Start: 04-26-2025 Knee Scooter Active 0 .Route .MEDSUPPLY 1 April 26, 2025 12:00am As directed meloxicam 15 mg oral tablet (5 sources) Nonsteroidal Anti-inflammatory Drug Start: 05-27-2024 take 1 tablet by mouth once daily in the morning Meloxicam 15 mg tablet Active 15 MG PO Every morning May 27, 2024 12:00am Complies with drug therapy Start: 05-27-2024 Meloxicam Acti ve MG PO May 27, 2024 12:00am Lauznpqkgqbq-Axie-Kevxj Acid (Centrum) 18-400 mg-mcg tablet (2 sources) Start: 04-24-2025 take 1 tablet by mouth once daily Yaafuvnphmmf-Nixc-Exake Acid (Centrum) 18-400 mg-mcg tablet Active 1 TAB PO Daily April 24, 2025 12:00am Complies with drug therapy Start: 04-24-2025 take 1 tablet by mouth once da cyrus omeprazole 40 mg delayed release oral capsule (3 sources) Proton Pump Inhibitor Start: 04-23-2025 take 1 capsule by mouth once daily in the morning Omeprazole 40 mg capsule,delayed release(DR/EC) Active 40 MG PO Every morning April 23, 2025 12:00am Complies with drug therapy 24 hr oxybutynin chloride 10 mg extended release oral tablet (5 sources) Cholinergic Muscarinic Antagonist Start: 05-27-2024 take 1 tablet by mouth every twenty-four hours Start: 05-27-2024 Oxybutynin Chl oride Active MG PO May 27, 2024 12:00am Start: 04-17-2024 take 1 tablet by phillip th once daily in the morning Oxybutynin Chloride 10 mg tablet extended release 24hr Active 10 MG PO Every morning May 27, 2024 12:00am Complies with drug therapy Vitamin D3 1999 intl units oral Tab (2 sources) Start: 11-30-2022 take 1 tablet by mouth once daily Vitamin D3 2000 intl units oral Tab 50 mcg, Oral, Daily, tab(s), Refills(s) 0 Start Date: 11/30/22 Status: Ordered Completed/Discontinued Medications Medication Drug Class(es) Dates Sig (Normalized) Sig (Original) amoxicillin 500 mg oral capsule (4 sources) Penicillin-class Antibacterial Start: 02-01-2024 End: 05-27-2024 take 1 capsule by mouth twice daily Amoxicillin 500 mg capsule Discontinued 500 MG PO Twice daily 25 06February 01, 2024 12:00am May 27, 2024 2:06pm benzonatate 200 mg oral capsule (4 sources) Non-narcotic Antitussive Start: 10-25-2023 End: 02-01-2024 Benzonatate 200 mg capsule Discontinued 200 MG PO 2-3 TIMES PER DAY as needed for cough October 25, 2023 1:00am February 01, 2024 9:33am cephalexin 500 mg oral capsule (4 sources) Cephalosporin Antibacterial Start: 10-25-2023 End: 02-01-2024 Cephalexin 500 mg capsule Discontinued MG PO October 25, 2023 1:00am February 01, 2024 9:33am Start: 10-25-2023 End: 02-01-2024 Cephalexin Discontinued MG P O October 25, 2023 1:00am February 01, 2024 9:33am lidocaine 0.05 mg/mg medicated patch (4 sources) Antiarrhythmic, Amide Local Anesthetic Start: 05-27-2024 End: 04-23-2025 apply 1 dose topically once daily as needed for pain Lidocaine 5 % adhesive patch,medicated Discontinued 1 PATCH TOPICAL Daily as needed for pain 15 10 May 27, 2024 12:00am April 23, 2025 1:47pm leave on most painful area for up to 12 hrs methylPREDNISolone 4 mg oral tablet (8 sources) Corticosteroid Start: 05-27-2024 End: 04-23-2025 Methylprednisolone 4 mg tablets,dose pack Discontinued MG PO May 27, 2024 12:00am April 23, 2025 1:46pm Start: 05-27-2024 Methylpredniso lone Active MG PO May 27, 2024 12:00am Start: 10-25-2023 End: 02-01-2024 take 1 tablet by mouth once Methylprednisolone (Medrol (Marco Antonio)) 4 mg tablets,dose pack Discontinued 0 PO per package directions 1 October 25, 2023 1:00am February 01, 2024 9:33am PO PER PKG DIR for 6 days oxyCODONE hydrochloride 5 mg oral capsule (3 sources) Opioid Agonist Start: 04-23-2025 End: 04-24-2025 Oxycodone 5 mg capsule Discontinued 5 MG PO .Q6-Q8HR as needed for pain 20 5 April 23, 2025 April 24, 2025 3:22pm Problems Problem Classification Problem Date Documented Da [...] Chronic Chronic obstructive pulmonary disease and bronchiectasis (4 sources) Bronchitis; Translations: [Bronchitis, not specified as acute or chronic] 02-01-2024 Episodic Coronary atherosclerosis and other heart disease (1 source) History of non-ST segment elevation myocardial infarction 05-11-2024 Chronic Comment on above: Noted in [facility] page 4 , added per outpatient CDI policy. Disorders of lipid metabolism (2 sources) Pure hypercholesterolemia , unspecified; Translations: [Pure hypercholesterolemia , unspecified] Onset: 04-09-2025 Chronic E Codes: Fall (4 sources) Fall; Translations: [Unspecified fall, initial encounter] 05-27-2024 Episodic Fracture of lower limb (7 sources) Displaced trimalleolar fracture of right lower leg, initial encounter for closed fracture; Translations: [Trimalleolar fracture of right ankle] Onset: 04-26-2025 04-23-2025 Episodic Gastritis and duodenitis (1 source) Gastritis 04-06-2024 Episodic Immunizations and screening for infectious disease (4 sources) Contact with and (suspected) exposure to other viral communicable diseases; Translations: [Contact with or exposure to other viral diseases] 02-01-2024 Episodic Mycoses (2 sources) Onychomycosis 11-27-2022 Episodic Nutritional deficiencies (4 sources) Vitamin D deficiency; Translations: [Vitamin D deficiency, [...] conditions (not mental disorders or infectious disease) (4 sources) Patient encounter status; Translations: [Encounter for screening for malignant neoplasm of colon] 08-18-2023 Episodic Comment on above: Problem List clean-u p per request of Phys. EHR Cmte Other skin disorders (2 sources) Ingrowing great toenail 09-30-2023 Episodic Other upper respiratory infections (9 sources) Acute frontal sinusitis, unspecified; Translations: [Acute frontal sinusitis] Onset: 10-29-2023 Episodic Otitis media and related conditions (5 sources) Acute bilateral otitis media ; Translations: [Otitis media, unspecified, bilateral] 02-01-2024 Episodic Residual codes; unclassified (1 source) Postprocedural state finding; Translations: [Other specified postprocedural states] 04-26-2025 Episodic Spondylosis; intervertebral disc disorders; other back problems (4 sources) Lumbosacral spondylosis; Translations: [Spondylosis] 11-27-2022 Chronic Spondylosis; intervertebral disc disorders; other back problems (7 sources) Low back pain; Translations: [Low back pain] 05-27-2024 Episodic Syncope (2 sources) Syncope 11-27-2022 Episodic Unclassified (4 sources) Patient encounter status 03-03-2023 Unclassified (1 source) Body mass index 20-24 - normal 06-01-2024 Unclassified (1 source) Low back pain, unspecified; Translations: [Low back pain, unspecified] Onset: 05-27-2024 Results Test Name Value Interpretation Reference Range Facility XR ankle RT 2Von 04-26-2025 XR ankle RT 2V [facility] Main [place] [id number] XRay Report Signed Patient: [place] Bacon MR#: [id number] 696 : 1955 Acct:[id number] Age/Sex: 69 / F ADM Date: 04/26/25 Loc: [place] Room: Type: [facility] Attending Dr: Franco Bradley DO Copies to: Franco Bradley DO Ordering Provider: Franco Bradley DO Date of Service: 04/26/25 XR/XR ankle RT 2V: ORIF RT ANKLE Fluoroscopic assessment for ORIF right ankle HISTORY: Bimalleolar fracture right ankle 3 image was obtained. Cumulative Air Kerma in mGy: 1.75 mGy Intraoperative assessment for fixation of bimalleolar fracture. Adequate hardware without complication. XR/XR ankle RT 2V IMPRESSION: Adequate fixation hardware Impression dictated by: Gerald Lewis M.D. 04/26/2025 9:18 PM Dictation Location: [facility]- Transcribed By: [facility] 04/26/252117 Dictated By: Gerald Lewis DO 04/26/252115 Signed By: 04/26/252117 Normal [facility] Alanine aminotransferase [En zymatic activity/volume] in Serum or PlasmaOrdered By: Franco Bradley on 04-24-2025 ALT [Catalytic activity/Vol] 26 U/L Normal 7-52 [facility] Comment on above: Performed By: #### C BC, EBS A1C, CMP wRFX A1C #### [facility] [address] [place] [id number] [place] Albumin [Mass/volume] in Ser um or Plasma by Bromocresol green (BCG) dye binding methoOrdered By: Franco Bradley on 04-24-2025 Albumin BCG dye [Mass/Vol] 4.0 g/dL 3.5-5.7 [facility] Alkaline phosphatase [Enzyma tic activity/volume] in Serum or PlasmaOrdered By: Franco Bradley on 04-24-2025 ALP [Catalytic activity/Vol] 40 U/L Normal 34-104 [facility] Comment on above: Result Comment: PERF ORMED BY: [place] [address] PATHOLOGIST [employer] MATT LEIJA M.D. Performed By: #### C BC, EBS A1C, CMP wRFX A1C #### [facility] [address] [place] [id number] [place] Aspartate aminotransferase [ Enzymatic activity/volume] in Serum or PlasmaOrdered By: Franco Bradley on 04-24-2025 AST [Catalytic activity/Vol] 32 U/L Normal 13-39 [facility] Comment on above: Performed By: #### C BC, EBS A1C, CMP wRFX A1C #### [facility] [address] Basophils [#/volume] in Bloo d by Automated countOrdered By: Franco Bradley on 04-24-2025 Basophils (Bld) [#/Vol] 0.0 10*3/uL Normal 0.0-0.2 [facility] Comment on above: Result Comment: PERF ORMED BY: [place] [address] PATHOLOGIST [employer] MATT LEIJA M.D. Performed By: #### C BC, EBS A1C, CMP wRFX A1C #### [address] Basophils/100 leukocytes in Blood by Automated countOrdered By: Franco Bradley on 04-24-2025 Basophils/100 WBC (Bld) 0.5 % Normal . [facility] Comment on above: Performed By: #### C BC, EBS A1C, CMP wRFX A1C #### [facility] [address] [place] [address] Bilirubin.total [Mass/volume ] in Serum or PlasmaOrdered By: Franco Bradley on 04-24-2025 Bilirubin [Mass/Vol] 0.5 mg/dL Normal 0.3-1.0 [facility] Comment on above: Performed By: #### C BC, EBS A1C, CMP wRFX A1C #### [address] Blood estimated average gluc ose determination by estimation from glycated hemoglobinOrdered By: Franco Bradley on 04-24-2025 Average glucose Estimated from glycated hemoglobin (Bld) [Mass/Vol] 108 mg/dL [facility] CMP with reflex to A1Con Albumin [Mass/Vol] 4.0 g/dL Normal 3.5-5.7 [facility] Comment on above: Performed By: #### C BC, EBS A1C, CMP wRFX A1C #### [address] GFR/1.73 sq M.predicted MDRD (S/P/Bld) [Vol rate/Area] mL/min/{1.73_m2} Normal [facility] Comment on above: Performed By: #### C BC, EBS A1C, CMP wRFX A1C #### [address] Calcium [Mass/volume] in Ser um or PlasmaOrdered By: Franco Bradley on 04-24-2025 Calcium [Mass/Vol] 9.2 mg/dL Normal 8.6-10.3 [facility] Comment on above: Performed By: #### C BC, EBS A1C, CMP wRFX A1C #### [address] Carbon dioxide, total [Moles /volume] in Serum or PlasmaOrdered By: Franco Bradley on 04-24-2025 CO2 [Moles/Vol] 31.0 mmol/L Normal 21.0-31.0 [facility] Comment on above: Performed By: #### C BC, EBS A1C, CMP wRFX A1C #### [facility] [address] [place] [address] [place] Chloride [Moles/volume] in S omar or PlasmaOrdered By: Franco Bradley on 04-24-2025 Chloride [Moles/Vol] 104 mmol/L Normal 98-107 [facility] Comment on above: Performed By: #### C BC, EBS A1C, CMP wRFX A1C #### [facility] [address] [place] [address] Complete Blood Count Auto Di ffon 04-24-2025 Mean Corpuscular HGB Conc 33.7 g/dL Normal 32.0-35.0 [facility] Comment on above: Performed By: #### C BC, EBS A1C, CMP wRFX A1C #### [address] NRBC% 0.0 /100{WBC} Normal 0-0.5 [facility] Comment on above: Performed By: #### C BC, EBS A1C, CMP wRFX A1C #### [facility] [address] White Blood Count 9.0 [CFU]/mL Normal 3.8-11.6 [facility] Comment on above: Performed By: #### C BC, EBS A1C, CMP wRFX A1C #### [facility] [address] Creatinine [Mass/volume] in Serum or PlasmaOrdered By: Franco Bradley on 04-24-2025 Creatinine [Mass/Vol] 0.58 mg/dL Low 0.60-1.20 [facility] Comment on above: Performed By: #### C BC, EBS A1C, CMP wRFX A1C #### [facility] [address] EBS A1C with Estimated Ave G luon 04-24-2025 Glucose [Mass/Vol] 108 mg/dL Normal [facility] Comment on above: Result Comment: PERF ORMED BY: [place] [address] PATHOLOGIST [employer] MATT LEIJA M.D. Performed By: #### C BC, EBS A1C, CMP wRFX A1C #### [address] ECG 12 lead ECGon 04-24-2025 ECG 12 lead ECG [facility] Main [place] [address] [place] [address] Electrocardiograph Report Signed Patient: Flroida Bacon MR#: [id number] 696 : 1955 Acct:[id number] Age/Sex: 69 / F ADM Date: 04/24/25 Loc: Room: Type: [facility] Attending Dr: Franco Bradley DO Ordering Provider: Franco Bradley DO Date of Service: 04/24/25 ECG/ECG 12 lead ECG: Pre op Copies to: Test Reason : Blood Pressure : */* mmHG Vent. Rate : 67 BPM Atrial Rate : 67 BPM P-R Int : 140 ms QRS Dur : 66 ms QT Int : 436 ms P-R-T Axes : 71 18 40 degrees QTcB Int : 460 ms Normal sinus rhythm Normal ECG No previous ECGs available Confirmed by ABE QUILES MD ([id number]) on 04/24/2025 4:38:53 PM Referred By: Electronically Signed By: ABE QUILES MD Transcribed By: MUS Signed By Abe Quiles MD 0 04/24/25 1638 Normal [facility] Eosinophils [#/volume] in Bl ood by Automated countOrdered By: Franco Bradley on 04-24-2025 Eosinophils (Bld) [#/Vol] 0.1 10*3/uL Normal 0.0-0.45 [facility] Comment on above: Performed By: #### C BC, EBS A1C, CMP wRFX A1C #### [facility] [address] [place] [address] [place] Eosinophils/100 leukocytes i n Blood by Automated countOrdered By: Franco Bradley on 04-24-2025 Eosinophils/100 WBC (Bld) 1.5 % Normal . [facility] Comment on above: Performed By: #### C BC, EBS A1C, CMP wRFX A1C #### [facility] [address] [place] [address] [place] Erythrocyte distribution wid th [Ratio] by Automated countOrdered By: Franco Bradley on 04-24-2025 Erythrocyte distribution width (RBC) [Ratio] 14.5 % Normal 11.9-15.3 [facility] Comment on above: Performed By: #### C BC, EBS A1C, CMP wRFX A1C #### [facility] [address] [place] [address] [place] Erythrocytes [#/volume] in B lood by Automated countOrdered By: Franco Bradley on 04-24-2025 RBC (Bld) [#/Vol] 4.57 10*6/uL Normal 3.60-5.00 [facility] Comment on above: Performed By: #### C BC, EBS A1C, CMP wRFX A1C #### [facility] [address] Glomerular filtration rate [ Volume Rate/Area] in Serum, Plasma or Blood by CreatinineOrdered By: Franco Bradley on 04-24-2025 Glomerular filtration rate [Volume Rate/Area] in Serum, Plasma or Blood by Creatinine > 60.0 mL/Min [facility] Glucose [Mass/volume] in Ser um or PlasmaOrdered By: Franco Bradley on 04-24-2025 Glucose [Mass/Vol] 105 mg/dL High 70-100 [facility] Comment on above: ADA recommended refe rence range Result Comment: ADA recommended reference range Performed By: #### C BC, EBS A1C, CMP wRFX A1C #### [facility] [address] Hematocrit [Volume Fraction] of Blood by Automated countOrdered By: Franco Bradley on 04-24-2025 Hematocrit (Bld) [Volume fraction] 39.1 % Normal 34.0-46.4 [facility] Comment on above: Performed By: #### C BC, EBS A1C, CMP wRFX A1C #### [facility] [address] Hemoglobin A1c measurementOr dered By: Franco Bradley on 04-24-2025 HbA1c (Bld) [Mass fraction] 5.4 % Normal 4.3-5.6 [facility] Comment on above: Increased risk for d iabetes: 5.7 - 6.4diabetes: >6.4glycemic control for adults with diabetes: <7.0 Result Comment: Incr eased risk for diabetes: 5.7 - 6.4 diabetes: >6.4 glycemic control for adults with diabetes: <7.0 Performed By: #### C BC, EBS A1C, CMP wRFX A1C #### [facility] [address] Hemoglobin [Mass/volume] in BloodOrdered By: Franco Bradley on 04-24-2025 Hemoglobin (Bld) [Mass/Vol] 13.2 g/dL Normal 11.8-15.4 [facility] Comment on above: Performed By: #### C BC, EBS A1C, CMP wRFX A1C #### [facility] [address] [place] [address] [place] Leukocytes [#/volume] correc bonifacio for nucleated erythrocytes in Blood by Automated counOrdered By: Franco Bradley on 04-24-2025 WBC corrected for nucl RBC Auto (Bld) [#/Vol] 9.0 10*3/uL 3.8-11.6 [facility] Leukocytes [#/volume] in Blo od by Automated countOrdered By: Franco Bradley on 04-24-2025 WBC (Bld) [#/Vol] 9.0 10*3/uL Normal 3.8-11.6 [facility] Comment on above: Performed By: #### C BC, EBS A1C, CMP wRFX A1C #### [facility] [address] [place] [address] [place] Lymphocytes [#/volume] in Bl ood by Automated countOrdered By: Franco Bradley on 04-24-2025 Lymphocytes (Bld) [#/Vol] 1.4 10*3/uL Normal 1.00-4.8 [facility] Comment on above: Performed By: #### C BC, EBS A1C, CMP wRFX A1C #### [facility] [address] [place] [address] [place] Lymphocytes/100 leukocytes i n Blood by Automated countOrdered By: Franco Bradley on 04-24-2025 Lymphocytes/100 WBC (Bld) 15.5 % Normal . [facility] Comment on above: Performed By: #### C BC, EBS A1C, CMP wRFX A1C #### [facility] [address] [place] [address] [place] MCH [Entitic mass] by Automa bonifacio countOrdered By: Franco Bradley on 04-24-2025 MCH (RBC) [Entitic mass] 28.8 pg Normal 24.7-34.3 [facility] Comment on above: Performed By: #### C BC, EBS A1C, CMP wRFX A1C #### [facility] [address] MCHC Auto (RBC) [Mass/Vol]Or dered By: Franco Bradley on 04-24-2025 MCHC (RBC) [Mass/Vol] 33.7 g/dL 32.0-35.0 [facility] MCV [Entitic volume] by Auto mated countOrdered By: Franco Bradley on 04-24-2025 MCV (RBC) [Entitic vol] 85.5 fL Normal 80-100 [facility] Comment on above: Performed By: #### C BC, EBS A1C, CMP wRFX A1C #### [facility] [address] [place] [address] [place] Monocytes [#/volume] in Bloo d by Automated countOrdered By: Franco Bradley on 04-24-2025 Monocytes (Bld) [#/Vol] 0.6 10*3/uL Normal 0.0-0.8 [facility] Comment on above: Performed By: #### C BC, EBS A1C, CMP wRFX A1C #### [facility] [address] [place] [address] [place] Monocytes/100 leukocytes in Blood by Automated countOrdered By: Franco Bradley on 04-24-2025 Monocytes/100 WBC (Bld) 6.5 % Normal . [facility] Comment on above: Performed By: #### C BC, EBS A1C, CMP wRFX A1C #### [facility] [address] [place] [address] [place] Neutrophils [#/volume] in Bl ood by Automated countOrdered By: Franco Bradley on 04-24-2025 Neutrophils (Bld) [#/Vol] 6.8 10*3/uL Normal 1.8-7.7 [facility] Comment on above: Performed By: #### C BC, EBS A1C, CMP wRFX A1C #### [facility] [address] [place] [address] [place] Neutrophils/100 leukocytes i n Blood by Automated countOrdered By: Franco Bradley on 04-24-2025 Neutrophils/100 WBC (Bld) 76.0 % Normal . [facility] Comment on above: Performed By: #### C BC, EBS A1C, CMP wRFX A1C #### [facility] [address] [place] [address] No Panel InformationOrdered By: Franco Bradley on 04-24-2025 Pharmacy Creatinine Clearance (Chem N/A [facility] Nucleated erythrocytes [Pres ence] in Blood by Automated countOrdered By: Franco Bradley on 04-24-2025 Nucleated RBC Auto Ql (Bld) 0.0 /100{WBC} 0-0.5 [facility] Platelet mean volume [Entiti c volume] in Blood by Automated countOrdered By: Franco Bradley on 04-24-2025 Platelet mean volume (Bld) [Entitic vol] 7.5 fL Normal 6.3-10.7 [facility] Comment on above: Performed By: #### C BC, EBS A1C, CMP wRFX A1C #### [facility] [address] [place] [address] [place] Platelets [#/volume] in Bloo d by Automated countOrdered By: Franco Bradley on 04-24-2025 Platelets (Bld) [#/Vol] 237 10*3/uL Normal 150-450 [facility] Comment on above: Performed By: #### C BC, EBS A1C, CMP wRFX A1C #### [facility] [address] [place] [address] [place] Potassium [Moles/volume] in Serum or PlasmaOrdered By: Franco Bradley on 04-24-2025 Potassium [Moles/Vol] 4.0 mmol/L Normal 3.5-5.1 [facility] Comment on above: Performed By: #### C BC, EBS A1C, CMP wRFX A1C #### [facility] [address] [place] [address] [place] Protein [Mass/volume] in Ser um or PlasmaOrdered By: Franco Bradley on 04-24-2025 Protein [Mass/Vol] 6.3 g/dL Low 6.4-8.9 [facility] Comment on above: Performed By: #### C BC, EBS A1C, CMP wRFX A1C #### [facility] [address] [place] [address] [place] Serum globulin measurement b y calculation (mass/volume)Ordered By: Franco Bradley on 04-24-2025 Globulin (S) [Mass/Vol] 2.3 g/dL Normal [facility] Comment on above: Performed By: #### C BC, EBS A1C, CMP wRFX A1C #### [facility] [address] Serum or plasma albumin/glob ulin mass ratioOrdered By: Franco Bradley on 04-24-2025 Albumin/Globulin [Mass ratio] 1.7 {ratio} Normal [facility] Comment on above: Performed By: #### C BC, EBS A1C, CMP wRFX A1C #### [facility] [address] Serum or plasma anion gap de terminationOrdered By: Franco Bradley on 04-24-2025 Anion gap [Moles/Vol] 10.0 mmol/L Normal 6.0-15.0 [facility] Comment on above: Performed By: #### C BC, EBS A1C, CMP wRFX A1C #### [facility] [address] [place] [address] Sodium [Moles/volume] in Ser um or PlasmaOrdered By: Franco Bradley on 04-24-2025 Sodium [Moles/Vol] 141 mmol/L Normal 136-145 [facility] Comment on above: Performed By: #### C BC, EBS A1C, CMP wRFX A1C #### [address] Urea nitrogen [Mass/volume] in Serum or PlasmaOrdered By: Franco Bradley on 04-24-2025 Urea nitrogen [Mass/Vol] 14 mg/dL Normal 7-25 [facility] Comment on above: Performed By: #### C BC, EBS A1C, CMP wRFX A1C #### [address] Provider Letteron 04-12-2025 Provider Letter Provider Letter April 12, 2025 [place] [address] : 1955 To Whom It May Concern, Please excuse above patient from work. Date of Illness: From: 04/12/2025 To: 04/15/2025 May Return to Work On: 04/16/2025 Sincerely, [address] [address] [facility] Ambulatory Visit Summaryon 0 04-11-2025 Ambulatory Visit [...] Follow-Up Appointments Wednesday 2:30 PM EDT Where: [address] [address]- Medications What How Much When Why Instructions [...] can b (more content not included)... 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 However, her cholesterol level was previously recorded [...] No qualifying data available Patient Education Pharyngitis, [id number] Problem List/Past Medical History Ongoing Acute bronchitis [...] Refuses SA (more content not included)... Normal [facility] Comment on above: Result Comment: Elec tronically Signed By: LIZBETH QUINTERO CNP\.br\Date and Time Signed: 04/11/25 19:48 EDT Office Visiton 04-09-2025 Follow-up visit [id number] [place] Bacon 1955 F Date Provider Department Center 04/09/2025 RhiannonAUGUST HAYES JOSEMANUEL Mcpherson [facility] Family History Family Status - Relation Status Age at Mother Father Level of Service:81840 AL OFFICE/OUTPATIENT ESTABLISHED LOW MDM 20 MIN Normal [facility] Ambulatory Visit Summaryon 0 03-23-2025 Ambulatory Visit [...] Follow-Up Appointments Wednesday 2:30 PM EDT Where: [place] [id number]- Medications What How Much When Why Instructions [...] signed up for this yet, please contact [employer] at [phone] to get signed up today. Language Information Language assistance services are available as needed. Normal [facility] CBC w/ Auto Diffon 5 Basophil Absolute 0.1 E9/L Normal 0.0-0.2 [facility] Comment on above: Performed By: #### 2 [id number] #### [facility] [address] [place] [address] Basophils/100 WBC (Bld) 1.1 % Normal 0.0-2.0 F [facility] Comment on above: Performed By: #### 2 076786 #### [facility] [address] [place] [address] Eos Absolute 0.2 E9/L Normal 0.0-0.5 [facility] Comment on above: Performed By: #### 2 824684 #### [facility] [address] [place] [address] Eosinophils/100 WBC (Bld) 4.0 % Normal 0.0-8.0 [facility] Comment on above: Performed By: #### 2 [id number] #### [facility] [address] [place] [address] Erythrocyte distribution width (RBC) [Ratio] 15.1 % High 10.9-14.2 [facility] Comment on above: Performed By: #### 2 499315 #### [facility] [address] [place] [address] Hematocrit (Bld) [Volume fraction] 41.0 % Normal 34.0-46.0 [facility] Comment on above: Performed By: #### 2 504221 #### [facility] [address] [place] [address] Hemoglobin (Bld) [Mass/Vol] 13.8 g/dL Normal 12.0-16.0 [facility] Comment on above: Performed By: #### 2 143221 #### [facility] [address] [place] [address] Lymph Absolute 1.1 E9/L Normal 1.0-4.0 [facility] Comment on above: Performed By: #### 2 545673 #### [facility] [address] [place] [address] Lymphocytes/100 WBC (Bld) 18.6 % Normal 14.0-50.0 [facility] Comment on above: Performed By: #### 2 639773 #### [facility] [address] [place] [address] MCH (RBC) [Entitic mass] 29.1 pg Normal 27.0-34.0 [facility] Comment on above: Performed By: #### 2 132446 #### [facility] [address] [place] [address] MCHC (RBC) [Mass/Vol] 33.8 g/dL Normal 31.4-36.0 [facility] Comment on above: Performed By: #### 2 126556 #### [facility] [address] [place] [address] MCV (RBC) [Entitic vol] 86.3 fL Normal 80.0-100.0 F [facility] Comment on above: Performed By: #### 2 469878 #### [facility] [address] [place] [address] [place] Absolute 0.4 E9/L Normal 0.2-1.0 [facility] Comment on above: Performed By: #### 2 926480 #### [facility] [address] [place] [address] Monocytes/100 WBC (Bld) 6.8 % Normal 4.0-14.0 F [facility] Comment on above: Performed By: #### 2 369641 #### [facility] [address] [place] [address] Neutro Absolute 4.2 E9/L Normal 2.0-7.5 [facility] Comment on above: Performed By: #### 2 035068 #### [facility] [address] [place] [address] Neutro Auto 69.5 % Normal 36.0-75.0 [facility] Comment on above: Performed By: #### 2 889937 #### [facility] [address] [place] [address] Platelet 211.0 E9/L Normal 150.0-500.0 [facility] Comment on above: Performed By: #### 2 265419 #### [facility] [address] [place] [address] Platelet mean volume (Bld) [Entitic vol] 7.8 fL Normal 6.4-10.8 [facility] Comment on above: Performed By: #### 2 727370 #### [facility] [address] [place] [address] RBC 4.8 E12/L Normal 4.3-5.9 [facility] Comment on above: Performed By: #### 2 537111 #### [facility] [address] [place] [address] WBC 6.1 E9/L Normal 4.0-11.0 [facility] Comment on above: Performed By: #### 2 703212 #### [facility] [address] [place] [address] CMPon 03-23-2025 Albumin [Mass/Vol] 4.1 g/dL Normal 3.3-5.0 [facility] Comment on above: Performed By: #### 2 925735 #### [facility] [address] [place] [address] Albumin/Globulin [Mass ratio] 1.6 {ratio} Normal 1.1-2.2 [facility] Comment on above: Performed By: #### 2 974061 #### [facility] [address] [place] [address] Alk Phos 37 Int._Unit/L Normal 21-98 [facility] Comment on above: Performed By: #### 2 137380 #### [facility] [address] [place] [address] ALT 22 Int._Unit/L Normal 6-46 [facility] Comment on above: Performed By: #### 2 160721 #### [facility] [address] [place] [address] Anion gap [Moles/Vol] 10 mmol/L Normal 6-16 [facility] Comment on above: Performed By: #### 2 907356 #### [facility] [address] [place] [address] AST 28 Int._Unit/L Normal 5-43 [facility] Comment on above: Performed By: #### 2 121274 #### [facility] [address] [place] [address] Bili Total 0.6 mg/dL Normal 0.0-1.1 [facility] Comment on above: Performed By: #### 2 050528 #### [facility] [address] [place] [address] BUN/Creat Ratio 36 No Units High 10-20 [facility] Comment on above: Performed By: #### 2 803566 #### [facility] [address] [place] [address] Calcium [Mass/Vol] 9.3 mg/dL Normal 8.9-11.1 [facility] Comment on above: Performed By: #### 2 658872 #### [facility] [address] [place] [address] Chloride [Moles/Vol] 107 mmol/L Normal 101-111 [facility] Comment on above: Performed By: #### 2 095109 #### [facility] [address] [place] [address] CO2 [Moles/Vol] 28 mmol/L Normal 21-31 [facility] Comment on above: Performed By: #### 2 054532 #### [facility] [address] [place] [address] Creatinine [Mass/Vol] 0.7 mg/dL Normal 0.5-1.3 [facility] Comment on above: Performed By: #### 2 548707 #### [facility] [address] [place] [address] Globulin (S) [Mass/Vol] 2.5 g/dL Normal 1.4-4.0 [facility] Comment on above: Performed By: #### 2 740250 #### [facility] [address] [place] [address] Glucose [Mass/Vol] 73 mg/dL Normal 55-199 [facility] Comment on above: Performed By: #### 2 734034 #### [facility] [address] [place] [address] Potassium [Moles/Vol] 4.3 mmol/L Normal 3.5-5.3 [facility] Comment on above: Performed By: #### 2 441061 #### [facility] [address] [place] [address] Protein [Mass/Vol] 6.6 g/dL Normal 6.0-7.8 [facility] Comment on above: Performed By: #### 2 171009 #### [facility] [address] [place] [address] Sodium [Moles/Vol] 141 mmol/L Normal 135-145 [facility] Comment on above: Performed By: #### 2 700537 #### [facility] [address] [place] [address] Urea nitrogen [Mass/Vol] 25 mg/dL High 5-21 [facility] Comment on above: Performed By: #### 2 129323 #### [facility] [address] [place] [address] Lipid Panelon 03-23-2025 Cholesterol [Mass/Vol] 177 mg/dL Normal 120-200 [facility] Comment on above: Performed By: #### 2 896658 #### [facility] [address] [place] [address] Cholesterol in HDL [Mass/Vol] 51 mg/dL Invalid Interpretation Code [facility] Comment on above: Result Comment: '>= 60 LOW RISK' '<= 40 HIGH RISK' Performed By: #### 2 712990 #### [facility] [address] [place] [address] Cholesterol in LDL [Mass/Vol] 118 mg/dL Normal <=129 [facility] Comment on above: Performed By: #### 2 781448 #### [facility] [address] [place] [address] Cholesterol in VLDL [Mass/Vol] 14 mg/dL Normal 7-40 [facility] Comment on above: Performed By: #### 2 875110 #### [facility] [address] [place] [address] Triglyceride [Mass/Vol] 70 mg/dL Normal <=149 F [facility] Comment on above: Performed By: #### 2 567413 #### [facility] [address] [place] [address] TSHon 03-23-2025 TSH Qn 1.14 m[IU]/L Normal 0.34-5.60 [facility] Comment on above: Performed By: #### 2 733618 #### [facility] [address] [place] [address] Vitamin D 25 Hydroxyon 03-23 Vitamin D 25 Hydroxy 52.5 ng/mL Normal 30.0-100.0 [facility] Comment on above: Performed By: #### 5 [id number] #### [facility] [address] [place] [address] eGFRon 03-23-2025 eGFR 93 mL/min/1.73 m2 Normal >=59 [facility] Comment on above: Performed By: #### 1 [id number] #### [facility] [address] [place] [address] Provider Letteron 02-16-2025 Provider Letter Provider Letter February 16, 2025 [place] [address] : 1955 Dear [place] , We have been trying to reach you with no success. It is important that you return our call regarding your lab draw appointment on February 23, 2025 upon receiving this letter. Also, at the time of your call, please provide us with your current information. Thank you for your prompt attention to this matter. Sincerely, [address] [address] [facility] Ambulatory Visit Summaryon 0 02-05-2025 Ambulatory Visit [...] Follow-Up Appointments Wednesday 9:20 AM EDT Where: [address] [address]- Wednesday 2:30 PM EDT Where: [address] [address]- Medications What How Much When Why Instructions [...] for choosing us for your care. Normal [facility]/Clini c Noteon 02-05-2025 [...] day(s), # 21 cap(s), Refills(s) 0, Pharmacy: [facility], 158, cm, 02/05/25 14:07:00 EDT, Height/Length Dosing, 52.9, kg, 02/05/25 14:07:00 EDT, Weight Dosing 2. BMI 21.0-21.9, adult (Z68.21: Body mass index [BMI] 21.0-21.9, adult) BMI education Ordered: amoxicillin, 500 mg = 1 cap(s), Oral, TID, X 7 day(s), # 21 cap(s), Refills(s) 0, Pharmacy: [facility], 158, cm, 02/05/25 14:07:00 EDT, [...] vac - Not Given Patient Refuses Normal [facility] Comment on above: Result Comment: Elec [...] Follow-Up Appointments Wednesday 9:20 AM EDT Where: [address] [phone]- Wednesday 2:30 PM EDT Where: [address] [address]- Medications What How Much When Why Instructions [...] for choosing us for your care. Normal [facility] Office/Clini c Noteon 01-31-2025 [...] daily, # 90 tab(s), Refills(s) 0, Pharmacy: [facility], 158, cm, 12/07/24 14:09:00 EDT, Height/Length Dosing, 51.9, kg, 12/07/24 14:09:00 EDT, Weight Dosing escitalopram, See Instructions, Take 1 tablet by mouth once daily, # 90 tab(s), Refills(s) 0, Pharmacy: [facility], 158, cm, 01/31/25 10:20:00 EDT, Height/Length Dosing, 53.6, kg, 01/31/25 10:20:00 EDT, Weight Dosing fluticasone nasal, 2 spray(s), Nasal, Daily, 16 gram, Refill(s) 0, each nostril, [facility], 158, cm, 08/31/24 14:31:00 EST, Height/Length Dosing, 49.6, kg, 08/31/24 14:31:00 EST, Weight Dosing omeprazole, 40 mg = 1 cap(s), Oral, Daily, X 90 day(s), # 90 cap(s), Refills(s) 3, Pharmacy: [facility], 158, cm, 01/31/25 10:20:00 EDT, Height/Length Dosing, 53.6, kg, 01/31/25 10:20:00 EDT, Weight Dosing omeprazole, 40 mg = 1 cap(s), Oral, Daily, # 90 cap(s), Refills(s) 0, Pharmacy: [facility], 158, cm, 12/07/24 14:09:00 EDT, Height/Length Dosing, 51.9, kg, 12/07/24 14:09:00 EDT, Weight Dosing oxybutynin, See Instructions, Take 1 tablet by mouth once daily, # 90 tab(s), Refills(s) 3, Pharmacy: [facility], 158, cm, 04/06/24 14:41:00 EDT, Height/Length Dosing, 54.1, kg, 04/06/24 14:41:00 EDT, Weight Dosing oxybutynin, 10 mg = 1 tab(s), Oral, Daily, # 90 tab(s), Refills(s) 3, Pharmacy: [facility], 158, cm, 01/31/25 10:20:00 [...] Cholecystectomy, Colonoscop (more content not included)... Normal [facility] Comment on above: Result Comment: Elec [...] a lot of caffeine. order faxed to [facility] 2. BMI 20.0-20.9, adult (Z68.20: Body mass [...] oral tablet, See Instructions Flonase 0.05 mg/inh Acme, 2 spray(s), Nasal, Daily meloxicam 15 mg [...] vac - Not Given Patient Refuses Normal [facility] Comment on above: Result Comment: Elec tronically Signed By: Carlos BARRON, Millie Gallagher\.br\Date and Time Signed: 12/07/24 14:28 EDT Reminderson 09-28-2024 Reminders Reminders From: Arabella Herrera LPN To: [facility] - Clinical; Sent: 09/28/2024 14:17:59 EST Show up: 08/27/2034 07:00:00 EST Subject: colonoscopy recall Due Date/Time: 09/27/2034 07:00:00 EST Reminder/Recall Patient due for screening colonoscopy 09/27/2034. Normal [facility] Office/Clini c Noteon 08-31-2024 [...] Daily, 16 gram, Refill(s) 0, each nostril, [facility], 158, cm, 08/31/24 14:31:00 EST, Height/Length Dosing, 49.6, kg, 08/31/24 14:31:00 EST, Weight Dosing Influenza Type A&B POC 83504 Rapid COVID POC 71714 Orders: amoxicillin, 500 mg = 1 cap(s), Oral, TID, X 7 day(s), # 21 cap(s), Refills(s) 0, Pharmacy: [facility], 158, cm, 08/31/24 14:31:00 [...] oral tablet, See Instructions Flonase 0.05 mg/inh Acme, 2 spray(s), Nasal, Daily meloxicam 15 mg [...] Rapid Covid POC: Negative (08/31/24 14:43:00) Normal [facility] Comment on above: Result Comment: Elec tronically Signed By: Millie Florentino\.asaf\Date and Time Signed: 08/31/24 14:46 EST Ambulatory Visit Summaryon 1 09-18-2023 Ambulatory Visit Summary Ambulatory Visit Summary [place] BACON :1955 Visit Date:07/19/2024 Ambulatory Visit Instructions [...] Follow-Up Appointments Wednesday 2:30 PM EDT Where: [place] [id number]- Medications What How Much When Why Instructions [...] you for choosing us for your care. [facility] Ambulatory Visit Summaryon 1 Ambulatory Visit Summary Ambulatory Visit Summary JERAMIE BACONPANTERA Selby :1955 Visit Date:06/06/2024 Ambulatory Visit Instructions Your [...] Follow-Up Appointments Wednesday 2:30 PM EDT Where: [facility] [address] [address]- Medications What How Much When Why Instructions [...] for your care. Normal [facility] Family Medicine Office/Clini c Noteon 06-06-2024 Family Medicine Office/Clinic Note Family Medicine Office/Clinic Note HPI Staff [place] is a 68 year old female presenting with needing clearance to go back to work RADHA- waiting for MRI - Has not called for them to schedule them Message in chart from consult with Dr Vela in [place] or [place] yesterday- Still has to call back History [...] for malignant neoplasm of breast) order for [facility] provided and faxed Follow-up No qualifying [...] vac - Not Given Patient Refuses [facility] Comment on above: Result Comment: Elec tronically Signed By: Millie Florentino\.br\Date and Time Signed: 06/06/24 14:24 EDT Provider Letteron 06-06-2024 Provider Letter Provider Letter [address] [place] [address] June 06, 20[address] [address] : 1955 To Whom It May Concern, Please excuse above patient from work due to injury. Date of Illness: From: 05/29/2024 To: 06/07/2024 May Return to Work On:06/08/2024 Restrictions: No vibrating hand tools Sincerely, JAH Jon [facility] Provider Letter Provider Letter [address] [place], [place] [id number] June 06, [address] [place] [address] [address] : 1955 To Whom It May Concern, Please excuse above patient from work due to injury. Date of Illness: From: 05/29/2024 To: 06/07/2024 May Return to Work On:06/08/2024 Restrictions: none Sincerely, JAH Jon [facility] Ambulatory Visit Summaryon 0 06-02-2024 Ambulatory [...] Follow-Up Appointments Wednesday 2:30 PM EDT Where: [facility] Medicine [address] [address]- You Need to Complete the Following MA Mamm Screen w/CAD if perf and 3D Dimitri, 06/01/24, Routine, Order for Future Visit, Transport Mode: Ambulatory, Reason: Screening, No, Breast cancer screening by mammogram, pp_set_radiology_subs pecialty, [facility] Medications What How Much When [...] soaking i (more content not included)... Normal [facility] Medicine Office/Clini c Noteon 06-02-2024 Family Medicine Office/Clinic Note Family Medicine Office/Clinic Note HPI Staff [place] is a 68 year old female presents today for colonoscopy & mammogram order. Order sent for mammogram to [facility] by Lydia Colonoscopy ? [facility] if they do this? History of [...] would like to have it done at [facility]. referral placed for Dr. Vela to do at [facility] Ordered: E&M of Est. Patient Straight Fwd 10-19 Min 20645 [facility] Internal Ambulatory Referral 2. Right low back pain (M54.50: Low back pain, unspecified) completed [place] paperwork. pain is somewhat improving. waiting for MRI Ordered: E&M of Est. Patient Straight Fwd 10-19 Min 12002 Orders: 1125F Pain severity quantified; pain present [...] vac - Not Given Patient Refuses [facility] Comment on above: Result Comment: Elec tronically Signed By: Millie Florentino\.asaf\Date and Time Signed: 06/02/24 10:05 EDT Family [...] of clutter to prevent tripping and/or falling. [place] Advance Directives reviewed. Documents provided to patient, [...] ordered and has been faxed to the [facility] per patient request, hospital will call [...] for sturdiness. (more content not included)... Normal [facility] Comment on above: Result Comment: Elec tronically Signed By: Millie Florentino\.br\Date and Time Signed: 06/02/24 09:25 EDT\.br\Electronically Co-Signed By: Lydia Rodrigues\.br\Date and Time Co-Signed: 06/01/24 15:44 EDT Ambulatory Visit Summaryon 0 05-29-2024 Ambulatory Visit Summary Ambulatory Visit Summary [place] :1955 Visit Date:05/29/2024 Ambulatory Visit Instructions Your [...] Appointments 2023 2:30 PM EDT With: Where: [facility] Medicine [address] [address] 2023 3:00 PM EDT With: Millie Florentino Where: [place] [id number]- Medications What How Much When Why Instructions [...] for choosing us for your care. Normal [facility] Medicine Office/Clini c Noteon 05-29-2024 [...] pain, # 30 tab(s), Refills(s) 0, Pharmacy: [facility], 158, cm, 05/29/24 13:41:00 EDT, Height/Length Dosing, 52.5, kg, 05/29/24 13:41:00 EDT, Weight Dosing 2. Right low back pain (M54.50: Low back pain, unspecified) pt fell and landed on right lower back Ordered: tramadol, 50 mg = 1 tab(s), Oral, q12hr, PRN for pain, # 30 tab(s), Refills(s) 0, Pharmacy: [facility], 158, cm, 05/29/24 13:41:00 EDT, Height/Length Dosing, 52.5, kg, 05/29/24 13:41:00 EDT, Weight Dosing 3. BMI 21.0-21.9, adult (Z68.21: Body mass index [BMI] 21.0-21.9, adult) BMI education Ordered: tramadol, 50 mg = 1 tab(s), Oral, q12hr, PRN for pain, # 30 tab(s), Refills(s) 0, Pharmacy: [facility], 158, cm, 05/29/24 13:41:00 EDT, Height/Length [...] pain, # 30 tab(s), Refills(s) 0, Pharmacy: [facility], 158, cm, 05/29/24 13:41:00 EDT, Height/Length [...] vac - Not Given Patient Refuses [facility] Comment on above: Result Comment: Elec tronically Signed By: Millie Florentino\.br\Date and Time Signed: 05/29/24 14:13 EDT Provider Letteron 05-29-2024 Provider Letter Provider Letter May 29, 2024 FLOR[place] BACON [address] [place] [id number] : 1955 To Whom It May Concern, Please excuse above patient from work due to medical Date of Illness: From: 05-29-24 To: 05-30-24 May Return to Work On: 05-31-24 Restrictions: _ Comments: _ Sincerely, Normal [facility] XR lumbar spine min 4V*on XR lumbar spine min 4V* [facility] [place] [address] [place] [address] XRay Report Signed Patient: Florida Bacon MR#: [id number] 6 : 1955 Acct:[id number] Age/Sex: 68 / F ADM Date: 05/27/24 Loc: XDUCLY Room: Type: [facility] Attending Dr: Zoila العراقي APRN Copies [...] Marinelli Jr., D.O.05/27/2024 2:47 PM Dictation Location: [place] [address] Transcribed By: [facility] 05/27/24 1447 Dictated By: Eleuterio Marinelli Jr, DO 05/27/24 1446 Signed By: 05/27/[address] [facility] Ambulatory Visit Summaryon [...] Appointments 2023 2:30 PM EDT With: Where: [address] [address]- 2023 3:00 PM EDT With: Millie Florentino Where: [address] [address]- Someone Will Contact You Regarding These Appointments [facility] External Ambulatory Referral, Podiatry, Dr. Trimble, 05/12/24 10:37:00 EDT, Foot pain, right Non-smoker BMI 20.0-20.9, adult Medications What How Much When Why Instructions New meloxicam (meloxicam 15 mg Tab) 1 Tablets By Mouth Every day Foot pain, right Non-smoker BMI 20.0-20.9, adult Pickup at [facility] New methylPREDNISolone (Medrol 4 mg Tab) 1 Packets By Mouth As Directed Foot pain, right Non-smoker BMI 20.0-20.9, adult Duration: 6 Days as directed on package labeling Pickup at [facility] 142 Unchanged aspirin 81 Milligram By Mouth [...] Gram By Mouth Every day Pharmacy Information [facility] 1429: [address] [place], [place] [id number] [phone] Allergies No Known Medication Allergies Problems Ongoing [...] choosing us for your care. Lisy Arcos [facility] Office/Clini c Noteon 05-12-2024 [...] Daily, # 30 tab(s), Refills(s) 0, Pharmacy: [facility], 158, cm, 05/12/24 10:25:00 EDT, Height/Length Dosing, 52.3, kg, 05/12/24 10:25:00 EDT, Weight Dosing methylPREDNISolone, = 1 packet(s), Oral, As Directed, as directed on package labeling, X 6 day(s), # 21 tab(s), Refills(s) 0, Pharmacy: [facility], 158, cm, 05/12/24 10:25:00 EDT, Height/Length Dosing, 52.3, kg, 05/12/24 10:25:00 EDT, Weight Dosing [facility] [place] External Ambulatory Referral 2. Non-smoker (Z78.9: Other specified health status) continue not smoking Ordered: meloxicam, 15 mg = 1 tab(s), Oral, Daily, # 30 tab(s), Refills(s) 0, Pharmacy: [facility], 158, cm, 05/12/24 10:25:00 EDT, Height/Length Dosing, 52.3, kg, 05/12/24 10:25:00 EDT, Weight Dosing methylPREDNISolone, = 1 packet(s), Oral, As Directed, as directed on package labeling, X 6 day(s), # 21 tab(s), Refills(s) 0, Pharmacy: [facility], 158, cm, 05/12/24 10:25:00 EDT, Height/Length Dosing, 52.3, kg, 05/12/24 10:25:00 EDT, Weight Dosing Body Mass Index (BMI) documented 3008F Current tobacco non-user 1036F Depression Screening Negative 3352F [facility] [place] External Ambulatory Referral [...] 30 tab(s), Refills(s) 0, Pharmacy: [facility], 158, cm, 05/12/24 10:25:00 EDT, Height/Length Dosing, 52.3, kg, 05/12/24 10:25:00 EDT, Weight Dosing methylPREDNISolone, = 1 packet(s), Oral, As Directed, as directed on package labeling, X 6 day(s), # 21 tab(s), Refills(s) 0, Pharmacy: [facility], 158, cm, 05/12/24 10:25:00 EDT, Height/Length Dosing, 52.3, kg, 05/12/24 10:25:00 EDT, Weight Dosing Body Mass Index (BMI) documented 3008F Current tobacco non-user 1036F Depression Screening Negative 3352F [facility] [place] External Ambulatory Referral [...] Appendectomy, Cholecystecto (more content not included)... [facility] Comment on above: Result Comment: Elec tronically Signed By: Millie Florentino\.br\Date and Time Signed: 05/12/24 10:43 EDT Follow-Upon 04-21-2024 Follow-Up [id number] Florida Bacon 1955 F Date Provider Department Center 04/21/2024 3848-DAVID POLO [facility] No family history on file Level of Service:74314 AL OFFICE/OUTPATIENT ESTABLISHED LOW MDM 20 MIN Reason for Visit and Comments: Follow-up [099497] - [facility] Follow up Concerns: No further cardiac concerns/symptoms. Normal [facility] Vital Signs Date Time Vital Sign Value Performing Clinician Facility 04-26-2025 18:27-0400 Diastolic blood pressure 69 mm[Hg] Luisito Roth MD Work Phone: [facility] 04-26-2025 18:27-0400 Heart rate 79 /min Luisito Roth MD Work Phone: [facility] 04-26-2025 18:27-0400 Respiratory rate 16 /min Luisito Roth MD Work Phone: [facility] 04-26-2025 18:27-0400 SaO2% (BldA) [Mass fraction] 97 % Luisito Roth MD Work Phone: [facility] 04-26-2025 18:27-0400 Systolic blood pressure 149 mm[Hg] Luisito Roth MD Work Phone: [facility] 04-26-2025 17:50-0400 Body temperature 98.7 [degF] Luisito Roth MD Work Phone: [facility] 04-26-2025 17:23-0400 Inhaled oxygen flow rate 7 L/min Luisito Roth MD Work Phone: [facility] 04-26-2025 11:04-0400 Body height 157.48 cm Luisito Roth MD Work Phone: [facility] 04-26-2025 11:04-0400 Body weight 57 kg Luisito Roth MD Work Phone: [facility] 04-23-2025 13:47-0400 Body height 157.48 cm Luisito Roth MD Work Phone: [facility] 04-23-2025 13:47-0400 Body mass index (BMI) [Ratio] 22.8 kg/m2 Luisito Roth MD Work Phone: [facility] 04-23-2025 13:47-0400 Body weight 56.69 kg Luisito Roth MD Work Phone: [facility] 07-19-2024 15:52-0500 Blood Pressure Location Addy VELA [facility] 07-19-2024 15:52-0500 Diastolic blood pressure 58 mm[Hg] Addy VELA [facility] 07-19-2024 15:52-0500 Heart rate 72 /min Addy NAYAKL [facility] 07-19-2024 15:52-0500 Respiratory rate 16 /min Addy VELA [facility] 07-19-2024 15:52-0500 Systolic blood pressure 122 mm[Hg] Addy VELA [facility] 05-27-2024 14:05-0400 Body height 156.21 cm MD Luisito Roth Work Phone: [facility] 05-27-2024 14:05-0400 Body mass index (BMI) [Ratio] 21.4 kg/m2 MD Luisito Roth Work Phone: [facility] 05-27-2024 14:05-0400 Body temperature 98.2 [degF] MD Luisito Roth Work Phone: [facility] 05-27-2024 14:05-0400 Body weight 52.16 kg MD Luisito Roth Work Phone: [facility] 05-27-2024 14:05-0400 Diastolic blood pressure 69 mm[Hg] MD Luisito Roth Work Phone: [facility] 05-27-2024 14:05-0400 Heart rate 56 /min MD Luisito Roth Work Phone: [facility] 05-27-2024 14:05-0400 SaO2% (BldA) [Mass fraction] 98 % MD Luisito Roth Work Phone: [facility] 05-27-2024 14:05-0400 Systolic blood pressure 128 mm[Hg] MD Luisito Roth Work Phone: [facility] 10-29-2023 13:26-0500 Blood Pressure Location HOMINY MAYRA [facility] 10-29-2023 13:26-0500 Body temperature 97.88 [degF] [facility] 10-29-2023 13:26-0500 Diastolic blood pressure 80 mm[Hg] [facility] 10-29-2023 13:26-0500 Heart rate 77 /min [facility] 10-29-2023 13:26-0500 SaO2% (BldA) [Mass fraction] 96 % [facility] 10-29-2023 13:26-0500 Systolic blood pressure 120 mm[Hg] [facility] Encounters Encounter Date Encounter Type Care Provider Facility Start: 06-04-2025 ambulatory Millie Gonzalez Facility: [facility] Start: 04-26-2025 End: 04-26-2025 ambulatory Franco Bradley Facility:[facility] Start: 04-26-2025 Non-patient / Non-visit Franco quick DO -[facility] Work Phone: Start: 04-24-2025 End: 04-24-2025 Patient encounter procedure Franco Bradley DO -Pre-Surgical Testing Work Phone: Start: 04-24-2025 End: 04-24-2025 ambulatory Luisito Roth MD Work Phone: [facility] Work Phone: Start: 04-24-2025 Encounter for preprocedural laboratory examination Franco Bradley [facility] Start: 04-23-2025 End: 04-23-2025 ambulatory Luisito Roth MD Work Phone: [facility] Work Phone: Start: 04-23-2025 End: 04-23-2025 Patient encounter procedure Franco Bradley [facility] Work Phone: Start: 04-11-2025 End: 04-11-2025 ambulatory LIZBETH HURSTANN Facility:[facility] [place] Start: 04-09-2025 End: 04-09-2025 ambulatory [facility] Start: 03-23-2025 End: 03-23-2025 ambulatory Millie L Carlos Facility:[facility] Start: 03-08-2025 ambulatory Millie L Carlos Facility: [facility] [place] Start: 02-23-2025 ambulatory Millie L Carlos Facility: [facility] [place] Start: 02-05-2025 End: 02-05-2025 ambulatory Millie L Carlos Facility:[facility] [place] Start: 01-31-2025 End: 01-31-2025 ambulatory Millie L Carlos Facility:[facility] [place] Start: 12-07-2024 End: 12-07-2024 ambulatory Millie L Carlos Facility:[facility] [place] Start: 09-27-2024 End: 09-27-2024 ambulatory Addy VELA Facility:CD:[id number] Start: 08-31-2024 End: 08-31-2024 ambulatory Millie L Carlos Facility:[facility] [place] Start: 07-19-2024 End: 07-19-2024 ambulatory Addy VELA Facility: [place] Start: 07-19-2024 End: 07-19-2024 Patient encounter procedure Addy VELA [facility] [place] Start: 06-06-2024 End: 06-06-2024 ambulatory Millie L Carlos Facility:[facility] [place] Start: 06-01-2024 End: 06-01-2024 ambulatory Millie L Carlos Facility:[facility] [place] Start: 05-29-2024 End: 05-29-2024 ambulatory Millie L Carlos Facility:[facility] [place] Start: 05-27-2024 End: 05-27-2024 ambulatory MD Luisito Roth Work Phone: [facility] Work Phone: Start: 05-27-2024 End: 05-27-2024 Patient encounter procedure MD Luisito Roth Work Phone: [facility] Work Phone: Start: 05-12-2024 End: 05-12-2024 ambulatory Millie L Carlos Facility:[facility] [place] Start: 04-21-2024 End: 04-21-2024 [facility] Start: 04-19-2024 End: 04-19-2024 ambulatory Millie L Carlos Facility:[facility] [place] Start: 01-20-2024 End: 01-20-2024 ambulatory LARISSA SUTTON Not Available Start: 12-31-2023 End: 12-31-2023 ambulatory LAUREANO AMARAL Not Available Start: 10-29-2023 End: 10-29-2023 Patient encounter procedure PHILLIP NUNEZ [facility] Start: 07-17-2022 End: 07-17-[address] GINA CULVER Facility:[facility] Procedures Date Procedure Procedure Detail Performing Clinician Start: 05-27-2024 X-ray of lumbar spin e, four or more views MD Luisito Roth Work Phone: Start: 04-21-2024 Follow-up visit Follow-up DAVID POLO Start: 12-05-2017 Colonoscopy Addy SHAH LL Abdominal hysterectomy Fredo el NILL Appendectomy PHILLIP NNUEZ Cardiac catheterization Cr ael NILL Cholecystectomy PHILLIP OR TIZ Colonoscopy PHILLIP NUNEZ Comment on above: 01/24 normal repeat 5 years no polyps Dilation and curetta ge of uterus PHILLIP NUNEZ Partial hysterectomy VIMAL NUNEZ Release of trigger finger Mi anand NILL Release of trigger thumb Charlie hanaren NILL Plan of Treatment Date Care Activity Detail Author Start: 04-26-2025 XR Ankle - right 2 Views [facility] Start: 04-26-2025 End: 04-26-2025 [facility] Start: 04-25-2025 [facility] Glucose measurement estimated from glycated hemoglobin [facility] Patient Education [facility] Work Phone: Patient referral [facility] Work Phone: [facility] Immunizations Immunization Date Immunization Notes Care Provider Ginette marques NEGATED: Highlighted row has not occurred!06-01-2024 influenza virus vaccine, unspecified formulation Addy VELA [facility] NEGATED: Highlighted row has not occurred!11-30-2022 influenza virus vaccine, unspecified formulation PHILLIP NUNEZ [facility] NEGATED: Highlighted row has not occurred!11-30-2022 SARS-CoV-2 mRNA (tozinameran 5y-11y) vaccine PHILLIP NUNEZ [facility] Payers Date Payer Category Payer Self-pay [id number] 2024 Unknown [id number] 2023 Unknown [id number] 1959 Unknown [id number] 1955 Unknown [id number] 2.16.84 0.1.831036.3.579.2.593 1955 Unknown [id number] 2.16.84 0.1.542710.3.579.2.1259 1955 Unknown [id number] 2.16.84 0.1.219109.3.579.2.1258 1955 Unknown [id number] 2.16.84 0.1.566957.3.579.2.1258 1955 Unknown [id number] 2.16.84 0.1.878213.3.579.2.1258 1955 Unknown [id number] 2.16.8 40.1.707450.3.579.2. 1955 Unknown [id number] 2.16.8 40.1.457213.3.579.2. 1955 Unknown [id number] 2.16.8 40.1.584254.3.579.2. 1955 Unknown [id number] 2.16.8 40.1.519652.3.579.2. 1955 Unknown [id number] 2.16.8 40.1.071013.3.579.2. 1955 Unknown [id number] 2.16.8 40.1.561945.3.579.2. 1955 Unknown [id number] 2.16.8 40.1.694397.3.579.2. 1955 Unknown [id number] 2.16.8 40.1.955254.3.579.2. 1955 Unknown [id number] 2.16.8 40.1.291934.3.579.2. 1955 Unknown [id number] 2.16.8 40.1.582820.3.579.2 1955 Unknown [id number] 2.16.8 40.1.903228.3.579.2. 1955 Unknown [id number] 2.16.8 40.1.404860.3.579.2.727 1955 Unknown [id number] 2.16.8 40.1.552002.3.579.2.727 1955 Unknown [id number] 2.16.8 40.1.445157.3.579.2.727 1955 Unknown [id number] 2.16.8 40.1.584946.3.579.2.727 1955 Unknown [id number] 2.16.8 40.1.835160.3.579.2.727 1955 Unknown [id number] 2.16.8 40.1.533853.3.579.2.727 1955 Unknown [id number] 2.16.8 40.1.281238.3.579.2.727 Medicare Medicare [id number] [id number] Unknown [id number] 2.16.8 40.1.721506.3.579.2.531 Unknown [id number] 2.16.8 40.1.038074.3.579.2.531 Unknown [id number] 2.16.8 40.1.190267.3.579.2.531 Social History Date Type Detail Facility Start: 10-29-2023 End: 04-26-2025 Tobacco smoking status Never smoked tobacco (finding) [facility] Comment on above: denies use. Tobacco smoking status Never [facility] Comment on above: denies use. Sex Assigned At Female [facility] Start: 1955 Sex Assigned At Female [facility] Sex Female (finding) [facility] Functional Status Date Assessment Result Facility 07-19-2024 Functional Status N/A [facility] [place] 10-29-2023 Functional Status N/A [facility] Clinical Notes 04-19-2024 to 04-23-2025 Note Date & Type Note Facility 04-23-2025 Evaluation note Diagnosis Onset Date Resolution Trimalleolar fracture of right ankle acute April 23 1:13pm [facility] Work Phone: [phone]) 774-266508-06-2025 NotePatient Education Infectious Disease Pharyngitis Pharyngitis is a [...] these instructions at home: Medicines ??? Take jgaz-qxo-vtrgplp and prescription medicines only as told by [...] and water are not available, use hand steel unloader. ??? Do not touch your eyes, nose, [...] right away. Call your local emergency services (553 [place]he [place] ??? Do not wait to see [...] provider. Document Revised: 11/19/2021 Document Reviewed: 11/19/2021 [employer] Patient Education ? 2023 [employer].[facility] 04-09-2025 NoteUT Cardiology [facility] Subjective Florida Bacon is a 69 y.o. year old female patient being seen for 1 year follow up. Patient states she is doing good. Patient denies chest pain, SOB, LEAHY, palpitations/racing heart, dizziness, fatigue, or leg swelling. Patient states she has no complaints. Patient Active Problem List Diagnosis NSTEMI (non-ST elevated myocardial infarction) ([facility]) Gastroenteritis Anxiety Abnormal stress test [...] her presentation is consistent with type II IA (supply/demand mismatch) in setting of acute medical illness Stress test 03/28/2024: Negative treadmill EKG stress test for ischemia, The Colindres Score 5.5 consistent with low risk estimates an annual cardiovascular mortality of 0% and a five year survival of 95% Using the Colindres Sco (more content not included)...[facility]07-18-2025 NoteNurse Consultation Note Reason for Visit Pt presents today for [...] (tocandyeran 5y-11y) vac - Not Given [facility] NoteGeneral Surgery Office/Clinic Note Chief Complaint consultation for colonoscopy HPI [...] swallowing difficulties, no hearing loss, no ear infection(s),no nose bleeds. Cardiovascular: normal blood pressure, no [...] Known Medication Allergies Social (more content not included)...[facility]:Result Comment: Electronically Signed By: LISA MACIAS, Addy Perrin.asaf\Date and Time Signed: 07/19/24 16:15 [id number] NotePatient Education Caregiving Fall Prevention in the Home, [...] Keep items that you use often in pjyb-ca-hvtju places. Lower the shelves around your home [...] the way. ? Do not use floor jamaican or wax that makes floors slippery. What [...] on the stairs. Make sure that the carpetis firmly attached to the stairs. Fix carpet that is loose or worn. What can I do on the outside of my home? ? Use bright outdoor lighting. ? Fix the edges of walkways and driveways and fix any cracks. Clear paths of anything that can makeyou trip, such as tools or rocks. ? Add color or contrast paint or tape to clearly otilio and help you see anything that might make youtrip as you walk through a door, such [...] Control and Prevention, STEADI: cdc.gov ? National Munday on Aging: linda.nih.gov ? National Munday on Aging: linda.nih.gov Contact a doctor if: [...] to replace advice given (more content not included)...[facility]08-16-2024 NoteCardiology Follow Up Progress Note Chief Complaint: Follow-up ([facility] Follow up/Concerns: No further cardiac concerns/symptoms. ) HPI: Florida Bacon is a 68 y.o. female who with a past medical history including overactive bladder, anxiety, vitamin D deficiency, and recent NSTEMI who presents to [place] for post hospitalization follow up. Patient was transferred to [facility] from outside hospital after presenting with complaints of abdominal pain, nausea, vomiting, and diarrhea x 8 times per day. She was found to be dehydrated, and fluid resuscitation was performed. Her troponin was found to be elevated, show she was transferred for further evaluation/management. [facility], patient was found to have a [...] Value Ventricular Rate 67 Atrial Rate 67 AL Interval 142 QRS DURATION 70 QT Interval 448 QTC CALCULATION(BAZETT) 473 P [place] 83 R-[place] -5 T Wave [place] -22 Impression Normal sinus rhythm Possible Inferior [...] Bubble Study Result Date: 03/27/2024 1 1 [facility] Heart Station [address] [place] [address] [phone] (fax) Echocardiogram-[facility] Name: FLORIDA BACON Study Date: 03/27/2024 07:59 AM B/P: 109 mmHg/66 mmHg HR: Date of : 1955 Location: [facility] Height: 61 in. Age: 68 year(s) Patient [...] Due to suboptima (more content not included)... [facility]08-14-2024 NoteNurse Consultation Note Reason for Visit Here for ear wash, [...] (tozinameran 5y-11y) vac - Not Given Patient [facility]uses[facility] HospitalEvaluation + Plan note Future Appointments Appointment Date:04/27/2024 01:00:00 PM Scheduled Provider: Location:[facility] Appointment Type: Medicare Wellness Subsequent [facility] Evaluation + Plan note Future Appointments Appointment Date:06/04/2025 02:30:00 PM Scheduled Provider: Location:[facility] Appointment Type:FM Medicare Wellness Subsequent Future Scheduled Tests Radiology* MA Mamm Screen w/CAD if perf and 3D Dimitri 06/01/24 [facility] [place] Evaluation note* Diagnosis Onset Date Resolution Status Low back pain acute [facility] Work Phone: Evaluation note* Diagnosis Onset Date Resolution Status Admit Date Trimalleolar fracture of rig ht ankle acute April 23 1:13pm [facility] Work Phone: Hospzdwb course Narrative No data available for this section [facility] Hospital Discharge instructions No data available for this section [facility] Hospital Discharge instructions Additional Instructions Dr. Bradley's discharge instructions You are to maintain nonweightbearing to your operative ankle. You should maintain your postoperative splint and keep it clean and dry. You should elevate the injured extremity for the next 48 to 72 hours, as often as possible. You should ice the surgical area, 20 minutes with ice on and then 20 minutes off, for 3 hours a day for the first week. Take your medications as prescribed. You should not operate machinery while taking narcotic pain medications. You may take NSAIDs/Tylenol [id number] as indicated on the bottle. You should take aspirin 81 mg twice daily for 3 weeks for DVT prophylaxis, unless you are already taking anticoagulation which you may resume the day after your surgery. Please abstain from using tobacco products. If you have any increasing pain, fever chills, or abnormal drainage or surgical wound problems you should call the office. Your follow-up should be scheduled with Dr. Bradley's office at [facility]. At your follow-up we will remove your splint and sutures. Please call to confirm your follow-up appointment. Dr. Franco Bradley [facility] [employer] [place] [address] [facility] Work Phone: Progress note No data available for this section [facility] Reason for referral (narrative)No reason for referral information [facility]University [facility] Work Phone: Summary Purpose Family History No Family History Records Found Relationship Condition Age at Onset Recorded Date/T teresa father Pulmonary emphysema Unknown father Unknown mother Unknown Dementia Unknown Hypertension Unknown Relationship Condition Age at Onset Recorded Date/T teresa father Pulmonary emphysema Unknown Unknown mother Dementia Unknown Hypertension Unknown Advance Directives No Advanced Directives Records Found Advance Directive Response Recorded Date/ Time Advance Directives No January 08, 2021 4:12pm Chief Complaint and Reason for Visit Chief Complaint Admit Date ER [facility] RT ANKLE FX WX April 23, 2025 1:13pm Fracture April 24, 2025 2: 50pm Reason for Visit Admit Date Trimalleolar fracture of right ankle Apr us2024 1:13pm Chief Complaint fell on table while cleaning ceiling fan W19.XXXA - Unspecified fall, initial encounter Reason for Visit Low back pain Chief Complaint Admit Date ER [facility] RT ANKLE FX WX April 23, 2025 1:13pm Chief Complaint Admit Date ER [facility] RT ANKLE FX WX April 23, 2025 1:13pm Fracture April 24, 2025 2: 50pm Fracture April 26, 2025 10 :27am Additional Source Comments INFORMATION SOURCE (unrecogn ized section and content) DATE CREATED AUTHOR 07/21/2022 [facility] DATE CREATED AUTHOR AUTHOR'S ORGANIZ ATION 01/23/[address] [facility] DATE CREATED AUTHOR AUTHOR'S ORGANIZ ATION 03/27/2025 Lak[place] Vasyl [facility] DATE CREATED AUTHOR AUTHOR'S ORGANIZ ATION 04/11/2025 [facility] DATE CREATED AUTHOR AUTHOR'S ORGANIZ ATION 04/13/2025 Arcos Vasyl [facility] DATE CREATED AUTHOR AUTHOR'S ORGANIZ ATION 05/05/2025 [facility] Patient Care team informatio n [...] Roth MD Primary Care Provider Active Start: April 23, 2025 End: April 23, 2025 Franco Bradley DO Attending Provider Active S tart: April 23, 2025 End: April 23, 2025 Team Status: Active Member Role Status Dates Millie Gonzalez NP-C Primary Care Provider Active Team Status: Inactive Member Role Status Dates Franco Bradley DO Attending Provider Active S tart: April 24, 2025 End: April 24, 2025 ROBIN Cuevas Primary Care Provider Active Start: April 24, 2025 End: April 24, 2025 Team Status: Active Member Role Status Dates Franco Bradley DO Attending Provider Active S tart: April 26, 2025 Franco Bradley DO Other Provider Active Start : April 26, 2025 Millie Gonzalez NP-C Primary Care Provider Active Start: April 26, 2025 Goals (unrecognized section and content) Goals may [...] BE BASED ON THE PRIMARY CLINICAL RECORDS. [facility] [email or web address] [facility] provides no warranty or guarantee of the accuracy or completeness of information in this document.
== END 2025-05-14 10:12 | disposition home or self-care (01) ==
LOC: RAD 10:11
PROVIDERS: PCP Nurse Practitioner; Visit Provider Orthopaedic Surgery Orthopaedic Trauma
DX: S82.851D Displaced trimalleolar fracture of right lower leg, subsequent encounter for closed fracture with routine healing (principal); Z98.890 Other specified postprocedural states
CPT/HCPCS: 73610

== ENCOUNTER 2025-06-04 09:29 | Outpatient (OUT) | payer OTHER, SELFPAY ==
--- NOTE | 2025-06-04 | XR_ITS ---
The [address] [address] Patient Name: JESS BACON MRN: [id number] date: 1955 Sex: F Assigned Patient Location: [facility] Current Patient Location: [facility] Accession/Order Number: [id number] Exam Date: 06/04/2025 09:40 Report Date: 06/04/2025 10:33 At the request of: WALDO PICKARD DO Procedure: XR ankle RT min 3V RIGHT ANKLE - 3 views COMPARISON: 05/14/2025 AND 04/21/2025 CLINICAL DATA: Follow-up trimalleolar fracture status post fixation AP, lateral and oblique views were obtained. There is osteopenia. A lateral plate and multiple screws are again seen along the distal fibula. There are 2 cannulated screws at the medial malleolus. There is also a syndesmosis screw. The underlying fractures show no change in alignment. The posterior malleolar fracture is better seen on today's lateral view due to positioning. There is no new fracture or dislocation. The talar dome is intact. Posterior and plantar calcaneal spurs are seen. There is still slight soft tissue swelling. XR/XR ankle RT min 3V IMPRESSION: Stable ankle fractures and fixation hardware. Impression dictated by: Tiffanie Wilson M.D. 06/04/2025 10:33 AM Dictation Location: [place] [address] Electronically authenticated by: [id number] Y Date: 06/04/2025 10:33
--- OUTSIDE RECORDS SUMMARY | 2025-06-04 09:31 | XMS_ITS | Clinical Summary ---
Author Organization [facility] Address [address] [place] [address] Care Team Providers Care Nuclear Logging Engineer Name Role Phone Millie Gonzalez CHANCERY CLERK Unavailable Allergies Active Allergy Reactions Criticality Noted [...] Plan of Treatment Not on file Insurance [facility] Care Teams Nuclear Logging Engineer Relationship Specialty Start Date End Date Millie Gonzalez NP [address] [place] [phone] Referring Physician Family Medicine 12/31/23
--- OUTSIDE RECORDS SUMMARY | 2025-06-04 09:31 | XMS_ITS | Clinical Summary ---
Author Organization [facility] Address [address] [place] [address] Care Team Providers Care Ball Thread Machine Tender Name Role Phone Millie Gonzalez CONSULTING DATABASE ADMINISTRATOR-C Primary Care Provider [phone] Allergies No known active allergies Medications oxybutynin [...] n (NSTEMI) 04/09/2025 Overview (04/09/2025): Noted in [facility] page 4, added per outpatient CDI policy. [...] Description 04/09/2025 11:00 AM EDT Office Visit [facility] [place] [address] [place] [address] Farhan Klein MD Myocardial bridge (Primary Dx); Pure hypercholesterolemia from Last 3 Months Family History Relation Name Status Comments Father Mother Social History Tobacco Use Types Packs/Day Years Used Date Smoking Tobacco: Never Smokeless Tobacco: Never Alcohol Use Standard Drinks/Week Comments Yes 0 (1 standard drink = 0.6 oz pur e alcohol) occasional [facility] Utilities Answer Date Recorded In the [...] place to sleep or slept in a custodial (including now)? No 03/25/2024 Hunger Vital Sign [...] 10:58 PM 03/30/2024 2:19 PM Care Teams Ball Thread Machine Tender Relationship Specialty Start Date End Date Millie Gonzalez FNP-C [address] [place] [address] PCP - General Nurse Practitioner 03/26/24
--- OUTSIDE RECORDS SUMMARY | 2025-06-04 09:31 | XMS_ITS | Clinical Summary ---
Author Organization [facility] tem Address [id number] [address] [place] [address] Care Team Providers Care Commercial Account Manager Name Role Phone Millie Gonzalez ALUMINUM CAN COLLECTOR-MUSIC INTERN Primary Care Provider [phone] Allergies No known active allergies Medications cholecalciferol, [...] Not on file Insurance MEDICARE Care Teams Commercial Account Manager Relationship Specialty Start Date End Date Millie Gonzalez, CARLOS-MUSIC INTERN [address] [place] [address] PCP - General Nurse Practitioner 03/19/23
--- OUTSIDE RECORDS SUMMARY | 2025-06-04 14:30 | XMS_ITS ---
Author Name Auto Generated Organization [facility] Care Team Providers Care Costume Designer Name Role Phone Carlos, Millie Gallagher Attending Unavailable INGRID, LIZBETH Poole Attending Unavailable Carlos, Millie Gallagher Attending Unavailable Carlos, Millie Gallagher Attending Unavailable Carlos, Millie Gallagher Attending Unavailable Carlos, Millie Gallagher Admitting Unavailable Carlos, Millie L Attending Unavailable Carlos, Millie L Admitting Unavailable Carlos, Millei Gallagher Attending Unavailable NILL, Addy Koch Attending Unavailable NILL, Addy Koch Attending Unavailable Carlos, Millie L Attending Unavailable Carlos, Millie L Attending Unavailable Carlos, Millie L Attending Unavailable INGRID, LIZBETH A Attending Unavailable Carlos, Millie L Attending Unavailable Carlos, Millie Gallagher Attending Unavailable Franco Bradley A Admitting Unavailable Carlos, Millie Quick Primary Care Unavailable Franco Bradley Attending Unavailable Carlos, Millie Quick Primary Care Unavailable Franco Bradley Attending Unavailable Franco Bradley Admitting Unavailable AUGUST HAYES Attending Unavailable PROBLEMS DATE TYPE CONDITION / CODE ATTENDING STATUS [facility] 04/26/2025 Unknown Displaced trimalleolar fracture of right lower leg, initial encounter for closed fracture / S82.851A(ICD-10) Franco Bradley [facility] 04/24/2025 Unknown Encounter for preprocedural laboratory examination / Z01.812(ICD-10) Franco Bradley [facility] 04/09/2025 Admitting Diagnosis 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 [place] [address] XRay Report Signed Patient: [place] Bacon MR#: [id number] : 1955 Acct:[id number] Age/Sex: 69 / F ADM Date: 04/26/25 Loc: [place] Room: Type: [facility] Attending Dr: Franco Bradley DO [...] Lewis M.D. 04/26/2025 9:18 PM Dictation Location: [place] [address] Transcribed By: [facility] 04/26/252117 Dictated By: Gerald Lewis DO 04/26/252115 Signed By: <Electronically signed by Gerald Lewis DO in OV> 04/26/252117 COMPLETE BLOOD COUNT AUTO DIFF Collected: 04/24/2025 3:22 PM Status: F Source: F [facility] TYPE CODE TESTS RESULT OUT OF RANGE REFERENCE UNITS LAB WBC White Blood Count 9.0 Normal 3.8-11.6 [CFU]/mL LAB UNWBC Uncorrected WBC 9.0 Normal 3.8-11.6 10*3/uL LAB RBC Red Blood Count 4.57 Normal 3.60-5.00 10*6/u L LAB HGB Hemoglobin 13.2 Normal 11.8-15.4 g/dL LAB HCT Hematocrit 39.1 Normal 34.0-46.4 % LAB MCV Mean Corpuscular Volume 85.5 Normal 80-100 fL LAB MCH Mean Corpuscular Hemoglobin 28.8 Normal 24.7-34.3 pg LAB MCHC Mean Corpuscular HGB Conc 33.7 Normal 32.0-35.0 g/dL LAB RDW Red Cell Distribution Width 14.5 Normal 11.9-15.3 % LAB PLT Platelet Count 237 Normal 150-450 10*3/uL LAB MPV Mean Platelet Volume 7.5 Normal 6.3-10.7 fL LAB NE% Neutrophils % (Auto) 76.0 . % LAB LY% Lymphocytes % (Auto) 15.5 . % LAB MO% Monocytes % (Auto) 6.5 . % LAB EO% Eosinophils % (Auto) 1.5 . % LAB BA% Basophils % (Auto) 0.5 . % LAB NRBC% NRBC% 0.0 Normal 0-0.5 /100{WBC} LAB NE# Neutrophils # (Auto) 6.8 Normal 1.8-7.7 10*3/uL LAB LY# Lymphocytes # (Auto) 1.4 Normal 1.00-4.8 10*3/uL LAB MO# Monocytes # (Auto) 0.6 Normal 0.0-0.8 10*3/uL LAB EO# Eosinophils # (Auto) 0.1 Normal 0.0-0.45 10*3/uL LAB BA# Basophils # (Auto) 0.0 Normal 0.0-0.2 10*3/uL Result Comment: PERFORMED BY : [place] [address] PATHOLOGIST SURGICAL SCRUB TECHNICIAN MATT LEIJA M.D. Performed By: #### CBC, EBS A1C, CMP wRFX A1C #### [address] CMP WITH REFLEX TO A1C Collected: 04/24/2025 3:22 PM Status: F Source: [facility] TYPE CODE TESTS RESULT OUT OF RANGE REFERENCE UNITS LAB EBS GLUCOSE Glucose, Employe e SCR 105 High 70-100 mg/dL Result Comment: ADA recommen ded reference range LAB BUN Blood Urea Nitrogen 14 Normal 7-25 mg/d L LAB CREATT Creatinine 0.58 Low 0.60-1.20 mg/dL LAB GFReNR Estimated GFR >60.0 LAB NA Sodium 141 Normal 136-145 mmol/L LAB K Potassium 4.0 Normal 3.5-5.1 mmol/L LAB CL Chloride 104 Normal 98-107 mmol/L LAB CO2 Carbon Dioxide 31.0 Normal 21.0-31.0 mmol/L LAB GAP Anion Gap 10.0 Normal 6.0-15.0 LAB CA Calcium 9.2 Normal 8.6-10.3 mg/dL LAB TP Total Protein 6.3 Low 6.4-8.9 g/dL LAB ALB Albumin Level 4.0 Normal 3.5-5.7 g/dL LAB GLOB Globulin 2.3 g/dL LAB AGRATIO Albumin/Globulin Ratio 1.7 LAB BILIT Bilirubin,Total 0.5 Normal 0.3-1.0 mg/dL LAB AST Aspartate Amino Transferase 32 Normal 13-39 U/L LAB ALT Alanine Aminotransferase 26 Normal 7-52 U/L LAB ALP Alkaline Phosphatase 40 Normal 34-104 U/L Result Comment: PERFORMED BY : [place] [address] PATHOLOGIST SURGICAL SCRUB TECHNICIAN MATT LEIJA M.D. Performed By: #### CBC, EBS A1C, CMP wRFX A1C #### [address] [address] [facility] EBS A1C WITH ESTIMATED AVE GLU Collected: 04/24/2025 3:22 PM Status: F Source: F [facility] TYPE CODE TESTS RESULT OUT OF RANGE REFERENCE UNITS LAB EBS.A1C Hemoglobin A1C 5.4 Normal 4.3-5.6 % Result Comment: Increased ri sk for diabetes: 5.7 - 6.4 diabetes: >6.4 glycemic control for adults with diabetes: <7.0 LAB eAG Estimated Average Glucose 108 mg/dL Result Comment: PERFORMED BY : [address] [address] PATHOLOGIST SURGICAL SCRUB TECHNICIAN MATT LEIJA M.D. Performed By: #### CBC, EBS A1C, CMP wRFX A1C #### [address] [address] [facility] ECG 12 LEAD ECG Observed: 04/24/2025 3:09 PM Status: COMPLETED Source: [facility] ENTER [facility] Main [place] [address] [place], [place] [id number] Electrocardiograph Report Signed Patient: [place] Bacon MR#: [id number] : 1955 Acct:[id number] Age/Sex: 69 / F ADM Date: 04/24/25 Loc: [place] Room: Type: [facility] Attending Dr: Franco Bradley DO Ordering Provider: [...] By Abe Quiles MD 0 04/24/25 1638 PROVIDER LETTER Observed: 04/12/2025 9:43 AM Status: F Source: [facility] Provider Letter April 12, 2025 [place] BACON [address] [place] [phone] : 1955 To Whom It May Concern, Please excuse above patient from work. Date of Illness: From: 04/12/2025 To: 04/15/2025 May Return to Work On: 04/16/2025 Sincerely, Family Medicine [address] [address] PATIENT EDUCATION Observed: 04/11/2025 3:10 PM Status: F Source: [facility] Patient Education Infectious Disease Pharyngitis Pharyngitis is [...] these instructions at home: Medicines ??? Take esnx-kwa-bwffqip and prescription medicines only as told by [...] and water are not available, use hand instructional consultant. ??? Do not touch your eyes, nose, [...] provider. Document Revised: 11/19/2021 Document Reviewed: 11/19/2021 [email or web address] Patient Education ? 2023 [employer]. 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 However, her cholesterol level was previously recorded [...] No qualifying data available Patient Education Pharyngitis, Iqhk-gw-Xglm Problem List/Past Medical History Ongoing Acute bronchitis [...] 5y-11y) vac - Not Given Patient Refuses Result Comment: Electronical ly Signed By: LIZBETH QUINTERO CNP\.br\Date and Time Signed: 04/11/25 19:48 EDT AMBULATORY VISIT SUMMARY Observed: 04/11 2:40 PM Status: F Source: [facility] Ambulatory Visit Summary [place] :1955 Visit Date:04/11/2025 Ambulatory Visit Instructions Your [...] Follow-Up Appointments Wednesday 2:30 PM EDT Where: [place] [address]- Medications What How Much When Why Instructions [...] Misc Prescription (Compression stockings) See instructions BMI 22.0- 22.9, adult Non-smoker wear stocking when on your [...] needed. This condition usually gets better in 3???4 days without treatment. If the infection is caused by a bacteria, you may be need to take antibiotics. Follow these instructions at home: Medicines ??? Take nkxq-thx-xuhcfak and prescription medicines only as told by [...] mouth (gargle) with a salt water mixture 3???4 times a day or as needed. ? To make salt water, dissolve ?1 tsp (3???6 g) of salt in 1 cup (237 mL) of warm water. ? Do not swallow this mixture. ??? Sucking on hard candy or throat lozenges. ??? Putting a cool-mist humidifier in your bedroom at night to moisten the air. ??? Sitting in the bathroom with the door closed for 5???10 minutes while you run hot water in [...] and water are not available, use hand instructional consultant. ??? Do not touch your eyes, nose, [...] provider. Document Revised: 11/19/2021 Document Reviewed: 11/19/2021 [email or web address] Patient Education ??? 2023 [employer] Patient Portal You may access all of your results and other medical record information on our secure patient portal. If you are not signed up for this yet, please contact [employer] at [phone] to get signed up today. Language Information Language assistance services are available as needed. OFFICE VISIT Observed: 04/09/2025 11:00 AM Status: COMPLETED Source: [facility] [id number] [place] Bacon F Date Provider Department Center 04/09/2025 AUGUST LOPEZ [facility] [place] Family History Family Status - Relation Status Age at Mother Father Level of Service:19719 NE OFFICE/OUTPATIENT ESTABLISHED LOW MDM 20 MIN PROGRESS Observed: 04/09/2025 11:00 AM Status: COMPLETED Source: [facility] Cardiology - [place] [facility] Subjective [place] Selby Arleen is a 69 y.o. year old female patient being seen for 1 year follow up. Patient states she is doing good. Patient denies chest pain, SOB, LEAHY, palpitations/racing heart, dizziness, fatigue, or leg swelling. Patient states she has no complaints. Patient Active Problem List Diagnosis NSTEMI (non-ST elevated myocardial infarction) (CMS/HCC) Gastroenteritis Anxiety Abnormal stress test Acute bronchitis [...] her presentation is consistent with type II OR (supply/demand mismatch) in setting of acute medical [...] abnormalities consistent with ischemia, TID index score is 1.05 and No transient ischemia dilatation. ECG 03/26/2024: Normal sinus rhythm Possible Inferior infarct (cited on or before 25-MAR-2024) Abnormal ECG Echocardiogram 03/27/2024: Left Ventricle: The left ventricle is normal [...] of endocardial borders. No significant valvular abnormalities Assessment/Plan Diagnoses and all orders for this visit: Myocardial bridge Comments: LAD Pure hypercholesterolemia She is doing very well from a cardiac perspective. She has a mild LAD myocardial bridge but seems to be very asymptomatic at this point. I reviewed with her the results of the recent blood testing that showed mild elevation of cholesterol. I recommended low-cholesterol diet. Otherwise I will recommend no change in management. Will see her in follow-up in 1 year. Follow up in about 1 year (around 04/09/2026). August Hayes MD LIPID PANEL Collected: 5 10:10 AM Status: F Source: [facility] TYPE CODE TESTS RESULT OUT OF RANGE REFERENCE UNITS LAB [id number](LOINC) Chol 177 Normal 120-200 mg/dL LAB [id number](LOINC) HDL 51 Unknown mg/dL Result Comment: '>= 60 LOW R ISK' '<= 40 HIGH RISK' LAB [id number](LOINC) LDL Direct 118 Normal <=129 mg/dL LAB [id number](LOINC) Trig 70 Normal <=149 mg/dL LAB [id number](LOINC) VLDL 14 Normal 7-40 mg/dL Performed By: #### [id number] # ### [facility] [address] [place] [address] CBC W/ AUTO DIFF Collected: 5 10:10 AM Status: F Source: [facility] TYPE CODE TESTS RESULT OUT OF RANGE REFERENCE UNITS LAB [id number](LOINC) WBC 6.1 Normal 4.0-11.0 E9/L LAB [id number](LOINC) RBC 4.8 Normal 4.3-5.9 E12/L LAB [id number](LOINC) HGB 13.8 Normal 12.0-16.0 gm/dL LAB 23638835(LOINC) Hct 41.0 Normal 34.0-46.0 % LAB [id number](LOINC) RDW 15.1 High 10.9-14.2 % LAB 92949565(LOINC) MCH 29.1 Normal 27.0-34.0 pg LAB 01934078(LOINC) MCHC 33.8 Normal 31.4-36.0 gm/dL LAB [id number](LOINC) MCV 86.3 Normal 80.0-100.0 fL LAB 90463268(LOINC) MPV 7.8 Normal 6.4-10.8 fL LAB [id number](LOINC) Platelet 211.0 Normal 150.0-500.0 E9/ L LAB 05109569(LOINC) Neutro Auto 69.5 Normal 36.0-75.0 % LAB 83032026(LOINC) Lymph Auto 18.6 Normal 14.0-50.0 % LAB 74697820(LOINC) [place] Auto 6.8 Normal 4.0-14.0 % LAB 64209957(LOINC) Eos Auto 4.0 Normal 0.0-8.0 % LAB [id number](LOINC) Basophil Auto 1.1 Normal 0.0-2.0 % LAB [id number](LOINC) Neutro Absolute 4.2 Normal 2.0-7.5 E9/L LAB 29635945(LOINC) Lymph Absolute 1.1 Normal 1.0-4.0 E9/L LAB 82980437(LOINC) [place] Absolute 0.4 Normal 0.2-1.0 E9 /L LAB 94205905(LOINC) Eos Absolute 0.2 Normal 0.0-0.5 E9/ L LAB [id number]([facility]) Basophil Absolute 0.1 Normal 0.0-0.2 E9/L Performed By: #### [id number] # ### [facility] [address] [place] [id number] VITAMIN D 25 HYDROXY Collected: 10:10 AM Status: F Source: [facility] TYPE CODE TESTS RESULT OUT OF RANGE REFERENCE UNITS LAB CD:[id number]([facility]) Vitamin D 25 Hydroxy 52.5 Normal 30.0-100.0 ng/mL Performed By: #### [id number] #### [facility] [address] [place] [address] TSH Collected: 10:10 AM Status: F Source: [facility] TYPE CODE TESTS RESULT OUT OF RANGE REFERENCE UNITS LAB [id number]([facility]) TSH 1.14 Normal 0.34-5.60 mcIU/m L Performed By: #### [id number] # ### [facility] [address] [place] [address] EGFR Collected: 10:10 AM Status: F Source: [facility] TYPE CODE TESTS RESULT OUT OF RANGE REFERENCE UNITS LAB [id number]([facility]) eGFR 93 Normal >=59 mL/min/1 .7 3 m2 Performed By: #### [id number] #### [facility] [address] [place], [place] [id number] CMP Collected: 03/23/2025 10:10 AM Status: F Source: [facility] TYPE CODE TESTS RESULT OUT OF RANGE REFERENCE UNITS LAB [id number]([facility]) Glucose Lvl 73 Normal 55-199 mg/d L LAB 02765668(INC) BUN 25 High 5-21 mg/dL LAB 5673371([facility]) Creatinine 0.7 Normal 0.5-1.3 mg/dL LAB 29435225(INC) Calcium Lvl 9.3 Normal 8.9-11.1 mg/ dL LAB 88137443([facility]) Sodium Lvl 141 Normal 135-145 mmol/ L LAB 07441615(LOINC) Potassium Lvl 4.3 Normal 3.5-5.3 mm ol/L LAB 80792718(INC) Chloride 107 Normal 101-111 mmol/L LAB 18327980(INC) CO2 28 Normal 21-31 mmol/L LAB 12089515([facility]) Alk Phos 37 Normal 21-98 Int._Un it /L LAB 20098020([facility]) Bili Total 0.6 Normal 0.0-1.1 mg/dL LAB 29449054([facility]) Albumin Lvl 4.1 Normal 3.3-5.0 gm/d L LAB 57237375(INC) Total Protein 6.6 Normal 6.0-7.8 gm /dL LAB 41610693([facility]) ALT 22 Normal 6-46 Int._Uni t /L LAB 65949883([facility]) AST 28 Normal 5-43 Int._Uni t /L LAB 73416927([facility]) BUN/Creat Ratio 36 High 10-20 No Units LAB [id number]([facility]) AGAP 10 Normal 6-16 mEq/L LAB 08139759([facility]) Globulin 2.5 Normal 1.4-4.0 gm/dL LAB 43794604([facility]) A/G Ratio 1.6 Normal 1.1-2.2 Performed By: #### [id number] # ### [facility] [address] [place] [address] NURSE CONSULTATION NOTE Observed: 2024 9:56 AM Status: F Source: [facility] Nurse Consultation Note Reason for Visit Pt presents [...] 5y-11y) vac - Not Given Patient Refuses AMBULATORY VISIT SUMMARY Observed: 03/23 9:56 AM Status: F Source: [facility] Ambulatory Visit Summary [place] BACON :1955 Visit [...] Follow-Up Appointments Wednesday 2:30 PM EDT Where: [facility] [address] [address]- Medications What How Much When Why Instructions [...] Misc Prescription (Compression stockings) See instructions BMI 22.0- 22.9, adult Non-smoker wear stocking when on your [...] signed up for this yet, please contact [employer] at [phone] to get signed up today. Language Information Language assistance services are available as needed. PROVIDER LETTER Observed: 02/16/2025 10:14 AM Status: F Source: [facility] Provider Letter February 16, 2025 [place] BACON [address] [place] [phone] : 1955 Dear [place] , We have been trying to reach you with no success. It is important that you return our call regarding your lab draw appointment on February 23, 2025 upon receiving this letter. Also, at the time of your call, please provide us with your current information. Thank you for your prompt attention to this matter. Sincerely, Family Medicine [address] [address] FAMILY MEDICINE OFFICE/CLINI C NOTE Observed: 02/05/2025 1:53 PM Status: F Source: [facility] Medicine Office/Clini c Note HPI Staff complaints of _ pt [...] day(s), # 21 cap(s), Refills(s) 0, Pharmacy: [facility], 158, cm, 02/05/25 14:07:00 EDT, Height/Length Dosing, 52.9, kg, 02/05/25 14:07:00 EDT, Weight Dosing 2. BMI 21.0-21.9, adult (Z68.21: Body mass index [BMI] 21.0-21.9, adult) BMI education Ordered: amoxicillin, 500 mg = 1 cap(s), Oral, TID, X 7 day(s), # 21 cap(s), Refills(s) 0, Pharmacy: [facility], 158, cm, 02/05/25 14:07:00 EDT, [...] 5y-11y) vac - Not Given Patient Refuses Result Comment: Electronical ly Signed By: Millie Florentino\.br\Date and Time Signed: 02/05/25 14:15 EDT AMBULATORY VISIT SUMMARY Observed: 02/05 1:53 PM Status: F Source: [facility] Ambulatory Visit Summary [place] BACON :1955 Visit [...] Follow-Up Appointments Wednesday 9:20 AM EDT Where: [address] [address]- Wednesday 2:30 PM EDT Where: [address] [address]- Medications What How Much When Why Instructions [...] Misc Prescription (Compression stockings) See instructions BMI 22.0- 22.9, adult Non-smoker wear stocking when on your [...] you for choosing us for your care. FAMILY MEDICINE OFFICE/CLINI C NOTE Observed: 01/31/2025 10:12 AM Status: F Source: [facility] Medicine Office/Clini c Note HPI Staff [place] is a 69 [...] daily, # 90 tab(s), Refills(s) 0, Pharmacy: [facility], 158, cm, 12/07/24 14:09:00 EDT, Height/Length Dosing, 51.9, kg, 12/07/24 14:09:00 EDT, Weight Dosing escitalopram, See Instructions, Take 1 tablet by mouth once daily, # 90 tab(s), Refills(s) 0, Pharmacy: [facility], 158, cm, 01/31/25 10:20:00 EDT, Height/Length Dosing, 53.6, kg, 01/31/25 10:20:00 EDT, Weight Dosing fluticasone nasal, 2 spray(s), Nasal, Daily, 16 gram, Refill(s) 0, each nostril, [facility], 158, cm, 08/31/24 14:31:00 EST, Height/Length Dosing, 49.6, kg, 08/31/24 14:31:00 EST, Weight Dosing omeprazole, 40 mg = 1 cap(s), Oral, Daily, X 90 day(s), # 90 cap(s), Refills(s) 3, Pharmacy: [facility], 158, cm, 01/31/25 10:20:00 EDT, Height/Length Dosing, 53.6, kg, 01/31/25 10:20:00 EDT, Weight Dosing omeprazole, 40 mg = 1 cap(s), Oral, Daily, # 90 cap(s), Refills(s) 0, Pharmacy: [facility], 158, cm, 12/07/24 14:09:00 EDT, Height/Length Dosing, 51.9, kg, 12/07/24 14:09:00 EDT, Weight Dosing oxybutynin, See Instructions, Take 1 tablet by mouth once daily, # 90 tab(s), Refills(s) 3, Pharmacy: [facility], 158, cm, 04/06/24 14:41:00 EDT, Height/Length Dosing, 54.1, kg, 04/06/24 14:41:00 EDT, Weight Dosing oxybutynin, 10 mg = 1 tab(s), Oral, Daily, # 90 tab(s), Refills(s) 3, Pharmacy: [facility], 158, cm, 01/31/25 10:20:00 EDT, [...] 5y-11y) vac - Not Given Patient Refuses Result Comment: Electronical ly Signed By: Millie Florentino.br\Date and Time Signed: 01/31/25 10:47 EDT AMBULATORY VISIT SUMMARY Observed: 01/31 10:12 AM Status: F Source: [facility] Ambulatory Visit Summary [place] BAC[place] :1955 Visit [...] Follow-Up Appointments Wednesday 9:20 AM EDT Where: [address] [id number]- Wednesday 2:30 PM EDT Where: [address] [address]- Medications What How Much When Why Instructions [...] Misc Prescription (Compression stockings) See instructions BMI 22.0- 22.9, adult Non-smoker wear stocking when on your [...] you for choosing us for your care. FAMILY MEDICINE OFFICE/CLINI C NOTE Observed: 12/07/2024 1:56 PM Status: F Source: [facility] Family Medicine Office/Clini c Note HPI Staff [place] is a 68 [...] a lot of caffeine. order faxed to [facility] 2. BMI 20.0-20.9, adult (Z68.20: Body [...] oral tablet, See Instructions Flonase 0.05 mg/inh Himrod, 2 spray(s), Nasal, Daily meloxicam 15 mg [...] 5y-11y) vac - Not Given Patient Refuses Result Comment: Electronical ly Signed By: Millie Florentino.br\Date and Time Signed: 12/07/24 14:28 EDT REMINDERS Observed: 09/28/2024 2:17 PM Status: F Source: [facility] Reminders From: Arabella Herrera LPN To: N - Clinical; Sent: 09/28/2024 14:17:59 EST Show up: 08/27/2034 07:00:00 EST Subject: colonoscopy recall Due Date/Time: 09/27/2034 07:00:00 EST Reminder/Recall Patient due for screening colonoscopy 09/27/2034. FAMILY MEDICINE OFFICE/CLINI C NOTE Observed: 08/31/2024 2:46 PM Status: F Source: [facility] Family Medicine Office/Clini c Note HPI Staff [place] is a 68 [...] Daily, 16 gram, Refill(s) 0, each nostril, [facility], 158, cm, 08/31/24 14:31:00 EST, Height/Length Dosing, 49.6, kg, 08/31/24 14:31:00 EST, Weight Dosing Influenza Type A&B POC 00650 Rapid COVID POC 87550 Orders: amoxicillin, 500 mg = 1 cap(s), Oral, TID, X 7 day(s), # 21 cap(s), Refills(s) 0, [facility], 158, cm, 08/31/24 14:31:00 EST, [...] oral tablet, See Instructions Flonase 0.05 mg/inh Himrod, 2 spray(s), Nasal, Daily meloxicam 15 mg [...] 14:43:00) Rapid Covid POC: Negative (08/31/24 14:43:00) Result Comment: Electronical ly Signed By: Millie Florentino\.br\Date and Time Signed: 08/31/24 14:46 EST GENERAL SURGERY OFFICE/CLINI C NOTE Observed: 07/19/2024 4:15 PM Status: F Source: [facility] General Surgery Office/Clini c Note Chief Complaint consultation for colonoscopy HPI [...] lifetime) Tobacco Use:. Never Smokeless Tobacco Use:., 07/19/2024 Family History Emphysema: Father. Schizoaffective disorder: Mother. Immunizations Vaccine Date Status Comments influenza virus vaccine, inactivated - Not Given Patient Refuses influenza virus vaccine, inactivated - Not Given Patient Refuses SARS-CoV-2 mRNA (tocandyeran 5y-11y) vac - Not Given Patient Refuses Result Comment: Electronical ly Signed By: LISA MACIAS, Addy Koch\.br\Date and Time Signed: 07/19/24 16:15 EST AMBULATORY VISIT SUMMARY Observed: 07/19 4:04 PM Status: F Source: [facility] Ambulatory Visit Summary [place] BAC[place] :1955 Visit Date:07/19/2024 Ambulatory Visit Instructions Your Diagnosis Personal history of adenomatous and serrated colon polyps Your Care Team Attending Physician - Addy VELA MD Primary Care Physician - Millie Florentino [...] Follow-Up Appointments Wednesday 2:30 PM EDT Where: [address] [address]- Medications What How Much When Why Instructions [...] Misc Prescription (Compression stockings) See instructions BMI 22.0- 22.9, adult Non-smoker wear stocking when on your [...] you for choosing us for your care. AMBULATORY VISIT SUMMARY Observed: 06/06 2:25 PM Status: F Source: [facility] Ambulatory Visit Summary [place] BAC[place] :1955 Visit [...] Follow-Up Appointments Wednesday 2:30 PM EDT Where: [place] [id number]- Medications What How Much When Why Instructions Unchanged aspirin 81 Milligram By Mouth Every day Unchanged cholecalciferol (Vitamin D3 2000 intl units oral Tab) 50 Microgram By Mouth Every day Unchanged meloxicam (meloxicam 15 mg Tab) See instructions Take 1 tablet by mouth once daily Unchanged Misc Prescription (Compression stockings) See instructions BMI 22.0- 22.9, adult Non-smoker wear stocking when on your [...] you for choosing us for your care. FAMILY MEDICINE OFFICE/CLINI C NOTE Observed: 06/06/2024 2:24 PM Status: F Source: [facility] Family Medicine Office/Clini c Note HPI Staff [place] is a 68 year old female presenting with needing clearance to go back to work RADHA- waiting for MRI - Has not called for them to schedule them Message in chart from consult with Dr Vela in [place] or [place] yesterday- Still has to call back History [...] for malignant neoplasm of breast) order for [facility] provided and faxed Follow-up No qualifying [...] 5y-11y) vac - Not Given Patient Refuses Result Comment: Electronical ly Signed By: Millie Florentino\.br\Date and Time Signed: 06/06/24 14:24 EDT PROVIDER LETTER Observed: 06/06/2024 2:15 PM Status: F Source: [facility] Provider Letter [address] [place] [address] [phone] June 06, [address] [address] : 1955 To Whom It May Concern, Please excuse above patient from work due to injury. Date of Illness: From: 05/29/2024 To: 06/07/2024 May Return to Work On:06/08/2024 Restrictions: No vibrating hand tools Sincerely, JAH Jon PROVIDER LETTER Observed: 06/06/2024 2:11 PM Status: F Source: [facility] Provider Letter [address] [place] [address] [phone] June 06, [address] [address] : 1955 To Whom It May Concern, Please excuse above patient from work due to injury. Date of Illness: From: 05/29/2024 To: 06/07/2024 May Return to Work On:06/08/2024 Restrictions: none Sincerely, JAH Jon CONSENT Observed: 02/08/2024 2:02 PM Status: F Source: [facility] [id number]#1.00TIFF CONSULTATION NOTE Observed: 02/01/2024 2:02 PM Status: F Source: [facility] [id number]#1.00TIFF FORMS Observed: 02/01/2024 2:02 PM Status: F Source: [facility] [id number]#1.00TIFF CONSULTATION NOTE Observed: 11/04/2023 2:02 PM Status: F Source: [facility] [id number]#1.00TIFF PROVIDER LETTER Observed: 09/30/2023 11:41 AM Status: F Source: [facility] (Inserted Image. Unable to d isplay) September 30, 2023 [place] BACON [address] [place] [address] : 1955 To Whom It May Concern, [place] may work 3 days a week, 8 [...] See Above Comments: _ Sincerely, Family Medicine [address] [address] ALLERGIES DATE TYPE / CODE NAME / CODE REACTION SEVERITY SOURCE 04/26/2025 Drug Allergy/786866578(SNO MED CT) No Known Allergies/Z4072512 88(RXNORM) Unknown [facility] SYSTEMIC/012362432(S N OMED CT) NO KNOWN ALLERGIES [facility] Miscellaneous Allergy/755361152(SNO MED CT) No Known Allergies [facility] DR/403718956(SNOMED CT) No Known Medication Allergies [facility] ENCOUNTERS ADMIT/DISCHARGE ACCOUNT NUMBER ADMITTING ENCOUNTER CLASS LOCATION SOURCE 06/04/2025 [id number] [facility] 04/26/2025/04/26/20 25 [id number] Franco Bradley [facility] 04/24/2025/04/24/20 [id number] Franco Bradley [facility] 04/11/2025/04/11/20 [id number] Ambulatory [facility] [place] : CD:[id number] [facility] 04/09/2025/04/09/20 25 [id number] Ambulatory Building:[facility] 03/23/2025 [id number] Millie Gonzalez Ambulatory FTBuilding :FT LAB [facility] 03/23/2025/03/23/20 [id number] Millie Gonzalez Ambulatory FTBuilding :FT LAB [facility] 03/23/2025/03/23/20 25 [id number] Ambulatory [facility]:[facility] : CD:[id number] [facility] 03/08/2025 [id number] Ambulatory FT FM [place] ding:FT [facility] 02/23/2025 [id number] Ambulatory FT [facility] [place] ding:FT [facility] 02/05/2025/02/06/20 25 [id number] Ambulatory FT [facility] [place] ding:FT [facility] 01/31/2025/02/01/20 25 [id number] Ambulatory [facility] [place] ding:FT [facility] 12/07/2024/12/08/19 25 [id number] Ambulatory FT [facility] [place]vueBuil ding:FT [facility] 09/27/2024/09/27/19 25 [id number] Ambulatory CD:[id number]:CD :[id number] [facility] 08/31/2024/08/31/20 24 [id number] Ambulatory FT FM YaimaueBuil ding:FT FM [place] : CD:[id number] [facility] 07/19/2024/07/19/20 [id number] Ambulatory GS KyBuian ding:GS Lorm : Procedure [facility] 06/06/2024/06/06/20 [id number] Ambulatory FT FM KyBuil ding:FT Ky [facility] 11/27/2022 [id number] Ambulatory FT FM BellashleyBuil ding:FT Ky [facility] 04/30/2020 [id number] Ambulatory Nicola ding:[facility] PAYERS ENCOUNTER GUARANTOR PAYER SUBSCRIBER SOURCE 06/04/2025 [place] SANTANAB[facility] ~~(41 (HP) Primary Insurance:MEDICAREPo licy Number: [id number] Date:2023-09-06 [place] CHOI [facility] 04/26/2025 [place] [address]Djr: (HP) Primary Insurance:[employer] [facility] PFFSPolicy Number: [id number] Date:2025-04-23 [place] SantanaB: [id number] [place] [address]Erw: (HP) [facility] 04/26/2025 Secondary Insurance:Self PayPolicy Number: Effective Date:2025-04-23 [facility] [place] [address]Mip: (HP) Primary Insurance:[employer] [facility] PFFSPolicy Number: [id number] Date:2025-04-23 [place] SantanaB: [id number] [place] [address]Drf: (HP) [facility] 04/24/2025 Secondary Insurance:Self PayPolicy Number: Effective Date:2025-04-23 NOT GIVENUNK [facility] 04/11/2025 [place] Selby BINKLEYDOB: ELIAN STTel: ~~(41 (HP) Primary Insurance:MEDICARE DEVOTED HEALTHPolicy Number: [id number] Date:2025-02-05 [place] CHOI [facility] 04/09/2025 Primary Insurance:DEVOTED HEALTHPolicy Number: [id number] Date:2023-09-06 [place] Selby BINKLEYDOB: [id number] [place] [address] [facility] 03/23/2025 [place] P BINKLEYDOB: ELIAN STTel: ~~(41 (HP) Primary Insurance:MEDICAREPo licy Number: [id number] Date:2025-03-23 [place] CHOI [facility] 03/23/2025 [place] P BINKLEYDOB: ELIAN STTel: ~~(41 (HP) Primary Insurance:MEDICARE DEVOTED HEALTHPolicy Number: [id number] Date:2025-02-05 [place] CHOI [facility] 03/08/2025 [place] P BINKLEYDOB: ELIAN STTel: ~~(41 (HP) Primary Insurance:MEDICARE DEVOTED HEALTHPolicy Number: [id number] Date:2025-02-05 [place] CHOI [facility] 02/23/2025 [place] P BINKLEYDOB: ELIAN STTel: ~~(41 (HP) Primary Insurance:MEDICARE DEVOTED HEALTHPolicy Number: [id number] Date:2023-09-06 [place] CHOI [facility] 02/05/2025 [place] P BINKLEYDOB: ELIAN STTel: ~~(41 (HP) Primary Insurance:MEDICARE DEVOTED HEALTHPolicy Number: [id number] Date:2025-02-05 [place] CHOI [facility] 01/31/2025 [place] P BINKLEYDOB: ELIAN STTel: ~~(41 (HP) Primary Insurance:MEDICARE DEVOTED HEALTHPolicy Number: [id number] Date:2023-09-06 [place] CHOI [facility] 12/07/2024 [place] P BINKLEYDOB: ELIAN STTel: ~~(41 (HP) Primary Insurance:AnthemPoli cy Number: [id number] e Date:[id number] [facility] [id number], [place] [address]MH: [place]APANTERA CHOI [facility] 12/07/2024 Secondary Insurance:MEDICARE DEVOTED HEALTHPolicy Number: [id number] Date:2023-09-06 [place] CHOI [facility] 09/27/2024 [place] Selby BINKLEYDOB: ELIAN STTel: ~~(41 (HP) Primary Insurance:AnthemPoli cy Number: [id number] e Date:[id number], [place] [address]EA: [place] CHOI [facility] 09/27/2024 Secondary Insurance:MEDICAREPo licy Number: [id number] Date:2023-09-06 [place] CHOI [facility] 08/31/2024 [place] P BINKLEYDOB: ELIAN STTel: ~~(41 (HP) Primary Insurance:AnthemPoli cy Number: [id number] e Date:1306-65-41PY [facility] [id number], [place] [address]XQ: [place] Selby [facility] 08/31/2024 Secondary Insurance:MEDICAREPo licy Number: [id number] Date:2023-09-06 [place] CHOI [facility] 07/19/2024 [place] P BINKLEYDOB: ELIAN STTel: ~~(41 (HP) Primary Insurance:AnthemPoli cy Number: [id number] e Date:2051-32-43WH [facility] [id number] [place] [address]SC[facility] [place] [facility] Secondary Insurance:MEDICAREPo licy Number: [id number] Date:2023-09-06 [place] CHOI [facility] 06/06/2024 [place] P BINLINDSAYEYDOB: ELIAN STTel: ~~(41 (HP) Primary Insurance:MEDICAREPo licy Number: [id number] Date:2023-09-06 [place] CHOI [facility] 06/06/2024 Secondary Insurance:AnthemPoli cy Number: [id number] e Date:0617-29-98[address], [place] [address]TO: [place] Selby [facility] 11/27/2022 [place] Selby BINLINDSAYEYDOB: ELIAN STTel: ~~(41 (HP) Primary Insurance:MEDICARE DEVOTED HEALTHPolicy Number: [id number] Date:2025-02-05 [place] [facility]
== END 2025-06-04 09:30 | disposition home or self-care (01) ==
LOC: RAD 09:30
PROVIDERS: PCP Nurse Practitioner; Visit Provider Orthopaedic Surgery Orthopaedic Trauma
DX: S82.851D Displaced trimalleolar fracture of right lower leg, subsequent encounter for closed fracture with routine healing (principal)
CPT/HCPCS: 73610

== ENCOUNTER 2025-06-20 12:46 | Outpatient (OUT) | payer OTHER, SELFPAY ==
--- OUTSIDE RECORDS SUMMARY | 2025-06-20 12:49 | XMS_ITS | Patient Health Record ---
Author Organization [facility] Address [address] [place] [address] Care Team Providers Care Gas Mask Assembler Name Role Phone Millie Molina Primary Care Provider Unavail alisha GrijalvaenLizzie Unavailable [phone] Allergies No Known Allergies Reason For Referral No Information Medications Medication SIG (Take, Route, Frequency, Duration) Notes Start Date End Date Status Aspirin 81 81 MG 1 tablet Orally Once a day 06/22/2024 Active oxyBUTYnin Chloride ER 10 MG 1 tablet Orally Once a day 06/22/2024 Active Escitalopram Oxalate 10 MG TAKE 1 TABLET BY MOUTH ONCE DAILY Oral; Duration: 90 days Active Meloxicam 15 MG TAKE 1 TABLET BY HAMMAD TH ONCE DAILY Oral; Duration: 30 days Active Vitamin D3 25 MCG (1000 UT) 2 capsule Or ally twice daily Active Social History Tobacco Use: Social History Observation Description Date Details (start date - stop date) Never Smoker NA - NA Tobacco Use/Smoking Question Answer Notes Patient is a nonsmoker Problems Problem Type SNOMED Code ICD Code Onset Dates Problem Status W/U Status Risk Notes Problem Acquired hallux rigidus (6684491) Hallux rigidus, right foot (M20.21) Active confirmed Problem Pain in right foot (9133173422516 07) Right foot pain (M79.671) Active confirmed Vital Signs Heart Rate 68 /min 06/22/2024 Temperature 98 degrees Fahrenheit 06/22/2024 Respiratory Rate 16 /min 06/22/2024 Oximetry 98 % 06/22/2024 Height 62 in 06/22/2024 Weight 120 lbs 06/22/2024 BMI 21.95 kg/m2 06/22/2024 Encounters Encounter Location Date Provider Diagnosis [facility] (PODIATRY) [address] [place] [address] [place] [address] 06/22/2024 Lizzie Cornejo Other enthesopathies, not elsewhere [...] toe(s) (ICD-10 - M79.674) Plan Of Treatment Pending Test Test Name Order Date XR foot RT min 3V 05/26/2024 Insurance Providers Payer Name Payer Address Payer Phone Subscriber Number Group Number Insured Name Patient Relationship to Insured Coverage Start Date Coverage End Date ANTH MEDICARE ADV PLAN [address] [place] [address] [id number] [place] Desouza Self - patient is the insured [facility] [address] [place] [address] [id number] [place] Desouza Self - patient is the insured Medical (General) History Medical History History ICD Code varicose veins arthritis Surgical History Surgery Date(Month/Year) hysterectomy 2002 appendectomy 2015 cholecystectomy 2012 d&c 1999 varicose veins 2013 Hospitalization History Reason Date(Month/Year) see above
--- OUTSIDE RECORDS SUMMARY | 2025-06-20 12:49 | XMS_ITS | Clinical Summary ---
Author Organization [facility] Address [address] [place] [address] Care Team Providers Care Staff Interpreter Name Role Phone Millie Gonzalez BUSINESS CENTER ATTENDANT Unavailable Allergies Active Allergy Reactions Criticality Noted [...] Plan of Treatment Not on file Insurance [facility] Care Teams Staff Interpreter Relationship Specialty Start Date End Date Millie Gonzalez NP [address] [place] [address] Referring Physician Family Medicine 12/31/23
--- OUTSIDE RECORDS SUMMARY | 2025-06-20 12:49 | XMS_ITS | Clinical Summary ---
Author Organization [employer] [facility] Address [id number] [address] [place] [address] Care Team Providers Care Barrel Drum Cutter Name Role Phone Millie Gonzalez CONTACT LENS BLOCKER AND CUTTER-ORTHOPEDIC PHYSICIAN ASSISTANT Primary Care Provider [phone] Allergies No known active allergies Medications cholecalciferol, [...] Not on file Insurance MEDICARE Care Teams Barrel Drum Cutter Relationship Specialty Start Date End Date Millie Gonzalez, CARLOS-ORTHOPEDIC PHYSICIAN ASSISTANT [address] [place] [address] PCP - General Nurse Practitioner 03/19/23
--- OUTSIDE RECORDS SUMMARY | 2025-06-20 12:49 | XMS_ITS | Encounter Summary ---
Author Organization [facility] Address [address] [place] [address] Care Team Providers Care Felling Bucking Supervisor Name Role Phone Millie Gonzalez HAY BALER Unavailable Encounter Details Date Type Department Care Team (Late st Contact Info) Description 02/04/2023 Abstract NOMJulianna Berg ADIS [address] [facility] [address] [place] [address] Roel Ludwig MD [address] [facility] [address] [place] [address] Social History Tobacco Use Types Packs/Day Years [...] on filedocumented in this encounter Care Teams Felling Bucking Supervisor Relationship Specialty Start Date End Date Millie Gonzalez NP [address] [place] [address] Referring Physician Family Medicine 12/31/23 documented as of this encounter
--- OUTSIDE RECORDS SUMMARY | 2025-06-20 12:49 | XMS_ITS | Clinical Summary ---
Author Organization [facility] Address [address] [place] [address] Care Team Providers Care Costing Manager Name Role Phone Millie Gonzalez SUPERVISOR ROLLING ROOM-C Primary Care Provider [phone] Allergies No known active allergies Medications oxybutynin [...] n (NSTEMI) 04/09/2025 Overview (04/09/2025): Noted in [facility] page 4, added per outpatient CDI [...] Description 04/09/2025 11:00 AM EDT Office Visit [facility] [place] [address] [place] [address] Farhan Klein MD Myocardial bridge (Primary Dx); Pure hypercholesterolemia from Last 3 Months Family History Relation Name Status Comments Father Mother Social History Tobacco Use Types Packs/Day Years Used Date Smoking Tobacco: Never Smokeless Tobacco: Never Alcohol Use Standard Drinks/Week Comments Yes 0 (1 standard drink = 0.6 oz pur e alcohol) occasional [facility] Utilities Answer Date Recorded In the [...] place to sleep or slept in a halfway (including now)? No 03/25/2024 Hunger Vital Sign [...] 10:58 PM 03/30/2024 2:19 PM Care Teams Costing Manager Relationship Specialty Start Date End Date Millie Gonzalez FNP-C [address] [place] [address] PCP - General Nurse Practitioner 03/26/24
--- NOTE | 2025-06-20 12:52 | MM_ITS ---
Patient Name: JESS BACON MR#: [id number] : 1955 Exam Date: 06/20/2025 Ordering Doctor: MELODY SHEA . RADIOLOGY REPORT PROCEDURE: MM TOMOSYNTHESIS SCREENING BI COMPARISON: MM TOMOSYNTHESIS SCREENING BI, 06/07/2024. MM TOMOSYNTHESIS SCREENING BI, 03/16/2023. MG MAMM SCREEN QUEENIE W CAD, 06/06/2019. MG MAMM QUEENIE SCRN W CAD DIG, 04/07/2004. INDICATIONS: Screening Calculator Name NCI Breast Cancer Risk Assessment Tool 5 Year Breast Cancer Risk 2.60% Lifetime Breast Cancer Risk 7.80% Personal Breast Cancer No Personal Ovarian Cancer No Treatments None Family Cancers None LOCATION: [facility] BREAST COMPOSITION: The breasts are heterogeneously dense, which may obscure small masses. FINDINGS: DIAGNOSTIC CATEGORY 1--NEGATIVE. RIGHT BREAST: No significant suspicious finding. LEFT BREAST: No significant suspicious finding. RECOMMENDATIONS: ROUTINE MAMMOGRAM AND CLINICAL EVALUATION IN 12 MONTHS. Dictated by: Liu Lozano MD on 06/20/2025 at 16:34 Approved by: Liu Lozano MD on 06/20/2025 at 16:39
--- OUTSIDE RECORDS SUMMARY | 2025-06-20 12:55 | XMS_ITS | CCD ---
Author Organization [facility] Care Team Providers Care Contact And Service Clerks Supervisor Name Role Phone ABIOLA, DR GINA Berg Primary Care Unavailable PAY, DR ROBLES Admitting Unavailable PAY, DR ROBLES Attending Unavailable IVETTE RICHMOND Consulting Unavailable Millie Gonzalez Primary Care Physician LAUREANO AMARAL Referring Unavailable LAUREANO AMARAL Attending Unavailable LAUREANO AMARAL Referring Unavailable LARISSA SUTTON Attending Unavailable LARISSA SUTTON Referring Unavailable Malcom, HYDRO MECHANIC Zoila Sykes Attending Provider MD Luisito Roth Primary Care Provider AUGUST HAYES Attending Unavailable DAVID POLO Attending Unavailable Luisito Roth MD Primary Care Provider Franco Bradley DO Attending Provider Carlos JALOUSIE INSTALLER-CMillie Primary Care Provider [phone] Franco Bradley DO Other Provider Franco Bradley Admitting Unavailable CarlosMillie avitia Primary Care Unavailable Franco Bradley Attending Unavailable CarlosMillie avitia Primary Care Unavailable Franco Bradley Attending Unavailable Franco Bradley Admitting Unavailable MalcomZoila Attending Unavailable Zoila العراقي Admitting Unavailable Luisito Roth Primary Care Unavailable CarlosMillie Admitting Unavailable Carlos, Millie Gallagher Attending Unavailable NILLAddy Attending Unavailable NILLAddy Attending Unavailable Carlos, Millie Gallagher Attending Unavailable Carlos, Millie Gallagher Attending Unavailable Carlos, Millie Gallagher Attending Unavailable Carlos, Millie Gallagher Attending Unavailable Carlos, Millie Gallagher Attending Unavailable Carlos, Millie Gallagher Attending Unavailable Carlos, Millie Gallagher Attending Unavailable Carlos, Millie Gallagher Attending Unavailable Carlos, Millie Gallagher Attending Unavailable Carlos, Millie Gallagher Attending Unavailable LIZBETH QUINTERO Attending Unavailable Carlos, Millie Gallagher Attending Unavailable Carlos, Millie Gallagher Attending Unavailable CarlosMillie avitia Admitting Unavailable Allergies Allergy Classification Reported Allergen(s) Allergy Type Date of Onset Reaction(s) Facility (2 sources) No Known Medication Allergies; Translations: [No Known Medication Allergies] Propensity to adverse reactions (disorder) [facility] Repository Medications Current Medications Medication Drug Class(es) Dates Sig (Normalized) Sig (Original) aspirin 81 mg delayed release oral tablet (7 sources) Platelet Aggregation Inhibitor, Nonsteroidal Anti-inflammatory Drug [...] day(s), # 5 tab(s), Refills(s) 0, [id number], 158, cm, 10/29/23 13:27:00 EST, Height/Length Dosing, 53, kg, 10/29/23 13:27:00 EST, Weight Dosing Start Date: 10/29/23 Stop Date: 11/03/23 Status: Ordered Cholecalciferol (6 sources) Vitamin D Start: 01-20-2021 take 1 capsule by mouth once daily Cholecalciferol (Vitamin D3) 100 mcg (4,000 unit) Capsule Active 100 MCG PO Daily January 20, 2021 12:00am Complies with drug therapy Start: 01-20-2021 take 1 capsule by mo ut once daily Start: 01-20-2021 take 100 ug by mouth once daily Cholecalciferol (Vitamin D3) Active 100 MCG PO Daily January 20, 2021 12:00am Compression stockings (2 sources) Start: 06-30-2023 Compression stockings Compression stockings, See Instructions, 1 EA, 0, wear stocking when on your feet > 8 hours per day, Supply Start Date: 06/30/23 Status: Ordered escitalopram 5 mg oral tablet (19 sources) Serotonin Reuptake Inhibitor Start: 04-23-2025 take [...] daily, # 90 tab(s), Refills(s) 0, Pharmacy: [id number], 158, cm, 06/06/24 14:02:00 [...] 9:37am May 27, 2024 2:07pm Knee Scooter (3 sources) Start: 04-26-2025 Knee Scooter Active 0 .Route .MEDSUPPLY 1 April 26, 2025 12:00am As directed meloxicam 15 mg oral tablet (7 sources) Nonsteroidal Anti-inflammatory Drug Start: 05-27-2024 take 1 tablet by mouth once daily in the morning Meloxicam 15 mg tablet Active 15 MG PO Every morning May 27, 2024 12:00am Complies with drug therapy Start: 05-27-2024 Meloxicam Acti ve MG PO May 27, 2024 12:00am Pfxsitaypsmz-Bobp-Nfphc Acid (Centrum) 18-400 mg-mcg tablet (4 sources) Start: 04-24-2025 take 1 tablet by mouth once daily Avqhlpejlmvm-Sipc-Jfqbd Acid (Centrum) 18-400 mg-mcg tablet Active 1 TAB PO Daily April 24, 2025 12:00am Complies with drug therapy Start: 04-24-2025 take 1 tablet by mouth once da cyrus omeprazole 40 mg delayed release oral capsule (5 sources) Proton Pump Inhibitor Start: 04-23-2025 take 1 capsule by mouth once daily in the morning Omeprazole 40 mg capsule,delayed release(DR/EC) Active 40 MG PO Every morning April 23, 2025 12:00am Complies with drug therapy 24 hr oxybutynin chloride 10 mg extended release oral tablet (7 sources) Cholinergic Muscarinic Antagonist Start: 05-27-2024 take [...] Sig (Original) amoxicillin 500 mg oral capsule (6 sources) Penicillin-class Antibacterial Start: 02-01-2024 End: 05-27-2024 take 1 capsule by mouth twice daily Amoxicillin 500 mg capsule Discontinued 500 MG PO Twice daily 25 06February 01, 2024 12:00am May 27, 2024 2:06pm benzonatate 200 mg oral capsule (6 sources) Non-narcotic Antitussive Start: 10-25-2023 End: 02-01-2024 Benzonatate 200 mg capsule Discontinued 200 MG PO 2-3 TIMES PER DAY as needed for cough October 25, 2023 1:00am February 01, 2024 9:33am cephalexin 500 mg oral capsule (6 sources) Cephalosporin Antibacterial Start: 10-25-2023 End: 02-01-2024 Cephalexin 500 mg capsule Discontinued MG PO October 25, 2023 1:00am February 01, 2024 9:33am Start: 10-25-2023 End: 02-01-2024 Cephalexin Discontinued MG P O October 25, 2023 1:00am February 01, 2024 9:33am lidocaine 0.05 mg/mg medicated patch (6 sources) Antiarrhythmic, Amide Local Anesthetic Start: 05-27-2024 End: 04-23-2025 apply 1 dose topically once daily as needed for pain Lidocaine 5 % adhesive patch,medicated Discontinued 1 PATCH TOPICAL Daily as needed for pain 15 May 27, 2024 12:00am April 23, 2025 1:47pm leave on most painful area for up to 12 hrs methylPREDNISolone 4 mg oral tablet (12 sources) Corticosteroid Start: 05-27-2024 End: 04-23-2025 Methylprednisolone [...] days oxyCODONE hydrochloride 5 mg oral capsule (5 sources) Opioid Agonist Start: 04-23-2025 End: 04-24-2025 [...] Chronic Chronic obstructive pulmonary disease and bronchiectasis (6 sources) Bronchitis; Translations: [Bronchitis, not specified as acute or chronic] 02-01-2024 Episodic Coronary atherosclerosis and other heart disease (1 source) History of non-ST segment elevation myocardial infarction 05-11-2024 Chronic Comment on above: Noted in RUST page 4 , added per outpatient CDI policy. Disorders of lipid metabolism (2 sources) Pure hypercholesterolemia , unspecified; Translations: [Pure hypercholesterolemia , unspecified] Onset: 04-09-2025 Chronic E Codes: Fall (6 sources) Fall; Translations: [Unspecified fall, initial encounter] 05-27-2024 Episodic Fracture of lower limb (14 sources) Displaced trimalleolar fracture of right lower leg, initial encounter for closed fracture; Translations: [Trimalleolar fracture of right ankle] Onset: 04-26-2025 04-23-2025 Episodic Gastritis and duodenitis (1 source) Gastritis 04-06-2024 Episodic Immunizations and screening for infectious disease (6 sources) Contact with and (suspected) exposure to other viral communicable diseases; Translations: [Contact with or exposure to other viral diseases] 02-01-2024 Episodic Mycoses (2 sources) Onychomycosis 11-27-2022 Episodic Nutritional deficiencies (6 sources) Vitamin D deficiency; Translations: [Vitamin D [...] conditions (not mental disorders or infectious disease) (6 sources) Patient encounter status; Translations: [Encounter for screening for malignant neoplasm of colon] 08-18-2023 Episodic Comment on above: Problem List clean-u p per request of Phys. EHR Cmte Other skin disorders (2 sources) Ingrowing great toenail 09-30-2023 Episodic Other upper respiratory infections (11 sources) Acute frontal sinusitis, unspecified; Translations: [Acute frontal sinusitis] Onset: 10-29-2023 Episodic Otitis media and related conditions (7 sources) Acute bilateral otitis media ; Translations: [Otitis media, unspecified, bilateral] 02-01-2024 Episodic Residual codes; unclassified (6 sources) Postprocedural state finding; Translations: [Other specified postprocedural states] 04-26-2025 Episodic Spondylosis; intervertebral disc disorders; other back problems (4 sources) Lumbosacral spondylosis; Translations: [Spondylosis] 11-27-2022 Chronic Spondylosis; intervertebral disc disorders; other back problems (9 sources) Low back pain; Translations: [Low back pain] 05-27-2024 Episodic Syncope (2 sources) Syncope 11-27-2022 Episodic Unclassified (4 sources) Patient encounter status 03-03-2023 Unclassified (1 source) Body mass index 20-24 - normal 06-01-2024 Unclassified (1 source) Low back pain, unspecified; Translations: [Low back pain, unspecified] Onset: 05-27-2024 Results Test Name Value Interpretation Reference Range Facility Ambulatory Visit Summaryon 1 Ambulatory Visit Summary Ambulatory Visi t Summary FLORIDA BACON :1955 Visit Date:06/15/2025 Ambulatory Visit Instructions Your Diagnosis BMI 20.0-20.9, adult Your Care Team Attending Physician - Millie Florentino Primary Care Physician - Millie Florentino This Is Your Medications List aspirin calcium carbonate (calcium (as carbonate) 500 mg oral tablet) cholecalciferol (Vitamin D3 2000 intl units oral Tab) escitalopram (escitalopram 5 mg oral tablet) meloxicam (meloxicam 15 mg Tab) omeprazole (omeprazole 40 mg Cap-DR) oxybutynin (oxybutynin 10 mg ER Tab) Procedures Performed Colonoscopy (09/27/2024), Colonoscopy (12/2017), Abdominal hysterectomy, Appendectomy, Cardiac catheterization, Cholecystectomy, Colonoscopy, D (dilation) and C (curettage) of uterus, Release of trigger finger, Release of trigger thumb. Discharge Vitals Temperature (Temporal Artery) 36.2 ???C Heart Rate (Peripheral) 64 Respiratory Rate 18 Blood Pressure 104/68 Height 158.0 cm Height 62 in Weight 50.5 kg Weight 111.333 lb BMI 20.23 What to do next Scheduled Follow-Up Appointments Wednesday2025 1:20 PM EDT With: Millie Florentino Where: [address] [address]- Wednesday2025 2:30 PM EDT With: Where: [address] [address]- Medications What How Much When Instructions New escitalopram (escitalopram 5 mg oral tablet) See instructions Refills: 3 Take 1 tablet by mouth once daily Pickup at [facility] New omeprazole (omeprazole 40 mg Cap-DR) 1 Capsules By Mouth Every day Duration: 90 Days Refills: 3 Pickup at [facility] Unchanged aspirin 81 Milligram By Mouth Every day Unchanged calcium carbonate (calcium (as carbonate) 500 mg oral tablet) Unchanged cholecalciferol (Vitamin D3 2000 intl units oral Tab) 50 Microgram By Mouth Every day Unchanged meloxicam (meloxicam 15 mg Tab) See instructions Take 1 tablet by mouth once daily Unchanged oxybutynin (oxybutynin 10 mg ER Tab) 1 Tablets By Mouth Every day Pharmacy Information [facility]: [address] [place], [place] [id number] [phone] Allergies No Known Allergies No Known Medication Allergies Problems Ongoing - Any problem that you are currently receiving treatment for. Anxiety disorder BMI 20.0-20.9, adult Breast cancer screening by mammogram Dupuytrens contracture Fluid level behind tympanic membrane of both ears Foot pain, right Gastritis History of non-ST elevation myocardial infarction (NSTEMI) History of recent fall Ingrown right big toenail Lower extremity neuropathy Lump of right breast Nonsmoker Onychomycosis Osteoarthritis of lumbosacral spine Pain in lower back Personal history of adenomatous and serrated colon polyps Radiculopathy Right elbow pain Sigmoid diverticulosis Sinusitis Spondylosis Trigger ring finger of right hand Vitamin [...] signed up for this yet, please contact [employer] at [phone] to get signed up today. Language Information Language assistance services are available as needed. Normal [facility] Family Medicine Office/Clini c Noteon 06-15-2025 Family Medicine Office/Clinic Note Family Medicine Office/Clinic Note HPI Staff Pt is here for yearly check Health Maintenance: Colonoscopy: 09/27/24 Dexa: 06/20/25 @ [facility] Mammo: 06/20/25 @ [facility] Pap: last one was 5 years ago Last Labs: March 23 2025 refills needed: all she wants to know how she goes through security now, metal screws and plate in her ankle if she needs to carry a card to prove that she has this History of Present Illness pt presents today for 6 month follow up Review of Systems PHQ Score Initial Depression Screen Score: 0 SCORE Physical Exam Vitals & Measurements T: 36.2 ???C(Temporal Artery) HR: 64(Peripheral) RR: 18 BP: 104/68 SpO2: 100% HT: 158.0 cm HT: 62 in WT: 111.333 lb WT: 50.5 kg BMI: 20.23 General: alert, no acute distress ENMT: oral mucosa moist, no pharyngeal erythema or exudate Cardiovascular: regular rate and rhythm, normal peripheral perfusion Respiratory: Lungs CTA, respirations non labored Extremities: no deformity, no trauma Neurological: oriented x 4, LOC appropriate for age, CN II-XII intact, motor strength equal & normal bilaterally, speech normal Assessment/Plan 1. Mild depression (F32.A: Depression, unspecified) pt feels since she has not been able to be active since her ankle surgery so may be slightly more down than jeancarlos. but is ok with current dose. will send refills. in april her dog knocked her down and fractured her ankle. she had to have hardware placed. she did not go to PT. she has not had to use her walker lately. is hoping to go back to work soon. RTC 6 months 2. Acid reflux (K21.9: Gastro-esophageal reflux disease without esophagitis) omeprazole refilled. 3. BMI 20.0-20.9, adult (Z68.20: Body mass index [BMI] 20.0-20.9, adult) BMI education given Orders: escitalopram, See Instructions, Take 1 tablet by mouth once daily, # 90 tab(s), Refills(s) 3, Pharmacy: [facility], 158, cm, 06/15/25 10:04:00 EDT, Height/Length Dosing, 50.5, kg, 06/15/25 10:04:00 EDT, Weight Dosing escitalopram, See Instructions, Take 1 tablet by mouth once daily, # 90 tab(s), Refills(s) 0, Pharmacy: [facility], 158, cm, 04/11/25 14:59:00 EDT, Height/Length Dosing, 52.9, kg, 04/11/25 14:59:00 EDT, Weight Dosing Misc Prescription, Compression stockings, See Instructions, 1 EA, 0, wear stocking when on your feet > 8 hours per day, Supply omeprazole, 40 mg = 1 cap(s), Oral, Daily, X 90 day(s), # 90 cap(s), Refills(s) 3, Pharmacy: [facility], 158, cm, 01/31/25 10:20:00 EDT, Height/Length Dosing, 53.6, kg, 01/31/25 10:20:00 EDT, Weight Dosing omeprazole, 40 mg = 1 cap(s), Oral, Daily, X 90 day(s), # 90 cap(s), Refills(s) 3, Pharmacy: [facility], 158, cm, 06/15/25 10:04:00 EDT, Height/Length Dosing, 50.5, kg, 06/15/25 10:04:00 EDT, Weight Dosing oxybutynin, 10 mg = 1 tab(s), Oral, Daily, # 90 tab(s), Refills(s) 3, Pharmacy: [facility], 158, cm, 06/15/25 10:04:00 EDT, Height/Length Dosing, 50.5, kg, 06/15/25 10:04:00 EDT, Weight Dosing oxybutynin, 10 mg = 1 tab(s), Oral, Daily, # 90 tab(s), Refills(s) 3, Pharmacy: [facility], 158, cm, 01/31/25 10:20:00 EDT, Height/Length Dosing, 53.6, kg, 01/31/25 10:20:00 EDT, Weight Dosing Follow-up No qualifying data available Problem List/Past Medical History Ongoing Acid reflux Anxiety disorder BMI 20.0-20.9, adult Breast cancer screening by mammogram Dupuytrens contracture Fluid level behind tympanic membrane of both ears Foot pain, right Gastritis History of non-ST elevation myocardial infarction (NSTEMI) History of recent fall Ingrown right big toenail Lower extremity neuropathy Lump of right breast Mild depression Nonsmoker Onychomycosis Osteoarthritis of lumbosacral spine Pain in lower back Personal history of adenomatous and serrated colon polyps Radiculopathy Right elbow pain Sigmoid diverticulosis Sinusitis Spondylosis Trigger ring finger of right hand Vitamin D deficiency Wellness examination Historical Hospital discharge follow-up NSTEMI (non-ST elevated myocardial infarction) Sore throat Procedure/Surgical History Colonoscopy (09/27/2024), Colonoscopy (12/2017), Abdominal hysterectomy, Appendectomy, Cardiac catheterization, Cholecystectomy, Colonoscopy, D (dilation) and C (curettage) of uterus, Release of trigger finger, Release of trigger thumb. Medications aspirin, 81 mg, Oral, Daily calcium (as carbonate) 500 mg oral tablet escitalopram 5 mg oral tablet, See Instructions, 3 refills meloxicam 15 mg Tab, See Instructions omeprazole 40 mg Cap-DR, 40 mg= 1 cap(s), Oral, Daily, 3 refills oxybutynin 10 mg ER Tab, 10 mg= 1 tab(s), Oral, Daily, 3 refills Vitamin D3 2000 intl units oral Tab, 50 mcg, Oral, Daily Allergies No Known Allergies No Known Medication Allergies Social History Alcohol - Denies Alcohol Use, 11/30/2022 Never, 06/04/2025 Substance Abuse - Denies Substance Abuse, 11/30/2022 Never, 06/04/2025 Tobacco - Denies Tobacco Us (more content not included)... Normal [facility] Comment on above: Result Comment: Elec tronically Signed By: Millie Florentino\.br\Date and Time Signed: 06/15/25 10:35 EDT Ambulatory Visit Summaryon 0 06-05-2025 Ambulatory Visit Summary Ambulatory Visi t Summary JERAMIE BACONPANTERA Selby :1955 Visit Date:06/04/2025 Ambulatory Visit Instructions Your Diagnosis Encounter for subsequent annual wellness visit (AWV) in Medicare patient Anxiety disorder Breast cancer screening by mammogram Ovarian failure due to menopause Your Care Team Attending Physician - Millie Florentino Primary Care Physician - Millie Florentino This Is Your Medications List Misc Prescription (Compression stockings) aspirin calcium carbonate (calcium (as carbonate) 500 mg oral tablet) cholecalciferol (Vitamin D3 2000 intl units oral Tab) escitalopram (escitalopram 5 mg oral tablet) meloxicam (meloxicam 15 mg Tab) omeprazole (omeprazole 40 mg Cap-DR) oxybutynin (oxybutynin 10 mg ER Tab) Procedures Performed Colonoscopy (09/27/2024), Colonoscopy (12/2017), Abdominal hysterectomy, Appendectomy, Cardiac catheterization, Cholecystectomy, Colonoscopy, D (dilation) and C (curettage) of uterus, Release of trigger finger, Release of trigger thumb. Discharge Vitals Heart Rate (Peripheral) 80 Blood Pressure 120/60 Height 158 cm Height 62 in Weight 51.2 kg Weight 112.877 lb BMI 20.51 What to do next Scheduled Follow-Up Appointments Wednesday 9:40 AM EDT With: Millie Florentino Where: [facility] [address] [place] [address]- Wednesday2025 2:30 PM EDT With: Where: [place] [id number] You Need to Complete the Following BD Bone Density DEXA, 06/04/25, Routine, Order for Future Visit, Transport Mode: Ambulatory, Reason: Post menopausal, Ovarian failure due to menopause, No, 112, pp_set_radiology_su bspalisa, [facility] [place] Mamm Screen w/CAD if perf and 3D Dimitri, 06/04/25, Routine, Order for Future Visit, Transport Mode: Ambulatory, Reason: Screening, No, Breast cancer screening by mammogram, pp_set_radiology_su [place] [facility] Medications What How Much When Why Instructions Unchanged aspirin 81 Milligram By Mouth Every day Unchanged calcium carbonate (calcium (as carbonate) 500 mg oral tablet) Unchanged cholecalciferol (Vitamin D3 2000 intl units [...] choosing us for your care. Education Materials Health Maintenance After Age 65 After age 65, you are at a higher risk for certain long-term diseases and infections as well as injuries from falls. Falls are a major cause of broken bones and head injuries in people who are older than age 65. Getting regular preventive care can help to keep you healthy and well. Preventive care includes getting regular testing and making lifestyle changes as recommended by your health care provider. Talk with your health care provider about: ??? Which screenings and tests you should have. A screening is a test that checks for a disease when you have no symptoms. ??? A diet and exercise plan (more content not included)... Normal [facility] Family Medicine Office/Clini c Noteon 06-05-2025 Family Medicine Office/Clinic Note Family Medicine Office/Clinic Note Chief Complaint Subsequent Medicare Wellness Review of Systems PHQ Score Initial Depression Screen Score: 0 SCORE Physical Exam Vitals & Measurements HR: 80(Peripheral) BP: 120/60 SpO2: 96% HT: 62 in HT: 158 cm WT: 112.877 lb WT: 51.2 kg BMI: 20.51 Assessment/Plan 1. Encounter for subsequent annual wellness visit (AWV) in Medicare patient (Z00.00: Encounter for general adult medical examination without abnormal findings) The patient was given a customized and personalized print out of all the current AHRQ USPSTF???s recommendations for preventative services and all current CDC recommended immunizations, relevant risk recommendations and the following patient brochures were given. Reviewed Medicare Prevention Services checklist. CDC-Falls Prevention and home safety screening reviewed. Patient reports one injury falls in last 12 months, voices no worry about falling. Patient uses a walker to assist sitting, standing or ambulation. Patient had surgery due to a fall. Patient was released to start putting weight on foot. Patient aware with keeping walk way area free of clutter to prevent tripping and/or falling. [place] Advance Directives reviewed. Documents provided to patient at last AWV. Patient has not yet filled them out. Patient encouraged to bring documents in once completed. Patient denies any problems with ADL???s and Instrumental ADL???s. Cognitive screening completed with memory and clock face drawing. No deficits noted. Patient recited 2/3 memory words. Immunization record reviewed, discussed Shingrix vaccine with educational handout and availability. No COVID vaccines have been administered. Allergies and medications reviewed and up to date. No concerns with taking medication as prescribed. Reviewed OTC medications, medication list up to date. Blood tests were reviewed: UTD. No concerns with bowel/ bladder. Colonoscopy last completed (09/27/2024), due for repeat (10 years). Reviewed pain symptoms: rates pain as a 0 out of 10. Reviewed all outside providers that patient follows. Last visit summary notes available in chart and/or have been requested. Follow up scheduled with PCP, 06/15/2025 AWV has been scheduled, 06/04/2026 Medicare provides yearly screening for alcohol and depression concerns. This is completed during our Medicare Wellness Visit for those who do not have a current diagnosis of depression or concerns with alcohol use. I spent a total of 12 minutes on this date of service which included preparing to see the patient, face to face patient care, completing clinical documentation, obtaining and/or reviewing separately obtained history, counseling, and educating the patient with handouts. Explanations were provided with reviewing questionnaires. AUDIT risk assessment screening completed, risk score 1 with patient denying concerns with use. Completed PHQ-2 risk assessment for depression with risk score 0, negative findings. Patient has been reminded to notify the provider if there would be a change or concerns with symptoms with fear, unable to sleep, worrying too much, or feeling down and/or sad with lost of interest with daily activities. Will continue to monitor with screening yearly during Medicare Wellness Visits. 2. Anxiety disorder (F41.9: Anxiety disorder, unspecified) Patient takes escitalopram daily as directed, voices effectiveness of medication. DOMINGUEZ-7 screening completed today with a score of (2). Follows with PCP as directed for management and symptom control. Denies any suicidal ideations at this time. Education provided, stress management and relaxation techniques reviewed. Will continue to follow with PCP and communicate any changes of increased anxiety. Reviewed additional signs/symptoms to monitor for and report to provider. 3. Breast cancer screening by mammogram (Z12.31: Encounter [...] Mammogram ordered and has been faxed to [facility] per patient request. Pt has been advised no deodorant, sprays or lotions. 4. Ovarian failure due to menopause (E28.39: Other primary ovarian failure) Reviewed recommended bone mineral density testing for women who are 65 years of age or older. Educational handout for Bone Health reviewed and provided to the patient during today's Medicare Wellness visit. Medicare recommends testing every 5 years if results are WNL and every 2 years if results shows low bone mass. This is a deterioration of bone structure and can increase the risk of a fracture with falls. Eating a well-balanced diet with plenty of Calcium and Vitamin D will help to protect your bones. Daily weight-bearing physical activity can (more content not included)... Normal [facility] Comment on above: Result Comment: Elec tronically Signed By: Millie Florentino\.br\Date and Time Signed: 06/05/25 13:03 EDT\.br\Electronically Co-Signed By: Lydia Rodrigues\.br\Date and Time Co-Signed: 06/04/25 15:13 EDT XR ankle RT 2Von 04-26-2025 XR ankle RT 2V [facility] Main [place] [address] [place] [address] XRay Report Signed Patient: [place] Bacon MR#: [id number] [id number] : 1955 Acct:[id number] Age/Sex: 69 / F ADM Date: 04/26/25 Loc: [place] Room: Type: [facility] Attending Dr: Franco Bradley DO Copies to: [...] Lewis M.D. 04/26/2025 9:18 PM Dictation Location: [facility]20 Transcribed By: [facility] 04/26/252117 Dictated By: Gerald Lewis DO 04/26/252115 Signed By: 04/26/252117 Normal [facility] Alanine aminotransferase [En zymatic activity/volume] in Serum or PlasmaOrdered By: Franco Bradley on 04-24-2025 ALT [Catalytic activity/Vol] 26 U/L 7-52 [facility] Comment on above: Performed By: #### C BC, EBS A1C, CMP wRFX A1C #### [facility] [address] Albumin [Mass/volume] in Ser um or Plasma by Bromocresol green (BCG) dye binding methoOrdered By: Franco Bradley on 04-24-2025 Albumin BCG dye [Mass/Vol] 4.0 g/dL 3.5-5.7 [facility] Alkaline phosphatase [Enzyma tic activity/volume] in Serum or PlasmaOrdered By: Franco Bradley on 04-24-2025 ALP [Catalytic activity/Vol] 40 U/L 34-104 [facility] Comment on above: Result Comment: PERF ORMED BY: [place] [address] PATHOLOGIST SCREEN STRETCHER MATT LEIJA M.D. Performed By: #### C BC, EBS A1C, CMP wRFX A1C #### [facility] [address] Aspartate aminotransferase [ Enzymatic activity/volume] in Serum or PlasmaOrdered By: Franco Bradley on 04-24-2025 AST [Catalytic activity/Vol] 32 U/L 13-39 [facility] Comment on above: Performed By: #### C BC, EBS A1C, CMP wRFX A1C #### [address] Basophils [#/volume] in Bloo d by Automated countOrdered By: Franco Bradley on 04-24-2025 Basophils (Bld) [#/Vol] 0.0 10*3/uL 0.0-0.2 [facility] Comment on above: Result Comment: PERF ORMED BY: [place] [address] PATHOLOGIST SCREEN STRETCHER MATT LEIJA M.D. Performed By: #### C BC, EBS A1C, CMP wRFX A1C #### [address] Basophils/100 leukocytes in Blood by Automated countOrdered By: Franco Bradley on 04-24-2025 Basophils/100 WBC (Bld) 0.5 % . [facility] Comment on above: Performed By: #### C BC, EBS A1C, CMP wRFX A1C #### [address] Bilirubin.total [Mass/volume ] in Serum or PlasmaOrdered By: Franco Bradley on 04-24-2025 Bilirubin [Mass/Vol] 0.5 mg/dL 0.3-1.0 [facility] Comment on above: Performed By: #### C BC, EBS A1C, CMP wRFX A1C #### [address] Blood estimated average gluc ose determination by estimation from glycated hemoglobinOrdered By: Franco Bradley on 04-24-2025 Average glucose Estimated from glycated hemoglobin (Bld) [Mass/Vol] 108 mg/dL [facility] CMP with reflex to A1Con Albumin [Mass/Vol] 4.0 g/dL Normal 3.5-5.7 [facility] Comment on above: Performed By: #### C BC, EBS A1C, CMP wRFX A1C #### [place] [address] [place] GFR/1.73 sq M.predicted MDRD (S/P/Bld) [Vol rate/Area] mL/min/{1.73_m2} Normal [facility] Comment on above: Performed By: #### C BC, EBS A1C, CMP wRFX A1C #### [facility] [place] [facility] [address] [place] [address] [place] Calcium [Mass/volume] in Ser um or PlasmaOrdered By: Franco Bradley on 04-24-2025 Calcium [Mass/Vol] 9.2 mg/dL 8.6-10.3 [facility] Comment on above: Performed By: #### C BC, EBS A1C, CMP wRFX A1C #### [address] Carbon dioxide, total [Moles /volume] in Serum or PlasmaOrdered By: Franco Bradley on 04-24-2025 CO2 [Moles/Vol] 31.0 mmol/L 21.0-31.0 [facility] Comment on above: Performed By: #### C BC, EBS A1C, CMP wRFX A1C #### [place] [address] [place] Chloride [Moles/volume] in S omar or PlasmaOrdered By: Franco Bradley on 04-24-2025 Chloride [Moles/Vol] 104 mmol/L 98-107 [facility] Comment on above: Performed By: #### C BC, EBS A1C, CMP wRFX A1C #### [address] Complete Blood Count Auto Di ffon 04-24-2025 Mean Corpuscular HGB Conc 33.7 g/dL Normal 32.0-35.0 [facility] Comment on above: Performed By: #### C BC, EBS A1C, CMP wRFX A1C #### [place] [address] [place] NRBC% 0.0 /100{WBC} Normal 0-0.5 [facility] Comment on above: Performed By: #### C BC, EBS A1C, CMP wRFX A1C #### [address] [place] [address] [place] White Blood Count 9.0 [CFU]/mL Normal 3.8-11.6 [facility] Comment on above: Performed By: #### C BC, EBS A1C, CMP wRFX A1C #### [facility] [place] [facility] [address] [place] [id number] [facility] Creatinine [Mass/volume] in Serum or PlasmaOrdered By: Franco Bradley on 04-24-2025 Creatinine [Mass/Vol] 0.58 mg/dL Low 0.60-1.20 [facility] Comment on above: Performed By: #### C BC, EBS A1C, CMP wRFX A1C #### [facility] [place] [facility] [address] EBS A1C with Estimated Ave Chito cedillon 04-24-2025 Glucose [Mass/Vol] 108 mg/dL Normal [facility] Comment on above: Result Comment: PERF ORMED BY: [place] [address] PATHOLOGIST SCREEN STRETCHER MATT LEIJA M.D. Performed By: #### C BC, EBS A1C, CMP wRFX A1C #### [address] ECG 12 lead ECGon 04-24-2025 ECG 12 lead ECG [facility] Main [place] [address] [place] [address] Electrocardiograph Report Signed Patient: Florida Bacon MR#: [id number] [id number] : 1955 Acct:[id number] Age/Sex: 69 / F ADM Date: 04/24/25 Loc: Room: Type: [facility] Attending Dr: Franco Bradley DO Ordering Provider: [...] Quiles MD 0 04/24/25 1638 Normal [facility] Eosinophils [#/volume] in Bl ood by Automated countOrdered By: Franco Bradley on 04-24-2025 Eosinophils (Bld) [#/Vol] 0.1 10*3/uL 0.0-0.45 [facility] Comment on above: Performed By: #### C BC, EBS A1C, CMP wRFX A1C #### [facility] [address] [place] [address] [place] Eosinophils/100 leukocytes i n Blood by Automated countOrdered By: Franco Bradley on 04-24-2025 Eosinophils/100 WBC (Bld) 1.5 % . [facility] Comment on above: Performed By: #### C BC, EBS A1C, CMP wRFX A1C #### [facility] [address] Erythrocyte distribution wid th [Ratio] by Automated countOrdered By: Franco Bradley on 04-24-2025 Erythrocyte distribution width (RBC) [Ratio] 14.5 % 11.9-15.3 [facility] Comment on above: Performed By: #### C BC, EBS A1C, CMP wRFX A1C #### [facility] [address] [place] [address] [place] Erythrocytes [#/volume] in B lood by Automated countOrdered By: Franco Bradley on 04-24-2025 RBC (Bld) [#/Vol] 4.57 10*6/uL 3.60-5.00 [facility] Comment on above: Performed By: #### C BC, EBS A1C, CMP wRFX A1C #### [facility] [address] Glomerular filtration rate [ Volume Rate/Area] in Serum, Plasma or Blood by CreatinineOrdered By: Franco Bradley on 04-24-2025 Glomerular filtration rate [Volume Rate/Area] in Serum, Plasma or Blood by Creatinine > 60.0 mL/Min [facility] Glucose [Mass/volume] in Ser um or PlasmaOrdered By: Franco Bradley on 04-24-2025 Glucose [Mass/Vol] 105 mg/dL High 70-100 [facility] Comment on above: ADA recommended refe rence range Result Comment: ADA recommended reference range Performed By: #### C BC, EBS A1C, CMP wRFX A1C #### [facility] [place] [facility] [address] Hematocrit [Volume Fraction] of Blood by Automated countOrdered By: Franco Bradley on 04-24-2025 Hematocrit (Bld) [Volume fraction] 39.1 % 34.0-46.4 [facility] Comment on above: Performed By: #### C BC, EBS A1C, CMP wRFX A1C #### [facility] [place] [facility] [address] Hemoglobin A1c measurementOr dered By: Franco Bradley on 04-24-2025 HbA1c (Bld) [Mass fraction] 5.4 % 4.3-5.6 [facility] Comment on above: Increased risk for d iabetes: 5.7 - 6.4diabetes: >6.4glycemic control for adults with diabetes: <7.0 Result Comment: Incr eased risk for diabetes: 5.7 - 6.4 diabetes: >6.4 glycemic control for adults with diabetes: <7.0 Performed By: #### C BC, EBS A1C, CMP wRFX A1C #### [facility] [place] [facility] [address] Hemoglobin [Mass/volume] in BloodOrdered By: Franco Bradley on 04-24-2025 Hemoglobin (Bld) [Mass/Vol] 13.2 g/dL 11.8-15.4 [facility] Comment on above: Performed By: #### C BC, EBS A1C, CMP wRFX A1C #### [facility] [place] [facility] [address] [place] [address] [place] Leukocytes [#/volume] correc bonifacio for nucleated erythrocytes in Blood by Automated counOrdered By: Franco Bradley on 04-24-2025 WBC corrected for nucl RBC Auto (Bld) [#/Vol] 9.0 10*3/uL 3.8-11.6 [facility] Leukocytes [#/volume] in Blo od by Automated countOrdered By: Franco Bradley on 04-24-2025 WBC (Bld) [#/Vol] 9.0 10*3/uL 3.8-11.6 [facility] Comment on above: Performed By: #### C BC, EBS A1C, CMP wRFX A1C #### [facility] [address] [place] [address] [place] Lymphocytes [#/volume] in Bl ood by Automated countOrdered By: Franco Bradley on 04-24-2025 Lymphocytes (Bld) [#/Vol] 1.4 10*3/uL 1.00-4.8 [facility] Comment on above: Performed By: #### C BC, EBS A1C, CMP wRFX A1C #### [facility] [address] [place] [address] [place] Lymphocytes/100 leukocytes i n Blood by Automated countOrdered By: Franco Bradley on 04-24-2025 Lymphocytes/100 WBC (Bld) 15.5 % . [facility] Comment on above: Performed By: #### C BC, EBS A1C, CMP wRFX A1C #### [facility] [address] [place] [address] [place] MCH [Entitic mass] by Automa bonifacio countOrdered By: Franco Bradley on 04-24-2025 MCH (RBC) [Entitic mass] 28.8 pg 24.7-34.3 [facility] Comment on above: Performed By: #### C BC, EBS A1C, CMP wRFX A1C #### [facility] [address] [place] [address] [place] MCHC Auto (RBC) [Mass/Vol]Or dered By: Franco Bradley on 04-24-2025 MCHC (RBC) [Mass/Vol] 33.7 g/dL 32.0-35.0 [facility] MCV [Entitic volume] by Auto mated countOrdered By: Franco Bradley on 04-24-2025 MCV (RBC) [Entitic vol] 85.5 fL 80-100 [facility] Comment on above: Performed By: #### C BC, EBS A1C, CMP wRFX A1C #### [facility] [address] [place] [address] [place] Monocytes [#/volume] in Bloo d by Automated countOrdered By: Franco Bradley on 04-24-2025 Monocytes (Bld) [#/Vol] 0.6 10*3/uL 0.0-0.8 [facility] Comment on above: Performed By: #### C BC, EBS A1C, CMP wRFX A1C #### [facility] [address] [place] [address] [place] Monocytes/100 leukocytes in Blood by Automated countOrdered By: Franco Bradley on 04-24-2025 Monocytes/100 WBC (Bld) 6.5 % . [facility] Comment on above: Performed By: #### C BC, EBS A1C, CMP wRFX A1C #### [facility] [address] [place] [address] [place] Neutrophils [#/volume] in Bl ood by Automated countOrdered By: Franco Bradley on 04-24-2025 Neutrophils (Bld) [#/Vol] 6.8 10*3/uL 1.8-7.7 [facility] Comment on above: Performed By: #### C BC, EBS A1C, CMP wRFX A1C #### [facility] [address] [place] [address] [place] Neutrophils/100 leukocytes i n Blood by Automated countOrdered By: Franco Bradley on 04-24-2025 Neutrophils/100 WBC (Bld) 76.0 % . [facility] Comment on above: Performed By: #### C BC, EBS A1C, CMP wRFX A1C #### [facility] [address] [place] [address] No Panel InformationOrdered By: Franco Bradley on 04-24-2025 Pharmacy Creatinine Clearance (Chem N/A [facility] Nucleated erythrocytes [Pres ence] in Blood by Automated countOrdered By: Franco Bradley on 04-24-2025 Nucleated RBC Auto Ql (Bld) 0.0 /100{WBC} 0-0.5 [facility] Platelet mean volume [Entiti c volume] in Blood by Automated countOrdered By: Franco Bradley on 04-24-2025 Platelet mean volume (Bld) [Entitic vol] 7.5 fL 6.3-10.7 [facility] Comment on above: Performed By: #### C BC, EBS A1C, CMP wRFX A1C #### [facility] [address] Platelets [#/volume] in Bloo d by Automated countOrdered By: Franco Bradley on 04-24-2025 Platelets (Bld) [#/Vol] 237 10*3/uL 150-450 [facility] Comment on above: Performed By: #### C BC, EBS A1C, CMP wRFX A1C #### [facility] [place] [facility] [address] [place] [address] [place] Potassium [Moles/volume] in Serum or PlasmaOrdered By: Franco Bradley on 04-24-2025 Potassium [Moles/Vol] 4.0 mmol/L 3.5-5.1 [facility] Comment on above: Performed By: #### C BC, EBS A1C, CMP wRFX A1C #### [address] Protein [Mass/volume] in Ser um or PlasmaOrdered By: Franco Bradley on 04-24-2025 Protein [Mass/Vol] 6.3 g/dL Low 6.4-8.9 [facility] Comment on above: Performed By: #### C BC, EBS A1C, CMP wRFX A1C #### [facility] [address] Serum globulin measurement b y calculation (mass/volume)Ordered By: Franco Bradley on 04-24-2025 Globulin (S) [Mass/Vol] 2.3 g/dL [facility] Comment on above: Performed By: #### C BC, EBS A1C, CMP wRFX A1C #### [facility] [place] [facility] [address] Serum or plasma albumin/glob ulin mass ratioOrdered By: Franco Bradley on 04-24-2025 Albumin/Globulin [Mass ratio] 1.7 {ratio} [facility] Comment on above: Performed By: #### C BC, EBS A1C, CMP wRFX A1C #### [facility] [address] Serum or plasma anion gap de terminationOrdered By: Franco Bradley on 04-24-2025 Anion gap [Moles/Vol] 10.0 mmol/L 6.0-15.0 [facility] Comment on above: Performed By: #### C BC, EBS A1C, CMP wRFX A1C #### [facility] [address] Sodium [Moles/volume] in Ser um or PlasmaOrdered By: Franco Bradley on 04-24-2025 Sodium [Moles/Vol] 141 mmol/L 136-145 [facility] Comment on above: Performed By: #### C BC, EBS A1C, CMP wRFX A1C #### [facility] [address] Urea nitrogen [Mass/volume] in Serum or PlasmaOrdered By: Franco Bradley on 04-24-2025 Urea nitrogen [Mass/Vol] 14 mg/dL 7-25 [facility] Comment on above: Performed By: #### C BC, EBS A1C, CMP wRFX A1C #### [facility] [address] Provider Letteron 04-12-2025 Provider Letter Provider Letter April 12, 2025 [place] BACON [address] [place] [phone] : 1955 To Whom It May Concern, Please excuse above patient from work. Date of Illness: From: 04/12/2025 To: 04/15/2025 May Return to Work On: 04/16/2025 Sincerely, [address] [address] [facility] Ambulatory Visit Summaryon 0 04-11-2025 Ambulatory Visit Summary Ambulatory Visi t Summary FL[place] BACON :1955 Visit Date:04/11/2025 Ambulatory [...] Wednesday 2:30 PM EDT Where: [facility] Family [place] [id number]- Medications What How Much When Why Instructions [...] b (more content not included)... Normal [facility] Medicine Office/Clini c Noteon 04-11-2025 Family [...] high cholesterol, which was noted by her engineer and geologist. However, her cholesterol level was previously recorded [...] No qualifying data available Patient Education Pharyngitis, Cliu-re-Psdz Problem List/Past Medical History Ongoing Acute bronchitis [...] Refuses SA (more content not included)... Normal [facility] Comment on above: Result Comment: Elec tronically Signed By: LIZBTEH QUINTERO CNP\.br\Date and Time Signed: 04/11/25 19:48 EDT Office Visiton 04-09-2025 Follow-up visit [id number] [place] Bacon 1955 F Date Provider Department Center 04/09/2025 AUGUST LOPEZ JOSEMANUEL [place] Family History Family Status - Relation Status Age at Mother Father Level of Service:94250 [place] OFFICE/OUTPATIENT ESTABLISHED LOW MDM 20 MIN Normal [facility] Ambulatory Visit Summaryon 0 03-23-2025 Ambulatory Visit Summary Ambulatory Visi t Summary [place] BACON :1955 Visit Date:03/23/2025 Ambulatory [...] Follow-Up Appointments Wednesday 2:30 PM EDT Where: [place] [id number]- Medications What How Much When Why Instructions [...] signed up for this yet, please contact [employer] at [phone] to get signed up today. Language Information Language assistance services are available as needed. Normal [facility] CBC w/ Auto Diffon 5 Basophil Absolute 0.1 E9/L Normal 0.0-0.2 [facility] Comment on above: Performed By: #### 2 [id number] #### [facility] [address] [place] [address] Basophils/100 WBC (Bld) 1.1 % Normal 0.0-2.0 [facility] Comment on above: Performed By: #### 2 [id number] #### [facility] [address] [place] [address] Eos Absolute 0.2 E9/L Normal 0.0-0.5 [facility] Comment on above: Performed By: #### 2 [id number] #### [facility] [address] [place] [address] Eosinophils/100 WBC (Bld) 4.0 % Normal 0.0-8.0 [facility] Comment on above: Performed By: #### 2 [id number] #### [facility] [address] [place] [address] Erythrocyte distribution width (RBC) [Ratio] 15.1 % High 10.9-14.2 [facility] Comment on above: Performed By: #### 2 720658 #### [facility] [address] [place] [address] Hematocrit (Bld) [Volume fraction] 41.0 % Normal 34.0-46.0 [facility] Comment on above: Performed By: #### 2 [id number] #### [facility] [address] [place] [address] Hemoglobin (Bld) [Mass/Vol] 13.8 g/dL Normal 12.0-16.0 [facility] Comment on above: Performed By: #### 2 [id number] #### [facility] [address] [place] [address] Lymph Absolute 1.1 E9/L Normal 1.0-4.0 [facility] Comment on above: Performed By: #### 2 [id number] #### [facility] [address] [place] [address] Lymphocytes/100 WBC (Bld) 18.6 % Normal 14.0-50.0 [facility] Comment on above: Performed By: #### 2 951000 #### [facility] [address] [place] [address] MCH (RBC) [Entitic mass] 29.1 pg Normal 27.0-34.0 [facility] Comment on above: Performed By: #### 2 835241 #### [facility] [address] [place] [address] MCHC (RBC) [Mass/Vol] 33.8 g/dL Normal 31.4-36.0 [facility] Comment on above: Performed By: #### 2 [id number] #### [facility] [address] [place] [address] MCV (RBC) [Entitic vol] 86.3 fL Normal 80.0-100.0 [facility] Comment on above: Performed By: #### 2 103167 #### [facility] [address] [place] [address] Lamar Absolute 0.4 E9/L Normal 0.2-1.0 [facility] Comment on above: Performed By: #### 2 276997 #### [facility] [address] [place] [address] Monocytes/100 WBC (Bld) 6.8 % Normal 4.0-14.0 [facility] Comment on above: Performed By: #### 2 226651 #### [facility] [address] [place] [address] Neutro Absolute 4.2 E9/L Normal 2.0-7.5 [facility] Comment on above: Performed By: #### 2 [id number] #### [facility] [address] [place] [address] Neutro Auto 69.5 % Normal 36.0-75.0 [facility] Comment on above: Performed By: #### 2 323067 #### [facility] [address] [place] [address] Platelet 211.0 E9/L Normal 150.0-500.0 [facility] Comment on above: Performed By: #### 2 714640 #### [facility] [address] [place] [address] Platelet mean volume (Bld) [Entitic vol] 7.8 fL Normal 6.4-10.8 [facility] Comment on above: Performed By: #### 2 584422 #### [facility] [address] [place] [address] RBC 4.8 E12/L Normal 4.3-5.9 [facility] Comment on above: Performed By: #### 2 740356 #### [facility] [address] [place] [address] WBC 6.1 E9/L Normal 4.0-11.0 [facility] Comment on above: Performed By: #### 2 024245 #### [facility] [address] [place] [address] CMPon 03-23-2025 Albumin [Mass/Vol] 4.1 g/dL Normal 3.3-5.0 [facility] Comment on above: Performed By: #### 2 601140 #### [facility] [address] [place] [address] Albumin/Globulin [Mass ratio] 1.6 {ratio} Normal 1.1-2.2 [facility] Comment on above: Performed By: #### 2 074997 #### [facility] [address] [place] [address] Alk Phos 37 Int._Unit/L Normal 21-98 [facility] Comment on above: Performed By: #### 2 089727 #### [facility] [address] [place] [address] ALT 22 Int._Unit/L Normal 6-46 [facility] Comment on above: Performed By: #### 2 359281 #### [facility] [address] [place] [address] Anion gap [Moles/Vol] 10 mmol/L Normal 6-16 [facility] Comment on above: Performed By: #### 2 064346 #### [facility] [address] [place] [address] AST 28 Int._Unit/L Normal 5-43 [facility] Comment on above: Performed By: #### 2 325706 #### [facility] [address] [place] [address] Bili Total 0.6 mg/dL Normal 0.0-1.1 [facility] Comment on above: Performed By: #### 2 761360 #### [facility] [address] [place] [address] BUN/Creat Ratio 36 No Units High 10-20 [facility] Comment on above: Performed By: #### 2 093402 #### [facility] [address] [place] [address] Calcium [Mass/Vol] 9.3 mg/dL Normal 8.9-11.1 [facility] Comment on above: Performed By: #### 2 292517 #### [facility] [address] [place] [address] Chloride [Moles/Vol] 107 mmol/L Normal 101-111 [facility] Comment on above: Performed By: #### 2 [id number] #### [facility] [address] [place] [address] CO2 [Moles/Vol] 28 mmol/L Normal 21-31 [facility] Comment on above: Performed By: #### 2 [id number] #### [facility] [address] [place] [address] Creatinine [Mass/Vol] 0.7 mg/dL Normal 0.5-1.3 [facility] Comment on above: Performed By: #### 2 [id number] #### [facility] [address] [place] [address] Globulin (S) [Mass/Vol] 2.5 g/dL Normal 1.4-4.0 [facility] Comment on above: Performed By: #### 2 [id number] #### [facility] [address] [place] [address] Glucose [Mass/Vol] 73 mg/dL Normal 55-199 [facility] Comment on above: Performed By: #### 2 [id number] #### [facility] [address] [place] [address] Potassium [Moles/Vol] 4.3 mmol/L Normal 3.5-5.3 [facility] Comment on above: Performed By: #### 2 [id number] #### [facility] [address] [place] [address] Protein [Mass/Vol] 6.6 g/dL Normal 6.0-7.8 [facility] Comment on above: Performed By: #### 2 [id number] #### [facility] [address] [place] [address] Sodium [Moles/Vol] 141 mmol/L Normal 135-145 [facility] Comment on above: Performed By: #### 2 [id number] #### [facility] [address] [place] [address] Urea nitrogen [Mass/Vol] 25 mg/dL High 5-21 [facility] Comment on above: Performed By: #### 2 [id number] #### [facility] [address] [place] [address] Lipid Panelon 03-23-2025 Cholesterol [Mass/Vol] 177 mg/dL Normal 120-200 [facility] [place] [facility] Comment on above: Performed By: #### 2 [id number] #### [facility] [address] [place] [address] Cholesterol in HDL [Mass/Vol] 51 mg/dL Invalid Interpretation Code [facility] Comment on above: Result Comment: '>= 60 LOW RISK' '<= 40 HIGH RISK' Performed By: #### 2 [id number] #### [facility] [address] [place] [address] Cholesterol in LDL [Mass/Vol] 118 mg/dL Normal <=129 [facility] Comment on above: Performed By: #### 2 [id number] #### [facility] [address] [place] [address] Cholesterol in VLDL [Mass/Vol] 14 mg/dL Normal 7-40 [facility] Comment on above: Performed By: #### 2 [id number] #### [facility] [address] [place] [address] Triglyceride [Mass/Vol] 70 mg/dL Normal <=149 [facility] Comment on above: Performed By: #### 2 [id number] #### [facility] [address] [place] [address] TSHon 03-23-2025 TSH Qn 1.14 m[IU]/L Normal 0.34-5.60 [facility] Comment on above: Performed By: #### 2 [id number] #### [facility] [address] [place] [address] Vitamin D 25 Hydroxyon 03-23 Vitamin D 25 Hydroxy 52.5 ng/mL Normal 30.0-100.0 [facility] Comment on above: Performed By: #### 5 [id number] #### [facility] [address] [place] [address] eGFRon 03-23-2025 eGFR 93 mL/min/1.73 m2 Normal >=59 [facility] Comment on above: Performed By: #### 1 [id number] #### [facility] [address] [place] [address] Provider Letteron 02-16-2025 Provider Letter Provider Letter February 16, 2025 [place] BACON [address] [place] [id number] : 1955 Dear [place] , We have been trying to reach you with no success. It is important that you return our call regarding your lab draw appointment on February 23, 2025 upon receiving this letter. Also, at the time of your call, please provide us with your current information. Thank you for your prompt attention to this matter. Sincerely, [address] [address] [facility] Ambulatory Visit Summaryon 0 02-05-2025 Ambulatory Visit Summary Ambulatory Visi t Summary FLOR[place] BACON :1955 Visit Date:02/05/2025 Ambulatory [...] Follow-Up Appointments Wednesday 9:20 AM EDT Where: [address] [address]- Wednesday 2:30 PM EDT Where: [place] [address] [place] [address]- Medications What How Much When Why Instructions [...] your care. Lisy Arcos [facility] Medicine Office/Clini c Noteon 02-05-2025 Family Medicine [...] day(s), # 21 cap(s), Refills(s) 0, Pharmacy: [facility], 158, cm, 02/05/25 14:07:00 EDT, Height/Length Dosing, 52.9, kg, 02/05/25 14:07:00 EDT, Weight Dosing 2. BMI 21.0-21.9, adult (Z68.21: Body mass index [BMI] 21.0-21.9, adult) BMI education Ordered: amoxicillin, 500 mg = 1 cap(s), Oral, TID, X 7 day(s), # 21 cap(s), Refills(s) 0, Pharmacy: [facility], 158, cm, 02/05/25 14:07:00 EDT, [...] vac - Not Given Patient Refuses Normal [facility] Comment on above: Result Comment: Elec tronically Signed By: Millie Florentino\.br\Date and Time Signed: 02/05/25 14:15 EDT Ambulatory Visit Summaryon 0 01-31-2025 Ambulatory Visit Summary Ambulatory Visi t Summary [place] BACON :1955 Visit Date:01/31/2025 Ambulatory [...] Follow-Up Appointments Wednesday 9:20 AM EDT Where: [address] [id number]- Wednesday 2:30 PM EDT Where: [address] [address]- Medications What How Much When [...] for choosing us for your care. Normal [facility] Family Medicine Office/Clini c Noteon 01-31-2025 Family [...] daily, # 90 tab(s), Refills(s) 0, [facility], 158, cm, 12/07/24 14:09:00 EDT, Height/Length Dosing, 51.9, kg, 12/07/24 14:09:00 EDT, Weight Dosing escitalopram, See Instructions, Take 1 tablet by mouth once daily, # 90 tab(s), Refills(s) 0, [facility]: [facility], 158, cm, 01/31/25 10:20:00 EDT, Height/Length Dosing, 53.6, kg, 01/31/25 10:20:00 EDT, Weight Dosing fluticasone nasal, 2 spray(s), Nasal, Daily, 16 gram, Refill(s) 0, each nostril, [facility] 1429, 158, cm, 08/31/24 14:31:00 EST, Height/Length Dosing, 49.6, kg, 08/31/24 14:31:00 EST, Weight Dosing omeprazole, 40 mg = 1 cap(s), Oral, Daily, X 90 day(s), # 90 cap(s), Refills(s) 3, Pharmacy: [facility], 158, cm, 01/31/25 10:20:00 EDT, Height/Length Dosing, 53.6, kg, 01/31/25 10:20:00 EDT, Weight Dosing omeprazole, 40 mg = 1 cap(s), Oral, Daily, # 90 cap(s), Refills(s) 0, Pharmacy: [facility], 158, cm, 12/07/24 14:09:00 EDT, Height/Length Dosing, 51.9, kg, 12/07/24 14:09:00 EDT, Weight Dosing oxybutynin, See Instructions, Take 1 tablet by mouth once daily, # 90 tab(s), Refills(s) 3, Pharmacy: [facility] 1429, 158, cm, 04/06/24 14:41:00 EDT, Height/Length Dosing, 54.1, kg, 04/06/24 14:41:00 EDT, Weight Dosing oxybutynin, 10 mg = 1 tab(s), Oral, Daily, # 90 tab(s), Refills(s) 3, Pharmacy: [facility] 1429, 158, cm, 01/31/25 10:20:00 EDT, Height/Length [...] Cholecystectomy, Colonoscop (more content not included)... Normal [facility] Comment on above: Result Comment: Elec [...] a lot of caffeine. order faxed to [facility] 2. BMI 20.0-20.9, adult (Z68.20: Body [...] oral tablet, See Instructions Flonase 0.05 mg/inh [place], 2 spray(s), Nasal, Daily meloxicam 15 mg [...] vac - Not Given Patient Refuses Normal [facility] Comment on above: Result Comment: Elec tronically Signed By: Millie Florentino.asaf\Date and Time Signed: 12/07/24 14:28 EDT Reminderson 09-28-2024 Reminders Reminders -- From: Arabella Herrera LPN To: GSN - Clinical; Sent: 09/28/2024 14:17:59 EST Show up: 08/27/2034 07:00:00 EST Subject: colonoscopy recall Due Date/Time: 09/27/2034 07:00:00 EST Reminder/Recall Patient due for screening colonoscopy 09/27/2034. Normal [facility] Family Medicine Office/Clini c Noteon 08-31-2024 Family [...] Daily, 16 gram, Refill(s) 0, each nostril, [facility], 158, cm, 08/31/24 14:31:00 EST, Height/Length Dosing, 49.6, kg, 08/31/24 14:31:00 EST, Weight Dosing Influenza Type A&B POC 63475 Rapid COVID POC 75390 Orders: amoxicillin, 500 mg = 1 cap(s), Oral, TID, X 7 day(s), # 21 cap(s), Refills(s) 0, Pharmacy: [facility]29, 158, cm, 08/31/24 14:31:00 [...] oral tablet, See Instructions Flonase 0.05 mg/inh [place], 2 spray(s), Nasal, Daily meloxicam 15 mg [...] Rapid Covid POC: Negative (08/31/24 14:43:00) Normal [facility] Comment on above: Result Comment: Elec tronically Signed By: Millie Florentino\.br\Date and Time Signed: 08/31/24 14:46 EST Ambulatory Visit Summaryon 1 09-18-2023 Ambulatory Visit Summary Ambulatory Visi t Summary [place] BACON :1955 Visit Date:07/19/2024 Ambulatory [...] Follow-Up Appointments Wednesday 2:30 PM EDT Where: [place] [id number]- Medications What How Much When Why Instructions [...] for choosing us for your care. Normal [facility] XR lumbar spine min 4V*on XR lumbar spine min 4V* [facility] Main [place] [address] [place] [address] XRay Report Signed Patient: [place] Bacon MR#: [id number] : 1955 Acct:[id number] Age/Sex: 68 / F ADM Date: 05/27/24 Loc: XDUC Room: Type: [facility] Attending Dr: Zoila العراقي APRN Copies [...] Marinelli Jr., D.O.05/27/2024 2:47 PM Dictation Location: [place] [address] Transcribed By: [facility] 05/27/24 1447 Dictated By: Eleuterio Marinelli Jr, DO 05/27/24 1446 Signed By: 05/27/24 1447 Normal [facility] Follow-Upon 04-21-2024 Follow-Up [id number] [place]ly[place] yin Sola 1955 F Date Provider Department Center 04/21/2024 3848-DAVID POLO [facility] No family history on file Level of Service:75956 [place] OFFICE/OUTPATIENT ESTABLISHED LOW MDM 20 MIN Reason for Visit and Comments: Follow-up [663867] - RUST Follow up Concerns: No further cardiac concerns/symptoms. Normal [facility] Vital Signs Date Time Vital Sign Value Performing Clinician Facility 06-04-2025 09:45-0400 Body height 157.48 cm Luisito Roth MD Work Phone: [facility] 06-04-2025 09:45-0400 Body mass index (BMI) [Ratio] 21.9 kg/m2 Luisito Roth MD Work Phone: [phone] [place] [address] 06-04-2025 09:45-0400 Body weight 54.43 kg Luisito Roth MD Work Phone: [phone] [place] [address] 05-14-2025 10:37-0400 Body height 157.48 cm Luisito Roth MD Work Phone: [facility] 05-14-2025 10:37-0400 Body mass index (BMI) [Ratio] 21.9 kg/m2 Luisito Roth MD Work Phone: [facility] 05-14-2025 10:37-0400 Body weight 54.43 kg Luisito Roth MD Work Phone: [facility] 04-26-2025 18:27-0400 Diastolic blood pressure 69 mm[Hg] Luisito Roth MD Work Phone: [facility] 04-26-2025 18:27-0400 Heart rate 79 /min Luisito Roth MD Work Phone: [facility] 04-26-2025 18:27-0400 Respiratory rate 16 /min Luisito Roth MD Work Phone: [facility] 04-26-2025 18:27-0400 SaO2% (BldA) [Mass fraction] 97 % Luisito Roth MD Work Phone: [facility] 04-26-2025 18:27-0400 Systolic blood pressure 149 mm[Hg] Luisito Roth MD Work Phone: [facility] 04-26-2025 17:50-0400 Body temperature 98.7 [degF] Luisito Roth MD Work Phone: [facility] 04-26-2025 17:23-0400 Inhaled oxygen flow rate 7 L/min Luisito Roth MD Work Phone: [facility] 04-26-2025 11:04-0400 Body height 157.48 cm Luisito Roth MD Work Phone: [facility] 04-26-2025 11:04-0400 Body weight 57 kg Luisito Roth MD Work Phone: [facility] 04-23-2025 13:47-0400 Body height 157.48 cm Luisito Roth MD Work Phone: [facility] 04-23-2025 13:47-0400 Body mass index (BMI) [Ratio] 22.8 kg/m2 Luisito Roth MD Work Phone: [facility] 04-23-2025 13:47-0400 Body weight 56.69 kg Luisito Roth MD Work Phone: [facility] 07-19-2024 15:52-0500 Blood Pressure Location Addy GONZALEZ [facility] 07-19-2024 15:52-0500 Diastolic blood pressure 58 mm[Hg] Addy GONZALEZ [facility] 07-19-2024 15:52-0500 Heart rate 72 /min Addy GONZALEZ [facility] 07-19-2024 15:52-0500 Respiratory rate 16 /min Addy GONZALEZ [facility] 07-19-2024 15:52-0500 Systolic blood pressure 122 mm[Hg] Addy GONZALEZ [facility] 05-27-2024 14:05-0400 Body height 156.21 cm MD Luisito Roth Work Phone: [facility] 05-27-2024 14:05-0400 Body mass index (BMI) [Ratio] 21.4 kg/m2 MD Luisito Roth Work Phone: [facility] 05-27-2024 14:05-0400 Body temperature 98.2 [degF] MD Luisito Roth Work Phone: [facility] 05-27-2024 14:05-0400 Body weight 52.16 kg MD Luisito Roth Work Phone: [facility] 05-27-2024 14:05-0400 Diastolic blood pressure 69 mm[Hg] MD Luisito Roth Work Phone: [facility] 05-27-2024 14:05-0400 Heart rate 56 /min MD Luisito Roth Work Phone: [facility] 05-27-2024 14:05-0400 SaO2% (BldA) [Mass fraction] 98 % MD Luisito Roth Work Phone: [facility] 05-27-2024 14:05-0400 Systolic blood pressure 128 mm[Hg] MD Luisito Roth Work Phone: [facility] 10-29-2023 13:26-0500 Blood Pressure Location PHILLIP NUNEZ [facility] 10-29-2023 13:26-0500 Body temperature 97.88 [degF] PHILLIP NUNEZ [facility] 10-29-2023 13:26-0500 Diastolic blood pressure 80 mm[Hg] PHILLIP NUNEZ [facility] 10-29-2023 13:26-0500 Heart rate 77 /min PHILLIP NUNEZ [facility] 10-29-2023 13:26-0500 SaO2% (BldA) [Mass fraction] 96 % PHILLIP MAYRA [facility] 10-29-2023 13:26-0500 Systolic blood pressure 120 mm[Hg] PHILLIP NUNEZ [facility] Encounters Encounter Date Encounter Type Care Provider Facility Start: 06-04-2026 ambulatory Millie L Carlos Facility: [facility] Start: 12-14-2025 ambulatory Millie L Carlos Facility: [facility] Start: 06-15-2025 End: 06-15-2025 ambulatory Millie L Carlos Facility:[facility] Start: 06-04-2025 End: 06-04-2025 ambulatory Millie L Carlos Facility:[facility] Start: 06-04-2025 End: 06-04-2025 ambulatory Luisito Roth MD Work Phone: [facility] Work Phone: Start: 06-04-2025 End: 06-04-2025 Patient encounter procedure Franco Bradley DO [facility] [place] Work Phone: Start: 05-14-2025 End: 05-14-2025 ambulatory Luisito Roth MD Work Phone: [facility] Work Phone: Start: 05-14-2025 End: 05-14-2025 Patient encounter procedure Franco Bradley DO [facility] [place] Work Phone: Start: 04-26-2025 End: 04-26-2025 ambulatory Franco Bradley Facility:[facility] Start: 04-26-2025 Non-patient / Non-visit Franco quick [facility] Work Phone: Start: 04-24-2025 End: 04-24-2025 Patient encounter procedure Franco Jacobsenynes BOYKIN -Pre-Surgical Testing Work Phone: Start: 04-24-2025 End: 04-24-2025 ambulatory Luisito oRth MD Work Phone: [facility] [place] [facility] Work Phone: Start: 04-24-2025 Encounter for preprocedural laboratory examination Franco Bradley [facility] Start: 04-23-2025 End: 04-23-2025 ambulatory Luisito Roth MD Work Phone: [facility] Work Phone: Start: 04-23-2025 End: 04-23-2025 Patient encounter procedure Franco Poole Mirna -[facility] Work Phone: Start: 04-11-2025 End: 04-11-2025 ambulatory LIZBETH QUINTERO Facility:[facility] Start: 04-09-2025 End: 04-09-2025 ambulatory [facility] Start: 03-23-2025 End: 03-23-2025 ambulatory Millie L Carlos Facility:[facility] Start: 03-08-2025 ambulatory Millie L Carlos Facility: [facility] Start: 02-23-2025 ambulatory Millie L Carlos Facility: [facility] [place] Start: 02-05-2025 End: 02-05-2025 ambulatory Millie L Carlos Facility:[facility] Start: 01-31-2025 End: 01-31-2025 ambulatory Millie L Carlos Facility:[facility] Start: 12-07-2024 End: 12-07-2024 ambulatory Millie L Carlos Facility:[facility] [place] Start: 09-27-2024 End: 09-27-2024 ambulatory Addy GONZALEZ Facility:[id number] Start: 08-31-2024 End: 08-31-2024 ambulatory Millie L Carlos Facility:[facility] [place] Start: 07-19-2024 End: 07-19-2024 ambulatory Addy GONZALEZ [place]: [place] Start: 07-19-2024 End: 07-19-2024 Patient encounter procedure Addy GONZALEZ [facility] Start: 05-27-2024 End: 05-27-2024 ambulatory MD Luisito Roth Work Phone: [facility] [place] [facility] Work Phone: Start: 05-27-2024 End: 05-27-2024 Patient encounter procedure MD Luisito Roth Work Phone: [facility] Work Phone: Start: 04-21-2024 End: 04-21-2024 [facility] Start: 01-20-2024 End: 01-20-2024 ambulatory LARISSA SUTTON Not Available Start: 12-31-2023 End: 12-31-2023 ambulatory LAUREANO AMARAL Not Available Start: 10-29-2023 End: 10-29-2023 Patient encounter procedure PHILLIP NUNEZ [facility] Start: 07-17-2022 End: 07-17-[address] GINA CULVER Facility:[facility] Procedures Date Procedure Procedure Detail Performing Clinician Start: 05-27-2024 X-ray of lumbar spin e, four or more views MD Luisito Roth Work Phone: Start: 04-21-2024 Follow-up visit Follow-up DAVID POLO Start: 12-05-2017 Colonoscopy Addy ZAVALA Abdominal hysterectomy Fredo naren NILL Appendectomy PHILLIP NUNEZ Cardiac catheterization Rc ael NILL Cholecystectomy PHILLIP [place] Colonoscopy PHILLIP NUNEZ Comment on above: 01/24 normal repeat 5 years no polyps Dilation and curetta ge of uterus PHILLIP MAYRA Partial hysterectomy VIMAL LLANESTIZ Release of trigger finger Mi anand NILL Release of trigger thumb Charlie hael NILL Plan of Treatment Date Care Activity Detail Author Start: 04-26-2025 XR Ankle - right 2 Views [facility] Start: 04-26-2025 End: 04-26-2025 [facility] Start: 04-25-2025 [facility] Glucose measurement estimated from glycated hemoglobin [facility] Patient Education [facility] Work Phone: Patient referral [facility] Work Phone: XR Ankle - right GE 3 Views [facility] XR Ankle - right GE 3 Views [facility] Immunizations Immunization Date Immunization Notes Care Provider Ginette marques NEGATED: Highlighted row has not occurred!06-01-2024 influenza virus vaccine, unspecified formulation Addy NAYAKAileen [facility] NEGATED: Highlighted row has not occurred!11-30-2022 influenza virus vaccine, unspecified formulation PHILLIP LLANESTIZ [facility] NEGATED: Highlighted row has not occurred!11-30-2022 SARS-CoV-2 mRNA (tozinameran 5y-11y) vaccine PHILLIP LLANESTIZ [facility] Payers Date Payer Category Payer Private Health Insurance [id number] 2024 Self-pay [id number] 2024 Unknown [id number] 2023 Unknown [id number] 1959 Unknown [id number] 1955 Unknown [id number] 2.16.84 0.1.817205.3.579.2.593 1955 Unknown [id number] 2.16.84 0.1.686922.3.579.2.1259 1955 Unknown [id number] 2.16.84 0.1.020214.3.579.2.1259 1955 Unknown [id number] 2.16.84 0.1.153390.3.579.2.1259 1955 Unknown [id number] 2.16.84 0.1.241231.3.579.2.1259 1955 Unknown [id number] 2.16.8 40.1.868205.3.579.2.72 1955 Unknown [id number] 2.16.8 40.1.581767.3.579.2. 1955 Unknown [id number] 2.16.8 40.1.235306.3.579.2.72 1955 Unknown [id number] 2.16.8 40.1.221596.3.579.2. 1955 Unknown [id number] 2.16.8 40.1.886106.3.579.2.727 1955 Unknown [id number] 2.16.8 40.1.770809.3.579.2.72 1955 Unknown [id number] 2.16.8 40.1.974525.3.579.2.72 1955 Unknown [id number] 2.16.8 40.1.745104.3.579.2.72 1955 Unknown [id number] 2.16.8 40.1.042198.3.579.2.72 1955 Unknown [id number] 2.16.8 40.1.464053.3.579.2.72 1955 Unknown [id number] 2.16.8 40.1.437789.3.579.2.727 1955 Unknown [id number] 2.16.8 40.1.634394.3.579.2.727 1955 Unknown [id number] 2.16.8 40.1.468641.3.579.2.727 1955 Unknown [id number] 2.16.8 40.1.655065.3.579.2.727 1955 Unknown [id number] 2.16.8 40.1.775561.3.579.2.727 Medicare Medicare [id number] Unknown [id number] 2.16.8 40.1.531580.3.579.2.531 Unknown [id number] 2.16.8 40.1.759620.3.579.2.531 Unknown [id number] 2.16.8 40.1.025295.3.579.2.531 Social History Date Type Detail Facility Start: 10-29-2023 End: 04-26-2025 Tobacco smoking status Never smoked tobacco (finding) [facility] Comment on above: denies use. Tobacco smoking status Never [facility] Comment on above: denies use. Sex Assigned At Female [facility] Start: 1955 Sex Assigned At Female [facility] Sex Female (finding) [facility] Medical Equipment Procedure Code Equipment Code Equipment Origin al Text Equipment Identifier Dates ORIF, fracture, ankle Orthopaedic fixation plate, non-bioabsorbable, sterile ()[id number] FDA Start: 04-26-2025 ORIF, fracture, ankle Orthopaedic bone screw, non-bioabsorbable, non-sterile ()[id number] FDA Start: 04-26-2025 ORIF, fracture, ankle Orthopaedic bone screw, non-bioabsorbable, non-sterile ()[id number] FDA Start: 04-26-2025 ORIF, fracture, ankle Orthopaedic bone screw, non-bioabsorbable, non-sterile ()[id number] FDA Start: 04-26-2025 ORIF, fracture, ankle Orthopaedic bone screw, non-bioabsorbable, non-sterile ()[id number] FDA Start: 04-26-2025 ORIF, fracture, ankle Orthopaedic bone screw, non-bioabsorbable, non-sterile ()[id number] FDA Start: 04-26-2025 ORIF, fracture, ankle Orthopaedic bone screw, non-bioabsorbable, non-sterile ()[id number] FDA Start: 04-26-2025 ORIF, fracture, ankle Orthopaedic bone screw, non-bioabsorbable, non-sterile ()[id number] FDA Start: 04-26-2025 ORIF, fracture, ankle Orthopaedic bone screw, non-bioabsorbable, non-sterile ()[id number] FDA Start: 04-26-2025 ORIF, fracture, ankle Orthopaedic bone screw, non-bioabsorbable, non-sterile ()[id number] FDA Start: 04-26-2025 Functional Status Date Assessment Result Facility 07-19-2024 Functional Status N/A [facility] [place] 10-29-2023 Functional Status N/A [facility] Care Clinical Notes 04-21-2024 to 06-04-2025 Note Date & Type Note Facility 06-04-2025 Note Patient Education Mental and Behavioral Health Managing Anxiety, Adult After being diagnosed with anxiety, you may be relieved to know why you have felt or behaved a certain way. You may also feel overwhelmed about the treatment ahead and what it will mean for your life. With care and support, you can manage your anxiety. How to manage lifestyle changes Understanding the difference between stress and anxiety Although stress can play a role in anxiety, it is not the same as anxiety. Stress is your body's reaction to life changes and events, both good and bad. Stress is often caused by something external, such as a deadline, test, or competition. It normally goes away after the event has ended and will last just a few hours. But, stress can be ongoing and can lead to more than just stress. Anxiety is caused by something internal, such as imagining a terrible outcome or worrying that something will go wrong that will greatly upset you. Anxiety often does not go away even after the event is over, and it can become a long-term (chronic) worry. Lowering stress and anxiety Talk with your health care provider or a counselor to learn more about lowering anxiety and stress. They may suggest tension-reduction techniques, such as: ??? Music. Spend time creating or listening to music that you enjoy and that inspires you. ??? Mindfulness-based meditation. Practice being aware of your normal breaths while not trying to control your breathing. It can be done while sitting or walking. ??? Centering prayer. Focus on a word, phrase, or sacred image that means something to you and brings you peace. ??? Deep breathing. Expand your stomach and inhale slowly through your nose. Hold your breath for 3?5 seconds. Then breathe out slowly, letting your stomach muscles relax. ??? Self-talk. Learn to notice and spot thought patterns that lead to anxiety reactions. Change those patterns to thoughts that feel peaceful. ??? Muscle relaxation. Take time to tense muscles and then relax them. Choose a tension-reduction technique that fits your lifestyle and personality. These techniques take time and practice. Set aside 5?15 minutes a day to do them. Specialized therapists can offer counseling and training in these techniques. The training to help with anxiety may be covered by some insurance plans. Other things you can do to manage stress and anxiety include: ??? Keeping a stress diary. This can help you learn what triggers your reaction and then learn ways to manage your response. ??? Thinking about how you react to certain situations. You may not be able to control everything, but you can control your response. ??? Making time for activities that help you relax and not feeling guilty about spending your time in this way. ??? Doing visual imagery. This involves imagining or creating mental pictures to help you relax. ??? Practicing yoga. Through yoga poses, you can lower tension and relax. Medicines Medicines for anxiety include: ??? Antidepressant medicines. These are usually prescribed for long-term daily control. ??? Anti-anxiety medicines. These may be added in severe cases, especially when panic attacks occur. When used together, medicines, psychotherapy, and tension-reduction techniques may be the most effective treatment. Relationships Relationships can play a big part in helping you recover. Spend more time connecting with trusted friends and family members. Think about going to couples counseling if you have a partner, taking family education classes, or going to family therapy. Therapy can help you and others better understand your anxiety. How to recognize changes in your anxiety Everyone responds differently to treatment for anxiety. Recovery from anxiety happens when symptoms lessen and stop interfering with your daily life at home or work. This may mean that you will start to: ??? Have better concentration and focus. Worry will interfere less in your daily thinking. ??? Sleep better. ??? Be less irritable. ??? Have more energy. ??? Have improved memory. Try to recognize when your condition is getting worse. Contact your provider if your symptoms interfere with home or work and you feel like your condition is not improving. Follow these instructions at home: Activity ??? Exercise. Adults should: ? Exercise for at least 150 minutes each week. The exercise should increase your heart rate and make you sweat (moderate-intensity exercise). ? Do strengthening exercises at least twice a week. ??? Get the right amount and quality of sleep. Most adults need 7?9 hours of sleep each night. Lifestyle ??? Eat a healthy diet that includes plenty of vegetables, fruits, whole grains, low-fat dairy products, and lean protein. ? Do not eat a lot of foods that are high in fats, added sugars, or salt (sodium). ??? Make choices that simplify your life. ??? Do not use any products (more content not included)... [facility] 04-23-2025 Evaluation note Diagnosis Onset Date Resolution Trimalleolar fracture of right ankle acute April 23 1:13pm [facility] Work Phone: 1(711) 682-502508-18-2025 Evaluation note* Diagnosis Onset Date Resolution Status Admit Date Trimalleolar fracture of rig ht ankle acute April 23 1:13pm Other specified postprocedur al states acute May 14, 025 10:10am Trimalleolar fracture of rig ht ankle acute May 14 025 10:10am [facility] Work Phone: 1(363) 744-196208-18-2025 Evaluation note* Diagnosis Onset Date Resolution Status Admit Date Trimalleolar fracture of rig ht ankle acute April 23 1:13pm Other specified postprocedur al states acute May 14 10:10am Trimalleolar fracture of rig ht ankle acute May 14 10:10am Other specified postprocedur al states acute June 04, 2025 9:29am Trimalleolar fracture of rig ht ankle acute June 04, 2025 9:29am [facility] Work Phone: 1(555) 126-865508-06-2025 NotePatient Education Infectious Disease Pharyngitis Pharyngitis is [...] these instructions at home: Medicines ??? 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 ??? Do not touch your eyes, nose, [...] away. Call your local emergency services (911 int [place] ??? Do not wait to see [...] provider. Document Revised: 11/19/2021 Document Reviewed: 11/19/2021 [employer] Patient Education ? 2023 [employer].[facility] 04-09-2025 NoteUT Cardiology - [facility] Subjective Florida Bacon is a 69 [...] her presentation is consistent with type II ME (supply/demand mismatch) in setting of acute medical illness Stress test 03/28/2024: Negative treadmill EKG stress test for ischemia, The Colindres Score 5.5 consistent with low risk estimates an annual cardiovascular mortality of 0% and a five year survival of 95% Using the Colindres Sco (more content not included)...[facility]07-18-2025 NoteNurse Consultation Note Reason for Visit Pt [...] (toreginon 5y-11y) vac - Not Given [facility]uses[facility]-13-2024 NoteGeneral Surgery Office/Clinic Note Chief Complaint consultation [...] Known Medication Allergies Social (more content not included)...[facility] Center[facility] on above:Result Comment: Electronically Signed By: LISA MACIAS, Addy Perrin.asaf\Date and Time Signed: 07/19/24 16:15 [id number] NoteCardiology Follow Up Progress Note Chief Complaint: Follow-up ([facility] Follow up/Concerns: No further cardiac concerns/symptoms. ) HPI: Florida Bacon is a 68 y.o. female who with a past medical history including overactive bladder, anxiety, vitamin D deficiency, and recent NSTEMI who presents to [facility] for post hospitalization follow up. Patient was transferred to [facility] from outside hospital after presenting with complaints of abdominal pain, nausea, vomiting, and diarrhea x 8 times per day. She was found to be dehydrated, and fluid resuscitation was performed. Her troponin was found to be elevated, show she was transferred for further evaluation/management. [facility], patient was found to have [...] Value Ventricular Rate 67 Atrial Rate 67 IA Interval 142 QRS DURATION 70 QT Interval 448 QTC CALCULATION(BAZETT) 473 P Kensett 83 R-Kensett -5 T Wave Kensett -22 Impression Normal sinus rhythm Possible Inferior [...] Bubble Study Result Date: 03/27/2024 1 1 [facility] [address] [place] [address] [phone] (fax) Echocardiogram-[facility] Name: FLORIDA BACON Study Date: 03/27/2024 07:59 AM B/P: 109 mmHg/66 mmHg HR: Date of : 1955 Location: [facility] Height: 61 in. Age: 68 year(s) Patient [...] Due to suboptima (more content not included)... [facility] Future Appointments Appointment Date:04/27/2024 01:00:00 PM Scheduled Provider: Location:[facility] Appointment Type: Medicare Wellness Subsequent [facility] Evaluation + Plan note Future Appointments Appointment Date:06/04/2025 02:30:00 PM Scheduled Provider: Location:[facility] Appointment Type: Medicare Wellness Subsequent Future Scheduled Tests Radiology* MA Mamm Screen w/CAD if perf and 3D Dimitri 06/01/24 [facility] [place] Evaluation note* Diagnosis Onset Date Resolution Status Low back pain acute [facility] Work Phone: Evaluation note* Diagnosis Onset Date Resolution Status Admit Date Trimalleolar fracture of rig ht ankle acute April 23 1:13pm [facility] Work Phone: Hospital course Narrative No data available for this section [facility] Hospital Discharge instructions No data available for this section [facility] Hospital Discharge instructions Additional [...] narcotic pain medications. You may take NSAIDs/Tylenol iank-gke-jqikyxa as indicated on the bottle. You should [...] be scheduled with Dr. Bradley's office at [facility]. At your follow-up we will remove your splint and sutures. Please call to confirm your follow-up appointment. Dr. Franco Bradley [facility] [address] [place] [address] [place] [address] [phone] [facility] Work Phone: Progress note No data available for this section [facility] Reason for referral (narrative)No reason for referral information availableCommunity [facility] Work Phone: Summary Purpose Family History No [...] Admit Date Trimalleolar fracture of right ankle Aug ust 2024 1:13pm Chief Complaint fell on table while cleaning ceiling fan W19.XXXA - Unspecified fall, initial encounter Reason for Visit Low back pain Chief Complaint Admit Date ER [facility] RT ANKLE FX WX April 23, 2025 1:13pm Chief Complaint Admit Date ER [facility] RT ANKLE FX WX April 23, 2025 1:13pm Fracture April 24, 2025 2: 50pm Fracture April 26, 2025 10 :27am Chief Complaint Admit Date ER [facility] RT ANKLE FX WX April 23, 2025 1:13pm Fracture April 24, 2025 2: 50pm Fracture April 26, 2025 10 :27am 3 weeks post op May 14, 2025 10:10am Reason for Visit Admit Date Trimalleolar fracture of right ankle Aug ust 2024 1:13pm Other specified postprocedural states Se pt2024 10:10am Trimalleolar fracture of right ankle Sep 2024 10:10am Chief Complaint Admit Date ER TBH RT ANKLE FX WX April 23, 2025 1:13pm Fracture April 24, 2025 2: 50pm Fracture April 26, 2025 10 :27am 3 weeks post op May 14, 2025 10:10am TBH 3 weeks June 04, 2025 9:29am Reason for Visit Admit Date Trimalleolar fracture of right ankle Aug ust 2024 1:13pm Other specified postprocedural states Se pt2024 10:10am Trimalleolar fracture of right ankle Sep tem2024 10:10am Other specified postprocedural states Se ptember 2024 9:29am Trimalleolar fracture of right ankle Sep tem2024 9:29am Additional Source Comments INFORMATION SOURCE (unrecogn ized section and content) DATE CREATED AUTHOR 07/21/2022 [facility] DATE CREATED AUTHOR AUTHOR'S ORGANIZ ATION 01/23/2024 [facility] EPIC DATE CREATED AUTHOR AUTHOR'S ORGANIZ ATION 03/27/2025 [facility] DATE CREATED AUTHOR AUTHOR'S ORGANIZ ATION 04/11/2025 [facility] DATE CREATED AUTHOR AUTHOR'S ORGANIZ ATION 05/05/2025 [facility] DATE CREATED AUTHOR AUTHOR'S ORGANIZ ATION 06/09/2025 [facility] DATE CREATED AUTHOR AUTHOR'S ORGANIZ ATION 06/16/2025 [facility] Patient Care team informatio n (unrecognized [...] Active Member Role Status Dates Millie Gonzalez NP-Mazin Primary Care Provider Active Team Status: Inactive Member Role Status Dates Franco Bradley DO Attending Provider Active S tart: April 24, 2025 End: April 24, 2025 JUAN LUIS CuevasC Primary Care Provider Active Start: April 24, 2025 End: April 24, 2025 Team Status: Active Member Role Status Dates Franco Bradley DO Attending Provider Active S tart: April 26, 2025 Franco Bradley DO Other Provider Active Start : April 26, 2025 Milliejuwan Gonzalez JALOUSIE INSTALLER-C Primary Care Provider Active Start: April 26, 2025 Team Status: Inactive Member Role Status Dates Millie Gonzalez JALOUSIE INSTALLER-C Primary Care Provider Active Start: May 14, 2025 End: May 14, 2025 Franco Bradley DO Attending Provider Active S tart: May 14, 2025 End: May 14, 2025 Team Status: Inactive Member Role Status Dates Millie Gonzalez JALOUSIE INSTALLER-C Primary Care Provider Active Start: June 04, 2025 End: June 04, 2025 Franco Bradley DO Attending Provider Active S tart: June 04, 2025 End: June 04, 2025 Goals (unrecognized section and content) Goals [...] BE BASED ON THE PRIMARY CLINICAL RECORDS. [employer] provides no warranty or guarantee of the accuracy or completeness of information in this document.
== END 2025-06-20 12:47 | disposition home or self-care (01) ==
LOC: MAMMO 12:46
PROVIDERS: PCP Nurse Practitioner; Visit Provider Nurse Practitioner
DX: Z12.31 Encounter for screening mammogram for malignant neoplasm of breast (principal); E28.39 Other primary ovarian failure; M81.0 Age-related osteoporosis without current pathological fracture; M85.88 Other specified disorders of bone density and structure, other site
CPT/HCPCS: 77063; 77067; 77080

== ENCOUNTER 2025-07-16 08:57 | Outpatient (OUT) | payer MEDICARE, SELFPAY ==
--- NOTE | 2025-07-16 | XR_ITS ---
The [address] [address] Patient Name: JESS BACON MRN: [id number] date: 1955 Sex: F Assigned Patient Location: [facility] Current Patient Location: [facility] Accession/Order Number: [id number] Exam Date: 07/16/2025 09:55 Report Date: 07/16/2025 10:07 At the request of: WALDO PICKARD DO Procedure: XR ankle RT min 3V RIGHT ANKLE - 3 views CLINICAL DATA: Follow-up trimalleolar fracture COMPARISON: 06/04/2025 AP, lateral and oblique views were obtained. There is redemonstration of lateral plates and screws at the distal fibula. There are 2 cannulated screws at the medial malleolus as well as a syndesmosis screw. The hardware is unchanged from the prior. The underlying medial and lateral malleolar fractures are stable. The posterior malleolar fracture is mostly obscured by the fibular plate on the lateral view. There is osteopenia. No new fracture or dislocation is noted. There is still minor soft tissue swelling. XR/XR ankle RT min 3V IMPRESSION: STABLE FRACTURES AND FIXATION HARDWARE. Impression dictated by: Tiffanie Wilson M.D. 07/16/2025 10:07 AM Dictation Location: [place] [address] Electronically authenticated by: [id number] Y Date: 07/16/2025 10:07
--- OUTSIDE RECORDS SUMMARY | 2025-07-16 09:00 | XMS_ITS | Clinical Summary ---
Author Organization [facility] tem Address [id number] [address] [place] [address] Care Team Providers Care Forest Fire Control Officer Name Role Phone Millie Gonzalez Aileen WISEN-BLADE BONER Primary Care Provider [phone] Allergies No known active allergies Medications MedicationSigDispense QuantityRefillsLast FilledStart DateEnd DateStatus cholecalciferol, vitamin D3, 400 units tablet Take 400 Units by mouth daily.Active Active Problems No known active problems Family History Medical HistoryRelationNameCommentsEmphysemaFatherHypertensionMotherRelationName StatusCommentsFatherDeceasedMotherDeceased Social History Tobacco UseTypesPacks/DayYears UsedDateSmoking Tobacco: NeverSmokeless Tobacco: Never Tobacco Cessation:Counseling Given: Not Answered Alcohol UseStandard Drinks/WeekCommentsNever0 (1 standard drink = 0.6 oz pure alcohol)AUDIT-CAnswerDate RecordedQ1: How often do you have a drink containing alcohol?Never03/12/2020Average Number of DrinksNot on file03/12/2020Frequency of Binge DrinkingNot on file03/12/2020ChildcareAnswerDate RecordedChildcareUnknown 02/15/2019EmploymentAnswerDate IsoahakfFmfnlwfgheRdqzcgq14/12/2019Hunger ScreeningAnswerDate RecordedWithin the past 12 months we worried whether our food would run out before we got money to buy more.Never True03/19/2023Within the past 12 months the food we bought just didn't last and we didn't have money to get more.Never True3Purpose - LifeAnswerDate RecordedPurpose and direction in cibcMzkipdz90/11/2021CommentsNoSex and Gender Information ValueDate RecordedSex Assigned at BirthNot on fileLegal PhnAxyypt49/06/2015 11:55 AM EDTGender IdentityNot on fileSexual OrientationNot on file Last Filed Vital Signs Vital SignReadingTime TakenCommentsBlood Cmjwgxvy593/68003/19/2023 6:27 PM EDT Srcsc4108/14/2023 6:27 PM LDCLnxbkysuhds32.8 ??C (98.3 ??F)03/19/2023 2:08 PM EDTRespiratory Dddz258203/19/2023 6:27 PM EDTOxygen Gpbtnbeefs15%03/19/2023 6:27 PM EDTInhaled Oxygen Concentration--Begyvg56.4 kg (120 lb)03/19/2023 2:08 PM EDT Xbgflz326.4 cm (5')03/19/2023 2:08 PM EDTBody Mass Index23.44003/19/2023 2:08 PM EDT Plan of Treatment Health MaintenanceDue DateLast DoneCommentsDepression Qykydjbdm43/13/1968Tobacco Jpbgdsdsw23/13/1968DTaP,Tdap and Td Vaccines (1 - Tdap)12/17/1974Zoster (Shingles) Vaccine (1 of 2)12/17/2005Fall Risk Mgoobbhkt62/13/2021dult BMI Pywuwsrmm76/Influenza Fnyqpul1905/07/2025RSV ( or age 60+ yrs) (1 - 1-dose 75+ series)12/17/2030 Medical Devices Not on file Insurance Care Teams Team MemberRelationshipSpecialtyStart DateEnd Date Millie Gonzalez, PUBLISHING MANAGER-[employer]ADE [employer] [facility] [place] [address] PCP - GeneralNurse Practitioner03/19/23
--- OUTSIDE RECORDS SUMMARY | 2025-07-16 09:00 | XMS_ITS | Clinical Summary ---
Author Organization [facility] Address [address] [place] [address] Care Team Providers Care Environmental Projects Advisor Name Role Phone Millie Gonzalez MOOSE HUNTER Unavailable Allergies Active AllergyReactionsCriticalityNoted DateCommentsMorphineGI intolerance 12/31/2023 Medications MedicationSigDispense QuantityRefillsLast FilledStart DateEnd DateStatus escitalopram (Lexapro) 5 MG tablet TAKE 1 TABLET BY MOUTH ONCE DAILY Oral for 90 Days05/25/2023ctive cholecalciferol (Vitamin D-3) 25 MCG (1000 UT) capsule 2 capsulesActive meloxicam (Mobic) 7.5 MG tablet TAKE 1 TABLET BY MOUTH ONCE DAILY Oral for 30 DaysActive Active Problems No known active problems Social History Tobacco UseTypesPacks/DayYears UsedDateSmoking Tobacco: NeverSmokeless Tobacco: Never Tobacco Cessation:Counseling Given: Not Answered Alcohol UseStandard Drinks/WeekCommentsNever0 (1 standard drink = 0.6 oz pure alcohol)CommentsUnknownSex and Gender InformationValueDate RecordedSex Assigned at BirthNot on fileLegal QlgEvoizw80/15/2023 6:45 PM EDTGender Identity Not on fileSexual OrientationNot on file Last Filed Vital Signs Vital SignReadingTime TakenCommentsBlood Cgypyfiw373/8008 12:00 PM EDT Pulse--Hivnpcepbmc51.4 ??C (97.6 ??F)12/31/2023 10:55 AM EDTRespiratory Rate-- Oxygen Saturation--Inhaled Oxygen Concentration--Bwgcwl42.2 kg (124 lb) 01/20/2024 3:10 PM EIXLyremg060.9 cm (5' 1 )01/20/2024 3:10 PM EDTBody Mass Index23.43001/20/2024 3:10 PM EDT Plan of Treatment Not on file Insurance Care Teams Team MemberRelationshipSpecialtyStart DateEnd Date Millie Gonzalez NP [address] [place] [address] Referring PhysicianFamiNorthside Hospital Duluth12/31/23
--- OUTSIDE RECORDS SUMMARY | 2025-07-16 09:00 | XMS_ITS | Clinical Summary ---
Author Organization [facility] Address [address] [place] [address] Care Team Providers Care Certified Prosthetist Name Role Phone Millie Gonzalez CLINICAL RESEARCH MANAGEMENT ASSOCIATE-C Primary Care Provider [phone] Allergies No known active allergies Medications MedicationSigDispense QuantityRefillsLast FilledStart DateEnd DateStatus oxybutynin XL (Ditropan-XL) 10 mg 24 hr tablet Take 10 mg by mouth in the morning.02/10/2024ctive cholecalciferol, vitamin D3, (Vitamin D3) 50 mcg (2,000 unit) capsule Take 3 capsules by mouth in the morning.Active escitalopram (Lexapro) 5 mg tablet Take 5 mg by mouth in the morning.5Active aspirin 81 mg EC tablet Take 81 mg by mouth 1 (one) time.4Active meloxicam (Mobic) 15 mg tablet Take 15 mg by mouth in the morning.Active omeprazole (PriLOSEC) [address] capsule Take 40 mg by mouth before breakfast./ctive Active Problems ProblemNoted DateDiagnosed DateAcute cxysuzemxf79/04/2025Acute frontal sinusitis 04/09/2025reast cancer screening by wsaeeieqr53/04/2025Screening for icyfsfzhgtseii31/04/2025erumen hyqnbkqvo84/04/2025Dupuytrens contracture 04/09/2025Fluid level behind tympanic membrane of both ears04/09/2025Hallux rigidus, right foot04/09/2025History of colonic fbskdr9204/09/2025History of non- ST elevation myocardial infarction (NSTEMI)04/09/2025 Overview (04/09/2025): Noted in [facility] page 4, added per outpatient CDI policy. History of recent fall04/09/2025Hospital discharge follow-up04/09/2025Ingrown right big ppjhagr9704/09/2025Low back pain04/09/2025Lower extremity neuropathy 04/09/20258873Zawrdfhganvzv36/04/2025Lump of right tasykw9204/09/2025Onychomycosis 04/09/2025Osteoarthritis of lumbosacral spine04/09/2025Pain in right foot 04/09/2025Right elbow pain04/09/2025Sigmoid ldtlwfoqkjokyf15/04/2025Sinusitis 04/09/2025Sore uiygcg7504/09/20251106Xhmstdhtmhq09/04/0706Ogiafcx39/04/2025Vitamin D /04/2025NSTEMI (non-ST elevated myocardial infarction)03/25/2024 Vnwujszxxmkzskr36/20/0413Kafpttr12/20/2024bnormal stress test03/25/2024 Family History RelationNameStatusCommentsFatherDeceasedMotherDeceased Social History Tobacco UseTypesPacks/DayYears UsedDateSmoking Tobacco: NeverSmokeless Tobacco: NeverAlcohol UseStandard Drinks/WeekCommentsYes0 (1 standard drink = 0.6 oz pure alcohol)occasionalAHC UtilitiesAnswerDate RecordedIn the past 12 months has the [employer], gas, oil, or water [employer] threatened to shut off services in your home?No03/25/2024Humiliation, Afraid, Rape, and Kick questionnaireAnswerDate RecordedWithin the last year, have you been afraid of your partner or ex-partner?No03/25/2024Emotionally AbusedNot on file03/25/2024hysically Abused Not on file03/25/2024Sexually AbusedNot on file03/25/2024Overall Financial Resource Strain (CARDIA)AnswerDate RecordedHow hard is it for you to pay for the very basics like food, housing, medical care, and heating?Not hard at all 03/25/2024TransportationAnswerDate RecordedIn the past 12 months, has lack of transportation kept you from medical appointments or from getting medications?No 03/25/2024Lack of Transportation (Non-Medical)Not on file03/25/2024Housing Stability Vital SignAnswerDate RecordedUnable to Pay for Housing in the Last YearNot on file03/25/2024Number of Places Lived in the Last YearNot on file 03/25/2024In the last 12 months, was there a time when you did not have a steady place to sleep or slept in ashelter (including now)?No03/25/2024Hunger Vital SignAnswerDate RecordedWithin the past 12 months, you worried that your food would run out before you got the money to buymore.Never true4Ran Out of Food in the Last YearNot on file03/25/2024CommentsUnknownSex and Gender InformationValueDate RecordedSex Assigned at IgspaZnyfiz06/30/2025 4:29 PM EDT Legal LalQvqohs41/29/2022 10:14 PM EDTGender XjhtqoqmJaccco61/30/2025 4:29 PM EDTSexual OrientationHeterosexual or Ypwsjuln63/30/2025 4:29 PM EDT Last Filed Vital Signs Vital SignReadingTime TakenCommentsBlood Okxaqidw873/6408 11:18 AM EDT Cnsnx969304/09/2025 11:18 AM ASDUxrtgmatnhz03.7 ??C (96.3 ??F)03/30/2024 12:10 PM EDTRespiratory Obmb0171 2:47 PM EDTOxygen Hyhwileqtp21%04/09/2025 11:18 AM EDTInhaled Oxygen Concentration--Hoelfe73.1 kg (117 lb)04/09/2025 11:18 AM UMSIozzka926.9 cm (5' 1 )04/09/2025 11:18 AM EDTBody Mass Index22.11004/09/2025 11:18 AM EDT Plan of Treatment Health MaintenanceDue DateLast DoneCommentsCT Uftgaivdwvco83/13/1956FIT-DNA 1955FIT1955FOBT1955Medicare Annual Wellness (AWV)1955 Rnxqispgxjxcb16/13/1956Depression Vgvkeubvb95/13/1968Pneumococcal Vaccine: 50+ Years (1 of 2 - PCV)12/17/1974Adult Pogkqqv5612/17/19777398Pouetunrd38/13/1996Zoster Vaccines (1 of 2)12/17/2005Fall Risk Sotkfjgxv98/13/2021OVID-19 Vaccine (1 - season)2025Influenza Vaccine (#1)05/07/20251078Xeatkuznjdx12/22/2035 09/27/2024olorectal Cancer Uafgrjlyj75/22/2035HIB VaccinesAged OutNo longer eligible based on patient's age to complete this topicHPV VaccinesAged OutNo longer eligible based on patient's age to complete this topicIPV VaccinesAged OutNo longer eligible based on patient's age to complete this topicMeningococcal B VaccineAged OutNo longer eligible based on patient's age to complete this topicMeningococcal VaccineAged OutNo longer eligible based on patient's age to complete this topicRotavirus VaccinesAged OutNo longer eligible based on patient's age to complete this topic Insurance Advance Directives * Full Code (Latest Code Status on File) Date ActivatedDate InactivatedComments03/25/2024 10:58 PM03/30/2024 2:19 PM Care Teams Team MemberRelationshipSpecialtyStart DateEnd Date Millie Gonzalez, JAH [address] [place] [address] PCP - GeneralNurse Practitioner03/26/24
--- OUTSIDE RECORDS SUMMARY | 2025-07-16 09:03 | XMS_ITS | CCD ---
Author Organization [facility] Care Team Providers Care Painter Ordnance Name Role Phone ABIOLA, DR GINA Berg Primary Care Unavailable PAY, DR ROBLES Admitting Unavailable PAY, DR ROBLES Attending Unavailable IVETTE RICHMOND Consulting Unavailable Millie Gonzalez Primary Care Physician [phone] LAUREANO AMARAL Referring Unavailable LAUREANO AMARAL Attending Unavailable LAUREANO AMARAL Referring Unavailable LARISSA SUTTON Attending Unavailable LARISSA SUTTON Referring Unavailable Malcom, PROTECTION MANAGER Zoila Sykes Attending Provider MD Luisito Roth Primary Care Provider [phone] AUGUST HAYES Attending Unavailable DAVID POLO Attending Unavailable Luisito Roth MD Primary Care Provider Franco Bradley DO Attending Provider Carlos TIE TAPE MACHINE OPERATOR-CMillie Primary Care Provider [phone] Franco Bradley DO Other Provider Franco Bradley [...] Attending Unavailable Carlos, Millie Gallagher Admitting Unavailable Allergies Allergy ClassificationReported Allergen(s)Allergy TypeDate of OnsetReaction(s) Facility (2 sources)No Known Medication Allergies; Translations: [No Known Medication Allergies]Propensity to adverse reactions (disorder)[facility] Repository Medications Current Medications MedicationDrug Class(es)DatesSig (Normalized)Sig (Original)aspirin 81 mg delayed release oral tablet (7 sources)Platelet Aggregation Inhibitor, Nonsteroidal Anti-inflammatory Drug Start: 71-68-4706wuuj 1 tablet by mouth once dailyAspirin 81 mg tablet,delayed release (DR/EC) Active 81 MG PO Daily May 27, 2024 12:00am Complies with drug therapyStart: 81-24-8293ituv 81 mg by mouth once dailyaspirin 81 mg, Oral, Daily, Refills(s) 0 Start Date: 03/31/24 Status: Orderedazithromycin 500 mg oral tablet (1 source)Macrolide AntimicrobialStart: 10-29-2023 End: 38-29-5765zvyx 1 tablet by mouth once dailyZithromax 500 mg oral tablet 500 mg = 1 tab(s), Oral, Daily, X 5 day(s), # 5 tab(s), Refills(s) 0, Pharmacy: [facility] #[id number], 158, cm, 10/29/23 13:27:00 EST, Height/Length Dosing, 53, kg, 10/29/23 13:27:00 EST, Weight Dosing Start Date: 10/29/23 Stop Date: 11/03/23 Status: OrderedCholecalciferol (6 sources)Vitamin DStart: 42-13-4286stze 1 capsule by mouth once daily Cholecalciferol (Vitamin D3) 100 mcg (4,000 unit) Capsule Active 100 MCG PO Daily January 20, 2021 12:00am Complies with drug therapyStart: 52-15-5105axax 1 capsule by mouth once dailyStart: 19-84-1432hefb 100 ug by mouth once daily Cholecalciferol (Vitamin D3) Active 100 MCG PO Daily January 20, 2021 12:00am Compression stockings (2 sources)Start: 28-47-2623Powxqipblom stockings Compression stockings, See Instructions, 1 EA, 0, wear stocking when on your feet > 8 hours per day, Supply Start Date: 06/30/23 Status: Orderedescitalopram 5 mg oral tablet (19 sources)Serotonin Reuptake InhibitorStart: 89-45-1757fwzf 1 tablet by mouth once daily in the morningEscitalopram Oxalate 5 mg tablet Active 5 MG PO Every morning April 23, 2025 12:00am Complies with drug therapyStart: 07-12-2024 take 1 tablet by mouth once dailyescitalopram 5 mg oral tablet See Instructions, Take 1 tablet by mouth once daily, # 90 tab(s), Refills(s) 0, Pharmacy: [facility], 158, cm, 06/06/24 14:02:00 EDT, Height/Length Dosing, 51.4, kg, 06/06/24 14:02:00 EDT, Weight Dosing Start Date: 07/12/24 Status: OrderedStart: 10-25-2023 End: 28-04-5110Fpdxufgejbel Oxalate Discontinued MG PO October 25, 2023 1:00am February 01, 2024 9:37amStart: 05-25-2023 End: 53-83-3559rzco 1 tablet by mouth once dailyEscitalopram Oxalate 5 mg tablet Discontinued 5 MG PO Daily February 01, 2024 9:37am May 27, 2024 2:07pmKnee Scooter (3 sources)Start: 15-69-1278Lozb Scooter Active 0 .Route .MEDSUPPLY 1 April 26, 2025 12:00am As directedmeloxicam 15 mg oral tablet (7 sources)Nonsteroidal Anti-inflammatory DrugStart: 71-92-2037pxmn 1 tablet by mouth once daily in the morningMeloxicam 15 mg tablet Active 15 MG PO Every morning May 27, 2024 12:00am Complies with drug therapyStart: 05-27-2024 Meloxicam Active MG PO May 27, 2024 12:42ceKwzjglwapbhe-Pida-Zcmsh Acid (Centrum) 18-400 mg-mcg tablet (4 sources)Start: 36-05-4781ltko 1 tablet by mouth once daily Dlqazvlxiife-Rtkc-Dsbwq Acid (Centrum) 18-400 mg-mcg tablet Active 1 TAB PO Daily April 242:00am Complies with drug therapyStart: 54-81-4490owaj 1 tablet by mouth once dailyomeprazole 40 mg delayed release oral capsule (5 sources)Proton Pump InhibitorStart: 41-34-7623issb 1 capsule by mouth once daily in the morningOmeprazole 40 mg capsule,delayed release(DR/EC) Active 40 MG PO Every morning April 23, 2025 12:00am Complies with drug usdbglz91 hr oxybutynin chloride 10 mg extended release oral tablet (7 sources)Cholinergic Muscarinic AntagonistStart: 38-70-9724blow 1 tablet by mouth every twenty-four hoursStart: 94-12-9169Jffytxakbj Chloride Active MG PO May 27, 2024 12:00amStart: 24-33-7420bhyb 1 tablet by mouth once daily in the morningOxybutynin Chloride 10 mg tablet extended release 24hr Active 10 MG PO Every morning May 27, 2024 12:00am Complies with drug therapy Vitamin D3 1999 intl units oral Tab (2 sources)Start: 03-94-5088xrww 1 tablet by mouth once dailyVitamin D3 2000 intl units oral Tab 50 mcg, Oral, Daily, tab(s), Refills(s) 0 Start Date: 11/30/22 Status: Ordered Completed/Discontinued Medications MedicationDrug Class(es)DatesSig (Normalized)Sig (Original)amoxicillin 500 mg oral capsule (6 sources)Penicillin-class AntibacterialStart: 02-01-2024 End: 89-20-9019muju 1 capsule by mouth twice dailyAmoxicillin 500 mg capsule Discontinued 500 MG PO Twice daily 25 06February 01, 2024 12:00am May 27, 2024 2:06pmbenzonatate 200 mg oral capsule (6 sources)Non-narcotic AntitussiveStart: 10-25-2023 End: 97-87-0409Zvqhzdytdbq 200 mg capsule Discontinued 200 MG PO 2-3 TIMES PER DAY as needed for cough 2023 1:00am February 01, 2024 9:33am cephalexin 500 mg oral capsule (6 sources)Cephalosporin AntibacterialStart: 10-25-2023 End: 20-04-1340Xgcnlqhvtu 500 mg capsule Discontinued MG PO October 25, 2023 1:00am February 01, 2024 9:33amStart: 10-25-2023 End: 38-62-0017Bephjgccrj Discontinued MG PO October 25, 2023 1:00am February 01, 2024 9:33amlidocaine 0.05 mg/mg medicated patch (6 sources)Antiarrhythmic, Amide Local AnestheticStart: 05-27-2024 End: 58-54-7906wngwy 1 dose topically once daily as needed for painLidocaine 5 % adhesive patch,medicated Discontinued 1 PATCH TOPICAL Daily as needed for pain 15 10 May 27, 2024 12:00am April 23, 2025 1:47pm leave on most painful area for up to 12 hrsmethylPREDNISolone 4 mg oral tablet (12 sources)CorticosteroidStart: 05-27-2024 End: 20-88-0670Okpoeivghjiiaivqet 4 mg tablets,dose pack Discontinued MG PO May 27, 2024 12:00am April 23, 2025 1:46pmStart: 05-27-2024 Methylprednisolone Active MG PO May 27, 2024 12:00amStart: 10-25-2023 End: 27-86-0286bgtj 1 tablet by mouth onceMethylprednisolone (Medrol (Marco Antonio)) 4 mg tablets,dose pack Discontinued 0 PO per package directions 1February 2023 1:00am February 01, 2024 9:33am PO PER PKG DIR for 6 daysoxyCODONE hydrochloride 5 mg oral capsule (5 sources)Opioid AgonistStart: 04-23-2025 End: 59-28-4582Hpgibnsfg 5 mg capsule Discontinued 5 MG PO .Q6-Q8HR as needed for pain 20 5 April 23, 2025 April 24, 2025 3:22pm Problems Problem ClassificationProblemDateDocumented DateEpisodic/ChronicAcute bronchitis (3 sources)Acute bronchitis; Translations: [Acute bronchitis, unspecified]Onset: 69-75-0122GrzpisuaSwvvj myocardial infarction (1 source)Myocardial nyvmqeltoe43-67-5039SvgefcnAmuzrht disorders (2 sources)Anxiety igpmzdab82-89-1106LvuwpqrDldseci and circulatory congenital anomalies (2 sources)Malformation of coronary vessels; Translations: [Malformation of coronary vessels]Onset: 95-84-2623MzclrjxKlgcvwl obstructive pulmonary disease and bronchiectasis (6 sources)Bronchitis; Translations: [Bronchitis, not specified as acute or chronic]64-51-6414IwmbhbjpLrzaglok atherosclerosis and other heart disease (1 source)History of non-ST segment elevation myocardial -82-3023 ChronicComment on above:Noted in [facility] page 4, added per outpatient CDI policy. Disorders of lipid metabolism (2 sources)Pure hypercholesterolemia, unspecified; Translations: [Pure hypercholesterolemia, unspecified]Onset: 40-75-2084TkzusjtH Codes: Fall (6 sources)Fall; Translations: [Unspecified fall, initial encounter]05-27-2024 EpisodicFracture of lower limb (14 sources)Displaced trimalleolar fracture of right lower leg, initial encounter for closed fracture; Translations: [Trimalleolar fracture of right ankle]Onset: 031241-97-6337ZzmqyhbbSvuumsjql and duodenitis (1 source)Klpwabqll25-41-2274GugmrozjBlsmpibhsikiv and screening for infectious disease (6 sources)Contact with and (suspected) exposure to other viral communicable diseases; Translations: [Contact with or exposure to other viral diseases] 46-65-3474OnbuztgbImqjdau (2 sources)Flrerooaxbrqx78-85-4262GvbxzfeqVdvprwxlucl deficiencies (6 sources)Vitamin D deficiency; Translations: [Vitamin D deficiency, unspecified]33-68-7657CpcgwlnVqerh aftercare (1 source)Post-discharge cmiuys-en20-31ow12-87-3607OtnmqszfXyzsd and unspecified benign neoplasm (3 sources)History of polyp of colon; Translations: [Personal history of adenomatous and serrated colon polyps]Onset: 10-40-0847ObmkpcimVgmdh circulatory disease (4 sources)Hemorrhage, not elsewhere classified; Translations: [HEMORRHAGE NOT ELSEWHERE CLASSIFIED]Onset: 16-91-6886DhdqbcfvNppdb connective tissue disease (2 sources)Dupuytren's yukcrdnmqgg80-07-0088QgeqtcucYlgvm connective tissue disease (2 sources)Triggering of fnyyg91-35-1505ZvqlomtnNqggp connective tissue disease (1 source)Foot cjsa90-78-0600PyrldhglGsnri ear and sense organ disorders (1 source)Impacted vzaevkk40-78-6205HvrrozjfPczbu injuries and conditions due to external causes (1 source)History of iqhk43-87-8795LepwxuwdZeaon nervous system disorders (2 sources)Nerve root gzytmuxb23-16-0991ZfrnqjdKuuje nervous system disorders (2 sources)Neuropathy of lower muvb73-86-0488OdxtewkRrxsm non-traumatic joint disorders (2 sources)Pain in ivurp68-54-2681GhsrerezRwnih screening for suspected conditions (not mental disorders or infectious disease) (6 sources)Patient encounter status; Translations: [Encounter for screening for malignant neoplasm of colon]38-20-1111ChrwhripAeirxsy on above:Problem List clean-up per request of Phys. EHR CmteOther skin disorders (2 sources)Ingrowing great pfrency59-35-6079HyywunzgMohbw upper respiratory infections (11 sources)Acute frontal sinusitis, unspecified; Translations: [Acute frontal sinusitis]Onset: 51-77-8891MpaqimsySexets media and related conditions (7 sources)Acute bilateral otitis media ; Translations: [Otitis media, unspecified, bilateral]91-93-1242PaxrwcsxVavbvfwu codes; unclassified (6 sources)Postprocedural state finding; Translations: [Other specified postprocedural states]98-80-4222BdtdrxucAgdyfjlxwxe; intervertebral disc disorders; other back problems (4 sources)Lumbosacral spondylosis; Translations: [Spondylosis]71-54-6384Nyaywqu Spondylosis; intervertebral disc disorders; other back problems (9 sources)Low back pain; Translations: [Low back pain]63-96-4915FmptwriaGvgobok (2 sources)Mdfbfon45-36-6163UtyxcdocMouoywvymoay (4 sources)Patient encounter phbuae71-89-5114Tcjlkrkddjfn (1 source)Body mass index 20-24 - oureth30-26-1579Pxqlldgavqvw (1 source)Low back pain, unspecified; Translations: [Low back pain, unspecified] Onset: 05-27-2024 Results Test NameValueInterpretationReference RangeFacilityAmbulatory Visit Summaryon 41-64-5350Vlhdxadbgs Visit SummaryAmbulatory Visit Summary [place] BACON :1955 Visit Date:06/15/2025 Ambulatory [...] 1:20 PM EDT With: Millie Florentino Where: [address] [address]- Wednesday2025 2:30 PM EDT With: Where: [address] [address]- Medications What How Much When Instructions New escitalopram (escitalopram 5 mg oral tablet) See instructions Refills: 3 Take 1 tablet by mouthonce daily Pickup at [facility] New omeprazole (omeprazole 40 mg Cap-DR) 1 Capsules By Mouth Every day Duration: 90 Days Refills: 3Pickup at [facility] 142 Unchanged aspirin 81 Milligram By [...] Tablets By Mouth Every day Pharmacy Information [facility]: [address] [place], [place] [id number] [phone] Allergies No Known Allergies No Known Medication [...] signed up for this yet, please contact [employer] at [phone] to get signed up today. Language Information Language assistance services are available as needed. [facility] Medicine Office/Clinic Noteon 78-18-8153Vomlze Medicine Office/Clinic NoteFaboston sanatorium Medicine Office/Clinic Note HPI Staff Pt is here for yearly check Health Maintenance: Colonoscopy: 09/27/24 Dexa: 06/20/25 @ [facility] Mammo: 06/20/25 @ [facility] Pap: last one was 5 years [...] daily, # 90 tab(s), Refills(s) 3, Pharmacy: [facility], 158, cm, 06/15/25 10:04:00 EDT, Height/Length Dosing, 50.5, kg, 06/15/2510:04:00 EDT, Weight Dosing escitalopram, See Instructions, Take 1 tablet by mouth once daily, # 90 tab(s), Refills(s) 0, Pharmacy: [facility], 158, cm, 04/11/25 14:59:00 EDT, Height/Length Dosing, 52.9, kg, 04/11/2514:59:00 EDT, [facility], Compression stockings, See Instructions, 1 EA, 0, wear stocking when on your feet > 8 hours per day, Supply omeprazole, 40 mg = 1 cap(s), Oral, Daily, X 90 day(s), # 90 cap(s), Refills(s) 3, Pharmacy: [facility], 158, cm, 01/31/25 10:20:00 EDT, Height/Length Dosing, 53.6, kg, 01/31/25 10:20:00 EDT, Weight Dosing omeprazole, 40 mg = 1 cap(s), Oral, Daily, X 90 day(s), # 90 cap(s), Refills(s) 3, Pharmacy: [facility], 158, cm, 06/15/25 10:04:00 EDT, Height/Length Dosing, 50.5, kg, 06/15/25 10:04:00 EDT, Weight Dosing oxybutynin, 10 mg = 1 tab(s), Oral, Daily, # 90 tab(s), Refills(s) 3, Pharmacy: [facility], 158, cm, 06/15/25 10:04:00 EDT, Height/Length Dosing, 50.5, kg, 06/15/25 10:04:00 EDT, Weight Dosing oxybutynin, 10 mg = 1 tab(s), Oral, Daily, # 90 tab(s), Refills(s) 3, Pharmacy: [facility], 158, cm, 01/31/25 10:20:00 EDT, [...] - Denies Tobacco Us (more content not included)...[facility] CampusComment on above:Result Comment: Electronically Signed By: Millie Florentino\.br\Date and Time Signed: 06/15/25 10:35 EDTAmbulatory Visit Summary on 13-66-2767Whwecvvpmh Visit SummaryAmbulatory Visit Summary [place] BACON :1955 Visit Date:06/04/2025 Ambulatory Visit Instructions Your [...] 9:40 AM EDT With: Millie Florentino Where: [address] [address]- Wednesday2025 2:30 PM EDT With: Where: [address] [address]- You Need to Complete the Following BD Bone Density DEXA, 06/04/25, Routine, Order for Future Visit, Transport Mode: Ambulatory, Reason: Post menopausal, Ovarian failure due to menopause, No, 112, pp_set_radiology_subspecialty, [facility] [place] Mamm Screen w/CAD if perf and 3D Dimitri, 06/04/25, Routine, Order for Future Visit, Transport Mode:Ambulatory, Reason: Screening, No, Breast cancer screening by mammogram, pp_set_radiology_subspecialty, [facility] Medications What How Much When Why Instructions Unchanged aspirin 81 Milligram By Mouth Every day Unchanged calcium carbonate (calcium (as carbonate) 500 mg oral tablet) Unchanged cholecalciferol (Vitamin D3 2000 intl units oral Tab) 50 Microgram By Mouth Every day Unchanged escitalopram (escitalopram 5 mg oral tablet) See instructions Take 1 tablet by mouth oncedaily Unchanged meloxicam (meloxicam 15 mg Tab) See [...] diet and exercise plan (more content not included)...[facility] Medicine Office/Clinic Noteon 84-98-1219Bcvqnw Medicine Office/Clinic NoteFuller Hospital Medicine Office/Clinic Note Chief Complaint Subsequent Medicare [...] and all current CDC recommended immunizations, relevant riskrecommendations and the following patient brochures were given. [...] of clutter to prevent tripping and/or falling. [place] Advance Directives reviewed. Documents provided to patient at last AWV. Patient has not yet filled them out. Patient encouraged to bring documents in once completed. Patient denies any problems with ADL???s and Instrumental ADL???s. Cognitive screening completed with memory and clock face drawing. No deficits noted. Patient recited 2/3 memory words. Immunization record reviewed, discussed Shingrix vaccine with educational handout and availability.No COVID vaccines have been administered. Allergies and [...] the provider if there would be a changeor concerns with symptoms with fear, unable to sleep, worrying too much, or feeling down and/or sadwith lost of interest with daily activities. Will continue to monitor with screening yearly during Medicare Wellness Visits. 2. Anxiety disorder (F41.9: Anxiety disorder, unspecified) Patient takes escitalopram daily as directed, voices effectiveness of medication. DOMINGUEZ-7 screening completed today with a score of (2). Follows with PCP as directed for management and symptom control.Denies any suicidal ideations at this time. Education [...] reminded with the importance of continued Breast Self- Awareness at home. Easy to read demonstration on how to perform a self breast exam: What to look for and feel for was reviewed and provided topatient. Mammogram ordered and has been faxed to [facility] per patient request. Pt has been [...] weight-bearing physical activity can (more content not included)...[facility] CampusComment on above:Result Comment: Electronically Signed By: Millie Florentino\.br\Date and Time Signed: 06/05/25 13:03 EDT\.br\Electronically Co-Signed By: Lydia Rodrigues\.br\Date and Time Co- Signed: 06/04/25 15:13 EDTXR ankle RT 2Von 25-06-8835RU ankle RT 2[facility] [address] [place], [place] [id number] XRay Report Signed Patient: [place] Bacon MR#: [id number] 696 : 1955 Acct:[id number] Age/Sex: 69 / F ADM Date: 04/26/25 Loc: [place] Room: Type: [facility] Attending Dr: Franco Bradley DO [...] Lewis M.D. 04/26/2025 9:18 PM Dictation Location: [place] [address] Transcribed By: [facility] 04/26/252117 Dictated By: Gerald Lewis DO 04/26/252115 Signed By: 04/26/252117NoScionHealth Physician GroupAlanine aminotransferase [Enzymatic activity/volume] in Serum or PlasmaOrdered By: Franco Bradley on 64-08-7068FNG [Catalytic activity/Vol]26 U/L7-52[facility] HospitalComment on above:Performed By: #### CBC, EBS A1C, CMP wRFX A1C #### [facility] [address] [place] [address] USAAlbumin [Mass/volume] in Serum or Plasma by Bromocresol green (BCG) dye binding methoOrdered By: Franco Bradley on 96-63-5543Iawlzvx BCG dye [Mass/Vol]4.0 g/dL3.5-5.7FUniversity Hospitals Conneaut Medical CenterAlkaline phosphatase [Enzymatic activity/volume] in Serum or PlasmaOrdered By: Franco Bradley on 62-07-0652WIN [Catalytic activity/Vol]40 U/X24-260EqqxqjaefMercy Health St. Elizabeth Boardman HospitalComment on above:Result Comment: PERFORMED BY: [address] [address] PATHOLOGIST CRYSTAL ATTACHER MATT LEIJA M.D.Performed By: #### CBC, EBS A1C, CMP wRFX A1C #### [place] [id number] USAAspartate aminotransferase [Enzymatic activity/volume] in Serum or PlasmaOrdered By: Franco Bradley on 03-65-5938NLA [Catalytic activity/Vol]32 U/W43-61KvlxtfartMercy Health St. Elizabeth Boardman HospitalComment on above: Performed By: #### CBC, EBS A1C, CMP wRFX A1C #### [address] [address] USABasophils [#/volume] in Blood by Automated countOrdered By: Franco Bradley on 38-94-5746Rnqviwrju (Bld) [#/Vol]0.0 10*3/uL0.0-0.[address] [facility] Board[facility] HospitalComment on above:Result Comment: PERFORMED BY: [address] [address] PATHOLOGIST CRYSTAL ATTACHER MATT LEIJA M.D.Performed By: #### CBC, EBS A1C, CMP wRFX A1C #### [address] [address] USABasophils/100 leukocytes in Blood by Automated count Ordered By: Franco Bradley on 51-05-2061Ehphnoyqd/100 WBC (Bld)0.5 [address] [address] Elizabeth Boardman HospitalComment on above:Performed By: #### CBC, EBS A1C, CMP wRFX A1C #### [address] [address] USABilirubin.total [Mass/volume] in Serum or PlasmaOrdered By: Franco Bradley on 04-49-6971Pxfnoznux [Mass/Vol]0.5 mg/dL0.3-1.0[facility] Board[facility] HospitalComment on above:Performed By: #### CBC, EBS A1C, CMP wRFX A1C #### [facility] [address] [place] [address] USABlood estimated average glucose determination by estimation from glycated hemoglobinOrdered By: Franco Bradley on 04-24-2025 Average glucose Estimated from glycated hemoglobin (Bld) [Mass/Vol]108 mg/dL [facility] HospitalCMP with reflex to A1Con 35-66-5942Fkrozvq [Mass/Vol]4.0 g/dLNormal3.5-5.7The [facility] Physician GroupComment on above: Performed By: #### CBC, EBS A1C, CMP wRFX A1C #### [facility] [address] [place] [address] USAGFR/1.73 sq M.predicted MDRD (S/P/Bld) [Vol rate/Area] mL/min/{1.73_m2}NormalThe [facility] Hospital Physician GroupComment on above:Performed By: #### CBC, EBS A1C, CMP wRFX A1C #### [facility] [address] [place] [address] USACalcium [Mass/volume] in Serum or PlasmaOrdered By: Franco Bradley on 41-19-0724Kmvbfcw [Mass/Vol]9.2 mg/dL8.6-10.3FUniversity Hospitals Conneaut Medical CenterComment on above:Performed By: #### CBC, EBS A1C, CMP wRFX A1C #### [facility] [address] [place] [address] USACarbon dioxide, total [Moles/volume] in Serum or Plasma Ordered By: Franco Bradley on 06-34-2239XP3 [Moles/Vol]31.0 mmol/L21.0-31.[address] [facility] Boardman HospitalComment on above:Performed By: #### CBC, EBS A1C, CMP wRFX A1C #### [facility] [address] [place] [address] USAChloride [Moles/volume] in Serum or PlasmaOrdered By: Franco Bradley on 81-94-8738Bskyeiby [Moles/Vol]104 mmol/F32-489PunpfyxboMercy Health St. Elizabeth Boardman HospitalComment on above:Performed By: #### CBC, EBS A1C, CMP wRFX A1C #### [facility] [address] [place] [address] USAComplete Blood Count Auto Diffon 84-38-5759Qger Corpuscular HGB Conc33.7 g/rNIkacih22.0-35.0The [facility] Physician GroupComment on above:Performed By: #### CBC, EBS A1C, CMP wRFX A1C #### [facility] [address] [place] [address] USANRBC%0.0 /100{WBC}Normal0-0.5The [facility] Group Comment on above:Performed By: #### CBC, EBS A1C, CMP wRFX A1C #### [facility] [address] [place] [address] USAWhite Blood Count9.0 [CFU]/mLNormal3.8-11.6The [facility] Physician GroupComment on above:Performed By: #### CBC, EBS A1C, CMP wRFX A1C #### [facility] [address] [place] [address] USACreatinine [Mass/volume] in Serum or PlasmaOrdered By: Franco Bradley on 14-26-6556Oeqfookxix [Mass/Vol]0.58 mg/dLLow0.60-1.20[facility] Boardman HospitalComment on above:Performed By: #### CBC, EBS A1C, CMP wRFX A1C #### [facility] [address] [place] [address] USAEBS A1C with Estimated Ave Gluon 77-68-9996Lgcllzn [Mass/Vol]108 mg/dLNormalThe [facility] Physician GroupComment on above:Result Comment: PERFORMED BY: [address] [place] [address] PATHOLOGIST CRYSTAL ATTACHER MATT LEIJA M.D.Performed By: #### CBC, EBS A1C, CMP wRFX A1C #### [facility] [address] [place] [address] USAECG 12 lead ECGon 01-14-0288VCU 12 lead ECGKETTERING HEALTH [facility]IS[facility] [address] [place] [address] Electrocardiograph Report Signed Patient: Florida Bacon MR#: [id number] 696 : 1955 Acct:[id number] Age/Sex: 69 / F ADM Date: 04/24/25 Loc: [place] Room: Type: [facility] Attending Dr: Franco Bradley DO Ordering Provider: [...] Signed By Abe Quiles MD 0 04/24/25 1638[facility] Physician GroupEosinophils [#/volume] in Blood by Automated countOrdered By: Franco Bradley on 07-93-4484Tbtbrbpnogv (Bld) [#/Vol]0.1 10*3/uL0.0-0.45[facility] Boardman HospitalComment on above: Performed By: #### CBC, EBS A1C, CMP wRFX A1C #### [facility] [address] [place] [id number] USAEosinophils/100 leukocytes in Blood by Automated count Ordered By: Franco Bradley on 39-93-5249Wdqndrwfpob/100 WBC (Bld)1.5 %.[facility] Boardman HospitalComment on above:Performed By: #### CBC, EBS A1C, CMP wRFX A1C #### [facility] [address] [place] [address] USAErythrocyte distribution width [Ratio] by Automated count Ordered By: Franco Bradley on 48-41-2051Nuaissputdp distribution width (RBC) [Ratio]14.5 %11.9-15.3FUniversity Hospitals Conneaut Medical CenterComment on above: Performed By: #### CBC, EBS A1C, CMP wRFX A1C #### [facility] [address] [place] [address] USAErythrocytes [#/volume] in Blood by Automated countOrdered By: Franco Bradley on 20-04-4940YKM (Bld) [#/Vol]4.57 10*6/uL3.60-5.00[facility] Boardman HospitalComment on above:Performed By: #### CBC, EBS A1C, CMP wRFX A1C #### [facility] [address] [place] [address] USAGlomerular filtration rate [Volume Rate/Area] in Serum, Plasma or Blood by CreatinineOrdered By: Franco Bradley on 91-18-8526Aamgozwyjn filtration rate [Volume Rate/Area] in Serum, Plasma or Blood by Creatinine> 60.0 mL/MinMercy Health St. Elizabeth Boardman HospitalGlucose [Mass/volume] in Serum or Plasma Ordered By: Franco Bradley on 63-59-6587Wswkrnl [Mass/Vol]105 mg/xHJddw05-[address] Elizabeth Boardman HospitalComment on above:ADA recommended reference rangeResult Comment: ADA recommended reference rangePerformed By: #### CBC, EBS A1C, CMP wRFX A1C #### [facility] [address] [place] [address] USAHematocrit [Volume Fraction] of Blood by Automated count Ordered By: Franco Bradley on 29-75-4048Woknnqtjkf (Bld) [Volume fraction]39.1 % 34.0-46.4FUniversity Hospitals Conneaut Medical CenterComment on above:Performed By: #### CBC, EBS A1C, CMP wRFX A1C #### [facility] [address] [place] [id number] USAHemoglobin A1c measurementOrdered By: Franco Bradley on 60-38-8359ApV2z (Bld) [Mass fraction]5.4 %4.3-5.6FUniversity Hospitals Conneaut Medical CenterComment on above:Increased risk for diabetes: 5.7 - 6.4diabetes: >6.4glycemic control for adults with diabetes: <7.0Result Comment: Increased risk for diabetes: 5.7 - 6.4 diabetes: >6.4 glycemic control for adults with diabetes: <7.0Performed By: #### CBC, EBS A1C, CMP wRFX A1C #### [facility] [address] [place] [address] USAHemoglobin [Mass/volume] in BloodOrdered By: Franco Bradley on 46-09-3312Vspljqstxb (Bld) [Mass/Vol]13.2 g/dL11.8-15.4FUniversity Hospitals Conneaut Medical CenterComment on above:Performed By: #### CBC, EBS A1C, CMP wRFX A1C #### [facility] [address] [place] [address] USALeukocytes [#/volume] corrected for nucleated erythrocytes in Blood by Automated counOrdered By: Franco Bradley on 28-05-3731XYQ corrected for nucl RBC Auto (Bld) [#/Vol]9.0 10*3/uL3.8-11.6FUniversity Hospitals Conneaut Medical CenterLeukocytes [#/volume] in Blood by Automated countOrdered By: Franco Bradley on 74-62-7332LKZ (Bld) [#/Vol]9.0 10*3/uL3.8-11.6FUniversity Hospitals Conneaut Medical CenterComment on above:Performed By: #### CBC, EBS A1C, CMP wRFX A1C #### [facility] [address] [place] [id number] USALymphocytes [#/volume] in Blood by Automated countOrdered By: Franco Bradley on 67-39-4717Lkxijaemlpd (Bld) [#/Vol]1.4 10*3/uL1.00-4.[address] [facility] Boardman HospitalComment on above:Performed By: #### CBC, EBS A1C, CMP wRFX A1C #### [facility] [address] [place] [id number] USALymphocytes/100 leukocytes in Blood by Automated count Ordered By: Franco Bradley on 91-16-4079Xyxujhvpknv/100 WBC (Bld)15.5 %.[facility] Board[facility] HospitalComment on above:Performed By: #### CBC, EBS A1C, CMP wRFX A1C #### [facility] [address] [place] [id number] [facility] [Entitic mass] by Automated countOrdered By: Franco Bradley on 60-80-6800OWR (RBC) [Entitic mass]28.8 pg24.7-34.3FUniversity Hospitals Conneaut Medical CenterComment on above:Performed By: #### CBC, EBS A1C, CMP wRFX A1C #### [facility] [address] Auto (RBC) [Mass/Vol]Ordered By: Franco Bradley on 93-53-2491XCYF (RBC) [Mass/Vol]33.7 g/dL32.0-35.0[facility] Elizabeth Boardman HospitalMCV [Entitic volume] by Automated countOrdered By: Franco Bradley on 72-42-6129ZKE (RBC) [Entitic vol]85.5 jY88-129NpqsqqwdpMercy Health St. Elizabeth Boardman Hospital Comment on above:Performed By: #### CBC, EBS A1C, CMP wRFX A1C #### [facility] [address] [place] [id number] USAMonocytes [#/volume] in Blood by Automated countOrdered By: Franco Bradley on 41-97-9813Ktysjkdjk (Bld) [#/Vol]0.6 10*3/uL0.0-0.[address] [facility] Boardman HospitalComment on above:Performed By: #### CBC, EBS A1C, CMP wRFX A1C #### [facility] [address] [place] [address] USAMonocytes/100 leukocytes in Blood by Automated count Ordered By: Franco Bradley on 59-16-1860Bnbhpjnex/100 WBC (Bld)6.5 %.[facility] [address] Elizabeth Boardman HospitalComment on above:Performed By: #### CBC, EBS A1C, CMP wRFX A1C #### [facility] [address] [place] [address] USANeutrophils [#/volume] in Blood by Automated countOrdered By: Franco Bradley on 59-89-3016Umjxkdhbrws (Bld) [#/Vol]6.8 10*3/uL1.8-7.[address] Elizabeth Boardman HospitalComment on above:Performed By: #### CBC, EBS A1C, CMP wRFX A1C #### [facility] [address] [place] [address] USANeutrophils/100 leukocytes in Blood by Automated count Ordered By: Franco Bradley on 27-06-8901Ubvawmomnmj/100 WBC (Bld)76.[address] %.[address] Elizabeth Boardman HospitalComment on above:Performed By: #### CBC, EBS A1C, CMP wRFX A1C #### [facility] [address] [place] [address] USANo Panel InformationOrdered By: Franco Bradley on 99-47-1314Mtkjudtu Creatinine Clearance (ChemN/AFUniversity Hospitals Conneaut Medical CenterNucleated erythrocytes [Presence] in Blood by Automated countOrdered By: Franco Bradley on 40-69-6612Wekrchhwn RBC Auto Ql (Bld)0.0 /100{WBC}0-0.[address] [facility] Boardman HospitalPlatelet mean volume [Entitic volume] in Blood by Automated countOrdered By: Franco Bradley on 47-13-3251Vxmtpnoe mean volume (Bld) [Entitic vol]7.5 fL6.3-10.7FUniversity Hospitals Conneaut Medical CenterComment on above:Performed By: #### CBC, EBS A1C, CMP wRFX A1C #### [facility] [address] [place] [id number] USAPlatelets [#/volume] in Blood by Automated countOrdered By: Franco Bradley on 12-22-8970Eabgvnsns (Bld) [#/Vol]237 10*3/xU888-[address] [facility] Boardman HospitalComment on above:Performed By: #### CBC, EBS A1C, CMP wRFX A1C #### [facility] [address] [place] [address] USAPotassium [Moles/volume] in Serum or PlasmaOrdered By: Franco Bradley on 89-33-7065Wvtmxyuik [Moles/Vol]4.0 mmol/L3.5-5.1FUniversity Hospitals Conneaut Medical CenterComment on above:Performed By: #### CBC, EBS A1C, CMP wRFX A1C #### [facility] [address] [place] [address] USAProtein [Mass/volume] in Serum or PlasmaOrdered By: Franco Bradley on 64-50-7639Irtqenu [Mass/Vol]6.3 g/dLLow6.4-8.9[facility] Board[facility] HospitalComment on above:Performed By: #### CBC, EBS A1C, CMP wRFX A1C #### [facility] [address] [place] [address] USASerum globulin measurement by calculation (mass/volume) Ordered By: Franco Bradley on 08-57-4440Owgbsisb (S) [Mass/Vol]2.3 g/dLMercy Health St. Elizabeth Boardman HospitalComment on above:Performed By: #### CBC, EBS A1C, CMP wRFX A1C #### [facility] [address] [place] [address] USASerum or plasma albumin/globulin mass ratioOrdered By: Franco Bradley on 02-12-3262Fkzuxmp/Globulin [Mass ratio]1.7 {ratio}[facility] Board[facility] HospitalComment on above:Performed By: #### CBC, EBS A1C, CMP wRFX A1C #### [place] [address] USASerum or plasma anion gap determinationOrdered By: Franco Bradley on 33-47-7447Igzaa gap [Moles/Vol]10.0 mmol/L6.0-15.0[facility] Board[facility] HospitalComment on above:Performed By: #### CBC, EBS A1C, CMP wRFX A1C #### [facility] [address] [place] [id number] USASodium [Moles/volume] in Serum or PlasmaOrdered By: Franco Bradley on 63-39-2301Lrhcpa [Moles/Vol]141 mmol/H196-923YamugpziyMercy Health St. Elizabeth Boardman HospitalComment on above:Performed By: #### CBC, EBS A1C, CMP wRFX A1C #### [place] [address] USAUrea nitrogen [Mass/volume] in Serum or PlasmaOrdered By: Franco Bradley on 16-98-6716Spqb nitrogen [Mass/Vol]14 mg/dL7-25[facility] Elizabeth Boardman HospitalComment on above:Performed By: #### CBC, EBS A1C, CMP wRFX A1C #### [facility] [address] [place] [address] USAProvider Letteron [phone] LetterProvider Letter April 12, 2025 [place] [address] [place] [address] : 1955 To Whom It May Concern, Please excuse above patient from work. Date of Illness: From: 04/12/2025 To: 04/15/2025 May Return to Work On: 04/16/2025 Sincerely, [place] [id number] CpbzurXqbzscTrinity Health System West CampusAmbulatory Visit Summaryon 80-53-3111Rnfztuyqaf Visit SummaryAmbulatory Visit Summary [place] BACON :1955 Visit Date:04/11/2025 [...] Follow-Up Appointments Wednesday 2:30 PM EDT Where: [place] [id number]- Medications What How Much When Why Instructions Unchanged aspirin 81 Milligram By Mouth Every day Contact prescribing physician if questions or concerns Unchanged cholecalciferol (Vitamin D3 2000 intl units oral Tab) 50 Microgram By Mouth Every day Contact prescribing physician if questions or concerns Unchanged escitalopram (escitalopram 5 mg oral tablet) See instructions Take 1 tablet by mouth oncedaily Contact prescribing physician if questions or concerns Unchanged meloxicam (meloxicam 15 mg Tab) See instructions Take 1 tablet by mouth once daily Contact prescribing physician if questions or concerns Unchanged Misc Prescription (Compression stockings) See instructions BMI 22.0- 22.9, adult Non-smoker wear stocking when on your feet > 8 hours per day Contact prescribing physician if questions orconcerns Unchanged omeprazole (omeprazole 40 mg Cap-DR) 1 [...] tonsils. This can b (more content not included)...Normal [facility] Medicine Office/Clinic Noteon 56-29-2723Bqtter Medicine Office/Clinic NoteFaboston sanatorium Medicine Office/Clinic Note Chief Complaint Sore Throat [...] throat. Her grandson recently recovered from hand, foot,and mouth disease, which is known to be [...] high cholesterol, which was noted by her automatic hemmer. However, her cholesterol level was previously recorded [...] No qualifying data available Patient Education Pharyngitis, Mrxa-by-Mjri Problem List/Past Medical History Ongoing Acute bronchitis [...] Given Patient Refuses SA (more content not included)...[facility] System West CampusComment on above:Result Comment: Electronically Signed By: LIZBETH QUINTERO CNP\tyler\Date and Time Signed: 04/11/25 19:48 EDTOffice Visiton 33-66-8679Vzycmg-up visit [id number] [place] Bacon 1955 F Date Provider Department Center 04/09/2025 AUGUST LOPEZ JOSEMANUEL Mcpherson [facility] Family History Family Status - Relation Status Age at Mother Father Level of Service:29854 [place] OFFICE/OUTPATIENT ESTABLISHED LOW MDM 20 [facility] HospitalAmb[facility] Summaryon 03-23-2025 Ambulatory Visit SummaryAmbulatory Visit Summary [place] BACON :1955 Visit Date:03/23/2025 [...] Follow-Up Appointments Wednesday 2:30 PM EDT Where: [facility] [address] [address] Medications What How Much When Why Instructions Unchanged aspirin 81 Milligram By Mouth Every day Unchanged cholecalciferol (Vitamin D3 2000 intl units oral Tab) 50 Microgram By Mouth Every day Unchanged escitalopram (escitalopram 5 mg oral tablet) See instructions Take 1 tablet by mouth oncedaily Unchanged meloxicam (meloxicam 15 mg Tab) See [...] signed up for this yet, please contact Daleeli at [phone] to get signed up today. Language Information Language assistance services are available as needed. NormalPro[facility] w[facility] Auto Diffon 03-23-2025 Basophil Absolute0.1 E9/LNormal0.0-0.2Fisher [facility]no[facility] Pratt HospitalComment on above:Performed By: #### [id number] #### [facility] [address] [place], [place] [address]Yfsekjaim/100 WBC (Bld)1.1 %Normal0.0-2.0[facility] Hospital SouthComment on above:Performed By: #### [id number] #### [facility] [address] [place], [place] [address]Sly Absolute0.2 E9/LNormal0.0-0.5FWayne Hospital Comment on above:Performed By: #### [id number] #### [facility] [address] [place], [place] [address]Begmgvszdcx/100 WBC (Bld)4.0 %Normal0.0-8.0[facility] Hospital SouthComment on above:Performed By: #### [id number] #### [facility] [address] [place], [place] [address]Xalwcrfxsjj distribution width (RBC) [Ratio]15.1 %High10.9-14.2 [facility] SouthComment on above:Performed By: #### [id number] #### [facility] [address] [place] [address]Vxqlfkgges (Bld) [Volume fraction]41.0 %Aoerjj94.0-46.0[facility] SouthComment on above:Performed By: #### [id number] #### [facility] [address] [place] [address]Nglvtlddeg (Bld) [Mass/Vol]13.8 g/sVTrugyd97.0-16.0[facility] SouthComment on above:Performed By: #### [id number] #### [facility] [address] [place] [address]Cbvgb Absolute1.1 E9/LNormal1.0-4.0[facility] Comment on above:Performed By: #### [id number] #### [facility] [address] [place] [address]Tfgtapkymji/100 WBC (Bld)18.6 %Pfjrpd21.0-50.0[facility] SouthComment on above:Performed By: #### [id number] #### [facility] [address] [place] [address]XOW (RBC) [Entitic mass]29.1 sfDwcftn81.0-34.0[facility] SouthComment on above:Performed By: #### [id number] #### [facility] [address], [place] [address]DYBC (RBC) [Mass/Vol]33.8 g/iBXlxxei94.4-36.0[facility] SouthComment on above:Performed By: #### [id number] #### [facility] [address] [place] [address]VHP (RBC) [Entitic vol]86.3 fEAmbexl19.0-100.0[facility] SouthComment on above:Performed By: #### [id number] #### [facility] [address] [place] [address]Reeq Absolute0.4 E9/LNormal0.2-1.0[facility] Comment on above:Performed By: #### [id number] #### [facility] [address] [place] [address]Whgtwvcby/100 WBC (Bld)6.8 %Normal4.0-14.0[facility] SouthComment on above:Performed By: #### [id number] #### [facility] [address] [place] [address]Yblxah Absolute4.2 E9/LNormal2.0-7.5FWayne Hospital Comment on above:Performed By: #### [id number] #### [facility] [address], [place] [address]Okdgtq Auto69.5 %Fvkdhm79.0-75.0[facility] Comment on above:Performed By: #### [id number] #### [facility] [address], [place] [address]Ynlaijhf835.0 E9/MUvvsxo537.0-500.0[facility] Comment on above:Performed By: #### [id number] #### [facility] [address] [place] [address]Cnxapmob mean volume (Bld) [Entitic vol]7.8 fLNormal6.4-10.8 [facility] SouthComment on above:Performed By: #### [id number] #### [facility] [address], [place] [address]AVD8.8 E12/LNormal4.3-5.9[facility] SouthComment on above:Performed By: #### [id number] #### [facility] [address], [place] [address]NQZ0.1 E9/LNormal4.0-11.0[facility] SouthComment on above:Performed By: #### [id number] #### [facility] [address] [place] [address]FGFlu 41-80-6790Gclooas [Mass/Vol]4.1 g/dLNormal3.3-5.0[facility] SouthComment on above:Performed By: #### [id number] #### [facility] [address] [place] [address]Dqukdtz/Globulin [Mass ratio]1.6 {ratio}Normal1.1-2.2FWayne HospitalComment on above:Performed By: #### [id number] #### [facility] [address], [place] [address]Iwp Phos37 Int._Unit/OBzeqad49-38UnybmxPremier Health [facility] Comment on above:Performed By: #### [id number] #### [facility] [address], [place] [address]TMD79 Int._Unit/LNormal6-46[facility] SouthComment on above:Performed By: #### [id number] #### [facility] [address], [place] [address]Jbpzn gap [Moles/Vol]10 mmol/LNormal6-16[facility] SouthComment on above:Performed By: #### [id number] #### [facility] [address], [place] [address]NQO13 Int._Unit/LNormal5-43[facility] SouthComment on above:Performed By: #### [id number] #### [facility] [address], [place] [address]Owlm Total0.6 mg/dLNormal0.0-1.1FWayne Hospital Comment on above:Performed By: #### [id number] #### [facility] [address], [place] [address]XWF/Creat Ratio36 No OkpthMadq13-42YrmugwPremier Health Miami Valley Hospital South Comment on above:Performed By: #### [id number] #### [facility] [address], [place] [address]Qwmuesy [Mass/Vol]9.3 mg/dLNormal8.9-11.1FWayne HospitalComment on above:Performed By: #### [id number] #### [facility] [address], [place] [address]Kkjkovvd [Moles/Vol]107 mmol/ZCzkpyt153-556LalitgPremier Health Miami Valley Hospital SouthComment on above:Performed By: #### [id number] #### [facility] [address], [place] [address]FW7 [Moles/Vol]28 mmol/FHmhpfl31-41YnujurPremier Health Miami [facility] Hospital South Comment on above:Performed By: #### [id number] #### [facility] [address], [place] [address]Bmemlvyphz [Mass/Vol]0.7 mg/dLNormal0.5-1.3FWayne HospitalComment on above:Performed By: #### [id number] #### [facility] [address], [place] [address]Iedrootz (S) [Mass/Vol]2.5 g/dLNormal1.4-4.0[facility] SouthComment on above:Performed By: #### [id number] #### [facility] [address], [place] [address]Ybrovir [Mass/Vol]73 mg/tBMnbgjl12-380HbvdgdPremier Health Miami Valley Hospital SouthComment on above:Performed By: #### [id number] #### [facility] [address], [place] [address]Gxxoezwbv [Moles/Vol]4.3 mmol/LNormal3.5-5.3FWayne HospitalComment on above:Performed By: #### [id number] #### [facility] [address], [place] [address]Nvjxkts [Mass/Vol]6.6 g/dLNormal6.0-7.8[facility] SouthComment on above:Performed By: #### [id number] #### [facility] [address], [place] [address]Csclxk [Moles/Vol]141 mmol/OQcofrg583-015AkbuwePremier Health Miami Valley Hospital SouthComment on above:Performed By: #### [id number] #### [facility] [address], [place] [address]Ahqc nitrogen [Mass/Vol]25 mg/dLHigh5-21[facility] SouthComment on above:Performed By: #### [id number] #### [facility] [address], [place] [address]Ymnmo Panelon 27-66-6650Hbkfnuqhhcu [Mass/Vol]177 mg/dLNormal 120-200[facility] SouthComment on above:Performed By: #### [id number] #### [facility] [address], [place] [address]Hvzkrnilkrt in HDL [Mass/Vol]51 mg/dLInvalid Interpretation CodePremier Health Miami Valley Hospital SouthComment on above:Result Comment: '>= 60 LOW RISK' '<= 40 HIGH RISK'Performed By: #### [id number] #### [facility] [address], [place] [address]Yzykoplykuj in LDL [Mass/Vol]118 mg/dLNormal<=129[facility] SouthComment on above:Performed By: #### [id number] #### [facility] [address] [place], [place] [address]Cnvgppehrum in VLDL [Mass/Vol]14 mg/dLNormal7-40[facility] SouthComment on above:Performed By: #### [id number] #### [facility] [address], [place] [address]Trsyngtiidmt [Mass/Vol]70 mg/dLNormal<=149[facility] SouthComment on above:Performed By: #### [id number] #### [facility] [address], [place] [address]UZVzv 90-63-1271KBE Qn1.14 m[IU]/LNormal0.34-5.60[facility] SouthComment on above:Performed By: #### [id number] #### [facility] [address], [place] [address]Ionqucv D 25 Hydroxyon 90-18-9190Ihytzpg D 25 Tthopbv79.5 ng/mL Rhfaxt50.0-100.0[facility] SouthComment on above:Performed By: #### [id number] #### [facility] [address], [place] [address]aMEAwe 78-16-6350yOLL33 mL/min/1.73 i6Xhxegw>=59Prem[facility] SouthComment on above:Performed By: #### [id number] #### [facility] [address] [place], [place] [address]Eolpqont Letteron [phone] LetterProvider Letter February 16, [address] [place] [address] [place] [id number] : 1955 Dear [place] , We have been trying to reach you with no success. It is important that you return our call regarding your lab draw appointment on February 23, 2025 upon receiving this letter. Also, at the time of your call, please provide us with your current information. Thank you for your prompt attention to this matter. Sincerely, [address] [address] WmfyvxXxjjfuTrinity Health System West CampusAmbulatory Visit Summaryon [id number] Visit SummaryAmbulatory Visit Summary [place]AC[place] :1955 Visit Date:02/05/2025 [...] Follow-Up Appointments Wednesday 9:20 AM EDT Where: [address] [id number]- Wednesday 2:30 PM EDT Where: [address] [address]- Medications What How Much When Why Instructions Unchanged aspirin 81 Milligram By Mouth Every day Unchanged cholecalciferol (Vitamin D3 2000 intl units oral Tab) 50 Microgram By Mouth Every day Unchanged escitalopram (escitalopram 5 mg oral tablet) See instructions Take 1 tablet by mouth oncedaily Unchanged meloxicam (meloxicam 15 mg Tab) See [...] you for choosing us for your care. [facility] Medicine Office/Clinic Noteon 59-56-5297[place] Medicine Office/Clinic NoteFaboston sanatorium Medicine Office/Clinic Note HPI Staff complaints of [...] and drainage noted on exam. ears look good.throat red but no exudate. will send in amoxicillin. if not feeling better by Wednesday she will call in for medrol dose pack. RTC as needed Ordered: amoxicillin, 500 mg = 1 cap(s), Oral, TID, X 7 day(s), # 21 cap(s), Refills(s) 0, Pharmacy: [facility], 158, cm, 02/05/25 14:07:00 EDT, Height/Length Dosing, 52.9, kg, 02/05/25 14:07:00 EDT, Weight Dosing 2. BMI 21.0-21.9, adult (Z68.21: Body mass index [BMI] 21.0-21.9, adult) BMI education Ordered: amoxicillin, 500 mg = 1 cap(s), Oral, TID, X 7 day(s), # 21 cap(s), Refills(s) 0, Pharmacy: [facility], 158, cm, 02/05/25 14:07:00 EDT, Height/Length [...] (toreginon 5y-11y) vac - Not Given Patient RefusesrmTuscarawas HospitalComment on above:Result Comment: Electronically Signed By: Millie Florentino\.asaf\Date and Time Signed: 02/05/25 14:15 EDTAmbulatory Visit Summaryon 00-93-3725Grqyvhmffw Visit SummaryAmbulatory Visit Summary [place] BACON :1955 Visit Date:01/31/2025 [...] Follow-Up Appointments Wednesday 9:20 AM EDT Where: [address] [address]- Wednesday 2:30 PM EDT Where: [address] [address]- Medications What How Much When Why Instructions Unchanged aspirin 81 Milligram By Mouth Every day Unchanged cholecalciferol (Vitamin D3 2000 intl units oral Tab) 50 Microgram By Mouth Every day Unchanged escitalopram (escitalopram 5 mg oral tablet) See instructions Take 1 tablet by mouth oncedaily Unchanged meloxicam (meloxicam 15 mg Tab) See [...] you for choosing us for your care. [facility] Medicine Office/Clinic Noteon 53-98-5215Btblmg Medicine Office/Clinic [facility] Medicine Office/Clinic Note HPI Staff [place] is [...] daily, # 90 tab(s), Refills(s) 0, Pharmacy: [facility], 158, cm, 12/07/24 14:09:00 EDT, Height/Length Dosing, 51.9, kg, 12/07/2513:09:00 EDT, Weight Dosing escitalopram, See Instructions, Take 1 tablet by mouth once daily, # 90 tab(s), Refills(s) 0, Pharmacy: [facility], 158, cm, 01/31/25 10:20:00 EDT, Height/Length Dosing, 53.6, kg, 01/31/2510:20:00 EDT, Weight Dosing fluticasone nasal, 2 spray(s), Nasal, Daily, 16 gram, Refill(s) 0, each nostril, [facility], 158, cm, 08/31/24 14:31:00 EST, Height/Length Dosing, 49.6, kg, 08/31/24 14:31:00 EST, Weight Dosing omeprazole, 40 mg = 1 cap(s), Oral, Daily, X 90 day(s), # 90 cap(s), Refills(s) 3, Pharmacy: [facility], 158, cm, 01/31/25 10:20:00 EDT, Height/Length Dosing, 53.6, kg, 01/31/25 10:20:00 EDT, Weight Dosing omeprazole, 40 mg = 1 cap(s), Oral, Daily, # 90 cap(s), Refills(s) 0, Pharmacy: [facility], 158, cm, 12/07/24 14:09:00 EDT, Height/Length Dosing, 51.9, kg, 12/07/24 14:09:00 EDT, Weight Dosing oxybutynin, See Instructions, Take 1 tablet by mouth once daily, # 90 tab(s), Refills(s) 3, Pharmacy: [facility], 158, cm, 04/06/24 14:41:00 EDT, Height/Length Dosing, 54.1, kg, 04/06/24 14:41:00 EDT, Weight Dosing oxybutynin, 10 mg = 1 tab(s), Oral, Daily, # 90 tab(s), Refills(s) 3, Pharmacy: [facility], 158, cm, 01/31/25 10:20:00 EDT, [...] Cardiac catheterization, Cholecystectomy, Colonoscop (more content not included)...[facility] CampusComment on above:Result Comment: Electronically Signed By: Millie Florentino\Date and Time Signed: 01/31/25 10:47 EDTFamily Medicine Office/Clinic Noteon 79-28-2183Azstxv Medicine Office/Clinic NoteFaboston sanatorium Medicine Office/Clinic Note HPI Staff [place] is [...] further evaluation. pt had normal mammogram in June.i feel it is fibrocystic tissue that is inflamed. pt admits to drinking a lot of caffeine. order fax[facility] 2. BMI 20.0-20.9, adult (Z68.20: Body [...] oral tablet, See Instructions Flonase 0.05 mg/inh [place], 2 spray(s), Nasal, Daily meloxicam 15 mg [...] (domitila 5y-11y) vac - Not Given Patient RefusesNormalPremier Health Miami Valley Hospital SouthComment on above:Result Comment: Electronically Signed By: Millie Florentino.asaf\Date and Time Signed: 12/07/24 14:28 EDTReminderson 02-65-6213OiymgtcooViocnluoh From: Arabella Herrera LPN To: N - Clinical; Sent: 09/28/2024 14:17:59 EST Show up: 08/27/2034 07:00:00 EST Subject: colonoscopy recall Due Date/Time: 09/27/2034 07:00:00 EST Reminder/Recall Patient due for screening colonoscopy 09/27/2034.[facility] Medicine Office/Clinic Noteon 34-72-9544Euhlyf Medicine Office/Clinic NoteFuller Hospital Medicine Office/Clinic Note HPI Staff [place] is [...] Daily, 16 gram, Refill(s) 0, each nostril, [facility], 158, cm, 08/31/24 14:31:00 EST, Height/Length Dosing, 49.6, kg, 08/31/24 14:31:00 EST, Weight Dosing Influenza Type A&B POC 62759 Rapid COVID POC 99109 Orders: amoxicillin, 500 mg = 1 cap(s), Oral, TID, X 7 day(s), # 21 cap(s), Refills(s) 0, Pharmacy: [facility], 158, cm, 08/31/24 14:31:00 EST, Height/Length [...] oral tablet, See Instructions Flonase 0.05 mg/inh [place], 2 spray(s), Nasal, Daily meloxicam 15 mg [...] (08/31/24 14:43:00) Rapid Covid POC: Negative (08/31/24 14:43:00)[facility] Comment on above:Result Comment: Electronically Signed By: Millie Florentino\.br\Date and Time Signed: 08/31/24 14:46 ESTAmbulatory Visit Summaryon 83-27-7870Lagbdrivnb Visit SummaryAmbulatory Visit Summary ARLEENCATA KAISERLouann Selby :1955 Visit Date:07/19/2024 Ambulatory Visit Instructions Your [...] Follow-Up Appointments Wednesday 2:30 PM EDT Where: [place] [id number]- Medications What How Much When Why Instructions Unchanged aspirin 81 Milligram By Mouth Every day Contact prescribing physician if questions or concerns Unchanged cholecalciferol (Vitamin D3 2000 intl units oral Tab) 50 Microgram By Mouth Every day Contact prescribing physician if questions or concerns Unchanged escitalopram (escitalopram 5 mg oral tablet) See instructions Take 1 tablet by mouth oncedaily Contact prescribing physician if questions or concerns Unchanged meloxicam (meloxicam 15 mg Tab) See instructions Take 1 tablet by mouth once daily Contact prescribing physician if questions or concerns Unchanged Misc Prescription (Compression stockings) See instructions BMI 22.0- 22.9, adult Non-smoker wear stocking when on your feet > 8 hours per day Contact prescribing physician if questions orconcerns Unchanged oxybutynin (oxybutynin 10 mg ER Tab) [...] you for choosing us for your care. [facility] CampusXR lumbar spine min 4V*on 97-93-5347OK lumbar spine min 4V*[facility] [address] [place] [address] XRay Report Signed Patient: [place] Bacon MR#: [id number] : 1955 Acct:[id number] Age/Sex: 68 / F ADM Date: 05/27/24 Loc: XDUCLY Room: Type: [facility] Attending Dr: Zoila العراقي PROTECTION MANAGER Copies to: Zoila العراقي APRN Ordering Provider: [...] Marinelli Jr., D.O.05/27/2024 2:47 PM Dictation Location: [place] [address] Transcribed By: [facility] 05/27/24 1447 Dictated By: Eleuterio Marinelli Jr, DO 05/27/24 1446 Signed By: 05/27/24 1447[facility] Physician GroupFollow-Upon 85-75-4107Mttezr-Up [id number] [place] Bacon P 1955 F Date Provider Department Center 04/21/2024 3848-DAVID POLO CARD [facility] No family history on file Level of Service:31804 MA OFFICE/OUTPATIENT ESTABLISHED LOW MDM 20 MIN Reason for Visit and Comments: Follow-up [397608] - [facility] Follow up Concerns: No further cardiac concerns/symptoms.[facility] Vital Signs Date TimeVital SignValuePerforming HoimfdyaiBaigbruu12-13-5272 09:45-0400Body azwexe100.48 Shady Roth MD Work Phone: 1(476)[address] [place], [place] 6685109-29-2025 09:45-0400 Body mass index (BMI) [Ratio]21.9 kg/l9DnffekLuisito Roth MD Work Phone: 1(924)[address] [place], [place] 6685109-29-2025 09:45-0400 Body fqsenx53.43 kgLuisito Roth MD Work Phone: 1(040)[address] [place], [place] 6685109-08-2025 10:37-0400 Body .48 Shady Roth MD Work Phone: 1(155)[address] [place], [place] 6685109-08-2025 10:37-0400 Body mass index (BMI) [Ratio]21.9 kg/s4MkcdkwLuisito Roth MD Work Phone: 1(651)[address] [place], [place] 6685109-08-2025 10:37-0400 Body exmvbj44.43 kgLuisito Roth MD Work Phone: 1(636)[address] [place], [place] 6685108-21-2025 18:27-0400 Diastolic blood cizadwaz26 mm[Hg]Luisito Roth MD Work Phone: 1(039)[address] [place], [place] 6685108-21-2025 18:27-0400 Heart rate79 /Deya Roth MD Work Phone: 1(029)[address] [place], [place] 6685108-21-2025 18:27-0400 Respiratory rate16 /Deya Roth MD Work Phone: 1(537)[address] [place], [place] 6685108-21-2025 18:27-0400 SaO2% (BldA) [Mass fraction]97 %Luisito Roth MD Work Phone: 1(852)[address] [place], [place] 6685108-21-2025 18:27-0400 Systolic blood qmigxxnl574 mm[Hg]Luisito Roth MD Work Phone: 1(689)[address] [place], [place] 6685108-21-2025 17:50-0400 Body hcexqdiaqhp07.7 [degF]Luisito Roth MD Work Phone: 1(180)[address] [place], [place] 6685108-21-2025 17:23-0400 Inhaled oxygen flow rate7 L/minSlivan Roth MD Work Phone: 1(108)[address] [place], [place] 6685108-21-2025 11:04-0400 Body aftlja073.48 cmSlivna Roth MD Work Phone: 1(365)[address] [place], [place] 6685108-21-2025 11:04-0400 Body kgLuisito Roth MD Work Phone: 1(786)[address] [place], [place] 6685108-18-2025 13:47-0400 Body mearyb429.48 cmSlivan Roth MD Work Phone: 1(524)[address] [place], [place] 6685108-18-2025 13:47-0400 Body mass index (BMI) [Ratio]22.8 kg/p0SdpumbLuisito Roth MD Work Phone: 1(385)[address] [place], [place] 6685108-18-2025 13:47-0400 Body .69 kgLuisito Roth MD Work Phone: 1)[address] [place], [place] 6685111-13-2024 15:52-0500 Blood Pressure LocationMichael NILL 826-0429Kjgzej-VqslhMetrohealth [facility]11-13-2024 15:52-0500Diastolic blood hovvnifr34 mm[Hg]Addy GONZALEZ 957-9852Cgtlee-HgzfmMetrohealth Parma Medical Center11-13-2024 15:52-0500Heart rate72 /minMichael NILL 651-7872Rrgxjr-IjsmlMetrohealth Parma [facility] Center11-13-2024 15:52-0500Respiratory rate16 /minMichael NILL 596-6986Buiwnj-GmfqkMetrohealth Parma Medical Center11-13-2024 15:52-0500Systolic blood mm[Hg]Addy GONZALEZ 240-4294Rnoxgs-Vnczs General Surgery Ovvcthqa28-11-2619 14:05-0400Body .21 cmMD Luisito Roth Work Phone: 1(846)999-[address] [place], [place] 5747009-21-2024 14:05-0400 Body mass index (BMI) [Ratio]21.4 kg/m2MD Luisito Roth Work Phone: 1(878)606-[address] [place], [place] 5747009-21-2024 14:05-0400 Body ohknalpjuat25.2 [degF]MD Luisito Roth Work Phone: 1(664)317-[address] [place], [place] 5747009-21-2024 14:05-0400 Body .16 kgMD Luisito Roth Work Phone: 1(355)[address]09-21-2024 14:05-0400 Diastolic blood cgxtaaqy70 mm[Hg]MD Luisito Roth Work Phone: 1(090)[address]09-21-2024 14:05-0400 Heart rate56 /minMD Luisito Roth Work Phone: 1(365)275-[address] [place], [place] 5747009-21-2024 14:05-0400 SaO2% (BldA) [Mass fraction]98 %MD Luisito Roth Work Phone: [phone]09-21-2024 14:05-0400 Systolic blood skjstelt003 mm[Hg]MD Luisito Roth Work Phone: 1(015)289-[address] [place], [place] 5747002-23-2024 13:26-0500 Blood Pressure LocationFRTRAE NUNEZ 568-4708Rlqbdu-VchxyFairfield Medical Center Convenient Uqmy34-77-1803 13:26-0500Body vbzouynlgsc03.88 [degF]PHILLIP NUNEZ 390-6651Mmbzev-OfnbzFairfield Medical Center [facility]venient Rsei23-99-8890 13:26-0500Diastolic blood piyzwdzx55 mm[Hg]PHILLIP NUNEZ 280-7550Cztwfn-XcdlwFairfield Medical Center Convenient Npqw27-01-6501 13:26-0500Heart rate77 /minFRTRAE NUNEZ 531-3807Fyphog-EbqxuFairfield Medical Center [facility]venient Entc59-85-4257 13:26-1482ErG4% (BldA) [Mass fraction]96 %PHILLIP NUNEZ 389-1925Rzvjsw-MrpotFairfield Medical Center Convenient Pcrz12-27-3344 13:26-0500Systolic blood bzlcdvle132 mm[Hg]PHILLIP NUNEZ 608-9976Hjdvfx-SudxdFairfield Medical Center [facility]venient Care Encounters Encounter DateEncounter TypeCare ProviderFacilityStart: 55-04-6621plwacdylxqQkqe L SchwabFacility:[facility] BellevueStart: 05-14-1429fpowckjjsbXeos L Carlos Facility:[facility]Start: 06-15-2025 End: 87-35-8240qtwhtxqlcrQqqz L SchwabFacility:[facility]Start: 06-04-2025 End: 81-88-0747bkudixfmkdKgeh L SchwabFacility:[facility] HospitalueStart: 06-04-2025 End: 72-32-7409otjvgwhfqcKorekh E Ross MD Work Phone: [facility] Work Phone: Start: 06-04-2025 End: 75-95-3239Esouwbm encounter procedureJustalida Bradley DO-[facility] [place] Work Phone: Start: 05-14-2025 End: 88-13-7047sufrnuylesYzpmos E Ross MD Work Phone: [facility] Work Phone: Start: 05-14-2025 End: 89-94-9275Fgicupa encounter procedureJustalida Bradley DO-[facility] [place] Work Phone: Start: 04-26-2025 End: 31-63-3951zhhtfuvpgsGfupho A KelleyFacrawford county memorial hospital:[facility] Hospitaltart: 71-62-4514Mzv-patient / Non-visitJustin A MirnaClarion Hospital [facility] Work Phone: Start: 04-24-2025 End: 43-31-1869Omhmkju encounter procedureJububba Bradley DO-Pre-Surgical Testing Work Phone: Start: 04-24-2025 End: 71-13-3697yltbqydcnrGnjdvq E Ross MD Work Phone: [facility] Work Phone: Start: 94-02-2504Rbftcochq for preprocedural laboratory examinationJububba Poole [facility] Physician GroupStart: 04-23-2025 End: 53-25-3287ubwextukrpZlyisr E Ross MD Work Phone: [facility] Work Phone: Start: 04-23-2025 End: 36-99-4894Efmbbta encounter procedureJububba Bradley [facility] Work Phone: Start: 04-11-2025 End: 33-88-1986rlqezfigqjXEOGAM A LEHMANNFacility:FT BellevueStart: 04-09-2025 End: 67-80-4669bfrbbhxhiaXLAOSK [facility] Start: 03-23-2025 End: 99-79-4412ursmkjcctnQrbz L SchwabFacility:FT BellevueStart: 03-08-2025 ambulatoryJodi L SchwabFacility:FT FM BellevueStart: 39-68-3356jpchggxvlfIagd L SchwabFacility:FT FM BellevueStart: 02-05-2025 End: 03-00-5476bqyqpctxijDwoo L SchwabFacility:FT FM BellevueStart: 01-31-2025 End: 84-53-4764qocibylsyhCiqh L SchwabFacility:FT FM BellevueStart: 12-07-2024 End: 22-71-2498mrzsvozgdcDkig L SchwabFacility:FT FM BellevueStart: 09-27-2024 End: 82-74-2597gnwezplfqgPbzmqth R NILLFacility:CD:[id number]: 08-31-2024 End: 98-84-5452oanqxuyswnDjxw L SchwabFacility:FT BellevueStart: 07-19-2024 End: 31-91-4497wodzkjaliaGgsthoo R NILLFacility: ueStart: 07-19-2024 End: 20-27-3481Mllxkvh encounter procedureMichael R NILL [phone]-Kfcys General [facility] [place] Start: 05-27-2024 End: 97-49-3272wsjstpheekGH Samuel E Ross Work Phone: [facility] Work Phone: Start: 05-27-2024 End: 21-14-7743Tjdzjbq encounter procedureMD Luisito Roth Work Phone: [facility]BU[facility] Work Phone: Start: 04-21-2024 End: 33-30-7140mnsnwowbwsQQRTUFWTriHealth Good Samar[facility] Hospital Start: 01-20-2024 End: 50-93-4101rizcgecgejIEACK A BROWNNot AvailableStart: 12-31-2023 End: 74-24-5858srxtpqjquwMRQD D HILLSNot AvailableStart: 10-29-2023 End: 74-46-3736Idupndy encounter procedureFRTRAE NUNEZ 551-8205Vahksj-WubwxFairfield Medical Center Convenient Care Start: 07-17-2022 End: 72-09-0033lygksravynWK KIM E KNIGHTFacility:H1 Procedures DateProcedureProcedure DetailPerforming ClinicianStart: 68-06-0413S-ray of lumbar spine, four or more views Luisitoivy Roth Work Phone: Start: 99-02-7040Guesyv-up visitFollow-upMOHAMAD ALGHOTHANIStart: 82-88-4255WuepwmvrxtyZpplwzk NILL Abdominal hysterectomyMichael NILL AppendectomyFRANCISCO NUNEZ Cardiac catheterizationMichael NILL CholecystectomyFRANCISCO NUNEZ ColonoscopyFRANCISCO NUNEZ Comment on above:01/24 normal repeat 5 years no polyps Dilation and curettage of uterusFRANCISCO NUNEZ Partial hysterectomyFRANCISCO NUNEZ Release of trigger fingerMichael NILL Release of trigger thumbMichael NILL Plan of Treatment DateCare ActivityDetailAuthorStart: 32-54-6155HE Ankle - right 2 [facility] Hospitaltart: 04-26-2025 End: 85-60-3760QbszwbgatGreene Memorial Hospitaltart: 38-44-9225YkwleeftgMer[facility] Health St. Elizabeth Boardman HospitalGlucose measurement estimated from glycated hemoglobin [facility] HospitalPatient EducationMagruder Hospital Ctr Work Phone: Patient referralMagruder Hospital Ctr Work Phone: XR Ankle - right GE 3 [facility]XR [facility] - right GE 3 [facility] Immunizations Immunization DateImmunizationNotesCare ProviderFacilityNEGATED: Highlighted row has not occurred!02-50-6738wqndtvcei virus vaccine, unspecified formulation Addy NILL 264-9983Hgepxk-ZppqeFairfield [facility] Center [facility] [place] NEGATED: Highlighted row has not occurred!54-47-9295mfngmfbvg virus vaccine, unspecified formulationFRANCISCO NUNEZ 459-0924Gxpnrm-TimfdUniversity Hospitals [facility] NEGATED: Highlighted row has not occurred!95-33-9389ASHK-CoV-2 mRNA (tomilena 5y-11y) Issac NUNEZ 114-9256Fudbsm-IvfmqUniversity Hospitals Lake West Medical Center Payers DatePayer CategoryPayerPolicy [id number] Health [id number] [id number] [id number] 2.16.840.1.568262.3.57[id number] 2..840.1.864201.3.57[id number] 2..840.1.207162.3.57[id number] 2.16.840.1.917928.3.57[id number] 2.16.840.1.031335.3.579.[id number] 2.16.840.1.901901.3.57[id number] 2.16.840.1.809303.3.57[id number] 2.16.840.1.402408.3.57[id number] 2.16.840.1.343157.3.57[id number] 2.840.1.813617.3.57[id number] 2.840.1.296275.3.57[id number] 2.840.1.877859.3.57[id number] 2.840.1.336006.3.57[id number] 2.0.1.372716.3.57[id number] 2.0.1.925288.3.57[id number] 2.0.1.767379.3.57[id number] 2.0.1.383414.3.57[id number] 2.840.1.797297.3.57[id number] 2.0.1.975154.3.57[id number] 2.840.1.581451.3.5[id number] 2.16840.1.3[id number] 2.840.1.880919.3.579.2.531 [id number] 2.840.1.635438.3.579.2.531 Social History DateTypeDetailFacilityStart: 10-29-2023 End: 54-79-7404Kbnaagg smoking statusNever smoked tobacco (finding)[facility] CareComment on above:denies use.Tobacco smoking status NeverFairfield Medical Center Convenient CareComment on above:denies use.Sex Assigned At [facility]tart: 00-48-7275Sxx Assigned At [facility] HospitalexFemale (finding) [facility] Medical Equipment Procedure CodeEquipment CodeEquipment Original TextEquipment IdentifierDates ORIF, fracture, ankleOrthopaedic fixation plate, non-bioabsorbable, sterile ()[id number] FDAStart: 56-00-7314CDYO, fracture, ankleOrthopaedic bone screw, non-bioabsorbable, non-sterile()[id number] FDAStart: 04-26-2025 ORIF, fracture, ankleOrthopaedic bone screw, non-bioabsorbable, non-sterile ()[id number] FDAStart: 17-94-5013KFKF, fracture, ankleOrthopaedic bone screw, non-bioabsorbable, non-sterile()[id number] FDAStart: 04-26-2025 ORIF, fracture, ankleOrthopaedic bone screw, non-bioabsorbable, non-sterile ()[id number] FDAStart: 28-28-0682QWXT, fracture, ankleOrthopaedic bone screw, non-bioabsorbable, non-sterile()[id number] FDAStart: 04-26-2025 ORIF, fracture, ankleOrthopaedic bone screw, non-bioabsorbable, non-sterile ()[id number] FDAStart: 76-89-9247WMGG, fracture, ankleOrthopaedic bone screw, non-bioabsorbable, non-sterile()[id number] FDAStart: 04-26-2025 ORIF, fracture, ankleOrthopaedic bone screw, non-bioabsorbable, non-sterile ()[id number] FDAStart: 46-53-3069TFMY, fracture, ankleOrthopaedic bone screw, non-bioabsorbable, non-sterile()[id number] FDAStart: 04-26-2025 Functional Status HahqMzmiynacbwVfpypuQtgfaypt24-21-7367Rliqebqakh StatusN/[facility]Val[facility] Surgery Tewbqlsp14-76-6938Owtivfuppk StatusN/[facility] Care Clinical Notes 04-21-2024 to 06-04-2025 Note Date & JmzdPyowPnolckts32-61-7340 NotePatient Education Mental and Behavioral Health Managing Anxiety, [...] does not go away even after the eventis over, and it can become a long- term (chronic) worry. Lowering stress and anxiety Talk with your health care provider or a counselor to learn more about lowering anxiety and stress.They may suggest tension-reduction techniques, such as: ??? [...] what triggers your reaction and then learn waysto manage your response. ??? Thinking about how [...] Therapy can help you and others better understandyour anxiety. How to recognize changes in your anxiety Everyone responds differently to treatment for anxiety. Recovery from anxiety happens when symptomslessen and stop interfering with your daily life at home or work. This may mean that you will startto: ??? Have better concentration and focus. Worry [...] not use any products (more content not included)...[facility]08-18-2025 Evaluation note* Diagnosis Onset Date Resolution Status Admit Date Trimalleolar fracture of right ankle acuteAugust 2024 1:13pm [facility] Work Phone: 1(211) 235-489308-18-2025 Evaluation note* Diagnosis Onset Date Resolution Status Admit Date Trimalleolar fracture of right ankle acuteAugust 2024 1:13pmOther specified postprocedural statesacuteSeptember 2024 10:10amTrimalleolar fracture of right ankleacuteSeptember 2024 10:10am [facility] Work Phone: 1(883) 442-876108-18-2025 Evaluation note* Diagnosis Onset Date Resolution Status Admit Date Trimalleolar fracture of right ankle acuteAugust 2024 1:13pmOther specified postprocedural statesacuteSeptember 2024 10:10amTrimalleolar fracture of right ankleacuteSeptember 2024 10:10amOther specified postprocedural statesacuteSeptember 2024 9:29am Trimalleolar fracture of right ankleacuteSeptember 2024 9:29am [facility] Work Phone: 1(849) 442-731308-06-2025 NotePatient Education Infectious Disease Pharyngitis Pharyngitis is [...] these instructions at home: Medicines ??? Take vxsz-xtg-jmggcpc and prescription medicines only as told by [...] and water are not available, use hand isotope hydrologist. ??? Do not touch your eyes, nose, [...] provider. Document Revised: 11/19/2021 Document Reviewed: 11/19/2021 [employer] Patient Education ? 2023 [employer]Chime!.[facility] 04-09-2025 NoteUT Cardiology [facility] Subjective [place] Bacon is a 69 y.o. year old female patient being seen for 1 year follow up. Patient states she is doing good. Patient denies chest pain, SOB, LEAHY, palpitations/racing heart, dizziness, fatigue, or leg swelling. Patient states she has no complaints. Patient Active Problem List Diagnosis NSTEMI (non-ST elevated myocardial infarction) ([facility]) Gastroenteritis Anxiety Abnormal stress test [...] her presentation is consistent with type II NV (supply/demand mismatch) in setting of acute medical illness Stress test 03/28/2024: Negative treadmill EKG stress test for ischemia, The Colindres Score 5.5 consistent with low risk estimates an annual cardiovascular mortality of 0% and a five year survival of 95% Using the Colindres Sco (more content not included)...[facility]07-18-2025 NoteNurse Consultation Note Reason for Visit [...] (toreginon 5y-11y) vac - Not Given Patient RefusesPremier Health [facility]11-13-2024 NoteGeneral Surgery Office/Clinic Note Chief Complaint consultation for colonoscopy [facility] Staff 68 year old female presents on [...] Known Medication Allergies Social (more content not included)...[facility] SouthComment on above:Result Comment: Electronically Signed By: LISA MACIAS, Addy Julien\Date and Time Signed: 07/19/24 16:15 [id number] NoteCardiology Follow Up Progress Note Chief Complaint: Follow-up ([facility] Follow up/Concerns: No further cardiac concerns/symptoms. ) HPI: [place] Bacon is a 68 y.o. female who with a past medical history including overactive bladder, anxiety, vitamin D deficiency, and recent NSTEMI who presents to [place] for post hospitalization follow up. Patient was transferred to [facility] from outside hospital after presenting with complaints of abdominal pain, nausea, vomiting, and diarrhea x 8 times per day. She was found to be dehydrated, and fluid resuscitation was performed. Her troponin was found to be elevated, show she was transferred for further evaluation/management. [facility], patient was found to have a [...] Value Ventricular Rate 67 Atrial Rate 67 MA Interval 142 QRS DURATION 70 QT Interval 448 QTC CALCULATION(BAZETT) 473 P [place] 83 R-[place] -5 T Wave [place] -22 Impression Normal sinus rhythm Possible Inferior [...] Bubble Study Result Date: 03/27/2024 1 1 [facility] Heart Station [address] [place] [address] [phone] (fax) Echocardiogram-[facility] Name: [place] BACON Study Date: 03/27/2024 07:59 AM B/P: 109 mmHg/66 mmHg HR: Date of : 1955 Location: [facility] Height: 61 in. Age: 68 [...] Due to suboptima (more content not included)... [facility]ments Appointment Date:04/27/2024 01:00:00 PM Scheduled Provider: Location:[facility] Appointment Type:FM Medicare Wellness Subsequent [facility] Evaluation + Plan note Future Appointments Appointment Date:06/04/2025 02:30:00 PM Scheduled Provider: Location:[facility] Appointment Type:FM Medicare Wellness Subsequent Future Scheduled Tests Radiology* MA Mamm Screen w/CAD if perf and 3D Dimitri 06/01/24 [facility] [place] Evaluation note* Diagnosis Onset Date Resolution Status Low back pain acute [facility] Work Phone: Evaluation note* Diagnosis Onset Date Resolution Status Admit Date Trimalleolar fracture of right ankle acuteAugust 2024 1:13pm [facility] Work Phone: Hospital course Narrative No data available for this section [facility] Discharge instructions No data available for this section [facility] Discharge instructions Additional Instructions [...] narcotic pain medications. You may take NSAIDs/Tylenol [id number] as indicated on the bottle. You should [...] be scheduled with Dr. Bradley's office at [facility]. At your follow-up we will remove your splint and sutures. Please call to confirm your follow-up appointment. Dr. Franco Bradley [facility] setObject [place] [id number] [phone] [facility] Work Phone: Progress note No data available for this section [facility] Reason for referral (narrative)No reason for referral information availableMidd[facility]own [facility] Work Phone: Summary Purpose Family History No Family History Records Found Relationship Condition Age at Onset Recorded Date/T teresa father Pulmonary emphysema Unknown fatherDeceasedUnknownmotherDeceasedUnknownDementiaUnknownHypertensionUnknown Relationship Condition Age at Onset Recorded Date/T teresa father Pulmonary emphysema Unknown DeceasedUnknownmotherDementiaUnknownHypertensionUnknown Advance Directives No Advanced Directives Records Found [...] ceiling fan W19.XXXA - Unspecified fall, initial encounterReason for VisitLow back pain Chief Complaint Admit Date ER [...] 2024 1:13pm Other specified postprocedural states Se ptember 2024 10:10am Trimalleolar fracture of right ankle Sep tem2024 10:10am Chief Complaint Admit Date ER [facility] RT ANKLE FX WX April 23, 2025 1:13pm Fracture April 24, 2025 2: 50pm Fracture April 26, 2025 10 :27am 3 weeks post op May 14, 2025 10:10am [facility] 3 weeks June 04, 2025 9:29am Reason for Visit Admit Date Trimalleolar fracture of right ankle Aug ust 2024 1:13pm Other specified postprocedural states Se ptember 2024 10:10am Trimalleolar fracture of right ankle Sep tem2024 10:10am Other specified postprocedural states Se ptember 2024 9:29am Trimalleolar fracture of right ankle Sep tember 2024 9:29am Additional Source Comments INFORMATION SOURCE (unrecogn ized section and content) DATE CREATED AUTHOR 07/21/2022 [facility] DATE CREATED AUTHOR AUTHOR'S ORGANIZ ATION 01/23/2024 [facility] DATE CREATED AUTHOR AUTHOR'S ORGANIZ ATION 03/27/2025 [facility] DATE CREATED AUTHOR AUTHOR'S ORGANIZ ATION 04/11/2025 [facility] DATE CREATED AUTHOR AUTHOR'S ORGANIZ ATION 05/05/2025 [facility] DATE CREATED AUTHOR AUTHOR'S ORGANIZ ATION 06/09/2025 [facility] DATE CREATED AUTHOR AUTHOR'S ORGANIZ ATION 06/16/2025 [facility] Patient Care team informatio n (unrecognized section and content) Team Status: Active Member Role Status Dates Luisito Roth MD Primary Care Provider Active Team Status: Inactive Member Role Status Dates Luisito Roth MD Primary Care Provider Active Start: May 27, 2024 End: May 27juliano العراقي APRNAttending ProviderActiveStart: May 27, 2024 End: May 27, 2024 Team Status: Inactive Member Role Status Dates Zoila العراقي APRN Attending Provider Active S tart: May 27, 2024 End: May 27, 2024MARY Aguillonrist. [address] [facility] Care ProviderActiveStart: May 27, 2024 End: May 27, 2024 Team Status: Inactive Member Role Status Dates Luisito Roth MD Primary Care Provider Active Start: April 23, 2025 End: April 23, 2025Jububba Bradley DOAttending ProviderActiveStart: April 23, 2025 End: April 23, 2025 Team Status: Active Member Role Status Dates Millie Gonzalez TIE TAPE MACHINE OPERATOR-C Primary Care Provider Active Team Status: Inactive Member Role Status Dates Franco Bradley DO Attending Provider Active S tart: April 24, 2025 End: April 24, 2025Millie Gonzalez , TIE TAPE MACHINE OPERATOR-CPrimary Care ProviderActiveStart: April 24, 2025 End: April 24, 2025 Team Status: Active Member Role Status Dates Franco Bradley DO Attending Provider Active S tart: April 26, 2025 Franco Bradley DOOther ProviderActiveStart: April 26, 2025 Millie Gonzalez , TIE TAPE MACHINE OPERATOR-CPrimary Care ProviderActiveStart: April 26, 2025 Team Status: Inactive Member Role Status Dates Millie Gonzalez TIE TAPE MACHINE OPERATOR-C Primary Care Provider Active Start: May 14, 2025 End: May 14, 2025Jububba Bradley DOAttending ProviderActiveStart: May 14, 2025 End: May 14, 2025 Team Status: Inactive Member Role Status Dates Millie Gonzalez TIE TAPE MACHINE OPERATOR-C Primary Care Provider Active Start: June 04, 2025 End: June 04, 2025Jububba Bradley DOAttending ProviderActiveStart: June 04, 2025 End: June 04, 2025 [...] BE BASED ON THE PRIMARY CLINICAL RECORDS. [facility]. provides no warranty or guarantee of the accuracy or completeness of information in this document.
== END 2025-07-16 08:58 | disposition home or self-care (01) ==
LOC: RAD 08:58
PROVIDERS: PCP Nurse Practitioner; Visit Provider Orthopaedic Surgery Orthopaedic Trauma
DX: S82.851D Displaced trimalleolar fracture of right lower leg, subsequent encounter for closed fracture with routine healing (principal); Z98.890 Other specified postprocedural states
CPT/HCPCS: 73610